=== PATIENT | female | born 1950 | race Caucasian/White ===

== ENCOUNTER → 2016-08-15 | Outpatient (CLI) | payer BC ==
[~2016-08-15] MED LIST: BNC40 PO; DLTCD/240 PO; METO10TA3 PO; NSNN50; NXM/40 PO; PHEN100C88 PO; PLV75 PO; RANI300T PO
[2016-08-15 11:42] LABS: BASO % 0.3 %; BASO ABS # 0.02 K/uL (0-0.2); COMPLETE YES; EOS % 6.5 %; HEMATOCRIT 45.4 % (37-47); IG% 0.2 %; LYMPH ABS # 2.25 K/uL (1.2-3.4); MEAN CELL VOLUME 96.8 fL (80-100); MEAN CORPUSCULAR HEMOGLOBIN 33.5 pg (25-34); MEAN CORPUSCULAR HGB CONC 34.6 g/dl (32-36); MEAN PLATELET VOLUME 10.4 fL (7.4-10.4); PLATELET COUNT 277 K/uL (130-400); RED BLOOD COUNT 4.69 M/uL (4.2-5.4); WHITE BLOOD COUNT 6.42 K/uL (4.8-10.8)
[2016-08-15 11:50] LABS: ALT/SGPT 22 U/L (12-78); AST/SGOT 15 U/L (15-37); BLOOD UREA NITROGEN 12 mg/dl (7-18); BUN/CREATININE RATIO 15.2 (10-20); CALCIUM 9.1 mg/dl (8.5-10.1); CARBON DIOXIDE 29 mmol/L (21-32); CHLORIDE 107 mmol/L (98-107); CREATININE 0.81 mg/dl (0.60-1.20); GLUCOSE 88 mg/dl (70-99); POTASSIUM 3.8 mmol/L (3.5-5.1); SODIUM 143 mmol/L (136-145)
[2016-08-15 12:01] LABS: ALB/GLOB RATIO 1.2 (0.9-2); ALKALINE PHOSPHATASE 74 U/L (45-117); CHOLESTEROL 169 mg/dl (0-200); HDL CHOLESTEROL 84 mg/dl; LDL CHOLESTEROL CALCULATED 69 mg/dl; TRIGLYCERIDES 78 mg/dl (0-150); VERY LOW DENSITY LIPOPROT CALC 16 mg/dl
[2016-08-15 13:49] LABS: URINE APPEARANCE CLEAR (CLEAR); URINE BILIRUBIN NEG (NEG); URINE COLOR DK YELLOW; URINE EPITHELIAL CELL AUTO 20-30 /lpf (0-5); URINE NITRITE NEG (NEG); URINE SPECIFIC GRAVITY 1.019 (1.000-1.030); UROBILINOGEN NEG (NEG)
[2016-08-15 13:50] LABS: MANUAL MICROSCOPIC REQUIRED? NO; REVIEW REQ? NO
== END | disposition home or self-care (01) ==
LOC: C.LABBC 07:33
PROVIDERS: ATTEND Anesthesiology
DX: M81.0 Age-related osteoporosis without current pathological fracture (principal); J44.9 Chronic obstructive pulmonary disease, unspecified; C96.6 Unifocal Langerhans-cell histiocytosis; I10 Essential (primary) hypertension; G47.33 Obstructive sleep apnea (adult) (pediatric); R53.83 Other fatigue

== ENCOUNTER → 2017-03-26 | Outpatient (CLI) | payer BC ==
--- NOTE | 2017-03-26 15:23 | MAMMOGRAPHY REPORT ---
BILATERAL DIGITAL SCREENING MAMMOGRAM WITH CAD: 03/26/2017 CLINICAL HISTORY: Routine screening. Patient has no complaints. TECHNIQUE: Bilateral CC and MLO views were obtained. Current study was also evaluated with a Comput er Aided Detection (CAD) system. COMPARISON: Comparison is made to exams dated: 03/23/2016 mammogram, 03/22/2015 mammogram, 03/19/2014 m ammogram, 03/17/2013 mammogram, 03/14/2012 mammogram, and 03/13/2011 mammogram - [facility] ter. BREAST COMPOSITION: There are scattered areas of fibroglandular density in both breasts. FINDINGS: Linear scar markers overlie each breast, denoting skin surgical scars. There are scattere d benign coarse calcifications bilaterally. There is a 5 mm focal asymmetry in the 12:00 posterior left breast, for which additional spot domonique jacquelyn tomosynthesis views and possible ultrasound are recommended. Nodular asymmetries in the lateral , middle one third of the right breast on the CC view are increasingly conspicuous compared to prior exams. Although they could represent normal overlapping glandular tissue, additional spot compressio n tomosynthesis views and possibly ultrasound are recommended. No other suspicious mass, architectural distortion or cluster of microcalcifications is seen bilatera lly. IMPRESSION: ACR BI-RADS CATEGORY 0: INCOMPLETE EVALUATION: NEED ADDITIONAL IMAGING EVALUATION The 5 mm focal asymmetry in the 12:00 posterior left breast, and nodular asymmetries in the lateral r ight breast need additional imaging evaluation. The patient will be called to schedule an appointment. Approximately 10% of breast cancers are not detected with mammography. A negative mammographic report should not delay biopsy if a clinically suggestive mass is present. Shi Streeter M.D. ay/:03/26/2017 14:02:18 [employer]p Analytics: Deedee Fish RT(R)(M), [facility] letter sent: Addl Imaging 0 BI-RADS Code: ACR BI-RADS Category 0: Incomplete Evaluation: Need Additional Imaging Evaluation
== END | disposition home or self-care (01) ==
LOC: C.MAMM 09:34
PROVIDERS: ATTEND Internal Medicine Pulmonary Disease
DX: Z12.31 Encounter for screening mammogram for malignant neoplasm of breast (principal); R92.8 Other abnormal and inconclusive findings on diagnostic imaging of breast

== ENCOUNTER → 2017-03-29 | Outpatient (CLI) | payer BC ==
--- NOTE | 2017-03-29 16:11 | MAMMOGRAPHY REPORT ---
BILATERAL DIGITAL DIAGNOSTIC MAMMOGRAM TOMOSYNTHESIS AND TARGETED BILATERAL ULTRASOUND: 03/29/2017 CLINICAL HISTORY: Callback from screening mammogram for bilateral asymmetries. TECHNIQUE: Breast tomosynthesis in addition to standard 2D mammography was performed. Spot compress ion bilateral CC and left MLO 2-D and tomosynthesis images were obtained. COMPARISON: Comparison is made to exams dated: 03/26/2017 mammogram, 03/23/2016 mammogram, 03/22/2015 m ammogram, 03/19/2014 mammogram, 03/17/2013 mammogram, and 03/14/2012 mammogram - [facility]ter. BREAST COMPOSITION: The tissue of both breasts is heterogeneously dense, which may obscure small mas ses. FINDINGS: Spot imaging views of the left breast demonstrate a lobulated 6 mm partially circumscribed and partially obscured low-density mass in the left 12:00 posterior breast. Compression views of th e right breast demonstrate 2 persistent nodular asymmetries within the right lateral breast seen on t he cc view only, one measuring 4 mm and the other measuring approximately 6 mm. Targeted ultrasound was performed of the right lateral breast in the region of the mammographic asymm etries. In the right breast at 10:00, 2 cm from the nipple, there is an oval anechoic circumscribed 3 x 3 m mass, consistent with a cyst. In the right breast at 10:00 periareolar region, there is also a round circumscribed anechoic mass with a thin internal septation, measuring 4 x 4 mm. These sarah s likely correspond with the nodular asymmetries seen mammographically. Targeted ultrasound was performed of the left 12:00 breast in the region of the mammographic mass. T here is a possible oval hypoechoic circumscribed 4 x 4 mm mass in the left 12:00 periareolar breast. This may potentially correspond with the mammographic mass and is probably benign and may represent a cyst or focal duct ectasia. In the left 11:00 periareolar breast, there is an oval circumscribed i soechoic 7 x 7 mm mass, which is probably benign and may represent a normal fat lobule versus a benig n-appearing solid mass. In the left 6:00 breast, 2 cm from the nipple, there is a 7 x 7 mm anechoic benign simple cyst, as well as an adjacent 4 mm simple cyst. IMPRESSION: ACR-BI-RADS CATEGORY 3: PROBABLY BENIGN, TARGETED ULTRASOUND ACR-BI-RADS CATEGORY 3: PRO BABLY BENIGN 1. Low density, partially circumscribed 6 mm mass in the left 12:00 posterior breast mammographicall y. A definite sonographic correlate is not evident although a few probable cysts were seen on ultras ound one of which may correlate. Recommend follow-up diagnostic tomosynthesis mammograms of the left breast and possible ultrasound in 6 months to reevaluate. 2. Two small nodular asymmetries seen within the right lateral breast mammographically, with 2 cysts seen within the right breast at 10:00 on ultrasound which are felt to correspond with the asymmetrie s. Recommend follow-up diagnostic tomosynthesis mammograms of possible ultrasound of the right breas t in 6 months to confirm stability. The patient has been verbally notified of the results. Approximately 10% of breast cancers are not detected with mammography. A negative mammographic report should not delay biopsy if a clinically suggestive mass is present. Shannan Estevez M.D. ah/:03/29/2017 14:48:55 Form Setter: Daniela BONILLA(Mary)(M), [facility] letter sent: Follow Up Recommended 3 BI-RADS Code: ACR-BI-RADS Category 3: Probably Benign Ultrasound BI-RADS: ACR-BI-RADS Category 3: Pr obably Benign
== END | disposition home or self-care (01) ==
LOC: C.MAMM 13:14
PROVIDERS: ATTEND Internal Medicine Pulmonary Disease
DX: N63 Unspecified lump in breast (principal); N60.01 Solitary cyst of right breast; R92.8 Other abnormal and inconclusive findings on diagnostic imaging of breast

== ENCOUNTER → 2017-04-26 | Outpatient (CLI) | payer BC | END | disposition home or self-care (01) | LOC: C.MAMM 12:45 | PROVIDERS: ATTEND Physician Assistant | DX: M81.0 Age-related osteoporosis without current pathological fracture (principal); M85.89 Other specified disorders of bone density and structure, multiple sites ==

== ENCOUNTER → 2017-04-27 | Outpatient (CLI) | payer BC ==
--- NOTE | 2017-04-27 10:55 | DIAGNOSTIC IMAGING REPORT ---
RIGHT FOOT 3 VIEWS CLINICAL HISTORY: Right foot pain. FINDINGS: 3 views of the right foot are obtained. No prior studies are available for comparison at the time of dictation. The skeletal structures are osteopenic. No fracture is seen. Mild arthritic change is noted at the first metatarsophalangeal joint. A small os naviculari is incidentally noted. The overlying soft tissues are within normal limits. IMPRESSION: No acute bony abnormality is seen in the right foot. Electronically signed by: Carlos Vicente M.D. 04/27/2017 10:54 AM Dictated Date/Time: 04/27/2017 10:52 AM
== END | disposition home or self-care (01) ==
LOC: C.RDSM 10:40
PROVIDERS: ATTEND Physician Assistant
DX: M79.671 Pain in right foot (principal)

== ENCOUNTER → 2017-07-09 | Outpatient (CLI) | payer BC ==
[2017-07-09 11:17] LABS: BASO % 0.3 %; BASO ABS # 0.02 K/uL (0-0.2); COMPLETE YES; EOS % 8.2 %; HEMATOCRIT 46.8 % (37-47); IG% 0.1 %; LYMPH % 35.5 %; LYMPH ABS # 2.48 K/uL (1.2-3.4); MEAN CELL VOLUME 97.1 fL (80-100); MEAN CORPUSCULAR HEMOGLOBIN 32.6 pg (25-34); MEAN CORPUSCULAR HGB CONC 33.5 g/dl (32-36); MEAN PLATELET VOLUME 10.3 fL (7.4-10.4); MONO % 7.6 %; NEUT % 48.3 %; PLATELET COUNT 320 K/uL (130-400); RED BLOOD COUNT 4.82 M/uL (4.2-5.4); WHITE BLOOD COUNT 6.99 K/uL (4.8-10.8)
[2017-07-09 11:50] LABS: ALT/SGPT 25 U/L (12-78); AST/SGOT 16 U/L (15-37); BLOOD UREA NITROGEN 12 mg/dl (7-18); CALCIUM 9.5 mg/dl (8.5-10.1); CARBON DIOXIDE 28 mmol/L (21-32); CHLORIDE 103 mmol/L (98-107); CHOLESTEROL 176 mg/dl (0-200); CREATININE 0.76 mg/dl (0.60-1.20); GLUCOSE 101 mg/dl (70-99); POTASSIUM 3.6 mmol/L (3.5-5.1); SODIUM 137 mmol/L (136-145)
[2017-07-09 12:01] LABS: ALB/GLOB RATIO 1.1 (0.9-2); ALKALINE PHOSPHATASE 76 U/L (45-117); CHOLESTEROL/HDL RATIO 2.3; HDL CHOLESTEROL 77 mg/dl; LDL CHOLESTEROL CALCULATED 81 mg/dl; TRIGLYCERIDES 90 mg/dl (0-150); VERY LOW DENSITY LIPOPROT CALC 18 mg/dl
== END | disposition home or self-care (01) ==
LOC: C.LABBC 07:30
PROVIDERS: ATTEND Internal Medicine Pulmonary Disease
DX: J44.9 Chronic obstructive pulmonary disease, unspecified (principal); C96.6 Unifocal Langerhans-cell histiocytosis; E78.00 Pure hypercholesterolemia, unspecified; G71.0 Muscular dystrophy; Z11.59 Encounter for screening for other viral diseases; I10 Essential (primary) hypertension; R53.83 Other fatigue

== ENCOUNTER → 2017-08-27 | Outpatient (CLI) | payer BC ==
[2017-08-27 14:08] LABS: BLOOD UREA NITROGEN 30 mg/dl (7-18); CALCIUM 9.6 mg/dl (8.5-10.1); CARBON DIOXIDE 26 mmol/L (21-32); CREATININE 0.87 mg/dl (0.60-1.20); GLUCOSE 103 mg/dl (70-99); POTASSIUM 3.6 mmol/L (3.5-5.1); SODIUM 135 mmol/L (136-145)
== END | disposition home or self-care (01) ==
LOC: C.LABBC 09:39
PROVIDERS: ATTEND Internal Medicine
DX: M81.0 Age-related osteoporosis without current pathological fracture (principal)

== ENCOUNTER → 2017-09-10 | Outpatient (CLI) | payer BC ==
[2017-09-10 09:53] LABS: HEMOGLOBIN A1C 5.4 % (4.5-5.6)
== END | disposition home or self-care (01) ==
LOC: C.LAB 08:30
PROVIDERS: ATTEND Internal Medicine Endocrinology, Diabetes & Metabolism
DX: M50.20 Other cervical disc displacement, unspecified cervical region (principal); M54.12 Radiculopathy, cervical region; M50.30 Other cervical disc degeneration, unspecified cervical region

== ENCOUNTER → 2017-10-01 | Outpatient (CLI) | payer BC ==
--- NOTE | 2017-10-02 07:57 | MAMMOGRAPHY REPORT ---
BILATERAL DIGITAL DIAGNOSTIC MAMMOGRAM TOMOSYNTHESIS WITH CAD AND TARGETED BILATERAL ULTRASOUND: 10/01 CLINICAL HISTORY: 67-year-old woman presents for close follow-up in both breasts, 4 nodular asymmetry in the posterior left breast along the posterior nipple line on the CC view, and 2 nodular asymmetri es in the lateral right breast on the CC view. During this diagnostic appointment the patient also r eported a right pustular lesion of the left nipple which she reports has been present for a long time and sometimes is able to elicit whitish material from this lesion. TECHNIQUE: Bilateral CC and MLO 2-D and tomosynthesis images were obtained. Current study was also e valuated with a Computer Aided Detection (CAD) system. COMPARISON: Comparison is made to exams dated: 03/29/2017 ultrasound, 03/29/2017 mammogram, 03/26/2017 mammogram, 03/23/2016 mammogram, 03/22/2015 mammogram, and 03/19/2014 mammogram - [facility]. BREAST COMPOSITION: The tissue of both breasts is heterogeneously dense, which may obscure small mas ses. FINDINGS: A linear scar marker overlies the 6:00 left breast. There are scattered benign coarse calc ifications in the breasts. 2 nodular asymmetries in the lateral, middle one third of the right breas t are stable to slightly less prominent appearing to the 03/26/2017 mammogram, and the glandular tiss ue pattern in this area is similar to the 03/22/2015 and 03/14/2012 mammograms, suggesting it represe nts the patient's baseline. The nodular asymmetry in the posterior left breast along the posterior n ipple line on the CC view is no longer seen, and there is no corresponding abnormality on the tomosyn thesis images in that location, confirming benignity. No obvious new mass, architectural distortion, developing asymmetry or suspicious microcalcifications are seen bilaterally. Targeted ultrasound was performed in the lateral right breast in the area of the 2 nodular asymmetrie s. In the 11:00 periareolar right breast, an isoechoic to slightly hypoechoic parallel circumscribed mass versus prominent fat lobule is again identified, measuring 8.0 x 2.8 x 7.9 mm. This has not si gnificantly changed comparing to the prior ultrasound at which time it measured 9 x 7 mm. There is a tiny cyst in the 7:00 right breast, 5 cm from the nipple, measuring 3.9 x 1.2 x 2.9 mm, and another tiny cyst in the 10:00 right breast, 2 cm from the nipple, measuring 1.4 mm. No suspicious solid mas ses seen throughout the lateral right breast on targeted ultrasound. Additional targeted ultrasound was performed over the whiteish pustule on the left nipple. There is a superficial possibly intradermal oval circumscribed hypoechoic lesion with evidence of posterior ac oustic enhancement, measuring 5.1 x 2.9 x 5.5 mm. No internal vascularity is demonstrated. This cou ld represent an epidermal inclusion cyst given the sonographic appearance and patient history of whit shirley discharge. However, recommend clinical follow-up with the patient's senior relationship manager, in case any s kin scraping or biopsy may be needed. IMPRESSION: ACR BI-RADS CATEGORY 2: BENIGN, TARGETED ULTRASOUND ACR BI-RADS CATEGORY 2: BENIGN 1. A tiny nodular asymmetry in the posterior left breast along the posterior nipple line on the CC v iew is no longer seen, confirming benignity. There is no mammographic evidence of malignancy in the left breast. 2. Two nodular asymmetries in the lateral, middle one third of the right breast on the CC view are s table comparing to numerous prior mammograms, and have no suspicious sonographic correlate, most like ly representing normal fibroglandular tissue. No further close follow-up is needed at this time. 3. An incidentally identified isoechoic to hypoechoic subcentimeter lesion in the 11:00 right breast on ultrasound stable and also considered benign. 4. A small whitish pustule on the left nipple appears to be intradermal and could represent an epide rmal inclusion cyst or a complicated cyst. No internal vascularity is demonstrated to suggest a fozia d lesion or papilloma. However, follow-up with the patient's senior relationship manager is suggested. 5. Would otherwise recommend return to annual screening mammography, due in March 2018. These results and recommendations were discussed with the patient at the time of the exam. Approximately 10% of breast cancers are not detected with mammography. A negative mammographic report should not delay biopsy if a clinically suggestive mass is present. Shi Streeter M.D. ay/:10/01/2017 12:41:38 Director Adult: Daniela Duenas, [facility] letter sent: Normal 08/07 BI-RADS Code: ACR BI-RADS Category 2: Benign Ultrasound BI-RADS: ACR BI-RADS Category 2: Benign
== END | disposition home or self-care (01) ==
LOC: C.MAMM 09:33
PROVIDERS: ATTEND Internal Medicine Pulmonary Disease
DX: R92.8 Other abnormal and inconclusive findings on diagnostic imaging of breast (principal)

== ENCOUNTER 2019-01-30 16:43 | Inpatient (IN) ==
[2019-01-30] MEDS ORDERED: ONDANSETRON INJ 2 MG/ML 2 ML VIAL IV STA (16:54)
[2019-01-30] MEDS ORDERED: MoRPHine SULFATE 4 MG/ML 1 ML CARP\\VIAL IV STA ×2 (16:54→19:37)
[2019-01-30 17:22] LABS: Basophils # (auto) 0.01 K/uL (0-0.2); Basophils % (auto) 0.1 %; Eosinophils # (auto) 0.03 K/uL (0-0.5); Eosinophils % (auto) 0.2 %; Hematocrit (blood only) 41.9 % (37-47); Hemoglobin 14.7 g/dL (12.0-16.0); Immature Granulocytes # (auto) 0.03 K/uL (0.00-0.02); Immature Granulocytes % (auto) 0.2 %; Lymphocytes # (auto) 0.92 K/uL (1.2-3.4); Lymphocytes % (auto) 6.8 %; Mean Corpuscular Hgb Conc 35.1 g/dL (32-36); Mean Corpuscular Volume 93.5 fL (80-100); Mean Platelet Volume 9.3 fL (7.4-10.4); Monocytes # (auto) 1.09 K/uL (0.11-0.59); Neutrophils # (auto) 11.49 K/uL (1.4-6.5); Neutrophils % (auto) 84.7 %; Platelet Count 367 K/uL (130-400); RDW Coefficient of Variation 12.6 % (11.5-14.5); Red Blood Count 4.48 M/uL (4.2-5.4); White Blood Count 13.57 K/uL (4.8-10.8)
[2019-01-30 17:46] LABS: Alanine Aminotransferase 19 U/L (12-78); Albumin Level 4.1 gm/dl (3.4-5.0); Aspartate Aminotransferase 16 U/L (15-37); BUN Creatinine Ratio 15.2 (10-20); Blood Urea Nitrogen 13 mg/dl (7-18); Calcium 11.2 mg/dl (8.5-10.1); Carbon Dioxide 30 mmol/L (21-32); Chloride 92 mmol/L (98-107); Creatinine Clr Calc Pharmacy 54.3 ml/min; Est GFR (African American) 85.2; Est GFR (Non-African American) 73.5; Glucose 153 mg/dl (70-99); Potassium 3.3 mmol/L (3.5-5.1); Sodium 131 mmol/L (136-145)
[2019-01-30 17:49] LABS: Albumin Globulin Ratio 1.1 (0.9-2); Alkaline Phosphatase 63 U/L (45-117); Bilirubin,Total 0.5 mg/dl (0.2-1); Globulin 3.6 gm/dl (2.5-4.0); Total Protein 7.7 gm/dl (6.4-8.2)
[2019-01-30 18:02] LABS: Troponin I < 0.015 ng/ml (0-0.045)
--- NOTE | 2019-01-30 18:25 | CT Scan Report ---
CT SCAN OF THE ABDOMEN AND PELVIS WITHOUT IV CONTRAST CLINICAL HISTORY: Generalized abdominal pain. COMPARISON STUDY: Abdominal CT dated 04/10/2014. TECHNIQUE: CT scan of the abdomen and pelvis is performed from the lung bases to the proximal femora. Images are reviewed in the axial, sagittal, and coronal planes. IV contrast was not administered for this examination as per the referring clinician. Note that the examination was performed in suboptim al fashion without oral and IV contrast. A dose lowering technique was utilized ad[facility] CT DOSE: 252.77 mGy.cm FINDINGS: Lung bases: The heart is mildly enlarged and there is a small pericardial effusion. The coronary narcisa xena are densely calcified. Emphysematous change is noted the lung bases. No airspace consolidation o r pleural effusion is identified. There is bibasilar scarring/atelectasis. Liver: The unenhanced liver is normal in size, contour, and attenuation. There is no intrahepatic rose marie iary ductal dilatation. A 12 mm cyst is noted in the right lobe. Gallbladder: Unremarkable. Spleen: Normal in size and attenuation. Pancreas: The unenhanced pancreas is mildly atrophic and grossly unremarkable. Adrenal glands: Unremarkable. Kidneys: The unenhanced kidneys are normal in size and without hydronephrosis. There are no renal sarai culi identified. There is no evidence of contour deforming renal mass lesion. Abdominal vasculature: The abdominal aorta is normal in course and caliber noting advanced atheroscle rotic calcification. Bowel: The stomach and proximal small bowel loops are markedly distended and filled with fluid. Small bowel loops measure up to 4.3 cm in diameter. The distal small bowel is decompressed, and a transiti on point is identified in the ileum in the pelvis seen on image #[id number]. This is consistent with a small bowel obstruction. There is fecalization of the distal small bowel above the transition point. There may be mild wall thickening of the small bowel at the transition point. There is no pneumatosis inte stinalis or portal venous gas. There is moderate sigmoid diverticulosis without CT evidence of acute diverticulitis. The appendix is not identified and reported surgically absent. Peritoneum: There is no intraperitoneal free air or abdominal ascites. Trace free fluid is noted in t he pelvis. Lymphadenopathy: None. Pelvic viscera: The bladder is normal as visualized. The uterus is surgically absent. No adnexal lesi on is seen. Skeletal structures: The skeletal structures are osteopenic. [id number] lumbosacral spondylosis is noted. No lytic or blastic lesions are seen. IMPRESSION: 1. Suboptimal examination without oral and IV contrast. 2. Findings are consistent with a high-grade small bowel obstruction. A transition point is identifie d in the distal small bowel within the central pelvis, and this is likely on the basis of adhesions. 3. Question mild bowel wall thickening at the transition point. No additional thick-walled bowel loop s are suggested. There is no intraperitoneal free air, pneumatosis intestinalis, or portal venous gas . 4. Emphysema. 5. Moderate sigmoid diverticulosis without CT evidence of acute diverticulitis. 6. Additional findings as above. Electronically signed by: Carlos Vicente M.D. 01/30/2019 6:24 PM
[2019-01-30] MEDS ORDERED: SODIUM CHLORIDE 0.9% 1000ML 1,000 ML IV SCH (18:45)
[2019-01-30] MEDS ORDERED: ONDANSETRON INJ 2 MG/ML 2 ML VIAL ONE (19:51)
--- NOTE | 2019-01-30 20:13 | History & Physical Report ---
Date of Service January 30, 2019 Assessment & Plan (1) H/O: hysterectomy: (2) S/P appendectomy: (3) Small bowel obstruction: 68-year-old female with history of prior small bowel obstruction in 2013 due to adhesions presents with abdominal pain x2 days, since last night. Past medical history: small bowel obstruction in 2014 due to adhesions, hypertension, COPD, stroke 20 years ago, prediabetes, muscular dystrophy, gastroparesis, GERD Small bowel obstruction likely due to adhesions History of hysterectomy, appendectomy, exploratory laparotomy in 2013 for SBO Initially tachycardic to 100s, hypertensive then BP dropped to 80s/50s but improved again after IV fluids White blood cell count 13.5, afebrile CT abdomen: High-grade SBO transition point distal small bowel within central pelvis likely from adhesions, mild bowel wall thickening at transition point, no intraperitoneal free air or pneumatosis intestinalis, emphysema, moderate sigmoid diverticulosis Place NG Started on Zosyn empirically Tylenol IV, low-dose Toradol for pain Zofran as needed for nausea/vomiting Bowel restn.p.o. Surgery consulted: Dr. Alexander evaluated patient, recommended NG and upper GI series tomorrow morning Hyponatremia likely in the setting of hypovolemia Sodium 131 Received 2 L IV fluids in the ED Continue LR at 150 cc/h Continue to monitor BMP Hypercalcemic Sample likely hemoconcentrated in the setting of patient being significantly hypovolemic Calcium 11.2 Continue to monitor BMP, consider further work-up if continues to be elevated Hypokalemic K3.3 Repleted 40 meq KCl IV Continue to monitor BMP Prediabetes Hold metformin SSI and glucose checks per unit protocol Hypertension Hold olmesartan and diltiazem in the setting of hypotension COPD Continue home mometasone inhaler Muscular dystrophy Hold phenytoin as patient n.p.o. resume once able to take p.o. GERD On omeprazole and ranitidine at home History of gastroparesis On metoclopramide at home History of CVA 20 years ago Hold Plavix in the setting of potential surgery for SBO DVT prophylaxis: SCD only, encourage ambulation hold chemical in the setting of potential surgery Code: Full Dispo: PCU telemetry (4) HTN (hypertension): (5) COPD (chronic obstructive pulmonary disease): (6) Muscular dystrophy: (7) GERD (gastroesophageal reflux disease): (8) Gastroparesis: (9) Prediabetes: (10) History of CVA (cerebrovascular accident): History of Present Illness Chief Complaint: Abdominal pain Primary Care Provider: Don Winter MD 68-year-old female with history of prior small bowel obstruction in 2013 due to adhesions presents with abdominal pain x2 days, since last night. Found to have high-grade small bowel obstruction on abdominal CT in the ED. Abdominal pain is sharp in nature and constant. Associated with nausea. Denies vomiting, diarrhea/constipation. Patient had a normal bowel movement this morning and last passed flatus yesterday. Last meal was this morning, had toast for breakfast. Denies any fever/chills, chest pain, shortness of breath, dysuria, hematuria. Of note: Patient had cataract surgery recently and thus both eyes red from that. Past medical history: small bowel obstruction in 2013 due to adhesions, hypertension, COPD, stroke 20 years ago, prediabetes, muscular dystrophy, gastroparesis, GERD Past surgical history: Hysterectomy and appendectomy, exploratory laparotomy in 2013 for SBO Social history: Smoked for 40 years less than one pack per day quit 5 years ago Allergies Allergy/AdvReac Type Severity Reaction Status Date / Time Iodinated Contrast- Oral and Allergy Unknown . Verified 01/30/19 17:27 IV Dye Penicillins Allergy Unknown Verified 01/30/19 17:27 Sulfa (Sulfonamide Allergy Unknown . Verified 01/30/19 17:27 Antibiotics) Tetracyclines Allergy Unknown Verified 01/30/19 17:27 Home Medications Home Medications Medication Instructions Recorded Confirmed Type clopidogrel 75 mg PO QAM #0 04/10/14 01/30/19 History diltiazem HCl 240 mg PO QAM #0 04/10/14 01/30/19 History esomeprazole magnesium 40 mg PO PM #0 04/10/14 01/30/19 History metoclopramide HCl 10 mg PO PM #0 04/10/14 01/30/19 History mometasone 1 spray INTRANASAL DAILY #0 04/10/14 01/30/19 History olmesartan 40 mg PO PM #0 04/10/14 01/30/19 History ranitidine HCl 300 mg PO QAM #0 04/10/14 01/30/19 History acetaminophen [Tylenol Extra 500 mg PO Q6H PRN 01/30/19 01/30/19 History Strength] metformin 500 mg PO BID 01/30/19 01/30/19 History phenytoin sodium extended 100 mg PO BIDM 01/30/19 01/30/19 History Past Med/Surg History Medical History Small bowel obstruction (Acute 04/10/14) Diabetes Surgical History H/O: hysterectomy (Resolved) S/P appendectomy (Resolved) Family History Other Family history non-contributory Social History Preferred Language: Turkish Communication Ability: Effective Beliefs That Will Affect Care: None Current Living Situation: Spouse Other Information That Helps Us Care for You: No Feels Safe at Home: Yes Safety Concerns: Feels Safe At This Time Smoking Status: Former smoker Hx Alcohol Use: Yes Alcohol type: wine Hx Substance Use: No Review of Systems Review of Systems: As per HPI Physical Exam Physical Exam: General: In NAD HEENT: bilateral subconjunctival hemorrhage L > R (post recent cataract surgery per pt), dry mucous membranes Neuro: A&O x 4 Pulm: Bibasilar crackles, equal breath sounds bilaterally CV: RRR, no m/r/g, cap refill > 3 sec Abdomen:+BS, mildly TTP in all quadrants, mildly distended, no rebound tenderness LE: no LE edema, no calf TTP Results & Data Vital Signs (Past 12 Hours) Vital Signs Temp Pulse Pulse Resp BP BP Pulse Ox 01/30/19 19:54 90 18 81/53 L 94 01/30/19 18:30 86 26 H 86 L 01/30/19 18:17 82 24 91 01/30/19 18:14 83 25 H 143/83 H 90 01/30/19 16:47 36.7 C 103 H 20 153/84 H 94 Laboratory Results Abnormal lab results 01/30/19 01/30/19 Range/Units 17:01 17:01 WBC 13.57 H (4.8-10.8) K/uL Immature Gran # (Auto) 0.03 H (0.00-0.02) K/uL Neut # (Auto) 11.49 H (1.4-6.5) K/uL Lymph # (Auto) 0.92 L (1.2-3.4) K/uL [place] # (Auto) 1.09 H (0.11-0.59) K/uL Sodium 131 L (136-145) mmol/L Potassium 3.3 L (3.5-5.1) mmol/L Chloride 92 L (98-107) mmol/L Glucose 153 H (70-99) mg/dl Calcium 11.2 H (8.5-10.1) mg/dl Diagnostic Findings CT SCAN OF THE ABDOMEN AND PELVIS WITHOUT IV CONTRAST CLINICAL HISTORY: Generalized abdominal pain. COMPARISON STUDY: Abdominal CT dated 04/10/2014. TECHNIQUE: CT scan of the abdomen and pelvis is performed from the lung bases to the proximal femora. Images are reviewed in the axial, sagittal, and coronal planes. IV contrast was not administered for this examination as per the referring clinician. Note that the examination was performed in suboptimal fashion without oral and IV contrast. A dose lowering technique was utilized adhering to the principles of ALARA. CT DOSE: 252.77 mGy.cm FINDINGS: Lung bases: The heart is mildly enlarged and there is a small pericardial effusion. The coronary arteries are densely calcified. Emphysematous change is noted the lung bases. No airspace consolidation or pleural effusion is identified. There is bibasilar scarring/atelectasis. Liver: The unenhanced liver is normal in size, contour, and attenuation. There is no intrahepatic biliary ductal dilatation. A 12 mm cyst is noted in the right lobe. Gallbladder: Unremarkable. Spleen: Normal in size and attenuation. Pancreas: The unenhanced pancreas is mildly atrophic and grossly unremarkable. Adrenal glands: Unremarkable. Kidneys: The unenhanced kidneys are normal in size and without hydronephrosis. There are no renal calculi identified. There is no evidence of contour deforming renal mass lesion. Abdominal vasculature: The abdominal aorta is normal in course and caliber noting advanced atherosclerotic calcification. Bowel: The stomach and proximal small bowel loops are markedly distended and filled with fluid. Small bowel loops measure up to 4.3 cm in diameter. The distal small bowel is decompressed, and a transition point is identified in the ileum in the pelvis seen on image #[id number]. This is consistent with a small bowel obstruction. There is fecalization of the distal small bowel above the transition point. There may be mild wall thickening of the small bowel at the transition point. There is no pneumatosis intestinalis or portal venous gas. There is moderate sigmoid diverticulosis without CT evidence of acute diverticulitis. The appendix is not identified and reported surgically absent. Peritoneum: There is no intraperitoneal free air or abdominal ascites. Trace free fluid is noted in the pelvis. Lymphadenopathy: None. Pelvic viscera: The bladder is normal as visualized. The uterus is surgically absent. No adnexal lesion is seen. Skeletal structures: The skeletal structures are osteopenic. [id number] lumbosacral spondylosis is noted. No lytic or blastic lesions are seen. IMPRESSION: 1. Suboptimal examination without oral and IV contrast. 2. Findings are consistent with a high-grade small bowel obstruction. A transition point is identified in the distal small bowel within the central pelvis, and this is likely on the basis of adhesions. 3. Question mild bowel wall thickening at the transition point. No additional thick-walled bowel loops are suggested. There is no intraperitoneal free air, pneumatosis intestinalis, or portal venous gas. 4. Emphysema. 5. Moderate sigmoid diverticulosis without CT evidence of acute diverticulitis. 6. Additional findings as above. Medications Administered Current Inpatient Medications Sodium Chloride (Nss 1000ml) 1,000 mls @ 125 mls/hr IV .Q8H DOREEN Stop: 03/01/19 18:44 Last Admin: 01/30/19 18:56 Dose: 125 mls/hr Documented by: Lactated Ringer's (Lr) 1,000 mls @ 999 mls/hr IV .Q1H1M ONE Stop: 01/30/19 21:16 Code Status & VTE Plan Code Status Full VTE Prophylaxis Plan VTE Prophylaxis will be ordered: Yes Supervising Physician Co-Signing Physician Notes Attending addendum: I have physically seen this patient, have supervised the medical residents activities, and agree with the H&P unless as otherwise noted. Assessment and Plan: High-grade small bowel obstruction/transition point central pelvis/associate with adhesions- Admit to medical surgical. NPO NG tube to low intermittent suction. Place empirically on Cipro and Flagyl IV, has penicillin allergy. Acetaminophen 1 g IV every 8 hours PRN mild pain or temperature. Toradol 15 mg IV every 6 hours as needed. Zofran 4 mg IV every 6 hours as needed. General surgery Dr. Alexander consulted and assessed while in ED. Remainder of orders and notations as noted PG Care Time/CCT Total # of Minutes Spent Total Time Spent with Patient: Total time spent is greater than 50% in coordination of care (as documented) at patient's floor/unit and/or counseling patient:
[2019-01-30] MEDS ORDERED: LACTATED RINGER'S 1,000 ML IV ONE (20:16)
--- NOTE | 2019-01-30 20:20 | Emergency Department Note ---
Entered by Ed Luna acting as a scribe for Mario Worthington MD History of Present Illness General Chief complaint: Abdominal Pain Stated complaint: EXTREME ABDOMINAL PAIN Time Seen by Provider: 01/30/19 16:52 Source: patient History of Present Illness Onset (ago): day(s) (last night) Location: abdomen Pain Consistency: + constant Maximum Pain Intensity: 9 Quality: + other (generalized abdominal pain) Relieved By: + medication (Tylenol) Associated symptoms: no fever/chills and no nausea/vomiting The patient is a 68 year old white female with PMHx of DM, appendectomy, hyste rectomy, and small bowel obstruction who presents to the Emergency Room with complaints of constant generalized abdominal pain beginning last night after eating dinner. The patient reports that her pain feels somewhat similar to prior small bowel obstruction, but it was more localized at that time. She states that she had a bowel movement yesterday and is not passing gas. She reports some improvement with Tylenol. The patient denies nausea, vomiting, fevers, chills, urinary symptoms, masses, vaginal bleeding/discharge, well water use, tick bites, or sick contact. She states that she has not eaten since the onset of her pain. The patient reports that she has two doses of a course of clindamycin remaining for infected salivary glands. She states that she still has her gallbladder. She is allergic to contrast. She notes that her previous small bowel obstruction required surgery for lysis of adhesions. Home Medications Home Medications Medication Instructions Recorded Confirmed Type clopidogrel 75 mg PO QAM #0 04/10/14 01/30/19 History diltiazem HCl 240 mg PO QAM #0 04/10/14 01/30/19 History esomeprazole magnesium 40 mg PO PM #0 04/10/14 01/30/19 History metoclopramide HCl 10 mg PO PM #0 04/10/14 01/30/19 History mometasone 1 spray INTRANASAL DAILY #0 04/10/14 01/30/19 History olmesartan 40 mg PO PM #0 04/10/14 01/30/19 History ranitidine HCl 300 mg PO QAM #0 04/10/14 01/30/19 History acetaminophen [Tylenol Extra 500 mg PO Q6H PRN 01/30/19 01/30/19 History Strength] metformin 500 mg PO BID 01/30/19 01/30/19 History phenytoin sodium extended 100 mg PO BIDM 01/30/19 01/30/19 History Allergies Allergy/AdvReac Type Severity Reaction Status Date / Time Iodinated Contrast- Oral and Allergy Unknown . Verified 01/30/19 17:27 IV Dye Penicillins Allergy Unknown Verified 01/30/19 17:27 Sulfa (Sulfonamide Allergy Unknown . Verified 01/30/19 17:27 Antibiotics) Tetracyclines Allergy Unknown Verified 01/30/19 17:27 Past Med/Surg History Medical History Small bowel obstruction (Acute 04/10/14) Diabetes Surgical History H/O: hysterectomy (Resolved) S/P appendectomy (Resolved) Family History Other Family history non-contributory Social History Preferred Language: Georgian Communication Ability: Effective Beliefs That Will Affect Care: None Current Living Situation: Spouse Other Information That Helps Us Care for You: No Feels Safe at Home: Yes Safety Concerns: Feels Safe At This Time Smoking Status: Former smoker Hx Alcohol Use: Yes Alcohol type: wine Hx Substance Use: No Review of Systems See HPI for pertinent positives & negatives. and A total of 10 systems reviewed and were otherwise negative Physical Exam Vital Signs Vital Signs - 24 hr 01/30/19 16:47 01/30/19 17:20 01/30/19 18:14 Temperature 36.7 C Temperature Source Oral Sepsis Recent Fever Within 48 Hours No Sepsis New/Unexplained Change in Mental Status No Sepsis Action Taken by Nursing No Action Required Pulse Rate 103 H 83 Pulse Rate [Right Finger] Pulse Rate from SpO2 Sensor 84 Pulse Rhythm Regular Pulse Strength Normal Respiratory Rate 20 25 H Respiratory Effort / Characteristics Non-Labored Spontaneous Respiratory Depth Normal Respiratory Pattern Regular Blood Pressure 153/84 H 143/83 H Blood Pressure [Right Arm] Blood Pressure Mean 107 103 Blood Pressure Mean [Right Arm] Blood Pressure Position Sitting Pulse Oximetry 94 90 Oxygen Delivery Method Room Air Room Air 01/30/19 18:17 01/30/19 18:30 01/30/19 19:54 Temperature Temperature Source Sepsis Recent Fever Within 48 Hours Sepsis New/Unexplained Change in Mental Status Sepsis Action Taken by Nursing Pulse Rate 82 86 85 Pulse Rate [Right Finger] 90 Pulse Rate from SpO2 Sensor 82 84 Pulse Rhythm Pulse Strength Respiratory Rate 24 26 H 16 Respiratory Effort / Characteristics Respiratory Depth Respiratory Pattern Blood Pressure 82/53 L Blood Pressure [Right Arm] 81/53 L Blood Pressure Mean 62 Blood Pressure Mean [Right Arm] 62 Blood Pressure Position Pulse Oximetry 91 86 L 94 Oxygen Delivery Method Room Air 01/30/19 19:55 01/30/19 20:00 01/30/19 20:18 Temperature Temperature Source Sepsis Recent Fever Within 48 Hours Sepsis New/Unexplained Change in Mental Status Sepsis Action Taken by Nursing Pulse Rate 84 83 83 Pulse Rate [Right Finger] Pulse Rate from SpO2 Sensor Pulse Rhythm Pulse Strength Respiratory Rate 18 22 19 Respiratory Effort / Characteristics Respiratory Depth Respiratory Pattern Blood Pressure 81/47 L 86/50 L 146/74 H Blood Pressure [Right Arm] Blood Pressure Mean 58 62 98 Blood Pressure Mean [Right Arm] Blood Pressure Position Pulse Oximetry Oxygen Delivery Method GENERAL: Well appearing, well nourished, NAD, non-toxic. EYE EXAM: Subconjunctival hemorrhage from the 3 to 6 o'clock position in the left eye. No hyphema. PERRL, no anisocoria and EOM's grossly intact w/o pain. OROPHARYNX: Moist mucous membranes. Grossly normal dentition. NECK: Supple, no nuchal rigidity, no adenopathy, non-tender. No signs of meningismus. LUNGS: Clear to auscultation. Normal chest wall mechanics. HEART: NSR, no MRG. ABDOMEN: Abdomen soft. Mild diffuse abdominal discomfort, worse in the lower abdomen. Not peritonitic. Normo-active bowel sounds, no masses, no rebound or guarding. BACK: No CVA TTP. SKIN: No rashes and no bruising. UPPER EXTREMITIES: Upper extremities are grossly normal. LOWER EXTREMITIES: No pitting edema. No calf pain. NEURO EXAM: A&O x3, cranial nerves II-XII grossly intact, normal speech, moves all 4 extremities on command w/o issue. Course 1701: The patient was evaluated in room C11B. A complete history and physical examination were performed. 183: I consulted Dr. Alexander General Surgery. He recommends admission to medicine, and he will act as a consult. 1844: I updated the patient on results and current plan for hospitalization. 1947: Dr. Dsouza - [facility] Hospitalist was notified of the patient. The patient will be reevaluated for hospitalization. Administered Medications Fluticasone Propionate (Flonase) 1 sprays NA DAILY DOREEN Stop: 03/02/19 08:59 Last Admin: 01/31/19 10:05 Dose: Not Given Documented by: [id number] Metronidazole (Flagyl) 500 mg in 100 mls @ 100 mls/hr IV Q8H DOREEN Stop: 02/09/19 21:59 Last Infusion: 01/31/19 06:07 Dose: 0 mls/hr Documented by: [id number] Admin: 01/31/19 04:58 Dose: 100 mls/hr Documented by: [id number] Infusion: 01/30/19 23:35 Dose: 0 mls/hr Documented by: [id number] Admin: 01/30/19 22:21 Dose: 100 mls/hr Documented by: [id number] Ciprofloxacin (Cipro) 400 mg in 200 mls @ 100 mls/hr IV Q12H DOREEN Stop: 02/09/19 21:59 Last Admin: 01/31/19 10:21 Dose: 100 mls/hr Documented by: [id number] Infusion: 01/31/19 03:49 Dose: 0 mls/hr Documented by: [id number] Admin: 01/31/19 00:25 Dose: 100 mls/hr Documented by: [id number] Lactated Ringer's (Lr) 1,000 mls @ 150 mls/hr IV .Q6H40M DOREEN Stop: 03/01/19 21:14 Last Admin: 01/31/19 10:49 Dose: 150 mls/hr Documented by: [id number] Infusion: 01/31/19 10:49 Dose: 150 mls/hr Documented by: [id number] Admin: 01/31/19 04:58 Dose: 150 mls/hr Documented by: [id number] Infusion: 01/31/19 04:47 Dose: 150 mls/hr Documented by: [id number] Admin: 01/30/19 22:06 Dose: 150 mls/hr Documented by: [id number] Ketorolac Tromethamine (Toradol) 15 mg IV Q6H PRN PRN Reason: Pain Stop: 02/04/19 21:14 Last Admin: 01/31/19 07:36 Dose: 15 mg Documented by: [id number] Admin: 01/30/19 22:05 Dose: 15 mg Documented by: [id number] Ondansetron HCl (Zofran) 4 mg IV Q6H PRN PRN Reason: Nausea Stop: 03/01/19 21:14 Last Admin: 01/30/19 22:05 Dose: 4 mg Documented by: [id number] Discontinued Medications Sodium Chloride (Nss 1000ml) 1,000 mls @ 125 mls/hr IV .Q8H DOREEN Stop: 03/01/19 18:44 Last Infusion: 01/31/19 00:05 Dose: 0 mls/hr Documented by: [id number] Admin: 01/30/19 18:56 Dose: 125 mls/hr Documented by: [id number] Lactated Ringer's (Lr) 1,000 mls @ 999 mls/hr IV .Q1H1M ONE Stop: 01/30/19 21:16 Last Infusion: 01/30/19 23:38 Dose: 0 mls/hr Documented by: [id number] Admin: 01/30/19 20:16 Dose: 999 mls/hr Documented by: [id number] Potassium Chloride (K Gary / Wtr) 10 meq in 100 mls @ 100 mls/hr IV Q1H DOREEN Stop: 01/31/19 01:14 Last Infusion: 01/31/19 03:49 Dose: 0 mls/hr Documented by: [id number] Admin: 01/31/19 01:40 Dose: 100 mls/hr Documented by: [id number] Infusion: 01/31/19 01:25 Dose: 100 mls/hr Documented by: [id number] Admin: 01/31/19 00:25 Dose: 100 mls/hr Documented by: [id number] Infusion: 01/31/19 00:21 Dose: 100 mls/hr Documented by: [id number] Admin: 01/30/19 23:21 Dose: 100 mls/hr Documented by: [id number] Infusion: 01/30/19 23:07 Dose: 100 mls/hr Documented by: [id number] Admin: 01/30/19 22:07 Dose: 100 mls/hr Documented by: [id number] Morphine Sulfate (Morphine Sulfate) 4 mg IV NOW STA Stop: 01/30/19 16:55 Last Admin: 01/30/19 17:36 Dose: 4 mg Documented by: [id number] Morphine Sulfate (Morphine Sulfate) 4 mg IV NOW STA Stop: 01/30/19 19:38 Last Admin: 01/30/19 19:41 Dose: 4 mg Documented by: [id number] Ondansetron HCl (Zofran) 4 mg IV NOW STA Stop: 01/30/19 16:55 Last Admin: 01/30/19 17:36 Dose: 4 mg Documented by: [id number] Ondansetron HCl (Zofran) Confirm Administered Dose 4 mg .ROUTE .STK-MED ONE Stop: 01/30/19 19:52 Last Admin: 01/30/19 19:54 Dose: 4 mg Documented by: [id number] Medical Decision Making Medical Records Attestation: I reviewed the patient's medical records. Home Medications Current Medication List: was personally reviewed by me Laboratory Data Attestation: I reviewed the patient's lab results. Result diagrams: 01/31/19 06:09 01/31/19 06:09 Lab Results 01/30/19 01/30/19 Range/Units 17:01 17:01 WBC 13.57 H (4.8-10.8) K/uL RBC 4.48 (4.2-5.4) M/uL Hgb 14.7 (12.0-16.0) g/dL Hct 41.9 (37-47) % MCV 93.5 (80-100) fL MCH 32.8 (25-34) pg MCHC 35.1 (32-36) g/dL RDW Std Deviation 43.0 (36.4-46.3) fL RDW Coeff of Lion 12.6 (11.5-14.5) % Plt Count 367 (130-400) K/uL MPV 9.3 (7.4-10.4) fL Immature Gran % (Auto) 0.2 % Neut % (Auto) 84.7 % Lymph % (Auto) 6.8 % Louisa % (Auto) 8.0 % Eos % (Auto) 0.2 % Baso % (Auto) 0.1 % Immature Gran # (Auto) 0.03 H (0.00-0.02) K/uL Neut # (Auto) 11.49 H (1.4-6.5) K/uL Lymph # (Auto) 0.92 L (1.2-3.4) K/uL Louisa # (Auto) 1.09 H (0.11-0.59) K/uL Eos # (Auto) 0.03 (0-0.5) K/uL Baso # (Auto) 0.01 (0-0.2) K/uL Sodium 131 L (136-145) mmol/L Potassium 3.3 L (3.5-5.1) mmol/L Chloride 92 L (98-107) mmol/L Carbon Dioxide 30 (21-32) mmol/L Anion Gap 9.0 (3-11) BUN 13 (7-18) mg/dl Creatinine 0.82 (0.6-1.2) mg/dl Est Cr Clr Drug Dosing 54.3 ml/min Est GFR ( Amer) 85.2 Est GFR (Non-Af Amer) 73.5 BUN/Creatinine Ratio 15.2 (10-20) Glucose 153 H (70-99) mg/dl Calcium 11.2 H (8.5-10.1) mg/dl Total Bilirubin 0.5 (0.2-1) mg/dl AST 16 (15-37) U/L ALT 19 (12-78) U/L Alkaline Phosphatase 63 (45-117) U/L Troponin I < 0.015 (0-0.045) ng/ml Total Protein 7.7 (6.4-8.2) gm/dl Albumin 4.1 (3.4-5.0) gm/dl Globulin 3.6 (2.5-4.0) gm/dl Albumin/Globulin Ratio 1.1 (0.9-2) Lipase 162 (73-393) U/L Imaging Data Radiologist's Impression: Radiology results as stated below per my review and the radiologist's interpretation: CT SCAN OF THE ABDOMEN AND PELVIS WITHOUT IV CONTRAST CLINICAL HISTORY: Generalized abdominal pain. COMPARISON STUDY: Abdominal CT dated 04/10/2014. TECHNIQUE: CT scan of the abdomen and pelvis is performed from the lung bases to the proximal femora. Images are reviewed in the axial, sagittal, and coronal planes. IV contrast was not administered for this examination as per the referring clinician. Note that the examination was performed in suboptimal fashion without oral and IV contrast. A dose lowering technique was utilized adhering to the principles of ALARA. CT DOSE: 252.77 mGy.cm FINDINGS: Lung bases: The heart is mildly enlarged and there is a small pericardial effusion. The coronary arteries are densely calcified. Emphysematous change is noted the lung bases. No airspace consolidation or pleural effusion is identified. There is bibasilar scarring/atelectasis. Liver: The unenhanced liver is normal in size, contour, and attenuation. There is no intrahepatic biliary ductal dilatation. A 12 mm cyst is noted in the right lobe. Gallbladder: Unremarkable. Spleen: Normal in size and attenuation. Pancreas: The unenhanced pancreas is mildly atrophic and grossly unremarkable. Adrenal glands: Unremarkable. Kidneys: The unenhanced kidneys are normal in size and without hydronephrosis. There are no renal calculi identified. There is no evidence of contour deforming renal mass lesion. Abdominal vasculature: The abdominal aorta is normal in course and caliber noting advanced atherosclerotic calcification. Bowel: The stomach and proximal small bowel loops are markedly distended and filled with fluid. Small bowel loops measure up to 4.3 cm in diameter. The distal small bowel is decompressed, and a transition point is identified in the ileum in the pelvis seen on image #[id number]. This is consistent with a small bowel obstruction. There is fecalization of the distal small bowel above the transition point. There may be mild wall thickening of the small bowel at the transition point. There is no pneumatosis intestinalis or portal venous gas. There is moderate sigmoid diverticulosis without CT evidence of acute diverticulitis. The appendix is not identified and reported surgically absent. Peritoneum: There is no intraperitoneal free air or abdominal ascites. Trace lucien e fluid is noted in the pelvis. Lymphadenopathy: None. Pelvic viscera: The bladder is normal as visualized. The uterus is surgically absent. No adnexal lesion is seen. Skeletal structures: The skeletal structures are osteopenic. [id number] lumbosacral spondylosis is noted. No lytic or blastic lesions are seen. IMPRESSION: 1. Suboptimal examination without oral and IV contrast. 2. Findings are consistent with a high-grade small bowel obstruction. A transition point is identified in the distal small bowel within the central pelvis, and this is likely on the basis of adhesions. 3. Question mild bowel wall thickening at the transition point. No additional thick-walled bowel loops are suggested. There is no intraperitoneal free air, pneumatosis intestinalis, or portal venous gas. 4. Emphysema. 5. Moderate sigmoid diverticulosis without CT evidence of acute diverticulitis. 6. Additional findings as above. Electronically signed by: Carlos Vicente M.D. 01/30/2019 6:24 PM ECG Data Attestation: I personally reviewed and interpreted this ECG as follows: Indication: abdominal pain Rate (beats per minute): 80 Rhythm: sinus rhythm Findings: + other (normal intervals, normal axis; no STS changes) and + T-wave inversion (V2) Blood Pressure Blood Pressure Findings: Elevated blood pressure Blood Pressure Disposition: further management by hospitalist [facility] Narrative Ancillary records reviewed/Prior records reviewed. Triage nursing summary reviewed. The patient is a 68 year old white female with PMHx of DM, appendectomy, hysterectomy, and small bowel obstruction who presents to the Emergency Room with complaints of constant generalized abdominal pain beginning last night after eating dinner. Differential diagnosis includes: appendicitis, diverticulitis, PUD, biliary pathology, UTI, pancreatitis, obstruction, mesenteric ischemia, aortic pathology, infections, inflammatory bowel disease, renal colic, as well as others were entertained. Patient was seen and evaluated the bedside. The patient was complained of some mild diffuse abdominal pain. The patient does have a prior history of an appendectomy and hysterectomy. Patient also did have a bowel obstruction approximate 5 years ago. Patient has complained of some mild nausea. Patient did have blood work completed along with a CT of the abdomen pelvis. The patient does have a high-grade small bowel obstruction. Patient had been borderline hypotensive but was maintaining a decent map. The patient was started on IV fluids. I did speak with the on-call surgeon who would see her as a consult. The patient has not had any vomiting's no NG was placed at this time. I did speak with the hospitalist who agreed to further evaluate treat the patient. Patient was admitted to the medicine service. Of note the patient does have subconjunctival hemorrhage of the left eye. The patient did have radiolucent cataract surgery but does not have any visual complaints at this time. Impression & Plan Small bowel obstruction, Abdominal pain Discharge Plan Visit Data *Final* Discharge Date/Time: 01/30/19 20:46 Chief Complaint: Abdominal Pain Stated Complaint: EXTREME ABDOMINAL PAIN ED Provider: Mario Worthington Discharge Problem: Small bowel obstruction, Abdominal pain Patient Disposition: Admitted As Inpatient Discharge Instructions Interventions: ED Discharge Assessment Last Done: 01/30/19 20:46 Discharge Problem: Abdominal pain Qualifiers: Abdominal location: generalized Qualified Code(s): R10.84 - Generalized abdominal pain The scribe's documentation has been prepared under my direction and personally reviewed by me in its entirety. I confirm that the note above accurately reflects all work, treatment, procedures, and medical decision making performed by me.
--- NOTE | 2019-01-30 20:34 | Surgery Consultation ---
Date of Consultation January 30, 2019 Assessment & Plan (1) Small bowel obstruction: Present time I recommended NG tube placement fluid resuscitation replenish her potassium and hopefully we can avoid surgery we will try conservative therapy first I will discuss with the radiologist tomorrow whether or not the patient could have oral contrast or an upper GI with small bowel follow-through may be sufficiently therapeutic Plans for similarly discussed with the medical imaging tech Present on Admission?: Yes History of Present Illness Reason for Consultation: Asked to see patient by the ER physician regarding recurrent bowel obstruction 68-year-old female previous history of hysterectomy appendectomy approximately 5 years ago came in with similar bowel obstruction was operated by Dr. Meron Crenshaw who did exploratory lap lysis of extensive adhesions the patient had done well and then within the last 24 hours she is nauseated with more abdominal distention she had been moving her bowels and evaluation the ER physician by CAT scan revealed a high-grade obstruction Allergies Allergy/AdvReac Type Severity Reaction Status Date / Time Iodinated Contrast- Oral and Allergy Unknown . Verified 01/30/19 17:27 IV Dye Penicillins Allergy Unknown Verified 01/30/19 17:27 Sulfa (Sulfonamide Allergy Unknown . Verified 01/30/19 17:27 Antibiotics) Tetracyclines Allergy Unknown Verified 01/30/19 17:27 Home Medications Home Medications Medication Instructions Recorded Confirmed Type clopidogrel 75 mg PO QAM #0 04/10/14 01/30/19 History diltiazem HCl 240 mg PO QAM #0 04/10/14 01/30/19 History esomeprazole magnesium 40 mg PO PM #0 04/10/14 01/30/19 History metoclopramide HCl 10 mg PO PM #0 04/10/14 01/30/19 History mometasone 1 spray INTRANASAL DAILY #0 04/10/14 01/30/19 History olmesartan 40 mg PO PM #0 04/10/14 01/30/19 History ranitidine HCl 300 mg PO QAM #0 04/10/14 01/30/19 History acetaminophen [Tylenol Extra 500 mg PO Q6H PRN 01/30/19 01/30/19 History Strength] metformin 500 mg PO BID 01/30/19 01/30/19 History phenytoin sodium extended 100 mg PO BIDM 01/30/19 01/30/19 History Patient History Medical History Small bowel obstruction (Acute 04/10/14) Diabetes Surgical History H/O: hysterectomy (Resolved) S/P appendectomy (Resolved) Family History Other Family history non-contributory Social History Preferred Language: Greek Feels Safe at Home: Yes Smoking Status: Former smoker Review of Systems Review of Systems: Patient overall health has been fine she is allergic to IV contrast may similarly be allergic to oral contrast She recently had bilateral cataract surgeries Physical Exam Physical Exam: Present time patient is alert no distress she is nauseated and feels like vomiting although she has not done so abdominal finding will the abdomen be softly distended it is not tender no localized no localized tenderness no masses no hernias Results & Data Vital Signs (Past 12 Hours) Vital Signs Temp Pulse Pulse Resp BP BP Pulse Ox 01/30/19 20:18 83 19 146/74 H 01/30/19 20:00 83 22 86/50 L 01/30/19 19:55 84 18 81/47 L 01/30/19 19:54 85 90 16 82/53 L 81/53 L 94 01/30/19 18:30 86 26 H 86 L 01/30/19 18:17 82 24 91 01/30/19 18:14 83 25 H 143/83 H 90 01/30/19 16:47 36.7 C 103 H 20 153/[address] scan of laboratory revaluated
[2019-01-30] MEDS ORDERED: ONDANSETRON INJ 2 MG/ML 2 ML VIAL IV PRN (21:15)
[2019-01-30] MEDS: KETOROLAC TROMETHAMINE 15 MG/ML VIAL IV PRN (22:05)
[2019-01-30] MEDS: LACTATED RINGER'S 1,000 ML IV SCH (22:06)
[2019-01-30] MEDS: POTASSIUM CHLORIDE / WTR 10 MEQ/100 ML PLCT IV SCH ×2 (22:07→23:21)
[2019-01-30] MEDS: metroNIDAZOLE 500 MG/100 ML BAG IV SCH ×2 (22:18→22:21)
[2019-01-31] MEDS: CIPROFLOXACIN 400 MG/200 ML BAG IV SCH ×2 (00:25→10:21)
[2019-01-31] MEDS: POTASSIUM CHLORIDE / WTR 10 MEQ/100 ML PLCT IV SCH ×2 (00:25→01:40)
[2019-01-31 02:04] LABS: Appearance Urine Cloudy (Clear); Bacteria Urine Automated Negative (Negative); Bilirubin Urine Negative (Negative); Blood Urine Negative (Negative); Color Urine Yellow; Glucose Urine UA Negative (Negative); Ketones Urine Trace (Negative); Leukocyte Esterase Urine Negative (Negative); Nitrite Urine Negative (Negative); Protein Urine Negative (Negative); RBC Urine Automated 0-4 /hpf (0-4); Specific Gravity Urine 1.016 (1.000-1.030); Urobilinogen Urine Negative (Negative); pH Urine 7.5 (4.5-7.5)
[2019-01-31] MEDS: LACTATED RINGER'S 1,000 ML IV SCH ×3 (04:58→21:16)
[2019-01-31] MEDS: metroNIDAZOLE 500 MG/100 ML BAG IV SCH (04:58)
[2019-01-31 06:47] LABS: Basophils # (auto) 0.02 K/uL (0-0.2); Basophils % (auto) 0.2 %; Eosinophils # (auto) 0.27 K/uL (0-0.5); Eosinophils % (auto) 2.5 %; Hematocrit (blood only) 37.3 % (37-47); Immature Granulocytes # (auto) 0.02 K/uL (0.00-0.02); Immature Granulocytes % (auto) 0.2 %; Lymphocytes % (auto) 11.1 %; Mean Corpuscular Hgb Conc 34.9 g/dL (32-36); Mean Corpuscular Volume 95.6 fL (80-100); Mean Platelet Volume 9.2 fL (7.4-10.4); Monocytes # (auto) 0.93 K/uL (0.11-0.59); Monocytes % (auto) 8.6 %; Neutrophils # (auto) 8.39 K/uL (1.4-6.5); Neutrophils % (auto) 77.4 %; Platelet Count 334 K/uL (130-400); RDW Coefficient of Variation 12.9 % (11.5-14.5); RDW Standard Deviation 44.8 fL (36.4-46.3); White Blood Count 10.83 K/uL (4.8-10.8)
[2019-01-31 07:18] LABS: Albumin Globulin Ratio 1.1 (0.9-2); Albumin Level 3.3 gm/dl (3.4-5.0); BUN Creatinine Ratio 18.1 (10-20); Bilirubin,Total 0.6 mg/dl (0.2-1); Calcium 9.1 mg/dl (8.5-10.1); Creatinine Clr Calc Pharmacy 69.9 ml/min; Est GFR (African American) 103.7; Est GFR (Non-African American) 89.4; Potassium 4.1 mmol/L (3.5-5.1); Total Protein 6.3 gm/dl (6.4-8.2)
[2019-01-31] MEDS: KETOROLAC TROMETHAMINE 15 MG/ML VIAL IV PRN ×2 (07:36→13:52)
--- NOTE | 2019-01-31 08:30 | Surgery Progress Note ---
Date of Service January 31, 2019 Assessment & Plan (1) Small bowel obstruction: seen with Dr. Alexander will check SBFT cont NGT Dr. Crenshaw covering the weekend, had performed her previous surgery Subjective feels some better after NGT, no flatus Physical Exam Gastrointestinal (Abdomen): Inspection/Auscultation: + abdomen distended (mild ly) Percussion/Palpation: abdomen nontender NGT 300 cc overnight Results & Data Vital Signs (Past 12 Hours) Vital Signs Temp Pulse Pulse Resp BP Pulse Ox 01/31/19 07:29 36.7 C 76 16 138/66 92 01/31/19 03:28 36.8 C 70 20 157/68 H 90 01/30/19 23:26 36.8 C 72 17 161/66 H 90 01/30/19 21:16 36.4 C L 86 169/67 H 91 01/30/19 21:00 88
[2019-01-31] MEDS: FLUTICASONE PROPIONATE NA SPR 16 GM BTL SCH (10:05)
[2019-01-31] MEDS: ACETAMINOPHEN 1,000 MG/100 ML VIAL IV PRN ×2 (13:01→21:30)
--- NOTE | 2019-01-31 13:25 | Hospitalist Progress Note ---
Date of Service January 31, 2019 Assessment & Plan (1) Small bowel obstruction: High grade SBO seen on CT a/p on 01/30. S/p prior surgeries with most recent being lysis of adhesions with Dr. Crenshaw ~5 years ago. - NG tube in place; low-intermittent suction - Surgery following - Appreciate assistance - Plan for small bowel imaging today (2) HTN (hypertension): Was briefly hypotensive in the ED down to 80/50. Her BP med was held. - Presently BP is 150/65. - Continue to hold ARB and CCB until not NPO (3) COPD (chronic obstructive pulmonary disease): No respiratory concerns on 01/31. Not on home inhalers. - DuoNebs PRN (4) Muscular dystrophy: On phenytoin at home. - Hold for now (5) GERD (gastroesophageal reflux disease): No GERD at present. - Hold H2 and PPI until not NPO (6) Prediabetes: - Hold metformin. - Sliding scale insulin (7) History of CVA (cerebrovascular accident): Hold Plavix in setting of possible need for surgery. - Restart as able (8) Gastroparesis: On metoclopramide at home - Holding until not NPO (9) DVT prophylaxis: SCDs - Holding heparin for possible surgery Subjective Feeling some better after NG tube. No passing of flatus yet. Still with abdominal pain. Review of Systems Review of Systems: All systems reviewed & are unremarkable except as noted in HPI & below Physical Exam Constitutional: WD/WN, vitals as above Eyes: EOM intact bilaterally; no conjunctival abnormality ENMT: external ear and nose normal, oropharynx normal Nose: + foreign body in naris (NG tube in left naris; draining bilious material) Neck: trachea midline, no thyromegaly normal visual inspection Respiratory: normal respiratory effort, lungs clear to auscultation no respiratory distress Cardiovascular: RRR, no murmur, no edema Gastrointestinal (Abdomen): Inspection/Auscultation: abdomen normal to inspection; abdomen not distended Musculoskeletal: no cyanosis or clubbing, extremities motor strength 5/5 Skin: no rashes, warm and dry Neurologic: moves all extremities and awake Psychiatric: Orientation: alert, oriented to person and cooperative Results & Data Vital Signs (Past 12 Hours) Vital Signs Temp Pulse Pulse Resp BP Pulse Ox 01/31/19 10:46 36.4 C L 79 20 151/66 H 95 01/31/19 07:45 82 01/31/19 07:29 36.7 C 76 16 138/66 92 01/31/19 03:28 36.8 C 70 20 157/68 H 90 PG Care Time/CCT Total # of Minutes Spent Total Time Spent with Patient: Total time spent is greater than 50% in coordination of care (as documented) at patient's floor/unit and/or counseling patient:
--- NOTE | 2019-01-31 15:21 | Fluoroscopy Report ---
SMALL BOWEL FOLLOW-THROUGH CLINICAL HISTORY: Small bowel obstruction. COMPARISON STUDY: Abdominal CT dated 01/30/2019. TECHNIQUE: An abdominal senior applications developer radiograph was performed. The patient consumed thin barium and a small follow-through was performed. Overhead radiographs were obtained. FINDINGS: The abdominal senior applications developer radiograph shows no radiographic evidence of high-grade bowel obstruction. An ent wilder tube projects over the stomach. There is moderate colonic fecal retention. No evidence of intrap eritoneal free air is seen. There is advanced atherosclerotic calcification of the abdominal aorta an d iliac arteries. A surgical clip is noted in the left hemipelvis. The skeletal structures are osteop enic. The bony structures appear intact. 5 additional abdominal radiographs were obtained for a small bowel follow-through. On the small bowel follow-through, there is delayed transit time with contrast identified in the colon at 3 hours and 1 0 minutes. The proximal small bowel loops are distended, measuring up to 4.5 cm. The mucosal pattern appears normal. There is no evidence of stricture or mass. The distal/terminal ileum are normal as vi sualized. IMPRESSION: There is delayed transit time and dilatation of the proximal small bowel indicating low-g rade obstruction. This appears significantly improved from yesterday's CT scan. Electronically signed by: Wilder Vicente M.D. 01/31/2019 3:20 PM
[2019-02-01] MEDS: KETOROLAC TROMETHAMINE 15 MG/ML VIAL IV PRN (03:47)
[2019-02-01 07:05] LABS: Hematocrit (blood only) 36.8 % (37-47); Hemoglobin 12.6 g/dL (12.0-16.0); Mean Corpuscular Hgb Conc 34.2 g/dL (32-36); Mean Corpuscular Volume 94.8 fL (80-100); Mean Platelet Volume 9.3 fL (7.4-10.4); Platelet Count 281 K/uL (130-400); RDW Coefficient of Variation 12.7 % (11.5-14.5); RDW Standard Deviation 43.8 fL (36.4-46.3); Red Blood Count 3.88 M/uL (4.2-5.4); White Blood Count 6.96 K/uL (4.8-10.8)
[2019-02-01 07:38] LABS: BUN Creatinine Ratio 17.7 (10-20); Calcium 9.2 mg/dl (8.5-10.1); Creatinine Clr Calc Pharmacy 111.4 ml/min; Magnesium 1.7 mg/dl (1.8-2.4); Potassium 3.2 mmol/L (3.5-5.1)
[2019-02-01] MEDS: POTASSIUM CHLORIDE 40 MEQ in SODIUM CHLORIDE 0.9% 1000ML 1,000 ML IV SCH ×2 (08:37→20:33)
[2019-02-01] MEDS: MAGNESIUM SULFATE / D5W 1 GM/100 ML BAG IV SCH ×2 (08:39→09:36)
[2019-02-01] MEDS: LACTATED RINGER'S 1,000 ML IV SCH (08:41)
[2019-02-01] MEDS ORDERED: HydrALAZINE HCL 20 MG/ML VIAL IV PRN (09:01)
[2019-02-01] MEDS: FLUTICASONE PROPIONATE NA SPR 16 GM BTL SCH (09:36)
[2019-02-01] MEDS ORDERED: CHLORASEPTIC 1.4% SOLN 180 ML BTL MT PRN (10:10)
[2019-02-01] MEDS ORDERED: CHLORASEPTIC 1.4% SOLN 180 ML BTL MT ONE (10:30)
--- NOTE | 2019-02-01 11:46 | Surgery Progress Note ---
Date of Service February 01, 2019 Assessment & Plan (1) Small bowel obstruction: s/p MARVA 5 yrs ago. SBO appears to be resolving. Will d/c ng tube and start clear liquids. Increase activity. Present on Admission?: Yes Subjective SBFT yesterday showed improvement of obstruction with delayed transit but flow into colon. She is feeling better this am, passing flatus, hungry, no abdominal pain or nausea/ vomiting. Worst discomfort is with ng tube. Physical Exam Respiratory: normal respiratory effort, lungs clear to auscultation Cardiovascular: RRR, no murmur, no edema Gastrointestinal (Abdomen): normal bowel sounds, soft, nontender, no hepatosplenomegaly Results & Data Vital Signs (Past 12 Hours) Vital Signs Temp Pulse Resp BP Pulse Ox 02/01/19 10:55 36.7 C 76 18 153/85 H 94 02/01/19 07:11 36.8 C 86 19 180/87 H 93 02/01/19 03:43 36.9 C 76 20 175/81 H 92 Diagnostic Findings SBFT: low grade obstruction with delayed transit but flow into colon
--- NOTE | 2019-02-01 12:37 | Hospitalist Progress Note ---
Date of Service February 01, 2019 Assessment & Plan (1) Small bowel obstruction: High grade SBO seen on CT a/p on 01/30. S/p prior surgeries with most recent being lysis of adhesions with Dr. Crenshaw ~5 years ago. - NG tube initially; discontinued on 02/01. - Small bowel imaging improved on 01/31. - Clears started on 02/01 (2) HTN (hypertension): Was briefly hypotensive in the ED down to 80/50. Her BP med was held, and she became hypertensive. - Presently BP is 150/85. - Restarted ARB and CCB on 02/02. (3) COPD (chronic obstructive pulmonary disease): No respiratory concerns on 01/31. Not on home inhalers. - DuoNebs PRN (4) Muscular dystrophy: On phenytoin at home. - Restarted on 02/01 (5) GERD (gastroesophageal reflux disease): No GERD at present. - Restarted on 02/01 (6) Prediabetes: - Hold metformin. - Sliding scale insulin (7) History of CVA (cerebrovascular accident): Held Plavix in setting of possible need for surgery. - Restarted on 02/02 (8) Gastroparesis: On metoclopramide at home - Restarted on 02/01 (9) DVT prophylaxis: SCDs - Low DVT risk per admission calculator Subjective Feeling better. No abdominal pain. Passing flatus. Review of Systems Review of Systems: All systems reviewed & are unremarkable except as noted in HPI & below Physical Exam Constitutional: WD/WN, vitals as above Eyes: EOM intact bilaterally; no conjunctival abnormality ENMT: external ear and nose normal, oropharynx normal Nose: + foreign body in naris (NG tube in left naris; draining bilious material) Neck: trachea midline, no thyromegaly normal visual inspection Respiratory: normal respiratory effort, lungs clear to auscultation no respiratory distress Cardiovascular: RRR, no murmur, no edema Gastrointestinal (Abdomen): Inspection/Auscultation: abdomen normal to inspection; abdomen not distended Musculoskeletal: no cyanosis or clubbing, extremities motor strength 5/5 Skin: no rashes, warm and dry Neurologic: moves all extremities and awake Psychiatric: Orientation: alert, oriented to person and cooperative Results & Data Vital Signs (Past 12 Hours) Vital Signs Temp Pulse Pulse Resp BP Pulse Ox 02/01/19 10:55 36.7 C 76 18 153/85 H 94 02/01/19 07:45 82 02/01/19 07:11 36.8 C 86 19 180/87 H 93 02/01/19 03:43 36.9 C 76 20 175/81 H 92 PG Care Time/CCT Total # of Minutes Spent Total Time Spent with Patient: Total time spent is greater than 50% in coordination of care (as documented) at patient's floor/unit and/or counseling patient:
[2019-02-01] MEDS: PHENYTOIN SODIUM ER 100 MG CAP PO SCH (18:10)
[2019-02-01] MEDS ORDERED: ACETAMINOPHEN 325 MG TAB PO PRN (18:40)
[2019-02-01] MEDS ORDERED: METOCLOPRAMIDE HCL 10 MG TABLET PO SCH (21:00)
[2019-02-01] MEDS ORDERED: PANTOprazole 40 MG TAB PO SCH (21:00)
[2019-02-01] MEDS ORDERED: OLMESARTAN MEDOXOMIL 40 MG TAB PO SCH (21:00)
[2019-02-02 07:36] LABS: BUN Creatinine Ratio 10.2 (10-20); Calcium 8.6 mg/dl (8.5-10.1); Est GFR (African American) 119.3; Magnesium 2.1 mg/dl (1.8-2.4); Potassium 3.6 mmol/L (3.5-5.1)
[2019-02-02] MEDS: FLUTICASONE PROPIONATE NA SPR 16 GM BTL SCH (08:38)
[2019-02-02] MEDS: PHENYTOIN SODIUM ER 100 MG CAP PO SCH ×2 (08:38→17:01)
[2019-02-02] MEDS ORDERED: CLOPIDOGREL BISULFATE 75 MG TAB PO SCH (09:00)
[2019-02-02] MEDS ORDERED: dilTIAZem ER 120 MG CAPCR PO SCH (09:00)
[2019-02-02] MEDS ORDERED: DOCUSATE SODIUM 100 MG CAP PO ONE (10:37)
--- NOTE | 2019-02-02 10:37 | Surgery Progress Note ---
Date of Service February 02, 2019 Assessment & Plan (1) Small bowel obstruction: s/p MARVA 5 yrs ago. SBO appears to be resolving. Will advance to low fiber diet. If tolerates x 2 meals, OK to discharge. She would prefer to try and go home tonight if possible. No need for surgical f/u unless she has questions (pt aware of this). Subjective Tolerated diet. Hungry. Had a bowel movement. No further pain or nausea. Review of Systems Review of Systems: All systems reviewed & are unremarkable except as noted in HPI & below Physical Exam Respiratory: normal respiratory effort, lungs clear to auscultation Cardiovascular: RRR, no murmur, no edema Gastrointestinal (Abdomen): normal bowel sounds, soft, nontender, no hepatosplenomegaly Results & Data Vital Signs (Past 12 Hours) Vital Signs Temp Pulse Pulse Resp BP Pulse Ox 02/02/19 07:45 98 H 02/02/19 07:02 36.7 C 95 H 18 187/99 H 93 02/02/19 04:58 177/102 H 02/02/19 04:01 36.7 C 65 18 180/86 H 96 02/02/19 00:06 37.2 C 74 17 178/86 H 97 02/02/19 00:00 65
--- NOTE | 2019-02-02 15:42 | Discharge Summary ---
Date of Service February 02, 2019 Admission HPI Per Admitting Provider 68-year-old female with history of prior small bowel obstruction in 2013 due to adhesions presents with abdominal pain x2 days, since last night. Found to have high-grade small bowel obstruction on abdominal CT in the ED. Abdominal pain is sharp in nature and constant. Associated with nausea. Denies vomiting, diarrhea/constipation. Patient had a normal bowel movement this morning and last passed flatus yesterday. Last meal was this morning, had toast for breakfast. Denies any fever/chills, chest pain, shortness of breath, dysuria, hematuria. Of note: Patient had cataract surgery recently and thus both eyes red from that. Past medical history: small bowel obstruction in 2013 due to adhesions, hypertension, COPD, stroke 20 years ago, prediabetes, muscular dystrophy, gastroparesis, GERD Past surgical history: Hysterectomy and appendectomy, exploratory laparotomy in 2013 for SBO Social history: Smoked for 40 years less than one pack per day quit 5 years ago Principal Diagnosis Small bowel obstruction Discharge Exam Constitutional WD/WN, vitals as above Eyes EOM intact bilaterally; no conjunctival abnormality ENMT external ear and nose normal, oropharynx normal Neck trachea midline, no thyromegaly normal visual inspection Respiratory normal respiratory effort, lungs clear to auscultation no respiratory distress Cardiovascular RRR, no murmur, no edema Gastrointestinal (Abdomen) Inspection/Auscultation: abdomen normal to inspection; abdomen not distended Musculoskeletal no cyanosis or clubbing, extremities motor strength 5/5 Skin no rashes, warm and dry Neurologic moves all extremities and awake Psychiatric Orientation: alert, oriented to person and cooperative Discharge Data Allergies Allergy/AdvReac Type Severity Reaction Status Date / Time Iodinated Contrast- Oral and Allergy Unknown . Verified 01/30/19 17:27 IV Dye Penicillins Allergy Unknown Verified 01/30/19 17:27 Sulfa (Sulfonamide Allergy Unknown . Verified 01/30/19 17:27 Antibiotics) Tetracyclines Allergy Unknown Verified 01/30/19 17:27 Consultations 01/30/19 19:43 ED Decision to Admit Stat 01/30/19 21:15 Consult General Surgery Routine Ordered Studies 01/30/19 17:06 CT abd pelvis wo con Stat 01/31/19 11:00 FL small bowel study Routine Hospital Course (1) Small bowel obstruction: High grade SBO seen on CT a/p on 01/30. S/p prior surgeries with most recent being lysis of adhesions with Dr. Crenshaw ~5 years ago. - NG tube initially; discontinued on 02/01. - Small bowel imaging improved on 01/31. Passing flatus and BM by 02/01. - Advanced diet and tolerated well. Discharged. No need for surgical follow up unless recurs. (2) HTN (hypertension): Was briefly hypotensive in the ED down to 80/50. Her BP med was held, and she became hypertensive. - Presently BP is 150/85. - Restarted ARB and CCB on 02/02. - BP was normal after that. PCP follow up. (3) COPD (chronic obstructive pulmonary disease): No respiratory concerns on 01/31. Not on home inhalers. - DuoNebs PRN (4) Muscular dystrophy: On phenytoin at home. - Restarted on 02/01 (5) GERD (gastroesophageal reflux disease): No GERD at present. - Restarted on 02/01 (6) Prediabetes: - Held metformin. - Sliding scale insulin (7) History of CVA (cerebrovascular accident): Held Plavix in setting of possible need for surgery. - Restarted on 02/02 (8) Gastroparesis: On metoclopramide at home - Restarted on 02/01 (9) DVT prophylaxis: SCDs - Low DVT risk per admission calculator Total Time Total Time Spent Total Time Spent (In Minutes): 35 Discharge Plan Discharge Items Patient Disposition: Home - Self-Care Reason For Visit: SBO Discharge Diagnosis: Small bowel obstruction Discharge Goals: Decrease discomfort and Improve function Activity: Resume your previous activity Non-emergency contact: Primary Care Provider and Surgeon Call non-emergency contact if: your symptoms worsen and your pain is not controlled Follow-up/Referrals: Don Winter MD [Primary Care Provider] - Diet: Low Fiber Addtl Provider Instructions: Continue eating a low fiber diet for 2-[address] Winter in 1-2 weeks for follow up. If your pain returns, you will need to follow up with a surgeon (such as Dr. Crenshaw). Prescriptions: Continued ranitidine HCl 300 mg Tablet 300 mg PO QAM Qty: 0 RF: 0 diltiazem HCl 240 mg Capsule,Extended Release 24 Hr 240 mg PO QAM Qty: 0 RF: 0 clopidogrel 75 mg Tablet 75 mg PO QAM Qty: 0 RF: 0 esomeprazole magnesium 40 mg Capsule,Delayed Release(Dr/Ec) 40 mg PO PM Qty: 0 RF: 0 mometasone 50 mcg/actuation [place],Non-Aerosol 1 spray intranasal DAILY Qty: 0 RF: 0 metoclopramide HCl 10 mg Tablet 10 mg PO PM Qty: 0 RF: 0 olmesartan 40 mg Tablet 40 mg PO PM Qty: 0 RF: 0 metformin 500 mg tablet 500 mg PO BID RF: 0 acetaminophen [Tylenol Extra Strength] 500 mg Tablet 500 mg PO Q6H PRN (Reason: Pain) RF: 0 phenytoin sodium extended 100 mg capsule 100 mg PO BIDM RF: 0 Stand-Alone Forms: [facility] Discharge Orders: Discharge Order (Routine); Ordered 02/02/19 Ordered By: Christiano Guzmán Admission Data Admit Date/Time: 01/30/19 20:28 Attending Provider: Christiano Guzmán Admit Provider: Alexander Dsouza Primary Care Provider: Don Winter Other Providers: Salvador Alexander ; Christiano Guzmán Service: Telemetry Other Interventions: Discharge Summary Assessment (RN) Last Done: 02/02/19 15:40
== END 2019-02-02 17:18 | disposition home or self-care (01) | DRG 389 ==
LOC: ED 16:43 → 2E 20:28 → SUATTDRO 20:28 → 2E 20:46

== ENCOUNTER 2023-03-30 15:24 | Observation (INO) ==
[2023-03-30 16:31] LABS: Basophils # (auto) 0.02 K/uL (0.00-0.20); Basophils % (auto) 0.2 %; Eosinophils # (auto) 0.03 K/uL (0.00-0.50); Eosinophils % (auto) 0.3 %; Hematocrit (blood only) 39.4 % (37.0-47.0); Hemoglobin 13.9 g/dl (12.0-16.0); Immature Granulocytes # (auto) 0.07 K/uL (0.01-0.20); Immature Granulocytes % (auto) 0.8 %; Lymphocytes # (auto) 1.09 K/uL (1.20-3.40); Lymphocytes % (auto) 12.5 %; Mean Corpuscular Hemoglobin 30.3 pg (25.0-34.0); Mean Corpuscular Hgb Conc 35.3 g/dL (32.0-36.0); Mean Platelet Volume 8.9 fL (9.4-12.4); Monocytes # (auto) 0.99 K/uL (0.11-0.59); Monocytes % (auto) 11.4 %; Neutrophils % (auto) 74.8 %; Platelet Count 384 K/uL (130-400); RDW Coefficient of Variation 12.7 % (11.5-14.5); RDW Standard Deviation 39.8 fL (36.4-46.3); Red Blood Count 4.58 M/uL (4.20-5.40)
--- NOTE | 2023-03-30 16:38 | Emergency Department Note ---
Impression & Plan Hyponatremia, Hypertensive urgency, Hypomagnesemia, Hypokalemia ED Provider Note NAME: YOKO MATTA AGE: 72 SEX: F ARRIVES VIA: Walk-In INFORMANT: Patient ED PROVIDER(S): Barry Leon MD CHIEF COMPLAINT: Shortness of breath, hypertension PLAN: Disposition: Admit MEDICAL DECISION MAKING: The patient is a pleasant 72-year-old woman with a past medical history of carcinoid syndrome, IBS, LVH, diastolic dysfunction, JG, who presents to the emergency department for symptoms of shortness of breath, palpitations generalized weakness with sensation of burning in her chest since this morning. Patient was treated for COVID-19 two weeks ago and recovered. She was treated with Paxlovid. She denies any recent fevers, cough, congestion, GI or sympto ms since. Of note, the patient did arrive to emergency department during time of high volume, acuity and prolonged emergency department waiting times. Critical pathways initiated from triage. On my evaluation the patient is anxious appearing but no acute distress, afebrile with heart in the 100s and blood pressure 180s/90s and vital signs otherwise stable. O2 saturation is 95% on room air. She appears clinically dry. Lungs are clear. EKG demonstrates right ventricular conduction delay similar to prior and no overt acute ischemia. Chest x-ray negative for acute cardiopulmonary process. WBC, H/H and platelets within normal limits. Chemistry without metabolic acidosis. Potassium 3.3 and sodium 125 with chloride 91 newly low. Magnesium 1.5 with repletion provided. LFTs unremarkable. High-sensitivity troponin 11.5, within normal notes. BNP within normal limits. TSH within normal limits. Treatment initiated with IV fluid hydration, magnesium and potassium repletion. IV labetalol also ordered to be administered if blood pressure did not improve after hydration. The patient agrees with admission for further evaluation. [place] was d/[place], [facility] [place] will evaluate the patient for admission. Triage Nursing notes reviewed and agree them. Prior/outside medical records reviewed Vital Signs: reviewed Differential diagnosis: Reactive airway disease, pneumonia, pneumothorax, COPD, CHF, infections, cardiac ischemia, pulmonary embolism, musculoskeletal, gastrointestinal, as well as oth er pathologies. ER treatment provided: See below. Diagnostics interpreted by me: ECG: Sinus tachycardia, 103 bpm, no ectopy, right ventricular conduction delay, no overt ST elevation or depression, QTc 45, QRS 92. Cardiac Monitoring: An order for continuous cardiac monitoring was placed and demonstrated sinus tachycardia, 103 bpm, no ectopy. Laboratory studies: See below Imaging studies: See below Consultation(s): Case was d/[place]. Sanchez, [facility] [place] who will evaluate the patient for admission. HPI: The patient is a pleasant 72-year-old woman with a past medical history of carcinoid syndrome, IBS, LVH, diastolic dysfunction, JG, who presents to the emergency department for symptoms of shortness of breath, palpitations generalized weakness with sensation of burning in her chest since this morning. Patient was treated for COVID-19 two weeks ago and recovered. She was treated with Paxlovid. She denies any recent fevers, cough, congestion, GI or symptoms since. ROS: See above HPI for pertinent positives & negatives. A total of 10 systems reviewed and were otherwise negative. VITALS:See Below PHYSICAL EXAMINATION: GENERAL: Awake, alert, mildly anxious but well-appearing, in no distress HENT: Normocephalic, atraumatic. Oropharynx with dry mucous membranes and otherwise unremarkable. EYES: Normal conjunctiva. Sclera non-icteric. NECK: Supple. No nuchal rigidity. FROM. No JVD. RESPIRATORY: Clear to auscultation. CARDIAC: Tachycardic rate, normal rhythm. Extremities warm and well perfused. Pulses equal. ABDOMEN: Soft, non-distended. No tenderness to palpation. No rebound or guarding. No masses. RECTAL: Deferred. MUSCULOSKELETAL: Chest examination reveals no tenderness. The back is symmetrical on inspection without obvious abnormality. There is no CVA tenderness to palpation. No joint edema. LOWER EXTREMITIES: Calves are equal size bilaterally and non-tender. No edema. No discoloration. NEURO: Normal sensorium. No sensory or motor deficits noted. SKIN: No rash or jaundice noted. Barry Leon MD Past Med/Surg History Medical History Adrenal adenoma Antibiotic-induced yeast infection PRONE TO YEAST INFECTIONS WITH ANTIBIOTIC USE Carcinoid tumor of colon COPD (chronic obstructive pulmonary disease) Diabetes Family history of reaction to anesthesia SISTER, N&V Gastroparesis DENIES GERD (gastroesophageal reflux disease) History of claustrophobia MILD History of colon polyps History of CVA (cerebrovascular accident) HX STROKE AGE 49 / HX UNCONTROLLED BP AFTER STROKE , NOW RESOLVED History of skin cancer HTN (hypertension) Hypercholesterolemia DENIES Langerhans cell histiocytosis ? Lung nodules MONITORS Mild obstructive sleep apnea CPAP Muscular dystrophy Neuroendocrine tumor DX 1.5 YR AGO / REASON FOR UPCOMING COLONOSCOPY TO F/U Osteoporosis Seasonal allergies Small bowel obstruction (04/10/14) FROM SCAR TISSUE , HX SX INTERVENTION Surgical History H/O: hysterectomy TOTAL History of lung biopsy History of Mohs micrographic surgery for skin cancer History of surgery REMOTE HX FOR REMOVAL OF SKIN CA Hx of exploratory laparotomy HX BOWEL OBSTRUCTION S/P appendectomy S/P thoracotomy DENIES , REPORTS HX LUNG BIOPSY Family History Father Myocardial infarction Hypertension Mother Congestive heart failure Hypertension Grandfather (Paternal) Myocardial infarction Grandfather (Maternal) Myocardial infarction Grandmother Colorectal cancer Other Atrial fibrillation Family history of diabetes mellitus Social History Smoking Status: Never smoker Do You Dip or Chew Tobacco: No; Hx Alcohol Use: Yes Alcohol type: wine Hx Substance Use: No Preferred Language: Tuvaluan Communication Ability: Effective Meat Carrier Required: No Beliefs That Will Affect Care: None marital status: Current Living Situation: Spouse current occupational status: retired Feels Safe at Home: Yes Seatbelt Use: always Sunscreen Use: Yes Assistive Devices: CPAP and Glasses Allergies Allergies Allergy/AdvReac Type Severity Reaction Status Date / Time Iodinated Contrast Media Allergy Unknown Hives Verified 03/30/23 19:12 Penicillins Allergy Unknown REMOTE HX, Verified 03/30/23 19:12 PT CAN'T REMEMBER Sulfa (Sulfonamide Allergy Unknown FACE Verified 03/30/23 19:12 Antibiotics) SWELLS UP Tetracyclines Allergy Unknown ? ITCH ALL Verified 03/30/23 19:12 OVER, PT NOT SURE Amoxicillin TABS Allergy Unknown HX Uncoded 03/30/23 19:12 ITCHING/HAVE USED SINCE AND DID NOT HAVE PROBLEM Avelox TABS Allergy Unknown itching Uncoded 03/30/23 19:12 Home Meds Home Medications Medication Instructions Recorded Confirmed acetaminophen 500 mg tablet 500 mg PO Q6H PRN Pain 01/30/19 02/21/23 (Tylenol Extra Strength) cetirizine 10 mg capsule (Zyrtec) 10 mg PO QPM 09/10/19 02/21/23 fluticasone propionate 50 2 spray intranasal BID 04/13/22 02/21/23 mcg/actuation nasal spray,suspension (Flonase Allergy Relief) hydralazine 25 mg tablet 25 mg PO TID 07/26/22 02/21/23 clopidogrel 75 mg tablet 75 mg PO QAM 09/12/22 02/21/23 indapamide 1.25 mg tablet 1.25 mg PO QAM 09/12/22 02/21/23 olmesartan 40 mg tablet 40 mg PO QAM 09/12/22 02/21/23 metoclopramide HCl 10 mg tablet 10 mg PO TID 10/04/22 02/21/23 cholecalciferol (vitamin D3) 125 125 mcg PO DAILY 02/07/23 02/21/23 mcg (5,000 unit) capsule denosumab 60 mg/mL subcutaneous mg subcut Q6MO 02/07/23 02/21/23 syringe (Prolia) Previous Rx's Medication Instructions Recorded OneTouch Delica Lancets 33 gauge #400 ea 06/10/21 (lancets) blood sugar diagnostic (Blood #400 ea 06/10/21 Glucose Test strips) albuterol sulfate 90 mcg/actuation 2 puff inhalation Q4H PRN 10/25/22 aerosol inhaler (Ventolin HFA) Shortness Of Breath #3 Inhalers metoprolol succinate 100 mg 100 mg PO DAILY #30 tabs 10/25/22 tablet,extended release 24 hr tiotropium bromide 2.5 2 puff inhalation QAM #12 grams 12/18/22 mcg/actuation mist for inhalation (Spiriva Respimat) azithromycin 250 mg tablet See Rx Instructions PO .COMPLEX #6 02/07/23 tabs ipratropium bromide 21 mcg (0.03 See Rx Instructions .Route 02/07/23 %) nasal spray .COMPLEX #30 mL metformin 500 mg tablet 1,000 mg PO BID #360 tabs 03/07/23 esomeprazole magnesium 40 mg 40 mg PO QPM #90 caps 03/12/23 capsule,delayed release Results & Data (ED) Vital Signs Vital Signs - 24 hr 03/30/23 15:51 03/30/23 16:26 03/30/23 16:26 Temperature 36.4 C L 36.6 C Temperature Source Temporal Artery Scan Oral Pulse Rate 101 H Pulse Rate [Bilateral] 95 H Pulse Rhythm Regular Pulse Strength Normal Respiratory Rate 20 29 H Respiratory Effort / Characteristics Non-Labored Accessory Muscle Use Respiratory Depth Normal Respiratory Pattern Regular Blood Pressure 173/68 H Blood Pressure [Right Arm] 184/105 H Blood Pressure Mean 103 Blood Pressure Mean [Right Arm] 131 Pulse Oximetry 96 97 97 Oxygen Delivery Method Room Air Room Air Room Air Sepsis Recent Fever Within 48 Hours No Sepsis New/Unexplained Change in Mental Status No Sepsis Action Taken by Nursing No Action Required 03/30/23 16:26 03/30/23 16:27 03/30/23 17:54 Temperature Temperature Source Pulse Rate 94 H 100 H Pulse Rate [Bilateral] 88 Pulse Rhythm Pulse Strength Respiratory Rate 29 H 18 Respiratory Effort / Characteristics Respiratory Depth Respiratory Pattern Blood Pressure Blood Pressure [Right Arm] 182/91 H Blood Pressure Mean Blood Pressure Mean [Right Arm] 121 Pulse Oximetry 97 95 Oxygen Delivery Method Room Air Room Air Sepsis Recent Fever Within 48 Hours Sepsis New/Unexplained Change in Mental Status Sepsis Action Taken by Nursing 03/30/23 19:00 03/30/23 19:10 03/30/23 19:16 Temperature Temperature Source Pulse Rate 92 H 93 H 85 Pulse Rate [Bilateral] Pulse Rhythm Pulse Strength Respiratory Rate 27 H 28 H 29 H Respiratory Effort / Characteristics Respiratory Depth Respiratory Pattern Blood Pressure 177/85 H 172/83 H Blood Pressure [Right Arm] Blood Pressure Mean 115 112 Blood Pressure Mean [Right Arm] Pulse Oximetry 90 94 Oxygen Delivery Method Room Air Room Air Sepsis Recent Fever Within 48 Hours Sepsis New/Unexplained Change in Mental Status Sepsis Action Taken by Nursing 03/30/23 19:25 03/30/23 19:30 Temperature Temperature Source Pulse Rate 82 77 Pulse Rate [Bilateral] Pulse Rhythm Pulse Strength Respiratory Rate 18 Respiratory Effort / Characteristics Respiratory Depth Respiratory Pattern Blood Pressure 172/83 H 165/88 H Blood Pressure [Right Arm] Blood Pressure Mean 113 Blood Pressure Mean [Right Arm] Pulse Oximetry Oxygen Delivery Method Sepsis Recent Fever Within 48 Hours Sepsis New/Unexplained Change in Mental Status Sepsis Action Taken by Nursing Laboratory Data Attestation: I reviewed the patient's lab results. 03/30/23 Unknown 03/30/23 Unknown Lab Results 03/30/23 03/30/23 03/30/23 Range/Units 16:17 16:17 17:39 Osmolality 263 L (280-300) mOsm/kg B-Natriuretic Peptide 90 (0-100) pg/ml Urine Color Yellow Urine Appearance Cloudy A (Clear) Urine pH 7.5 (4.5-7.5) Ur Specific [place] 1.011 (1.000-1.030) Urine Protein Negative (Negative) Urine Glucose (UA) Negative (Negative) Urine Ketones 1+ H (Negative) Urine Blood Negative (Negative) Urine Nitrite Positive A (Negative) Urine Bilirubin Negative (Negative) Urine Urobilinogen Negative (Negative) Ur Leukocyte Esterase 3+ H (Negative) Urine WBC (Auto) >30 H (0-5) /hpf Urine RBC (Auto) 0-4 (0-4) /hpf U Hyaline Cast (Auto) 1-5 (0-5) /lpf U Epithel Cells (Auto) 0-5 (0-5) /lpf Urine Bacteria (Auto) 2+ H (Negative) Urine Osmolality (500-800) mOsm/kg Ur Random Sodium mmol/L 03/30/23 03/30/23 Range/Units 17:39 17:39 Osmolality (280-300) mOsm/kg B-Natriuretic Peptide (0-100) pg/ml Urine Color Urine Appearance (Clear) Urine pH (4.5-7.5) Ur Specific [place] (1.000-1.030) Urine Protein (Negative) Urine Glucose (UA) (Negative) Urine Ketones (Negative) Urine Blood (Negative) Urine Nitrite (Negative) Urine Bilirubin (Negative) Urine Urobilinogen (Negative) Ur Leukocyte Esterase (Negative) Urine WBC (Auto) (0-5) /hpf Urine RBC (Auto) (0-4) /hpf U Hyaline Cast (Auto) (0-5) /lpf U Epithel Cells (Auto) (0-5) /lpf Urine Bacteria (Auto) (Negative) Urine Osmolality 361 L (500-800) mOsm/kg Ur Random Sodium 77 mmol/L Administered Medications Discontinued Medications Sodium Chloride (Nss) 500 mls @ 999 mls/hr IV .Q31M ONE Stop: 03/30/23 17:10 Last Infusion: 03/30/23 21:03 Dose: 0 mls/hr Documented By: Admin: 03/30/23 18:27 Dose: 999 mls/hr Documented By: TORSTEN Magnesium Sulfate/Dextrose (Magnesium Sulfate / D5w) 1 gm in 100 mls @ 100 mls/hr IV Q1H DOREEN Stop: 03/30/23 19:47 Last Infusion: 03/30/23 21:03 Dose: 0 mls/hr Documented By: Admin: 03/30/23 19:59 Dose: 100 mls/hr Documented By: Infusion: 03/30/23 19:58 Dose: 0 mls/hr Documented By: Admin: 03/30/23 18:27 Dose: 100 mls/hr Documented By: TORSTEN Potassium Chloride (K Gary / Wtr) 10 meq in 100 mls @ 100 mls/hr IV Q1H DOREEN Stop: 03/30/23 20:14 Last Infusion: 03/30/23 21:03 Dose: 0 mls/hr Documented By: Admin: 03/30/23 19:58 Dose: 100 mls/hr Documented By: Infusion: 03/30/23 19:58 Dose: 0 mls/hr Documented By: Admin: 03/30/23 18:27 Dose: 100 mls/hr Documented By: TORSTEN Labetalol HCl (Labetalol Hcl Iv 5 Mg/Ml 20ml) 10 mg IV NOW STA Stop: 03/30/23 18:28 Last Admin: 03/30/23 19:25 Dose: 10 mg Documented By: JODI Co-signed By: HAN Imaging Data Radiologist's Impression: Chest X-Ray 03/30/23 15:54 XR chest 1V portable CLINICAL HISTORY: Chest pain, nonspecific TECHNIQUE: Single frontal radiograph of the chest was obtained. Comparison: Comparison is made to chest radiograph 03/01/2023 FINDINGS: No lines and tubes are seen. Cardiomegaly is noted. The aortic arch is calcified. The lungs are clear. No evidence of pleural effusion or pneumothorax. IMPRESSION: No acute chest disease. Cardiomegaly is noted. ACT 112: Negative or not required by law. Electronically signed by: Gagandeep Fernandez M.D. 03/30/2023 5:07 PM Discharge Plan Visit Data Chief Complaint: Hypertension Stated Complaint: DIFF BREATHING, HIGH BP, HIGH PULSE ED Provider: Barry Leon Discharge Problem: Hyponatremia, Hypertensive urgency, Hypomagnesemia, Hypokalemia Discharge Instructions Interventions: ED Discharge Assessment Last Done: 03/30/23 21:55
[2023-03-30] MEDS ORDERED: SODIUM CHLORIDE 0.9% 500 ML IV ONE (16:40)
[2023-03-30 16:51] LABS: Albumin Globulin Ratio 1.5 (0.9-2); Albumin Level 4.5 gm/dl (3.4-5.0); BUN Creatinine Ratio 10.8 (10-20); Bilirubin,Total 0.5 mg/dl (0.2-1.0); Calcium 9.6 mg/dl (8.6-10.3); Creatinine Clr Calc Pharmacy 51.2 ml/min; Est GFR (African American) 71.2 ml/min; Est GFR (Non-African American) 61.4 ml/min; Potassium 3.3 mmol/L (3.5-5.1); Total Protein 7.5 gm/dl (6.0-8.3)
[2023-03-30 16:56] LABS: Troponin I High Sensitivity 11.5 pg/ml (0-14)
--- NOTE | 2023-03-30 16:58 | Electrocardiogram Report ---
Test Reason : Blood Pressure : / mmHG Vent. Rate : 103 BPM Atrial Rate : 103 BPM P-R Int : 170 ms QRS Dur : 092 ms QT Int : 378 ms P-R-T Axes : 061 042 017 degrees QTc Int : 495 ms Poor data quality, interpretation may be adversely affected Sinus tachycardia Possible Left atrial enlargement RSR' or QR pattern in V1 suggests right ventricular conduction delay Inferior infarct (cited on or before 12-APR-2014) Cannot rule out Anterior infarct (cited on or before 12-APR-2014) Abnormal ECG When compared with ECG of 30-JAN-2019 16:58, Premature atrial complexes are no longer Present Confirmed by Agus Garcia ([id number]) on 03/30/2023 4:58:09 PM Referred By: Confirmed By:Agus Garcia
[2023-03-30 17:03] LABS: Partial Thromboplastin Ratio 1.1; Partial Thromboplastin Time 30.9 Seconds (21.0-31.0); Prothrombin Time 11.4 Seconds (9.0-12.0)
--- NOTE | 2023-03-30 17:09 | XRay Report ---
XR chest 1V portable CLINICAL HISTORY: Chest pain, nonspecific TECHNIQUE: Single frontal radiograph of the chest was obtained. Comparison: Comparison is made to chest radiograph 03/01/2023 FINDINGS: No lines and tubes are seen. Cardiomegaly is noted. The aortic arch is calcified. The lungs are clear . No evidence of pleural effusion or pneumothorax. IMPRESSION: No acute chest disease. Cardiomegaly is noted. ACT 112: Negative or not required by law. Electronically signed by: Gagandeep Fernandez M.D. 03/30/2023 5:07 PM
[2023-03-30 17:19] LABS: Magnesium 1.5 mg/dl (1.7-2.4)
[2023-03-30 17:25] LABS: Phosphorus 2.6 mg/dl (2.5-4.9)
[2023-03-30] MEDS: POTASSIUM CHLORIDE / WTR 10 MEQ/100 ML PLCT IV SCH ×2 (18:27→19:58)
[2023-03-30] MEDS ORDERED: LABETALOL HCL IV 5 MG/ML 20ML IV STA (18:27)
[2023-03-30] MEDS: MAGNESIUM SULFATE / D5W 1 GM/100 ML BAG IV SCH ×2 (18:27→19:59)
--- NOTE | 2023-03-30 19:11 | History & Physical Report ---
Date of Service March 30, 2023 Assessment & Plan (1) Hyponatremia: Plan: Stop indapamide. Possible SIADH in setting of recent COVID infection - however will stop indapamide initially and treat with normal saline to see if this is the cause. Urine Na and osm Normal saline 500ml bolus given in the ER Repeat Na in AM (2) Hypertensive urgency: Plan: Does not feel like her usual carcinoid syndrome but will test 24 hour metanephrines/catecholamines and 5HIAA given lkack of alternative explanations for her sudden onset of symptoms Labetalol given in the ER and BP now better controlled. Will continue her usual anti-hypertensives with the exception of indapamide as above. Hydralazine 10mg IV q4h PRN for sBP > 120 (3) Shortness of breath: Plan: No clear reason for her sudden onset of symptoms today although this appears to be improving with electrolyte replacement and BP control. Will defer further investigations unless this is getting worse. ?due to carcinoid syndrome (4) Carcinoid syndrome: Plan: Not currently on treatment for this (5) Obstructive sleep apnea: Plan: CPAP HS (6) Hypomagnesemia: Plan: Mg level 1.5, Mg sulfate 2g IV given in ER, repeat with AM labs (7) Hypokalemia: Plan: K 3.3, KCl 10meq x2 IV, repeat with AM labs Plan VTE Prophylaxis - Lovenox 40mg SQ Diet - regular Disposition - admit to med/tele Admission and Anticipated Discharge Date Admission Date: March 30, 2023 History of Present Illness Chief Complaint: Shortness of breath Primary Care Provider: Becky Tavarez MD Danielle Pulliam is a 72 year old female who presents to the ER with shortness of breath, feeling of body moving fast. She reports sudden onset of symptoms mid morning. In the ER she was noted to have multiple electrolyte abnormalities and hypertensive urgency. Improved since medications given in the ER with blood pressure control and electrolyte replacement and she is mostly asymptomatic at this time. No fever, chills, cough, chest pain. She reports taking all her usual medications this morning and did not miss any anti-hypertensives. This is on a background of 2 weeks ago testing positive for COVID-19. Reportedly had a mild illness with 3 days of fever, sore throat and headache. She was treated with Paxlovid on March 17. Also recently prescribed metoclopramide on March 26 although she reports this is a chronic medication she has taken for years without known side effects. She has a complex history of carcinoid syndrome best summarized in Dr Beverly notes. She is currently not on octreotide. She feels her current symptoms are different to her prior carcinoid which was more characterized by flushing which she did not have today. Allergies Allergy/AdvReac Type Severity Reaction Status Date / Time Iodinated Contrast Media Allergy Unknown Hives Verified 03/30/23 19:12 moxifloxacin [From Avelox] Allergy Unknown itching Verified 03/30/23 22:11 Penicillins Allergy Unknown REMOTE HX, Verified 03/30/23 19:12 PT CAN'T REMEMBER Sulfa (Sulfonamide Allergy Unknown FACE Verified 03/30/23 19:12 Antibiotics) SWELLS UP Tetracyclines Allergy Unknown ? ITCH ALL Verified 03/30/23 19:12 OVER, PT NOT SURE Home Medications Medication Instructions Recorded Confirmed Type acetaminophen 500 mg tablet 500 mg PO Q6H PRN Pain 01/30/19 02/21/23 History (Tylenol Extra Strength) cetirizine 10 mg capsule (Zyrtec) 10 mg PO QPM 09/10/19 02/21/23 History OneTouch Delica Lancets 33 gauge #400 ea 06/10/21 02/21/23 Rx (lancets) blood sugar diagnostic (Blood #400 ea 06/10/21 02/21/23 Rx Glucose Test strips) fluticasone propionate 50 2 spray intranasal BID 04/13/22 02/21/23 History mcg/actuation nasal spray,suspension (Flonase Allergy Relief) hydralazine 25 mg tablet 25 mg PO TID 07/26/22 02/21/23 History clopidogrel 75 mg tablet 75 mg PO QAM 09/12/22 02/21/23 History indapamide 1.25 mg tablet 1.25 mg PO QAM 09/12/22 02/21/23 History olmesartan 40 mg tablet 40 mg PO QAM 09/12/22 02/21/23 History metoclopramide HCl 10 mg tablet 10 mg PO TID 10/04/22 02/21/23 History albuterol sulfate 90 mcg/actuation 2 puff inhalation Q4H PRN 10/25/22 02/21/23 Rx aerosol inhaler (Ventolin HFA) Shortness Of Breath #3 Inhalers metoprolol succinate 100 mg 100 mg PO DAILY #30 tabs 10/25/22 02/21/23 Rx tablet,extended release 24 hr tiotropium bromide 2.5 2 puff inhalation QAM #12 grams 12/18/22 02/21/23 Rx mcg/actuation mist for inhalation (Spiriva Respimat) azithromycin 250 mg tablet See Rx Instructions PO .COMPLEX #6 02/07/23 02/21/23 Rx tabs cholecalciferol (vitamin D3) 125 125 mcg PO DAILY 02/07/23 02/21/23 History mcg (5,000 unit) capsule denosumab 60 mg/mL subcutaneous mg subcut Q6MO 02/07/23 02/21/23 History syringe (Prolia) ipratropium bromide 21 mcg (0.03 See Rx Instructions .Route 02/07/23 02/21/23 Rx %) nasal spray .COMPLEX #30 mL metformin 500 mg tablet 1,000 mg PO BID #360 tabs 03/07/23 Rx esomeprazole magnesium 40 mg 40 mg PO QPM #90 caps 03/12/23 Rx capsule,delayed release Past Med/Surg History Medical History Adrenal adenoma Antibiotic-induced yeast infection PRONE TO YEAST INFECTIONS WITH ANTIBIOTIC USE Carcinoid tumor of colon COPD (chronic obstructive pulmonary disease) Diabetes Family history of reaction to anesthesia SISTER, N&V Gastroparesis DENIES GERD (gastroesophageal reflux disease) History of claustrophobia MILD History of colon polyps History of CVA (cerebrovascular accident) HX STROKE AGE 49 / HX UNCONTROLLED BP AFTER STROKE , NOW RESOLVED History of skin cancer HTN (hypertension) Hypercholesterolemia DENIES Langerhans cell histiocytosis ? Lung nodules MONITORS Mild obstructive sleep apnea CPAP Muscular dystrophy Neuroendocrine tumor DX 1.5 YR AGO / REASON FOR UPCOMING COLONOSCOPY TO F/U Osteoporosis Seasonal allergies Small bowel obstruction (04/10/14) FROM SCAR TISSUE , HX SX INTERVENTION Surgical History H/O: hysterectomy TOTAL History of lung biopsy History of Mohs micrographic surgery for skin cancer History of surgery REMOTE HX FOR REMOVAL OF SKIN CA Hx of exploratory laparotomy HX BOWEL OBSTRUCTION S/P appendectomy S/P thoracotomy DENIES , REPORTS HX LUNG BIOPSY Family History Father Myocardial infarction Hypertension Mother Congestive heart failure Hypertension Grandfather (Paternal) Myocardial infarction Grandfather (Maternal) Myocardial infarction Grandmother Colorectal cancer Other Atrial fibrillation Family history of diabetes mellitus Social History Smoking Status: Never smoker Second Hand Exposure: No; Do You Dip or Chew Tobacco: No; Hx Alcohol Use: Yes Alcohol type: wine Hx Substance Use: No Preferred Language: Kittitian Communication Ability: Effective [employer] Supervisor Required: No Beliefs That Will Affect Care: None marital status: Current Living Situation: Spouse current occupational status: retired Feels Safe at Home: Yes Seatbelt Use: always Sunscreen Use: Yes Assistive Devices: CPAP and Glasses Review of Systems Review of Systems: All systems reviewed & are unremarkable except as noted in HPI & below Physical Exam Constitutional: WD/WN, vitals as above Eyes: PERRL, conjunctivae normal, anicteric sclerae Respiratory: normal respiratory effort, lungs clear to auscultation Cardiovascular: RRR, no murmur, no edema Gastrointestinal (Abdomen): normal bowel sounds, soft, nontender, no hepatosplenomegaly Musculoskeletal: no cyanosis or clubbing, extremities motor strength 5/5 Skin: no rashes, warm and dry Neurologic: moves all extremities and awake; not confused Psychiatric: A+Ox3, euthymic affect Genitourinary: no CVA tenderness Results & Data Results & Data Vital Signs (Past 12 Hours) Vital Signs Temp Pulse Pulse Resp BP BP Pulse Ox 03/30/23 17:54 88 18 182/91 H 95 03/30/23 16:27 100 H 03/30/23 16:26 94 H 29 H 97 03/30/23 16:26 97 03/30/23 16:26 36.6 C 95 H 29 H 184/105 H 97 03/30/23 15:51 36.4 C L 101 H 20 173/68 H 96 O2 Del Method 03/30/23 17:54 Room Air 03/30/23 16:27 03/30/23 16:26 Room Air 03/30/23 16:26 Room Air 03/30/23 16:26 Room Air 03/30/23 15:51 Room Air Laboratory Results Abnormal lab results 03/30/23 03/30/23 03/30/23 Range/Units 16:17 Unknown Unknown MPV 8.9 L (9.4-12.4) fL Lymph # (Auto) 1.09 L (1.20-3.40) K/uL [place] # (Auto) 0.99 H (0.11-0.59) K/uL Sodium 125 L (136-145) mmol/L Potassium 3.3 L (3.5-5.1) mmol/L Chloride 91 L (98-107) mmol/L Glucose 123 H (70-99(Fasting)) mg/dl Osmolality 263 L (280-300) mOsm/kg Magnesium 1.5 L (1.7-2.4) mg/dl Diagnostic Findings XR chest 1V portable CLINICAL HISTORY: Chest pain, nonspecific TECHNIQUE: Single frontal radiograph of the chest was obtained. Comparison: Comparison is made to chest radiograph 03/01/2023 FINDINGS: No lines and tubes are seen. Cardiomegaly is noted. The aortic arch is calcified. The lungs are clear. No evidence of pleural effusion or pneumothorax. IMPRESSION: No acute chest disease. Cardiomegaly is noted. Medications Administered ER Medications Given: Magnesium sulfate 1g IV Potassium chloride 10 meq IV NSS 500ml bolus Labetalol 10mg IV ECG Rate (beats per minute): 103 Rhythm: sinus tachycardia Findings: no acute ischemic change Comparison ECG Date: from (April 12, 2014) Change: the following changes noted (PACs no longer present) Code Status & VTE Plan Code Status Full VTE Prophylaxis Plan VTE Prophylaxis will be ordered: Yes PG Care Time/CCT Total # of Minutes Spent Total Time Spent with Patient: Total time spent is greater than 50% in coordination of care (as documented) at patient's floor/unit and/or counseling patient: Coding Level of Care Code 52567 INT INP/OBS CARE 3/75MIN Diagnoses Hyponatremia E87.1 Hypertensive urgency I16.0 Shortness of breath R06.02 Carcinoid syndrome E34.0 Obstructive sleep apnea G47.33 Hypomagnesemia E83.42 Hypokalemia E87.6
[2023-03-30 19:14] LABS: Appearance Urine Cloudy (Clear); Bacteria Urine Automated 2+ (Negative); Bilirubin Urine Negative (Negative); Blood Urine Negative (Negative); Color Urine Yellow; Epithelial Cell Urine Auto 0-5 /lpf (0-5); Glucose Urine UA Negative (Negative); Ketones Urine 1+ (Negative); Leukocyte Esterase Urine 3+ (Negative); Nitrite Urine Positive (Negative); Protein Urine Negative (Negative); RBC Urine Automated 0-4 /hpf (0-4); Specific Gravity Urine 1.011 (1.000-1.030); Urobilinogen Urine Negative (Negative); WBC Urine Automated >30 /hpf (0-5); pH Urine 7.5 (4.5-7.5)
[2023-03-30] MEDS ORDERED: PANTOprazole 40 MG TAB PO SCH (22:07)
[2023-03-30] MEDS ORDERED: CETIRIZINE HCL 10 MG TABLET PO SCH (22:07)
[2023-03-30] MEDS ORDERED: hydrALAZINE HCL 20 MG/ML VIAL IV PRN (22:07)
[2023-03-30] MEDS ORDERED: ENOXAPARIN INJ 40 MG/0.4 ML SYR SQ SCH (22:10)
[2023-03-30] MEDS: hydrALAZINE HCL 25 MG TAB PO SCH (22:50)
--- NOTE | 2023-03-31 06:43 | Hospitalist Progress Note ---
Date of Service March 31, 2023 Assessment & Plan (1) Hyponatremia: (2) Hypertensive urgency: (3) Carcinoid syndrome: Plan Hyponatremia / SIADH Chronic Indapemide hold Prevouously lab work up at [facility]: Sodium 130 mmol/l - urine osmolality 370 mOms/kg - Rule out adrenal insufficiency at that moment _Diagnosed as SIADH Urine Na and osm Normal saline 500 ml bolus given in the Er Hypertensive urgency: s/p Labetalol Hold indapemide Hydralazine 10 mg IV 1 4 ht PRN for sBP>180 Hydralazine 25 po TID Losartan 100 mg daily Metoprolol 10 mg daily Carcinoid syndrome - onset 2018,: spells include initially pounding heart, then rapidly shortness or breath, associated significant sweating to the point of dripping from her face and neck, weakness, redness of the ears but not the face, duration 1-3 hours, and profound fatigue after resolution of the symptoms. - Previously on Octreotide monthly held for now - NETest 10/24/21 score 26.7 (0-100), low probability but not normal. Plan was therefore to delay the octreotide injection until symptoms and repeat the NETest. Adrenal adenoma - 1.9 benign right adrenal adenoma at (2020) - In 2021 cortisol post dexamethasone 2.1 mcg/dL, which is just slightly elevated, dexamethasone 649 NG/dL (expected >500 NG/dL so this is an excellent level). In view of the questionable suppression will repeat 1-1.5 years. In 2022 checking salivary cortisol diurnal profile. JG CPAP HS Hypomagnesemia: Mg 2.1 s/p 2 g of MG IV Hypolakemia K 3.5 s/p 10 meEq IV x2 pre diabetic - metformin 1,000 mg BID Med/tele DVT prophylaxys: Lovenox 40 mh Sq Diet Regular Admission and Anticipated Discharge Date Admission Date: March 30, 2023 Subjective 72 year old female here due to SOB and feeling her body moving fast. She reports sudden onset of symptoms mid morning. In the ER she was noted to have multiple electrolyte abnormalities and hypertensive urgency. Improved since medications given in the ER with blood pressure control and electrolyte replacement and she is mostly asymptomatic at this time. No fever, chills, cough, chest pain. She reports taking all her usual medications yesterday morning and did not miss any anti-hypertensives. This is on a background of 2 weeks ago testing positive for COVID-19. Reportedly had a mild illness with 3 days of fever, sore throat and headache. She was treated with Paxlovid on March 17. Also recently prescribed metoclopramide on March 26 although she reports this is a chronic medication she has taken for years without known side effects. Results & Data Results & Data Vital Signs (Past 12 Hours) Vital Signs Temp Pulse Pulse Resp BP BP Pulse Ox 03/31/23 03:33 36.6 C 85 18 162/77 H 95 03/31/23 00:36 91 H 03/30/23 23:30 03/30/23 23:30 36.5 C 83 18 179/74 H 96 03/30/23 21:30 76 27 H 154/78 H 92 03/30/23 21:15 75 19 167/85 H 93 03/30/23 21:00 75 21 165/93 H 91 03/30/23 21:04 75 163/79 H 03/30/23 20:45 77 26 H 174/97 H 95 03/30/23 20:31 82 21 94 03/30/23 20:15 81 19 171/81 H 93 03/30/23 20:00 76 18 163/79 H 91 03/30/23 19:30 77 18 165/88 H 03/30/23 19:25 82 172/83 H 03/30/23 19:16 85 29 H 172/83 H 94 03/30/23 19:10 93 H 28 H 90 03/30/23 19:00 92 H 27 H 177/85 H O2 Del Method 03/31/23 03:33 Room Air 03/31/23 00:36 03/30/23 23:30 Room Air 03/30/23 23:30 Room Air 03/30/23 21:30 Room Air 03/30/23 21:15 Room Air 03/30/23 21:00 Room Air 03/30/23 21:04 03/30/23 20:45 Room Air 03/30/23 20:31 Room Air 03/30/23 20:15 Room Air 03/30/23 20:00 Room Air 03/30/23 19:30 03/30/23 19:25 03/30/23 19:16 Room Air 03/30/23 19:10 Room Air 03/30/23 19:00
[2023-03-31] MEDS ORDERED: MAGNESIUM SULFATE / D5W 1 GM/100 ML BAG IV SCH (07:15)
[2023-03-31 07:38] LABS: Basophils # (auto) 0.02 K/uL (0.00-0.20); Basophils % (auto) 0.4 %; Eosinophils # (auto) 0.08 K/uL (0.00-0.50); Eosinophils % (auto) 1.6 %; Hematocrit (blood only) 35.8 % (37.0-47.0); Hemoglobin 12.7 g/dl (12.0-16.0); Immature Granulocytes # (auto) 0.02 K/uL (0.01-0.20); Immature Granulocytes % (auto) 0.4 %; Lymphocytes # (auto) 1.45 K/uL (1.20-3.40); Lymphocytes % (auto) 28.2 %; Mean Corpuscular Hemoglobin 30.7 pg (25.0-34.0); Mean Corpuscular Hgb Conc 35.5 g/dL (32.0-36.0); Mean Corpuscular Volume 86.5 fL (80.0-100.0); Mean Platelet Volume 8.8 fL (9.4-12.4); Monocytes # (auto) 0.75 K/uL (0.11-0.59); Monocytes % (auto) 14.6 %; Neutrophils # (auto) 2.83 K/uL (1.40-6.50); Neutrophils % (auto) 54.8 %; Platelet Count 347 K/uL (130-400); RDW Coefficient of Variation 12.7 % (11.5-14.5); RDW Standard Deviation 39.4 fL (36.4-46.3); Red Blood Count 4.14 M/uL (4.20-5.40); White Blood Count 5.15 K/ul (4.8-10.8)
[2023-03-31 07:51] LABS: Calcium 8.5 mg/dl (8.6-10.3); Est GFR (African American) 109.3 ml/min; Est GFR (Non-African American) 94.3 ml/min; Magnesium 2.1 mg/dl (1.7-2.4); Potassium 3.5 mmol/L (3.5-5.1)
[2023-03-31] MEDS ORDERED: metFORMIN HCL 500 MG TAB PO SCH (08:00)
[2023-03-31] MEDS: hydrALAZINE HCL 25 MG TAB PO SCH ×2 (08:00→13:04)
[2023-03-31] MEDS: METOCLOPRAMIDE HCL 10 MG TABLET PO SCH ×2 (08:01→11:27)
[2023-03-31 08:18] LABS: Troponin I High Sensitivity 9.2 pg/ml (0-14)
[2023-03-31] MEDS ORDERED: UMECLIDINIUM BROMIDE 62.5MCG/BLISTER 7 PUFFS/INHALER INH SCH (09:00)
[2023-03-31] MEDS ORDERED: CLOPIDOGREL BISULFATE 75 MG TAB PO SCH (09:00)
[2023-03-31] MEDS ORDERED: LOSARTAN POTASSIUM 50 MG TAB PO SCH (09:00)
[2023-03-31] MEDS ORDERED: METOPROLOL SUCC 50MG EXT REL TAB PO SCH (09:00)
[2023-03-31] MEDS ORDERED: amLODIPine BESYLATE 5 MG TAB PO ONE (10:50)
--- NOTE | 2023-03-31 12:21 | Discharge Summary ---
Date of Service March 31, 2023 Admission HPI Per Admitting Provider Danielle Pulliam is a 72 year old female who presents to the ER with shortness of breath, feeling of body moving fast. She reports sudden onset of symptoms mid morning. In the ER she was noted to have multiple electrolyte abnormalities and hypertensive urgency. Improved since medications given in the ER with blood pressure control and electrolyte replacement and she is mostly asymptomatic at this time. No fever, chills, cough, chest pain. She reports taking all her usual medications this morning and did not miss any anti-hypertensives. This is on a background of 2 weeks ago testing positive for COVID-19. Reportedly had a mild illness with 3 days of fever, sore throat and headache. She was treated with Paxlovid on March 17. Also recently prescribed metoclopramide on March 26 although she reports this is a chronic medication she has taken for years without known side effects. She has a complex history of carcinoid syndrome best summarized in Dr Beverly notes. She is currently not on octreotide. She feels her current symptoms are different to her prior carcinoid which was more characterized by flushing which she did not have today. Admission Exam Per Admitting Provider Constitutional: WD/WN, vitals as above Eyes: PERRL, conjunctivae normal, anicteric sclerae Respiratory: normal respiratory effort, lungs clear to auscultation Cardiovascular: RRR, no murmur, no edema Gastrointestinal (Abdomen): normal bowel sounds, soft, nontender, no hepatosplenomegaly Musculoskeletal: no cyanosis or clubbing, extremities motor strength 5/5 Skin: no rashes, warm and dry Neurologic: moves all extremities and awake; not confused Psychiatric: A+Ox3, euthymic affect Genitourinary: no CVA tenderness Principal Diagnosis Hypertensive urgency (resolved) Hyponatremia (SIADH) Discharge Exam Constitutional WD/WN, vitals as above ENMT external ear and nose normal, oropharynx normal Respiratory normal respiratory effort, lungs clear to auscultation Gastrointestinal (Abdomen) normal bowel sounds, soft, nontender, no hepatosplenomegaly Musculoskeletal no cyanosis or clubbing, extremities motor strength 5/5 Skin no rashes, warm and dry Neurologic PERRL, EOMI, accommodation nl, no face palsy, no dysarthria Discharge Data Allergies Allergy/AdvReac Type Severity Reaction Status Date / Time Iodinated Contrast Media Allergy Unknown Hives Verified 03/30/23 19:12 moxifloxacin [From Avelox] Allergy Unknown itching Verified 03/30/23 22:11 Penicillins Allergy Unknown REMOTE HX, Verified 03/30/23 19:12 PT CAN'T REMEMBER Sulfa (Sulfonamide Allergy Unknown FACE Verified 03/30/23 19:12 Antibiotics) SWELLS UP Tetracyclines Allergy Unknown ? ITCH ALL Verified 03/30/23 19:12 OVER, PT NOT SURE Consultations 03/30/23 18:47 ED Decision to Admit Stat Ordered Studies Microbiology 03/30/23 17:39 Urine,Clean Catch Urine Culture - Preliminary Gram negative bacilli Labs 03/30/23 03/30/23 03/30/23 16:17 16:17 17:39 WBC RBC Hgb Hct MCV MCH MCHC RDW Std Deviation RDW Coeff of Lion Plt Count MPV Immature Gran % (Auto) Neut % (Auto) Lymph % (Auto) [place] % (Auto) Eos % (Auto) Baso % (Auto) Neut # (Auto) Lymph # (Auto) [place] # (Auto) Eos # (Auto) Baso # (Auto) Immature Gran # (Auto) PT INR APTT PTT Ratio Sodium Potassium Chloride Carbon Dioxide Anion Gap BUN Creatinine Est Cr Clr Drug Dosing Est GFR ( Amer) Est GFR (Non-Af Amer) BUN/Creatinine Ratio Glucose Osmolality 263 L Calcium Phosphorus Magnesium Total Bilirubin AST ALT Alkaline Phosphatase Troponin I High Sens B-Natriuretic Peptide 90 Total Protein Albumin Globulin Albumin/Globulin Ratio TSH Urine Color Yellow Urine Appearance Cloudy A Urine pH 7.5 Ur Specific [place] 1.011 Urine Protein Negative Urine Glucose (UA) Negative Urine Ketones 1+ H Urine Blood Negative Urine Nitrite Positive A Urine Bilirubin Negative Urine Urobilinogen Negative Ur Leukocyte Esterase 3+ H Urine WBC (Auto) >30 H Urine RBC (Auto) 0-4 U Hyaline Cast (Auto) 1-5 U Epithel Cells (Auto) 0-5 Urine Bacteria (Auto) 2+ H Urine Osmolality Ur Random Sodium 03/30/23 03/30/23 03/30/23 17:39 17:39 Unknown WBC 8.70 RBC 4.58 Hgb 13.9 Hct 39.4 MCV 86.0 MCH 30.3 MCHC 35.3 RDW Std Deviation 39.8 RDW Coeff of Lion 12.7 Plt Count 384 MPV 8.9 L Immature Gran % (Auto) 0.8 Neut % (Auto) 74.8 Lymph % (Auto) 12.5 [place] % (Auto) 11.4 Eos % (Auto) 0.3 Baso % (Auto) 0.2 Neut # (Auto) 6.50 Lymph # (Auto) 1.09 L [place] # (Auto) 0.99 H Eos # (Auto) 0.03 Baso # (Auto) 0.02 Immature Gran # (Auto) 0.07 PT INR APTT PTT Ratio Sodium Potassium Chloride Carbon Dioxide Anion Gap BUN Creatinine Est Cr Clr Drug Dosing Est GFR ( Amer) Est GFR (Non-Af Amer) BUN/Creatinine Ratio Glucose Osmolality Calcium Phosphorus Magnesium Total Bilirubin AST ALT Alkaline Phosphatase Troponin I High Sens B-Natriuretic Peptide Total Protein Albumin Globulin Albumin/Globulin Ratio TSH Urine Color Urine Appearance Urine pH Ur Specific [place] Urine Protein Urine Glucose (UA) Urine Ketones Urine Blood Urine Nitrite Urine Bilirubin Urine Urobilinogen Ur Leukocyte Esterase Urine WBC (Auto) Urine RBC (Auto) U Hyaline Cast (Auto) U Epithel Cells (Auto) Urine Bacteria (Auto) Urine Osmolality 361 L Ur Random Sodium 77 03/30/23 03/30/23 03/30/23 Unknown Unknown Unknown WBC RBC Hgb Hct MCV MCH MCHC RDW Std Deviation RDW Coeff of Lion Plt Count MPV Immature Gran % (Auto) Neut % (Auto) Lymph % (Auto) [place] % (Auto) Eos % (Auto) Baso % (Auto) Neut # (Auto) Lymph # (Auto) [place] # (Auto) Eos # (Auto) Baso # (Auto) Immature Gran # (Auto) PT 11.4 INR 1.0 APTT 30.9 PTT Ratio 1.1 Sodium 125 L Potassium 3.3 L Chloride 91 L Carbon Dioxide 23 Anion Gap 11 BUN 10 Creatinine 0.93 Est Cr Clr Drug Dosing 51.2 Est GFR ( Amer) 71.2 Est GFR (Non-Af Amer) 61.4 BUN/Creatinine Ratio 10.8 Glucose 123 H Osmolality Calcium 9.6 Phosphorus 2.6 Magnesium 1.5 L Total Bilirubin 0.5 AST 21 ALT 21 Alkaline Phosphatase 56 Troponin I High Sens 11.5 B-Natriuretic Peptide Total Protein 7.5 Albumin 4.5 Globulin 3.0 Albumin/Globulin Ratio 1.5 TSH 2.052 Urine Color Urine Appearance Urine pH Ur Specific [place] Urine Protein Urine Glucose (UA) Urine Ketones Urine Blood Urine Nitrite Urine Bilirubin Urine Urobilinogen Ur Leukocyte Esterase Urine WBC (Auto) Urine RBC (Auto) U Hyaline Cast (Auto) U Epithel Cells (Auto) Urine Bacteria (Auto) Urine Osmolality Ur Random Sodium 03/31/23 03/31/23 07:09 07:09 WBC 5.15 RBC 4.14 L Hgb 12.7 Hct 35.8 L MCV 86.5 MCH 30.7 MCHC 35.5 RDW Std Deviation 39.4 RDW Coeff of Lion 12.7 Plt Count 347 MPV 8.8 L Immature Gran % (Auto) 0.4 Neut % (Auto) 54.8 Lymph % (Auto) 28.2 [place] % (Auto) 14.6 Eos % (Auto) 1.6 Baso % (Auto) 0.4 Neut # (Auto) 2.83 Lymph # (Auto) 1.45 [place] # (Auto) 0.75 H Eos # (Auto) 0.08 Baso # (Auto) 0.02 Immature Gran # (Auto) 0.02 PT INR APTT PTT Ratio Sodium 130 L Potassium 3.5 Chloride 99 Carbon Dioxide 24 Anion Gap 7 BUN 7 Creatinine 0.54 L D Est Cr Clr Drug Dosing 88.0 Est GFR ( Amer) 109.3 Est GFR (Non-Af Amer) 94.3 BUN/Creatinine Ratio 13.0 Glucose 105 H Osmolality Calcium 8.5 L Phosphorus Magnesium 2.1 Total Bilirubin AST ALT Alkaline Phosphatase Troponin I High Sens 9.2 B-Natriuretic Peptide Total Protein Albumin Globulin Albumin/Globulin Ratio TSH Urine Color Urine Appearance Urine pH Ur Specific [place] Urine Protein Urine Glucose (UA) Urine Ketones Urine Blood Urine Nitrite Urine Bilirubin Urine Urobilinogen Ur Leukocyte Esterase Urine WBC (Auto) Urine RBC (Auto) U Hyaline Cast (Auto) U Epithel Cells (Auto) Urine Bacteria (Auto) Urine Osmolality Ur Random Sodium Chest X-Ray 03/30/23 15:54 XR chest 1V portable CLINICAL HISTORY: Chest pain, nonspecific TECHNIQUE: Single frontal radiograph of the chest was obtained. Comparison: Comparison is made to chest radiograph 03/01/2023 FINDINGS: No lines and tubes are seen. Cardiomegaly is noted. The aortic arch is calcified. The lungs are clear. No evidence of pleural effusion or pneumothorax. IMPRESSION: No acute chest disease. Cardiomegaly is noted. ACT 112: Negative or not required by law. Electronically signed by: Gagandeep Fernandez M.D. 03/30/2023 5:07 PM Hospital Course (1) Hyponatremia: (2) Hypertensive urgency: Plan Danielle Pulliam is a 72 year old female who presents to the ER with shortness of breath, feeling of body moving fast. She reports sudden onset of symptoms mid morning. In the ER she was noted to have multiple electrolyte abnormalities and hypertensive urgency. Improved since medications given in the ER with blood pressure control and electrolyte replacement and she is mostly asymptomatic. - Held indapamide. Possible SIADH in setting of recent COVID infection. Sodium increased to her 130s on discharge - Increased dose of Hydralazine from 25 mg to 50 mg TID. Advised to check BP at home and take readings to primary care provider. - Restrict water intake to 1,500ml per day - Hold indapamide until reassessment with Cardiology (has appointment next week) and/or PCP - Follow up with your PCP within a week with a BMP (blood test) Total Time Total Time Spent Total Time Spent (In Minutes): see attending attestation Discharge Plan Discharge Items Patient Disposition: Home - Self-Care Reason For Visit: HYPONATREMIA Discharge Diagnosis: Hyponatremia (SIADH) Hypertensive urgency Activity: Resume your previous activity Non-emergency contact: Primary Care Provider Call non-emergency contact if: you have any medication questions Follow-up/Referrals: Becky Tavarez MD [Primary Care Provider] - (PLEASE CALL YOUR PRIMARY CARE PROVIDER TO SCHEDULE A HOSPITAL DISCHARGE FOLLOW-UP APPOINTMENT WITHIN 7-10 DAYS) Diet: Heart Healthy Fluids: 1500ml (6 cups) Addtl Attending Provider Instructions: You were here in the hospital due to SOB and palpitation. You were found with hypertensive urgency (blood pressure higher than 180/110). You were manage with hypertensive medication on the ED and we replace your electrolytes. Additionally, you were found with hyponatremia (low sodium levels in your blood.) which seem to be chronic.. After management, your sodium went back to your baseline levels. Instructions: -If your systolic blood pressure go higher than 160 you should increase the hydralazine dose from 25mg to 50 mg on the next dose of Hydralazine. - Follow up with your Cardiology on Sunday - Continue Mindfulness techniques as explained during your admission - You should restrict your fluid intake to 1,500 ml per day - Hold indapamide until reassessment with Cardiology and/or PCP - Follow up with your PCP within a week with a BMP (blood test) Pending Studies at Discharge: No Stand-Alone Forms: My [facility], Smoking Cessation Medications and DC Order Prescriptions: Continued metoprolol succinate 100 mg tablet extended release 24 hr 100 mg PO DAILY Qty: 30 2RF Spiriva Respimat 2.5 mcg/actuation mist 2 puff inhalation QAM Qty: 12 3RF metformin 500 mg tablet 1,000 mg PO BID Qty: 360 3RF esomeprazole magnesium 40 mg capsule,delayed release(DR/EC) 40 mg PO QPM Qty: 90 3RF (DME) Blood Glucose Test Strip See Rx Instructions .ROUTE .MEDSUPPLY Qty: 400 1RF Rx Instructions: Use 4 daily to check blood sugars Onetouch Verio (DME) lancets [OneTouch Delica Lancets] 33 gauge misc See Rx Instructions .ROUTE .MEDSUPPLY Qty: 400 1RF Rx Instructions: test 4 times daily metoclopramide HCl 10 mg tablet 10 mg PO TID fluticasone propionate [Flonase Allergy Relief] 50 mcg/actuation spray,suspension 2 spray intranasal BID Rx Instructions: administer into each nostril Zyrtec 10 mg capsule 10 mg PO QPM hydralazine 25 mg tablet 25 mg PO TID albuterol sulfate [Ventolin HFA] 90 mcg/actuation HFA aerosol inhaler 2 puff inhalation Q4H PRN (Reason: Shortness Of Breath) Qty: 3 3RF Prolia 60 mg/mL syringe subcut Q6MO cholecalciferol (vitamin D3) 125 mcg (5,000 unit) capsule 125 mcg PO DAILY ipratropium bromide 21 mcg (0.03 %) spray,non-aerosol See Rx Instructions .ROUTE .COMPLEX Qty: 30 5RF Rx Instructions: USE 1-2 SPRAYS EACH NOSTRIL 1-2 TIMES DAILY.; administer into each nostril acetaminophen [Tylenol Extra Strength] 500 mg Tablet 500 mg PO Q6H PRN (Reason: Pain) clopidogrel 75 mg tablet 75 mg PO QAM Rx Instructions: TAKE 1 TABLET EVERY MORNING olmesartan 40 mg tablet 40 mg PO QAM Rx Instructions: TAKE 1 TABLET IN THE EVENING Discontinued azithromycin 250 mg tablet See Rx Instructions PO .COMPLEX Qty: 6 0RF Rx Instructions: take 2 tabs by mouth x1 day and then 1 tab by mouth daily x4 days. indapamide 1.25 mg tablet 1.25 mg PO QAM Rx Instructions: TAKE 1 TABLET EVERY MORNING Discharge Orders: Discharge Order (Routine); Ordered 03/31/23 Ordered By: Albina Isabel Admission Data Admit Date/Time: 03/30/23 19:49 Attending Provider: Yvonne Villa Admit Provider: Jens Sanchez Primary Care Provider: Becky Tavarez Other Providers: Jens Sanchez Other Interventions: Discharge Summary Assessment (RN) Last Done: 03/31/23 12:57 Supervising Physician Co-Signing Physician Notes Resident Physician Supervision Note: I independently interviewed and examined the patient and verified the angel history and physical, reviewed labs and image studies and agree with resident findings and care plan. I spoke to Amparo and instructed to increase hydralazine to 50mgs tid and not 75mgs tid. She will keep checking her BP and call the primary care if the blood pressure is consistently higher than 160 systolic. If the systolic BP is lower than 110 then she will go back to 25mgs tid dose of hydralazine. She verbalized understanding. Resident Activity Tracking Resident Involvement: Resident Care Provided Care Provided: Adult Hospital Medicine
== END 2023-03-31 13:15 | disposition home or self-care (01) | DRG 644 ==
LOC: ED 15:24 → 2N 19:49 → SUATTDRO 19:49 → INTOOBSV 19:49 → 2N 21:55

== ENCOUNTER 2024-02-07 13:18 | Inpatient (IN) ==
[2024-02-07] MEDS: MAGNESIUM SULFATE / D5W 1 GM/100 ML BAG IV STA (13:42)
[2024-02-07] MEDS: dilTIAZem HCl 5 MG/ML 5 ML VIAL IV STA ×3 (13:42→16:17)
[2024-02-07] MEDS: SODIUM CHLORIDE 0.9% 500 ML IV SCH (13:43)
--- NOTE | 2024-02-07 13:44 | Emergency Department Note ---
Impression & Plan Atrial fibrillation with rapid ventricular response, SOB (shortness of breath), Hypokalemia, Effusion, pericardium ED Provider Note NAME: YOKO MATTA AGE: 73 SEX: F : 1950 ARRIVES VIA: Walk-In INFORMANT: Patient, the patient's ED PROVIDER(S): Levar Jones DO CHIEF COMPLAINT: Difficulty breathing HPI: The patient is a 73-year-old female who presented to the emergency department for an evaluation of difficulty breathing. The patient states that she was in our facility recently with a stroke. She did have a subarachnoid hemorrhage and was transferred to [facility]. She recently had a Ignacio procedure. She presented to the emergency department today because of difficulty breathing. She notices difficulty breathing with exertion. She denies having any orthopnea. The patient denies having any lower extremity swelling or pain. The patient recently was stopped on her beta-kell. She currently does not take blood thinners. The patient denies having any fever or coughing. ROS: See above HPI for pertinent positives & negatives. A total of 10 systems reviewed and were otherwise negative. PAST MEDICAL HISTORY: See Below PAST SURGICAL HISTORY: See Below FAMILY HISTORY: See Below SOCIAL HISTORY: See Below HOME MEDICATIONS: See Below ALLERGIES: See Below VITALS: See Below PHYSICAL EXAMINATION: GENERAL: The patient is awake and alert. The patient is mildly anxious appearing. EYES: The conjunctivae are clear. The pupils are round and reactive. EARS, NOSE, MOUTH AND THROAT: The nose is without any evidence of any deformity. Mucous membranes are moist. Tongue is midline. NECK: The neck is nontender and supple. RESPIRATORY: Diminished breath sounds are noted both bases. There is no rales rhonchi or wheezing. CARDIOVASCULAR: Tachycardic and irregular heart sounds were noted to auscultation. There is no definite murmur. GASTROINTESTINAL: The abdomen is soft. Abdomen is nontender. MUSCULOSKELETAL/EXTREMITIES: There is no evidence of gross deformity full range of motion is noted in the hips and shoulders. SKIN: There is no obvious evidence of any rash. There are no petechiae, pallor or cyanosis noted. NEUROLOGIC: Patient is awake alert and oriented x3 strength is symmetric patellar reflexes are 2+ bilaterally MEDICAL DECISION MAKING: The patient is a 73-year-old female who presented to the emergency department for an evaluation of difficulty breathing. The patient noticed palpitations and difficulty breathing. She states that the symptoms began today. The patient was found to be in atrial fibrillation with RVR. She had a recent procedure at [facility]. She had a Watchman procedure. The patient does not currently take anticoagulation. She was recently weaned off of her beta-kell because of dizziness. The patient was treated with IV fluids and IV Cardizem in the emergency department. There was concern for venous thromboembolic disease as well as other causes for shortness of breath. For this reason further laboratory and radiographic studies were obtained including CT of the chest. She does appear to have a pericardial effusion on CT. There is no signs of venous thromboembolic disease. I discussed her condition with the patient's on- call [facility] intranet specialist. They do recommend that the patient be restarted on beta-blockade. They do not recommend anticoagulation at this time especially given the pericardial effusion. They do recommend an echocardiogram. [facility] have agreed to evaluate the patient in the emergency department for further management and disposition. On reevaluation patient was in sinus rhythm. She still has significant shortness of breath with exertion. Triage Nursing notes reviewed. Prior medical records reviewed Vital Signs: reviewed and remarkable for initial tachycardia and hypotension. Differential diagnosis: Reactive airway disease, pneumonia, pneumothorax, COPD, CHF, infections, cardiac ischemia, pulmonary embolism, musculoskeletal, gastrointestinal, as well as other pathologies. ER treatment provided: See below Diagnostics interpreted by me: ECG: EKG was obtained in the emergency department. My interpretation is atrial fibrillation at 141 bpm. No PVCs were noted. Nonspecific inferior and lateral ST segment depressions were noted. This was compared to a tracing from November 09, 2023. The atrial fibrillation as well as the ST segment abnormalities are new compared to the previous tracing.] Cardiac Monitoring: An order was placed for continuous cardiac monitoring. The monitor shows a rate of 121 bpm with atrial fibrillation and RVR. Laboratory studies: As stated above and show below. Imaging studies: See below. Radiographic imaging was reviewed by myself Consultation(s): I discussed this case with Dr. House who is on-call for the [facility] cardiology group. We reviewed the patient's laboratory and radiographic studies. At this time he does recommend metoprolol tartrate 25 mg. A goal of 3 times daily dosing for this patient. Also a follow-up echocardiogram to assess the Watchman as well as the pericardial effusion noted on today's CT. No anticoagulation at this time. Dr. Salcedo who is on for the [facility] hospitalist group was notified about the patient. ED COURSE: Procedures: none Critical Care: I have personally spent greater than 45 minutes of critical care time in the direct management of this patient. This includes bedside care, interpretation of diagnostic studies, and testing, discussion with consultants, patient, and family members, and other required patient management activities. This 45 minutes is in excess of all separately billable procedures. Past Med/Surg History Problem List (Updated 02/07/24 @ 16:48 by Levar Jones DO) Effusion, pericardium (Acute) Hypokalemia (Acute) SOB (shortness of breath) (Acute) Atrial fibrillation with rapid ventricular response (Acute) CVA (cerebral vascular accident) Midline shift of brain (Acute) Subarachnoid hemorrhage (Acute) Acute intracerebral hemorrhage (Acute) GERD (gastroesophageal reflux disease) Hyperlipidemia Ischemic cerebrovascular accident (CVA) Shoulder pain, right FSH (facioscapulohumeral muscular dystrophy) COPD (chronic obstructive pulmonary disease) Dyspnea on exertion Former smoker SIADH (syndrome of inappropriate ADH production) HTN (hypertension) Prediabetes (Chronic) Dysphagia (Acute) Vitamin D deficiency (Acute) Liver lesion, right lobe (Acute) IBS (irritable bowel syndrome) LVH (left ventricular hypertrophy) Diastolic dysfunction Tremor Tachycardia Weakness Other specified myopathies Carcinoid syndrome Hypoglycemia Obstructive sleep apnea Medical History History of small bowel obstruction (~2013) History of colon polyps History of skin cancer Antibiotic-induced yeast infection PRONE TO YEAST INFECTIONS WITH ANTIBIOTIC USE Seasonal allergies Family history of reaction to anesthesia SISTER, N&V Lung nodules MONITORS Adrenal adenoma Carcinoid tumor of colon History of claustrophobia MILD Hypercholesterolemia DENIES Nasal cavity polyp Mild obstructive sleep apnea CPAP Osteoporosis Chronic rhinitis Langerhans cell histiocytosis ? History of CVA (cerebrovascular accident) HX STROKE AGE 49 / HX UNCONTROLLED BP AFTER STROKE , NOW RESOLVED Gastroparesis DENIES GERD (gastroesophageal reflux disease) Surgical History History of surgery REMOTE HX FOR REMOVAL OF SKIN CA History of Mohs micrographic surgery for skin cancer History of lung biopsy H/O hysterectomy with oophorectomy S/P thoracotomy DENIES , REPORTS HX LUNG BIOPSY Hx of exploratory laparotomy HX BOWEL OBSTRUCTION S/P appendectomy H/O: hysterectomy TOTAL Family History Father Myocardial infarction Hypertension Mother Congestive heart failure Hypertension Grandfather (Paternal) Myocardial infarction Grandfather (Maternal) Myocardial infarction Grandmother Colorectal cancer Other Atrial fibrillation Family history of diabetes mellitus Social History Smoking Status: Former smoker Tobacco Type: Cigarettes Age Started Using Tobacco: 16; Age Quit Using Tobacco: 63; packs per day: 0.75; Second Hand Exposure: No; Do You Dip or Chew Tobacco: No; Hx Alcohol Use: Yes Alcohol type: wine Hx Substance Use: No Preferred Language: Ghanaian Communication Ability: Effective Ordnance Engineering Technician Required: No Beliefs That Will Affect Care: None marital status: Current Living Situation: Spouse current occupational status: retired Feels Safe at Home: Yes Seatbelt Use: always Sunscreen Use: Yes Assistive Devices: CPAP and Glasses Allergies Allergies Allergy/AdvReac Type Severity Reaction Status Date / Time Iodinated Contrast Media Allergy Intermediate Hives Verified 02/07/24 15:52 mold Allergy Intermediate SNEEZING/CO Verified 02/07/24 15:52 NGESTION moxifloxacin [From Avelox] Allergy Intermediate ITCHING/YEAST Verified 02/07/24 15:52 INFECTION Tetracyclines Allergy Intermediate ? ITCH ALL Verified 02/07/24 15:46 OVER, PT NOT SURE adhesive Allergy Mild ITCHY RASH Verified 02/07/24 15:52 amlodipine AdvReac Intermediate FATIGUE/CON Verified 02/07/24 15:52 STIPATION cefuroxime AdvReac Intermediate CAUSED C. Verified 02/07/24 15:52 DIFF INFECTION Home Meds Home Medications Medication Instructions Recorded Confirmed acetaminophen 500 mg tablet 500 mg PO Q6H PRN Pain 01/30/19 02/07/24 (Tylenol Extra Strength) cetirizine 10 mg capsule (Zyrtec) 10 mg PO DAILY PRN Allergy Symptoms 09/10/19 02/07/24 fluticasone propionate 50 2 spray intranasal DAILY PRN 04/13/22 02/07/24 mcg/actuation nasal Allergy Symptoms spray,suspension (Flonase Allergy Relief) clopidogrel 75 mg tablet 75 mg PO QAM 09/12/22 02/07/24 metoclopramide HCl 10 mg tablet 10 mg PO TID 10/04/22 02/07/24 denosumab 60 mg/mL subcutaneous 60 mg subcut Q6MO 02/07/23 02/07/24 syringe (Prolia) metoprolol succinate 25 mg 25 mg PO BID 04/11/23 02/07/24 tablet,extended release 24 hr aspirin 81 mg chewable tablet 81 mg PO DAILY 02/07/24 02/07/24 hydralazine 100 mg tablet 100 mg PO TID 02/07/24 02/07/24 levetiracetam 500 mg tablet 500 mg PO BID 02/07/24 02/07/24 (Keppra) losartan 50 mg tablet 50 mg PO BID 02/07/24 02/07/24 multivitamin 1 tab PO QAM 02/07/24 02/07/24 nifedipine 30 mg tablet,extended 30 mg PO DAILY 02/07/24 02/07/24 release tramadol 50 mg tablet 50 mg PO Q4H PRN Pain 02/07/24 02/07/24 Previous Rx's Medication Instructions Recorded albuterol sulfate 90 mcg/actuation 2 puff inhalation Q4H PRN 10/25/22 aerosol inhaler (Ventolin HFA) Shortness Of Breath #3 Inhalers esomeprazole magnesium 40 mg 40 mg PO QPM #90 caps 03/12/23 capsule,delayed release fluticasone fur. 100 mcg-umeclid 1 inh inhalation DAILY #3 Inhalers 12/25/23 62.5 mcg-vilant 25 mcg inhalat.powder (Trelegy Ellipta) Results & Data (ED) Vital Signs Vital Signs - 24 hr 02/07/24 13:20 02/07/24 13:25 02/07/24 13:25 Temperature 36.6 C Temperature Source Oral Pulse Rate 158 H Pulse Rate from SpO2 Sensor Pulse Rhythm Irregular Pulse Strength Normal Respiratory Rate 28 H Respiratory Effort / Characteristics Non-Labored Spontaneous Short of Breath Respiratory Depth Normal Normal Respiratory Pattern Regular Blood Pressure 92/60 L Blood Pressure Mean 70 Blood Pressure Position Sitting Pulse Oximetry 93 93 Oxygen Delivery Method Room Air Room Air Room Air Sepsis Recent Fever Within 48 Hours No Sepsis New/Unexplained Change in Mental Status No Sepsis Action Taken by Nursing No Action Required 02/07/24 13:33 02/07/24 13:42 02/07/24 13:45 Temperature Temperature Source Pulse Rate 145 H 131 H 120 H Pulse Rate from SpO2 Sensor 128 H 124 H Pulse Rhythm Regular Pulse Strength Respiratory Rate 27 H 30 H 30 H Respiratory Effort / Characteristics Respiratory Depth Respiratory Pattern Blood Pressure 106/68 117/81 Blood Pressure Mean 80 93 Blood Pressure Position Pulse Oximetry 94 94 94 Oxygen Delivery Method Room Air Room Air Room Air Sepsis Recent Fever Within 48 Hours Sepsis New/Unexplained Change in Mental Status Sepsis Action Taken by Nursing 02/07/24 14:00 02/07/24 14:12 02/07/24 14:30 Temperature Temperature Source Pulse Rate 122 H 141 H Pulse Rate from SpO2 Sensor 116 H 133 H Pulse Rhythm Pulse Strength Respiratory Rate 19 18 Respiratory Effort / Characteristics Respiratory Depth Respiratory Pattern Blood Pressure 136/70 104/70 Blood Pressure Mean 103 81 Blood Pressure Position Pulse Oximetry 94 92 Oxygen Delivery Method Room Air Room Air Sepsis Recent Fever Within 48 Hours Sepsis New/Unexplained Change in Mental Status Sepsis Action Taken by Nursing 02/07/24 15:00 02/07/24 15:06 Temperature Temperature Source Pulse Rate 121 H Pulse Rate from SpO2 Sensor 122 H Pulse Rhythm Pulse Strength Respiratory Rate 25 H Respiratory Effort / Characteristics Respiratory Depth Respiratory Pattern Blood Pressure 132/88 Blood Pressure Mean 107 Blood Pressure Position Pulse Oximetry 95 Oxygen Delivery Method Room Air Sepsis Recent Fever Within 48 Hours Sepsis New/Unexplained Change in Mental Status Sepsis Action Taken by Alf Medications Current Medication List: was personally reviewed by me Laboratory Data Attestation: I reviewed the patient's lab results. 02/07/24 13:40 02/07/24 13:40 Lab Results 02/07/24 02/07/24 Range/Units 13:40 14:40 WBC 7.72 (4.8-10.8) K/ul RBC 4.49 (4.20-5.40) M/uL Hgb 13.9 (12.0-16.0) g/dl Hct 41.4 (37.0-47.0) % MCV 92.2 (80.0-100.0) fL MCH 31.0 (25.0-34.0) pg MCHC 33.6 (32.0-36.0) g/dL RDW Std Deviation 43.6 (36.4-46.3) fL RDW Coeff of Lion 12.9 (11.5-14.5) % Plt Count 405 H (130-400) K/uL MPV 9.3 L (9.4-12.4) fL Immature Gran % (Auto) 0.5 % Neut % (Auto) 72.0 % Lymph % (Auto) 14.4 % Rice % (Auto) 12.2 % Eos % (Auto) 0.5 % Baso % (Auto) 0.4 % Neut # (Auto) 5.56 (1.40-6.50) K/uL Lymph # (Auto) 1.11 L (1.20-3.40) K/uL Rice # (Auto) 0.94 H (0.11-0.59) K/uL Eos # (Auto) 0.04 (0.00-0.50) K/uL Baso # (Auto) 0.03 (0.00-0.20) K/uL Immature Gran # (Auto) 0.04 (0.01-0.20) K/uL PT 11.1 (9.0-12.0) Seconds INR 1.0 (0.9-1.1) APTT 31 (21-31) Seconds PTT Ratio 1.2 D-Dimer 1260 H* (0-500) ug/L FEU Sodium 134 L (136-145) mmol/L Potassium 3.1 L (3.5-5.1) mmol/L Chloride 103 (98-107) mmol/L Carbon Dioxide 21 (21-32) mmol/L Anion Gap 10 (3-11) BUN 8 (6-23) mg/dl Creatinine 0.57 L (0.6-1.2) mg/dl Est Cr Clr Drug Dosing 75.9 ml/min Est GFR ( Amer) 106.6 ml/min Est GFR (Non-Af Amer) 92.0 ml/min BUN/Creatinine Ratio 14.0 (10-20) Glucose 138 H (70-99(Fasting)) mg/dl Calcium 9.9 (8.6-10.3) mg/dl Magnesium 1.7 (1.7-2.4) mg/dl Total Bilirubin 0.4 (0.2-1.0) mg/dl AST 22 (13-39) U/L ALT 25 (7-52) U/L Alkaline Phosphatase 73 (34-104) U/L Total Creatine Kinase 15 L (26-192) U/L Troponin I High Sens 15.6 H (0-14) pg/ml B-Natriuretic Peptide 242 H (0-100) pg/ml Total Protein 7.4 (6.0-8.3) gm/dl Albumin 4.2 (3.4-5.0) gm/dl Globulin 3.2 (2.5-4.0) gm/dl Albumin/Globulin Ratio 1.3 (0.9-2) TSH 1.085 (0.300-4.500) uIu/ml Urine Color Yellow Urine Appearance Clear (Clear) Urine pH 7.0 (4.5-7.5) Ur Specific Adah 1.006 (1.000-1.030) Urine Protein Negative (Negative) Urine Glucose (UA) Negative (Negative) Urine Ketones Negative (Negative) Urine Blood Negative (Negative) Urine Nitrite Negative (Negative) Urine Bilirubin Negative (Negative) Urine Urobilinogen Negative (Negative) Ur Leukocyte Esterase Trace H (Negative) Urine WBC (Auto) 0-5 (0-5) /hpf Urine RBC (Auto) 0-2 (0-2) /hpf U Hyaline Cast (Auto) 0-2 (0-2) /lpf U Epithel Cells (Auto) 0-2 (0-2) /hpf Urine Bacteria (Auto) None Seen (None Seen) Administered Medications Discontinued Medications Diltiazem HCl (Diltiazem Hcl 5 Mg/Ml 5 Ml Vial) 5 mg IV NOW STA Stop: 02/07/24 13:37 Last Admin: 02/07/24 13:42 Dose: 5 mg Documented By: DAREN Co-signed By: GARIMA Diltiazem HCl (Diltiazem Hcl 5 Mg/Ml 5 Ml Vial) 5 mg IV NOW STA Stop: 02/07/24 14:59 Last Admin: 02/07/24 15:05 Dose: 5 mg Documented By: DAREN Co-signed By: EMETERIO Diltiazem HCl (Diltiazem Hcl 5 Mg/Ml 5 Ml Vial) 10 mg IV NOW STA Stop: 02/07/24 16:09 Last Admin: 02/07/24 16:17 Dose: 10 mg Documented By: GARIMA Co-signed By: SYLWIA Diphenhydramine HCl (Diphenhydramine 50 Mg/Ml Vial) 50 mg IV ONE ONE Stop: 02/07/24 15:14 Last Admin: 02/07/24 15:17 Dose: 50 mg Documented By: DAREN Sodium Chloride (Nss) 500 mls @ 999 mls/hr IV .Q31M DOREEN Stop: 02/07/24 14:15 Last Infusion: 02/07/24 15:09 Dose: Infused Documented By: Admin: 02/07/24 13:43 Dose: 999 mls/hr Documented By: DAREN Magnesium Sulfate/Dextrose (Magnesium Sulfate / D5w) 1 gm in 100 mls @ 100 mls/hr IV NOW STA Stop: 02/07/24 14:36 Last Infusion: 02/07/24 15:08 Dose: Infused Documented By: Admin: 02/07/24 13:42 Dose: 100 mls/hr Documented By: DAREN Potassium Chloride (K Gary / Wtr) 10 meq in 100 mls @ 100 mls/hr IV ONE ONE Stop: 02/07/24 15:19 Last Infusion: 02/07/24 16:59 Dose: Infused Documented By: Admin: 02/07/24 15:46 Dose: 100 mls/hr Documented By: DAREN Famotidine (Pepcid 20mg Iv Push) 20 mg in 5 mls @ 2.5 mls/min IV NOW STA Stop: 02/07/24 14:57 Last Admin: 02/07/24 15:16 Dose: 2.5 mls/min Documented By: DAREN Sodium Chloride (Nss) 500 mls @ 999 mls/hr IV .Q31M ONE Stop: 02/07/24 15:28 Last Infusion: 02/07/24 16:37 Dose: Infused Documented By: Admin: 02/07/24 15:05 Dose: 999 mls/hr Documented By: DAREN Ioversol (Optiray 320 125ml) 119 ml IV ONCE ONE Stop: 02/07/24 15:27 Last Admin: 02/07/24 15:27 Dose: 119 ml Documented By: MOLLY Methylprednisolone (Methylprednisolone 125 Mg/2 Ml Vial) 40 mg IV NOW ONE Stop: 02/07/24 15:14 Last Admin: 02/07/24 15:16 Dose: 40 mg Documented By: DAREN Imaging Data Attestation: I personally reviewed and interpreted this imaging study as follows: My Impression: 1 view chest x-ray was obtained in the emergency department. My interpretation is cardiomegaly, final report below. Radiologist's Impression: Chest X-Ray 02/07/24 13:37 XR chest 1V portable CLINICAL HISTORY: weakness TECHNIQUE: Single frontal radiograph of the chest was obtained. Comparison: Comparison is made to chest radiograph 08/12/2023 FINDINGS: No lines and tubes are seen. Cardiomegaly is noted. The aortic arch is calcified. The lungs are clear. No evidence of pleural effusion or pneumothorax. IMPRESSION: No acute chest disease. ACT 112: Negative or not required by law. Electronically signed by: Gagandeep Fernandez M.D. 02/07/2024 1:[address] 02/07/24 13:37 CT head/brain wo con CLINICAL HISTORY: weakness Technique: Contiguous axial CT images of the head were acquired from the base of the skull to the vertex without intravenous contrast administration. Images were viewed in brain, subdural and bone windows. Automated dose lowering techniques and/or adjustment according to patient size were utilized for this exam. Comparison: Comparison is made to CT head 11/09/2023 Findings: Encephalomalacia is seen in the prior region of hemorrhage. No acute abnormalities are seen in particular no evidence of acute infarct. A small amount of right maxillary sinus fluid is seen. The orbits appear normal. There are no acute fractures of the calvaria or scalp swelling. Impression: No acute intracranial hemorrhage, no evidence of acute territorial infarction or other acute intracranial disease process. ACT 112: Negative or not required by law. Electronically signed by: Gagandeep Fernandez M.D. 02/07/2024 2:18 PM Chest CTA 02/07/24 14:55 CT angio chest PE protocol CLINICAL HISTORY: PE TECHNIQUE: Multidetector row helical CT of the chest was performed with angiographic protocol. Coronal and sagittal reformations were obtained. Coronal and sagittal MIPS were obtained from the axial data set and were submitted for review. Automated dose lowering techniques and/or adjustment according to patient size were utilized for this exam. CT DOSE: 621.68 mGy.cm Comparison: Comparison is made to CT chest 08/02/2023 FINDINGS: Lungs and pleura: Diffuse centrilobular emphysema is seen most prominent in the upper lobes. No suspicious pulmonary nodules are seen. Heart and pericardium: Cardiomegaly is seen with biatrial enlargement. Atrial appendage occlusion device is seen. Pericardial effusion is seen. Vessels: No evidence of pulmonary embolism. Mediastinum and ari: Subcentimeter lymph nodes are seen. Chest wall and lower neck: Unremarkable. Abdomen: Unremarkable. Bones: Degenerative changes in the thoracic spine. Right rib dysplasia versus resection changes are again seen. IMPRESSION: 1. No evidence of pulmonary embolus. 2. Pericardial effusion has significantly enlarged from prior exam. No evidence of vena cava enlargement to suggest cardiac tamponade. 3. Cardiomegaly and emphysema as above. ACT 112: Negative or not required by law. Electronically signed by: Gagandeep Fernandez M.D. 02/07/2024 3:38 PM Discharge Plan Visit Data Chief Complaint: Shortness of Breath/Dyspnea ED Provider: Levar Jones Discharge Problem: Atrial fibrillation with rapid ventricular response, SOB (shortness of breath), Hypokalemia, Effusion, pericardium Patient Disposition: Being Evaluated by Hospitalist Forms Stand Alone Forms: My [facility] Prescriptions Prescriptions: No Action esomeprazole magnesium 40 mg capsule,delayed release(DR/EC) 40 mg PO QPM Qty: 90 3RF Trelegy Ellipta 100-62.5-25 mcg blister with device 1 inh inhalation DAILY Qty: 3 3RF metoclopramide HCl 10 mg tablet 10 mg PO TID fluticasone propionate [Flonase Allergy Relief] 50 mcg/actuation spray,suspension 2 spray intranasal DAILY PRN (Reason: Allergy Symptoms) Rx Instructions: administer into each nostril metoprolol succinate 25 mg tablet extended release 24 hr 25 mg PO BID Rx Instructions: ON HOLD Zyrtec 10 mg capsule 10 mg PO DAILY PRN (Reason: Allergy Symptoms) albuterol sulfate [Ventolin HFA] 90 mcg/actuation HFA aerosol inhaler 2 puff inhalation Q4H PRN (Reason: Shortness Of Breath) Qty: 3 3RF Prolia 60 mg/mL syringe 60 mg subcut Q6MO acetaminophen [Tylenol Extra Strength] 500 mg Tablet 500 mg PO Q6H PRN (Reason: Pain) clopidogrel 75 mg tablet 75 mg PO QAM Rx Instructions: TAKE 1 TABLET EVERY MORNING multivitamin Tablet 1 tab PO QAM losartan 50 mg tablet 50 mg PO BID levetiracetam [Keppra] 500 mg Tablet 500 mg PO BID nifedipine 30 mg tablet extended release 30 mg PO DAILY tramadol 50 mg Tablet 50 mg PO Q4H PRN (Reason: Pain) hydralazine 100 mg tablet 100 mg PO TID aspirin 81 mg Tablet,Chewable 81 mg PO DAILY Referrals Referrals: Becky Tavarez MD [Primary Care Provider] -
--- NOTE | 2024-02-07 13:58 | XRay Report ---
XR chest 1V portable CLINICAL HISTORY: weakness TECHNIQUE: Single frontal radiograph of the chest was obtained. Comparison: Comparison is made to chest radiograph 08/12/2023 FINDINGS: No lines and tubes are seen. Cardiomegaly is noted. The aortic arch is calcified. The lungs are clear . No evidence of pleural effusion or pneumothorax. IMPRESSION: No acute chest disease. ACT 112: Negative or not required by law. Electronically signed by: Gagandeep Fernandez M.D. 02/07/2024 1:56 PM
--- OUTSIDE RECORDS SUMMARY | 2024-02-07 14:03 | External Medical Summary | Summary of Care ---
Author Name Unknown Organization [facility] Address [address] [place] [address] Phone [phone] Care Team Providers Care Corrugator Operator Name Role Phone Becky Tavarez MD Primary Care Provider Encounter Details Date Type Department Care Team (Late st Contact Info) Description 01/30/2024 Result Scan Unspecified Department <No scans attached> Allergies Active Allergy Reactions Criticality Noted Date Comments Adhesive Tape 04/29/2014 rash Amlodipine 11/03/2022 Other reaction(s): fatigue/constipation Moxifloxacin Rash 11/01/2018 Forearms, palms, neck, anterior chest rash day 5 or 6 of oral avelox therapy around 2012 Neg skin testing and challenge on 11/14/18 Iodinated Contrast Media 04/29/2014 Throat closes , hives Penicillins Rash 04/29/2014 Yeast infection, rash in her twenties or 30's Sulfa Antibiotics 04/29/2014 Lip and facial swelling; rash in her twenties documented as of this encounter (statuses as of 02/05/2024) Medications Medication Sig Dispensed Refills Start Date End Date Status REGLAN 10 MG PO TABS 1 tab 3 times a day Active BENICAR 40 MG Tablet Take 1 Tablet by mouth in the morning. 04/12/2015 Active Esomeprazole Magnesium 40 MG CPDR Take 1 Capsule by mouth daily before breakfast. 06/22/2017 Active Ventolin HFA 108 (90 Base) MCG/ACT Inhalation Aerosol Solution as needed. 10/25/2022 Active Fluticasone Propionate 50 MCG/ACT Nasal Suspension (Flonase) Administer 1 [place] into nostril in the morning and 1 [place] before bedtime. 04/13/2022 Active Viactiv Calcium Plus D 650-12.5-40 MG-MCG Oral Tablet Chewable (Calcium-Vitamin D-Vitamin K) Take 2 Tablets by mouth in the morning. Active Vitamin D-3 25 MCG (1000 UT) Oral Capsule Take 1 Capsule by mouth in the morning. Active Cetirizine HCl 10 MG Oral Tablet (ZyrTEC Allergy) Take 1 Tablet by mouth in the morning. Active Trelegy Ellipta 100-62.5-25 MCG/ACT Aerosol Powder Breath Activated 09/06/2023 Active Keppra 500 MG Oral Tablet 1 Tablet. 11/16/2023 06/10/2024 Active NIFEdipine ER 30 MG Oral Tablet Extended Release 24 Hour (Adalat CC)Indications:HTN , goal below 140/90 Take 3 Tablets by mouth in the morning. 270 Tablet 3 01/03/2024 Active hydrALAZINE HCl 100 MG Oral TabletIndications: HTN, goal below 140/90 Take 1 Tablet by mouth in the morning and 1 Tablet at noon and 1 Tablet before bedtime. 360 Tablet 3 01/28/2024 Active documented as of this encounter (statuses as of 02/05/2024) Active Problems Problem Noted Date Diagnosed Date Allergy to multiple antibiotics 11/01/2018 Cataract of both eyes 11/01/2018 COPD exacerbation 04/19/2015 HTN, goal below 140/90 04/19/2015 Gastroesophageal reflux disease without esophagi tis 04/19/2015 Age-related osteoporosis wit hout current pathological fracture 04/19/2015 documented as of this encounter (statuses as of 02/05/2024) Resolved Problems Problem Noted Date Diagnosed Date Resolved Date Encounter for examination fo r normal comparison and control in clinical research program 10/07/2018 03/08/2020 Overview: DO NOT DELETE [facility] DETECT Study: Project # [id number], Senior Sustainability Advisor: Christiano Edwards, PhD. SUMMARY: Goal: Establish test characteristics (sensitivity, specificity, PPV, NPV) of a circulating tumor DNA (ctDNA)-based test for cancer. Hypothesis: Circulating tumor DNA (ctDNA) and elevated protein biomarkers (together, the marker panel) can be detected in asymptomatic individuals with early cancer. Specific Aim 1: Determine the prevalence of a positive marker panel test in a prospective clinical cohort of 10,000 asymptomatic women ages 65 to 75 years. Specific Aim 2: Determine the sensitivity, specificity, positive predictive value (PPV) and negative predictive value (NPV) of a marker panel test to identify histologically proven cancers that develop within 5-years of the marker panel evaluation. CONTACTS: During normal business hours, contact study staff at ; after hours Senior Sustainability Advisor via the [facility] mixing house operator . Please contact study team before resolving/deleting from patients problem list. Study phone number: [phone]. Diagnosis changed due to Research Module. Go to [employer] for study details. Encounter for examination fo r normal comparison and control in clinical research program 10/07/2018 04/06/2022 Overview: DO NOT DELETE - [facility] Study: Project # [id number], Senior Sustainability Advisor: Brandin Goyal, MS, MPH. SUMMARY: Goal: Establish test characteristics (sensitivity, specificity, PPV, NPV) of a circulating tumor DNA (ctDNA)-based test for cancer. - Hypothesis: Circulating tumor DNA (ctDNA) and elevated protein biomarkers (together, the marker panel) can be detected in asymptomatic individuals with early cancer. - Specific Aim 1: Determine the prevalence of a positive marker panel test in a prospective clinical cohort of 10,000 asymptomatic women ages 65 to 75 years. - Specific Aim 2: Determine the sensitivity, specificity, positive predictive value (PPV) and negative predictive value (NPV) of a marker panel test to identify histologically proven cancers that develop within 5-years of the marker panel evaluation. - CONTACTS: During normal business hours, contact study staff at ; after hours Senior Sustainability Advisor via the [facility] mixing house operator . - Please contact study team before resolving/deleting from patients problem list. Study phone number: [phone]. Diagnosis changed due to Research Module. Go to [employer]ios for study details. documented as of this encounter (statuses as of 02/05/2024) Immunizations Name Administration Dates Next Due COVID-19 mRNA, LNP-s, No Pre serve, 2-Dose Series (Moderna) 10/01/2020,09/03/2020 Pneumococcal Polysaccharide PPV23 (Pneumovax) Seasonal Influenza, Quadrivalent, No Preserve, P eds 04/20/2018 Seasonal Influenza, Trivalent, Adjuvanted, 65+ y rs 03/15/2023 Zoster Vaccine Recombinant (Shingrix) 09/16/2018 documented as of this encounter Social History Tobacco Use Types Packs/Day Years Used Date Smoking Tobacco: Former Cigarettes 1 45 0 04/10/1969 - 04/10/2014 Smokeless Tobacco: Never Comments:no passive smoke Alcohol Use Standard Drinks/Week Comments Yes 0 (1 standard drink = 0.6 oz pur e alcohol) 4 drinks/week Sex and Gender Information Value Date Recorded Sex Assigned at Female 05/03/2022 9:28 AM EDT Gender Identity Female 05/03/2022 9:28 AM EDT Sexual Orientation Straight 05/03/2022 9: 28 AM EDT Job Start Date Occupation Industry Not on file Not on file Not on file documented as of this encounter Plan of Treatment Upcoming Encounters Date Type Department Care Team (Late st Contact Info) Description 02/27/2024 2:30 PM EDT [facility] [place] [address] Zoe Otto CRNP [address] [place] [address] 03/05/2024 10:30 AM EDT [facility] [place] [address] Christiano Del Castillo MD [address] [place] [address] 04/29/2024 9:30 AM EDT Office Visit [facility] [address] [facility] [place] [address] Zoe Otto CRNP [address] [place] [address] Health Maintenance Due Date Last Done Comments Depression Screening 1962 Albumin/Creatinine Ratio 1968 Alpha-1 Antitrypsin 1968 Hepatitis C Screening 1968 DTaP,Tdap,and Td Vaccines (1 - Tdap) 1969 Mammogram 1990 Cologuard 1995 Colonoscopy 1995 Colorectal Cancer Screening 1995 Fecal Occult Blood Test 1995 Sigmoidoscopy 1995 Lung Cancer Screening 2000 *COPD SEVERITY VERIFIED BY PFT 04/22/2015 *CXR OR CT FOR COPD EVER 06/29/2022 *BISPHONATE OR OTHER ACCEPTABLE MEDICATION NEEDED FOR OSTEOPOROSIS (REFER TO SMARTSET #1146) 11/09/2023 Influenza Vaccine (FLU shot) (#1) 2024 03/15/2023, 05/02/2022, 04/19/2020, Additional history exists DXA Scan 04/11/2024 04/11/2022, 08/07/2019 GFR 11/30/2024 12/01/2023, 11/05, 11/17/2023, Additional history exists O2 ASSESSMENT COMPLETED IN PAST YEAR FOR COPD 01/02/2025 01/03/2024 Lipid Panel 12/22/2026 12/22/2021 Zoster Vaccines Completed 01/10/2019, 09/06, 09/09/2018, Additional history exists Pneumococcal Vaccine: 65+ Years Completed 06/13/2022, 08/06/2013, 08/06/2007 COVID-19 Vaccine Completed 10/24/2023, , 10/01/2020, Additional history exists VITAMIN D LEVEL ONCE IN A LIFETIME-USE SMARTSET# 22224 Completed 11/06/2023, 11/07/2022, 12/22/2021, Additional history exists GARDASIL-HPV IMMUNIZATION SERIES Aged Out No longer eligible based on patient's age to complete this topic Hepatitis B Aged Out No longer eligi ble based on patient's age to complete this topic MENINGOCOCCAL (MENACTRA/MENVEO) Aged Out No longer eligible based on patient's age to complete this topic documented as of this encounter Medical Devices Implanted Type Area Upper Trimmer Device Identifier Shelf Expiration Date Model / Serial / Lot Lens Intraoc 19.0 - [id number] - [id number] Implanted:Qty: 1 on 01/02/2019 by Davey Tang MD at [facility] Left: Eye [employer] 06/05/2023 [id number] / [id number] / Lens Intraoc 21.0 - [id number] - [id number] Implanted:Qty: 1 on 01/21/2019 by Davey Tang MD at [facility] Right: Eye [employer] 08/05/2023 [id number] / [id number] / [id number] documented as of this encounter Procedures Procedure Name Priority Date/Time Associated Diagnosis Comments CARDIAC CATH SCANNED RESULT 01/30/2024 EKG SCANNED RESULT 01/30/2024 documented in this encounter Results * EKG SCANNED RESULT (01/30/2024) 01/30/2024 No Physician Data Unknown EKG * CARDIAC CATH SCANNED RESULT (01/30/2024) 01/30/2024 No Physician Data Unknown CARD CATH documented in this encounter Care Teams Corrugator Operator Relationship Specialty Start Date End Date Becky Tavarez MD [address] [facility] [address] [place] [address] PCP - General Family Medicine 08/01/21 documented as of this encounter
--- OUTSIDE RECORDS SUMMARY | 2024-02-07 14:04 | External Medical Summary | Continuity of Care Document ---
Author Name Unknown Organization [facility] [address] Address [address] [place], [place] [id number] Care Team Providers Care Bolt Sorter Name Role Phone Becky Tavarez Primary Care Physician [phone] [id number]s): 01/20/24 - 01/20/24 [facility] [address] [facility] [address] [facility] [place], [phone] Encounter Diagnosis Diarrhea, unspecified(Final) - Generalized abdominal pain(Final) - Fever, unspecified(Final) - Discharge Disposition: Home or Self Care Attending Physician: ATTILA Langston Jessica A Referring Physician: ATTILA Langston Jessica A Allergies, Adverse Reactions, Alerts Substance Criticality Severity Reaction Reaction Severity Status cefuroxime c. diff infection A ctive Avelox yeast infection Acti ve Adhesive bandage Contact dermatitis. Active Mold upper resp symptoms Active IVP dye Unable to assess criticality Mild hives Active amLODIPine fatigue/constip at ion Active Allergy Not found in Search 1 sneezing, nasal drainage unknown Active 1unknown enviornmental allergy Immunizations Given and Recorded Vaccine Date Status Refusal Reason RSV Vaccine Unspecified 03/06/23 Recorded pneumococcal 20-valent conjugate vaccine 06/13/22 Given influenza virus vaccine, inactivated 1 05/02/22 Re corded influenza virus vaccine, inactivated 04/19/20 Give n influenza virus vaccine, inactivated 05/02/18 Give n influenza virus vaccine, inactivated 05/02/18 Cristino rded influenza virus vaccine, inactivated 04/16/17 Give n SARS-CoV-2 (COVID-19) mRNA-1273 vaccine 2 11/04/21 Recorded SARS-CoV-2 (COVID-19) mRNA-1273 vaccine 05/28/21 R ecorded SARS-CoV-2 (COVID-19) mRNA-1273 vaccine 3 10/01/20 Recorded SARS-CoV-2 (COVID-19) mRNA-1273 vaccine 09/03/20 R ecorded zoster vaccine, inactivated 4 01/10/19 Recorded zoster vaccine, inactivated 5 09/16/18 Recorded zoster vaccine, inactivated 6 09/09/18 Recorded pneumococcal 23-valent vaccine 7 08/06/13 Recorded pneumococcal 23-valent vaccine 8 08/06/07 Recorded tetanus/diphtheria/pertuss, acel (Tdap) 9 03/21/13 Recorded zoster vaccine live 10 10/26/11 Recorded influenza virus vaccine, H1N1 11 06/25/09 Recorded 1Result Comment: [facility] 2Result Comment: 2021-11-28: Historical information-source unspecified 3Result Comment: 2020-12-29: Historical information-source unspecified 4Result Comment: 2020-12-29: Historical information-source unspecified 5Result Comment: 2020-12-29: Historical information-source unspecified 6Result Comment: 2020-12-29: Historical information-source unspecified 7Result Comment: 2020-12-29: Historical information-source unspecified 8Result Comment: 2020-12-29: Historical information-source unspecified 9Result Comment: 2020-12-29: Historical information-source unspecified 10Result Comment: 2020-12-29: Historical information-source unspecified 11Result Comment: 2020-12-29: Historical information-source unspecified Medications albuterol 90 mcg/inh inhalation powder Start: 12/11/23 10:07:00 AM EDT Start Date: 12/11/23 Status: Ordered Eliquis 5 mg oral tablet Start: 12/20/23 10:54:00 AM EDT, 1 tab, PO, bid, Disp# 180 tab, Refills: 2, Pharmacy: [facility] Start Date: 12/20/23 Stop Date: 09/15/24 Status: Ordered esomeprazole 40 mg oral delayed release capsule Start: 09/07/23 7:42:00 AM EST, 1 cap, PO, Daily, Disp# 90 cap, Refills: 3, [facility] Start Date: 09/07/23 Status: Ordered fluticasone 50 mcg/inh nasal spray Start: 12/13/15 12:51:00 PM EDT, 1 spray, each nostril, bid, PRN: allergy symptoms Start Date: 12/13/15 Status: Ordered hydrALAZINE 100 mg oral tablet Start: 12/17/23 10:12:00 AM EDT, 1 tab, PO, tid, Disp# 90 tab, Refills: 5, Pharmacy: [facility] Start Date: 12/17/23 Status: Ordered Keppra 500 mg oral tablet Start: 12/13/23 10:58:00 AM EDT, 1 tab, PO, bid, Disp# 180 tab, Refills: 1, [facility] Start Date: 12/13/23 Stop Date: 06/10/24 Status: Ordered losartan 50 mg oral tablet Start: 12/11/23 10:23:00 AM EDT, 1 tab, PO, bid, Disp# 180 tab, Refills: 1, [facility] Start Date: 12/11/23 Status: Ordered metoclopramide 10 mg oral tablet Start: 08/13/23 1:20:00 PM EST, 1 tab, PO, tid, Disp# 360 tab, Refills: 2, Pharm[facility]: [facility] Start Date: 08/13/23 Status: Ordered metoprolol succinate 50 mg oral tablet, extended release Start: 12/17/23 10:19:00 AM EDT, 1 tab, PO, bid, Disp# 60 tab, Refills: 6, Note to Pharmacy: disreguard previous RX for 25mg, Pharmacy: [facility] Start Date: 12/17/23 Status: Ordered multivitamin Start: 01/01/24 10:22:00 AM EDT, 1 tab, PO, Daily Start Date: 01/01/24 Status: Ordered NIFEdipine 30 mg oral tablet, extended release Start: 12/19/23 4:50:00 PM EDT, 3 tab, PO, Daily, Disp# 90 tab, Refills: 6, [facility]: [id number] Start Date: 12/19/23 Status: Ordered predniSONE 50 mg oral tablet Start: 01/01/24 2:34:00 PM EDT, See Instructions, Disp# 3 tab, Refills: 1, Take 1 tablet 13 hours, 7hours and 1 hour prior to procedure, Pharmacy: [facility] Start Date: 01/01/24 Status: Ordered traMADol 50 mg oral tablet Start: 12/11/23 10:08:00 AM EDT, 1 tab, PO, q4h, PRN: as needed for pain Start Date: 12/11/23 Status: Ordered Trelegy Ellipta 100 mcg-62.5 mcg-25 mcg/inh inhalation powder Start: 09/24/23 10:44:00 AM EST, 1 puff, inhaled, Daily Start Date: 09/24/23 Status: Ordered vancomycin oral capsule 125 mg Start: 01/22/24 7:44:00 AM EDT, 1 cap, PO, q6h, Disp# 40, X 10 day, Stop: 02/01/24 7:44:00 AM EDT, Pharmacy: [facility] Start Date: 01/22/24 Stop Date: 02/01/24 Status: Ordered Vitamin B Complex Start: 01/01/24 10:23:00 AM EDT, See Instructions, Note to Pharmacy: Vitamin B 3 (50mcg/2000IU) daily Start Date: 01/01/24 Status: Ordered ZyrTEC 10 mg oral tablet Start: 04/12/23 1:38:00 PM EDT, 1 tab, PO, Daily, PRN: as needed for allergy symptoms Start Date: 04/12/23 Status: Ordered Problem List Condition Confirmation Course Effective Dates Status H ealth Status Informant Adult pulmonary Langerhans cell histiocytosis Confirmed Active Copy of advanced directive obtained Confirmed Active Atherosclerosis of aorta 1 Confirmed Active PAT (paroxysmal atrial tachycardia) Confirmed Active Bacterial lobar pneumonia Confirmed Active Callus Confirmed Active Radiculopathy, cervical Confirmed Active Chronic constipation Confirmed Active COPD (chronic obstructive pulmonary disease) Confirmed Active Diabetes mellitus with diabetic neuropathy Confirmed Active Diabetes Confirmed Active Dupuytren's contracture Confirmed Active Dupuytren's disease Confirmed Active Dyspnea Confirmed Active Chronic bronchitis with COPD (chronic obstructive pulmonary disease) Confirmed Active Epidermal cyst Confirmed Active FAMILY HISTORY OF OTHER SPECIFIED MALIGNANT NEOPLASM 2 Confirmed Active Right foot pain Confirmed Active Ganglion/synovial cyst - hand Confirmed Active Ganglion cyst Confirmed Active H/O hypercalcemia Confirmed Active History of squamous cell carcinoma of skin Confirmed Active HTN (hypertension) Confirmed Active IFG (impaired fasting glucose) Confirmed Active Intermittent urinary incontinence Confirmed Active 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, etiology likely secondary to cardioembolic via atrial flutter not on anticoagulation Confirmed Active Melanocytic nevus of trunk Confirmed Active Twitch Confirmed Active Muscular dystrophy Confirmed Active Neck pain Confirmed Active Neuroendocrine tumor Confirmed Active JG on CPAP Confirmed Active Tinea unguium Confirmed Active Osteoporosis Confirmed Active Peripheral vascular disease 3 Confirmed Active Plantar fasciitis, left Confirmed Active PAC (premature atrial contraction) Confirmed Active Reflux Confirmed Active Seborrheic keratosis Confirmed Active Sleep apnea Confirmed Active Apnea, sleep Confirmed Active Sun-damaged skin Confirmed Active 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 OTHER FINDINGS: Atherosclerosis of the abdominal aorta and its branches 2mother had ssc and brother had bcc. PET CT OTHER FINDINGS: Atherosclerosis of the abdominal aorta and its branches including peripheral vascular disease but without significant regions of ectasia. 4see outside note 03/14/22 Endocrinology page 6 Procedures Procedure Date Related Diagnosis Body Site Status CT of abdomen and pelvis 1 01/22/24 Completed Chest X-ray 2 12/12/23 Completed Mammogram 3 07/26/23 Completed Chest x-ray 4 03/01/23 Completed Colonoscopy 5, 6 09/18/22 Complete d Mammogram 7 07/20/[address] 8 05/11/[address] of abdomen and pelvis 9 05/11/21 Completed Colonoscopy 10, 11 02/22/21 Comple carol Shave biopsy and cauterisation of skin 02/11/20 Completed Shave biopsy and cauterizati on of skin 12 07/29/19 Completed Shave biopsy and cauterization of skin 05/21/17 Completed Punch biopsy 02/22/15 Completed Punch biopsy of skin 02/10/15 Comp leted Bowel obstruction 04/2014 Complet ed Excision of basal cell carcinoma 01/14/14 Completed Shave biopsy of skin 12/30/13 Comp leted Sinus surgery 09/24/13 Completed Shave biopsy of skin 09/28/11 Comp leted Colonoscopy 13 07/20/05 Completed Biopsy of lung Completed Dental implant system Com pleted Excision 14 Completed Hysterectomy Completed Miscellaneous 15 Complete d Procedure 16 Completed 11. Findings are consistent with a nonspecific pancolitis. 2. The colon is normal in caliber. No intraperitoneal air seen. 3. Cardiomegaly and advanced emphysema. 4. Additional findings as above. 2No acute chest disease. 3[facility] Impression: ACR BI-RADS CATEGORY 2: BENING 1. No evidence of malignancy 4[facility] Impression: 1. Cardiomegaly without acute process 5Five 3 to 6 mm polyps in the rectum, sigmoid colon and in the transverse colon, removed with a coldsnare. Resected and retrieved. Diverticulosis in the sigmoid colon. Non bleeding internal hemorrhoids. 6next scope in 3 yrs. 7No mammographic evidence of malignancy. 1 year screening mammogram is recommended. 81. Emphysema without acute intrathoracic abnormality. 2. No adenopathy or evidence of pulmonary metastatic disease. 3. Prior granulomatosis disease. 91. No evidence for metastatic disease within the abdomen or pelvis. 2. Right sided nephrolithiasis. No ureteral stones. No hydronephrosis. 3. No definite bowel wall thickening or obstruction. 4. Colonic diverticulosis. No evidence for acute diverticulosis. 5. Moderate well formed stool seen within the colon. 6. Emphysema. 7. Additonal findings as described above. 10COLO to cecum, redundant colon, random AC and sigmoid bx taken, rectal polyps times 3 each 5 mm 2 hot snared and one cold snared. 11Pathology showed 2 tubular adenomas and 1 neuroendocrine tumor of rectum. Repeat in 1 years. 12upper back 13Colonoscopy normal- Repeat in 10 years. 14left palm cyst 15foot surgery 16sinoplastey Results Orders for Microbiology Reports Name Date C. difficile toxin ag (C DIFF TOXIN AG) 01/21/24 C difficile Toxin Gene PCR Assay. (C DIF FICILE TOXIN) 01/21/24 C difficile Toxin Gene PCR Assay. (C DIF FICILE TOXIN) 01/20/24 Enteric Pathogen Panel, Stool (ENTERIC P ATHOGEN PANEL) 01/20/24 Parasite Panel, Stool (PARASITE PANEL) Microbiology Reports TEST:C. difficile toxin ag STATUS:Auth (Verified) BODY SITE: SOURCE:Stool COLLECTED DATE/TIME:01/21/24 7:17 PM Status FINAL 01/21/2024 ORGANISM:Positive for Clostridium difficile toxin antigen Susceptibilty: Positive for Clostridium difficile toxin antigen Tested Drug TEST:C.Diff Toxin STATUS:Auth (Verified) BODY SITE: SOURCE:Stool COLLECTED DATE/TIME:01/21/24 7:12 PM Status FINAL 01/21/2024 ORGANISM:Positive for Clostridium difficile toxin genes Susceptibilty: Positive for Clostridium difficile toxin genes Tested Drug TEST:C.Diff Toxin STATUS:Auth (Verified) BODY SITE: SOURCE:Stool COLLECTED DATE/TIME:01/20/24 9:00 AM Culture DUPLICATE REQUEST REQUEST CREDITED TEST:Parasite Panel STATUS:Auth (Verified) BODY SITE: SOURCE:Stool COLLECTED DATE/TIME:01/20/24 9:00 AM Status FINAL 01/21/2024 TEST:Enteric Pathogen Panel STATUS:Auth (Verified) BODY SITE: SOURCE:Stool COLLECTED DATE/TIME:01/20/24 9:00 AM Culture REQUEST CREDITED NO SAMPLE RECEIVED PER REQUEST OF [address] Social History Social History Type Response Tobacco Former smoker, Smoke less tobacco use: Former smokeless tobacco user, quit more than 1 year ago. Smoking Status Former Smoker, quit > 1 yr Sex Female Patient Care team information Care Team Personnel Name: Yohannes Brody Kimberly Position: Pharmacist BCMA Member Role: Pharmacy - Lifetime Address: Address: [address] [address] Name: MD Daysi, Becky Millan Position: Physician - Family Med Member Role: Primary Care Provider Address: Address: [address] [facility] [address] [place] [address] [place] Name: MD Jayda, Segun Giles Position: Physician - Sports Medicine [place] Member Role: Lifetime Relationship Address: Address: [address] [address] Care Team Related Persons Name: DM MATTA Address: home [address] [place] [address], [phone]
--- OUTSIDE RECORDS SUMMARY | 2024-02-07 14:04 | External Medical Summary | Continuity of Care Document ---
Author Name Unknown Organization [facility] Address [address] [place] [phone] Care Team Providers Care Power Generation Engineer Name Role Phone Becky Tavarez Primary Care Physician [phone] Encounter [facility] [phone] Date(s): 01/30/24 - 01/31/[address] [id number] [phone] Encounter Diagnosis Atrial fibrillation(Discharge Diagnosis) - 01/30/24 Unspecified atrial fibrillation(Final) - Encounter for examination for normal comparison and control in clinical research program(Final) - Type 2 diabetes mellitus without complications(Final) - Emphysema, unspecified(Final) - Essential (primary) hypertension(Final) - Muscular dystrophy, unspecified(Final) - Unspecified atrial flutter(Final) - Gastro-esophageal reflux disease without esophagitis(Final) - Obstructive sleep apnea (adult) (pediatric)(Final) - Radiographic dye allergy status(Final) - terminologist (current) use of anticoagulants(Final) - Personal history of transient ischemic attack (TIA), and cerebral infarction without residual deficits(Final) - Personal history of urinary calculi(Final) - Personal history of other malignant neoplasm of skin(Final) - Personal history of nicotine dependence(Final) - Discharge Disposition: Home or Self Care Attending Physician: MD Ingram Moses Admitting Physician: MD Ingram Moses Referring Physician: MD Ingram Moses Allergies, Adverse Reactions, Alerts Substance Criticality Severity Reaction Reaction Severity Status cefuroxime c. diff infection A ctive Avelox yeast infection Acti ve Adhesive bandage Contact dermatitis. Active Mold upper resp symptoms Active IVP dye Unable to assess criticality Mild hives Active amLODIPine fatigue/constip at ion Active Allergy Not found in Search 1 sneezing, nasal drainage unknown Active 1unknown enviornmental allergy Functional Status 01/31/24 History of Fall in Last 3 Months [place] N o Presence of Secondary Diagnosis [place] Ye s Use of Ambulatory Aid [place] None/bedrest /nurse assist IV/Heparin Lock Fall Risk [place] No Gait/Transferring Fall Risk [place] Normal /bedrest/immobile Mental Status Fall Risk [place] Oriented t o own ability [place] Fall Risk Score 15 Liam Fall Risk No Risk 01/30/24 Neurological Symptoms None Facial Symmetry Symmetric Swallowing Difficulty None Level of Consciousness Neuro Alert Hallucinations Present None Speech Pattern Clear 01/30/24 ADLs Minimal assistance Gait Steady Immunizations Given and Recorded Vaccine Date Status [...] vaccine, H1N1 11 06/25/09 Recorded 1Result Comment: [facility] 2Result Comment: 2021-11-28: Historical information-source unspecified [...] AM EDT Start Date: 12/11/23 Status: Ordered aspirin 81 mg oral tablet, chewable Start: 01/31/24 10:24:00 AM EDT, 1 tab, PO, Daily Start Date: 01/31/24 Status: Ordered clopidogrel 75 mg oral tablet Start: 01/30/24 12:53:00 PM EDT, 1 tab, PO, Daily, Disp# 30 tab, Refills: 2, Note to Pharmacy: [id number]; [facility] Bed 13, Pharmacy: [facility] [place] Start Date: 01/30/24 Status: Ordered esomeprazole 40 mg oral delayed release capsule Start: 09/07/23 7:42:00 AM EST, 1 cap, PO, Daily, Disp# 90 cap, Refills: 3, [facility]acy: [facility] Start Date: 09/07/23 Status: Ordered fluticasone 50 mcg/inh nasal spray Start: 12/13/15 12:51:00 PM EDT, 1 spray, each nostril, bid, PRN: allergy symptoms Start Date: 12/13/15 Status: Ordered hydrALAZINE 100 mg oral tablet Start: 12/17/23 10:12:00 AM EDT, 1 tab, PO, tid, Disp# 90 tab, Refills: 5, Pharmacy: [id number] Start Date: 12/17/23 Status: Ordered Keppra 500 mg oral tablet Start: 12/13/23 10:58:00 AM EDT, 1 tab, PO, bid, Disp# 180 tab, Refills: 1, Pharmacy: [facility] Start Date: 12/13/23 Stop Date: 06/10/24 Status: Ordered losartan 50 mg oral tablet Start: 12/11/23 10:23:00 AM EDT, 1 tab, PO, bid, Disp# 180 tab, Refills: 1, [facility] Start Date: 12/11/23 Status: Ordered metoclopramide 10 mg oral tablet Start: 08/13/23 1:20:00 PM EST, 1 tab, PO, tid, Disp# 360 tab, Refills: 2, Pharmacy: [facility] Start Date: 08/13/23 Status: Ordered metoprolol succinate (ER) 25 mg, XL tablet, PO, ONCE, Routine, 01/31/24 10:00:00 AM EDT, 01/31/24 9:04:27 AM EDT, Extended Release product, 01/31/24 9:04:00 EDT Notes: SWALLOW TABLETS WHOLE. DO NOT CRUSH OR CHEW. Scored tablets may be divided in half. Start Date: 01/31/24 Stop Date: 01/31/24 Status: Completed metoprolol succinate (ER) 50 mg, XL tablet, PO, 01/31/24 9:00:00 AM EDT, 01/31/24 8:37:02 AM EDT, 01/30/24 12:43:00 EDT Start Date: 01/31/24 Stop Date: 01/31/24 Status: Completed metoprolol succinate 25 mg oral tablet, extended release Start: 01/31/24 9:13:00 AM EDT, 1 tab, PO, bid, Disp# 90 tab, Refills: 3, Pharmacy: [facility] Start Date: 01/31/24 Status: Ordered multivitamin Start: 01/01/24 10:22:00 AM EDT, 1 tab, PO, Daily Start Date: 01/01/24 Status: Ordered NIFEdipine 30 mg oral tablet, extended release Start: 12/19/23 4:50:00 PM EDT, 3 tab, PO, Daily, Disp# 90 tab, Refills: 6, Pharmacy: [id number] Start Date: 12/19/23 Status: Ordered traMADol 50 mg oral tablet Start: 12/11/23 10:08:00 AM EDT, 1 tab, PO, q4h, PRN: as needed for pain Start Date: 12/11/23 Status: Ordered Trelegy Ellipta 100 mcg-62.5 mcg-25 mcg/inh inhalation powder Start: 09/24/23 10:44:00 AM EST, 1 puff, inhaled, Daily Start Date: 09/24/23 Status: Ordered ZyrTEC 10 mg oral tablet [...] 4see outside note 03/14/22 Endocrinology page 6 Diagnosis Diagnosis Type Effective Dates Health Status Clinical Service Informant Atrial fibrillation Discharge Diagnosis 01/30/24 Non-Specified Procedures Procedure Date Related Diagnosis Body Site [...] findings as above. 2No acute chest disease. 3[facility] Impression: ACR BI-RADS CATEGORY 2: BENING 1. No evidence of malignancy 4[facility] Impression: 1. Cardiomegaly without acute process 5Five [...] 14left palm cyst 15foot surgery 16sinoplastey Results Laboratory List Name Date Urine Analysis w/ Reflexed Microscopic. (Urinalysis w/ Reflexed Microscopic.) 01/31/24 Complete Blood Count w Differential (CBC w Platelets and Diff) 01/31/24 ACT, Celite, by IStat ([facility] [place]) (ACT CE LITE ISTAT (CATH)) 01/30/24 Basic Metabolic Panel 01/30/24 Complete Blood Count (CBC w Platelets) Most recent to oldest [Reference Range]: 1 2 eGFR CKD-EPI [>60 mL/min/1.73 m2] 80 mL/ min/1.73 m2 (01/30/24 6:37 AM) Estimated CrCl 58.28 mL/min (01/30/24 7:18 AM) MPV [9.0-12.2 fL] 9.7 fL (01/31/24 5:15 AM) 9.0 fL (01/30/24 6:37 AM) Immature Gran% 1.0 % (01/31/24 5:15 AM) Neut% 78.7 % (01/31/24 5:15 AM) Lymph% 11.9 % (01/31/24 5:15 AM) Esmeralda% 8.2 % (01/31/24 5:15 AM) Baso% 0.1 % (01/31/24 5:15 AM) Eos% 0.1 % (01/31/24 5:15 AM) Immat Gran, Abs [0-0.4 K/uL] 0.14 K/uL (01/31/24 5:15 AM) Neut, Abs [2.0-7.7 K/uL] 11.19 K/uL *HI* (01/31/24 5:15 AM) Lymph, Abs [1.0-3.4 K/uL] 1.69 K/uL (01/31/24 5:15 AM) Esmeralda, Abs [0-1.0 K/uL] 1.16 K/uL *HI* (01/31/24 5:15 AM) Baso, Abs [0-0.1 K/uL] 0.02 K/uL (01/31/24 5:15 AM) Eos, Abs [0-0.5 K/uL] 0.01 K/uL (01/31/24 5:15 AM) Type of Diff: AUTO (01/31/24 5:15 AM) RDW [11.5-14.2 %] 13.0 % (01/31/24 5:15 AM) 12.6 % (01/30/24 6:37 AM) Calcium Oxalate Crystal (u) FEW (01/31/24 8:14 AM) Squamous Epithelial Cells (u) FEW (01/31/24 8:14 AM) Anion Gap [5-14 mmol/L] 13 mmol/L (01/30/24 6:37 AM) Bact (u) [NONE-NONE] NONE (01/31/24 8:14 AM) Bili (u) [NEG] NEGATIVE (01/31/24 8:14 AM) BUN [6-23 mg/dL] 13 mg/dL (01/30/24 6:37 AM) Ca [8.4-10.2 mg/dL] 10.2 mg/dL (01/30/24 6:37 AM) Cl- [98-107 mmol/L] 100 mmol/L (01/30/24 6:37 AM) HCO3 [22-29 mmol/L] 23 mmol/L (01/30/24 6:37 AM) Cret [0.60-1.00 mg/dL] 0.78 mg/dL (01/30/24 6:37 AM) Glu [74-109 mg/dL] 148 mg/dL 1 *HI* (01/30/24 6:37 AM) Hct [35-44 %] 36.2 % (01/31/24 5:15 AM) 41.2 % (01/30/24 6:37 AM) Hgb [11.7-15.0 g/dL] 12.0 g/dL (01/31/24 5:15 AM) 13.7 g/dL (01/30/24 6:37 AM) K [3.5-5.1 mmol/L] 4.6 mmol/L (01/30/24 6:37 AM) Ketones [NEG mg/dL] NEGATIVE mg/dL (01/31/24 8:14 AM) Leuk Est [NEG] SMALL *Abnormal* (01/31/24 8:14 AM) MCH [28-33 pg] 31.9 pg (01/31/24 5:15 AM) 31.4 pg (01/30/24 6:37 AM) MCHC [32-36 g/dL] 33.1 g/dL (01/31/24 5:15 AM) 33.3 g/dL (01/30/24 6:37 AM) MCV [81-96 fL] 96.3 fL *HI* (01/31/24 5:15 AM) 94.3 fL (01/30/24 6:37 AM) Na [136-145 mmol/L] 136 mmol/L (01/30/24 6:37 AM) Nitrite (u) [NEG] NEGATIVE (01/31/24 8:14 AM) Plts [150-350 K/uL] 362 K/uL *HI* (01/31/24 5:15 AM) 390 K/uL *HI* (01/30/24 6:37 AM) RBC [3.90-5.00 M/uL] 3.76 M/uL *LOW* (01/31/24 5:15 AM) 4.37 M/uL (01/30/24 6:37 AM) ACT (Celite), POC [74-125 seconds] 228 s econds *HI* (01/30/24 9:29 AM) Appear (u) CLEAR (01/31/24 8:14 AM) Color (u) YELLOW (01/31/24 8:14 AM) Glu (u) [NEG mg/dL] NEGATIVE mg/dL (01/31/24 8:14 AM) Hgb (u) [NEG] NEGATIVE (01/31/24 8:14 AM) pH (u) [5.0-8.0 unit] 5.0 unit (01/31/24 8:14 AM) Prot (u) [NEG mg/dL] NEGATIVE mg/dL (01/31/24 8:14 AM) RBC (u) [0-4 /HPF] 0-4 /HPF (01/31/24 8:14 AM) Urobili [0.1-1.0 EU/dL] 0.1-1.0 EU/dL (01/31/24 8:14 AM) SG [1.005-1.030] 1.016 (01/31/24 8:14 AM) WBC (u) [0-4 /HPF] 30-49 /HPF (01/31/24 8:14 AM) WBC [4.0-10.4 K/uL] 14.21 K/uL *HI* (01/31/24 5:15 AM) 8.08 K/uL (01/30/24 6:37 AM) 1Result Comment: ADA recommendation for FASTING Serum/Plasma Glucose: Normal: 70-100 mg/dL Prediabetes: 100-125 mg/dL Diabetes: 126 mg/dL or higher Radiology Reports * Exam Date Time Procedure Performing Provider Status 01/31/24 9:05 AM Echo TransTHORacic TTE Limited Elana Lobo; Final Notes: (Echo TransTHORacic TTE Limited) Reason For Exam: s/p LAAO w/ WM FLex 31mm Echo TransTHORacic TTE Limited Report Signatures Finalized by Dr. Bruno Duke MD on 01/31/2024 11:23 AM Promoted to Fellow by Dr. Timi Graham MD on 01/31/2024 10:14 AM [place] Act 112: No-No further action needed Summary 1. Normal left ventricular size and systolic function without regional wall motion abnormalities. 2. Normal systolic function, estimated ejection fraction 65-70%. 3. No left ventricular hypertrophy. 4. Inconclusive data to evaluate diastolic function. 5. Normal right ventricular size and function. 6. Mild to moderate circumferential pericardial effusion WITHOUT evidence of tamponade. 7. Insufficient data for estimation of pulmonary artery systolic pressures. 8. Compared to previous study from 11/12/23, there is mild to moderate pericardial effusion without evidence of tamponade. Patient Info Name: DANIELLE MATTA Age: 73 years : 1950 Gender: Female Ht: 160 cm Wt: 65 kg BSA: 1.71 m2 HR: 56 bpm BP: 152 / 69 mmHg Heart Rhythm: Sinus Rhythm Technical Quality: Technically difficult study, Fair Exam Date: 01/31/2024 8:35 AM Exam Location: [place] [address] Patient Status: Inpatient Staff Ordering Physician: Jillian Marquez Law Researcher: Elana Lobo RDCS Attending Physician: Antelmo Ingram ([facility]) Study Info [facility] [id number] - [id number] [phone] [id number] - Indications - s/p LAAO w/ WM FLex 31mm Z136 - Encounter for screening for cardiovascular disorders Procedure(s) * A limited two-dimensional transthoracic echocardiogram was performed. * Color Doppler was performed. * Limited spectral Doppler was performed. Exam Type: Cardiac Basic Left Ventricle Normal left ventricular size and systolic function without regional wall motion abnormalities. Normal systolic function, estimated ejection fraction 65-70%. No regional wall motion abnormalities. No left ventricular hypertrophy. Inconclusive data to evaluate diastolic function. Right Ventricle Normal right ventricular size and function. Left Atrium Severely dilated left atrium size. Status post 31 mm Watchman FLX left atrial appendage occlusion, not well visualized. Right Atrium Normal right atrial size. Aortic Valve Structurally unremarkable aortic valve with no significant flow abnormalities. Pulmonic Valve Unremarkable pulmonic valve. Mitral Valve Unremarkable mitral valve. Tricuspid Valve Unremarkable tricuspid valve. Pericardium/Pleural Mild to moderate circumferential pericardial effusion WITHOUT evidence of tamponade. Inferior Vena Cava Normal IVC size with reduced inspiratory collapse. Aorta Normal aortic root. Left Ventricular Outflow Tract Name Value Normal LVOT 2D LVOT Diameter 1.8 cm Tricuspid Valve Name Value Normal TV Regurgitation Doppler TR Peak Velocity 2.28 m/s <=2.80 Estimated PAP/RSVP RA Pressure 8 mmHg <=5 PA Systolic Pressure 29 mmHg <40 Aorta Name Value Normal Ascending Aorta Sinus of Valsalva Diameter 2.8 cm 2.7-3.3 Sinus of Valsalva Index 1.64 cm/m2 1.60-2.00 Prox Asc Ao Diameter 3.0 cm 2.3-3.1 Prox Asc Ao Diameter Index 1.72 cm/m2 1.30-1.90 Venous Name Value Normal IVC/SVC IVC Diameter (Insp 2D) 1.3 cm IVC Diameter (Exp 2D) 1.9 cm <=2.1 IVC Diameter Percent Change (2D) 31 % >=50 Aortic Valve Name Value Normal AV Regurgitation 2D LVOT Area 2.5 cm2 Ventricles Name Value Normal LV Dimensions 2D/MM IVS Diastolic Thickness (2D) 1.0 cm 0.6-0.9 LVID Diastole (2D) 4.3 cm 3.3-5.1 LVIW Diastolic Thickness (2D) 0.9 cm 0.6-0.9 LVID Systole (2D) 2.6 cm 2.2-3.5 LVOT Diameter 1.8 cm LV Mass (2D Cubed) 128.46 g 67.00-162.00 LV Mass Index (2D Cubed) 0.01 g/cm2 0.00-0.01 Relative Wall Thickness (2D) 0.40 LV Fractional Shortening/Ejection Fraction 2D/MM LV Fractional Shortening (2D) 40 % 27-45 RV Dimensions 2D/MM RV Basal Diastolic Dimension 3.4 cm 2.5-4.1 Atria Name Value Normal LA Dimensions LA Area (4C) 27.9 cm2 LA Length (4C) 7.4 cm LA Area (2C) 27.1 cm2 LA Length (2C) 7.2 cm LA Volume (4C A-L) 89.65 ml LA Volume (2C A-L) 86.34 ml LA Volume (BP A-L) 89 ml 22-52 LA Volume Index (BP A-L) 51.90 ml/m2 <=34.00 LA Volume (BP MOD) 84.30 ml LA Volume Index (BP MOD) 49.22 ml/m2 16.00-34.00 RA Dimensions RA Area (4C) 16.8 cm2 <=18.0 Final Signed by:MD Duke Brandon R Signed (Electronic Signature):01/31/2024 8:35 a * Exam Date Time Procedure Performing Provider Status 01/31/24 5:37 AM XR Chest 2 Views Dianna Patterson; Jewel garcia Notes: (XR Chest 2 Views) Reason For Exam: s/p LAAO w/ WM Flex 31mm XR Chest 2 Views EXAMINATION: XR Chest 2 Views CLINICAL HISTORY: I48.91: Unspecified atrial fibrillation; I48.91: Unspecified atrial fibrillation; s/p LAAO w/ WM Flex 31mm COMPARISON: None. FINDINGS: PA and lateral views of the chest. Watchman device. Enlarged cardiac silhouette. Normal pulmonary vasculature. Emphysema seen on CT neck. Linear scarring/atelectasis in the lingula. No pleural effusion or pneumothorax. No acute osseous abnormality. IMPRESSION: Watchman device. No acute abnormality. Dr. Rafi Brumfield is the dictating resident. Finalized reports status indicates that the attending has reviewed the images and report, and agrees with the interpretation. Preliminary report status shouldbe regarded as NOT interpreted by the attending radiologist. Workstation ID: [id number] Final Dictated by:MD Brumfield Dan Dictated DT/TM:01/31/2024 11:57 Resident:MD Brumfield Dan Signed by:MD Lr Rekha Signed (Electronic Signature):01/31/2024 11:56 * Exam Date Time Procedure Performing Provider Status 01/30/24 10:27 AM Echo MINH Structural Intervention THOMAS Hester, Jose; Final Notes: (Echo MINH Structural Intervention) Reason For Exam: MINH to be done during [facility] Echo MINH Structural Intervention Report Signatures Finalized by Kumar Ho MD on 01/30/2024 10:57 AM [place] Act 112: No-No further action needed Summary 1. Normal left ventricular size and systolic function with no regional wall motion abnormalities. 2. Estimated Ejection Fraction 60-65%. 3. Normal right ventricular size and function. 4. Left atrial dilation. 5. Left atrial appendage is free of thrombus formation. 6. No significant valvular abnormality. 7. Successful deployment of a 31 mm Watchman FLX device in the OTIS. Maximum device width 2.39 mm. No steven-device flow was present. 8. Prominent epicardial fat pad was present and unchanged post procedure; no significant effusion. 9. No significant changes from prior TTE dated 11/12/2023. Patient Info Name: DANIELLE MATTA Age: 73 years : 1950 Gender: Female Technical Quality: Good Exam Date: 01/30/2024 8:51 AM Exam Location: [facility] [place] Patient Status: Inpatient Staff Ordering Physician: Antelmo Ingram ([facility]) Attending Physician: Antelmo Ingram ([facility]) Study Info CPT 96835 - 66781 - [id number] - [id number] - Indications - MINH to be done during Watchman Procedure(s) * A complete two-dimensional transesophageal study was performed. * Color Doppler was performed. * Limited spectral Doppler was performed. * 3D imaging performed to further visualize and clarify anatomy and severity of disease. 3D data processing was performed online at time of acquisition. Exam Type: Echo MINH Structural Intervention Complications There were no complication during the transesophageal echocardiogram. Medications Sedation provided by anesthesia team. Procedure Details The patient arrived in a fasting state after obtaining informed consent. The transesophageal probe was passed into the posterior pharynx, mid-esophagus, distal esophagus, and gastric fundus. Imaging was performed at multiple levels. The patient tolerated the procedure well and there were no complications. The patient was transferred out of the examination area in satisfactory condition. Left Ventricle Normal left ventricular size and systolic function with no regional wall motion abnormalities. Estimated Ejection Fraction 60-65%. Right Ventricle Normal right ventricular size and function. Left Atrium Left atrial dilation. Right Atrium Normal right atrial size. Atrial Septum Lipomatous hypertrophy of the atrial septum. A patent foramen ovale is present with a left to right flow demonstrated by color flow Doppler interrogation. Transeptal crossing was visualized live and occurred without complication. A small residual (iatrogenic) ASD was present at the conclusion of the case with left to right flow. Atrial Appendage Left atrial appendage is free of thrombus formation. Standardized measurement were taken for Watchman LAAO device. Maximum ostial measurement was 24.5 mm; depth was at least 26 mm. Aortic Valve The aortic valve is trileaflet and unremarkable by two-dimensional, color flow and Doppler interrogation. Pulmonic Valve Structurally unremarkable pulmonic valve with no significant flow abnormalities. Mitral Valve Mild mitral regurgitation. Tricuspid Valve Structurally unremarkable tricuspid valve with no significant flow abnormalities. Pulmonary Veins Doppler velocity profiles are normal indicating no obstruction of flow, normal left-sided filling pressures. Pericardium/Pleural No significant pericardial effusion. Prominent epicardial fat pad. Aorta Normal aortic root. Aorta Name Value Normal Ascending Aorta Sinus of Valsalva Diameter 3.3 cm 2.7-3.3 Final Signed by:MD Vic, Kumar Doyle Signed (Electronic Signature):01/30/2024 8:51 a Vital Signs Most recent to oldest [Reference Range]: 1 2 3 Height 160 cm (01/29/24 11:59 AM) Patient Weight 65.2 kg (01/31/24 5:42 AM) 65.1 kg (01/30/24 6:21 AM) Body Mass Index 25.43 kg/m2 (01/30/24 6:21 AM) Temperature [36.5-37.9 DegC] 36.3 DegC *LOW* (01/31/24 6:20 AM) 36.4 DegC *LOW* (01/31/24 5:03 AM) 36.4 DegC *LOW* (01/30/24 11:39 PM) Heart Rate 59 bpm (01/31/24 9:04 AM) 59 bpm (01/31/24 8:36 AM) 69 bpm (01/31/24 6:20 AM) Respiratory Rate 13 br/min (01/31/24 6:20 AM) 25 br/min (01/31/24 5:03 AM) 22 br/min (01/30/24 11:39 PM) Blood Pressure 157/74mmHg (01/31/24 6:20 AM) 152/69mmHg (01/31/24 5:03 AM) 139/65mmHg (01/30/24 11:39 PM) Mean Blood Pressure 92 mmHg (01/31/24 5:03 AM) 87 mmHg (01/30/24 11:39 PM) 85 mmHg (01/30/24 9:26 PM) Cuff Pulse Pressure 83 mmHg (01/31/24 5:03 AM) 74 mmHg (01/30/24 11:39 PM) 59 mmHg (01/30/24 9:26 PM) BP Location # 1 Left Arm, Non-invasive (01/30/24 6:45 PM) Left Arm (01/30/24 6:27 AM) Social History Social History Type Response Tobacco Former smoker, Smoke less tobacco use: Former smokeless tobacco user, quit more than 1 year ago. Smoking Status Former Smoker, quit > 1 yr Sex Female Radiology * Contributor_system, MUSE01: VERIFY, PERFORM Event Display: EKG Authored Date: Please click on link to see image. Anes H&P * MD Reis Adam Y: PERFORM, MODIFY, SIGN, VERIFY Event Display: Anes H&P Authored Date: [id number] Patient: DANIELLE MATTA Age: 73 years Sex: Female : 1950 Associated Diagnoses: None Author: MD Reis Adam Y Preoperative Information Pre-Operative Diagnosis: A.fib/flutter . Anesthiesia Preop Info: Procedure: Left Atrial Appendage Occlusion - Watchman, with ASA and Intra Op MINH Date: 01/30/24 08:00 Surgeons: MD Ingram Moses Diagnosis: Procedure: MINH with ASA Date: 03/14/24 10:00 Surgeons: MD Jennings Eric Diagnosis: . History of Present Illness This is a 73 year old, 64.5kg female with a past medical history of recent ischemic stroke (November 2023) with conversion to hemorrhagic stroke after tNK administration (medically managed), atrial fibrillation/flutter, HTN, COPD, DMT2, muscular dystrophy, JG (uses CPAP), and GERD. She is concerned about long-term anticoagulation given her recent stroke([id number] 4, HASLBED 5), and is now presenting for the above procedure. Some visual acuity loss in right eye and some residual weakness in her left torso and leg. Previous AW: Sigmoidoscopy in 2020. No airway record noted. Recent Echo: 11/12/23 TTE Summary 1. Normal left ventricular size and systolic function with no regional wall motion abnormalities. 2. Estimated ejection fraction 60-65%. 3. Abnormal diastolic parameters. 4. Normal right ventricular size and function. 5. Severely dilated left atrium size. 6. No significant valvular abnormalities. 7. Insufficient data for estimation of pulmonary artery systolic pressures. 8. Compared to previous study from 04/2022 , there is no significant change. Access: PIV NPO status: Since midnight Medical History Cardiovascular: Hypertension. Medical Devices: Medical Devices: none . Endocrine/Metabolic: Diabetes mellitus. Pulmonary: COPD. Obstructive sleep apnea: CPAP. Neurologic: Muscular Dystrophy. Anesthesia History: Patient's history: Negative. Health Status Allergies: Allergic Reactions (Selected) Mild IVP dye- Hives. Severity Not Documented Adhesive bandage- Contact dermatitis.. Allergy Not found in Search- Unknown and sneezing, nasal drainage. AmLODIPine- Fatigue/constipation. Avelox- Yeast infection. Cefuroxime- C. diff infection. Mold- Upper resp symptoms.. Medications: Medication List (Selected) Prescriptions Prescribed Eliquis 5 mg oral tablet: 1 tab, PO, bid, for 90 day, 180 tab, 2 Refill(s) Keppra 500 mg oral tablet: 1 tab, PO, bid, for 90 day, 180 tab, 1 Refill(s) NIFEdipine 30 mg oral tablet, extended release: 3 tab, PO, Daily, 90 tab, 6 Refill(s) esomeprazole 40 mg oral delayed release capsule: 1 cap, PO, Daily, 90 cap, 3 Refill(s) hydrALAZINE 100 mg oral tablet: 1 tab, PO, tid, 90 tab, 5 Refill(s) losartan 50 mg oral tablet: 1 tab, PO, bid, 180 tab, 1 Refill(s) metoclopramide 10 mg oral tablet: 1 tab, PO, tid, 360 tab, 2 Refill(s) metoprolol succinate 50 mg oral tablet, extended release: 1 tab, PO, bid, 60 tab, 6 Refill(s) predniSONE 50 mg oral tablet: See Instructions, Take 1 tablet 13 hours, 7 hours and 1 hour prior toprocedure, 3 tab, 1 Refill(s) vancomycin oral capsule 125 m cap, PO, q6h, for 10 day, 40 cap Documented Medications Documented Trelegy Ellipta 100 mcg-62.5 mcg-25 mcg/inh inhalation powder: 1 puff, inhaled, Daily Vitamin B Complex: See Instructions ZyrTEC 10 mg oral tablet: 1 tab, PO, Daily, PRN: as needed for allergy symptoms albuterol 90 mcg/inh inhalation powder: fluticasone 50 mcg/inh nasal spray: 1 spray, each nostril, bid, PRN: allergy symptoms multivitamin: 1 tab, PO, Daily traMADol 50 mg oral tablet: 1 tab, PO, q4h, PRN: as needed for pain. Histories Procedure History: CT of abdomen and pelvis ([id number]) on 01/22/2024 at 73 Years. Comments: 01/22/2024 13:08 RHEA Brito LPN, Karli R 1. Findings are consistent with a nonspecific pancolitis. 2. The colon is normal in caliber. No intraperitoneal air seen. 3. Cardiomegaly and advanced emphysema. 4. Additional findings as above. Chest X-ray ([id number]) on 12/12/2023 at 73 Years. Comments: 12/12/2023 07:46 RHEA Brito LPN, Karli R No acute chest disease. Mammogram ([id number]) on 07/26/2023 at 73 Years. Comments: 07/27/2023 15:21 NANCY Klein LPN, Andrew E [facility] Impression: ACR BI-RADS CATEGORY 2: BENING 1. No evidence of malignancy Chest x-ray ([id number]) on 03/01/2023 at 72 Years. Comments: 03/01/2023 15:12 RHEA Klein LPN, Andrew E [facility] Impression: 1. Cardiomegaly without acute process Colonoscopy ([id number]) on 09/18/2022 at 72 Years. Comments: 10/05/2022 20:23 NANCY Tavarez MD, Becky Millan next scope in 3 yrs. 09/18/2022 15:10 NANCY Brito LPN, Karli R Five 3 to 6 mm polyps in the rectum, sigmoid colon and in the transverse colon, removed with a coldsnare. Resected and retrieved. Diverticulosis in the sigmoid colon. Non bleeding internal hemorrhoids. Mammogram ([id number]) on 07/20/2021 at 71 Years. Comments: 07/20/2021 15:57 NANCY Brito LPN, Karli R No mammographic evidence of malignancy. 1 year screening mammogram is recommended. CT of abdomen and pelvis ([id number]) on 05/11/2021 at 71 Years. Comments: 06/06/2021 13:16 RHEA Brito LPN, Karli R 1. No evidence for metastatic disease within the abdomen or pelvis. 2. Right sided nephrolithiasis. No ureteral stones. No hydronephrosis. 3. No definite bowel wall thickening or obstruction. 4. Colonic diverticulosis. No evidence for acute diverticulosis. 5. Moderate well formed stool seen within the colon. 6. Emphysema. 7. Additonal findings as described above. Chest CT ([id number]) on 05/11/2021 at 71 Years. Comments: 06/06/2021 13:11 RHEA Brito LPN, Karli R 1. Emphysema without acute intrathoracic abnormality. 2. No adenopathy or evidence of pulmonary metastatic disease. 3. Prior granulomatosis disease. Colonoscopy ([id number]) on 02/22/2021 at 70 Years. Comments: 03/04/2021 10:41 RHEA Sin LPN, Catherine Pathology showed 2 tubular adenomas and 1 neuroendocrine tumor of rectum. Repeat in 1 years. 02/22/2021 11:09 RHEA Mcallister MD, Lexx D COLO to cecum, redundant colon, random AC and sigmoid bx taken, rectal polyps times 3 each 5 mm 2 hot snared and one cold snared. Shave biopsy and cauterisation of skin ([id number]) on 02/11/2020 at 69 Years. Shave biopsy and cauterization of skin ([id number]) on 07/29/2019 at 69 Years. Comments: 07/29/2019 09:19 NANCY Hennessy LPN, Edith L upper back Shave biopsy and cauterization of skin ([id number]) on 05/21/2017 at 67 Years. Punch biopsy ([id number]) on 02/22/2015 at 64 Years. Punch biopsy of skin ([id number]) on 02/10/2015 at 64 Years. Bowel obstruction ([id number]) in the month of 04/2014 at 63 Years. Excision of basal cell carcinoma ([id number]) on 01/14/2014 at 63 Years. Shave biopsy of skin ([id number]) on 12/30/2013 at 63 Years. Sinus surgery ([id number]) on 09/24/2013 at 63 Years. Shave biopsy of skin ([id number]) on 09/28/2011 at 61 Years. Colonoscopy ([id number]) on 07/20/2005 at 55 Years. Comments: 10/05/2017 15:34 NANCY Fox LPN, Michele L Colonoscopy normal- Repeat in 10 years. Excision ([id number]). Comments: 11/28/2013 12:15 Eli Babcock left palm cyst Hysterectomy ([id number]). Miscellaneous ([id number]). Comments: 11/28/2013 12:16 Eli Babcock foot surgery Procedure ([id number]). Comments: 12/30/2013 09:36 RHEA Zarate LPN, [facility] implant system ([id number]). Biopsy of lung ([id number]).. 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 Former Smoker, quit > 1 yr Other Tobacco Use: Never used other tobacco products Alcohol Frequency: Occasionally Alcohol Type: Wine Recreational Drugs: Denies . Physical Examination VS/Measurements: Vital Signs 01/30/2024 06:27 EDT Temperature 36.3 DegC LOW Temperature Route Temporal Heart Rate 52 bpm Respiratory Rate 18 br/min Systolic Blood Pressure 141 mmHg Diastolic Blood Pressure 67 mmHg BP Location # 1 Left Arm BP Cuff Size Regular Mean Blood Pressure 88 mmHg Cuff Pulse Pressure 74 mmHg Oxygen Therapy Room Air SpO2 95 % . General: Alert and oriented, No acute distress. Airway: Mallampati classification: II (soft palate, fauces, uvula visible). Mouth: Within normal limits, Teeth ( Within normal limits ). Respiratory: Respirations are non-labored, Symmetrical chest wall expansion. Cardiovascular: Normal rate, Regular rhythm. Anesthesiologist Assessment and Plan Problems: No previous anesthetic complications, No a/w concerns. ASA Classification: Class III. Anesthetic Plan: Anesthetic technique discussed: General anesthesia. Risks discussed: Nausea-vomiting, Headache, Sore throat, Dental injury, Serious complications, Aspiration, stroke . Informed consent: Signed by patient. History, Physical Exam, Assessment and Plan Completed: 01/30/2024 07:15:00, MD Smiley, Brandin Wang Electronic Signature on File Electronically Reviewed/Signed by: Brandin Reis MD Author Signature Dt/Tm:01/30/2024 09:45 AM Department of Anesthesia AYA * CONCEPCION Holley Kathleen R: MODIFY, MODIFY, MODIFY, MODIFY, MODIFY, MODIFY, MODIFY, PERFORM MD Juan Jose, Antelmo: MODIFY Event Display: Pre-OP H & P Authored Date: [id number] PRE-OPERATIVE HISTORY AND PHYSICAL Name: DANIELLE MATTA Patient Number: [id number] : 1950 Date of Service: 01/30/2024 PRE-OP Diagnosis: Persistent Atrial Fibrillation Planned Procedure: Left atrial appendage occlusion with Watchman device Chief Complaint: patient request for nonpharmacological treatment of stroke risk d/t Afib. History of Present Illness (including history relevant to procedure): _ Mrs. Matta is a 73-year-old female who presented at the beginning of November 2023 with an ischemic stroke (acute right thalamic and left paramedial frontal lobe involvement). She was given TNK at an outside hospital on 11/09/2023. Unfortunately, this resulted in intracranial hemorrhage (left parietal and parenchymal hemorrhage, and posterior parietal subdural hematoma, along with trace scattered subarachnoid hemorrhage with about a 3 mm midline shift). She was subsequently transferred to the [facility] for further management. Here she was managed medically and assessed by neurology as well as neurosurgery. After assessment, plan was to treat her medically (neurosurgical intervention was deferred). TNK was reversed, and her blood pressure and heart rate were managed. During thehospitalization, she was noted to have intermittent increase in heart rate, concerning for atrial flutter and atrial fibrillation. Eventually, she was stabilized and sent to neurology with recommendation to follow-up with cardiology to discuss possible watchman implantation to avoid long-term oral anticoagulation. She was seen by neurology as outpatient on 12/13/2023 (telehealth visit with Dr. Howe). She had a CT scan of the head on 12/09 that showed that the previously noted brain bleed had resolved. There was no new evidence of bleeding. After the visit, neurology recommended that she start on Eliquis. Per this note, neurosurgery had cleared the patient to commence treatment for atrial fibrillation/atrial flutter (including oral anticoagulation, as mentioned in Dr. Medel's note from 12/10/2023). The patient had a Holter monitor placed on 11/13/2023 that also showed atrial fibrillation and atrial flutter. She presented to D clinic on 01/01/24 with her . She was very anxious about the prospect oforal anticoagulation chronically. She was interested in the nonpharmacologic option of left atrial appendage occlusion with a Watchman device. Given her clinical situation, implantation of the Watchman device would be entirely reasonable for her. Pathophysiology of atrial fibrillation and its relationship to the left atrial appendage was reviewed. Merits of left atrial appendage occlusion with a Watchman device were discussed. The Watchman procedure as well as some of the periprocedural considerations (example follow- up MINH at 45 days etc.) was discussed. She was informed about how we screen the left atrial appendage anatomy with a MINH on the day of the procedure, and at times, have to cancel the case because of the pre-existing blood clot and the left atrial appendage and/for if the leftatrial appendage anatomy is found to be well-suited to occlusion with a Watchman device. Mrs. Matta and her were agreeable to this plan and wish to pursue Watchman. She presents electively for this today, Review Of Systems: _ Negative Findings Constitutional _ _ HEENT _ right eye vision loss Respiratory _ _ Cardiovascular _ _ Gastrointestinal _ _ Genitourinary _ _ Hem/Lymph _ _ Endocrine _ _ Musculoskeletal _ _ Immunologic _ _ Skin _ _ Neurologic _ difficulty with word finding, reading. Numbn ess LUE/LLE Psychiatric _ _ Other _ _+ C Diff 01/21/24. Vancomycin 125mg po q 6hr x 10days Past Medical History: Problems: Acute right thalamic and left paramedian frontal lobe ischemic stroke status post TNK 11/08, etiologylikely secondary to cardioembolic via atrial flutter not on anticoagulation Bacterial lobar pneumonia Plantar fasciitis, left Diabetes Apnea, sleep Dyspnea Copy of advanced directive obtained Peripheral vascular disease Atherosclerosis of aorta Syndrome of inappropriate ADH (SIADH) secretion Osteoporosis HTN (hypertension) Diabetes mellitus with diabetic neuropathy Sleep apnea History of squamous cell carcinoma of skin PAC (premature atrial contraction) PAT (paroxysmal atrial tachycardia) H/O hypercalcemia Chronic constipation JG on CPAP COPD (chronic obstructive pulmonary disease) Callus Tinea unguium Epidermal cyst Neuroendocrine tumor Intermittent urinary incontinence Adult pulmonary Langerhans cell histiocytosis Chronic bronchitis with COPD (chronic obstructive pulmonary disease) IFG (impaired fasting glucose) Sun-damaged skin Radiculopathy, cervical Neck pain Right foot pain Ganglion cyst Seborrheic keratosis FAMILY HISTORY OF OTHER SPECIFIED MALIGNANT NEOPLASM Twitch Muscular dystrophy Reflux Ganglion/synovial cyst - hand Dupuytren's disease Dupuytren's contracture Melanocytic nevus of trunk Weight monitoring Procedure History Procedure Procedure Date Comments Excision - left palm cyst Hysterectomy Miscellaneous - foot surgery Procedure - sinoplastey Dental implant system Biopsy of lung CT of abdomen and pelvis 01/22/2024 - 1. Findings are consistent with a nonspecific pancolitis.2. The colon is normal in caliber. No intraperitoneal air seen.3. Cardiomegaly and advanced emphysema.4. Additional findings as above. Chest X-ray 12/12/2023 - No acute chest disease. [facility] 2: BENING1. No evidence of malignancy [facility]. Cardiomegaly without acute process Colonoscopy 09/18/2022 - next scope in 3 yrs. - Five 3 to 6 mm polyps in the rectum, sigmoid colon and in the transverse colon, removed with a cold snare. Resected and retrieved.Diverticulosis in the sigmoid colon.Non bleeding internal hemorrhoids. Mammogram 07/20/2021 - No mammographic evidence of malignancy. 1 year screening mammogram is recommended. CT of abdomen and pelvis 05/11/2021 - 1. No evidence for metastatic disease within the abdomen or pelvis.2. Right sided nephrolithiasis. No ureteral stones. No hydronephrosis.3. No definite bowel wall thickening or obstruction.4. Colonic diverticulosis. No evidence for acute diverticulosis.5. Moderate well formed stool seen within the colon.6. Emphysema.7. Additonal findings as described above. Chest CT 05/11/2021 - 1. Emphysema without acute intrathoracic abnormality.2. No adenopathy or evidence of pulmonary metastatic disease.3. Prior granulomatosis disease. Colonoscopy 02/22/2021 - Pathology showed 2 tubular adenomas and 1 neuroendocrine tumor of rectum. Repeat in 1 years. - COLO to cecum, redundant colon, random AC and sigmoid bx taken, rectal polyps times 3 each 5 mm 2hot snared and one cold snared. Shave biopsy and cauterisation of skin 02/11/2020 Shave biopsy and cauterization of skin 07/29/2019 - upper back Shave biopsy and cauterization of skin 05/21/2017 Punch biopsy 02/22/2015 Punch biopsy of skin 02/10/2015 Bowel obstruction 04/2014 Excision of basal cell carcinoma 01/14/2014 Shave biopsy of skin 12/30/2013 Sinus surgery 09/24/2013 Shave biopsy of skin 09/28/2011 Colonoscopy 07/20/2005 - Colonoscopy normal- Repeat in 10 years. Allergies and Sensitivities: cefuroxime(c. diff infection) IVP dye(hives) amLODIPine(fatigue/constipation) Mold(upper resp symptoms) Allergy Not found in Search(unknown) Allergy Not found in Search(sneezing, nasal drainage) Avelox(yeast infection) Adhesive bandage(Contact dermatitis.) Current Home Meds: (Last Updated 01/28 11:58) NIFEdipine (NIFEdipine 30 mg oral tablet, extended release) 90 mg PO Daily albuterol (albuterol 90 mcg/inh inhalation powder) apixaban (Eliquis 5 mg oral tablet) 5 mg PO bid cetirizine (ZyrTEC 10 mg oral tablet) 10 mg PO Daily PRN: as needed for allergy symptoms esomeprazole (esomeprazole 40 mg oral delayed release capsule) 1 cap PO Daily fluticasone nasal (fluticasone 50 mcg/inh nasal spray) 1 spray each nostril bid PRN: allergy symptoms fluticasone/umeclidinium/vilanterol (Trelegy Ellipta 100 mcg-62.5 mcg-25 mcg/inh inhalation powder)1 puff inhaled Daily hydrALAZINE (hydrALAZINE 100 mg oral tablet) 100 mg PO tid levETIRAcetam (Keppra 500 mg oral tablet) 500 mg PO bid losartan (losartan 50 mg oral tablet) 50 mg PO bid metoclopramide (metoclopramide 10 mg oral tablet) 1 tab PO tid metoprolol (metoprolol succinate 50 mg oral tablet, extended release) 50 mg PO bid multivitamin (Vitamin B Complex) multivitamin 1 tab PO Daily predniSONE (predniSONE 50 mg oral tablet) Take 1 tablet 13 hours, 7 hours and 1 hour prior to procedure traMADol (traMADol 50 mg oral tablet) 50 mg PO q4h PRN: as needed for pain vancomycin (vancomycin oral capsule 125 mg) 125 mg PO q6h No Vital Signs Data Available Initial Wt: No Data Available Physical Exam: (relevant to the procedure, including heart and lung evaluation) General: _ AAOx3, pleasant and cooperative, NAD HEENT: _ AT/NC, EOMI Neck: _ supple, without JVD or carotid bruit Cardiac: Irregular rhythm Lungs: _ Clear to auscultation bilaterally Abdomen: _ soft, round, nontender, nondistended; +bowel sounds Extremities: _ +_ R/L femoral; +_ R/L posterior tibial; +_ R/L pedal; +_ R/L radial Skin: _ intact and without rashes or lesions Studies of Lab Results (relevant to the procedure): TTE 11/12/2023: Summary 1. Normal left ventricular size and systolic function with no regional wall motion abnormalities. 2. Estimated ejection fraction 60-65%. 3. Abnormal diastolic parameters. 4. Normal right ventricular size and function. 5. Severely dilated left atrium size. 6. No significant valvular abnormalities. 7. Insufficient data for estimation of pulmonary artery systolic pressures. 8. Compared to previous study from 04/2022 , there is no significant change. ASSESSMENT: _ Mrs. Matta is a 73 year old female with atrial fibrillation, on anticoagulation with [id number] of at least 4, HASBLED 5 in whom patient and family seeking alternative to anticoagulation for stroke prevention. Patient was evaluated and presented with plan for Watchman device. The patient saw a non implanting physician for shared decision making with use of a shared decision making tool. Cardioarts decision making aid for Afib reviewed with patient. Using shared decision making with patient, family, and SHD team they wished to proceed with left atrial appendage occlusion. Procedure was reviewed with patient and family present at bedside including risk, benefits, and alterna tives as well as postprocedural expectations. Patient was given adequate time to review and ask questions as needed. All questions answered to patient and family satisfaction. Patient denied further questions, verbalized understanding, and expressed interest in moving forward. Informed consent was obtained Addendum: I saw and evaluated the patient and agree with the findings and plans as written. I have amended and/or appended as necessary. I discussed the risk and benefits with the patient, and reviewed the case details with the house staff. Informed consent was obtained and included in the chart. Antelmo Ingram MD Life Science Research Assistant, Interventional Cardiology [facility] [place] [facility] Electronic Signature on File Electronically Reviewed/Signed by: CONCEPCION Haskins Author Signature Dt/Tm:01/30/2024 08:48 AM [facility] [place] Electronically Reviewed/Signed by: Antelmo Ingram MD Cosigner Signature Dt/Tm: 01/30/2024 07:49 AM Division of Interventional Cardiology [facility] Discharge instructions * CONCEPCION Holley, Danielle Hernandez: PERFORM Event Display: Patient Discharge Instructions Authored Date: [id number] DANIELLE MATTA :1950 Visit Date:01/30/2024 Patient Discharge Instructions A pending Discharge Instructions document already exists on this encounter. Click the cancel button, discard changes and modify the existing Discharge Instructions document. [facility] For medical concerns, call: . Date of Admission:01/30/2024 Date of Discharge:01/31/2024 Physician:MD Ingram Moses Service:Cardiology Discharge Disposition: . Advance Directive:No Reason for Hospitalization Atrial fibrillation Implantation of left atrial appendage occluder device-Watchman Your Diagnoses Atrial fibrillation s/p implantation of left atrial appendage occluder device-Watchman [employer] Patient Portal: [facility] makes it easy for you to manage your health information online. [employer] [place] [facility] is a free service that provides you instant, secure access to your medical information anytime, anywhere. Sign in or set up your account today at [email or web address] Thank you for allowing us to assist you with your healthcare needs. If you need additional community resources, [employer] can help at https://www.pa211.org. 211 can assist you in connecting with social programs based on your unique needs and locations. 211 is an anonymous search that can help you locate resources for: Food, Housing, Transportation, Goods, Education and Healthcare. Medications Patient is enrolled in Rx-to-Go Program New medications will be delivered from [facility] to patient's room at discharge: Mon-Sun from 9AM-5 PM. Medications MUST be PICKED UP at [facility] if patient is discharged Mon-Sun after 5 PM or anytime on holidays. Please note, the [facility] closes at 8 PM on weekdays and 5:30 PM on Saturdays, Sundays, and holidays. What How Much When Instructions Next Dose New aspirin (aspirin 81 mg oral tablet, chewable) 1 tab(s) by mouth Once daily New clopidogrel (clopidogrel 75 mg oral tablet) 1 tab(s) by mouth Once daily Refills: 2 Pickup at [facility] [place] Changed metoprolol (metoprolol succinate 25 mg oral tablet, extended release) 1 tab(s) by mouth 2 times daily Changed multivitamin 1 tab(s) by mouth Once daily Unchanged albuterol (albuterol 90 mcg/ inh inhalation powder) Unchanged cetirizine (ZyrTEC 10 mg oral tablet) 1 tab(s) by mouth Once daily as needed for as needed for allergy symptoms Unchanged esomeprazole (esomeprazole 40 mg oral delayed release capsule) 1 cap by mouth Once daily Unchanged fluticasone nasal (fluticasone 50 mcg/ inh nasal spray) 1 spray(s) in each nostril 2 times daily as needed for allergy symptoms Unchanged fluticasone/ umeclidinium/ vilanterol (Trelegy Ellipta 100 mcg-62.5 mcg-25 mcg/ inh inhalation powder) 1 puff(s) Inhalation Once daily Unchanged hydrALAZINE (hydrALAZINE 100 mg oral tablet) 1 tab(s) by mouth 3 times daily Unchanged levETIRAcetam (Keppra 500 mg oral tablet) 1 tab(s) by mouth 2 times daily Duration: 90 Days Unchanged losartan (losartan 50 mg oral tablet) 1 tab(s) by mouth 2 times daily Unchanged metoclopramide (metoclopramide 10 mg oral tablet) 1 tab(s) by mouth 3 times daily Unchanged NIFEdipine (NIFEdipine 30 mg oral tablet, extended release) 3 tab(s) by mouth Once daily Unchanged traMADol (traMADol 50 mg oral tablet) 1 tab(s) by mouth Every 4 hours as needed for as needed for pain Unchanged vancomycin (vancomycin oral capsule 125 mg) 1 cap by mouth Every 6 hours Duration: 10 Days Pharmacy Information [facility] [place]: [facility] ANKIT Brock [phone] Allergies IVP dye (Mild)hives Adhesive bandageContact dermatitis. Allergy Not found in Searchsneezing, nasal drainage, unknown Aveloxyeast infection Moldupper resp symptoms amLODIPinefatigue/constipation cefuroximec. diff infection What to do next Instructions From Your Doctor Left Atrial Appendage Closure Device After your procedure, you will need to take: 1)Aspirin 81 mg PO daily 2) Clopidogrel (Plavix) 75mg daily Aspirin/Clopidogrel can thin your blood. Do not STOP Aspirin/Clopidogrel until told to by Panel Cutter. Medications: You will discontinue your Eliquis. You are NOW taking aspirin and clopidogrel. RESUME all other medications as previously prescribed. You have been given a closure device ID card with your discharge packet. Carry it with you at all times. It is important that all healthcare providers are aware of this device. For 6 months after a closure, you will need to takeantibioticsbefore medical or dental procedures. This helps prevent the risk of infection to the device. Always inform your other healthcare providers before having medical or dental procedures that you have this device. We have given you a white wallet card with information. Activity While the wound is healing, bleeding or swelling can occur as a result of stress or strain to the groin and abdominal muscles. Carefully follow these guidelines: On the day of discharge, limit your activities No driving for 72 hours You may shower after 24 hours, but no tub baths for one week You may resume your usual activities the day after discharge, including normal social activities, except: No heavy lifting of objects greater than 10 lbs for the next 3 days No strenuous physical exercise for one week (i.e., tennis, running, golfing, weightlifting or bicycling) No sexual activity for one week No contact sports for four weeks Wound Care After the procedure, a small dressing will be applied to the wound site. You may remove the dressing the day after the procedure. Do not reapply a new dressing or band-aid. Avoid lotions, ointments, or powders at the wound site for one week. Wound Healing The healing wound should remain soft and dry. A bruise (black and blue) or a marble-sized lump may be present. Please notify your doctor or the cardiac fellow glassware maker demonstrator if any of the following signs appear: Drainage from the wound A lump at the puncture site that enlarges or is larger than a marble Pain at the puncture site that makes walking difficult Numbness or tingling in the thigh or leg Calf tenderness or pain Swelling of the ankle or foot Increased area of the bruising with discoloration extending into the thigh, Over the buttock or into the groin Discoloration or coolness of the leg or foot Misc. Continue a heart healthy, low-fat, and high fiber diet. You will find information in the packet that we give you and on internet - [employer]. Increase your exercise as tolerated. You have been given printed Patient Education Instructions regarding Activity, Pain, Bleeding, Hygiene, Chest Pain, and Follow-Up. Read this information prior to leaving the hospital. This information includes phone numbers to call for answers to any questions. You have been given a WATCHMAN booklet.Please take your D/C Instructions and your booklet with you when you go to see your physicians. If you should have any questions/concerns regarding your procedure at this institution. Please callStructural Heart Officeat [phone] Follow up Cardiology appointments: Transesophageal ECHO post 45 days of procedure- March 14 @ [address] [place] [address] [facility] [place] If you notice the following symptoms Contact the [facility] Careline at . If unable to contact your physician and you feel it is an emergency, go to the nearest Emergency Room or call 911 Diet Instructions Heart Healthy Activity Instructions Per discharge instructions Follow-Up Appointments Scheduled Follow-Up Appointments Date/Time:Provider/Resource: Feb 01:15 ATTILA Anderson, Palmer Location/Instructions:[facility],[address] [place] [phone] Date/Time:Provider/Resource: Mar 10:00 [facility] ECHO MINH 1 Location/Instructions:1. You may have nothing to eat or drink 6 hours prior to this appointment. 2. Please bring a list of all medications you are currently taking or bring the actual medicineswith you.3. If you are on insulin or take medications for diabetes, consult your physician as to how to handle dosing of this medication prior to the test.4. Outpatients must arrange for a family member, friend, or other individual to serve as an escort and provide transportation.5. You will be called 1 business day prior with the time of your appointment. 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 Please arrive 15 min earlier than your appointment time for Check In Process. Someone Will Contact You Regarding These Appointments Dr. Shepherd's office is aware that your dose of Metoprolol was decreased. The Following Services Have Been Arranged for You No Post-Acute Placement(s) Listed No Post-Acute Service(s) Listed Tests Pending Extra Green (Arpin Heparin) Urine Analysis w/ Reflexed Microscopic. To obtain results pending at hospital discharge, call and ask for the following Physician:MD Juan Jose, Antelmo Procedures Performed LA appendage closure 31mm WM Flex 01/30/2024 Special Instructions Common Emergency Awareness Tips Call 911 immediately if: experiencing any of the warning signs and symptoms of stroke: B.E. F.A.S.T. Balance: is there trouble with walking or coordination Eyes: is there double vision or visual loss Face: Smile, do both sides of face move equally Arm: Raise arms, do both arms move equally Speech: Is speech slurred or inappropriate Time: Time is critical, call 911 immediately Heart Attack Signs Chest discomfort: Most heart attacks involve discomfort in the center of the chest and lasts more than a few minutes, or goes away and comes back. It can feel like uncomfortable pressure, squeezing, fullness or pain. Discomfort in upper body: Symptoms can include pain or discomfort in one or both arms, back, neck, jaw or stomach. Shortness of breath: With or without discomfort. Other signs: Breaking out in a cold sweat, nausea, or lightheaded. Remember, MINUTES DO MATTER. If you experience any of these heart attack warning signs, call 9-1-1 to get immediate medical attention! Patient Care team information Care Team Personnel Name: Yohannes Brody Kimberly Position: Pharmacist BCMA Member Role: Pharmacy - Lifetime Address: Address: [facility] [address] [place] [address] [place] Name: MD Daysi, Becky Millan Position: Physician - Family Med Member Role: Primary Care Provider Address: Address: [address] [place] [id number] [place] Name: Yohannes Lundberg Ann Position: Pharmacist Member Role: Pharmacy - Lifetime Name: Yohannes Armstrong Ashley Position: Pharmacist Member Role: Pharmacy - Lifetime Name: MD Jayda, Segun Giles Position: Physician - Sports Medicine [place] Member Role: Lifetime Relationship Address: Address: [address] [address] [place] Care Team Related Persons Name: DM MATTA Address: home [address] [place] [address], [phone]
--- OUTSIDE RECORDS SUMMARY | 2024-02-07 14:04 | External Medical Summary | Continuity of Care Document ---
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 Name Role Phone Becky Tavarez Primary Care Physician [phone] [id number] Date[facility]s): 01/21/24 - 01/21/24 [facility] [address] [facility] [address] [facility] [address] [place], [place] [phone] Encounter Diagnosis Diarrhea, unspecified(Final) - Generalized abdominal [...] vaccine, H1N1 11 06/25/09 Recorded 1Result Comment: [facility] 2Result Comment: 2021-11-28: Historical information-source unspecified [...] bid, Disp# 180 tab, Refills: 2, Pharmacy: [facility] Start Date: 12/20/23 Stop Date: 09/15/24 Status: Ordered esomeprazole 40 mg oral delayed release capsule Start: 09/07/23 7:42:00 AM EST, 1 cap, PO, Daily, Disp# 90 cap, Refills: 3, [facility] Start Date: 09/07/23 Status: Ordered fluticasone 50 mcg/inh nasal spray Start: 12/13/15 12:51:00 PM EDT, 1 spray, each nostril, bid, PRN: allergy symptoms Start Date: 12/13/15 Status: Ordered hydrALAZINE 100 mg oral tablet Start: 12/17/23 10:12:00 AM EDT, 1 tab, PO, tid, Disp# 90 tab, Refills: 5, Pharmacy: [facility] Start Date: 12/17/23 Status: Ordered Keppra 500 mg oral tablet Start: 12/13/23 10:58:00 AM EDT, 1 tab, PO, bid, Disp# 180 tab, Refills: 1, [facility] Start Date: 12/13/23 Stop Date: 06/10/24 Status: Ordered losartan 50 mg oral tablet Start: 12/11/23 10:23:00 AM EDT, 1 tab, PO, bid, Disp# 180 tab, Refills: 1, [facility] Start Date: 12/11/23 Status: Ordered metoclopramide 10 mg oral tablet Start: 08/13/23 1:20:00 PM EST, 1 tab, PO, tid, Disp# 360 tab, Refills: 2, [facility] Start Date: 08/13/23 Status: Ordered metoprolol succinate 50 mg oral tablet, extended release Start: 12/17/23 10:19:00 AM EDT, 1 tab, PO, bid, Disp# 60 tab, Refills: 6, Note to Pharmacy: disreguard previous RX for 25mg, Pharmacy: [facility] Start Date: 12/17/23 Status: Ordered multivitamin Start: 01/01/24 10:22:00 AM EDT, 1 tab, PO, Daily Start Date: 01/01/24 Status: Ordered NIFEdipine 30 mg oral tablet, extended release Start: 12/19/23 4:50:00 PM EDT, 3 tab, PO, Daily, Disp# 90 tab, Refills: 6, Pharmacy: [id number] Start Date: 12/19/23 Status: Ordered predniSONE 50 mg oral tablet Start: 01/01/24 2:34:00 PM EDT, See Instructions, Disp# 3 tab, Refills: 1, Take 1 tablet 13 hours, 7hours and 1 hour prior to procedure, Pharmacy: [facility] Start Date: 01/01/24 Status: Ordered [...] day, Stop: 02/01/24 7:44:00 AM EDT, Pharmacy: [facility] Start Date: 01/22/24 Stop Date: 02/01/24 Status: [...] as above. 2No acute chest disease. 3[facility] Impression: ACR BI-RADS CATEGORY 2: BENING 1. No evidence of malignancy 4[facility] Impression: 1. Cardiomegaly without acute process 5Five [...] Results Orders for Microbiology Reports Name Date Parasite Panel, Stool (PARASITE PANEL) Microbiology Reports TEST:Parasite Panel STATUS:Auth (Verified) BODY SITE: SOURCE:Stool COLLECTED DATE/TIME:01/21/24 8:30 PM Molecular Detection No parasites detected. This specimen has been tested for: Cryptosporidium (parvum and hominis) DNA, Giardia lamblia DNA, and Entamoeba histolytica DNA. Any pathogen not listed as positive above has not been detected. Social History Social History Type Response Tobacco Former smoker, Smoke less tobacco use: Former smokeless tobacco user, quit more than 1 year ago. Smoking Status Former Smoker, quit > 1 yr Sex Female Patient Care team information Care Team Personnel Name: Yohannes Brody Kimberly Position: Pharmacist BCMA Member Role: Pharmacy - Lifetime Address: Address: [place] [address] [place] [address] [place] Name: MD Daysi, Becky Millan Position: Physician - Family Med Member Role: Primary Care Provider Address: Address: [address] [facility] [address] [place] [address] [place] Name: MD Jayda, Segun Giles Position: Physician - Sports Medicine [place] Member Role: Lifetime Relationship Address: Address: [address] [facility] [address] [place] [address] Care Team Related Persons Name: DM MATTA Address: home [address], [phone]
[2024-02-07 14:05] LABS: Basophils # (auto) 0.03 K/uL (0.00-0.20); Basophils % (auto) 0.4 %; Eosinophils # (auto) 0.04 K/uL (0.00-0.50); Eosinophils % (auto) 0.5 %; Hematocrit (blood only) 41.4 % (37.0-47.0); Hemoglobin 13.9 g/dl (12.0-16.0); Immature Granulocytes # (auto) 0.04 K/uL (0.01-0.20); Immature Granulocytes % (auto) 0.5 %; Lymphocytes # (auto) 1.11 K/uL (1.20-3.40); Lymphocytes % (auto) 14.4 %; Mean Corpuscular Hgb Conc 33.6 g/dL (32.0-36.0); Mean Corpuscular Volume 92.2 fL (80.0-100.0); Mean Platelet Volume 9.3 fL (9.4-12.4); Monocytes # (auto) 0.94 K/uL (0.11-0.59); Monocytes % (auto) 12.2 %; Neutrophils # (auto) 5.56 K/uL (1.40-6.50); Platelet Count 405 K/uL (130-400); RDW Coefficient of Variation 12.9 % (11.5-14.5); RDW Standard Deviation 43.6 fL (36.4-46.3); Red Blood Count 4.49 M/uL (4.20-5.40); White Blood Count 7.72 K/ul (4.8-10.8)
[2024-02-07 14:18] LABS: Albumin Globulin Ratio 1.3 (0.9-2); Albumin Level 4.2 gm/dl (3.4-5.0); Bilirubin,Total 0.4 mg/dl (0.2-1.0); Calcium 9.9 mg/dl (8.6-10.3); Creatinine Clr Calc Pharmacy 75.9 ml/min; Est GFR (African American) 106.6 ml/min; Globulin 3.2 gm/dl (2.5-4.0); Magnesium 1.7 mg/dl (1.7-2.4); Potassium 3.1 mmol/L (3.5-5.1); Total Protein 7.4 gm/dl (6.0-8.3)
--- NOTE | 2024-02-07 14:20 | CT Scan Report ---
CT head/brain wo con CLINICAL HISTORY: weakness Technique: Contiguous axial CT images of the head were acquired from the base of the skull to the adwoa mere without intravenous contrast administration. Images were viewed in brain, subdural and bone [facility]. Automated dose lowering techniques and/or adjustment according to patient size were utilized for this exam. Comparison: Comparison is made to CT head 11/09/2023 Findings: Encephalomalacia is seen in the prior region of hemorrhage. No acute abnormalities are seen in partic ular no evidence of acute infarct. A small amount of right maxillary sinus fluid is seen. The orbits appear normal. There are no acute f ractures of the calvaria or scalp swelling. Impression: No acute intracranial hemorrhage, no evidence of acute territorial infarction or other acute intracra nial disease process. ACT 112: Negative or not required by law. Electronically signed by: Gagandeep Fernandez M.D. 02/07/2024 2:18 PM
[2024-02-07 14:24] LABS: Troponin I High Sensitivity 15.6 pg/ml (0-14)
[2024-02-07 14:33] LABS: Thyroid Stimulating Hormone 1.085 uIu/ml (0.300-4.500)
[2024-02-07 14:46] LABS: Partial Thromboplastin Ratio 1.2; Partial Thromboplastin Time 31 Seconds (21-31); Prothrombin Time 11.1 Seconds (9.0-12.0)
[2024-02-07 14:56] LABS: D Dimer 1260 ug/L FEU (0-500)
[2024-02-07] MEDS: SODIUM CHLORIDE 0.9% 500 ML IV ONE (15:05)
[2024-02-07] MEDS: methylPREDNISolone 125 MG/2 ML VIAL IV ONE (15:16)
[2024-02-07] MEDS: FAMOTIDINE 20MG IV PUSH 20 MG/5 ML SYR IV STA (15:16)
[2024-02-07] MEDS: diphenhydrAMINE 50 MG/ML VIAL IV ONE (15:17)
[2024-02-07] MEDS: OPTIRAY 320 125ml IV ONE (15:27)
[2024-02-07 15:28] LABS: Appearance Urine Clear (Clear); Bacteria Urine Automated None Seen (None Seen); Bilirubin Urine Negative (Negative); Blood Urine Negative (Negative); Cast Urine Automated 0-2 /lpf (0-2); Color Urine Yellow; Epithelial Cell Urine Auto 0-2 /hpf (0-2); Glucose Urine UA Negative (Negative); Ketones Urine Negative (Negative); Leukocyte Esterase Urine Trace (Negative); Nitrite Urine Negative (Negative); Protein Urine Negative (Negative); RBC Urine Automated 0-2 /hpf (0-2); Specific Gravity Urine 1.006 (1.000-1.030); Urobilinogen Urine Negative (Negative); WBC Urine Automated 0-5 /hpf (0-5)
--- NOTE | 2024-02-07 15:40 | CT Scan Report ---
CT angio chest PE protocol CLINICAL HISTORY: PE TECHNIQUE: Multidetector row helical CT of the chest was performed with angiographic protocol. Dela Cruz l and sagittal reformations were obtained. Coronal and sagittal MIPS were obtained from the axial preston a set and were submitted for review. Automated dose lowering techniques and/or adjustment according to patient size were utilized for this exam. CT DOSE: 621.68 mGy.cm Comparison: Comparison is made to CT chest 08/02/2023 FINDINGS: Lungs and pleura: Diffuse centrilobular emphysema is seen most prominent in the upper lobes. No suspi cious pulmonary nodules are seen. Heart and pericardium: Cardiomegaly is seen with biatrial enlargement. Atrial appendage occlusion dev ice is seen. Pericardial effusion is seen. Vessels: No evidence of pulmonary embolism. Mediastinum and ari: Subcentimeter lymph nodes are seen. Chest wall and lower neck: Unremarkable. Abdomen: Unremarkable. Bones: Degenerative changes in the thoracic spine. Right rib dysplasia versus resection changes are a gain seen. IMPRESSION: 1. No evidence of pulmonary embolus. 2. Pericardial effusion has significantly enlarged from prior exam. No evidence of vena cava enlarge ment to suggest cardiac tamponade. 3. Cardiomegaly and emphysema as above. ACT 112: Negative or not required by law. Electronically signed by: Gagandeep Fernandez M.D. 02/07/2024 3:38 PM
[2024-02-07] MEDS: POTASSIUM CHLORIDE / WTR 10 MEQ/100 ML PLCT IV ONE ×2 (15:46→18:01)
--- NOTE | 2024-02-07 17:23 | History & Physical Report ---
Date of Service February 07, 2024 Assessment & Plan (1) Atrial fibrillation with rapid ventricular response: Plan: A-fib RVR Presented with A-fib RVR rates up to the 140s. Following Cardizem 10 mg, 5 mg, 5 mg had initial improved rate control and then converted to NSR Patient had been titrated off of beta-blockers as outpatient due to lightheadedness however has had recurrence of RVR with this Metoprolol 12.5 mg tartrate twice daily restarted, uptitrate as tolerated rated and then consolidate to succinate CT with posterior pericardial effusion, no evidence of tamponade. Echo ordered to further characterize. Patient follows with [facility] cardiology, consulted No chest pain or chest pressure on admission CTA without evidence of PE Troponin mildly elevated 15.6, repeat pending. Suspect demand. BNP is very mildly elevated in the setting of RVR, clinically no signs of volume overloaded Anticoagulation contraindicated due to intracranial bleed S/p Watchman procedure at [facility] Magnesium 1.7, will give p.o. x 3 doses to optimize to goal of 2.0. Potassium 3.1, IV 20 mEq plus p.o. 60 mEq total ordered for repletion, goal 4.0. BMP daily Patient was treated for C. difficile 2 weeks ago with complete resolution of symptoms after 10 days of vancomycin but did have several days of diarrhea which likely explains her magnesium/potassium levels. (2) Ischemic cerebrovascular accident (CVA): Plan: History of CVA 11/2023 with hemorrhagic conversion No new stroke deficits, CThead without new stroke/hemorrhage Per neurosurgery patient can be continued on aspirin, this is continued (3) HTN (hypertension): Plan: Hypertension Losartan 50 mg p.o. twice daily dose reduced to 25 mg twice daily to allow for metoprolol reinitiation, patient has had lightheadedness with multiple antihypertensives in the past Plan Chronic stable issues: GERD: Continue PPI COPD: No acute exacerbation. Continue inhalers DVT prophylaxis: Pharmacal prophylaxis contraindicated due to history of recent ICH. SCDs Disposition: PCU CODE STATUS: Full code Diet: Heart healthy History of Present Illness Primary Care Provider: Becky Tavarez MD Danielle is a 73-year-old female with past medical history of muscular dystrophy, tobacco abuse, COPD, JG and recent CVA 11/2023 treated with TNKase and subsequently with left-sided intracerebral hemorrhage with midline shift and subarachnoid extension who was transferred to [facility] for 6.7 x 3 cm left parietal intraparenchymal hemorrhage, 4 mm posterior parietal subdural hematoma, and trace scattered subarachnoid hemorrhage with 3 mm of midline cyst. She was treated with Keppra, TXA, and cryo with nicardipine drip while at [facility]. Original stroke acute right thalamic and left paramedial frontal lobe suspected to be due to cardioembolic from atrial flutter. During her hospitalization she did have runs of a flutter/A-fib. Patient stabilized during that admission and was discharged in fair condition on aspirin 81 mg daily pending follow-up for Ignacio procedure. She presented to the ER 02/07/2024 with difficulty breathing. On ER evaluation she was found to be in RVR with a heart rate in the 140s, A-fib. She was mariella ated with diltiazem 10 mg, 5 mg, 5 mg with improvement to the 1001 20s. CTA showed no evidence of PE. Pericardial effusion significantly enlarged from prior exam present but without evidence of cardiac tamponade. CThead did not show evidence of acute bleed or stroke. Chest x-ray was normal. Potassium 3.1, repleted. BMP mildly elevated to 42, troponin mildly elevated at 15.6. TSH was normal. UA was uninfected. Was recommended for admission and treatment of A-fib with RVR. Last few days intermittent tachycardia, dyspnea, and palpitations over the last few days but most of the time had symptoms. Had been titrated off metoprolol 2 days ago, had d/kiersten this as she was lightheaded, dizzy, and 'in fog' while on it. Stopping the MTP did help these symptoms. Had Watchman procedure 1 week ago at [facility], normally follows w/ Dr. Currie with [facility]. She is on both aspirin and plaavix since the watchman, is going to be on DAPT for 45 then days then will have re-evaluation and may go back to monotherapy. Is follwoing with [facility] Structural Heart clinical at [employer]. Phone # there is [phone]. No chest pain at time off assessment. no lightheadedness or dizziness at assessment No fevers, chills, or sweats No cough or wheezing no SoB at reassessment Has residual weakness in arm and leg, although improved with rehab post stroke. no change in symptoms recently. Some decreased sensation in her chest, and slightly in the L foot otherwise denies numbness/tingling. No headache on assessments Had C difficile 2 weeks ago, was treated 10 days of vancomycin with resolution of symptoms. Medical History: Reviewed Medications: Reviewed. Tooks meds including ASA and Plaavix this am, Surgical History: Reviewed Family history: Reviewed Allergies: Reviewed Social History: No tobacco use, 1/2 glass wine with dinner Code Status: Full Code Allergies Allergy/AdvReac Type Severity Reaction Status Date / Time Iodinated Contrast Media Allergy Intermediate Hives Verified 02/07/24 15:52 mold Allergy Intermediate SNEEZING/CO Verified 02/07/24 15:52 NGESTION moxifloxacin [From Avelox] Allergy Intermediate ITCHING/YEAST Verified 02/07/24 15:52 INFECTION Tetracyclines Allergy Intermediate ? ITCH ALL Verified 02/07/24 15:46 OVER, PT NOT SURE adhesive Allergy Mild ITCHY RASH Verified 02/07/24 15:52 amlodipine AdvReac Intermediate FATIGUE/CON Verified 02/07/24 15:52 STIPATION cefuroxime AdvReac Intermediate CAUSED C. Verified 02/07/24 15:52 DIFF INFECTION Home Medications Medication Instructions Recorded Confirmed Type acetaminophen 500 mg tablet 500 mg PO Q6H PRN Pain 01/30/19 02/07/24 History (Tylenol Extra Strength) cetirizine 10 mg capsule (Zyrtec) 10 mg PO DAILY PRN Allergy Symptoms 09/10/19 02/07/24 History fluticasone propionate 50 2 spray intranasal DAILY PRN 04/13/22 02/07/24 History mcg/actuation nasal Allergy Symptoms spray,suspension (Flonase Allergy Relief) clopidogrel 75 mg tablet 75 mg PO QAM 09/12/22 02/07/24 History metoclopramide HCl 10 mg tablet 10 mg PO TID 10/04/22 02/07/24 History albuterol sulfate 90 mcg/actuation 2 puff inhalation Q4H PRN 10/25/22 02/07/24 Rx aerosol inhaler (Ventolin HFA) Shortness Of Breath #3 Inhalers denosumab 60 mg/mL subcutaneous 60 mg subcut Q6MO 02/07/23 02/07/24 History syringe (Prolia) esomeprazole magnesium 40 mg 40 mg PO QPM #90 caps 08/07/23 07/04/24 Rx capsule,delayed release metoprolol succinate 25 mg 25 mg PO BID 04/11/23 02/07/24 History tablet,extended release 24 hr fluticasone fur. 100 mcg-umeclid 1 inh inhalation DAILY #3 Inhalers 12/25/23 02/07/24 Rx 62.5 mcg-vilant 25 mcg inhalat.powder (Trelegy Ellipta) aspirin 81 mg chewable tablet 81 mg PO DAILY 02/07/24 02/07/24 History hydralazine 100 mg tablet 100 mg PO TID 02/07/24 02/07/24 History levetiracetam 500 mg tablet 500 mg PO BID 02/07/24 02/07/24 History (Keppra) losartan 50 mg tablet 50 mg PO BID 02/07/24 02/07/24 History multivitamin 1 tab PO QAM 02/07/24 02/07/24 History nifedipine 30 mg tablet,extended 30 mg PO DAILY 02/07/24 02/07/24 History release tramadol 50 mg tablet 50 mg PO Q4H PRN Pain 02/07/24 02/07/24 History Past Med/Surg History Problem List (Updated 02/07/24 @ 16:48 by Levar Jones DO) Effusion, pericardium (Acute) Hypokalemia (Acute) SOB (shortness of breath) (Acute) Atrial fibrillation with rapid ventricular response (Acute) CVA (cerebral vascular accident) Midline shift of brain (Acute) Subarachnoid hemorrhage (Acute) Acute intracerebral hemorrhage (Acute) GERD (gastroesophageal reflux disease) Hyperlipidemia Ischemic cerebrovascular accident (CVA) Shoulder pain, right FSH (facioscapulohumeral muscular dystrophy) COPD (chronic obstructive pulmonary disease) Dyspnea on exertion Former smoker SIADH (syndrome of inappropriate ADH production) HTN (hypertension) Prediabetes (Chronic) Dysphagia (Acute) Vitamin D deficiency (Acute) Liver lesion, right lobe (Acute) IBS (irritable bowel syndrome) LVH (left ventricular hypertrophy) Diastolic dysfunction Tremor Tachycardia Weakness Other specified myopathies Carcinoid syndrome Hypoglycemia Obstructive sleep apnea Medical History History of small bowel obstruction (~2013) History of colon polyps History of skin cancer Antibiotic-induced yeast infection PRONE TO YEAST INFECTIONS WITH ANTIBIOTIC USE Seasonal allergies Family history of reaction to anesthesia SISTER, N&V Lung nodules MONITORS Adrenal adenoma Carcinoid tumor of colon History of claustrophobia MILD Hypercholesterolemia DENIES Nasal cavity polyp Mild obstructive sleep apnea CPAP Osteoporosis Chronic rhinitis Langerhans cell histiocytosis ? History of CVA (cerebrovascular accident) HX STROKE AGE 49 / HX UNCONTROLLED BP AFTER STROKE , NOW RESOLVED Gastroparesis DENIES GERD (gastroesophageal reflux disease) Surgical History History of surgery REMOTE HX FOR REMOVAL OF SKIN CA History of Mohs micrographic surgery for skin cancer History of lung biopsy H/O hysterectomy with oophorectomy S/P thoracotomy DENIES , REPORTS HX LUNG BIOPSY Hx of exploratory laparotomy HX BOWEL OBSTRUCTION S/P appendectomy H/O: hysterectomy TOTAL Family History Father Myocardial infarction Hypertension Mother Congestive heart failure Hypertension Grandfather (Paternal) Myocardial infarction Grandfather (Maternal) Myocardial infarction Grandmother Colorectal cancer Other Atrial fibrillation Family history of diabetes mellitus Social History Smoking Status: Former smoker Tobacco Type: Cigarettes Age Started Using Tobacco: 16; Age Quit Using Tobacco: 63; packs per day: 0.75; Second Hand Exposure: No; Do You Dip or Chew Tobacco: No; Hx Alcohol Use: Yes Alcohol type: wine Hx Substance Use: No Preferred Language: Syriac Communication Ability: Effective Maintenance Porter Required: No Beliefs That Will Affect Care: None marital status: Current Living Situation: Spouse current occupational status: retired Feels Safe at Home: Yes Seatbelt Use: always Sunscreen Use: Yes Assistive Devices: CPAP and Glasses Physical Exam Physical Exam: General: A&Ox3. NAD. Cooperative. HEENT: Atraumatic, normocephalic. Vision and hearing intact. Pupils equal and reactive to light Pulm: CTAB A&P. -wheezes, -rales, -rhonchi. Symmetrical chest rise. No increased work of breathing. No respiratory distress. Cardiac: RRR, -mrg. Radial pulses intact and symmetrical. Abdominal: Nontender, nondistended, soft. BS present. 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 No sensory deficits to soft touch Results & Data Results & Data Vital Signs (Past 12 Hours) Vital Signs Temp Pulse Resp BP Pulse Ox O2 Del Method 02/07/24 15:06 121 H 25 H 95 Room Air 02/07/24 15:00 132/88 02/07/24 14:30 141 H 18 104/70 92 Room Air 02/07/24 14:12 122 H 19 94 Room Air 02/07/24 14:00 136/70 02/07/24 13:45 120 H 30 H 94 Room Air 02/07/24 13:42 131 H 30 H 117/81 94 Room Air 02/07/24 13:33 145 H 27 H 106/68 94 Room Air 02/07/24 13:25 93 Room Air 02/07/24 13:25 Room Air 02/07/24 13:20 36.6 C 158 H 28 H 92/60 L 93 Room Air PG Care Time/CCT Total # of Minutes Spent Total Time Spent with Patient: Total time spent is greater than 50% in coordination of care (as documented) at patient's floor/unit and/or counseling patient: Coding Level of Care Code 41299 INT INP/OBS CARE 3/75MIN Diagnoses Atrial fibrillation with rapid ventricular response I48.91 Ischemic cerebrovascular accident (CVA) I63.9 HTN (hypertension) I10
[2024-02-07] MEDS: POTASSIUM CHLORIDE CRTAB 20 MEQ TABCR PO STA (18:00)
[2024-02-07] MEDS: MAGNESIUM OXIDE 400 MG TAB PO SCH (18:00)
[2024-02-07] MEDS ORDERED: CETIRIZINE HCL 10 MG TABLET PO PRN (18:48)
[2024-02-07] MEDS ORDERED: methylPREDNISolone 125 MG/2 ML VIAL IV ONE (18:56)
[2024-02-07] MEDS ORDERED: diphenhydrAMINE 50 MG/ML VIAL IV ONE (18:56)
[2024-02-07] MEDS: levETIRAcetam 500 MG TAB PO SCH (21:01)
[2024-02-07] MEDS: METOPROLOL TARTRATE 25 MG TAB PO SCH (21:01)
[2024-02-07] MEDS: hydrALAZINE TAB 50 MG TAB PO SCH (21:01)
[2024-02-07] MEDS: LOSARTAN POTASSIUM 25 MG TAB PO SCH (21:01)
[2024-02-07] MEDS: PANTOprazole 40 MG TAB PO SCH (21:01)
--- NOTE | 2024-02-08 07:06 | Electrocardiogram Report ---
Test Reason : Blood Pressure : / mmHG Vent. Rate : 141 BPM Atrial Rate : 000 BPM P-R Int : 000 ms QRS Dur : 084 ms QT Int : 334 ms P-R-T Axes : 000 056 -13 degrees QTc Int : 511 ms Atrial fibrillation with rapid ventricular response Nonspecific ST and T wave abnormality Abnormal ECG When compared with ECG of 09-NOV-2023 13:33, Atrial fibrillation has replaced Sinus rhythm Vent. rate has increased BY 72 BPM Inverted T waves have replaced nonspecific T wave abnormality in Inferior leads Confirmed by Pedro Hamilton ([id number]) on 02/08/2024 7:06:52 AM Referred By: Becky Tavarez Confirmed By:Pedro Hamilton
[2024-02-08] MEDS: ASPIRIN 81 MG CHEW PO SCH (08:34)
[2024-02-08] MEDS: FLUTICASONE FUROATE 100MCG 14 PUFFS/INHALER INH SCH (08:34)
[2024-02-08] MEDS: CLOPIDOGREL BISULFATE 75 MG TAB PO SCH (08:34)
[2024-02-08] MEDS: UMECLIDINIUM/VILANTEROL 62.5/25MCG 7 PUFFS/INHALER INH SCH (08:35)
[2024-02-08] MEDS: POTASSIUM CHLORIDE CRTAB 20 MEQ TABCR PO SCH (08:35)
[2024-02-08] MEDS: NIFEdipine EXTENDED REL 30 MG TABCR PO SCH (08:36)
[2024-02-08] MEDS ORDERED: NON-FORMULARY MEDICATION (Fluticasone-Umeclidin-Vilanter [Trelegy Ellipta] 100-62.5-25 mcg INH SCH (09:00)
--- NOTE | 2024-02-08 09:55 | Hospitalist Progress Note ---
Date of Service February 08, 2024 Assessment & Plan (1) Atrial fibrillation with rapid ventricular response: (2) Ischemic cerebrovascular accident (CVA): (3) HTN (hypertension): (4) Effusion, pericardium: Plan Atrial fibrillation with rapid ventricular response: Presented with A-fib RVR rates up to the 140s. Following Cardizem 10 mg, 5 mg, 5 mg had initial improved rate control and then converted to NSR Patient had been titrated off of beta-blockers as outpatient due to lighth eadedness however has had recurrence of RVR with this Metoprolol 12.5 mg tartrate twice daily restarted, uptitrate as tolerated rated and then consolidate to succinate CT with posterior pericardial effusion, no evidence of tamponade. Echo ordered to further characterize. Patient follows with [facility] cardiology, consulted No chest pain or chest pressure on admission CTA without evidence of PE Troponin mildly elevated 15.6, repeat pending. Suspect demand. BNP is very mildly elevated in the setting of RVR, clinically no signs of volume overloaded Anticoagulation contraindicated due to intracranial bleed S/p Watchman procedure at [facility] Magnesium 1.7, will give p.o. x 3 doses to optimize to goal of 2.0. Potassium 3.1, IV 20 mEq plus p.o. 60 mEq total ordered for repletion, goal 4.0. BMP daily Patient was treated for C. difficile 2 weeks ago with complete resolution of symptoms after 10 days of vancomycin but did have several days of diarrhea which likely explains her magnesium/potassium levels. 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 twice daily dose reduced to 25 mg twice daily to allow for metoprolol reinitiation, patient has had lightheadedness with multiple antihypertensives in the past - also on hydralazine 100mg po TID, nifedipine 30mg daily - monitor BP closely Chronic stable issues: GERD: Continue PPI COPD: No acute exacerbation. Continue inhalers DVT prophylaxis: Pharmacal prophylaxis contraindicated due to history of recent ICH. SCDs Disposition: PCU, possible d/c 24-48 hrs CODE STATUS: Full code Diet: Heart healthy Admission and Anticipated Discharge Date Admission Date: February 07, 2024 Subjective No acute events overnight Currently complaints of difficulty breathing but no other complaints Review of Systems Review of Systems: Comprehensive ROS completed Physical Exam Physical Exam: Gen: no acute distress, sitting in bed comfortably HEENT: normocephalic / atraumatic, anicteric, moist mucous membranes CVS: s1s2 nl, RRR, no M/R/G Lungs: CTAB Abd: + bowel sounds, soft, nontender, nondistended, no rigidity / guarding / rebound Ext: no edema Neuro: awake, alert Psych: non anxious Results & Data Results & Data Vital Signs (Past 12 Hours) Vital Signs Temp Pulse Pulse Resp BP Pulse Ox O2 Del Method 02/08/24 07:37 36.8 C 62 18 157/80 H 93 Room Air 02/08/24 07:27 61 02/08/24 03:19 36.5 C 66 18 136/78 96 Room Air 02/07/24 22:53 36.5 C 63 18 129/72 93 CPAP Laboratory Results Abnormal lab results 02/07/24 02/08/24 02/08/24 Range/Units 18:13 01:23 07:22 Troponin I High Sens 31.1 H D 18.9 H D 17.5 H (0-14) pg/ml 02/08/24 Range/Units 13:13 Troponin I High Sens 14.2 H (0-14) pg/ml Diagnostic Findings Venous Doppler Study 02/08/24 09:54 BILATERAL LOWER EXTREMITY VENOUS DOPPLER CLINICAL HISTORY: elevated d-dimer, r/o DVT COMPARISON STUDY: Right lower extremity venous Doppler ultrasound August 17, 2009. TECHNIQUE: Sonography of the deep venous system of the bilateral lower extremities was performed. Compression and augmentation were evaluated. FINDINGS: The bilateral common femoral, superficial femoral and popliteal veins were compressible. Augmentation was normal. Flow was shown within the deep calf vessels. IMPRESSION: No evidence of deep venous thrombus within the bilateral lower extremities. ACT 112: Negative or not required by law. Electronically signed by: Dean Vasquez M.D. 02/08/2024 11:38 AM PG Care Time/CCT Total # of Minutes Spent Total Time Spent with Patient: Total time spent is greater than 50% in coordination of care (as documented) at patient's floor/unit and/or counseling patient: Coding Level of Care Code 94430 SUB INP/OBS CARE 2/35MIN Diagnoses Atrial fibrillation with rapid ventricular response I48.91 Ischemic cerebrovascular accident (CVA) I63.9 HTN (hypertension) I10 Effusion, pericardium I31.39
--- NOTE | 2024-02-08 11:02 | Cardiology Consultation ---
Date of Consultation February 08, 2024 Assessment & Plan (1) Paroxysmal atrial fibrillation: (2) Effusion, pericardium: (3) Presence of Watchman left atrial appendage closure device: Plan 73-year-old female with history of paroxysmal atrial fibrillation and recent Watchman device implantation 01/30/2024 presents to emergency department with paroxysmal atrial fibrillation and rapid ventricular response after recent discontinuation of beta-kell therapy. CT evidence of pericardial effusion without tamponade physiology per echocardiogram. Patient converted to sinus rhythm with beta-kell therapy. Concerns regarding beta-kell side effects noted. Patient agreeable to r estart beta-kell therapy. Recommend metoprolol tartrate 12.5 mg 3 times daily. Symptoms reported with Toprol-XL 50 mg daily prior to admission. Consider reduction of hydralazine and/or nifedipine to reduce perceived side effects and allow for titration of beta-kell therapy. Continue clopidogrel due to recent implantation of Watchman device. Outpatient transesophageal echocardiogram scheduled 45 days post procedure. Recommend addition of colchicine 0.6 mg twice daily for 6-12 weeks. Reduce to 0.6 mg once daily if side effects reported. Repeat limited echocardiogram as outpatient in 7 to 14 days. Continue telemetry monitoring while hospitalized. Possible discharge in 24 to 48 hours pending clinical course. I spent a total of 65 minutes on the date of service in preparation, delivery, and documentation of the care provided to this patient, excluding any time spent in the performance of separately billed services. History of Present Illness Reason for Consultation: Atrial fibrillation with RVR, pericardial effusion Requesting Physician: Dr. Segun Rdz Attending Physician: Linsey Arreola MD History of Present Illness 73-year-old female presented to the emergency department with palpitations. ECG demonstrating atrial fibrillation with rapid ventricular response. Patient recently reduced metoprolol from 50 to 25 mg daily, however, approximately 7 days ago she discontinue beta-kell completely at the direction of her primary care physician. Patient reported fatigue and "feeling like a zombie" on beta- kell over the past few months. 31 mm watchman left atrial appendage closure device implanted at [facility] 01/30/2024 without complication. Recent history significant for ischemic cerebrovascular accident with hemor rhagic conversion in November 2023. She received TNK at [facility] with subsequent intracranial bleed (left parietal and parenchymal hemorrhage, posterior parietal subdural hematoma, along with trace scattered subarachnoid hemorrhage with about 3 mm midline shift). Transferred to [facility] for neurosurgery evaluation. Managed medically. Intermittent atrial fibrillation/flutter reported during hospitalization at [facility]. Cleared to restart oral anticoagulation by neurosurgery, however, due to concerns regarding bleeding risk on chronic anticoagulation, patient proceeded with Watchman device implantation at [facility]. Patient received beta-kell therapy in the ER per my direction. She subsequently converted to normal sinus rhythm at approximately 6 PM 02/07/2024. She remains in sinus rhythm at this time. present at bedside. Both patient and her voiced concern regarding side effects of beta-kell therapy. Reports symptoms including palpitations, chest heaviness, and dyspnea associated with rapid atrial fibrillation. CTA of the chest performed on admission demonstrating moderate circumferential pericardial effusion. Follow- up echocardiogram performed this a.m. demonstrates a small circumferential pericardial effusion without tamponade physiology. Allergies Allergy/AdvReac Type Severity Reaction Status Date / Time Iodinated Contrast Media Allergy Intermediate Hives Verified 02/07/24 15:52 mold Allergy Intermediate SNEEZING/CO Verified 02/07/24 15:52 NGESTION moxifloxacin [From Avelox] Allergy Intermediate ITCHING/YEAST Verified 02/07/24 15:52 INFECTION Tetracyclines Allergy Intermediate ? ITCH ALL Verified 02/07/24 15:46 OVER, PT NOT SURE adhesive Allergy Mild ITCHY RASH Verified 02/07/24 15:52 amlodipine AdvReac Intermediate FATIGUE/CON Verified 02/07/24 15:52 STIPATION cefuroxime AdvReac Intermediate CAUSED C. Verified 02/07/24 15:52 DIFF INFECTION Home Medications Medication Instructions Recorded Confirmed Type acetaminophen 500 mg tablet 500 mg PO Q6H PRN Pain 01/30/19 02/07/24 History (Tylenol Extra Strength) cetirizine 10 mg capsule (Zyrtec) 10 mg PO DAILY PRN Allergy Symptoms 09/10/19 02/07/24 History fluticasone propionate 50 2 spray intranasal DAILY PRN 04/13/22 02/07/24 History mcg/actuation nasal Allergy Symptoms spray,suspension (Flonase Allergy Relief) clopidogrel 75 mg tablet 75 mg PO QAM 09/12/22 02/07/24 History metoclopramide HCl 10 mg tablet 10 mg PO TID 10/04/22 02/07/24 History albuterol sulfate 90 mcg/actuation 2 puff inhalation Q4H PRN 10/25/22 02/07/24 Rx aerosol inhaler (Ventolin HFA) Shortness Of Breath #3 Inhalers denosumab 60 mg/mL subcutaneous 60 mg subcut Q6MO 02/07/23 02/07/24 History syringe (Prolia) esomeprazole magnesium 40 mg 40 mg PO QPM #90 caps 03/12/23 02/07/24 Rx capsule,delayed release metoprolol succinate 25 mg 25 mg PO BID 04/11/23 02/07/24 History tablet,extended release 24 hr fluticasone fur. 100 mcg-umeclid 1 inh inhalation DAILY #3 Inhalers 12/25/23 02/07/24 Rx 62.5 mcg-vilant 25 mcg inhalat.powder (Trelegy Ellipta) aspirin 81 mg chewable tablet 81 mg PO DAILY 02/07/24 02/07/24 History hydralazine 100 mg tablet 100 mg PO TID 02/07/24 02/07/24 History levetiracetam 500 mg tablet 500 mg PO BID 02/07/24 02/07/24 History (Keppra) losartan 50 mg tablet 50 mg PO BID 02/07/24 02/07/24 History multivitamin 1 tab PO QAM 02/07/24 02/07/24 History nifedipine 30 mg tablet,extended 30 mg PO DAILY 02/07/24 02/07/24 History release tramadol 50 mg tablet 50 mg PO Q4H PRN Pain 02/07/24 02/07/24 History Patient History Medical History History of small bowel obstruction (~2013) History of colon polyps History of skin cancer Antibiotic-induced yeast infection PRONE TO YEAST INFECTIONS WITH ANTIBIOTIC USE Seasonal allergies Family history of reaction to anesthesia SISTER, N&V Lung nodules MONITORS Adrenal adenoma Carcinoid tumor of colon History of claustrophobia MILD Hypercholesterolemia DENIES Nasal cavity polyp Mild obstructive sleep apnea CPAP Osteoporosis Chronic rhinitis Langerhans cell histiocytosis ? History of CVA (cerebrovascular accident) HX STROKE AGE 49 / HX UNCONTROLLED BP AFTER STROKE , NOW RESOLVED Gastroparesis DENIES GERD (gastroesophageal reflux disease) Surgical History History of surgery REMOTE HX FOR REMOVAL OF SKIN CA History of Mohs micrographic surgery for skin cancer History of lung biopsy H/O hysterectomy with oophorectomy S/P thoracotomy DENIES , REPORTS HX LUNG BIOPSY Hx of exploratory laparotomy HX BOWEL OBSTRUCTION S/P appendectomy H/O: hysterectomy TOTAL Family History Father Myocardial infarction Hypertension Mother Congestive heart failure Hypertension Grandfather (Paternal) Myocardial infarction Grandfather (Maternal) Myocardial infarction Grandmother Colorectal cancer Other Atrial fibrillation Family history of diabetes mellitus Social History Smoking Status: Former smoker Tobacco Type: Cigarettes Age Started Using Tobacco: 16; Age Quit Using Tobacco: 63; packs per day: 0.75; Second Hand Exposure: No; Do You Dip or Chew Tobacco: No; Hx Alcohol Use: Yes Alcohol type: wine Hx Substance Use: No Preferred Language: Upper Sorbian Communication Ability: Effective Glass Curvature Gauger Required: No Beliefs That Will Affect Care: None marital status: Current Living Situation: Spouse current occupational status: retired Other Information That Helps Us Care for You: No Feels Safe at Home: Yes Safety Concerns: Feels Safe At This Time Seatbelt Use: always Sunscreen Use: Yes Assistive Devices: CPAP and Glasses Review of Systems Review of Systems: All systems reviewed & are unremarkable except as noted in Subjective Physical Exam Constitutional: well nourished; no acute distress Respiratory: no respiratory distress, no labored breathing and no retractions Auscultation: lungs clear to auscultation bilaterally; no crackles, no rales, no rhonchi and no wheezes Cardiovascular: Rate/Rhythm: regular rate and regular rhythm Heart Sounds: normal S1 and normal S2; no murmur Vessels: radial pulses present; no JVD and no carotid bruit Extremities: no edema Gastrointestinal (Abdomen): Inspection/Auscultation: abdomen normal to inspection and normal bowel sounds; abdomen not distended Percussion/Palpation: abdomen soft; abdomen nontender, no guarding and abdomen not rigid Neurologic: CN's II-XI intact bilaterally and moves all extremities; no focal motor deficits Results & Data Vital Signs (Past 12 Hours) Vital Signs Temp Pulse Pulse Resp BP Pulse Ox O2 Del Method 02/08/24 07:37 36.8 C 62 18 157/80 H 93 Room Air 02/08/24 07:27 61 02/08/24 03:19 36.5 C 66 18 136/78 96 Room Air Laboratory Results Cardiac Enzymes 02/07/24 02/07/24 02/08/24 Range/Units 13:40 18:13 01:23 AST 22 (13-39) U/L Troponin I High Sens 15.6 H 31.1 H D 18.9 H D (0-14) pg/ml B-Natriuretic Peptide 242 H (0-100) pg/ml 02/08/24 Range/Units 07:22 AST (13-39) U/L Troponin I High Sens 17.5 H (0-14) pg/ml B-Natriuretic Peptide (0-100) pg/ml Coagulation 02/07/24 Range/Units 13:40 PT 11.1 (9.0-12.0) Seconds APTT 31 (21-31) Seconds B-Natriuretic Peptide 242 H (0-100) pg/ml CBC 02/07/24 Range/Units 13:40 WBC 7.72 (4.8-10.8) K/ul RBC 4.49 (4.20-5.40) M/uL Hgb 13.9 (12.0-16.0) g/dl Hct 41.4 (37.0-47.0) % Plt Count 405 H (130-400) K/uL Neut # (Auto) 5.56 (1.40-6.50) K/uL Lymph # (Auto) 1.11 L (1.20-3.40) K/uL [place] # (Auto) 0.94 H (0.11-0.59) K/uL Eos # (Auto) 0.04 (0.00-0.50) K/uL Baso # (Auto) 0.03 (0.00-0.20) K/uL Comprehensive Metabolic Panel 02/07/24 Range/Units 13:40 Sodium 134 L (136-145) mmol/L Potassium 3.1 L (3.5-5.1) mmol/L Chloride 103 (98-107) mmol/L Carbon Dioxide 21 (21-32) mmol/L BUN 8 (6-23) mg/dl Creatinine 0.57 L (0.6-1.2) mg/dl Glucose 138 H (70-99(Fasting)) mg/dl Calcium 9.9 (8.6-10.3) mg/dl AST 22 (13-39) U/L ALT 25 (7-52) U/L Alkaline Phosphatase 73 (34-104) U/L Total Protein 7.4 (6.0-8.3) gm/dl Albumin 4.2 (3.4-5.0) gm/dl Intake and Output 02/07/24 02/08/24 02/08/24 22:59 06:59 14:59 Intake Total 1600 / 1600 Balance 1600 / 1600 Intake: IV 1300 / 1300 Magnesium Sulfate / D5w 1 gm In 100 / 100 100 ml @ 100 mls/hr IV NOW STA Rx#:[id number] Potassium Chloride / Wtr 10 meq 200 / 200 In 100 ml @ 100 mls/hr IV ONE ONE Rx#:[id number] Sodium Chloride 0.9% 500 ml @ 500 / 500 999 mls/hr IV .Q31M ONE Rx#: [id number] Sodium Chloride 0.9% 500 ml @ 500 / 500 999 mls/hr IV .Q31M [facility] Rx#: [id number] Oral 300 / 300 Other: # Unmeasured Voids 1 Weight 63.594 kg 68.6 kg Weight Measurement Method Built in [facility] Built in [facility]
--- NOTE | 2024-02-08 11:40 | Ultrasound Report ---
BILATERAL LOWER EXTREMITY VENOUS DOPPLER CLINICAL HISTORY: elevated d-dimer, r/o DVT COMPARISON STUDY: Right lower extremity venous Doppler ultrasound August 17, 2009. TECHNIQUE: Sonography of the deep venous system of the bilateral lower extremities was performed. Co mpression and augmentation were evaluated. FINDINGS: The bilateral common femoral, superficial femoral and popliteal veins were compressible. A ugmentation was normal. Flow was shown within the deep calf vessels. IMPRESSION: No evidence of deep venous thrombus within the bilateral lower extremities. ACT 112: Negative or not required by law. Electronically signed by: Dean Vasquez M.D. 02/08/2024 11:38 AM
[2024-02-08] MEDS: METOPROLOL TARTRATE 25 MG TAB PO SCH (13:23)
[2024-02-08] MEDS: ALBUTEROL HFA 8 GM INHALER INH PRN (21:37)
[2024-02-09 05:14] LABS: Hematocrit (blood only) 37.8 % (37.0-47.0); Hemoglobin 12.5 g/dl (12.0-16.0); Mean Corpuscular Hemoglobin 31.2 pg (25.0-34.0); Mean Corpuscular Hgb Conc 33.1 g/dL (32.0-36.0); Mean Corpuscular Volume 94.3 fL (80.0-100.0); Mean Platelet Volume 9.2 fL (9.4-12.4); Platelet Count 377 K/uL (130-400); RDW Coefficient of Variation 12.6 % (11.5-14.5); Red Blood Count 4.01 M/uL (4.20-5.40); White Blood Count 6.74 K/ul (4.8-10.8)
[2024-02-09 05:30] LABS: BUN Creatinine Ratio 20.9 (10-20); Calcium 8.9 mg/dl (8.6-10.3); Creatinine Clr Calc Pharmacy 55.4 ml/min; Est GFR (African American) 77.7 ml/min; Phosphorus 3.9 mg/dl (2.5-4.9); Potassium 4.2 mmol/L (3.5-5.1)
--- NOTE | 2024-02-09 08:28 | Hospitalist Progress Note ---
Date of Service February 09, 2024 Assessment & Plan (1) Atrial fibrillation with rapid ventricular response: (2) Ischemic cerebrovascular accident (CVA): (3) HTN (hypertension): (4) Effusion, pericardium: Plan Atrial fibrillation with rapid ventricular response: Presented with A-fib RVR rates up to the 140s. Following Cardizem 10 mg, 5 mg, 5 mg had initial improved rate control and then converted to NSR Patient had been titrated off of beta-blockers as outpatient due to lighth eadedness however has had recurrence of RVR with this CT with posterior pericardial effusion, no evidence of tamponade. Echo ordered to further characterize. Patient follows with [facility] cardiology, consulted No chest pain or chest pressure on admission - discussed with [facility], metoprolol stopped and pt started on diltiazem CTA without evidence of PE Troponin mildly elevated 15.6, trended flat. Suspect demand. BNP is very mildly elevated in the setting of RVR, clinically no signs of volume overloaded Anticoagulation contraindicated due to intracranial bleed S/p Watchman procedure at [facility] #Bradycardia - suspect in the setting of increased frequency - discussed with cards, metoprolol stopped and pt started on diltiazem #Posterior pericardial effusion - ECHO report pending - discussed with cards, recs appreciated, plan for colchicine 0.6mg daily #HTN - on hydralazine, losartan, diltiazem #Hypomagnesemia #Hypokalemia - replete and monitor #Elevated D-dimer - CTA without evidence of PE - LE duplex negative for DVT #Ischemic cerebrovascular accident (CVA): - 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 difficile 2 weeks ago with complete resolution of symptoms after 10 days of vancomycin but did have several days of diarrhea (likely contributed to her admission magnesium/potassium levels) Chronic stable issues: GERD: Continue PPI COPD: No acute exacerbation. Continue inhalers DVT prophylaxis: Pharmacal prophylaxis contraindicated due to history of recent ICH. SCDs Disposition: PCU, possible d/c 24-48 hrs CODE STATUS: Full code Diet: Heart healthy 02/08: pt's at bedside Admission and Anticipated Discharge Date Admission Date: February 07, 2024 Subjective No acute events overnight Currently complaints of difficulty breathing but no other complaints Review of Systems Review of Systems: Comprehensive ROS completed Physical Exam Physical Exam: Gen: no acute distress, sitting in bed comfortably HEENT: normocephalic / atraumatic, anicteric, moist mucous membranes CVS: s1s2 nl, RRR, no M/R/G Lungs: CTAB Abd: + bowel sounds, soft, nontender, nondistended, no rigidity / guarding / rebound Ext: no edema Neuro: awake, alert Psych: non anxious Results & Data Results & Data Vital Signs (Past 12 Hours) Vital Signs Temp Pulse Pulse Resp BP Pulse Ox O2 Del Method 02/09/24 08:21 36.5 C 54 L 18 183/80 H 95 Room Air 02/09/24 08:16 54 L 02/09/24 03:11 36.8 C 55 L 17 156/77 H 93 CPAP 02/09/24 00:18 36.9 C 56 L 18 158/85 H 95 CPAP 02/08/24 22:30 58 L 02/08/24 21:38 67 19 91 Room Air PG Care Time/CCT Total # of Minutes Spent Total Time Spent with Patient: Total time spent is greater than 50% in coordination of care (as documented) at patient's floor/unit and/or counseling patient: Coding Level of Care Code 31119 SUB INP/OBS CARE 3/50MIN Diagnoses Atrial fibrillation with rapid ventricular response I48.91 Ischemic cerebrovascular accident (CVA) I63.9 HTN (hypertension) I10 Effusion, pericardium I31.39
[2024-02-09] MEDS: COLCHICINE 0.6 MG TAB PO SCH (08:30)
--- NOTE | 2024-02-09 10:33 | Cardiology Progress Note ---
<Statement entered by Danielle Steve DO - 02/09/24 11:53> I have reviewed the advanced practitioner's documentation on the date of service referenced in note, and I agree with, and take responsibility for the plan of care. Pt seen in cardiology f/u due to pAF; she has converted to SR. Earlier this morning she was reporting SOB/bronchospasm-she got a nebulizer and when I saw her she felt slightly better. Not sure if the BB is contributing to possibly bronchospasms resulting in her SOB-?not sure if her muscular dystrophy and h/o COPD is also contributing. Her SOB does not appear to be cardiac in nature though. I would stop her metropolol and start diltiazem. since starting diltiazem we will stop nifidepine monitor on telemetry she has a watchman so no AC needed will continue to follow with you Date of Service February 09, 2024 Assessment & Plan (1) Paroxysmal atrial fibrillation: (2) Effusion, pericardium: (3) Presence of Watchman left atrial appendage closure device: Plan 73-year-old female with history of paroxysmal atrial fibrillation and recent Watchman device implantation 01/30/2024. Patient presented to the ER with symptomatic paroxysmal atrial fibrillation and rapid ventricular response after following recent discontinuation of beta-kell therapy. CT evidence of pericardial effusion without tamponade physiology per echocardiogram. Patient converted to sinus rhythm with beta-kell therapy. Dyspnea is difficult to discern. Patient maintaining sinus rhythm over the last 24 hours. Examination without overt volume overload. Pericardial effusion noted; she is not hypotensive or tachycardic and does not have JVD. Patient with concerns regarding beta-kell side effects, currently on metoprolol tartrate 12.5 mg 3 times daily. Recommendations: Portable chest x-ray, EKG Stop metoprolol tartrate 12.5 mg TID Stop nifedipine 30 mg/day Trial Cardizem CD 120 mg/day Continue colchicine, 0.6 mg ONCE daily given concurrent use of Cardizem, weight less than 70 kg Repeat limited resting echocardiogram as outpatient in 7 to 14 days, unless symptoms dictate a need for sooner evaluation Continue clopidogrel due to recent implantation of Watchman device. Outpatient transesophageal echocardiogram scheduled 45 days post procedure. I spent a total of 50 minutes on the date of service in preparation, delivery, and documentation of the care provided to this patient excluding any time spent in the performance of separately billed services. This visit was a split-shared visit with the substantive portion of the medical decision making performed by the supervising radio repairman/billing provider. Admission and Anticipated Discharge Date Admission Date: February 07, 2024 Subjective Patient seen and examined. Chart, medications, and telemetry reviewed. at bedside. Variable sporadic difficulty breathing, occasionally with difficulty taking a deep breath, worsen with ambulation. No pleuritic chest pain. No angina. No tachypalpitations. ? Orthopnea. No PND. No peripheral edema. No dizziness, near syncope, or true syncope. No fevers. No chills. Telemetry: Sinus maintaining sinus rhythm over the last 24 hours, currently with heart rates in the 60s. Occasional premature atrial complexes. February 08, 2024 TTE: Small circumferential pericardial effusion with moderate organization. Largest volume of fluid adjacent to the posterior wall and right atrium. No echocardiographic indications of cardiac tamponade. Normal IVC diameter and respiratory variation suggesting normal central venous pressure. Left ventricular ejection fraction 60 to 65%. Mild concentric LVH. Moderately dilated left atrium. Grade 1 diastolic dysfunction. Borderline anterior mitral valve prolapse. Mild mitral regurgitation. Review of Systems Review of Systems: See above. Physical Exam Physical Exam: General: A&Ox3. NAD. HENT: Normocephalic. Atraumatic. Eyes: PER. Conjunctiva pink, sclera clear. Neck: No JVD. No HJR. Heart: RRR, 64 bpm. No rub. No murmur. Lungs: Clear to auscultation. Abdomen: +BS. Soft. Nontender. No masses or organomegaly. Extremities: No peripheral edema. No clubbing. No cyanosis. Limited neurological examination is without focal deficits. Pulses: Posterior tibial=2/4. Results & Data Vital Signs (Past 12 Hours) Vital Signs Temp Pulse Pulse Resp BP Pulse Ox O2 Del Method 02/09/24 09:20 64 136/68 02/09/24 08:21 36.5 C 54 L 18 183/80 H 95 Room Air 02/09/24 08:16 54 L 02/09/24 03:11 36.8 C 55 L 17 156/77 H 93 CPAP 02/09/24 00:18 36.9 C 56 L 18 158/85 H 95 CPAP 02/08/24 22:30 58 L Laboratory Results Cardiac Enzymes 02/08/24 Range/Units 13:13 Troponin I High Sens 14.2 H (0-14) pg/ml CBC 02/09/24 Range/Units 04:30 WBC 6.74 (4.8-10.8) K/ul RBC 4.01 L (4.20-5.40) M/uL Hgb 12.5 (12.0-16.0) g/dl Hct 37.8 (37.0-47.0) % Plt Count 377 (130-400) K/uL Comprehensive Metabolic Panel 02/09/24 Range/Units 04:30 Sodium 135 L (136-145) mmol/L Potassium 4.2 D (3.5-5.1) mmol/L Chloride 106 (98-107) mmol/L Carbon Dioxide 23 (21-32) mmol/L BUN 18 (6-23) mg/dl Creatinine 0.86 (0.6-1.2) mg/dl Glucose 86 (70-99(Fasting)) mg/dl Calcium 8.9 (8.6-10.3) mg/dl Intake and Output 02/08/24 02/09/24 02/09/24 22:59 06:59 14:59 Intake Total 300 / 930 150 / 930 Balance 300 / 930 150 / 930 Intake: Oral 300 / 930 150 / 930 Other: # Unmeasured Voids 1 2 Weight 68.5 kg Weight Measurement Method Built in [facility]
--- NOTE | 2024-02-09 11:53 | XRay Report ---
XR chest 1V portable CLINICAL HISTORY: sob TECHNIQUE: Single frontal radiograph of the chest was obtained. Comparison: Comparison is made to chest radiograph 02/06/2014 FINDINGS: No lines and tubes are seen. Cardiomegaly is noted. The aortic arch is calcified. The lungs are clear . No evidence of pleural effusion or pneumothorax. IMPRESSION: No acute chest disease. Cardiomegaly is noted. ACT 112: Negative or not required by law. Electronically signed by: Gagandeep Fernandez M.D. 02/09/2024 11:52 AM
[2024-02-09] MEDS: dilTIAZem HCL 120 MG CAPCR PO SCH (13:13)
--- NOTE | 2024-02-09 13:33 | Electrocardiogram Report ---
Test Reason : Blood Pressure : / mmHG Vent. Rate : 056 BPM Atrial Rate : 056 BPM P-R Int : 172 ms QRS Dur : 084 ms QT Int : 532 ms P-R-T Axes : 040 041 009 degrees QTc Int : 513 ms Sinus bradycardia with Premature atrial complexes Incomplete right bundle branch block Low voltage QRS Poor R wave progression, consider anterior UT vs. lead placement vs. LVH Abnormal ECG When compared with ECG of 07-FEB-2024 13:33, Atrial fibrillation no longer present HR has decreased by 85 bpm Confirmed by Pal Mendoza ([id number]) on 02/09/2024 1:32:57 PM Referred By: Becky Tavarez Confirmed By:Pal Mendoza
[2024-02-10 06:37] LABS: Hematocrit (blood only) 41.5 % (37.0-47.0); Hemoglobin 13.8 g/dl (12.0-16.0); Mean Corpuscular Hemoglobin 30.7 pg (25.0-34.0); Mean Corpuscular Hgb Conc 33.3 g/dL (32.0-36.0); Mean Corpuscular Volume 92.4 fL (80.0-100.0); Mean Platelet Volume 9.3 fL (9.4-12.4); Platelet Count 417 K/uL (130-400); RDW Coefficient of Variation 12.5 % (11.5-14.5); RDW Standard Deviation 42.6 fL (36.4-46.3); Red Blood Count 4.49 M/uL (4.20-5.40); White Blood Count 9.18 K/ul (4.8-10.8)
[2024-02-10 06:54] LABS: BUN Creatinine Ratio 24.3 (10-20); Calcium 9.7 mg/dl (8.6-10.3); Creatinine Clr Calc Pharmacy 61.8 ml/min; Est GFR (African American) 99.6 ml/min; Potassium 4.3 mmol/L (3.5-5.1)
--- NOTE | 2024-02-10 08:13 | Hospitalist Progress Note ---
Date of Service February 10, 2024 Assessment & Plan (1) Atrial fibrillation with rapid ventricular response: (2) Ischemic cerebrovascular accident (CVA): (3) HTN (hypertension): (4) Effusion, pericardium: Plan Atrial fibrillation with rapid ventricular response: Presented with A-fib RVR rates up to the 140s. Following Cardizem 10 mg, 5 mg, 5 mg had initial improved rate control and then converted to NSR Patient had been titrated off of beta-blockers as outpatient due to lighth eadedness however has had recurrence of RVR with this CT with posterior pericardial effusion, no evidence of tamponade. Echo ordered to further characterize. Patient follows with [facility] [place] cardiology, consulted No chest pain or chest pressure on admission CTA without evidence of PE Troponin mildly elevated 15.6, trended flat. Suspect demand. BNP is very mildly elevated in the setting of RVR, clinically no signs of volume overloaded Anticoagulation contraindicated due to intracranial bleed S/p Watchman procedure at [facility] [place] - cards on board, pt placed on diltiazem gtt #Bradycardia - resolved - suspect in the setting of increased frequency - discussed with cards, metoprolol stopped and pt started on diltiazem #Posterior pericardial effusion - ECHO reviewed - cards recs appreciated, cont colchicine 0.6mg daily #HTN - on hydralazine, losartan, diltiazem #Hypomagnesemia #Hypokalemia - replete and monitor #Elevated D-dimer - CTA without evidence of PE - LE duplex negative for DVT #Ischemic cerebrovascular accident (CVA): - 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 difficile 2 weeks ago with complete resolution of symptoms after 10 days of vancomycin but did have several days of diarrhea (likely contributed to her admission magnesium/potassium levels) Chronic stable issues: GERD: Continue PPI COPD: No acute exacerbation. Continue inhalers DVT prophylaxis: Pharmacal prophylaxis contraindicated due to history of recent ICH. SCDs Disposition: PCU, pending heart rate control CODE STATUS: Full code Diet: Heart healthy 02/08: pt's at bedside Admission and Anticipated Discharge Date Admission Date: February 07, 2024 Subjective Pt is currently back in RVR She states her breathing is better Review of Systems Review of Systems: Comprehensive ROS completed Physical Exam Physical Exam: Gen: no acute distress, sitting in bed comfortably HEENT: normocephalic / atraumatic, anicteric, moist mucous membranes CVS: s1s2 nl, irregular / tachycardic, no M/R/G Lungs: CTAB Abd: + bowel sounds, soft, nontender, nondistended, no rigidity / guarding / rebound Ext: no edema Neuro: awake, alert Psych: non anxious Results & Data Results & Data Vital Signs (Past 12 Hours) Vital Signs Temp Pulse Pulse Resp BP Pulse Ox O2 Del Method 02/10/24 07:24 36.7 C 81 18 148/91 H 96 Room Air 02/10/24 03:13 36.5 C 78 17 151/74 H 94 Room Air 02/09/24 23:13 36.7 C 74 17 149/67 H 94 CPAP 02/09/24 22:45 68 PG Care Time/CCT Total # of Minutes Spent Total Time Spent with Patient: Total time spent is greater than 50% in coordination of care (as documented) at patient's floor/unit and/or counseling patient: Coding Level of Care Code 78804 SUB INP/OBS CARE 3/50MIN Diagnoses Atrial fibrillation with rapid ventricular response I48.91 Ischemic cerebrovascular accident (CVA) I63.9 HTN (hypertension) I10 Effusion, pericardium I31.39
[2024-02-10] MEDS: ACETAMINOPHEN 325 MG TAB PO PRN (08:20)
[2024-02-10] MEDS: METOPROLOL TARTRATE 1 MG/ML VIAL IV PRN (08:43)
[2024-02-10] MEDS ORDERED: STAT IV Infusion **Titration per Protocol STA (09:06)
--- NOTE | 2024-02-10 09:08 | Cardiology Progress Note ---
<Statement entered by Danielle Steve, DO - 02/10/24 14:12> I have reviewed the advanced practitioner's documentation and agree with the plan of care. I accept the responsibility for the associated risk. pt seen in cardiology f/u earlier this morning due to recurrent pAF symptomatic she went back into AF today with RVR-she got her dose of diltiazem and i recommended starting a drip; it was started at a rate of 5 and her ventricular rates came down slightly and her SOB was slightly better-family was at the bedside when i saw her-i spoke with the nurse if the HR are still up around 1pm then we should increase the dilitazem drip to 10; can stop the drip if she converst to SR; but continue PO diltiazem while on the drip. the SOB with the pAF is different then the SOB she had yesterday with which was more bronchoconstriction she can tell the difference; recommend giving xopenex rather than albuterol given the tachycardia unfortunately we are limited with anti-arrhythmic agents given the degree of COPD/muscular dystrophy and bronchospasms and prior PFTs in jul showed decreased DCLO-amio is not a good option; sotalol either given the bronchoconstriction w ith the BB. tikosyn might be an option but i think at this juncture best to see if we can get away with possibly diltiazem or verapamil. repeat echo today shows effusion is still present no real change in size. Pt is on colchicine for assumed procedural related pericarditis. ?although she is not having chest pain-?if a course of prednisone would be beneficial? will try giving 20mg BID PO today and then possibly taper down every 3 days with a slow taper over 2 weeks (so 40mg daily for 3 days then 30mg for 3 days then 20mg for 3 days then 10mg for 3 days then 5mg for 3 days) as well as I will increase the colchicine to BID-possbily some inflammation is triggering the AF I discussed my recommendations with the hospitalist today and they agreed with my plan. Dr. Steve Date of Service February 10, 2024 Assessment & Plan (1) Paroxysmal atrial fibrillation: (2) Effusion, pericardium: (3) Presence of Watchman left atrial appendage closure device: Plan Recurrent symptomatic atrial fibrillation/atypical flutter with a rapid ventricular response. Status post Watchman device implantation on 01/30/2024. Pericardial effusion without tamponade physiology per initial echocardiogram. Dyspnea improved off of beta-kell therapy. Examination without volume overload. Recommendations: 1. Antiarrhythmic therapy considered however patient with documented difficulty tolerating low-dose beta-kell therapy and I am concerned regarding the use of amiodarone given her COPD, reduced DLCO via July 2023 PFTs, muscular dystrophy, tremor, GI issues. 2. Patient received oral Cardizem 120 mg/day at 08:21 AM. 3. Start a diltiazem drip 4. Limited TTE to reassess the pericardial effusion 5. Continue colchicine, 0.6 mg ONCE daily given concurrent use of Cardizem, weight less than 70 kg 6. Clopidogrel prescribed due to recent implantation of Watchman device; outp atient transesophageal echocardiogram scheduled 45 days post procedure. I spent a total of 38 minutes on the date of service in preparation, delivery, and documentation of the care provided to this patient excluding any time spent in the performance of separately billed services. This visit was a split-shared visit with the substantive portion of the medical decision making performed by the supervising high speed warper tender/billing provider. Admission and Anticipated Discharge Date Admission Date: February 07, 2024 Subjective Patient seen and examined. Chart, medications, and telemetry reviewed. Awoke feeling good. Developed tachypalpitations when her breakfast tray arrived. Telemetry reviewed, revealing atrial fibrillation versus atypical flutter with heart rates up to 160 bpm at 08:28 AM Received oral diltiazem 120 mg at that time and notes some improvement, still wi th tachypalpitations. Breathing seems to be OK at present, better than yesterday. No dizziness or near syncope. No chest pain. No peripheral edema. Review of Systems Review of Systems: See above. Physical Exam Physical Exam: General: A&Ox3. NAD. HENT: Normocephalic. Atraumatic. Eyes: PER. Conjunctiva pink, sclera clear. Neck: No JVD. No HJR. Heart: Distant heart sounds, slightly irregular, 140 bpm. No rub. Lungs: Clear to auscultation. Abdomen: +BS. Soft. Nontender. No masses or organomegaly. Extremities: No peripheral edema. No clubbing. No cyanosis. Limited neurological examination is without focal deficits. Pulses: Posterior tibial=2/4. Results & Data Vital Signs (Past 12 Hours) Vital Signs Temp Pulse Pulse Resp BP BP Pulse Ox 02/10/24 08:43 163 H 129/95 02/10/24 07:24 36.7 C 81 18 148/91 H 96 02/10/24 03:13 36.5 C 78 17 151/74 H 94 02/09/24 23:13 36.7 C 74 17 149/67 H 94 02/09/24 22:45 68 O2 Del Method 02/10/24 08:43 02/10/24 07:24 Room Air 02/10/24 03:13 Room Air 02/09/24 23:13 CPAP 02/09/24 22:45 Laboratory Results CBC 02/10/24 Range/Units 05:08 WBC 9.18 (4.8-10.8) K/ul RBC 4.49 (4.20-5.40) M/uL Hgb 13.8 (12.0-16.0) g/dl Hct 41.5 (37.0-47.0) % Plt Count 417 H (130-400) K/uL Comprehensive Metabolic Panel 02/10/24 Range/Units 05:08 Sodium 135 L (136-145) mmol/L Potassium 4.3 (3.5-5.1) mmol/L Chloride 104 (98-107) mmol/L Carbon Dioxide 22 (21-32) mmol/L BUN 17 (6-23) mg/dl Creatinine 0.70 (0.6-1.2) mg/dl Glucose 91 (70-99(Fasting)) mg/dl Calcium 9.7 (8.6-10.3) mg/dl Intake and Output 02/09/24 02/10/24 02/10/24 22:59 06:59 14:59 Intake Total 325 / 685 Balance 325 / 685 Intake: Oral 325 / 685 Other: # Unmeasured Voids 1 1 Weight 62.8 kg Weight Measurement Method Built in [facility] Diagnostic Findings February 08, 2024 TTE: Small circumferential pericardial effusion with moderate organization. Largest volume of fluid adjacent to the posterior wall and right atrium. No echocardiographic indications of cardiac tamponade. Normal IVC diameter and respiratory variation suggesting normal central venous pressure. Left ventricular ejection fraction 60 to 65%. Mild concentric LVH. Moderately dilated left atrium. Grade 1 diastolic dysfunction. Borderline anterior mitral valve prolapse. Mild mitral regurgitation.
[2024-02-10] MEDS: dilTIAZem HCL 125 MG in DEXTROSE 5% 100 ML IV SCH (09:28)
[2024-02-10] MEDS ORDERED: LEVALBUTEROL 0.31MG/3 ML VIAL NEB PRN (10:43)
[2024-02-10] MEDS: predniSONE 20 MG TAB PO SCH (15:03)
[2024-02-10] MEDS: COLCHICINE 0.6 MG TAB PO SCH (20:06)
[2024-02-11 06:27] LABS: Hematocrit (blood only) 41.3 % (37.0-47.0); Mean Corpuscular Hemoglobin 30.9 pg (25.0-34.0); Mean Corpuscular Hgb Conc 33.9 g/dL (32.0-36.0); Mean Corpuscular Volume 91.2 fL (80.0-100.0); Mean Platelet Volume 9.3 fL (9.4-12.4); Platelet Count 443 K/uL (130-400); RDW Coefficient of Variation 12.3 % (11.5-14.5); Red Blood Count 4.53 M/uL (4.20-5.40); White Blood Count 12.71 K/ul (4.8-10.8)
[2024-02-11 06:49] LABS: BUN Creatinine Ratio 27.4 (10-20); Calcium 9.8 mg/dl (8.6-10.3); Creatinine Clr Calc Pharmacy 59.3 ml/min; Est GFR (African American) 94.7 ml/min; Est GFR (Non-African American) 81.7 ml/min; Magnesium 1.9 mg/dl (1.7-2.4); Potassium 4.5 mmol/L (3.5-5.1)
[2024-02-11] MEDS: COLCHICINE 0.6 MG TAB PO SCH ×2 (08:31→19:18)
--- NOTE | 2024-02-11 10:16 | Cardiology Progress Note ---
Date of Service February 11, 2024 Assessment & Plan (1) Paroxysmal atrial fibrillation: (2) Effusion, pericardium: (3) Presence of Watchman left atrial appendage closure device: Plan Recurrent symptomatic atrial fibrillation/atypical flutter with a rapid ventricular response. Status post Watchman device implantation on 01/30/2024. Pericardial effusion without tamponade physiology per initial echocardiogram. Dyspnea improved off of beta-kell therapy. Examination without volume overload. Recommendations: 1. Antiarrhythmic therapy considered however patient with documented difficulty tolerating low-dose beta-kell therapy and I am concerned regarding the use of amiodarone given her COPD, reduced DLCO via July 2023 PFTs, muscular dystrophy, tremor, GI issues. 2. Patient received oral Cardizem 120 mg/day at 08:21 AM. 3. Start a diltiazem drip 4. Limited TTE to reassess the pericardial effusion 5. Continue colchicine, 0.6 mg ONCE daily given concurrent use of Cardizem, weight less than 70 kg 6. Clopidogrel prescribed due to recent implantation of Watchman device; outpatient transesophageal echocardiogram scheduled 45 days post procedure. 02/11/2024 Patient in sinus rhythm this morning with IV diltiazem Now on oral diltiazem begun yesterday will increase to twice per day 120 mg CD. Reduce hydralazine to 75 mg 3 times daily to allow for increase in calcium channel kell Atrial fibrillation discussed in detail with patient including options of khalida mariano Echo pending for today Will need to observe at least additional 24 hours Admission and Anticipated Discharge Date Admission Date: February 07, 2024 Subjective Patient was seen and personally examined. Less breathless now but in sinus rhythm converted from atrial fibrillation with rapid response to sinus rhythm at approximately 1 AM this morning. Currently occasionally breathless just no pleuritic pain no chest discomfort no fevers or chills. Mild GI upset Review of Systems Review of Systems: All systems reviewed & are unremarkable except as noted in Subjective Physical Exam Constitutional: well nourished; no acute distress Eyes: PERRL, conjunctivae normal, anicteric sclerae Neck: trachea midline, no thyromegaly Respiratory: no respiratory distress, no labored breathing and no retractions Auscultation: + crackles (Few crackles left base but otherwise clear); no rales, no rhonchi and no wheezes Cardiovascular: Rate/Rhythm: regular rate and regular rhythm Heart Sounds: normal S1 and normal S2; no murmur Vessels: radial pulses present; no JVD and no carotid bruit Extremities: no edema Gastrointestinal (Abdomen): Inspection/Auscultation: abdomen normal to inspection and normal bowel sounds; abdomen not distended Percussion/Palpation: abdomen soft; abdomen nontender, no guarding and abdomen not rigid Neurologic: CN's II-XI intact bilaterally and moves all extremities; no focal motor deficits Results & Data Vital Signs (Past 12 Hours) Vital Signs Temp Pulse Resp BP Pulse Ox O2 Del Method 02/11/24 07:57 36.5 C 70 18 125/56 L 96 Room Air 02/11/24 02:53 36.8 C 66 19 148/85 H 93 CPAP 02/10/24 23:03 36.8 C 56 L 19 105/62 98 CPAP Laboratory Results Laboratory Results - last 24 hr 02/11/24 05:54 WBC 12.71 H RBC 4.53 Hgb 14.0 Hct 41.3 MCV 91.2 MCH 30.9 MCHC 33.9 RDW Std Deviation 41.0 RDW Coeff of Lion 12.3 Plt Count 443 H MPV 9.3 L Sodium 132 L Potassium 4.5 Chloride 104 Carbon Dioxide 20 L Anion Gap 8 BUN 20 Creatinine 0.73 Est Cr Clr Drug Dosing 59.3 Est GFR ( Amer) 94.7 Est GFR (Non-Af Amer) 81.7 BUN/Creatinine Ratio 27.4 H Glucose 127 H Calcium 9.8 Magnesium 1.9
--- NOTE | 2024-02-11 12:15 | Hospitalist Progress Note ---
Date of Service February 11, 2024 Assessment & Plan (1) Atrial fibrillation with rapid ventricular response: (2) Ischemic cerebrovascular accident (CVA): (3) HTN (hypertension): (4) Effusion, pericardium: Plan Atrial fibrillation with rapid ventricular response: Presented with A-fib RVR rates up to the 140s. Following Cardizem 10 mg, 5 mg, 5 mg had initial improved rate control and then converted to NSR Patient had been titrated off of beta-blockers as outpatient due to lighth eadedness however has had recurrence of RVR with this CT with posterior pericardial effusion, no evidence of tamponade. Echo ordered to further characterize. Patient [place] with [facility] [place], consulted Patient was started on Cardizem drip yesterday but has been transitioned to oral. -Amiodarone not a good choice given her COPD and also reduced diffusion capacity and muscle dystrophy. -Repeat 2D echo has been ordered for today, result pending -Per cardiology, will observe the patient at least for the next 24 hours. 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 difficile 2 weeks ago with complete resolution of symptoms after 10 days of vancomycin but did have several days of diarrhea (likely contributed to her admission magnesium/potassium levels) Chronic stable issues: GERD: Continue PPI COPD: No acute exacerbation. Continue inhalers DVT prophylaxis: Pharmacal prophylaxis contraindicated due to history of recent ICH. SCDs Disposition: PCU, pending heart rate control CODE STATUS: Full code Diet: Heart healthy Admission and Anticipated Discharge Date Admission Date: February 07, 2024 Subjective Patient seen and examined, sitting up in the chair, feels a whole lot better Review of Systems Review of Systems: All systems reviewed are negative, apart from the ones contained in the history. Physical Exam Physical Exam: The patient is awake, alert and oriented 3, well developed and well nourished, normocephalic and atraumatic, lying in bed and in no acute distress. HEENT--PERRL, EOMI, mucous membranes and oropharynx mildly dry Neck--supple. No JVD. No bruits. Thyroid normal, trachea midline, no adenopathy. Heart--normal S1 and S2. No murmurs, rubs or gallops. Lungs--clear bilaterally, no respiratory distress, no accessory muscle use. Abdomen--normal bowel sounds and soft. Extremities--no cyanosis or clubbing. No edema. Dermatologic--normal skin turgor, normal color, no abnormal lymph nodes, no rash. Neurologic--cranial nerves II through XII grossly intact. Rheumatologic--normal range of motion. Psychiatric--normal affect. Results & Data Results & Data Vital Signs (Past 12 Hours) Vital Signs Temp Pulse Resp BP Pulse Ox O2 Del Method 02/11/24 07:57 97.7 F 70 18 125/56 L 96 Room Air 02/11/24 02:53 98.2 F 66 19 148/85 H 93 CPAP PG Care Time/CCT Total # of Minutes Spent Total Time Spent with Patient: Total time spent is greater than 50% in coordination of care (as documented) at patient's floor/unit and/or counseling patient: Coding Level of Care Code 34079 SUB INP/OBS CARE 2/35MIN Diagnoses Atrial fibrillation with rapid ventricular response I48.91 Ischemic cerebrovascular accident (CVA) I63.9 HTN (hypertension) I10 Effusion, pericardium I31.39 Time Spent (min) 35
[2024-02-11] MEDS: hydrALAZINE HCL 25 MG TAB PO SCH (14:00)
--- NOTE | 2024-02-11 15:59 | Electrocardiogram Report ---
Test Reason : Blood Pressure : / mmHG Vent. Rate : 156 BPM Atrial Rate : 136 BPM P-R Int : 000 ms QRS Dur : 078 ms QT Int : 304 ms P-R-T Axes : 000 064 -05 degrees QTc Int : 489 ms Atrial fibrillation with rapid ventricular response Abnormal ECG When compared with ECG of 09-FEB-2024 11:14, Atrial fibrillation has replaced Sinus rhythm Vent. rate has increased BY 100 BPM Borderline criteria for Anterolateral infarct are no longer Present Minimal criteria for Inferior infarct are no longer Present Confirmed by Rubén Ojeda ([id number]) on 02/11/2024 3:59:18 PM Referred By: Becky Tavarez Confirmed By:Wei Ojeda
[2024-02-11] MEDS: dilTIAZem HCL 120 MG CAPCR PO SCH (20:32)
[2024-02-12 06:31] LABS: Hematocrit (blood only) 40.4 % (37.0-47.0); Hemoglobin 13.7 g/dl (12.0-16.0); Mean Corpuscular Hemoglobin 31.1 pg (25.0-34.0); Mean Corpuscular Hgb Conc 33.9 g/dL (32.0-36.0); Mean Corpuscular Volume 91.8 fL (80.0-100.0); Mean Platelet Volume 9.3 fL (9.4-12.4); Platelet Count 423 K/uL (130-400); RDW Coefficient of Variation 12.5 % (11.5-14.5); RDW Standard Deviation 42.4 fL (36.4-46.3); White Blood Count 13.75 K/ul (4.8-10.8)
[2024-02-12 06:47] LABS: BUN Creatinine Ratio 29.8 (10-20); Calcium 9.5 mg/dl (8.6-10.3); Creatinine Clr Calc Pharmacy 51.5 ml/min; Est GFR (African American) 79.9 ml/min; Potassium 4.6 mmol/L (3.5-5.1)
--- NOTE | 2024-02-12 09:48 | Cardiology Progress Note ---
Date of Service February 12, 2024 Assessment & Plan (1) Paroxysmal atrial fibrillation: (2) Effusion, pericardium: (3) Presence of Watchman left atrial appendage closure device: Plan Recurrent symptomatic atrial fibrillation/atypical flutter with a rapid ventricular response. Status post Watchman device implantation on 01/30/2024. Pericardial effusion without tamponade physiology per initial echocardiogram. Dyspnea improved off of beta-kell therapy. Examination without volume overload. Recommendations: 1. Antiarrhythmic therapy considered however patient with documented difficulty tolerating low-dose beta-kell therapy and I am concerned regarding the use of amiodarone given her COPD, reduced DLCO via July 2023 PFTs, muscular dystrophy, tremor, GI issues. 2. Patient received oral Cardizem 120 mg/day at 08:21 AM. 3. Start a diltiazem drip 4. Limited TTE to reassess the pericardial effusion 5. Continue colchicine, 0.6 mg ONCE daily given concurrent use of Cardizem, weight less than 70 kg 6. Clopidogrel prescribed due to recent implantation of Watchman device; outpatient transesophageal echocardiogram scheduled 45 days post procedure. 02/11/2024 Patient in sinus rhythm this morning with IV diltiazem Now on oral diltiazem begun yesterday will increase to twice per day 120 mg CD. Reduce hydralazine to 75 mg 3 times daily to allow for increase in calcium channel kell Atrial fibrillation discussed in detail with patient including options of khalida mariano Echo pending for today Will need to observe at least additional 24 hours 02/12/2024 Initially demonstrating clinical improvement no signs of worsening pericardial effusion, pleuritic pain. Did lapse into atrial fibrillation however after initial examination Will give dose of IV metoprolol Reassess for antiarrhythmic therapy. Discussed above in detail with patient and . Will initiate dofetilide this admission beginning at 500 mcg twice daily. Anticipate 3 days monitoring Diltiazem oral and IV discontinued Admission and Anticipated Discharge Date Admission Date: February 07, 2024 Subjective Patient was seen and examined, chart, medications, telemetry reviewed. No problems overnight and feels well this morning. Ambulatory in room without dizziness or lightheadedness. No chest pains. Of note after above examination patient returned to atrial fibrillation asymptomatically with elevated ventricular sponsor Review of Systems Review of Systems: All systems reviewed & are unremarkable except as noted in Subjective Physical Exam Constitutional: well nourished; no acute distress Eyes: PERRL, conjunctivae normal, anicteric sclerae Neck: trachea midline, no thyromegaly Respiratory: no respiratory distress, no labored breathing and no retractions Auscultation: lungs clear to auscultation bilaterally and + crackles (Few crackles left base but otherwise clear); no rales, no rhonchi and no wheezes Cardiovascular: Rate/Rhythm: regular rate and regular rhythm Heart Sounds: normal S1 and normal S2; no murmur Vessels: radial pulses present; no JVD and no carotid bruit Extremities: no edema Gastrointestinal (Abdomen): Inspection/Auscultation: abdomen normal to inspection and normal bowel sounds; abdomen not distended Percussion/Palpation: abdomen soft; abdomen nontender, no guarding and abdomen not rigid Neurologic: CN's II-XI intact bilaterally and moves all extremities; no focal motor deficits Results & Data Vital Signs (Past 12 Hours) Vital Signs Temp Pulse Pulse Resp BP BP Pulse Ox 02/12/24 07:18 36.6 C 72 18 136/72 93 02/12/24 03:14 36.7 C 64 17 134/57 L 94 02/11/24 23:39 67 02/11/24 23:08 36.8 C 64 18 117/62 97 O2 Del Method 02/12/24 07:18 Room Air 02/12/24 03:14 Room Air 02/11/24 23:39 02/11/24 23:08 CPAP Laboratory Results Laboratory Results - last 24 hr 02/12/24 05:40 WBC 13.75 H RBC 4.40 Hgb 13.7 Hct 40.4 MCV 91.8 MCH 31.1 MCHC 33.9 RDW Std Deviation 42.4 RDW Coeff of Lion 12.5 Plt Count 423 H MPV 9.3 L Sodium 133 L Potassium 4.6 Chloride 104 Carbon Dioxide 21 Anion Gap 8 BUN 25 H Creatinine 0.84 Est Cr Clr Drug Dosing 51.5 Est GFR ( Amer) 79.9 Est GFR (Non-Af Amer) 69.0 BUN/Creatinine Ratio 29.8 H Glucose 106 H Calcium 9.5
[2024-02-12] MEDS: METOPROLOL TARTRATE 1 MG/ML VIAL IV STA (09:50)
[2024-02-12] MEDS: DOFETILIDE 125 MCG CAPSULE PO SCH ×2 (11:26→20:59)
--- NOTE | 2024-02-12 11:51 | Hospitalist Progress Note ---
Date of Service February 12, 2024 Assessment & Plan (1) Atrial fibrillation with rapid ventricular response: (2) Ischemic cerebrovascular accident (CVA): (3) HTN (hypertension): (4) Effusion, pericardium: Plan Atrial fibrillation with rapid ventricular response: Presented with A-fib RVR rates up to the 140s. Following Cardizem 10 mg, 5 mg, 5 mg had initial improved rate control and then converted to NSR Patient had been titrated off of beta-blockers as outpatient due to lighth eadedness however has had recurrence of RVR with this CT with posterior pericardial effusion, no evidence of tamponade. Echo ordered to further characterize. Patient follows with [facility] [place] cardiology, consulted Patient was started on Cardizem drip yesterday but has been transitioned to oral. -Amiodarone not a good choice given her COPD and also reduced diffusion capacity and muscle dystrophy. -Repeat 2D echo Show some improvement in the effusion -Diltiazem have been discontinued -Patient has been initiated on dofetilide 500 mcg twice daily. -Per cardiology she will need about 3 days of monitoring Anticoagulation contraindicated due to intracranial bleed S/p Watchman procedure at [facility] [place] #Bradycardia - resolved - suspect in the setting of increased frequency - discussed with cards, metoprolol stopped and pt started on diltiazem #Posterior pericardial effusion - ECHO reviewed - cards recs appreciated, cont colchicine 0.6mg daily #HTN - on hydralazine, losartan, diltiazem #Hypomagnesemia #Hypokalemia - replete and monitor #Elevated D-dimer - CTA without evidence of PE - LE duplex negative for DVT #Ischemic cerebrovascular accident (CVA): - 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 difficile 2 weeks ago with complete resolution of symptoms after 10 days of vancomycin but did have several days of diarrhea (likely contributed to her admission magnesium/potassium levels) Chronic stable issues: GERD: Continue PPI COPD: No acute exacerbation. Continue inhalers DVT prophylaxis: Pharmacal prophylaxis contraindicated due to history of recent ICH. SCDs Disposition: PCU, pending heart rate control CODE STATUS: Full code Diet: Heart healthy Admission and Anticipated Discharge Date Admission Date: February 07, 2024 Subjective Patient seen and examined, was told by the nurse the patient went into rapid ventricular rhythm, repeat EKG has been ordered Review of Systems Review of Systems: All systems reviewed are negative, apart from the ones contained in the history. Physical Exam Physical Exam: The patient is awake, alert and oriented 3, well developed and well nourished, normocephalic and atraumatic, lying in bed and in no acute distress. HEENT--PERRL, EOMI, mucous membranes and oropharynx mildly dry Neck--supple. No JVD. No bruits. Thyroid normal, trachea midline, no adenopathy. Heart--normal S1 and S2. No murmurs, rubs or gallops. Lungs--clear bilaterally, no respiratory distress, no accessory muscle use. Abdomen--normal bowel sounds and soft. Extremities--no cyanosis or clubbing. No edema. Dermatologic--normal skin turgor, normal color, no abnormal lymph nodes, no rash. Neurologic--cranial nerves II through XII grossly intact. Rheumatologic--normal range of motion. Psychiatric--normal affect. Results & Data Results & Data Vital Signs (Past 12 Hours) Vital Signs Temp Pulse Pulse Resp BP BP Pulse Ox 02/12/24 11:01 97.9 F 93 H 18 147/72 H 95 02/12/24 10:10 98 H 02/12/24 09:50 146 H 02/12/24 08:00 02/12/24 07:18 97.9 F 72 18 136/72 93 02/12/24 03:14 98.1 F 64 17 134/57 L 94 O2 Del Method 02/12/24 11:01 Room Air 02/12/24 10:10 02/12/24 09:50 02/12/24 08:00 Room Air 02/12/24 07:18 Room Air 02/12/24 03:14 Room Air PG Care Time/CCT Total # of Minutes Spent Total Time Spent with Patient: Total time spent is greater than 50% in coordination of care (as documented) at patient's floor/unit and/or counseling patient: Coding Level of Care Code 65488 SUB INP/OBS CARE 2/35MIN Diagnoses Atrial fibrillation with rapid ventricular response I48.91 Ischemic cerebrovascular accident (CVA) I63.9 HTN (hypertension) I10 Effusion, pericardium I31.39 Time Spent (min) 35
--- NOTE | 2024-02-12 12:17 | Electrocardiogram Report ---
Test Reason : Blood Pressure : / mmHG Vent. Rate : 146 BPM Atrial Rate : 468 BPM P-R Int : 000 ms QRS Dur : 082 ms QT Int : 282 ms P-R-T Axes : 000 054 -47 degrees QTc Int : 439 ms Atrial fibrillation with rapid ventricular response Abnormal ECG When compared with ECG of 10-FEB-2024 08:41, Non-specific change in ST segment in Anterior leads Confirmed by Rubén Ojeda ([id number]) on 02/12/2024 12:17:02 PM Referred By: Becky Tavarez Confirmed By:Wei Ojeda
[2024-02-12] MEDS ORDERED: METOPROLOL TARTRATE 25 MG TAB PO SCH (14:00)
--- NOTE | 2024-02-12 16:02 | Electrocardiogram Report ---
Test Reason : Blood Pressure : / mmHG Vent. Rate : 102 BPM Atrial Rate : 277 BPM P-R Int : 000 ms QRS Dur : 084 ms QT Int : 418 ms P-R-T Axes : 000 040 -08 degrees QTc Int : 544 ms Atrial flutter with variable A-V block with premature ventricular or aberrantly conducted complexes T wave abnormality, consider inferior ischemia T wave abnormality, consider anterior ischemia Prolonged QT Abnormal ECG When compared with ECG of 12-FEB-2024 09:35, Atrial flutter has replaced Atrial fibrillation Non-specific change in ST segment in Inferior leads ST no longer depressed in Lateral leads T wave inversion no longer evident in Lateral leads Confirmed by Rubén Ojeda ([id number]) on 02/12/2024 4:01:41 PM Referred By: Becky Tavarez Confirmed By:Wei Ojeda
--- NOTE | 2024-02-12 16:03 | Electrocardiogram Report ---
Test Reason : Blood Pressure : / mmHG Vent. Rate : 059 BPM Atrial Rate : 059 BPM P-R Int : 176 ms QRS Dur : 094 ms QT Int : 536 ms P-R-T Axes : 033 028 009 degrees QTc Int : 530 ms Sinus bradycardia RSR' or QR pattern in V1 suggests right ventricular conduction delay T wave abnormality, consider anterior ischemia Prolonged QT Abnormal ECG When compared with ECG of 12-FEB-2024 13:03, (unconfirmed) Sinus rhythm has replaced Atrial flutter Vent. rate has decreased BY 43 BPM T wave inversion less evident in Inferior leads Confirmed by Rubén Ojeda ([id number]) on 02/12/2024 4:02:39 PM Referred By: Becky Tavarez Confirmed By:Wei Ojeda
[2024-02-12] MEDS: MAGNESIUM SULFATE / D5W 1 GM/100 ML BAG IV ONE (23:44)
[2024-02-13 00:04] LABS: Hematocrit (blood only) 42.1 % (37.0-47.0); Hemoglobin 14.3 g/dl (12.0-16.0); Mean Corpuscular Hemoglobin 31.2 pg (25.0-34.0); Mean Corpuscular Volume 91.9 fL (80.0-100.0); Mean Platelet Volume 9.1 fL (9.4-12.4); Platelet Count 395 K/uL (130-400); RDW Coefficient of Variation 12.7 % (11.5-14.5); RDW Standard Deviation 42.5 fL (36.4-46.3); Red Blood Count 4.58 M/uL (4.20-5.40)
[2024-02-13 00:21] LABS: Albumin Globulin Ratio 1.2 (0.9-2); Albumin Level 4.1 gm/dl (3.4-5.0); Bilirubin,Total 0.4 mg/dl (0.2-1.0); Calcium 10.2 mg/dl (8.6-10.3); Creatinine Clr Calc Pharmacy 46.5 ml/min; Est GFR (African American) 70.7 ml/min; Globulin 3.3 gm/dl (2.5-4.0); Magnesium 1.9 mg/dl (1.7-2.4); Phosphorus 3.5 mg/dl (2.5-4.9); Potassium 4.3 mmol/L (3.5-5.1); Total Protein 7.4 gm/dl (6.0-8.3)
[2024-02-13 07:25] LABS: Anion Gap 7 (3-11); BUN Creatinine Ratio 30.6 (10-20); Blood Urea Nitrogen 22 mg/dl (6-23); Calcium 9.3 mg/dl (8.6-10.3); Carbon Dioxide 21 mmol/L (21-32); Chloride 104 mmol/L (98-107); Creatinine Clr Calc Pharmacy 60.1 ml/min; Est GFR (African American) 96.3 ml/min; Est GFR (Non-African American) 83.1 ml/min; Glucose 104 mg/dl (70-99(Fasting)); Sodium 132 mmol/L (136-145)
[2024-02-13] MEDS: METOPROLOL TARTRATE 1 MG/ML VIAL IV STA (09:20)
--- NOTE | 2024-02-13 10:54 | Hospitalist Progress Note ---
Date of Service February 13, 2024 Assessment & Plan (1) Atrial fibrillation with rapid ventricular response: (2) Ischemic cerebrovascular accident (CVA): (3) HTN (hypertension): (4) Effusion, pericardium: Plan Atrial fibrillation with rapid ventricular response: Presented with A-fib RVR rates up to the 140s. Following Cardizem 10 mg, 5 mg, 5 mg had initial improved rate control and then converted to NSR Patient had been titrated off of beta-blockers as outpatient due to light headedness however has had recurrence of RVR with this S[place]man [place] [facility] [place] with posterior pericardial effusion, no evidence of tamponade. Echo ordered to further characterize. Patient [place] with [facility] [place] [facility] [place], consulted Patient was started on Cardizem drip yesterday but has been transitioned to oral. -Amiodarone not a good choice given her COPD and also reduced diffusion capacity and muscle dystrophy. -Repeat 2D echo Show some improvement in the effusion -Diltiazem have been discontinued -Patient was initiated on dofetilide 500 mcg twice daily, However she had further arrhythmias and dofetilide has been on hold -Await further recommendations from cardiology Anticoagulation contraindicated due to intracranial bleed #Bradycardia - resolved - suspect in the setting of increased frequency - discussed with cards, metoprolol stopped and pt started on diltiazem #Posterior pericardial effusion - ECHO reviewed - cards recs appreciated, cont colchicine 0.6mg daily #HTN - on hydralazine, losartan, diltiazem #Hypomagnesemia #Hypokalemia - replete and monitor #Elevated D-dimer - CTA without evidence of PE - LE duplex negative for DVT #Ischemic cerebrovascular accident (CVA): - 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 difficile 2 weeks ago with complete resolution of symptoms after 10 days of vancomycin but did have several days of diarrhea (likely contributed to her admission magnesium/potassium levels) Chronic stable issues: GERD: Continue PPI COPD: No acute exacerbation. Continue inhalers DVT prophylaxis: Pharmacal prophylaxis contraindicated due to history of recent ICH. SCDs Disposition: PCU, pending heart rate control CODE STATUS: Full code Diet: Heart healthy Admission and Anticipated Discharge Date Admission Date: February 07, 2024 Subjective Patient seen and examined, After a dose of dofetilide, she had further arrhythmias Review of Systems Review of Systems: All systems reviewed are negative, apart from the ones contained in the history. Physical Exam Physical Exam: The patient is awake, alert and oriented 3, well developed and well nourished, normocephalic and atraumatic, lying in bed and in no acute distress. HEENT--PERRL, EOMI, mucous membranes and oropharynx mildly dry Neck--supple. No JVD. No bruits. Thyroid normal, trachea midline, no adenopathy. Heart--normal S1 and S2. No murmurs, rubs or gallops. Lungs--clear bilaterally, no respiratory distress, no accessory muscle use. Abdomen--normal bowel sounds and soft. Extremities--no cyanosis or clubbing. No edema. Dermatologic--normal skin turgor, normal color, no abnormal lymph nodes, no rash. Neurologic--cranial nerves II through XII grossly intact. Rheumatologic--normal range of motion. Psychiatric--normal affect. Results & Data Results & Data Vital Signs (Past 12 Hours) Vital Signs Temp Pulse Pulse Resp BP BP Pulse Ox 02/13/24 10:25 65 137/79 02/13/24 10:00 114 H 127/84 02/13/24 09:20 142 H 118/72 02/13/24 08:03 98.2 F 65 18 131/75 96 02/13/24 03:17 97.7 F 57 L 18 134/76 96 02/12/24 23:09 97.7 F 41 L 19 157/87 H 97 O2 Del Method 02/13/24 10:25 02/13/24 10:00 Room Air 02/13/24 09:20 02/13/24 08:03 Room Air 02/13/24 03:17 CPAP 02/12/24 23:09 Room Air PG Care Time/CCT Total # of Minutes Spent Total Time Spent with Patient: Total time spent is greater than 50% in coordination of care (as documented) at patient's floor/unit and/or counseling patient: Coding Level of Care Code 15047 SUB INP/OBS CARE 2/35MIN Diagnoses Atrial fibrillation with rapid ventricular response I48.91 Ischemic cerebrovascular accident (CVA) I63.9 HTN (hypertension) I10 Effusion, pericardium I31.39 Time Spent (min) 35
--- NOTE | 2024-02-13 11:12 | Cardiology Progress Note ---
Date of Service February 13, 2024 Assessment & Plan (1) Paroxysmal atrial fibrillation: (2) Effusion, pericardium: (3) Presence of Watchman left atrial appendage closure device: Plan Recurrent symptomatic atrial fibrillation/atypical flutter with a rapid ventricular response. Status post Watchman device implantation on 01/30/2024. Pericardial effusion without tamponade physiology per initial echocardiogram. Dyspnea improved off of beta-kell therapy. Examination without volume overload. Recommendations: 1. Antiarrhythmic therapy considered however patient with documented difficulty tolerating low-dose beta-kell therapy and I am concerned regarding the use of amiodarone given her COPD, reduced DLCO via July 2023 PFTs, muscular dystrophy, tremor, GI issues. 2. Patient received oral Cardizem 120 mg/day at 08:21 AM. 3. Start a diltiazem drip 4. Limited TTE to reassess the pericardial effusion 5. Continue colchicine, 0.6 mg ONCE daily given concurrent use of Cardizem, weight less than 70 kg 6. Clopidogrel prescribed due to recent implantation of Watchman device; outpatient transesophageal echocardiogram scheduled 45 days post procedure. 02/11/2024 Patient in sinus rhythm this morning with IV diltiazem Now on oral diltiazem begun yesterday will increase to twice per day 120 mg CD. Reduce hydralazine to 75 mg 3 times daily to allow for increase in calcium channel kell Atrial fibrillation discussed in detail with patient including options of man agement Echo pending for today Will need to observe at least additional 24 hours 02/12/2024 Initially demonstrating clinical improvement no signs of worsening pericardial effusion, pleuritic pain. Did lapse into atrial fibrillation however after initial examination Will give dose of IV metoprolol Reassess for antiarrhythmic therapy. Discussed above in detail with patient and . Will initiate dofetilide this admission beginning at 500 mcg twice daily. Anticipate 3 days monitoring Diltiazem oral and IV discontinued 02/13/2024 Paroxysmal atrial fibrillation remains a concern. Trial of antiarrhythmic therapy with Tikosyn resulted in marked prolongation of QT interval. Medication discontinued after 2 doses. Patient returned to atrial fibrillation once again this morning Plan: Add calcium channel kell back given poor tolerance of beta-kell will trial verapamil 180 mg p.o. daily first dose this morning. Colchicine held Discussed pacemaker with AV junction ablation once again and may ultimately proceed to this. Echocardiogram ordered to reassess pericardial effusion Admission and Anticipated Discharge Date Admission Date: February 07, 2024 Subjective Patient was seen and examined, chart medications and testing observed and reviewed Patient did not tolerate trial of antiarrhythmic therapy with Tikosyn with significant QT prolongation. Once again lapsed back into atrial fibrillation earlier this morning. Mildly breathless with elevated heart rates. No chest pain. Review of Systems Review of Systems: All systems reviewed & are unremarkable except as noted in Subjective Physical Exam Constitutional: well nourished; no acute distress Eyes: PERRL, conjunctivae normal, anicteric sclerae Neck: trachea midline, no thyromegaly Respiratory: no respiratory distress, no labored breathing and no retractions Auscultation: lungs clear to auscultation bilaterally; no rales, no rhonchi and no wheezes Cardiovascular: Rate/Rhythm: + tachycardic and + irregularly irregular Heart Sounds: normal S1 and normal S2; no murmur Vessels: radial pulses present; no JVD and no carotid bruit Extremities: no edema Gastrointestinal (Abdomen): Inspection/Auscultation: abdomen normal to inspection and normal bowel sounds; abdomen not distended Percussion/Palpation: abdomen soft; abdomen nontender, no guarding and abdomen not rigid Neurologic: CN's II-XI intact bilaterally and moves all extremities; no focal motor deficits Results & Data Vital Signs (Past 12 Hours) Vital Signs Temp Pulse Pulse Resp BP BP Pulse Ox 02/13/24 10:25 65 137/79 02/13/24 10:00 114 H 127/84 02/13/24 09:20 142 H 118/72 02/13/24 08:03 36.8 C 65 18 131/75 96 02/13/24 03:17 36.5 C 57 L 18 134/76 96 02/12/24 23:09 36.5 C 41 L 19 157/87 H 97 O2 Del Method 02/13/24 10:25 02/13/24 10:00 Room Air 02/13/24 09:20 02/13/24 08:03 Room Air 02/13/24 03:17 CPAP 02/12/24 23:09 Room Air Laboratory Results Laboratory Results - last 24 hr 02/12/24 02/13/24 02/13/24 23:43 06:43 07:31 WBC 15.30 H RBC 4.58 Hgb 14.3 Hct 42.1 MCV 91.9 MCH 31.2 MCHC 34.0 RDW Std Deviation 42.5 RDW Coeff of Lion 12.7 Plt Count 395 MPV 9.1 L Sodium 130 L 132 L Potassium 4.3 TNP 4.3 Chloride 102 104 Carbon Dioxide 21 21 Anion Gap 7 7 BUN 26 H 22 Creatinine 0.93 0.72 Est Cr Clr Drug Dosing 46.5 60.1 Est GFR ( Amer) 70.7 96.3 Est GFR (Non-Af Amer) 61.0 83.1 BUN/Creatinine Ratio 28.0 H 30.6 H Glucose 105 H 104 H Calcium 10.2 9.3 Phosphorus 3.5 Magnesium 1.9 Total Bilirubin 0.4 AST 18 ALT 20 Alkaline Phosphatase 66 Total Protein 7.4 Albumin 4.1 Globulin 3.3 Albumin/Globulin Ratio 1.2
[2024-02-13] MEDS: VERAPAMIL HCL 180 MG TABCR PO SCH (11:55)
--- NOTE | 2024-02-13 12:50 | Electrocardiogram Report ---
Test Reason : Blood Pressure : / mmHG Vent. Rate : 060 BPM Atrial Rate : 060 BPM P-R Int : 164 ms QRS Dur : 094 ms QT Int : 608 ms P-R-T Axes : 043 048 013 degrees QTc Int : 608 ms Sinus rhythm with PACs Incomplete right bundle branch block Prolonged QT Abnormal ECG When compared with ECG of 12-FEB-2024 23:08, (unconfirmed) Premature ventricular complexes are no longer Present T wave inversion less evident in Anterior leads QT has shortened Confirmed by Rubén Ojeda ([id number]) on 02/13/2024 12:50:01 PM Referred By: Becky Tavarez Confirmed By:Wei Ojeda
--- NOTE | 2024-02-13 12:54 | Electrocardiogram Report ---
Test Reason : Blood Pressure : / mmHG Vent. Rate : 060 BPM Atrial Rate : 060 BPM P-R Int : 166 ms QRS Dur : 084 ms QT Int : 720 ms P-R-T Axes : 043 050 030 degrees QTc Int : 720 ms Sinus rhythm with frequent Premature ventricular complexes and Premature atrial complexes Possible Left atrial enlargement T wave abnormality, consider anterior ischemia Prolonged QT Abnormal ECG When compared with ECG of 12-FEB-2024 13:39, Premature ventricular complexes are now Present Premature atrial complexes are now Present QT has lengthened Confirmed by Rubén Ojeda ([id number]) on 02/13/2024 12:54:12 PM Referred By: Becky Tavarez Confirmed By:Wei Ojeda
[2024-02-13] MEDS: hydrALAZINE TAB 50 MG TAB PO SCH (14:54)
[2024-02-14 09:20] LABS: BUN Creatinine Ratio 31.3 (10-20); Calcium 9.4 mg/dl (8.6-10.3); Creatinine Clr Calc Pharmacy 59.1 ml/min; Est GFR (African American) 84.8 ml/min; Est GFR (Non-African American) 73.1 ml/min; Potassium 4.3 mmol/L (3.5-5.1)
--- NOTE | 2024-02-14 09:46 | Cardiology Progress Note ---
Date of Service February 14, 2024 Assessment & Plan (1) Paroxysmal atrial fibrillation: (2) Effusion, pericardium: (3) Presence of Watchman left atrial appendage closure device: Plan Recurrent symptomatic atrial fibrillation/atypical flutter with a rapid ventricular response. Status post Watchman device implantation on 01/30/2024. Pericardial effusion without tamponade physiology per initial echocardiogram. Dyspnea improved off of beta-kell therapy. Examination without volume overload. Recommendations: 1. Antiarrhythmic therapy considered however patient with documented difficulty tolerating low-dose beta-kell therapy and I am concerned regarding the use of amiodarone given her COPD, reduced DLCO via July 2023 PFTs, muscular dystrophy, tremor, GI issues. 2. Patient received oral Cardizem 120 mg/day at 08:21 AM. 3. Start a diltiazem drip 4. Limited TTE to reassess the pericardial effusion 5. Continue colchicine, 0.6 mg ONCE daily given concurrent use of Cardizem, weight less than 70 kg 6. Clopidogrel prescribed due to recent implantation of Watchman device; outpatient transesophageal echocardiogram scheduled 45 days post procedure. 02/11/2024 Patient in sinus rhythm this morning with IV diltiazem Now on oral diltiazem begun yesterday will increase to twice per day 120 mg CD. Reduce hydralazine to 75 mg 3 times daily to allow for increase in calcium channel kell Atrial fibrillation discussed in detail with patient including options of man agement Echo pending for today Will need to observe at least additional 24 hours 02/12/2024 Initially demonstrating clinical improvement no signs of worsening pericardial effusion, pleuritic pain. Did lapse into atrial fibrillation however after initial examination Will give dose of IV metoprolol Reassess for antiarrhythmic therapy. Discussed above in detail with patient and . Will initiate dofetilide this admission beginning at 500 mcg twice daily. Anticipate 3 days monitoring Diltiazem oral and IV discontinued 02/13/2024 Paroxysmal atrial fibrillation remains a concern. Trial of antiarrhythmic therapy with Tikosyn resulted in marked prolongation of QT interval. Medication discontinued after 2 doses. Patient returned to atrial fibrillation once again this morning Plan: Add calcium channel kell back given poor tolerance of beta-kell will trial verapamil 180 mg p.o. daily first dose this morning. Colchicine held Discussed pacemaker with AV junction ablation once again and may ultimately proceed to this. Echocardiogram ordered to reassess pericardial effusion 02/14/2024 Clinically improved today. Echocardiogram yesterday improved pericardial effusion. No further atrial arrhythmias EKG reveals normalization of QT prolongation Issues addressed as follows 1. Paroxysmal atrial fibrillation: Longstanding with recent increase in frequency possible in relationship to procedures and pericardial effusion. Poor tolerance of beta-kell with pulmonary contraindications to amiodarone. Trial of Tikosyn resulted in marked QT prolongation. Currently on verapamil SR 180 mg/day and will continue Underwent watchman and contraindications to anticoagulation present 2. Postprocedural pericardial effusion improving Plan: Continue verapamil as ordered. Increase activities in hospital/PT OT while on telemetry additional 24 hours Continue prednisone with slow taper for pericardial effusion Admission and Anticipated Discharge Date Admission Date: February 07, 2024 Subjective Feels better today. No further arrhythmias overnight. No dizziness or lightheadedness. Had diarrhea with colchicine and was discontinued due to symptoms and overlap with verapamil Physical Exam Constitutional: well nourished; no acute distress Eyes: PERRL, conjunctivae normal, anicteric sclerae Neck: trachea midline, no thyromegaly Respiratory: no respiratory distress, no labored breathing and no retractions Auscultation: lungs clear to auscultation bilaterally and + crackles (Few crackles left base but otherwise clear); no rales, no rhonchi and no wheezes Cardiovascular: Rate/Rhythm: regular rate and regular rhythm Heart Sounds: normal S1 and normal S2; no murmur Vessels: radial pulses present; no JVD and no carotid bruit Extremities: no edema Gastrointestinal (Abdomen): Inspection/Auscultation: abdomen normal to inspection and normal bowel sounds; abdomen not distended Percussion/Palpation: abdomen soft; abdomen nontender, no guarding and abdomen not rigid Neurologic: CN's II-XI intact bilaterally and moves all extremities; no focal motor deficits Results & Data Vital Signs (Past 12 Hours) Vital Signs Temp Pulse Pulse Resp BP Pulse Ox O2 Del Method 02/14/24 08:14 36.6 C 67 18 160/80 H 95 Room Air 02/14/24 03:00 36.6 C 56 L 16 126/74 95 CPAP 02/14/24 00:31 58 L 02/13/24 22:42 36.7 C 57 L 16 127/68 96 Room Air Laboratory Results Laboratory Results - last 24 hr 02/14/24 08:24 Sodium 134 L Potassium 4.3 Chloride 103 Carbon Dioxide 23 Anion Gap 8 BUN 25 H Creatinine 0.80 Est Cr Clr Drug Dosing 59.1 Est GFR ( Amer) 84.8 Est GFR (Non-Af Amer) 73.1 BUN/Creatinine Ratio 31.3 H Glucose 89 Calcium 9.4 Diagnostic Findings Limited echocardiogram 02/13/2024 Small pericardial effusion improved from prior studies. No hemodynamic significance
[2024-02-14] MEDS: METOPROLOL TARTRATE 1 MG/ML VIAL IV ONE (11:53)
[2024-02-14] MEDS ORDERED: METOPROLOL SUCC 50MG EXT REL TAB PO ONE (12:15)
[2024-02-14] MEDS: METOPROLOL SUCC 25MG EXT REL TAB PO ONE (13:03)
--- NOTE | 2024-02-14 13:12 | Hospitalist Progress Note ---
Date of Service February 14, 2024 Assessment & Plan (1) Atrial fibrillation with rapid ventricular response: (2) Ischemic cerebrovascular accident (CVA): (3) HTN (hypertension): (4) Effusion, pericardium: Plan Atrial fibrillation with rapid ventricular response: Presented with A-fib RVR rates up to the 140s. Following Cardizem 10 mg, 5 mg, 5 mg had initial improved rate control and then converted to NSR Patient had been titrated off of beta-blockers as outpatient due to light headedness however has had recurrence of RVR with this S/p Watchman procedure at [facility] [place], Anticoagulation contraindicated due to intracranial bleed CT with posterior pericardial effusion, no evidence of tamponade. Echo ordered to further characterize. Patient follows with [facility] cardiology, consulted Patient was started on Cardizem drip yesterday but has been transitioned to oral. -Amiodarone not a good choice given her COPD and also reduced diffusion capacity and muscle dystrophy. -Repeat 2D echo Show some improvement in the effusion -Diltiazem have been discontinued -Patient was initiated on dofetilide 500 mcg twice daily, However she had further arrhythmias and dofetilide Was discontinued -Now started on verapamil 180 mg, which the patient seems to be tolerating so far she feels a lot better. #Bradycardia - resolved #Posterior pericardial effusion - ECHO reviewed, Repeat echoes have shown some improvement in pericardial effusion. 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 difficile 2 weeks ago with complete resolution of symptoms after 10 days of vancomycin but did have several days of diarrhea (likely contributed to her admission magnesium/potassium levels) Chronic stable issues: GERD: Continue PPI COPD: No acute exacerbation. Continue inhalers DVT prophylaxis: Pharmacal prophylaxis contraindicated due to history of recent ICH. SCDs Disposition: PCU, pending heart rate control CODE STATUS: Full code Diet: Heart healthy Admission and Anticipated Discharge Date Admission Date: February 07, 2024 Subjective Patient seen and examined today, at the bedside, says she feels a lot better following introduction of verapamil Review of Systems Review of Systems: All systems reviewed are negative, apart from the ones contained in the history. Physical Exam Physical Exam: The patient is awake, alert and oriented 3, well developed and well nourished, normocephalic and atraumatic, lying in bed and in no acute distress. HEENT--PERRL, EOMI, mucous membranes and oropharynx mildly dry Neck--supple. No JVD. No bruits. Thyroid normal, trachea midline, no adenopathy. Heart--normal S1 and S2. No murmurs, rubs or gallops. Lungs--clear bilaterally, no respiratory distress, no accessory muscle use. Abdomen--normal bowel sounds and soft. Extremities--no cyanosis or clubbing. No edema. Dermatologic--normal skin turgor, normal color, no abnormal lymph nodes, no rash. Neurologic--cranial nerves II through XII grossly intact. Rheumatologic--normal range of motion. Psychiatric--normal affect. Results & Data Results & Data Vital Signs (Past 12 Hours) Vital Signs Temp Pulse Pulse Resp BP BP BP 02/14/24 12:43 72 111/72 02/14/24 12:22 02/14/24 11:53 150 H 109/59 L 02/14/24 11:35 97.7 F 135 H 20 109/59 L 02/14/24 09:58 60 02/14/24 08:14 97.9 F 67 18 160/80 H 02/14/24 03:00 97.9 F 56 L 16 126/74 Pulse Ox O2 Del Method O2 Flow Rate 02/14/24 12:43 02/14/24 12:22 Nasal Cannula 2 02/14/24 11:53 02/14/24 11:35 93 Room Air 02/14/24 09:58 02/14/24 08:14 95 Room Air 02/14/24 03:00 95 CPAP PG Care Time/CCT Total # of Minutes Spent Total Time Spent with Patient: Total time spent is greater than 50% in coordination of care (as documented) at patient's floor/unit and/or counseling patient: Coding Level of Care Code 51268 SUB INP/OBS CARE 2/35MIN Diagnoses Atrial fibrillation with rapid ventricular response I48.91 Ischemic cerebrovascular accident (CVA) I63.9 HTN (hypertension) I10 Effusion, pericardium I31.39 Time Spent (min) 35
--- NOTE | 2024-02-14 13:50 | Electrocardiogram Report ---
Test Reason : Blood Pressure : / mmHG Vent. Rate : 087 BPM Atrial Rate : 087 BPM P-R Int : 170 ms QRS Dur : 092 ms QT Int : 432 ms P-R-T Axes : 055 061 -01 degrees QTc Int : 519 ms Sinus rhythm with Premature atrial complexes Left atrial enlargement Low voltage QRS RSR' or QR pattern in V1 suggests right ventricular conduction delay Nonspecific T wave abnormality Prolonged QT Abnormal ECG When compared with ECG of 13-FEB-2024 07:42, Premature atrial complexes are now Present QT has shortened Confirmed by Rubén Ojeda ([id number]) on 02/14/2024 1:49:52 PM Referred By: Becky Tavarez Confirmed By:Wei Ojeda
[2024-02-14] MEDS: LORazepam 0.25 MG in SYRINGE 0.125 ML IV STA (21:14)
--- NOTE | 2024-02-15 07:55 | Pre Anesthesia Assessment ---
Date of Service February 15, 2024 Pre Sedation Assessment Vital Signs Temp Pulse Pulse Resp BP BP BP 02/15/24 07:14 36.8 C 14 162/75 H 02/15/24 02:31 36.8 C 53 L 16 137/68 02/14/24 23:05 62 02/14/24 22:52 36.7 C 59 L 18 145/71 H 02/14/24 22:03 02/14/24 19:36 36.8 C 66 16 134/83 02/14/24 15:29 36.6 C 63 18 131/74 02/14/24 12:43 72 111/72 02/14/24 12:22 02/14/24 11:53 150 H 109/59 L 02/14/24 11:35 36.5 C 135 H 20 109/59 L 02/14/24 09:58 60 02/14/24 08:14 36.6 C 67 18 160/80 H Pulse Ox O2 Del Method O2 Flow Rate 02/15/24 07:14 95 Room Air 02/15/24 02:31 98 CPAP 02/14/24 23:05 02/14/24 22:52 98 CPAP 02/14/24 22:03 CPAP 02/14/24 19:36 96 Room Air 02/14/24 15:29 93 Room Air 02/14/24 12:43 02/14/24 12:22 Nasal Cannula 2 02/14/24 11:53 02/14/24 11:35 93 Room Air 02/14/24 09:58 02/14/24 08:14 95 Room Air Cardiovascular + bradycardic Respiratory normal respiratory effort, lungs clear to auscultation Pre-Sedation Airway Assessment Smoking Status: Former smoker Hx Sleep Apnea: No Short, Thick Neck: No Thyromental Distance: > or= 3.5 Finger Breadths Oral Cavity: + WNL Mallampati Class: II ASA: ASA2 NPO Status Date of Last Intake of Fluids: 02/14/24 Time of Last Intake of Fluids: 20:30 Date of Last Intake of Solid Food: 02/14/24 Time of Last Intake of Solid Foods: 20:30 Procedure Planning Contraindications for Sedation: none Current Medications Reviewed: Yes Notes The planned sedation has been discussed with the patient. Informed Consent was obtained. I have identified the patient, determined the appropriateness of sedation and have assessed the patient immediately prior to the procedure. All medicine(s) and interventions are by my order.
--- NOTE | 2024-02-15 07:56 | History & Physical Bridge Note ---
Date of Service February 15, 2024 History & Physical Bridge Note I have examined the patient, reviewed the History & Physical and in the interval since the performance of the History & Physical I have noted the following changes of clinical significance: pt with TBS recommended a ppm discussed the procedure and potential risks with the pt she expressed an understanding and consents signed
[2024-02-15] MEDS: LIDOCAINE 1% LOCAL 20 ML VIAL ONE (08:36)
[2024-02-15] MEDS: diphenhydrAMINE 50 MG/ML VIAL ONE ×2 (08:37→10:27)
[2024-02-15] MEDS: BUPIVACAINE 0.25% PF 30 ML VIAL ONE (08:37)
[2024-02-15] MEDS: methylPREDNISolone 125 MG/2 ML VIAL ONE (08:37)
[2024-02-15] MEDS: WATER, STERILE FOR INJ 10 ML VIAL ONE (08:37)
[2024-02-15] MEDS: CLINDAMYCIN 900 MG/D5W 50 ML BAG IV ONE (08:38)
[2024-02-15] MEDS: MIDAZOLAM HCL 5 MG/ML 1 ML VIAL ONE (09:03)
[2024-02-15] MEDS: fentaNYL citrate PF 100 MCG/2 ML VIAL ONE (09:03)
--- NOTE | 2024-02-15 09:19 | Post Anesthesia Assessment ---
Date of Service February 15, 2024 Post Sedation Assessment Vital Signs Temp Pulse Pulse Resp BP BP BP 02/15/24 08:00 66 02/15/24 07:14 36.8 C 14 162/75 H 02/15/24 02:31 36.8 C 53 L 16 137/68 02/14/24 23:05 62 02/14/24 22:52 36.7 C 59 L 18 145/71 H 02/14/24 22:03 02/14/24 19:36 36.8 C 66 16 134/83 02/14/24 15:29 36.6 C 63 18 131/74 02/14/24 12:43 72 111/72 02/14/24 12:22 02/14/24 11:53 150 H 109/59 L 02/14/24 11:35 36.5 C 135 H 20 109/59 L 02/14/24 09:58 60 Pulse Ox O2 Del Method O2 Flow Rate 02/15/24 08:00 02/15/24 07:14 95 Room Air 02/15/24 02:31 98 CPAP 02/14/24 23:05 02/14/24 22:52 98 CPAP 02/14/24 22:03 CPAP 02/14/24 19:36 96 Room Air 02/14/24 15:29 93 Room Air 02/14/24 12:43 02/14/24 12:22 Nasal Cannula 2 02/14/24 11:53 02/14/24 11:35 93 Room Air 02/14/24 09:58 Recovery Score Activity: Moves 4 extremities Respiration: Deep Breath/Cough Circulation: +/-20% PreAnes Value Consciousness: Fully Awake Oxygen Saturation: > 92% On Room Air Discharge Sedation Level of Care: Fast Track Phase II Post Sedation Plan On clinical assessment, the patient appears to have tolerated the sedation without complications. Patient is recovering as anticipated. Patient will continue to be monitored by nursing and may be discharged when sedation discharge criteria are met per below protocol. Upon Completions of procedure up to 15 minutes continue every 5 minute vital signs and the P.A.R. score; then discharge to a Phase I or Fast Track to Phase II per the following guidelines: * Discharge Patient to appropriate Phase II area if PAR is 8 or greater or return to pre- procedure baseline. The post - procedure orders will be as directed. * If PAR score is less than 8 or not return to pre-procedure baseline then patient will follow Phase I monitoring till PAR is reached for Phase II. The Phase I may be done in procedure room or may call to secure a Phase I area. * If naloxone or flumazenil are used for reversal, hold in Phase I for continued monitoring from when last reversal dose was given for a minimum of 60 minutes or longer pending the nurse and/or physician discretion of patient condition before discharge to Phase II. Please call the Sedation Physician to re-evaluate and complete post-note for discharge to Phase II area. Do NOT discharge from procedure sedation or Phase 1 until post- sedation evaluation note is complete by procedure /sedation MD Sedation Discharge Instructions to be given to the patient at discharge to home.
[2024-02-15] MEDS: VANCOMYCIN HCL 1000MG/20ML VIAL ONE (10:26)
[2024-02-15] MEDS: VERAPAMIL HCL 180 MG TABCR PO SCH (10:46)
--- NOTE | 2024-02-15 11:26 | XRay Report ---
SINGLE VIEW CHEST CLINICAL HISTORY: Pacemaker implantation. FINDINGS: An AP, portable, upright chest radiograph is compared to study dated 02/09/2024 and correlate d with chest CT dated 02/07/2024. A 2-lead cardiac pacemaker has been implanted and partially obscures the left upper chest. Leads project over the right atrial appendage and the right ventricle. A device is noted in the left atrial appendage. The heart is enlarged noting atherosclerotic calcification of the thoracic aorta. The pulmonary vasculature is noncongested. Emphysema and chronic interstitial th ickening is similar to previous. There is bibasilar scarring/atelectasis. There are scattered calcifi ed granulomas. The lungs and pleural spaces are otherwise clear. No pneumothorax is seen. The skeleta l structures are osteopenic. The bony thorax is grossly intact. IMPRESSION: 1. A 2-lead cardiac pacemaker has been implanted as above. No pneumothorax is identified post procedu re. 2. Cardiomegaly and emphysema without radiographic evidence of congestive failure. 3. No airspace consolidation or large pleural effusion is identified. ACT 112: Negative or not required by law. Electronically signed by: Carlos Vicente M.D. 02/15/2024 11:25 AM
--- NOTE | 2024-02-15 11:34 | Cardiology Progress Note ---
Date of Service February 15, 2024 Assessment & Plan (1) Paroxysmal atrial fibrillation: (2) Effusion, pericardium: (3) Presence of Watchman left atrial appendage closure device: Plan Recurrent symptomatic atrial fibrillation/atypical flutter with a rapid ventricular response. Status post Watchman device implantation on 01/30/2024. Pericardial effusion without tamponade physiology per initial echocardiogram. Dyspnea improved off of beta-kell therapy. Examination without volume overload. Recommendations: 1. Antiarrhythmic therapy considered however patient with documented difficulty tolerating low-dose beta-kell therapy and I am concerned regarding the use of amiodarone given her COPD, reduced DLCO via July 2023 PFTs, muscular dystrophy, tremor, GI issues. 2. Patient received oral Cardizem 120 mg/day at 08:21 AM. 3. Start a diltiazem drip 4. Limited TTE to reassess the pericardial effusion 5. Continue colchicine, 0.6 mg ONCE daily given concurrent use of Cardizem, weight less than 70 kg 6. Clopidogrel prescribed due to recent implantation of Watchman device; outpatient transesophageal echocardiogram scheduled 45 days post procedure. 02/11/2024 Patient in sinus rhythm this morning with IV diltiazem Now on oral diltiazem begun yesterday will increase to twice per day 120 mg CD. Reduce hydralazine to 75 mg 3 times daily to allow for increase in calcium channel kell Atrial fibrillation discussed in detail with patient including options of man agement Echo pending for today Will need to observe at least additional 24 hours 02/12/2024 Initially demonstrating clinical improvement no signs of worsening pericardial effusion, pleuritic pain. Did lapse into atrial fibrillation however after initial examination Will give dose of IV metoprolol Reassess for antiarrhythmic therapy. Discussed above in detail with patient and . Will initiate dofetilide this admission beginning at 500 mcg twice daily. Anticipate 3 days monitoring Diltiazem oral and IV discontinued 02/13/2024 Paroxysmal atrial fibrillation remains a concern. Trial of antiarrhythmic therapy with Tikosyn resulted in marked prolongation of QT interval. Medication discontinued after 2 doses. Patient returned to atrial fibrillation once again this morning Plan: Add calcium channel kell back given poor tolerance of beta-kell will trial verapamil 180 mg p.o. daily first dose this morning. Colchicine held Discussed pacemaker with AV junction ablation once again and may ultimately proceed to this. Echocardiogram ordered to reassess pericardial effusion 02/14/2024 Clinically improved today. Echocardiogram yesterday improved pericardial effusion. No further atrial arrhythmias EKG reveals normalization of QT prolongation Issues addressed as follows 1. Paroxysmal atrial fibrillation: Longstanding with recent increase in frequency possible in relationship to procedures and pericardial effusion. Poor tolerance of beta-kell with pulmonary contraindications to amiodarone. Trial of Tikosyn resulted in marked QT prolongation. Currently on verapamil SR 180 mg/day and will continue Underwent watchman and contraindications to anticoagulation present 2. Postprocedural pericardial effusion improving Plan: Continue verapamil as ordered. Increase activities in hospital/PT OT while on telemetry additional 24 hours Continue prednisone with slow taper for pericardial effusion 02/15/2024 1. Paroxysmal atrial fibrillation: Borderline tachybradycardia syndrome present with multiple trials of medications including antiarrhythmic therapy with significant QT prolongation. Patient underwent dual-chamber pacemaker today. Plan will be to upward titrate to verapamil SR to 180 mg twice per day. No concerns regarding bradycardia and blood pressure. If blood pressure declines would reduce hydralazine further Will observe overnight If atrial fibrillation becomes persistently intolerant. Plan for AV junction ablation in future post Contraindications to anticoagulation status post Watchman procedure 2. Pericardial effusion post procedural following Watchman procedure. Echocardiogram serially have demonstrated declining effusion and no evidence of tamponade. Currently on prednisone would initiate slow taper. Will reduce prednisone to 20 mg daily. Admission and Anticipated Discharge Date Admission Date: February 07, 2024 Subjective Patient seen and examined both prior to pacemaker and after pacemaker insertion Tolerated procedure well. Blood pressure is elevated this morning but just received a.m. medications. No atrial fibrillation overnight No pneumothorax on chest x-ray post procedure Review of Systems Review of Systems: All systems reviewed & are unremarkable except as noted in Subjective Physical Exam Constitutional: well nourished; no acute distress Eyes: PERRL, conjunctivae normal, anicteric sclerae Neck: trachea midline, no thyromegaly Respiratory: no respiratory distress, no labored breathing and no retractions Auscultation: + diminished lung sounds and + crackles (Few crackles left base but otherwise clear); no rales, no rhonchi and no wheezes Cardiovascular: Rate/Rhythm: regular rate and regular rhythm Heart Sounds: normal S1 and normal S2; no murmur Vessels: radial pulses present; no JVD and no carotid bruit Extremities: no edema Chest (Breasts): Chest: + pacemaker (Site bandaged) Gastrointestinal (Abdomen): Inspection/Auscultation: abdomen normal to ins pection and normal bowel sounds; abdomen not distended Percussion/Palpation: abdomen soft; abdomen nontender, no guarding and abdomen not rigid Musculoskeletal: Extremities: extremities normal to inspection Neurologic: CN's II-XI intact bilaterally and moves all extremities; no focal motor deficits Results & Data Vital Signs (Past 12 Hours) Vital Signs Temp Pulse Pulse Resp BP Pulse Ox O2 Del Method 02/15/24 10:50 66 22 166/74 H 94 Room Air 02/15/24 09:45 36.5 C 62 18 179/80 H 94 Room Air 02/15/24 09:39 60 18 180/81 H 95 Room Air 02/15/24 09:25 60 18 179/100 H 95 Room Air 02/15/24 08:00 66 02/15/24 07:14 36.8 C 14 162/75 H 95 Room Air 02/15/24 02:31 36.8 C 53 L 16 137/68 98 CPAP
--- NOTE | 2024-02-15 12:50 | Electrocardiogram Report ---
Test Reason : Blood Pressure : / mmHG Vent. Rate : 062 BPM Atrial Rate : 062 BPM P-R Int : 170 ms QRS Dur : 086 ms QT Int : 502 ms P-R-T Axes : 043 031 008 degrees QTc Int : 509 ms Sinus rhythm with Premature atrial complexes Prolonged QT Abnormal ECG When compared with ECG of 14-FEB-2024 09:32, No significant change was found Confirmed by Rubén Ojeda ([id number]) on 02/15/2024 12:49:51 PM Referred By: Becky Tavarez Confirmed By:Wei Ojeda
--- NOTE | 2024-02-15 12:50 | Hospitalist Progress Note ---
Date of Service February 15, 2024 Assessment & Plan (1) Atrial fibrillation with rapid ventricular response: (2) Ischemic cerebrovascular accident (CVA): (3) HTN (hypertension): (4) Effusion, pericardium: Plan Atrial fibrillation with rapid ventricular response: Presented with A-fib RVR rates up to the 140s. -Was trialed open diltiazem and also dofetilide but not well-tolerated. -Patient is now status post dual chamber pacemaker -Per cardiology, will continue verapamil 180 mg BID -There may be plan for future AV junction ablation if A-fib continues to be intolerant -Moderate candidate for anticoagulation given previous ischemic bleed, she is status post Watchman device, #Posterior pericardial effusion - ECHO reviewed, Repeat echoes have shown some improvement in pericardial effusion. 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 difficile 2 weeks ago with complete resolution of symptoms after 10 days of vancomycin but did have several days of diarrhea (likely contributed to her admission magnesium/potassium levels) Chronic stable issues: GERD: Continue PPI COPD: No acute exacerbation. Continue inhalers DVT prophylaxis: Pharmacal prophylaxis contraindicated due to history of recent ICH. SCDs Disposition: PCU, pending heart rate control CODE STATUS: Full code Diet: Heart healthy Admission and Anticipated Discharge Date Admission Date: February 07, 2024 Subjective Patient seen and examined, she is stable post pacemaker placement Review of Systems Review of Systems: All systems reviewed are negative, apart from the ones contained in the history. Physical Exam Physical Exam: The patient is awake, alert and oriented 3, well developed and well nourished, normocephalic and atraumatic, lying in bed and in no acute distress. HEENT--PERRL, EOMI, mucous membranes and oropharynx mildly dry Neck--supple. No JVD. No bruits. Thyroid normal, trachea midline, no adenopathy. Heart--normal S1 and S2. No murmurs, rubs or gallops. Lungs--clear bilaterally, no respiratory distress, no accessory muscle use. Abdomen--normal bowel sounds and soft. Extremities--no cyanosis or clubbing. No edema. Dermatologic--normal skin turgor, normal color, no abnormal lymph nodes, no rash. Neurologic--cranial nerves II through XII grossly intact. Rheumatologic--normal range of motion. Psychiatric--normal affect. Results & Data Results & Data Vital Signs (Past 12 Hours) Vital Signs Temp Pulse Pulse Resp BP Pulse Ox O2 Del Method 02/15/24 10:50 66 22 166/74 H 94 Room Air 02/15/24 09:45 97.7 F 62 18 179/80 H 94 Room Air 02/15/24 09:39 60 18 180/81 H 95 Room Air 02/15/24 09:25 60 18 179/100 H 95 Room Air 02/15/24 08:00 66 02/15/24 07:14 98.2 F 14 162/75 H 95 Room Air 02/15/24 02:31 98.2 F 53 L 16 137/68 98 CPAP PG Care Time/CCT Total # of Minutes Spent Total Time Spent with Patient: Total time spent is greater than 50% in coordination of care (as documented) at patient's floor/unit and/or counseling patient: Coding Level of Care Code 32540 SUB INP/OBS CARE 2/35MIN Diagnoses Atrial fibrillation with rapid ventricular response I48.91 Ischemic cerebrovascular accident (CVA) I63.9 HTN (hypertension) I10 Effusion, pericardium I31.39 Time Spent (min) 35
[2024-02-16 06:24] LABS: Hematocrit (blood only) 40.2 % (37.0-47.0); Hemoglobin 13.7 g/dl (12.0-16.0); Mean Corpuscular Hemoglobin 31.4 pg (25.0-34.0); Mean Corpuscular Hgb Conc 34.1 g/dL (32.0-36.0); Mean Platelet Volume 9.2 fL (9.4-12.4); Platelet Count 362 K/uL (130-400); RDW Coefficient of Variation 12.6 % (11.5-14.5); RDW Standard Deviation 41.8 fL (36.4-46.3); Red Blood Count 4.37 M/uL (4.20-5.40)
[2024-02-16 06:33] LABS: Anion Gap 6 (3-11); Blood Urea Nitrogen 24 mg/dl (6-23); Carbon Dioxide 24 mmol/L (21-32); Chloride 102 mmol/L (98-107); Creatinine Clr Calc Pharmacy 63.1 ml/min; Est GFR (African American) 91.7 ml/min; Est GFR (Non-African American) 79.1 ml/min; Glucose 89 mg/dl (70-99(Fasting)); Sodium 132 mmol/L (136-145)
[2024-02-16] MEDS: predniSONE 20 MG TAB PO SCH (08:30)
[2024-02-16] MEDS: traMADol HCL 50 MG TABLET PO STA (09:15)
--- NOTE | 2024-02-16 09:57 | Cardiology Progress Note ---
Date of Service February 16, 2024 Assessment & Plan (1) Paroxysmal atrial fibrillation: (2) Effusion, pericardium: (3) Presence of Watchman left atrial appendage closure device: Plan 1. Paroxysmal atrial fibrillation: Borderline tachybradycardia syndrome present with multiple trials of medications including antiarrhythmic therapy with significant QT prolongation. Patient underwent dual-chamber pacemaker 02/15/24. Continue verapamil 180 mg twice per day. If atrial fibrillation becomes persistently intolerant can consider AV junction ablation Contraindications to anticoagulation status post Watchman procedure 2. Pericardial effusion post procedural following Watchman procedure. Echocardiogram serially have demonstrated declining effusion and no evidence of tamponade. Currently on prednisone, recommend slow taper. Recommend 1 week cardiology follow up with limited echo. Case discussed with supervising physician, further recommendations per Dr. Alexander. I spent a total of 30 minutes on the date of service in preparation, delivery, and documentation of the care provided to this patient excluding any time spent in the performance of separately billed services. This visit was a split-shared visit with the substantial portion of the decision making performed by the supervising transcription/billing provider. Admission and Anticipated Discharge Date Admission Date: February 07, 2024 Supervising Physician Co-Signing Physician Notes I have personally performed a history and physical examination on the patient. I have reviewed the advance practitioner's documentation, and I agree with, and take responsibility for the plan of care. I spent a total of 30 minutes on the date of service in preparation, delivery, and documentation of the care provided to this patient, excluding any time spent in the performance of separately billed services. Patient doing well today. She denies chest pain, dyspnea, or syncope. On clinical exam she is euvolemic. No events noted overnight on telemetry. Pacemaker site clean dry and intact. Would recommend 1 week follow-up with cardiology but a limited echocardiogram to reassess her pericardial effusion. Will need a slow taper of her prednisone. Was not able to tolerate colchicine due to diarrhea. Patient advised if she developed any worsening symptoms immediately come to the emergency room. Subjective On evaluation today, she is resting comfortably in bed. States she is a little sore at pacemaker site, but otherwise feels well. Denies chest pain, shortness of breath, palpitations, lightheadedness. She is eager to go home. Review of Systems Review of Systems: CONSTITUTIONAL: No change in weight, No weakness, No fatigue and No fevers, No sweats or chills. PULMONARY: No cough, sputum, or hemoptysis, No wheezing, No shortness of breath and No recent change in breathing. CARDIOVASCULAR: No chest pain, No dyspnea on exertion, No edema, No palpitations and No syncope. GASTROINTESTINAL: No abdominal pain, No change in bowel habits, No significant heartburn, No nausea, No vomiting, No diarrhea, No constipation, No blood in stools or black tarry stools. No dysphagia. HEMATOLOGIC: No abnormal bleeding and No bruising. NEUROLOGICAL: Normal balance, No headaches and No weakness. Physical Exam Physical Exam: General: No acute distress. A+Ox3. HEENT: Normocephalic. Atraumatic. PERRL. EOMI. Conjunctiva and sclera clear. NECK: No carotid bruits. No JVD. Carotid upstrokes are brisk. Heart: RRR. S1 and S2 noted. No murmur. No rubs or gallops. PMI non displaced. Dressing in place over pacemaker incision site. Lungs: Clear to auscultation. No wheezes. No rhonchi. No rales. Abdomen: Normal bowel sounds. Soft. Nontender. No masses or organomegaly. No abdominal bruits. Extremities: No edema. No clubbing or cyanosis. Pulses: radial=2/4, posterior tibial=2/4, dorsalis pedis = 2/4. NEURO: No focal deficits. PSYCH: Appropriate affect and insight. Results & Data Vital Signs (Past 12 Hours) Vital Signs Temp Pulse Pulse Resp BP Pulse Ox O2 Del Method 02/16/24 08:09 36.3 C L 63 18 165/82 H 95 Room Air 02/16/24 03:15 36.4 C L 60 22 144/78 H 97 CPAP 02/15/24 22:55 36.5 C 70 21 137/76 96 Room Air 02/15/24 22:00 74 Laboratory Results CBC 02/16/24 Range/Units 05:49 WBC 15.30 H (4.8-10.8) K/ul RBC 4.37 (4.20-5.40) M/uL Hgb 13.7 (12.0-16.0) g/dl Hct 40.2 (37.0-47.0) % Plt Count 362 (130-400) K/uL Comprehensive Metabolic Panel 02/16/24 02/16/24 02/16/24 Range/Units 05:49 06:40 08:16 Sodium 132 L (136-145) mmol/L Potassium TNP TNP 4.4 Chloride 102 (98-107) mmol/L Carbon Dioxide 24 (21-32) mmol/L BUN 24 H (6-23) mg/dl Creatinine 0.75 (0.6-1.2) mg/dl Glucose 89 (70-99(Fasting)) mg/dl Calcium 9.0 (8.6-10.3) mg/dl Intake and Output 02/15/24 02/16/24 02/16/24 22:59 06:59 14:59 Intake Total 480 / 720 240 / 720 Balance 480 / 720 240 / 720 Intake: Oral 480 / 720 240 / 720 Other: # Unmeasured Voids 1 2 Weight 67.2 kg Weight Measurement Method Built in [facility] Diagnostic Findings EKG 02/15/24 NSR, 62 bpm, T wave abnormalities Telemetry with NSR, heart rate in 60s
--- NOTE | 2024-02-16 10:36 | Hospitalist Progress Note ---
Date of Service February 16, 2024 Assessment & Plan (1) Atrial fibrillation with rapid ventricular response: (2) Ischemic cerebrovascular accident (CVA): (3) HTN (hypertension): (4) Effusion, pericardium: Plan Atrial fibrillation with rapid ventricular response: Presented with A-fib RVR rates up to the 140s. -Was trialed open diltiazem and also dofetilide but not well-tolerated. -Patient is now status post dual chamber pacemaker -Per cardiology, will continue verapamil 180 mg BID -There may be plan for future AV junction ablation if A-fib continues to be intolerant -Not a candidate for anticoagulation given previous ischemic bleed, she is status post Watchman device, -Repeat EKG today shows normal sinus rhythm with low voltage -Await final recommendations from cardiology, patient states she wants to go home #Posterior pericardial effusion - ECHO reviewed, Repeat echoes have shown some improvement in pericardial effusion. 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 difficile 2 weeks ago with complete resolution of symptoms after 10 days of vancomycin but did have several days of diarrhea (likely contributed to her admission magnesium/potassium levels) -No more diarrhea since this admission Chronic stable issues: GERD: Continue PPI COPD: No acute exacerbation. Continue inhalers DVT prophylaxis: Pharmacal prophylaxis contraindicated due to history of recent ICH. SCDs Disposition: PCU, pending heart rate control CODE STATUS: Full code Diet: Heart healthy Admission and Anticipated Discharge Date Admission Date: February 07, 2024 Subjective Patient seen and examined, complains of some soreness around the pacemaker area, Tylenol did not help, ordered tramadol Review of Systems Review of Systems: All systems reviewed are negative, apart from the ones contained in the history. Physical Exam Physical Exam: The patient is awake, alert and oriented 3, well developed and well nourished, normocephalic and atraumatic, lying in bed and in no acute distress. HEENT--PERRL, EOMI, mucous membranes and oropharynx mildly dry Neck--supple. No JVD. No bruits. Thyroid normal, trachea midline, no adenopathy. Heart--normal S1 and S2. No murmurs, rubs or gallops. Lungs--clear bilaterally, no respiratory distress, no accessory muscle use. Abdomen--normal bowel sounds and soft. Extremities--no cyanosis or clubbing. No edema. Dermatologic--normal skin turgor, normal color, no abnormal lymph nodes, no rash. Neurologic--cranial nerves II through XII grossly intact. Rheumatologic--normal range of motion. Psychiatric--normal affect. Results & Data Results & Data Vital Signs (Past 12 Hours) Vital Signs Temp Pulse Resp BP Pulse Ox O2 Del Method 02/16/24 08:09 97.3 F L 63 18 165/82 H 95 Room Air 02/16/24 03:15 97.5 F L 60 22 144/78 H 97 CPAP 02/15/24 22:55 97.7 F 70 21 137/76 96 Room Air PG Care Time/CCT Total # of Minutes Spent Total Time Spent with Patient: Total time spent is greater than 50% in coordination of care (as documented) at patient's floor/unit and/or counseling patient: Coding Level of Care Code 22526 SUB INP/OBS CARE 2/35MIN Diagnoses Atrial fibrillation with rapid ventricular response I48.91 Ischemic cerebrovascular accident (CVA) I63.9 HTN (hypertension) I10 Effusion, pericardium I31.39 Time Spent (min) 35
--- NOTE | 2024-02-16 11:48 | Electrocardiogram Report ---
Test Reason : Blood Pressure : / mmHG Vent. Rate : 062 BPM Atrial Rate : 062 BPM P-R Int : 170 ms QRS Dur : 094 ms QT Int : 480 ms P-R-T Axes : 034 047 011 degrees QTc Int : 487 ms Normal sinus rhythm Low voltage QRS Poor R wave progression, consider anterior [place] vs. lead placement vs. LVH Abnormal ECG When compared with ECG of 15-FEB-2024 07:39, Premature atrial complexes are no longer Present Borderline criteria for Anterior infarct are now Present Borderline criteria for Anterolateral infarct are now Present Confirmed by Levar Devine ([id number]) on 02/16/2024 11:48:10 AM Referred By: Becky Tavarez Confirmed By:Levar Devine
--- NOTE | 2024-02-16 12:18 | Discharge Summary ---
Date of Service February 16, 2024 Admission HPI Per Admitting Provider Danielle is a 73-year-old female with past medical history of muscular dystrophy, tobacco abuse, COPD, JG and recent CVA 11/2023 treated with TNKase and subsequently with left-sided intracerebral hemorrhage with midline shift and subarachnoid extension who was transferred to [facility] for 6.7 x 3 cm left parietal intraparenchymal hemorrhage, 4 mm posterior parietal subdural hematoma, and trace scattered subarachnoid hemorrhage with 3 mm of midline cyst. She was treated with Keppra, TXA, and cryo with nicardipine drip while at [facility]. Original stroke acute right thalamic and left paramedial frontal lobe suspected to be due to cardioembolic from atrial flutter. During her hospitalization she did have runs of a flutter/A-fib. Patient stabilized during that admission and was discharged in fair condition on aspirin 81 mg daily pending follow-up for Ignacio procedure. She presented to the ER 02/07/2024 with difficulty breathing. On ER evaluation she was found to be in RVR with a heart rate in the 140s, A-fib. She was treated with diltiazem 10 mg, 5 mg, 5 mg with improvement to the 1001 20s. CTA showed no evidence of PE. Pericardial effusion significantly enlarged from prior exam present but without evidence of cardiac tamponade. CThead did not show evidence of acute bleed or stroke. Chest x-ray was normal. Potassium 3.1, repleted. BMP mildly elevated to 42, troponin mildly elevated at 15.6. TSH was normal. UA was uninfected. Was recommended for admission and treatment of A-fib with RVR. Last few days intermittent tachycardia, dyspnea, and palpitations over the last few days but most of the time had symptoms. Had been titrated off metoprolol 2 days ago, had d/kiersten this as she was lightheaded, dizzy, and 'in fog' while on it. Stopping the MTP did help these symptoms. Had Watchman procedure 1 week ago at [facility], normally follows [place]/ [place]. Currie [place] [facility]. She is on both aspirin and plaavix since the watchman, is going to be on DAPT for 45 then days then will have re-evaluation and may go back to monotherapy. Is follwoing with [facility] clinical at [place]. Phone # there is [phone]. No chest pain at time off assessment. no lightheadedness or dizziness at assessment No fevers, chills, or sweats No cough or wheezing no SoB at reassessment Has residual weakness in arm and leg, although improved with rehab post stroke. no change in symptoms recently. Some decreased sensation in her chest, and slightly in the L foot otherwise denies numbness/tingling. No headache on assessments Had C difficile 2 weeks ago, was treated 10 days of vancomycin with resolution of symptoms. Medical History: Reviewed Medications: Reviewed. Tooks meds including ASA and Plaavix this am, Surgical History: Reviewed Family history: Reviewed Allergies: Reviewed Social History: No tobacco use, 1/2 glass wine with dinner Code Status: Full Code Principal Diagnosis Atrial fibrillation, Discharge Exam The patient is awake, alert and oriented 3, well developed and well nourished, normocephalic and atraumatic, lying in bed and in no acute distress. HEENT--PERRL, EOMI, mucous membranes and oropharynx mildly dry Neck--supple. No JVD. No bruits. Thyroid normal, trachea midline, no adenopathy. Heart--normal S1 and S2. No murmurs, rubs or gallops. Lungs--clear bilaterally, no respiratory distress, no accessory muscle use. Abdomen--normal bowel sounds and soft. Extremities--no cyanosis or clubbing. No edema. Dermatologic--normal skin turgor, normal color, no abnormal lymph nodes, no rash. Neurologic--cranial nerves II through XII grossly intact. Rheumatologic--normal range of motion. Psychiatric--normal affect. Discharge Data Allergies Allergy/AdvReac Type Severity Reaction Status Date / Time Iodinated Contrast Media Allergy Intermediate Hives Verified 02/07/24 15:52 mold Allergy Intermediate SNEEZING/CO Verified 02/07/24 15:52 NGESTION moxifloxacin [From Avelox] Allergy Intermediate ITCHING/YEAST Verified 02/07/24 15:52 INFECTION Tetracyclines Allergy Intermediate ? ITCH ALL Verified 02/07/24 15:46 OVER, PT NOT SURE adhesive Allergy Mild ITCHY RASH Verified 02/07/24 15:52 amlodipine AdvReac Intermediate FATIGUE/CON Verified 02/07/24 15:52 STIPATION cefuroxime AdvReac Intermediate CAUSED C. Verified 02/07/24 15:52 DIFF INFECTION Consultations 02/07/24 16:48 ED Decision to Admit Stat 02/07/24 17:25 Consult Cardiology Routine Procedures Performed Operation Date: 02/15/24 07:30 Actual Procedures p Pacer with A/V Leads (Dual) - DO marion Sandoval Bundle of his Recording - Danielle Steve DO s Venogram, Unilateral - Danielle Steve DO Ordered Studies 02/07/24 13:37 CT head/brain wo con Stat 02/07/24 14:55 CT angio chest PE protocol Stat 02/08/24 09:54 US venous duplex leg [US venous doppler LE BI] Routine 02/15/24 06:45 EP Lab Images for PACS ONCE Hospital Course (1) Atrial fibrillation with rapid ventricular response: (2) Ischemic cerebrovascular accident (CVA): (3) HTN (hypertension): (4) Effusion, pericardium: Plan Atrial fibrillation with rapid ventricular response: Presented with A-fib RVR rates up to the 140s. -Was trialed open diltiazem and also dofetilide but not well-tolerated. -Patient is now status post dual chamber pacemaker -Per cardiology, will continue verapamil 180 mg BID -There may be plan for future AV junction ablation if A-fib continues to be intolerant -Not a candidate for anticoagulation given previous ischemic bleed, she is status post Watchman device, -Repeat EKG today shows normal sinus rhythm with low voltage -Await final recommendations from cardiology, patient states she wants to go home #Posterior pericardial effusion - ECHO reviewed, Repeat echoes have shown some improvement in pericardial effusion. 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 difficile 2 weeks ago with complete resolution of symptoms after 10 days of vancomycin but did have several days of diarrhea (likely contributed to her admission magnesium/potassium levels) -No more diarrhea since this admission Chronic stable issues: GERD: Continue PPI COPD: No acute exacerbation. Continue inhalers DVT prophylaxis: Pharmacal prophylaxis contraindicated due to history of recent ICH. SCDs Disposition: PCU, pending heart rate control CODE STATUS: Full code Diet: Heart healthy Total Time Total Time Spent Total Time Spent (In Minutes): 35 Discharge Plan Discharge Items Patient Disposition: Home - Self-Care Reason For Visit: AFIB RVR, PERICARDIAL EFFUSION Discharge Diagnosis: Atrial fibrillation, pericardial effusion Activity: As commented below Activity Comment: do not raise the left elbow over the left shoulder for 1 month Lifting: No more than 10 pounds Lifting Comment: do not lift more than 10 pounds with the left arm for 2 weeks Bathing: Keep incision dry Bathing Comment: keep dressing on & dry until wound check next week Non-emergency contact: Chief Psychologist Call non-emergency contact if: you have any medication questions Follow-up/Referrals: Becky Tavarez MD [Primary Care Provider] - Diet: Regular Addtl Attending Provider Instructions: Device and wound check next week at [facility] Try to wear the surgical bra or sports bra for the next few weeks to help with wound healing Pending Studies at Discharge: No Stand-Alone Forms: My [employer], Smoking Cessation Medications and DC Order Prescriptions: New prednisone 20 mg Tablet 20 mg PO DAILY 5 Days Qty: 5 0RF verapamil 180 mg Tablet Extended Release 180 mg PO BID 30 Days Qty: 60 0RF Continued esomeprazole magnesium 40 mg capsule,delayed release(DR/EC) 40 mg PO QPM Qty: 90 3RF Trelegy Ellipta 100-62.5-25 mcg blister with device 1 inh inhalation DAILY Qty: 3 3RF metoclopramide HCl 10 mg tablet 10 mg PO TID fluticasone propionate [Flonase Allergy Relief] 50 mcg/actuation spray,suspension 2 spray intranasal DAILY PRN (Reason: Allergy Symptoms) Rx Instructions: administer into each nostril Zyrtec 10 mg capsule 10 mg PO DAILY PRN (Reason: Allergy Symptoms) albuterol sulfate [Ventolin HFA] 90 mcg/actuation HFA aerosol inhaler 2 puff inhalation Q4H PRN (Reason: Shortness Of Breath) Qty: 3 3RF Prolia 60 mg/mL syringe 60 mg subcut Q6MO acetaminophen [Tylenol Extra Strength] 500 mg Tablet 500 mg PO Q6H PRN (Reason: Pain) clopidogrel 75 mg tablet 75 mg PO QAM Rx Instructions: TAKE 1 TABLET EVERY MORNING multivitamin Tablet 1 tab PO QAM losartan 50 mg tablet 50 mg PO BID levetiracetam [Keppra] 500 mg Tablet 500 mg PO BID tramadol 50 mg Tablet 50 mg PO Q4H PRN (Reason: Pain) hydralazine 100 mg tablet 100 mg PO TID aspirin 81 mg Tablet,Chewable 81 mg PO DAILY Discontinued metoprolol succinate 25 mg tablet extended release 24 hr 25 mg PO BID Rx Instructions: ON HOLD nifedipine 30 mg tablet extended release 30 mg PO DAILY Discharge Orders: Discharge Order (Routine); Ordered 02/16/24 Ordered By: Britt Mullen Admission Data Admit Date/Time: 02/07/24 17:26 Attending Provider: Britt Mullen Admit Provider: Segun Rdz Primary Care Provider: Becky Tavarez Other Providers: Segun Rdz; Negrito House Coding Level of Care Code 08900 INP/OBS DISCH >30 MIN Diagnoses Atrial fibrillation with rapid ventricular response I48.91 Ischemic cerebrovascular accident (CVA) I63.9 HTN (hypertension) I10 Effusion, pericardium I31.39 Time Spent (min) 35
--- NOTE | 2024-03-03 08:09 | Operative Report ---
Post Operative Report DATE OF PROCEDURE: 02/15/2024. PREOPERATIVE DIAGNOSES: TBS POSTOPERATIVE DIAGNOSIS: Same PROCEDURE: A dual-chamber rate responsive permanent pacemaker and intracardiac electrogram His bundle recordings, along with a peripheral venogram under fluoroscopic guidance. SURGEON: Danielle Steve DO ASSISTANTS: None. ANESTHESIA: Monitored conscious sedation administered under my supervision by Alicia Graff. Start time 08:12, end time 09:17, a total of 3 mg of Versed and 75 mcg of fentanyl. INTRAVENOUS FLUIDS: 50 mL. CONTRAST: 10 mL. ANTIBIOTICS: 900mg clindamycin ADDITIONAL MEDICATIONS: None BLOOD LOSS: 60 mL. URINE OUTPUT: Not applicable. SPECIMENS: None. FINDINGS: See below. DRAINS: None. COMPLICATIONS: None. CONDITION: Stable. INDICATIONS: This is a 73-year-old female who has a past medical history pAF with RVR despite AVN blockers, s/p watchman at [facility] 01/30/2024 complicated with post op pericardial effusion no tamponade, ischemic CVA with hemorrhagic conversion 11/2023, HTN, HLD, Pre-DM, SIADH, GERD, muscular dystrophy, COPD, Carcinoid syndrome, prior SBO. . He had a recent zio patch that was remarkable for intermittent complete heart block. Based on the monitor the patient was recommended to go to the ER and he was recommended prior to hospital discharge. CONSENT: Consent was obtained prior to the patient going into the electrophysiology lab. The patient was informed of the risks, benefits, and alternatives to the procedure. Risks include, but not limited to, sudden cardiac , cardiac arrhythmias, cerebrovascular accident, myocardial infarction, injury to his blood vessels, chamber of the heart and lung, bleeding and infection. The patient understood these risks and agreed to the procedure as planned. Informed consent was obtained. DESCRIPTION OF PROCEDURE: The patient was brought into electrophysiology lab in a fasting state. She was connected to continuous cardiac monitoring. A timeout was performed to ensure the patient's identity and procedure correctly. She was prepped and draped in the left infraclavicular space in normal surgical standard fashion. Monitored conscious sedation was given throughout the procedure for the patient's comfort level. [place] precautions were maintained throughout the procedure. Prophylactic antibiotics were given prior to incision. A 20 mL of 1% lidocaine and bupivacaine mixture were given in the left deltopectoral groove. An incision was made in the left deltopectoral groove. Blunt dissection was performed down to the pectoralis muscle. Then, using blunt dissection over the pectoralis muscle within the pectoral fascia, a pacemaker pocket was created. Then, a peripheral venogram was performed to identify the axillary vein. Venous axillary access was obtained through a needlestick without any problems; using a micropuncture needle. A guidewire was inserted without any resistance. A 6-Japanese sheath was inserted over the guidewire without any resistance. Dilator was removed and a second guidewire was inserted through the sheath to allow for retained venous access. Then a 9 Japanese sheath was inserted over one of the guidewires. The guidewire and dilator were removed. Then, the [employer] Senior Courtroom Clerk 3D medium sheath was inserted through the 9-Japanese sheath over a Glidewire into the right ventricle. The Glidewire and dilator were removed. Then, the left bundle lead was advanced through the sheath and intracardiac electrogram His bundle recordings were performed when the camera was in WATTS 10. Once I found where the His bundle is, see below for results, I then moved the camera to WATTS 30 and marked where the His bundle was on my fluoroscopy screen. I came down about 2 cm from this in a line that would extend out to the apex and then started coming on pacing. Once I found an area where I had a nice W formed pace complex in my lead V1, I then moved the camera to TELUGU 30. Then the helix was extended into the septum. Then the helix locking tool was placed. Then the lead was screwed further into the septum while pacing by giving slow clockwise turns. The paced complex changed to a nice R' in V1 and the pacing stim to peak QRS in V6 was good. Of note I used a stiffer stylet. I then gave contrast through the sheath to see how far the lead was into the septum and then I slit the [employer] Senior Courtroom Clerk 3D medium sheath under fluoroscopic guidance and left the 9-Japanese sheath in while I positioned the right atrial lead. A 6-Japanese sheath was inserted over the retained guidewire, the guidewire and dilator removed. The right atrial lead was then advanced into right atrium and positioned into right atrial appendage under fluoroscopic guidance. There was adequate pacing and sensing thresholds and no diaphragmatic stimulation with high output pacing. The 6-Japanese sheath was peeled away and the lead was fixated to the pectoralis muscle using 0 silk suture. The 9-Japanese sheath around the left bundle lead was peeled away and the lead was fixated to pectoralis muscle using 0 silk suture. The pocket was flushed with copious amounts of vancomycin and saline wash and inspected for hemostasis. The leads were then attached to the pulse generator making sure the pins were in appropriate position, passed set screws, and set screws were all tightened. Pulse generator was then placed in the pocket, making sure the leads were lying flat beneath the device. The incision was closed in a 3-layer fashion using 2-0 Vicryl interrupted suture, followed by 3-0 Vicryl interrupted suture, followed by 4-0 Monocryl running stitch. Then a primaseal dressing was placed EQUIPMENT: 1. Pulse generator is a [employer]appit MRI Model Number [id number] SN: [id number]. 2. Right atrial lead, You SoftwareM Tendril STS [id number] SN: [id number] 3. Left bundle lead, You SoftwareM Tendril STS [id number] SN: [id number] INTRAPROCEDURAL FINDINGS: 1. Intracardiac electrogram His bundle recordings, AH is 75 milliseconds, HV is 46 milliseconds. 2. Right atrial lead, P waves 3.3 millivolts, impedance 568 ohms, threshold 0.7 volts at 0.4 milliseconds. 3. Left bundle lead, R waves 6 millivolts, impedance 774 ohms, threshold 1.2 volts at 0.4 milliseconds. FINAL MEASUREMENTS THROUGH THE DEVICE: 1. Right atrial lead, P waves 5 millivolts, impedance 650 ohms, threshold 0.5 volt at 0.4 milliseconds. 2. Left bundle lead, R waves >12 millivolts, impedance 750 ohms, threshold 0.75 volts at 0.4 milliseconds. FINAL PARAMETERS: DDDR 60/120, right atrial amplitude 3.5 volts, pulse width 0.4 milliseconds, sensitivity 0.5 millivolts. Left bundle lead amplitude 3.5 volts, pulse width 0.4 milliseconds, sensitivity 2 millivolts. IMPRESSION: Successful dual chamber rate responsive permanent pacemaker under fluoroscopic guidance along with peripheral venogram and intracardiac electrogram His bundle recordings, all under fluoroscopic guidance secondary to TBS PLAN: Monitor the patient post-procedure. A 12-lead ECG, chest x-ray. She is not to lift the left elbow or left shoulder for 1 month. She cannot lift more than 10 pounds with the left arm for 2 weeks. She is to keep the dressing on and dry until her wound check next week.
== END 2024-02-16 14:30 | disposition home or self-care (01) | DRG 243 ==
LOC: ED 13:18 → 4W 17:26 → SUATTDRO 17:26 → 4W 18:18

== ENCOUNTER 2024-04-26 10:17 | Inpatient (IN) ==
--- NOTE | 2024-04-26 10:31 | Emergency Department Note ---
Impression & Plan Stroke-like symptoms ED Provider Note Name: YOKO MATTA Age: 74 Sex: Female Arrives Via: Walk-In Informant: Patient, ED Provider: Dheeraj Narvaez MD Chief Complaint: Stroke symptoms Impression: As per impressions above Medical Decision Making: Pleasant 74-year-old female with a history of previous stroke which post TNKase developed hemorrhage. She does have a history of A-fib but is currently has a Watchman device. She is still on aspirin and Plavix daily. She is several other medical comorbidities. Patient arrives for acute onset word finding difficulty and slurred speech. Examination does reveal questionable right hand weakness compared to left but it is still 5 out of 5. No cranial nerve deficit appreciated. Given history of stroke alert called. CT of the head without contrast does not reveal any intracranial hemorrhage and there is no large vessel occlusion on CTA. Laboratory looks all right. Patient is not a TNKase candidate given her significant head bleed just a few months ago. Moderately hypertensive however given concern for underlying stroke will allow some hypertension discussed this with as well as hospitalist. Patient stable no distress. No evidence of seizure-like activity on examination at this time. Hospitalist consulted for further management. Triage/Nursing Notes reviewed by Me External Chart Review by me: I reviewed inpatient discharge summary notes from November 10, 2023 describing patient's previous stroke and then hemorrhagic conversion. Differential:Infection, dehydration, metabolic abnormality, hypo/hyperglycemia, electrolyte disturbance, anemia, hypoxia, cardiac sources, intracerebral event, toxicologic, neurologic, as well as other pathologies. Vital Signs: reviewed and remarkable for moderate hypertension Labs:ED labs Reviewed by me and remarkable for no significant abnormalities Interventions: Benadryl 50 mg IV, Solu-Medrol 125 mg IV. These medications were necessary as patient has known hives to IV contrast and was getting emergent CT scan with IV dye Imaging:CT of the head without contrast as per my informal interpretation reveals no intracranial hemorrhage or mass effect. Confirmed the radiologist. CT angiography of the head and neck reveals no acute change from previous CT as per radiologist EKG:As per my interpretation. Indication strokelike symptoms. Sinus tach versus atrial sensed ventricular paced at 110 bpm and a QTc of 510. There is no ischemia there are questionable PACs. Compared to January 10, 2024 there is no acute change other than rate increase Cardiac/Tele Monitoring: Cardiac Monitoring: An Order was placed for continuous cardiac monitoring. The monitor shows a rate of 80 with a normal sinus rhythm. Consults:Dr Laura HUERTAS Hospitalist Plan: Disposition:Hospitalization. Condition: Good History of Present Illness: 74-year-old female arrives for evaluation of difficulty speaking. Patient's had been at the store for about 1/2-hour when he returned around 930 this morning. When he went to talk to his she seemed to be normal and then almost immediately thereafter started having difficulty speaking. Since then unable to form sentences or say which she needs to. No noted weakness or focal deficits appreciated. Arrives to the ER via private vehicle for further evaluation. Patient notes a mild headache. She denies any weakness or falls or injuries. No other complaints. Patient with a history of stroke status post TNKase at this facility in November 2023. This resulted in improvement of stroke symptoms however did develop intracranial hemorrhage. Patient has a history of paroxysmal A-fib states she is currently on aspirin and Plavix. Past Medical History:See Below Home Medications:See Below Allergies:See Below Vitals:Blood Pressure: 154/84, Pulse 80, RR 18, T 36.9C, O2 98% on RA Physical Exam: GENERAL: Patient is well appearing and in no acute distress. HEAD: AT/NC RESPIRATORY: No dyspnea. Clear to auscultation and equal bilaterally. CARDIOVASCULAR: Regular rate and rhythm.No murmur appreciated. GASTROINTESTINAL: Abdomen soft, non-tender, no peritonitis. EXTREMITIES: Normal motion all extremities, no cyanosis, no edema. NEUROLOGIC: Patient is awake looking around room. She has word finding difficulty as well as some slight slurred speech. She has questionable decreased strength of right hand versus left but both are 5 out of 5. She has full 5 out of 5 strength upper extremities. Does have some difficulty lifting bilateral lower legs off the bed but neither focal deficit. SKIN: No rash, no jaundice, no diaphoresis. PSYCH: Appropriate GCS: 15 ED Course: Times/Reassessments: Multiple repeat evaluations does show increasing hypertension. Will allow to ride for the moment given concern for underlying stroke pathology. Critical Care: I have personally spent 35 minutes of critical care time in the direct management of this patient. Acute strokelike symptoms with stroke alert called and consideration of TNKase and evaluation for possible thrombectomy as patient still within window. This was a life/limb threatening event. This 35 minutes is in excess of all separately billable procedures. Dheeraj Narvaez MD Past Med/Surg History Problem List (Updated 04/27/24 @ 08:20 by Dheeraj Narvaez MD) Stroke-like symptoms (Acute) Osteoporosis Presence of Watchman left atrial appendage closure device Paroxysmal atrial fibrillation Effusion, pericardium (Acute) Atrial fibrillation with rapid ventricular response (Acute) CVA (cerebral vascular accident) GERD (gastroesophageal reflux disease) Hyperlipidemia Ischemic cerebrovascular accident (CVA) FSH (facioscapulohumeral muscular dystrophy) COPD (chronic obstructive pulmonary disease) SIADH (syndrome of inappropriate ADH production) HTN (hypertension) Prediabetes (Chronic) Dysphagia (Acute) Liver lesion, right lobe (Acute) LVH (left ventricular hypertrophy) Diastolic dysfunction Tremor Carcinoid syndrome Hypoglycemia Obstructive sleep apnea Medical History Subarachnoid hemorrhage Acute intracerebral hemorrhage Shoulder pain, right Former smoker IBS (irritable bowel syndrome) Vitamin D deficiency History of small bowel obstruction (~2013) History of colon polyps History of skin cancer Antibiotic-induced yeast infection Seasonal allergies Lung nodules Adrenal adenoma Carcinoid tumor of colon History of claustrophobia Nasal cavity polyp Mild obstructive sleep apnea Chronic rhinitis Langerhans cell histiocytosis Gastroparesis GERD (gastroesophageal reflux disease) Surgical History History of surgery History of Mohs micrographic surgery for skin cancer History of lung biopsy H/O hysterectomy with oophorectomy S/P thoracotomy Hx of exploratory laparotomy S/P appendectomy H/O: hysterectomy Family History Father Myocardial infarction Hypertension Mother Congestive heart failure Hypertension Grandfather (Paternal) Myocardial infarction Grandfather (Maternal) Myocardial infarction Grandmother Colorectal cancer Other Atrial fibrillation Family history of diabetes mellitus Social History Smoking Status: Former smoker Tobacco Type: Cigarettes Age Started Using Tobacco: 16; Age Quit Using Tobacco: 63; packs per day: 0.75; Second Hand Exposure: No; Do You Dip or Chew Tobacco: No; Tobacco Cessation Education Requested by Patient: No Hx Alcohol Use: Yes Alcohol type: wine Hx Substance Use: No Preferred Language: Divehi Communication Ability: Effective Environmental Lawyer Required: Voice Beliefs That Will Affect Care: Confucianism marital status: Current Living Situation: Spouse current occupational status: retired Feels Safe at Home: Yes Safety Concerns: Feels Safe At This Time Seatbelt Use: always Sunscreen Use: Yes Assistive Devices: CPAP and Glasses Allergies Allergies Allergy/AdvReac Type Severity Reaction Status Date / Time Iodinated Contrast Media Allergy Intermediate Hives Verified 04/26/24 13:07 mold Allergy Intermediate SNEEZING/CO Verified 04/26/24 13:07 NGESTION moxifloxacin [From Avelox] Allergy Intermediate ITCHING/YEAST Verified 04/26/24 13:07 INFECTION Tetracyclines Allergy Intermediate ? ITCH ALL Verified 04/26/24 13:07 OVER, PT NOT SURE adhesive Allergy Mild ITCHY RASH Verified 04/26/24 13:07 Penicillins Allergy Rash Verified 04/26/24 13:07 Sulfa (Sulfonamide Allergy Swelling Verified 04/26/24 13:07 Antibiotics) of Lip/Tongue/Throat amlodipine AdvReac Intermediate FATIGUE/CON Verified 04/26/24 13:07 STIPATION cefuroxime AdvReac Intermediate CAUSED C. Verified 04/26/24 13:07 DIFF INFECTION Home Meds Home Medications Medication Instructions Recorded Confirmed acetaminophen 500 mg tablet 500 mg PO Q6H PRN Pain 01/30/19 04/26/24 (Tylenol Extra Strength) cetirizine 10 mg capsule (Zyrtec) 10 mg PO DAILY PRN Allergy Symptoms 09/10/19 04/26/24 fluticasone propionate 50 2 spray intranasal DAILY PRN 04/13/22 04/26/24 mcg/actuation nasal Allergy Symptoms spray,suspension (Flonase Allergy Relief) clopidogrel 75 mg tablet 75 mg PO QAM 09/12/22 04/26/24 metoclopramide HCl 10 mg tablet 10 mg PO TID 10/04/22 04/26/24 denosumab 60 mg/mL subcutaneous 60 mg subcut Q6MO 02/07/23 04/26/24 syringe (Prolia) aspirin 81 mg chewable tablet 81 mg PO DAILY 02/07/24 04/26/24 levetiracetam 500 mg tablet 500 mg PO BID 02/07/24 04/26/24 (Keppra) losartan 50 mg tablet 50 mg PO BID 02/07/24 04/26/24 multivitamin 1 tab PO QAM 02/07/24 04/26/24 tramadol 50 mg tablet 50 mg PO Q4H PRN Pain 02/07/24 04/26/24 folic acid 1 mg tablet 1 mg PO BID 04/26/24 04/26/24 hydralazine 50 mg tablet 50 mg PO TID 04/26/24 04/26/24 Previous Rx's Medication Instructions Recorded albuterol sulfate 90 mcg/actuation 2 puff inhalation Q4H PRN 10/25/22 aerosol inhaler (Ventolin HFA) Shortness Of Breath #3 Inhalers esomeprazole magnesium 40 mg 40 mg PO QPM #90 caps 03/12/23 capsule,delayed release fluticasone fur. 100 mcg-umeclid 1 inh inhalation DAILY #3 Inhalers 12/25/23 62.5 mcg-vilant 25 mcg inhalat.powder (Trelegy Ellipta) Results & Data (ED) Vital Signs Vital Signs - 24 hr 04/26/24 10:21 04/26/24 10:44 04/26/24 10:44 Temperature 36.4 C L Temperature Source Oral Pulse Rate 97 H Respiratory Rate 20 Respiratory Effort / Characteristics Non-Labored Spontaneous Non-Labored Respiratory Depth Normal Normal Respiratory Pattern Regular Blood Pressure 153/92 H Blood Pressure [Right Arm] Blood Pressure Mean 112 Blood Pressure Mean [Right Arm] Pulse Oximetry 95 97 Oxygen Delivery Method Room Air Room Air Sepsis Recent Fever Within 48 Hours No Sepsis New/Unexplained Change in Mental Status N/A Sepsis Action Taken by Nursing No Action Required 04/26/24 10:51 04/26/24 11:00 04/26/24 11:15 Temperature Temperature Source Pulse Rate 94 H Respiratory Rate Respiratory Effort / Characteristics Respiratory Depth Respiratory Pattern Blood Pressure Blood Pressure [Right Arm] 172/86 H 180/108 H Blood Pressure Mean Blood Pressure Mean [Right Arm] 114 132 Pulse Oximetry Oxygen Delivery Method Sepsis Recent Fever Within 48 Hours Sepsis New/Unexplained Change in Mental Status Sepsis Action Taken by Nursing 04/26/24 11:23 Temperature Temperature Source Pulse Rate 87 Respiratory Rate 24 Respiratory Effort / Characteristics Respiratory Depth Respiratory Pattern Blood Pressure 158/104 H Blood Pressure [Right Arm] Blood Pressure Mean 127 Blood Pressure Mean [Right Arm] Pulse Oximetry 96 Oxygen Delivery Method Room Air Sepsis Recent Fever Within 48 Hours Sepsis New/Unexplained Change in Mental Status Sepsis Action Taken by Nursing Laboratory Data 04/27/24 06:21 04/27/24 06:21 Lab Results 04/26/24 04/26/24 04/26/24 Range/Units 10:25 10:34 10:38 WBC 10.52 (4.8-10.8) K/ul RBC 4.79 (4.20-5.40) M/uL Hgb 13.7 (12.0-16.0) g/dl POC Hgb 14.6 (12.0-16.0) g/dl Hct 41.3 (37.0-47.0) % POC Hct 43 (37-47) % MCV 86.2 (80.0-100.0) fL MCH 28.6 (25.0-34.0) pg MCHC 33.2 (32.0-36.0) g/dL RDW Std Deviation 40.6 (36.4-46.3) fL RDW Coeff of Lion 12.9 (11.5-14.5) % Plt Count 374 (130-400) K/uL MPV 9.5 (9.4-12.4) fL Immature Gran % (Auto) 0.4 % Neut % (Auto) 83.7 % Lymph % (Auto) 8.7 % [place] % (Auto) 6.7 % Eos % (Auto) 0.3 % Baso % (Auto) 0.2 % Neut # (Auto) 8.80 H (1.40-6.50) K/uL Lymph # (Auto) 0.92 L (1.20-3.40) K/uL [place] # (Auto) 0.71 H (0.11-0.59) K/uL Eos # (Auto) 0.03 (0.00-0.50) K/uL Baso # (Auto) 0.02 (0.00-0.20) K/uL Immature Gran # (Auto) 0.04 (0.01-0.20) K/uL PT 11.4 (9.0-12.0) Seconds INR 1.1 (0.9-1.1) APTT 30 (21-31) Seconds PTT Ratio 1.1 POC Sodium 135 (135-144) mmol/L Sodium 135 L (136-145) mmol/L POC Potassium 4.0 (3.3-5.0) mmol/L Potassium 4.0 (3.5-5.1) mmol/L POC Chloride 103 (101-112) mmol/L Chloride 102 (98-107) mmol/L Carbon Dioxide 22 (21-32) mmol/L POC Total CO2 21 L (24-31) mmol/L Anion Gap 11 (3-11) POC Anion Gap 16.0 (16-25) mmol/L POC BUN 20 H (7-18) mg/dl BUN 21 (6-23) mg/dl Creatinine 0.64 (0.6-1.2) mg/dl POC Creatinine 0.6 (0.6-1.3) mg/dl Est Cr Clr Drug Dosing 66.6 ml/min Est GFR ( Amer) 101.9 ml/min Est GFR (Non-Af Amer) 87.9 ml/min BUN/Creatinine Ratio 32.8 H (10-20) Glucose 102 H (70-99(Fasting)) mg/dl POC Glucose 112 H (70-99) mg/dl POC Glucose (other) 105 H (70-99) mg/dl Calcium 10.4 H (8.6-10.3) mg/dl POC Ioniz Calcium Leo 1.24 (1.12-1.32) mmol/l Magnesium 1.7 (1.7-2.4) mg/dl Total Bilirubin 0.5 (0.2-1.0) mg/dl AST 22 (13-39) U/L ALT 23 (7-52) U/L Alkaline Phosphatase 68 (34-104) U/L Troponin I High Sens 17.2 H (0-14) pg/ml Total Protein 7.7 (6.0-8.3) gm/dl Albumin 4.5 (3.4-5.0) gm/dl Globulin 3.2 (2.5-4.0) gm/dl Albumin/Globulin Ratio 1.4 (0.9-2) Blood Type O Positive Antibody Screen NEGATIVE Administered Medications Acetaminophen (Acetaminophen 325 Mg Tab) 650 mg PO Q4H PRN PRN Reason: Pain of Fever Stop: 05/26/24 16:30 Last Admin: 04/26/24 20:49 Dose: 650 mg Documented By: Admin: 04/26/24 16:46 Dose: 650 mg Documented By: DLN Ruano Syrup (Ruano Syrup 5 Ml Udp) 5 ml PO DAILY DOREEN Stop: 05/06/24 17:14 Last Admin: 04/26/24 18:05 Dose: 5 ml Documented By: MARTITA Enoxaparin Sodium (Enoxaparin Inj 40 Mg/0.4 Ml Syr) 40 mg SQ QPM DOREEN Stop: 05/26/24 20:59 Last Admin: 04/26/24 21:44 Dose: 40 mg Documented By: DEANNE Folic Acid (Folic Acid 1 Mg Tab) 1 mg PO BID DOREEN Stop: 05/26/24 20:59 Last Admin: 04/26/24 20:43 Dose: 1 mg Documented By: DEANNE Cefepime HCl 2,000 mg/ Syringe 20 mls @ 5 mls/min IV Q8H DOREEN; Protocol Stop: 05/01/24 17:59 Last Admin: 04/27/24 02:52 Dose: 5 mls/min Documented By: Admin: 04/26/24 18:05 Dose: 5 mls/min Documented By: MARTITA Levetiracetam (Levetiracetam 500 Mg Tab) 500 mg PO BID DOREEN Stop: 05/26/24 20:59 Last Admin: 04/26/24 20:43 Dose: 500 mg Documented By: DEANNE Metoclopramide HCl (Metoclopramide Hcl 10 Mg Tablet) 10 mg PO TID DOREEN Stop: 05/26/24 14:25 Last Admin: 04/26/24 20:44 Dose: 10 mg Documented By: Admin: 04/26/24 15:49 Dose: Not Given Documented By: MARTITA Pantoprazole Sodium (Pantoprazole 40 Mg Tab) 40 mg PO QPM DOREEN Stop: 05/26/24 20:59 Last Admin: 04/26/24 20:43 Dose: 40 mg Documented By: DEANNE Vancomycin HCl (Vancomycin Hcl 125 Mg/2.5ml Soln) 125 mg PO QAM DOREEN Stop: 05/06/24 17:14 Last Admin: 04/26/24 18:05 Dose: 125 mg Documented By: MARTITA Discontinued Medications Acetaminophen (Acetaminophen 500 Mg Tab) 1,000 mg PO NOW STA Stop: 04/26/24 12:24 Last Admin: 04/26/24 13:02 Dose: 1,000 mg Documented By: MMG Diphenhydramine HCl (Diphenhydramine 50 Mg/Ml Vial) 50 mg IV NOW STA Stop: 04/26/24 10:28 Last Admin: 04/26/24 10:32 Dose: 50 mg Documented By: JUAN C Lactated Ringer's (Lr) 1,000 mls @ 100 mls/hr IV .Q10H DOREEN Stop: 04/27/24 00:25 Last Infusion: 04/27/24 03:00 Dose: Infused Documented By: Admin: 04/26/24 15:23 Dose: 100 mls/hr Documented By: MARTITA Ioversol (Optiray 320 125ml) 120 ml IV ONCE ONE Stop: 04/26/24 10:40 Last Admin: 04/26/24 10:40 Dose: 120 ml Documented By: SISSY Methylprednisolone (Methylprednisolone 125 Mg/2 Ml Vial) 125 mg IV NOW ONE Stop: 04/26/24 10:28 Last Admin: 04/26/24 10:32 Dose: 125 mg Documented By: JUAN C Discharge Plan Visit Data Chief Complaint: Confusion Stated Complaint: stroke ED Provider: Dheeraj Narvaez Discharge Problem: Stroke-like symptoms Patient Disposition: Admitted As Inpatient Discharge Instructions Interventions: ED Discharge Assessment Last Done: 04/26/24 13:16
[2024-04-26] MEDS: diphenhydrAMINE 50 MG/ML VIAL IV STA (10:32)
[2024-04-26] MEDS: methylPREDNISolone 125 MG/2 ML VIAL IV ONE (10:32)
[2024-04-26] MEDS: OPTIRAY 320 125ml IV ONE (10:40)
[2024-04-26 10:50] LABS: iSTAT Creatinine 0.6 mg/dl (0.6-1.3); iSTAT Hemoglobin 14.6 g/dl (12.0-16.0); iSTAT Ionized Calcium 1.24 mmol/l (1.12-1.32)
--- NOTE | 2024-04-26 10:52 | CT Scan Report ---
CT head/brain wo con CLINICAL HISTORY: 74 years-old Female with neuro deficit, acute stroke suspected. Acute stroke like symptoms TECHNIQUE: Multiple axial CT images of the head were obtained without contrast. A dose lowering tech nique was utilized adhering to the principles of ALARA. CT DOSE: 1437.3 mGy.cm COMPARISON: 02/07/2024 FINDINGS: No acute intracranial hemorrhage, midline shift, intracranial mass, hydrocephalus, territorial ischem ia or abnormal extra-axial collection. Involutional changes with chronic microvascular ischemic disea se. Chronic left parieto-occipital infarct with encephalomalacia. Ex vacuo ventriculomegaly of the at chuck and posterior horn left lateral ventricle. Additional chronic lacunar infarcts in the right front al lobe haji radiata and lentiform nucleus. Cerebral vascular calcifications. The calvarium is intact. The paranasal sinuses, mastoid air cells, and middle ear cavities are clear . IMPRESSION: 1. No acute intracranial abnormality identified. 2. Chronic left parieto-occipital infarct. 3. Involutional changes with chronic microvascular ischemic disease. ACT 112: Negative or not required by law. The above report was generated using voice recognition software. It may contain grammatical, syntax o r spelling errors. Electronically signed by: Maxwell Romero M.D. 04/26/2024 10:50 AM
[2024-04-26 10:53] LABS: Basophils # (auto) 0.02 K/uL (0.00-0.20); Basophils % (auto) 0.2 %; Eosinophils # (auto) 0.03 K/uL (0.00-0.50); Eosinophils % (auto) 0.3 %; Hematocrit (blood only) 41.3 % (37.0-47.0); Hemoglobin 13.7 g/dl (12.0-16.0); Immature Granulocytes # (auto) 0.04 K/uL (0.01-0.20); Immature Granulocytes % (auto) 0.4 %; Lymphocytes # (auto) 0.92 K/uL (1.20-3.40); Lymphocytes % (auto) 8.7 %; Mean Corpuscular Hemoglobin 28.6 pg (25.0-34.0); Mean Corpuscular Hgb Conc 33.2 g/dL (32.0-36.0); Mean Corpuscular Volume 86.2 fL (80.0-100.0); Mean Platelet Volume 9.5 fL (9.4-12.4); Monocytes # (auto) 0.71 K/uL (0.11-0.59); Monocytes % (auto) 6.7 %; Neutrophils % (auto) 83.7 %; Platelet Count 374 K/uL (130-400); RDW Coefficient of Variation 12.9 % (11.5-14.5); RDW Standard Deviation 40.6 fL (36.4-46.3); Red Blood Count 4.79 M/uL (4.20-5.40); White Blood Count 10.52 K/ul (4.8-10.8)
--- NOTE | 2024-04-26 11:07 | CT Scan Report ---
CT angio head w con, CT angio neck with con CLINICAL HISTORY: 74 years-old Female with neuro deficit, acute stroke suspected. Acute stroke lik e symptoms COMPARISON STUDY: Head CT of same day and also 02/07/2024, CTA head and neck for 524 TECHNIQUE: Follow ing the IV administration of 120 cc of Optiray, CT angiogram of the head and neck was performed. Imag es are reviewed in the axial, sagittal, and coronal planes. 3-D MIPS images are created and assessed. IV contrast was administered without complication. All measurements were obtained according to NASCE T criteria. A dose lowering technique was utilized adhering to the principles of ALARA. FINDINGS: Atherosclerosis of the thoracic aortic arch. Patency of the innominate and in the subclavian arteries . Patent common carotid arteries. There is moderate atherosclerotic plaque of the carotid bulbs. Ther e is no significant stenosis of the internal carotid arteries. The vertebral arteries are codominant and widely patent. The anterior and middle cerebral arteries are also patent. No aneurysm, dissection , high-grade stenosis or arterial occlusion identified. Pulmonary emphysema. Intralobular septal thickening without thorax. Prior bilateral lens repair. Mode rate mucoperiosteal thickening of the right maxillary sinus with small fluid level. Mild left maxilla ry polypoid mucosal thickening. Degenerative changes of the cervical spine. Chronic left cerebral inf arct with encephalomalacia. Chronic lacunar infarcts in the right frontal lobe haji radiata and marco tiform nucleus. IMPRESSION: Unremarkable CTA of the head and neck. ACT 112: Negative or not required by law. The above report was generated using voice recognition software. It may contain grammatical, syntax o r spelling errors. Electronically signed by: Maxwell Romero M.D. 04/26/2024 11:05 AM
[2024-04-26 11:08] LABS: INR 1.1 (0.9-1.1); Partial Thromboplastin Ratio 1.1; Partial Thromboplastin Time 30 Seconds (21-31); Prothrombin Time 11.4 Seconds (9.0-12.0)
[2024-04-26 11:09] LABS: Albumin Globulin Ratio 1.4 (0.9-2); Albumin Level 4.5 gm/dl (3.4-5.0); BUN Creatinine Ratio 32.8 (10-20); Bilirubin,Total 0.5 mg/dl (0.2-1.0); Calcium 10.4 mg/dl (8.6-10.3); Creatinine Clr Calc Pharmacy 66.6 ml/min; Est GFR (African American) 101.9 ml/min; Est GFR (Non-African American) 87.9 ml/min; Globulin 3.2 gm/dl (2.5-4.0); Magnesium 1.7 mg/dl (1.7-2.4); Total Protein 7.7 gm/dl (6.0-8.3)
[2024-04-26 11:15] LABS: Troponin I High Sensitivity 17.2 pg/ml (0-14)
--- NOTE | 2024-04-26 11:51 | History & Physical Report ---
Date of Service April 26, 2024 Assessment & Plan (1) Stroke-like symptoms: Plan: Significant expressive dysphagia with mild RUE weakness Concerning for acute CVA although recrudesce of prior CVA also possible (CXR and UA ordered). Not TNK candidate due to prior hemorrhagic stroke following TNK in November Lipid panel and HbA1C with AM labs TTE in AM Brain MRI without contrast delayed until Sunday due to pacemaker Continue aspirin and clopidogrel Unclear why she is not on a statin - neurology notes she was on Crestor many years ago however got leg cramps while taking this. Possibly not on statin due to suspected cardioembolic etiology without significant cerebral artery stenosis. Allow permissive hypertension for 24-48 hours, holding her usual losartan and hydralazine. Labetalol PRN for sBP > 220 or dBP > 120 Consult neurology (2) Paroxysmal atrial fibrillation: Plan: S/p Watchman in January 2024 complicated with postop pericardial effusion. Not on anticoagulation. S/p RF ablation of the AV node following pacemaker insertion in February 2024 Currently ventricularly paced rhythm (3) Presence of Watchman left atrial appendage closure device: (4) Obstructive sleep apnea: Plan: CPAP HS (5) FSH (facioscapulohumeral muscular dystrophy): Plan: Mild baseline generalized weakness due to this Plan VTE prophylaxis - Lovenox 40 mg SQ daily Diet - heart healthy Disposition - observation to PCU Admission and Anticipated Discharge Date Admission Date: April 26, 2024 History of Present Illness Chief Complaint: Expressive dysphasia Right hand weakness Primary Care Provider: Bceky Tavarez MD Danielle Pulliam is a 74 year old female who presents to the ER with expressive dysphasia and right hand weakness. Unable to get any significant history from the patient due to her expressive dysphagia. at bedside reports her symptoms started around 9:30 AM this morning while he was out. On returning he noticed the patient appeared more confused and was unable to say co rrect words. She was able to articulate that she was having right upper extremity weakness. She was hospitalized at [facility] from November 08 to 2023 for acute right thalamic and left paramedian frontal lobe ischemic stroke s/p TNK complicated by left parieto-occipital intraparenchymal hemorrhage and left occipital subdural hematoma. Her symptoms at that time was sudden onset weakness, sensory changes and difficulty in speech. Suspected to be cardioembolic from paroxysmal A-fib/flutter without being on anticoagulation. She has residual deficit on her left side hand and leg from her prior stroke. Allergies Allergy/AdvReac Type Severity Reaction Status Date / Time Iodinated Contrast Media Allergy Intermediate Hives Verified 04/26/24 13:07 mold Allergy Intermediate SNEEZING/CO Verified 04/26/24 13:07 NGESTION moxifloxacin [From Avelox] Allergy Intermediate ITCHING/YEAST Verified 04/26/24 13:07 INFECTION Tetracyclines Allergy Intermediate ? ITCH ALL Verified 04/26/24 13:07 OVER, PT NOT SURE adhesive Allergy Mild ITCHY RASH Verified 04/26/24 13:07 Penicillins Allergy Rash Verified 04/26/24 13:07 Sulfa (Sulfonamide Allergy Swelling Verified 04/26/24 13:07 Antibiotics) of Lip/Tongue/Throat amlodipine AdvReac Intermediate FATIGUE/CON Verified 04/26/24 13:07 STIPATION cefuroxime AdvReac Intermediate CAUSED C. Verified 04/26/24 13:07 DIFF INFECTION Home Medications Medication Instructions Recorded Confirmed Type acetaminophen 500 mg tablet 500 mg PO Q6H PRN Pain 01/30/19 04/26/24 History (Tylenol Extra Strength) cetirizine 10 mg capsule (Zyrtec) 10 mg PO DAILY PRN Allergy Symptoms 09/10/19 04/26/24 History fluticasone propionate 50 2 spray intranasal DAILY PRN 04/13/22 04/26/24 History mcg/actuation nasal Allergy Symptoms spray,suspension (Flonase Allergy Relief) clopidogrel 75 mg tablet 75 mg PO QAM 09/12/22 04/26/24 History metoclopramide HCl 10 mg tablet 10 mg PO TID 10/04/22 04/26/24 History albuterol sulfate 90 mcg/actuation 2 puff inhalation Q4H PRN 10/25/22 04/26/24 Rx aerosol inhaler (Ventolin HFA) Shortness Of Breath #3 Inhalers denosumab 60 mg/mL subcutaneous 60 mg subcut Q6MO 02/07/23 04/26/24 History syringe (Prolia) esomeprazole magnesium 40 mg 40 mg PO QPM #90 caps 03/12/23 04/26/24 Rx capsule,delayed release fluticasone fur. 100 mcg-umeclid 1 inh inhalation DAILY #3 Inhalers 12/25/23 Rx 62.5 mcg-vilant 25 mcg inhalat.powder (Trelegy Ellipta) aspirin 81 mg chewable tablet 81 mg PO DAILY 02/07/24 04/26/24 History levetiracetam 500 mg tablet 500 mg PO BID 02/07/24 04/26/24 History (Keppra) losartan 50 mg tablet 50 mg PO BID 02/07/24 04/26/24 History multivitamin 1 tab PO QAM 02/07/24 04/26/24 History tramadol 50 mg tablet 50 mg PO Q4H PRN Pain 02/07/24 04/26/24 History folic acid 1 mg tablet 1 mg PO BID 04/26/24 04/26/24 History hydralazine 50 mg tablet 50 mg PO TID 04/26/24 04/26/24 History Past Med/Surg History Problem List (Updated 04/26/24 @ 12:46 by Jens Sanchez MD) Stroke-like symptoms Osteoporosis Presence of Watchman left atrial appendage closure device Paroxysmal atrial fibrillation Effusion, pericardium (Acute) Atrial fibrillation with rapid ventricular response (Acute) CVA (cerebral vascular accident) GERD (gastroesophageal reflux disease) Hyperlipidemia Ischemic cerebrovascular accident (CVA) FSH (facioscapulohumeral muscular dystrophy) COPD (chronic obstructive pulmonary disease) SIADH (syndrome of inappropriate ADH production) HTN (hypertension) Prediabetes (Chronic) Dysphagia (Acute) Liver lesion, right lobe (Acute) LVH (left ventricular hypertrophy) Diastolic dysfunction Tremor Carcinoid syndrome Hypoglycemia Obstructive sleep apnea Medical History Subarachnoid hemorrhage Acute intracerebral hemorrhage Shoulder pain, right Former smoker IBS (irritable bowel syndrome) Vitamin D deficiency History of small bowel obstruction (~2013) History of colon polyps History of skin cancer Antibiotic-induced yeast infection Seasonal allergies Lung nodules Adrenal adenoma Carcinoid tumor of colon History of claustrophobia Nasal cavity polyp Mild obstructive sleep apnea Chronic rhinitis Langerhans cell histiocytosis Gastroparesis GERD (gastroesophageal reflux disease) Surgical History History of surgery History of Mohs micrographic surgery for skin cancer History of lung biopsy H/O hysterectomy with oophorectomy S/P thoracotomy Hx of exploratory laparotomy S/P appendectomy H/O: hysterectomy Family History Father Myocardial infarction Hypertension Mother Congestive heart failure Hypertension Grandfather (Paternal) Myocardial infarction Grandfather (Maternal) Myocardial infarction Grandmother Colorectal cancer Other Atrial fibrillation Family history of diabetes mellitus Social History Smoking Status: Former smoker Tobacco Type: Cigarettes Age Started Using Tobacco: 16; Age Quit Using Tobacco: 63; packs per day: 0.75; Second Hand Exposure: No; Do You Dip or Chew Tobacco: No; Tobacco Cessation Education Requested by Patient: No Hx Alcohol Use: Yes Alcohol type: wine Hx Substance Use: No Preferred Language: Persian Communication Ability: Effective Laboratory Tech Required: Voice Beliefs That Will Affect Care: Jew marital status: Current Living Situation: Spouse current occupational status: retired Feels Safe at Home: Yes Safety Concerns: Feels Safe At This Time Seatbelt Use: always Sunscreen Use: Yes Assistive Devices: CPAP and Glasses Review of Systems Review of Systems: All systems reviewed & are unremarkable except as noted in HPI & below Physical Exam Constitutional: WD/WN, vitals as above Eyes: PERRL, conjunctivae normal, anicteric sclerae EOM intact bilaterally ENMT: external ear and nose normal, oropharynx normal Respiratory: normal respiratory effort, lungs clear to auscultation Cardiovascular: Rate/Rhythm: regular rate and + irregularly irregular Heart Sounds: no murmur Extremities: normal capillary refill; no calf tenderness and no pedal edema Gastrointestinal (Abdomen): normal bowel sounds, soft, nontender, no hepatosplenomegaly Musculoskeletal: no cyanosis or clubbing, extremities motor strength 5/5 Skin: no rashes, warm and dry Neurologic: moves all extremities, + focal motor deficit (right UE pronator drift) and awake; not confused Speech / Cognition: + expressive aphasia (say ing the wrong words with word salad but knows she is getting it wrong); no receptive aphasia Motor/Sensory: + pronator drift (right); no tremor and no sensory deficit Psychiatric: Orientation: alert, oriented to person and oriented to place; + not oriented to time (unable to say the right numbers due to dysphasia but likely orientated) Results & Data Results & Data Vital Signs (Past 12 Hours) Vital Signs Temp Pulse Resp BP BP Pulse Ox O2 Del Method 04/26/24 11:23 87 24 158/104 H 96 Room Air 04/26/24 11:15 180/108 H 04/26/24 11:00 172/86 H 04/26/24 10:51 94 H 04/26/24 10:44 97 Room Air 04/26/24 10:21 36.4 C L 97 H 20 153/92 H 95 Room Air Laboratory Results Abnormal lab results 04/26/24 04/26/24 04/26/24 Range/Units 10:25 10:34 10:38 Neut # (Auto) 8.80 H (1.40-6.50) K/uL Lymph # (Auto) 0.92 L (1.20-3.40) K/uL Taney # (Auto) 0.71 H (0.11-0.59) K/uL Sodium 135 L (136-145) mmol/L POC Total CO2 21 L (24-31) mmol/L POC BUN 20 H (7-18) mg/dl BUN/Creatinine Ratio 32.8 H (10-20) Glucose 102 H (70-99(Fasting)) mg/dl POC Glucose 112 H (70-99) mg/dl POC Glucose (other) 105 H (70-99) mg/dl Calcium 10.4 H (8.6-10.3) mg/dl Troponin I High Sens 17.2 H (0-14) pg/ml Diagnostic Findings CT head/brain wo con CLINICAL HISTORY: 74 years-old Female with neuro deficit, acute stroke suspected. Acute stroke like symptoms TECHNIQUE: Multiple axial CT images of the head were obtained without contrast. A dose lowering technique was utilized adhering to the principles of ALARA. CT DOSE: 1437.3 mGy.cm COMPARISON: 02/07/2024 FINDINGS: No acute intracranial hemorrhage, midline shift, intracranial mass, hydrocephalus, territorial ischemia or abnormal extra-axial collection. Involutional changes with chronic microvascular ischemic disease. Chronic left parieto-occipital infarct with encephalomalacia. Ex vacuo ventriculomegaly of the atria and posterior horn left lateral ventricle. Additional chronic lacunar infarcts in the right frontal lobe haji radiata and lentiform nucleus. Cerebral vascular calcifications. The calvarium is intact. The paranasal sinuses, mastoid air cells, and middle ear cavities are clear. IMPRESSION: 1. No acute intracranial abnormality identified. 2. Chronic left parieto-occipital infarct. 3. Involutional changes with chronic microvascular ischemic disease. CT angio head w con, CT angio neck with con CLINICAL HISTORY: 74 years-old Female with neuro deficit, acute stroke suspected. Acute stroke like symptoms COMPARISON STUDY: Head CT of same day and also 02/07/2024, CTA head and neck for 524 TECHNIQUE: Following the IV administration of 120 cc of Optiray, CT angiogram of the head and neck was performed. Images are reviewed in the axial, sagittal, and coronal planes. 3-D MIPS images are created and assessed. IV contrast was administered without complication. All measurements were obtained according to NASCET criteria. A dose lowering technique was utilized adhering to the principles of ALARA. FINDINGS: Atherosclerosis of the thoracic aortic arch. Patency of the innominate and in the subclavian arteries. Patent common carotid arteries. There is moderate atherosclerotic plaque of the carotid bulbs. There is no significant stenosis of the internal carotid arteries. The vertebral arteries are codominant and widely patent. The anterior and middle cerebral arteries are also patent. No aneurysm, dissection, high-grade stenosis or arterial occlusion identified. Pulmonary emphysema. Intralobular septal thickening without thorax. Prior bilateral lens repair. Moderate mucoperiosteal thickening of the right maxillary sinus with small fluid level. Mild left maxillary polypoid mucosal thickening. Degenerative changes of the cervical spine. Chronic left cerebral infarct with encephalomalacia. Chronic lacunar infarcts in the right frontal lobe haji radiata and lentiform nucleus. IMPRESSION: Unremarkable CTA of the head and neck. Medications Administered ER medications given: Diphenhydramine 50 mg IV Solu-Medrol 125 mg IV Acetaminophen 1000 mg p.o. ECG Rate (beats per minute): 104 Findings: + paced rhythm (Atrial sensed, ventricular paced rhythm) Comparison ECG Date: from (March 05, 2024) Change: no significant change Code Status & VTE Plan Code Status Full PG Care Time/CCT Total # of Minutes Spent Total Time Spent with Patient: Total time spent is greater than 50% in coordination of care (as documented) at patient's floor/unit and/or counseling patient: Coding Level of Care Code 73048 INT INP/OBS CARE 3/75MIN Diagnoses Stroke-like symptoms R29.90 Paroxysmal atrial fibrillation I48.0 Presence of Watchman left atrial appendage closure device Z95.818 Obstructive sleep apnea G47.33 FSH (facioscapulohumeral muscular dystrophy) G71.02
[2024-04-26] MEDS: ACETAMINOPHEN 500 MG TAB PO STA (13:02)
[2024-04-26] MEDS ORDERED: LABETALOL HCL IV 5 MG/ML 20ML IV PRN (14:09)
[2024-04-26 14:17] LABS: Appearance Urine Clear (Clear); Bacteria Urine Automated 4+ (None Seen); Bilirubin Urine Negative (Negative); Blood Urine Negative (Negative); Cast Urine Automated 0-2 /lpf (0-2); Color Urine Yellow; Epithelial Cell Urine Auto 0-2 /hpf (0-2); Glucose Urine UA Negative (Negative); Ketones Urine Trace (Negative); Leukocyte Esterase Urine 3+ (Negative); Nitrite Urine Positive (Negative); Protein Urine Negative (Negative); RBC Urine Automated 0-2 /hpf (0-2); Specific Gravity Urine 1.021 (1.000-1.030); Urobilinogen Urine Negative (Negative); WBC Urine Automated 21-50 /hpf (0-5)
[2024-04-26] MEDS ORDERED: PHARMACIST DISCHARGE MED REC CONSULT PRN (14:26)
--- NOTE | 2024-04-26 14:52 | XRay Report ---
XR chest 1V portable HISTORY: 74 years-old Female confusion, ?PNA acute shortness of breath COMPARISON: Chest radiograph 03/07/2024 , CTA chest 02/07/2024 TECHNIQUE: AP view the chest FINDINGS: Cardiac silhouette is enlarged. Left subclavian pacer/AICD. Left atrial occlusion device. Biapical pl eural parenchymal scarring redemonstrated. Pulmonary emphysema. No pneumothorax, pleural effusion or pulmonary edema. Right apical nodular foci better seen on the CTA of the neck. Bones appear grossly i ntact. IMPRESSION: 1. Emphysema without acute processes of the chest. 2. Right apical nodular foci may represent scarring versus pulmonary nodules. Three-month follow-up c hest CT recommended. ACT 112: Negative or not required by law. The above report was generated using voice recognition software. It may contain grammatical, syntax o r spelling errors. Electronically signed by: Maxwell Romero M.D. 04/26/2024 2:50 PM
[2024-04-26] MEDS: LACTATED RINGER'S 1,000 ML IV SCH (15:23)
[2024-04-26] MEDS: METOCLOPRAMIDE HCL 10 MG TABLET PO SCH (15:49)
[2024-04-26] MEDS: ACETAMINOPHEN 325 MG TAB PO PRN (16:46)
[2024-04-26] MEDS: VANCOMYCIN HCL 125 MG/2.5ML SOLN PO SCH (18:05)
[2024-04-26] MEDS: CHERRY SYRUP 5 ML UDP PO SCH (18:05)
[2024-04-26] MEDS: CEFEPIME 2,000 MG in SYRINGE 0 ML IV SCH (18:05)
[2024-04-26] MEDS: FOLIC ACID 1 MG TAB PO SCH (20:43)
[2024-04-26] MEDS: levETIRAcetam 500 MG TAB PO SCH (20:43)
[2024-04-26] MEDS: PANTOprazole 40 MG TAB PO SCH (20:43)
[2024-04-26] MEDS: ENOXAPARIN INJ 40 MG/0.4 ML SYR SQ SCH (21:44)
[2024-04-27 06:51] LABS: Basophils # (auto) 0.02 K/uL (0.00-0.20); Basophils % (auto) 0.3 %; Eosinophils # (auto) 0.04 K/uL (0.00-0.50); Eosinophils % (auto) 0.6 %; Hematocrit (blood only) 37.6 % (37.0-47.0); Hemoglobin 12.5 g/dl (12.0-16.0); Immature Granulocytes # (auto) 0.03 K/uL (0.01-0.20); Immature Granulocytes % (auto) 0.4 %; Lymphocytes # (auto) 1.57 K/uL (1.20-3.40); Lymphocytes % (auto) 22.2 %; Mean Corpuscular Hemoglobin 28.2 pg (25.0-34.0); Mean Corpuscular Hgb Conc 33.2 g/dL (32.0-36.0); Mean Corpuscular Volume 84.9 fL (80.0-100.0); Mean Platelet Volume 9.4 fL (9.4-12.4); Monocytes # (auto) 0.69 K/uL (0.11-0.59); Monocytes % (auto) 9.8 %; Neutrophils # (auto) 4.71 K/uL (1.40-6.50); Neutrophils % (auto) 66.7 %; Platelet Count 361 K/uL (130-400); RDW Coefficient of Variation 12.9 % (11.5-14.5); RDW Standard Deviation 40.4 fL (36.4-46.3); Red Blood Count 4.43 M/uL (4.20-5.40); White Blood Count 7.06 K/ul (4.8-10.8)
[2024-04-27 07:12] LABS: BUN Creatinine Ratio 24.7 (10-20); Calcium 9.6 mg/dl (8.6-10.3); Chol HDL Ratio 2.6 (0-5); Creatinine Clr Calc Pharmacy 58.4 ml/min; Est GFR (Non-African American) 81.1 ml/min; Potassium 3.9 mmol/L (3.5-5.1)
[2024-04-27 07:22] LABS: Estimated Average Glucose 105 mg/dl; Hemoglobin A1C 5.3 % (4.5-5.6)
--- NOTE | 2024-04-27 08:07 | Neurology Consultation ---
Date of Consultation April 27, 2024 Assessment & Plan (1) Stroke-like symptoms: History of Present Illness Attending Physician: Yvonne Villa MD History of Present Illness S: pt this morning feeling much better. speech much improved. rt hand weakness resolved. CT head negative. CTA negative. pending mri on sunday after her pacermaker is checked. pt well known to [facility] for her complicated stroke history back in november 2023 with s/p TNKase bleed. chart reviewed. Admission HPI: Danielle Pulliam is a 74 year old female who presents to the ER with expressive dysphasia and right hand weakness. Unable to get any significant history from the patient due to her expressive dysphagia. at bedside reports her symptoms started around 9:30 AM this morning while he was out. On returning he noticed the patient appeared more confused and was unable to say correct words. She was able to articulate that she was having right upper extremity weakness. She was hospitalized at [facility] from November 08 to 2023 for acute right thalamic and left paramedian frontal lobe ischemic stroke s/p TNK complicated by left parieto-occipital intraparenchymal hemorrhage and left occipital subdural hematoma. Her symptoms at that time was sudden onset weakness, sensory changes and difficulty in speech. Suspected to be cardioembolic from paroxysmal A-fib/flutter without being on anticoagulation. She has residual deficit on her left side hand and leg from her prior stroke. Allergies Allergy/AdvReac Type Severity Reaction Status Date / Time Iodinated Contrast Media Allergy Intermediate Hives Verified 04/26/24 13:07 mold Allergy Intermediate SNEEZING/CO Verified 04/26/24 13:07 NGESTION moxifloxacin [From Avelox] Allergy Intermediate ITCHING/YEAST Verified 04/26/24 13:07 INFECTION Tetracyclines Allergy Intermediate ? ITCH ALL Verified 04/26/24 13:07 OVER, PT NOT SURE adhesive Allergy Mild ITCHY RASH Verified 04/26/24 13:07 Penicillins Allergy Rash Verified 04/26/24 13:07 Sulfa (Sulfonamide Allergy Swelling Verified 04/26/24 13:07 Antibiotics) of Lip/Tongue/Throat amlodipine AdvReac Intermediate FATIGUE/CON Verified 04/26/24 13:07 STIPATION cefuroxime AdvReac Intermediate CAUSED C. Verified 04/26/24 13:07 DIFF INFECTION Home Medications Medication Instructions Recorded Confirmed Type acetaminophen 500 mg tablet 500 mg PO Q6H PRN Pain 01/30/19 04/26/24 History (Tylenol Extra Strength) cetirizine 10 mg capsule (Zyrtec) 10 mg PO DAILY PRN Allergy Symptoms 09/10/19 04/26/24 History fluticasone propionate 50 2 spray intranasal DAILY PRN 04/13/22 04/26/24 History mcg/actuation nasal Allergy Symptoms spray,suspension (Flonase Allergy Relief) clopidogrel 75 mg tablet 75 mg PO QAM 09/12/22 04/26/24 History metoclopramide HCl 10 mg tablet 10 mg PO TID 10/04/22 04/26/24 History albuterol sulfate 90 mcg/actuation 2 puff inhalation Q4H PRN 10/25/22 04/26/24 Rx aerosol inhaler (Ventolin HFA) Shortness Of Breath #3 Inhalers denosumab 60 mg/mL subcutaneous 60 mg subcut Q6MO 02/07/23 04/26/24 History syringe (Prolia) esomeprazole magnesium 40 mg 40 mg PO QPM #90 caps 03/12/23 04/26/24 Rx capsule,delayed release fluticasone fur. 100 mcg-umeclid 1 inh inhalation DAILY #3 Inhalers 12/25/23 04/26/24 Rx 62.5 mcg-vilant 25 mcg inhalat.powder (Trelegy Ellipta) aspirin 81 mg chewable tablet 81 mg PO DAILY 02/07/24 04/26/24 History levetiracetam 500 mg tablet 500 mg PO BID 02/07/24 04/26/24 History (Keppra) losartan 50 mg tablet 50 mg PO BID 02/07/24 04/26/24 History multivitamin 1 tab PO QAM 02/07/24 04/26/24 History tramadol 50 mg tablet 50 mg PO Q4H PRN Pain 02/07/24 04/26/24 History folic acid 1 mg tablet 1 mg PO BID 04/26/24 04/26/24 History hydralazine 50 mg tablet 50 mg PO TID 04/26/24 04/26/24 History Patient History Medical History Subarachnoid hemorrhage Acute intracerebral hemorrhage Shoulder pain, right Former smoker IBS (irritable bowel syndrome) Vitamin D deficiency History of small bowel obstruction (~2013) History of colon polyps History of skin cancer Antibiotic-induced yeast infection Seasonal allergies Lung nodules Adrenal adenoma Carcinoid tumor of colon History of claustrophobia Nasal cavity polyp Mild obstructive sleep apnea Chronic rhinitis Langerhans cell histiocytosis Gastroparesis GERD (gastroesophageal reflux disease) Surgical History History of surgery History of Mohs micrographic surgery for skin cancer History of lung biopsy H/O hysterectomy with oophorectomy S/P thoracotomy Hx of exploratory laparotomy S/P appendectomy H/O: hysterectomy Family History Father Myocardial infarction Hypertension Mother Congestive heart failure Hypertension Grandfather (Paternal) Myocardial infarction Grandfather (Maternal) Myocardial infarction Grandmother Colorectal cancer Other Atrial fibrillation Family history of diabetes mellitus Social History Smoking Status: Former smoker Tobacco Type: Cigarettes Age Started Using Tobacco: 16; Age Quit Using Tobacco: 63; packs per day: 0.75; Second Hand Exposure: No; Do You Dip or Chew Tobacco: No; Tobacco Cessation Education Requested by Patient: No Hx Alcohol Use: Yes Alcohol type: wine Hx Substance Use: No Preferred Language: Niuean Communication Ability: Effective Certified Neurodiagnostic Technologist Required: Voice Beliefs That Will Affect Care: Latter-Day marital status: Current Living Situation: Spouse current occupational status: retired Feels Safe at Home: Yes Safety Concerns: Feels Safe At This Time Seatbelt Use: always Sunscreen Use: Yes Assistive Devices: CPAP and Glasses Review of Systems Review of Systems: All systems reviewed & are unremarkable except as noted in Subjective Constitutional: as per Subjective / HPI Eyes: as per Subjective / HPI Ear, Nose, Mouth, Throat: as per Subjective / HPI Respiratory: as per Subjective / HPI Cardiovascular: as per Subjective / HPI Gastrointestinal: as per Subjective / HPI Musculoskeletal: as per Subjective / HPI Integumentary: as per Subjective / HPI Neurologic: as per Subjective / HPI Psychiatric: as per Subjective / HPI Endocrine: as per Subjective / HPI Hematologic / Lymphatic: as per Subjective / HPI Allergy / Immunological: as per Subjective / HPI Exam (Neuro) Physical Exam: HEENT: normocephalic Neuro: Mental: AOx4, fluent speech, normal naming. occasional stuttering. normal comprehension, no apraxia, no L/R confusion, no neglect CN: PERRL, Full EOM, symmetric face, rt homonymous hemianopsia (chronic from prior stroke). midline T/U/P, 5/5 SCM/traps. Motor: No abnormal movements, normal tone and bulk, 5-/5 t/o bilaterally upper. 4+/5 t/o left lower ext (chronic), 5-/5 rt lower ext t/o. Sens: intact to touch b/l grossly Coord: intact FNT b/l DTR: 1+ sym b/l Impression: 74 yo female with transient expressive aphasia and rt hand weakness that is now essentially resolved in setting of paroxysmal atrial fib, prior large left parietal/occipital stroke with hematoma/ICH after TNKase back in november 2023. pt clinically stable and doing well. Pt high risk for recurrent stroke/TIA. Recommendations: 1. Standard stroke work up as planned 2. antiplatelet therapy: continue DAPT. pt has watchmen device and rate controlled so was not on anticoagulation. She is well known to [facility] and decided to continue DAPT rather than anticoagulation due to her prior hx of bleed. 3. Images: MRI brain (stroke protocol) p ending on Sunday after checking the pacermaker, TTE with bubble 4. Permissive Hypertension for next 24-4 8 hrs. Keep SBP goal range less than 200. Avoid hypotension. Do not stop beta-kell if on it. 6. Long-term SBP goal less than 130. 7. Plenty of hydration including IV flui d if possible (use isotonic solution) next 1-2 days. Avoid hypovolemia and hypotension. 8. Initiate DVT prevention therapy. 9. Avoid hypoglycemia, serum glucose goa l during hospitalization: 140-180. 10. Long-term HgA1c goal less than 7. 11. Start statin if not on it and no abs olute contraindication, long-term LDL goal less than 70. 12. Head of bed up 30 degrees if possibl e. 13. Stroke education by nursing and appr opriate staff. 14. Telemetry monitoring. 15. Fall precaution and aspiration preca ution. 16. Consult occupational therapy and sp eech path evaluation. Chart reviewed I have spent more than 50% educating patient about potential diagnosis and neurological evaluation and coordinating care with patient's treatment team. Total time spent (including chart review and coordination of care): 60 min (this includes chart review). Results & Data Vital Signs (Past 12 Hours) Vital Signs Temp Pulse Pulse Resp BP BP Pulse Ox 04/27/24 07:49 36.9 C 69 17 156/84 H 93 04/27/24 03:33 36.7 C 71 17 160/88 H 94 04/26/24 23:21 36.9 C 75 18 152/66 H 95 04/26/24 21:59 103 H O2 Del Method 04/27/24 07:49 Room Air 04/27/24 03:33 CPAP 04/26/24 23:21 CPAP 04/26/24 21:59 PG Care Time/CCT Total # of Minutes Spent Total Time Spent with Patient: Total time spent is greater than 50% in coordination of care (as documented) at patient's floor/unit and/or counseling patient: Coding Level of Care Code 49122 IN/OBS CONSULT LVL 4,60M Diagnoses Stroke-like symptoms R29.90
--- NOTE | 2024-04-27 08:22 | Hospitalist Progress Note ---
Date of Service April 27, 2024 Assessment & Plan (1) Stroke-like symptoms: Plan: Significant expressive dysphagia with mild RUE weakness - improved today given hx of recent stroke in November and TNK with S/p hemorrhagic stroke, pt is not a candidate for thrombolysis. CT head nil acute. Plan: Neuro on onboard C/w aspirin and clopidogrel Allow permissive hypertension for 24-48 hours,( hold losartan and hydralazine). Labetalol PRN for sBP > 220 or dBP > 120 Tele -F/u Bubble Echo -Brain MRI without contrast Sunday(04/28) (2) Paroxysmal atrial fibrillation: Plan: Known hx Never been on anticoagulation per pt Had watchman procedure 2022. Pacemaker insitu Plan: pt on ASA+Plavix. Tele. Plan VTE prophylaxis - Lovenox 40 mg SQ daily Diet - heart healthy Disposition - observation to PCU Admission and Anticipated Discharge Date Admission Date: April 26, 2024 Supervising Physician Co-Signing Physician Notes Attending Physician Supervision Note: I independently interviewed and examined the patient and verified the angel history and physical, reviewed labs and image studies and agree with findings and care plan noted above. Stroke like symptoms- improved but with persistent left leg weakness worse than baseline and same for expressive aphasia. -continue DTAP, not on statin - didn't tolerate and last stroke considered embolic. permissive HTN. Echo for bubble study - pending. Await brain MRI on sunday pending PPM compatibility assessment. -PT/OT/Speech eval. PAF - No on AC. s/p watchman procedure and ablation. Bacteriuria - denied urinary symptoms. Urine cx - >100k G neg. On cefepime - could d/c in am pending MRI results. -Placed on vanco prophylaxis d/t h/o C diff. Lovenox. Subjective Pt seen and evaluated by the bedside. speaking clearly however pt says that she still feel bit difficult in word finding. denies any dysuria, freq or urgency. pt on IV abx. Review of Systems Review of Systems: Constitutional: denies fever, chills HEENT: denies congestion, sore throat Cardio: denies chest pain, palpitations Resp: denies shortness of breath, cough GI: denies abdominal pain, nausea, vomiting, constipation, diarrhea : denies pain with urination, change in urinary frequency Neuro: denies new numbness, tingling, weakness, some word finding difficulty. Physical Exam Physical Exam: General:Alert and oriented, no acute distress HEENT: Normocephalic, moist oral mucosa, Cardio: irregular rhythm. Resp:Lungs clear to auscultation b/l, no wheezes or rhonchi, GI: Soft and nontender, nondistended, bowel sounds active Skin: Warm, pink, dry, Neuro: speech clear, RUL -5/5. some residual LS weakness. rest of neurology non focal. Psych: Mood-affect congruence. Results & Data Results & Data Vital Signs (Past 12 Hours) Vital Signs Temp Pulse Pulse Resp BP BP Pulse Ox 04/27/24 07:49 36.9 C 69 17 156/84 H 93 04/27/24 03:33 36.7 C 71 17 160/88 H 94 04/26/24 23:21 36.9 C 75 18 152/66 H 95 04/26/24 21:59 103 H O2 Del Method 04/27/24 07:49 Room Air 04/27/24 03:33 CPAP 04/26/24 23:21 CPAP 04/26/24 21:59 Resident Activity Tracking Resident Involvement: Resident Care Provided Care Provided: Adult Hospital Medicine
[2024-04-27] MEDS: MULTIVITAMIN TAB PO SCH (08:55)
[2024-04-27] MEDS: ASPIRIN 81 MG CHEW PO SCH (08:56)
[2024-04-27] MEDS: UMECLIDINIUM/VILANTEROL 62.5/25MCG 7 PUFFS/INHALER INH SCH (08:56)
[2024-04-27] MEDS: CLOPIDOGREL BISULFATE 75 MG TAB PO SCH (08:56)
[2024-04-27] MEDS: FLUTICASONE FUROATE 100MCG 14 PUFFS/INHALER INH SCH (08:57)
[2024-04-27] MEDS ORDERED: NON-FORMULARY MEDICATION (Fluticasone-Umeclidin-Vilanter [Trelegy Ellipta] 100-62.5-25 mcg INH SCH (09:00)
--- NOTE | 2024-04-27 12:14 | Pharmacy Report ---
- Date of Service April 27, 2024 - Pharmacy CVA/TIA Medication Review Medications to Prevent Stroke handout has been added to the patients discharge packet. Antiplatelet(s) * Aspirin, clopidogrel Cholesterol * High intensity statin deferred for now due to history of hemorrhagic stroke - discussed w Dr. Yadira Gutierrez DVT Prophylaxis * Enoxaparin SQ for now - discussed switching to SCD's w Dr. Yadira Gutierrez due to hx hemorrhagic stroke Therapeutic Anticoagulation * Hx Afib/Aflutter noted, but anticoagulation is being deferred due to hx of hemorrhagic stroke, per neurology note Type 2 Diabetes * Patient does not have T2DM
--- NOTE | 2024-04-27 12:16 | Electrocardiogram Report ---
Test Reason : Blood Pressure : */* mmHG Vent. Rate : 104 BPM Atrial Rate : 104 BPM P-R Int : 176 ms QRS Dur : 110 ms QT Int : 394 ms P-R-T Axes : 73 68 -10 degrees QTcB Int : 518 ms Atrial-sensed ventricular-paced rhythm Abnormal ECG When compared with ECG of 05-Mar-2024 14:11, Vent. rate has increased by 14 bpm Confirmed by Levar Devine ([id number]) on 04/27/2024 12:16:08 PM Referred By: Confirmed By: Levar Devine
[2024-04-27] MEDS ORDERED: ROSUVASTATIN CALCIUM 20 MG TAB PO SCH (21:00)
[2024-04-28 08:00] LABS: Basophils # (auto) 0.04 K/uL (0.00-0.20); Basophils % (auto) 0.6 %; Eosinophils # (auto) 0.13 K/uL (0.00-0.50); Eosinophils % (auto) 2.1 %; Hematocrit (blood only) 40.8 % (37.0-47.0); Hemoglobin 13.4 g/dl (12.0-16.0); Immature Granulocytes # (auto) 0.02 K/uL (0.01-0.20); Immature Granulocytes % (auto) 0.3 %; Lymphocytes # (auto) 1.33 K/uL (1.20-3.40); Lymphocytes % (auto) 21.3 %; Mean Corpuscular Hemoglobin 28.2 pg (25.0-34.0); Mean Corpuscular Hgb Conc 32.8 g/dL (32.0-36.0); Mean Corpuscular Volume 85.7 fL (80.0-100.0); Mean Platelet Volume 9.4 fL (9.4-12.4); Monocytes # (auto) 0.54 K/uL (0.11-0.59); Monocytes % (auto) 8.6 %; Neutrophils # (auto) 4.19 K/uL (1.40-6.50); Neutrophils % (auto) 67.1 %; Platelet Count 360 K/uL (130-400); RDW Coefficient of Variation 12.9 % (11.5-14.5); RDW Standard Deviation 39.9 fL (36.4-46.3); Red Blood Count 4.76 M/uL (4.20-5.40); White Blood Count 6.25 K/ul (4.8-10.8)
[2024-04-28 08:18] LABS: BUN Creatinine Ratio 24.7 (10-20); Calcium 9.7 mg/dl (8.6-10.3); Creatinine Clr Calc Pharmacy 58.4 ml/min; Est GFR (Non-African American) 81.1 ml/min; Potassium 4.2 mmol/L (3.5-5.1)
[2024-04-28] MEDS: POLYETHYLENE (MIRALAX) 17 GM PACK PO SCH (10:19)
[2024-04-28] MEDS: cephALEXin 500 MG CAP PO SCH (17:47)
--- NOTE | 2024-04-28 17:48 | Hospitalist Progress Note ---
Date of Service April 28, 2024 Assessment & Plan (1) Stroke-like symptoms: Plan: Significant expressive dysphagia with mild RUE weakness - improved today. dd: Minor stroke/TIA /UTI. given hx of recent stroke, TNK with S/p, pt is not a candidate for thrombolysis. Not TNK candidate due to prior hemorrhagic stroke following TNK in November CT head nil acute. Bubble Echo 04/27 - Negative R-Lt shunt. EF 55-60% Plan: Awaiting Brain MRI C/w aspirin and clopidogrel Allow permissive hypertension for 24-48 hours,( hold losartan and hydralazine). Labetalol PRN for sBP > 220 or dBP > 120 Tele -Neuro on onboard (2) Paroxysmal atrial fibrillation: Plan: Known hx Never been on anticoagulation per pt Had watchman procedure 2022. Pacemaker insitu Plan: pt on ASA+Plavix. Tele. (3) UTI (urinary tract infection): Plan: some dysuria. Urine + C&S. c/w PO Keflex c/w PO Vanco for c.diff Px. Plan VTE prophylaxis - Lovenox 40 mg SQ daily Diet - heart healthy Disposition - observation to PCU Admission and Anticipated Discharge Date Admission Date: April 26, 2024 Supervising Physician Co-Signing Physician Notes I personally examined the patient and verified all angel points of history and exam, discussed case, and agree with decision making with Dr Yadira Gutierrez Feeling better overall. Son also notes that her symptoms have improved quite a bit. Called on the phone and updated him to the best my ability and to his satisfaction as well. Vitals noted, in general she is awake and alert pleasant no distress. HEENT normocephalic atraumatic mucous membranes moist. Slight right-sided weakness. Slight right lateral upper visual deficit seems to be in the right eye only although somewhat difficult to examine this regard. Stroke like symptoms- improvedSuspect recrudescence due to urinary tract infection physiology as well as dehydration, cannot rule out recurrent stroke. -continue DTAP, not on statin - didn't tolerate and last stroke considered embolic. permissive HTN. Echo for bubble study - pending. 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 -PT/OT/Speech eval. PAF - No on AC. s/p watchman procedure and ablation. Bacteriuria - On further review does have a degree of urinary symptoms. Continue antibiotics. -Placed on vanco prophylaxis d/t h/o C diff. Lovenox. Subjective Pt seen and evaluated by the bedside. speaking clearly however pt says that she still feel bit difficult in word finding. denies any dysuria, freq or urgency. pt on IV abx. Review of Systems Review of Systems: Constitutional: denies fever, chills HEENT: denies congestion, sore throat Cardio: denies chest pain, palpitations Resp: denies shortness of breath, cough GI: denies abdominal pain, nausea, vomiting, constipation, diarrhea : denies pain with urination, change in urinary frequency Neuro: denies new numbness, tingling, weakness, some word finding difficulty. Physical Exam Physical Exam: General:Alert and oriented, no acute distress HEENT: Normocephalic, moist oral mucosa, Cardio: irregular rhythm. Resp:Lungs clear to auscultation b/l, no wheezes or rhonchi, GI: Soft and nontender, nondistended, bowel sounds active Skin: Warm, pink, dry, Neuro: speech clear, RUL -5/5. some residual LS weakness. rest of neurology non focal. Psych: Mood-affect congruence. Results & Data Results & Data Vital Signs (Past 12 Hours) Vital Signs Temp Pulse Pulse Resp BP Pulse Ox O2 Del Method 04/28/24 16:00 80 04/28/24 16:00 36.8 C 88 18 158/87 H 96 Room Air 04/28/24 11:56 36.6 C 74 20 167/92 H 95 Room Air 04/28/24 08:04 36.6 C 71 18 158/73 H 96 CPAP 04/28/24 08:00 73 (3) UTI (urinary tract infection) Urinary tract infection type: site unspecified Hematuria presence: without hematuria Qualified Code(s): N39.0 - Urinary tract infection, site not specified
--- NOTE | 2024-04-28 18:29 | Billing Data ---
Date of Service April 28, 2024 Coding Level of Care Code 27142 SUB INP/OBS CARE
[2024-04-29 06:59] LABS: Basophils # (auto) 0.06 K/uL (0.00-0.20); Basophils % (auto) 0.9 %; Eosinophils # (auto) 0.38 K/uL (0.00-0.50); Eosinophils % (auto) 5.9 %; Hematocrit (blood only) 39.2 % (37.0-47.0); Hemoglobin 13.3 g/dl (12.0-16.0); Immature Granulocytes # (auto) 0.03 K/uL (0.01-0.20); Immature Granulocytes % (auto) 0.5 %; Lymphocytes # (auto) 1.44 K/uL (1.20-3.40); Lymphocytes % (auto) 22.4 %; Mean Corpuscular Hemoglobin 28.6 pg (25.0-34.0); Mean Corpuscular Hgb Conc 33.9 g/dL (32.0-36.0); Mean Corpuscular Volume 84.3 fL (80.0-100.0); Mean Platelet Volume 9.7 fL (9.4-12.4); Monocytes # (auto) 0.64 K/uL (0.11-0.59); Neutrophils # (auto) 3.88 K/uL (1.40-6.50); Neutrophils % (auto) 60.3 %; Platelet Count 341 K/uL (130-400); RDW Coefficient of Variation 12.8 % (11.5-14.5); RDW Standard Deviation 39.7 fL (36.4-46.3); Red Blood Count 4.65 M/uL (4.20-5.40); White Blood Count 6.43 K/ul (4.8-10.8)
[2024-04-29 07:14] LABS: Calcium 9.5 mg/dl (8.6-10.3); Potassium 4.1 mmol/L (3.5-5.1)
[2024-04-29 07:20] LABS: BUN Creatinine Ratio 28.3 (10-20); Est GFR (African American) 104.1 ml/min; Est GFR (Non-African American) 89.8 ml/min
--- NOTE | 2024-04-29 10:51 | Hospitalist Progress Note ---
Date of Service April 29, 2024 Assessment & Plan (1) Stroke-like symptoms: Plan: Significant expressive dysphagia with mild RUE weakness - improved today. dd: Minor stroke/TIA /UTI. given hx of recent stroke, TNK with S/p, pt is not a candidate for thrombolysis. Not TNK candidate due to prior hemorrhagic stroke following TNK in November CT head nil acute. Bubble Echo 04/27 - Negative R-Lt shunt. EF 55-60% Plan: Awaiting Brain MRI, possibly tomorrow (04/30) C/w aspirin and clopidogrel Allow permissive hypertension for 24-48 hours,( hold losartan and hydralazine). Labetalol PRN for sBP > 220 or dBP > 120 Tele -Neuro on onboard (2) Paroxysmal atrial fibrillation: Plan: Known hx Never been on anticoagulation per pt Had watchman procedure 2022. Pacemaker insitu Plan: pt on ASA+Plavix. Tele. (3) UTI (urinary tract infection): Plan: some dysuria. Urine + C&S. c/w PO Keflex c/w PO Vanco for c.diff Px. Plan VTE prophylaxis - Lovenox 40 mg SQ daily Diet - heart healthy Disposition - observation to PCU Admission and Anticipated Discharge Date Admission Date: April 26, 2024 Supervising Physician Co-Signing Physician Notes I personally examined the patient and verified all angel points of history and exam, discussed case, and agree with decision making with Dr Yadira Gutierrez no new complaints doing well still waiting on MRI. discussed SiADH w pt and as well. Vitals noted, in general she is awake and alert pleasant no distress. HEENT normocephalic atraumatic mucous membranes moist. walking well w PT. Stroke like symptoms- improvedSuspect recrudescence due to urinary tract infection physiology as well as dehydration, cannot rule out recurrent stroke. -continue DTAP, not on statin - didn't tolerate and last stroke considered embolic. permissive HTN. Echo for bubble study - pending. Await brain MRI still having to wait for [employer] sales representative due to device. -PT/OT/Speech eval ongoing PAF - No on AC. s/p watchman procedure and ablation. Bacteriuria - On further review does have a degree of urinary symptoms. Continue antibiotics. -Placed on vanco prophylaxis d/t h/o C diff. Lovenox. Subjective Pt seen and evaluated by the bedside. speaking clearly. pt says that she feels her difficult in word finding is getting better. denies any dysuria, freq or urgency. pt on keflex for UTI. Review of Systems Review of Systems: Constitutional: denies fever, chills HEENT: denies congestion, sore throat Cardio: denies chest pain, palpitations Resp: denies shortness of breath, cough GI: denies abdominal pain, nausea, vomiting, constipation, diarrhea : denies pain with urination, change in urinary frequency Neuro: denies new numbness, tingling, weakness, some word finding difficulty. Physical Exam Physical Exam: General:Alert and oriented, no acute distress HEENT: Normocephalic, moist oral mucosa, Cardio: irregular rhythm. Resp:Lungs clear to auscultation b/l, no wheezes or rhonchi, GI: Soft and nontender, nondistended, bowel sounds active Skin: Warm, pink, dry, Neuro: speech clear, RUL -5/5. some residual LS weakness. rest of neurology non focal. Psych: Mood-affect congruence. Results & Data Results & Data Vital Signs (Past 12 Hours) Vital Signs Temp Pulse Resp BP Pulse Ox O2 Del Method 04/29/24 06:56 36.5 C 77 20 168/69 H 96 Room Air 04/29/24 04:05 36.4 C L 70 18 188/97 H 95 CPAP 04/29/24 00:05 36.3 C L 65 16 182/96 H 96 CPAP Resident Activity Tracking Resident Involvement: Resident Care Provided Care Provided: Adult Hospital Medicine (3) UTI (urinary tract infection) Hematuria presence: without hematuria Urinary tract infection type: site unspecified Qualified Code(s): N39.0 - Urinary tract infection, site not specified
--- NOTE | 2024-04-29 16:49 | Billing Data ---
Date of Service April 29, 2024 Coding Level of Care Code 29617 SUB INP/OBS CARE
[2024-04-29] MEDS: SODIUM CHLORIDE 1 GM TABLET PO SCH (20:03)
[2024-04-30 07:26] VITALS: RESP 16; TEMP 97.5
[2024-04-30 07:58] LABS: Basophils # (auto) 0.07 K/uL (0.00-0.20); Eosinophils # (auto) 0.26 K/uL (0.00-0.50); Eosinophils % (auto) 3.9 %; Hematocrit (blood only) 40.7 % (37.0-47.0); Hemoglobin 13.9 g/dl (12.0-16.0); Immature Granulocytes # (auto) 0.05 K/uL (0.01-0.20); Immature Granulocytes % (auto) 0.7 %; Lymphocytes # (auto) 1.49 K/uL (1.20-3.40); Lymphocytes % (auto) 22.2 %; Mean Corpuscular Hemoglobin 28.7 pg (25.0-34.0); Mean Corpuscular Hgb Conc 34.2 g/dL (32.0-36.0); Mean Corpuscular Volume 84.1 fL (80.0-100.0); Mean Platelet Volume 9.6 fL (9.4-12.4); Monocytes # (auto) 0.54 K/uL (0.11-0.59); Neutrophils # (auto) 4.31 K/uL (1.40-6.50); Neutrophils % (auto) 64.2 %; Platelet Count 396 K/uL (130-400); RDW Coefficient of Variation 12.9 % (11.5-14.5); RDW Standard Deviation 39.6 fL (36.4-46.3); Red Blood Count 4.84 M/uL (4.20-5.40); White Blood Count 6.72 K/ul (4.8-10.8)
[2024-04-30 08:12] LABS: Calcium 9.9 mg/dl (8.6-10.3); Creatinine Clr Calc Pharmacy 66.6 ml/min; Est GFR (African American) 101.9 ml/min; Est GFR (Non-African American) 87.9 ml/min; Magnesium 1.9 mg/dl (1.7-2.4); Potassium 3.9 mmol/L (3.5-5.1)
[2024-04-30 10:56] VITALS: PULSE 71; O2SAT 94
[2024-04-30] MEDS: LORazepam 2 MG/1 ML VIAL IV PRN (11:36)
--- NOTE | 2024-04-30 12:26 | Magnetic Resonance Report ---
MRI OF THE BRAIN WITHOUT IV CONTRAST CLINICAL HISTORY: Dysphasia. Right upper extremity weakness. COMPARISON STUDY: CT of the brain dated 04/26/2024. TECHNIQUE: MRI of the brain was performed utilizing various T1 and T2-weighted sequences in the axial , sagittal, and coronal planes. IV contrast was not administered for this examination. FINDINGS: Brain parenchyma: There is age-related involutional change noting moderate subcortical and periventri cular microangiopathic disease. Left occipital encephalomalacia is consistent with a remote insult. H emosiderin deposition within this region likely represents the sequelae of prior hemorrhage. There is no evidence of acute hemorrhage or mass effect. There is no restricted diffusion to suggest acute is chemia. Chronic-appearing infarcts are noted in the right basal ganglia. Berumen-white matter differenti ation is preserved. No extra-axial fluid collection is seen. The cerebellar tonsils are normal in con figuration. Ventricles, sulci, and cisterns: Prominent secondary to involutional change. Pituitary and sella: Unremarkable. Intracranial vasculature: Normal flow voids are maintained at the skull base. Orbits: The bony orbits are grossly intact. Orbital contents are normal in appearance noting bilatera l ocular lens implants. Sinuses and mastoids: There is evidence of previous paranasal sinus surgery. Mild mucosal thickening is noted in the right maxillary antrum. The remaining paranasal sinuses are clear and the mastoid air cells are well pneumatized. Calvarium: Unremarkable. Cervical cord: Partially visualized cervical spinal cord is normal in morphology and signal intensity . IMPRESSION: Chronic findings as above with no acute intracranial abnormality. ACT 112: Negative or not required by law. Electronically signed by: Carlos Vicente M.D. 04/30/2024 12:24 PM
[2024-04-30 13:45] VITALS: BP 188/84
--- NOTE | 2024-04-30 16:14 | Discharge Summary ---
Discharge Summary Date of Service April 30, 2024 Principal Dx & Hospital Course #1 = Principal Diagnosis (1) Stroke-like symptoms: after further review and MRI without new findings of acute ischemia - almost certainly recrudescence of old sx (and due to dehydration, physiologic stressor from UTI0 --> safe/stable for home. no new cerebrovascular specific treatment, ongoing PT/OT/speech as outpt. (2) UTI (urinary tract infection): jarvis sensitive E Coli c/w PO Keflex c/w PO Vanco for c.diff Px. (3) SIADH (syndrome of inappropriate ADH production): Sodium levels have been reasonable here, sodium has been fairly easy to control; on review of old records it also looks like significant drops in sodium have been few and far between. Patient had been managing this with fluid restriction, but given the dehydration was likely part of her stroke recrudescence, we discussed liberalizing fluid intake. To offset this we discussed increasing solute intake as well. She had previously tried urea, but really could not tolerate it. We discussed that urea does provide a much bigger solute load, but given that her SIADH seems to be fairly easy to manage, it would likely be manageable with a somewhat more liberal fluid intake (a minimum of 60 but maximum of 80 ounces of fluid a day), combined with an increase in sodium intake (salt tabs twice daily and liberalized sodium in her diet. Follow basic metabolic panel weekly for the short-term to ensure that her numbers do not drop precipitously. Otherwise ongoing outpatient follow-up. (4) Paroxysmal atrial fibrillation: Known hx Never been on anticoagulation per pt Had watchman procedure 2022. Pacemaker insitu Plan: pt on ASA+Plavix. rate controlled Plan safe/stable for home Notes For Next Care Provider Medication Changes From Visit salt tabs, keflex added Admission HPI Per Admitting Provider Danielle Pulliam is a 74 year old female who presents to the ER with expressive dysphasia and right hand weakness. Unable to get any significant history from the patient due to her expressive dysphagia. at bedside reports her symptoms started around 9:30 AM this morning while he was out. On returning he noticed the patient appeared more confused and was unable to say correct words. She was able to articulate that she was having right upper extremity weakness. 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 Her symptoms at that time was sudden onset weakness, sensory changes and difficulty in speech. Suspected to be cardioembolic from paroxysmal A-fib/flutter without being on anticoagulation. She has residual deficit on her left side hand and leg from her prior stroke. Updated Medication List Medication Instructions Recorded Confirmed Type acetaminophen 500 mg tablet 500 mg PO Q6H PRN Pain 01/30/19 04/26/24 History (Tylenol Extra Strength) cetirizine 10 mg capsule (Zyrtec) 10 mg PO DAILY PRN Allergy Symptoms 09/10/19 04/26/24 History fluticasone propionate 50 2 spray intranasal DAILY PRN 04/13/22 04/26/24 History mcg/actuation nasal Allergy Symptoms spray,suspension (Flonase Allergy Relief) clopidogrel 75 mg tablet 75 mg PO QAM 09/12/22 04/26/24 History metoclopramide HCl 10 mg tablet 10 mg PO TID 10/04/22 04/26/24 History albuterol sulfate 90 mcg/actuation 2 puff inhalation Q4H PRN 10/25/22 04/26/24 Rx aerosol inhaler (Ventolin HFA) Shortness Of Breath #3 Inhalers denosumab 60 mg/mL subcutaneous 60 mg subcut Q6MO 02/07/23 04/26/24 History syringe (Prolia) esomeprazole magnesium 40 mg 40 mg PO QPM #90 caps 03/12/23 04/26/24 Rx capsule,delayed release fluticasone fur. 100 mcg-umeclid 1 inh inhalation DAILY #3 Inhalers 12/25/23 04/26/24 Rx 62.5 mcg-vilant 25 mcg inhalat.powder (Trelegy Ellipta) aspirin 81 mg chewable tablet 81 mg PO DAILY 02/07/24 04/26/24 History levetiracetam 500 mg tablet 500 mg PO BID 02/07/24 04/26/24 History (Keppra) losartan 50 mg tablet 50 mg PO BID 02/07/24 04/26/24 History multivitamin 1 tab PO QAM 02/07/24 04/26/24 History tramadol 50 mg tablet 50 mg PO Q4H PRN Pain 02/07/24 04/26/24 History folic acid 1 mg tablet 1 mg PO BID 04/26/24 04/26/24 History hydralazine 50 mg tablet 50 mg PO TID 04/26/24 04/26/24 History cephalexin 500 mg capsule 500 mg PO TID #10 caps 04/30/24 Rx sodium chloride 1,000 mg soluble 1,000 mg PO BID #60 tabs 04/30/24 Rx tablet vancomycin 125 mg capsule 125 mg PO DAILY #10 caps 04/30/24 Rx Hospital Stay Data Consultations 04/26/24 11:48 ED Decision to Admit Stat 04/26/24 14:26 Consult Neurology Routine Diagnostic Imagining Performed 04/26/24 10:26 CT angio head w con Stat CT angio neck with con Stat CT head/brain wo con Stat 04/30/24 00:00 MR brain wo con Stat Pending Results Patient Have Any Pending Studies at Discharge: No Discharge Instructions Given to Patient (Per Discharging Provider) Strokelike symptoms - fortunately, as we had expected, your MRI does not show any evidence of a new stroke. This makes it extremely likely that the recurrence of how you fell right after your stroke is "unmasking" (recrudescence) of your strokelikely from temporarily reduced blood flow/added physiologic stress (see below) - typically what I see whenever somebody has unmasking of a prior stroke is that they do not have to "start all over" with therapy, but it often does present as a little bit of a temporary setback. I would continue to do therapy as you have been doing, and expect your progress to catch back up with where you were, it just may take a little time. - The "why now" of what happened probably was a combination of being a bit dehydrated, combined with the inflammatory physiology our body has with bacterial infections (in your case urinary tract infection) dehydration - as we discussed, it is extremely common as people get older that the hormones that make us feel thirsty start to wear off. With that in mind, staying hydrated starts to become "on exercise in accounting" rather than simply placating thirst - because of this, it is also extremely common that folks in their 70s and older will be chronically dehydratedand when that is the case, it often does not take much of a "new insult" to cause problems - the added level of complexity for you is your baseline low sodium levelsthis appears to be due to what is called "SIADH" (syndrome of inappropriate antidiuretic hormone)what this means is that your brain sends a little too much of the hormone to your kidneys telling your kidneys to hold onto water. In that respect, the low sodium is not really a "sodium problem" as much as it is a dilution effect of your kidneys holding onto more water than they should. - Normally one of the easiest ways to manage this sodium problem is to simply restrict fluid intake (if you drink less overall, and your kidneys retain a certain percentage of what you drink, then you retain less overall)but given that this appears to be a contributing factor to you getting dehydrated, and dehydration was a contributing factor to unmasking your stroke, we definitely need to go about this a different way with you. - While we can reduce the "dilution effect" by having and drink less, we can also add more "solute" (salt/substance) as an alternative strategy. It appears that this has been tried with you before with the ureathis is often the most effective way to "treat the lab" because urea is really dense and solute (it essentially has a a lot of "bang for the pandey" with adding electrolytes)but as you noticed, it was quite intolerable to take. - We can add electrolytes with saltit is just that it often takes more to get the job done. What I would propose we do is modestly increase your fluid intake (having you drink 60 ounces on the day minimum, but probably about 80 ounces on the day maximum), and modestly increase your salt intake (salt tabs 1000 mg twice a day, and liberal salt in your dietsuch as having a bowl of soup every day)looking at your prior labs, it is quite likely that this will get as a "best of both worlds" where we can have you better hydrated without necessarily impacting your sodium levels too much (as we discussed people do not necessarily need to be perfectly normal with levels to feel okay, most people tend to feel okay as long as they are somewhere in the high 120 range or higher). - We will also asked that you have lab work checked once a week for the next few weeks (basic metabolic panelBMP)that way we can be sure that your sodium levels are not shifting dramatically, and if things are dropping too much, we can adjust the plan before it leads to true, symptomatic problemsor repeat hospitalization (i.e. if we start to see your sodium levels going down, we can adjust the course before there are real problems) urinary tract infection - added to the dehydration was the physiologic stress that happens with our bodies with a bacterial infectionfortunately, this particular urinary tract infection is extremely easy to treat. (While you have previously grown some more difficult to treat bacteria in the past, this is an extremely simple/easy to kill strain of E. colithe most common urinary tract infection bug we see) - we currently have you on cephalexinwe will finish out the course of treatment with 3 more days of cephalexin (tonight's dose and then , Sunday, Sunday). Cdiff prevention - as we discussed, whenever someone has had C. difficile recently, and then they need to be on antibiotics for different infection, we drastically reduce the risk of a C. difficile recurrence by using vancomycin preventatively. Usually we will treat for 7 days after we are done with the course of antibiotics for the infection. To that end, I have sent in a prescription for 10 days of vancomycin (for the 3 more days you are on the cephalexin, and then a week after) to do: - Get back to doing physical therapy to continue to recover from your prior stroke and accelerate improving from the current "stroke unmasking" - track how much you drink so that you are taking a minimum of 60 ounces (and a maximum of 80 ounces) of fluid daily - take the salt tabs twice a day and eat more salt in your diet (such as a bowl of soup daily) - finish treating the urinary tract infection with a dose of cephalexin tonight at bedtime, and then dosing 3 times daily tomorrow, Sunday, and Sunday; take vancomycin 125mg daily for 10 more days - have lab work once a week with Dr. Tavarez for the next 4 weeks (basic metabolic panel) to make sure your sodium levels stay reasonable with the change in plan Total Time Total Time Spent Total Time Spent (In Minutes): <30
--- NOTE | 2024-04-30 16:14 | Billing Data ---
Date of Service April 30, 2024 Coding Level of Care Code 57988 IN/OBS DISCH 30 MIN/LESS
[2024-04-30] MEDS ORDERED: SODIUM CHLORIDE 1 GM TABLET PO SCH (21:00)
== END 2024-04-30 15:19 | disposition home or self-care (01) | DRG 392 ==
LOC: ED 10:17 → 2S 10:17 → SUATTDRO 12:00 → 2S 13:16

== ENCOUNTER 2024-05-06 14:33 | Inpatient (IN) ==
[2024-05-06] MEDS: diphenhydrAMINE 50 MG/ML VIAL IV ONE (15:05)
[2024-05-06] MEDS: HYDROmorphone INJ 0.5 MG/0.5 ML SYR IV STA ×2 (15:06→20:43)
[2024-05-06] MEDS: methylPREDNISolone 125 MG/2 ML VIAL IV ONE (15:06)
[2024-05-06 15:13] LABS: iSTAT Creatinine 0.6 mg/dl (0.6-1.3); iSTAT Hemoglobin 13.6 g/dl (12.0-16.0); iSTAT Ionized Calcium 1.23 mmol/l (1.12-1.32); iSTAT Potassium 3.7 mmol/L (3.3-5.0)
--- NOTE | 2024-05-06 15:17 | Emergency Department Note ---
Impression & Plan Fracture of inferior pubic ramus, Closed fracture of superior pubic ramus, Clavicle fracture ED Provider Note NAME: YOKO MATTA AGE: 74 SEX: F : 1950 ARRIVES VIA: Ambulance INFORMANT: Patient, ED PROVIDER(S): Anali Foley MD CHIEF COMPLAINT: Trauma alert HPI: This is a 74-year-old female presenting for a trauma alert. Patient was getting out of a chair when she tripped and fell patient hit her left side. She notes pain to her left shoulder and hip. Did not hit her head. Did not lose consciousness. She is on Plavix for A-fib. She has extreme left hip pain. She has shoulder pain as well. She is unable to move her left hip due to pain. ROS: See above HPI for pertinent positives & negatives. A total of 10 systems reviewed and were otherwise negative. PAST MEDICAL HISTORY: See Below PAST SURGICAL HISTORY: See Below FAMILY HISTORY: See Below SOCIAL HISTORY: See Below HOME MEDICATIONS: See Below ALLERGIES: See Below VITALS: See Below PHYSICAL EXAMINATION: General: Severe distress due to pain Head: Normocephalic and atraumatic Eyes: Normal inspection, extraocular muscles intact Ear, nose, throat: Normal external exam Neck: Normal range of motion Respiratory: lungs clear to auscultation bilaterally Cardiovascular: Regular rate/rhythm, no murmur GI: soft, nontender, no guarding or rebound Extremities: Left hip pain with range of motion, left shoulder pain finger motion, 2+ pulses in all extremities, no shortening Neuro: The patient awake and alert, appropriately conversive, no focal deficits, symmetric faces Skin: Warm, dry, and intact MEDICAL DECISION MAKING: This is a 74-year-old female presenting as a trauma alert. Patient is on Plavix for A-fib. Primary assessment reveals intact airway, breathing and circulation. Secondary assessment reveals pain in the left hip and shoulder without obvious deformity. Will do x-ray of the pelvis and shoulder. Upon independent interpretation I do see a pelvic ring/pubic rami fracture -Will do CT ab/pelvis to assess for bleeding and otherwise subtle fractures due to this mechanism -Will add on CT head/C-spine to complete trauma workup -Chest Xray independently interpreted by me showing no pneumothorax, focal opacity, or pleural effusions. -Shoulder x-ray does reveal a distal clavicle -CT head and C-spine are currently negative -CT ab/pelvis does reveal the superior and inferior pubic rami fractures with small amount of extraperitoneal/intramuscular hemorrhage. No active externalization. There is unchanged small pericardial effusion and evidence of mild pulmonary edema. -Discussed with Dr. Santana, orthopedic surgeon, who reviewed the images. He recommends repeat H&H in the morning, shoulder sling, weightbearing as tolerated -Care discussed with Armin Sanford PA-C and Dr. Rdz for admission Differential diagnosis: Hip fracture, pubic rami fracture, open book fracture, shoulder fracture, intracranial hemorrhage, splenic and liver laceration ER treatment provided: See below Independent History obtained from: Diagnostics interpreted by me: ECG: None Cardiac Monitoring: An order was placed for continuous cardiac monitoring. The monitor shows a rate of 106 with sinus rhythm Laboratory studies: As stated above and show below. Imaging studies: See below. Critical Care Note: I have personally spent 35 minutes of critical care time in the direct management of this patient. This includes bedside care, interpretation of diagnostic studies, and testing, discussion with consultants, patient, and family members, and other required patient management activities. This 35 minutes is in excess of all separately billable procedures. Past Med/Surg History Problem List (Updated 05/06/24 @ 23:47 by Anali Foley MD) Clavicle fracture (Acute) Closed fracture of superior pubic ramus (Acute) Fracture of inferior pubic ramus (Acute) Fall Closed fracture of distal clavicle Fracture of superior pubic ramus UTI (urinary tract infection) Stroke-like symptoms (Acute) Osteoporosis Presence of Watchman left atrial appendage closure device Paroxysmal atrial fibrillation Effusion, pericardium (Acute) Atrial fibrillation with rapid ventricular response (Acute) CVA (cerebral vascular accident) GERD (gastroesophageal reflux disease) Hyperlipidemia Ischemic cerebrovascular accident (CVA) FSH (facioscapulohumeral muscular dystrophy) COPD (chronic obstructive pulmonary disease) SIADH (syndrome of inappropriate ADH production) HTN (hypertension) Prediabetes (Chronic) Dysphagia (Acute) Liver lesion, right lobe (Acute) LVH (left ventricular hypertrophy) Diastolic dysfunction Tremor Carcinoid syndrome Hypoglycemia Obstructive sleep apnea Medical History Subarachnoid hemorrhage Acute intracerebral hemorrhage Shoulder pain, right Former smoker IBS (irritable bowel syndrome) Vitamin D deficiency History of small bowel obstruction (~2013) History of colon polyps History of skin cancer Antibiotic-induced yeast infection Seasonal allergies Lung nodules Adrenal adenoma Carcinoid tumor of colon History of claustrophobia Nasal cavity polyp Mild obstructive sleep apnea Chronic rhinitis Langerhans cell histiocytosis Gastroparesis GERD (gastroesophageal reflux disease) Surgical History History of surgery History of Mohs micrographic surgery for skin cancer History of lung biopsy H/O hysterectomy with oophorectomy S/P thoracotomy Hx of exploratory laparotomy S/P appendectomy H/O: hysterectomy Family History Father Myocardial infarction Hypertension Mother Congestive heart failure Hypertension Grandfather (Paternal) Myocardial infarction Grandfather (Maternal) Myocardial infarction Grandmother Colorectal cancer Other Atrial fibrillation Family history of diabetes mellitus Social History Smoking Status: Former smoker Tobacco Type: Cigarettes Age Started Using Tobacco: 16; Age Quit Using Tobacco: 63; packs per day: 0.75; Second Hand Exposure: No; Do You Dip or Chew Tobacco: No; Hx Alcohol Use: Yes Alcohol type: wine Hx Substance Use: No Preferred Language: Sudanese Communication Ability: Effective [employer] Required: No Beliefs That Will Affect Care: None marital status: Current Living Situation: Spouse current occupational status: retired Other Information That Helps Us Care for You: No Feels Safe at Home: Yes Safety Concerns: Feels Safe At This Time Seatbelt Use: always Sunscreen Use: Yes Assistive Devices: CPAP Assistive Devices Comment: CPAP at night Allergies Allergies Allergy/AdvReac Type Severity Reaction Status Date / Time Iodinated Contrast Media Allergy Intermediate Hives Verified 04/26/24 13:07 mold Allergy Intermediate SNEEZING/CO Verified 04/26/24 13:07 NGESTION moxifloxacin [From Avelox] Allergy Intermediate ITCHING/YEAST Verified 04/26/24 13:07 INFECTION Tetracyclines Allergy Intermediate ? ITCH ALL Verified 04/26/24 13:07 OVER, PT NOT SURE adhesive Allergy Mild ITCHY RASH Verified 04/26/24 13:07 Penicillins Allergy Rash Verified 04/26/24 13:07 Sulfa (Sulfonamide Allergy Swelling Verified 04/26/24 13:07 Antibiotics) of Lip/Tongue/Throat amlodipine AdvReac Intermediate FATIGUE/CON Verified 04/26/24 13:07 STIPATION cefuroxime AdvReac Intermediate CAUSED C. Verified 04/26/24 13:07 DIFF INFECTION Home Meds Home Medications Medication Instructions Recorded Confirmed acetaminophen 500 mg tablet 500 mg PO Q6H PRN Pain 01/30/19 05/06/24 (Tylenol Extra Strength) cetirizine 10 mg capsule (Zyrtec) 10 mg PO DAILY PRN Allergy Symptoms 09/10/19 05/06/24 fluticasone propionate 50 2 spray intranasal DAILY PRN 04/13/22 05/06/24 mcg/actuation nasal Allergy Symptoms spray,suspension (Flonase Allergy Relief) clopidogrel 75 mg tablet 75 mg PO QAM 09/12/22 05/06/24 metoclopramide HCl 10 mg tablet 10 mg PO TID 10/04/22 05/06/24 denosumab 60 mg/mL subcutaneous 60 mg subcut Q6MO 02/07/23 05/06/24 syringe (Prolia) aspirin 81 mg chewable tablet 81 mg PO DAILY 02/07/24 05/06/24 levetiracetam 500 mg tablet 500 mg PO BID 02/07/24 05/06/24 (Keppra) losartan 50 mg tablet 50 mg PO BID 02/07/24 05/06/24 multivitamin 1 tab PO QAM 02/07/24 05/06/24 tramadol 50 mg tablet 50 mg PO Q4H PRN Pain 02/07/24 05/06/24 folic acid 1 mg tablet 1 mg PO BID 04/26/24 05/06/24 hydralazine 50 mg tablet 50 mg PO TID 04/26/24 05/06/24 Previous Rx's Medication Instructions Recorded albuterol sulfate 90 mcg/actuation 2 puff inhalation Q4H PRN 10/25/22 aerosol inhaler (Ventolin HFA) Shortness Of Breath #3 Inhalers esomeprazole magnesium 40 mg 40 mg PO QPM #90 caps 03/12/23 capsule,delayed release fluticasone fur. 100 mcg-umeclid 1 inh inhalation DAILY #3 Inhalers 12/25/23 62.5 mcg-vilant 25 mcg inhalat.powder (Trelegy Ellipta) sodium chloride 1,000 mg soluble 1,000 mg PO BID #60 tabs 04/30/24 tablet vancomycin 125 mg capsule 125 mg PO DAILY #10 caps 04/30/24 Results & Data (ED) Vital Signs Vital Signs - 24 hr 05/06/24 14:25 05/06/24 14:25 05/06/24 14:25 Temperature 36.7 C 36.7 C 36.7 C Temperature Source Oral Oral Pulse Rate 90 90 Pulse Rate [Left Apical] 90 Respiratory Rate 17 17 17 Respiratory Effort / Characteristics Non-Labored Spontaneous Non-Labored Spontaneous Respiratory Depth Normal Normal Respiratory Pattern Regular Regular Blood Pressure 206/103 H 206/103 H Blood Pressure [Right Arm] 206/103 H Blood Pressure Mean 137 Blood Pressure Mean [Right Arm] 137 Pulse Oximetry 94 94 94 Oxygen Delivery Method Room Air Room Air Room Air Oxygen Flow Rate 0 Sepsis Recent Fever Within 48 Hours No Sepsis New/Unexplained Change in Mental Status N/A Sepsis Action Taken by Nursing No Action Required Oxygen Flow Rate - Titration Pulse Oximetry Post Tiitration 05/06/24 14:44 05/06/24 15:09 05/06/24 15:32 Temperature Temperature Source Pulse Rate 86 84 Pulse Rate [Left Apical] Respiratory Rate 19 Respiratory Effort / Characteristics Respiratory Depth Respiratory Pattern Blood Pressure 169/98 H Blood Pressure [Right Arm] Blood Pressure Mean 120 Blood Pressure Mean [Right Arm] Pulse Oximetry 96 Oxygen Delivery Method Room Air Oxygen Flow Rate Sepsis Recent Fever Within 48 Hours Sepsis New/Unexplained Change in Mental Status Sepsis Action Taken by Nursing Oxygen Flow Rate - Titration Pulse Oximetry Post Tiitration 05/06/24 15:36 05/06/24 16:00 05/06/24 16:02 Temperature Temperature Source Pulse Rate 78 Pulse Rate [Left Apical] 73 Respiratory Rate 18 21 Respiratory Effort / Characteristics Non-Labored Spontaneous Respiratory Depth Normal Respiratory Pattern Regular Blood Pressure Blood Pressure [Right Arm] 171/100 H Blood Pressure Mean Blood Pressure Mean [Right Arm] 123 Pulse Oximetry 94 87 L 93 Oxygen Delivery Method Room Air Nasal Cannula Nasal Cannula Oxygen Flow Rate 0 2 Sepsis Recent Fever Within 48 Hours Sepsis New/Unexplained Change in Mental Status Sepsis Action Taken by Nursing Oxygen Flow Rate - Titration 2 Pulse Oximetry Post Tiitration 95 05/06/24 16:25 05/06/24 16:30 05/06/24 17:00 Temperature Temperature Source Pulse Rate 74 81 Pulse Rate [Left Apical] 79 Respiratory Rate 18 19 17 Respiratory Effort / Characteristics Respiratory Depth Respiratory Pattern Blood Pressure 182/94 H Blood Pressure [Right Arm] 171/100 H Blood Pressure Mean 123 Blood Pressure Mean [Right Arm] 123 Pulse Oximetry 93 93 92 Oxygen Delivery Method Nasal Cannula Nasal Cannula Oxygen Flow Rate 2 2 Sepsis Recent Fever Within 48 Hours Sepsis New/Unexplained Change in Mental Status Sepsis Action Taken by Nursing Oxygen Flow Rate - Titration Pulse Oximetry Post Tiitration 05/06/24 17:15 05/06/24 17:30 05/06/24 17:51 Temperature Temperature Source Pulse Rate 74 80 84 Pulse Rate [Left Apical] Respiratory Rate 15 20 22 Respiratory Effort / Characteristics Respiratory Depth Respiratory Pattern Blood Pressure Blood Pressure [Right Arm] Blood Pressure Mean Blood Pressure Mean [Right Arm] Pulse Oximetry 93 91 92 Oxygen Delivery Method Nasal Cannula Nasal Cannula Nasal Cannula Oxygen Flow Rate 2 2 2 Sepsis Recent Fever Within 48 Hours Sepsis New/Unexplained Change in Mental Status Sepsis Action Taken by Nursing Oxygen Flow Rate - Titration Pulse Oximetry Post Tiitration 05/06/24 18:09 05/06/24 18:12 05/06/24 18:36 Temperature Temperature Source Pulse Rate 85 91 H 80 Pulse Rate [Left Apical] Respiratory Rate 19 24 Respiratory Effort / Characteristics Respiratory Depth Respiratory Pattern Blood Pressure Blood Pressure [Right Arm] Blood Pressure Mean Blood Pressure Mean [Right Arm] Pulse Oximetry 92 92 Oxygen Delivery Method Nasal Cannula Nasal Cannula Oxygen Flow Rate 2 2 Sepsis Recent Fever Within 48 Hours Sepsis New/Unexplained Change in Mental Status Sepsis Action Taken by Nursing Oxygen Flow Rate - Titration Pulse Oximetry Post Tiitration Laboratory Data Lab Results 05/06/24 Range/Units 15:01 POC Hgb 13.6 (12.0-16.0) g/dl POC Hct 40 (37-47) % POC Sodium 137 (135-144) mmol/L POC Potassium 3.7 (3.3-5.0) mmol/L POC Chloride 101 (101-112) mmol/L POC Total CO2 21 L (24-31) mmol/L POC Anion Gap 20.0 (16-25) mmol/L POC BUN 15 (7-18) mg/dl POC Creatinine 0.6 (0.6-1.3) mg/dl POC Glucose (other) 102 H (70-99) mg/dl POC Ioniz Calcium Leo 1.23 (1.12-1.32) mmol/l Administered Medications Folic Acid (Folic Acid 1 Mg Tab) 1 mg PO BID DOREEN Stop: 06/05/24 21:59 Last Admin: 05/06/24 23:35 Dose: 1 mg Documented By: SANDRA Hydralazine HCl (Hydralazine Tab 50 Mg Tab) 50 mg PO TID DOREEN Stop: 06/05/24 21:59 Last Admin: 05/06/24 23:36 Dose: 50 mg Documented By: SANDRA Hydromorphone HCl (Hydromorphone Inj 0.5 Mg/0.5 Ml Syr) 0.5 mg IV Q3H PRN PRN Reason: Moderate Pain (4,5,6) on NRS Stop: 05/20/24 21:59 Last Admin: 05/06/24 23:40 Dose: 0.5 mg Documented By: SANDRA Lactated Ringer's (Lr) 1,000 mls @ 100 mls/hr IV .Q10H DOREEN Stop: 05/07/24 14:44 Last Admin: 05/06/24 20:42 Dose: 100 mls/hr Documented By: KATE Levetiracetam (Levetiracetam 500 Mg Tab) 500 mg PO BID DOREEN Stop: 06/05/24 21:59 Last Admin: 05/06/24 23:35 Dose: 500 mg Documented By: SANDRA Losartan Potassium (Losartan Potassium 50 Mg Tab) 50 mg PO BID DOREEN Stop: 06/05/24 21:59 Last Admin: 05/06/24 23:35 Dose: 50 mg Documented By: SANDRA Metoclopramide HCl (Metoclopramide Hcl 10 Mg Tablet) 10 mg PO TID DOREEN Stop: 06/05/24 21:59 Last Admin: 05/06/24 23:35 Dose: 10 mg Documented By: SANDRA Pantoprazole Sodium (Pantoprazole 40 Mg Tab) 40 mg PO QPM DOREEN Stop: 06/05/24 21:59 Last Admin: 05/06/24 23:35 Dose: 40 mg Documented By: SANDRA Sodium Chloride (Sodium Chloride 1 Gm Tablet) 1 gm PO BID DOREEN Stop: 06/05/24 21:59 Last Admin: 05/06/24 23:35 Dose: 1 gm Documented By: SANDRA Discontinued Medications Diphenhydramine HCl (Diphenhydramine 50 Mg/Ml Vial) 50 mg IV ONE ONE Stop: 05/06/24 15:00 Last Admin: 05/06/24 15:05 Dose: 50 mg Documented By: DANIEL Hydromorphone HCl (Hydromorphone Inj 0.5 Mg/0.5 Ml Syr) 0.5 mg IV NOW STA Stop: 05/06/24 15:03 Last Admin: 05/06/24 15:06 Dose: 0.5 mg Documented By: DANIEL Hydromorphone HCl (Hydromorphone Inj 0.5 Mg/0.5 Ml Syr) 0.5 mg IV NOW STA Stop: 05/06/24 20:23 Last Admin: 05/06/24 20:43 Dose: 0.5 mg Documented By: KATE Ioversol (Optiray 320 100ml) 94 ml IV ONCE ONE Stop: 05/06/24 15:33 Last Admin: 05/06/24 15:33 Dose: 94 ml Documented By: SISSY Methylprednisolone (Methylprednisolone 125 Mg/2 Ml Vial) 40 mg IV NOW ONE Stop: 05/06/24 15:00 Last Admin: 05/06/24 15:06 Dose: 40 mg Documented By: DANIEL Imaging Data Radiologist's Impression: Abdomen/Pelvis CT 05/06/24 14:59 CT OF THE ABDOMEN AND PELVIS WITH CONTRAST CLINICAL HISTORY: Trauma, pelvic fx COMPARISON STUDY: CT of the abdomen and pelvis January 22, 2024. Pelvis and left hip radiographs performed earlier today. TECHNIQUE: Following IV administration of 94 mL of Optiray, axial images of the abdomen and pelvis were obtained from the lung bases to the proximal femurs. Images were reviewed in the axial, sagittal, and coronal planes. IV contrast was administered without complication. Automated exposure control was utilized for the study. A dose lowering technique was utilized adhering to the principles of ALARA. CT DOSE: 1741.42 mGy.cm FINDINGS: No hemoperitoneum or pneumoperitoneum is present. There is moderate cardiomegaly with a small pericardial effusion, similar to prior exam. There is interlobular septal thickening within the lung bases. No evidence for traumatic injury to the liver, spleen, adrenal glands, kidneys or pancreas. A low- attenuation right adrenal nodule is unchanged. This is benign. Hypodense hepatic lesions are likely benign. Left adrenal gland and pancreas are unremarkable. There is no biliary or pancreatic ductal dilatation. Caliber and wall thickness of small and large bowel are normal. Colonic diverticulosis. No evidence for acute diverticulitis. There is extensive aortoiliac atherosclerotic plaque. Blad selene is distended. No acute lumbar spine fracture is present. There is an acute nondisplaced left sacral ala fracture as well as acute mildly displaced fracture of the left superior pubic ramus extending to the symphysis pubis. There is an acute nondisplaced left inferior pubic ramus fracture. There is a small amount of adjacent hemorrhage, including intramuscular hemorrhage within the left obturator muscles. There is no active extravasation. No additional sites of hemorrhage are present. No proximal femoral fractures. IMPRESSION: 1. No evidence for traumatic injury to the solid abdominal viscera. 2. Acute left superior and inferior rami fractures. Small amount of adjacent extraperitoneal/intramuscular hemorrhage. No active extravasation. No proximal femoral fractures. 3. Cardiomegaly with a small pericardial effusion, unchanged. Interlobular septal thickening suggestive of mild pulmonary edema. ACT 112: Negative or not required by law. Electronically signed by: Dean Vasquez M.D. 05/06/2024 3:59 PM Chest X-Ray 05/06/24 14:59 XR chest 1V portable CLINICAL HISTORY: trauma TECHNIQUE: Single frontal radiograph of the chest was obtained. Comparison: Comparison is made to chest radiograph 04/26/2024 FINDINGS: An implanted pacemaker is seen. Cardiomegaly is noted. The aortic arch is calcified. Reticular interstitial opacities are seen. No evidence of pleural effusion or pneumothorax. IMPRESSION: No acute chest disease. ACT 112: Negative or not required by law. Electronically signed by: Gagandeep Fernandez M.D. 05/06/2024 4:48 PM Hip/Pelvis X-Ray 05/06/24 14:59 XR hip LT 2V w pelvis CLINICAL HISTORY: hip/pelvic pain after fall TECHNIQUE: 2 views of the right hip and single frontal view of the pelvis were obtained. Comparison: None available at the time of this dictation. FINDINGS: There is no evidence of an acute fracture. Degenerative changes are seen in the hip joint. Vascular calcifications are noted. IMPRESSION: Degenerative changes without evidence of acute abnormality. ACT 112: Negative or not required by law. Electronically signed by: Gagandeep Fernandez M.D. 05/06/2024 3:17 PM Shoulder X-Ray 05/06/24 14:59 XR shoulder LT min 2V routine HISTORY: 74 years-old Female Shoulder pain after fall acute left shoulder pain status post fall COMPARISON: Chest x-ray 04/26/2024 TECHNIQUE: 3 views of the left shoulder FINDINGS: Cardiomegaly with left atrial exclusion device. Left subclavian pacer. Cortical irregularity of the distal clavicle is noted superiorly. No acute displaced fracture or dislocation. The glenohumeral joint appears preserved. IMPRESSION: Findings suggestive of a subtle acute distal clavicular fracture without significant displacement. Correlate with point tenderness. ACT 112: Negative or not required by law. The above report was generated using voice recognition software. It may contain grammatical, syntax or spelling errors. Electronically signed by: Maxwell Romero M.D. 05/06/2024 3:[address] 05/06/24 15:20 CT OF THE CERVICAL SPINE WITHOUT CONTRAST CLINICAL HISTORY: fall trauma alert COMPARISON STUDY: Cervical spine radiograph April 22, 2018. CTA of the neck April 26, 2024. TECHNIQUE: Helical axial images of the cervical spine were obtained without IV contrast. Sagittal and coronal reconstructions were viewed. Automated exposure control was utilized for the study. A dose lowering technique was utilized adhering to the principles of ALARA. FINDINGS: Alignment of the cervical spine is anatomic. Vertebral body heights are maintained. No acute cervical spine fracture or subluxation is present. There is no prevertebral edema. Facet joints are intact. This exam is mildly compromised by artifact. Mild multilevel degenerative changes within the cervical spine are present. IMPRESSION: No acute cervical spine fracture or subluxation. ACT 112: Negative or not required by law. Electronically signed by: Dean Vasquez M.D. 05/06/2024 3:[address] 05/06/24 15:20 CT head/brain wo con CLINICAL HISTORY: 74 years-old Female with Fall, trauma alert. Acute head trauma status post fall TECHNIQUE: Multiple axial CT images of the head were obtained without contrast. A dose lowering technique was utilized adhering to the principles of ALARA. COMPARISON: CT cervical spine of same day, brain MRI 04/30/2024, head CT 04/26/2024 FINDINGS: No acute intracranial hemorrhage, midline shift, intracranial mass, hydrocephalus, territorial ischemia or abnormal extra-axial collection. Involutional changes with chronic microvascular ischemic disease. Chronic left parieto-occipital infarct with encephalomalacia. Ex vacuo ventriculomegaly of the atria and posterior horn left lateral ventricle. Additional chronic lacunar infarcts in the right frontal lobe haji radiata and lentiform nucleus. Cerebral vascular calcifications. The calvarium is intact. Minimal mucosal thickening of the dependent right maxillary sinus. Mastoid air cells are generally clear. IMPRESSION: 1. No acute intracranial abnormality identified. 2. Chronic left parieto-occipital infarct. 3. Involutional changes with chronic microvascular ischemic disease. ACT 112: Negative or not required by law. The above report was generated using voice recognition software. It may contain grammatical, syntax or spelling errors. Electronically signed by: Maxwell Romero M.D. 05/06/2024 3:54 PM Discharge Plan Visit Data Chief Complaint: Trauma ED Provider: Anali Foley Discharge Problem: Fracture of inferior pubic ramus, Closed fracture of superior pubic ramus, Clavicle fracture Patient Disposition: Admitted As Inpatient Discharge Instructions Interventions: ED Discharge Assessment Last Done: 05/06/24 21:15
--- NOTE | 2024-05-06 15:23 | XRay Report ---
XR shoulder LT min 2V routine HISTORY: 74 years-old Female Shoulder pain after fall acute left shoulder pain status post fall COMPARISON: Chest x-ray 04/26/2024 TECHNIQUE: 3 views of the left shoulder FINDINGS: Cardiomegaly with left atrial exclusion device. Left subclavian pacer. Cortical irregularity of the d istal clavicle is noted superiorly. No acute displaced fracture or dislocation. The glenohumeral join t appears preserved. IMPRESSION: Findings suggestive of a subtle acute distal clavicular fracture without significant disp lacement. Correlate with point tenderness. ACT 112: Negative or not required by law. The above report was generated using voice recognition software. It may contain grammatical, syntax o r spelling errors. Electronically signed by: Maxwell Romero M.D. 05/06/2024 3:22 PM
[2024-05-06] MEDS: OPTIRAY 320 100ml IV ONE (15:33)
--- NOTE | 2024-05-06 15:49 | CT Scan Report ---
CT OF THE CERVICAL SPINE WITHOUT CONTRAST CLINICAL HISTORY: fall trauma alert COMPARISON STUDY: Cervical spine radiograph April 22, 2018. CTA of the neck April 26, 2024. TECHNIQUE: Helical axial images of the cervical spine were obtained without IV contrast. Sagittal a nd coronal reconstructions were viewed. Automated exposure control was utilized for the study. A do se lowering technique was utilized adhering to the principles of ALARA. FINDINGS: Alignment of the cervical spine is anatomic. Vertebral body heights are maintained. No acut e cervical spine fracture or subluxation is present. There is no prevertebral edema. Facet joints are intact. This exam is mildly compromised by artifact. Mild multilevel degenerative changes within th e cervical spine are present. IMPRESSION: No acute cervical spine fracture or subluxation. ACT 112: Negative or not required by law. Electronically signed by: Dean Vasquez M.D. 05/06/2024 3:47 PM
--- NOTE | 2024-05-06 15:56 | CT Scan Report ---
CT head/brain wo con CLINICAL HISTORY: 74 years-old Female with Fall, trauma alert. Acute head trauma status post fall TECHNIQUE: Multiple axial CT images of the head were obtained without contrast. A dose lowering tech nique was utilized adhering to the principles of ALARA. COMPARISON: CT cervical spine of same day, brain MRI 04/30/2024, head CT 04/26/2024 FINDINGS: No acute intracranial hemorrhage, midline shift, intracranial mass, hydrocephalus, territorial ischem ia or abnormal extra-axial collection. Involutional changes with chronic microvascular ischemic disea se. Chronic left parieto-occipital infarct with encephalomalacia. Ex vacuo ventriculomegaly of the at chuck and posterior horn left lateral ventricle. Additional chronic lacunar infarcts in the right front al lobe haji radiata and lentiform nucleus. Cerebral vascular calcifications. The calvarium is inta ct. Minimal mucosal thickening of the dependent right maxillary sinus. Mastoid air cells are generall y clear. IMPRESSION: 1. No acute intracranial abnormality identified. 2. Chronic left parieto-occipital infarct. 3. Involutional changes with chronic microvascular ischemic disease. ACT 112: Negative or not required by law. The above report was generated using voice recognition software. It may contain grammatical, syntax o r spelling errors. Electronically signed by: Maxwell Romero M.D. 05/06/2024 3:54 PM
--- NOTE | 2024-05-06 16:02 | CT Scan Report ---
CT OF THE ABDOMEN AND PELVIS WITH CONTRAST CLINICAL HISTORY: Trauma, pelvic fx COMPARISON STUDY: CT of the abdomen and pelvis January 22, 2024. Pelvis and left hip radiographs perfor med earlier today. TECHNIQUE: Following IV administration of 94 mL of Optiray, axial images of the abdomen and pelvis we re obtained from the lung bases to the proximal femurs. Images were reviewed in the axial, sagittal, and coronal planes. IV contrast was administered without complication. Automated exposure control wa s utilized for the study. A dose lowering technique was utilized adhering to the principles of ALARA . CT DOSE: 1741.42 mGy.cm FINDINGS: No hemoperitoneum or pneumoperitoneum is present. There is moderate cardiomegaly with a sma ll pericardial effusion, similar to prior exam. There is interlobular septal thickening within the gabriela ng bases. No evidence for traumatic injury to the liver, spleen, adrenal glands, kidneys or pancreas. A low-attenuation right adrenal nodule is unchanged. This is benign. Hypodense hepatic lesions are l ikely benign. Left adrenal gland and pancreas are unremarkable. There is no biliary or pancreatic neo sherrie dilatation. Caliber and wall thickness of small and large bowel are normal. Colonic diverticulosi s. No evidence for acute diverticulitis. There is extensive aortoiliac atherosclerotic plaque. Bladde r is distended. No acute lumbar spine fracture is present. There is an acute nondisplaced left sacral ala fracture as well as acute mildly displaced fracture of the left superior pubic ramus extending t o the symphysis pubis. There is an acute nondisplaced left inferior pubic ramus fracture. There is a small amount of adjacent hemorrhage, including intramuscular hemorrhage within the left obturator mus cles. There is no active extravasation. No additional sites of hemorrhage are present. No proximal fe moral fractures. IMPRESSION: 1. No evidence for traumatic injury to the solid abdominal viscera. 2. Acute left superior and inferior rami fractures. Small amount of adjacent extraperitoneal/intramus cular hemorrhage. No active extravasation. No proximal femoral fractures. 3. Cardiomegaly with a small pericardial effusion, unchanged. Interlobular septal thickening suggesti ve of mild pulmonary edema. ACT 112: Negative or not required by law. Electronically signed by: Dean Vasquez M.D. 05/06/2024 3:59 PM
--- NOTE | 2024-05-06 16:49 | XRay Report ---
XR chest 1V portable CLINICAL HISTORY: trauma TECHNIQUE: Single frontal radiograph of the chest was obtained. Comparison: Comparison is made to chest radiograph 04/26/2024 FINDINGS: An implanted pacemaker is seen. Cardiomegaly is noted. The aortic arch is calcified. Reticular inters titial opacities are seen. No evidence of pleural effusion or pneumothorax. IMPRESSION: No acute chest disease. ACT 112: Negative or not required by law. Electronically signed by: Gagandeep Fernandez M.D. 05/06/2024 4:48 PM
--- NOTE | 2024-05-06 17:51 | History & Physical Report ---
Date of Service May 06, 2024 Assessment & Plan (1) Fall: Plan: Patient sustained a witnessed GLF on the afternoon of 05/06 after tripping on her chair; no LOC; no head strike; landed on her left side Head/cervical spine CT without acute findings Distal clavicular fracture and superior/inferior pubic ramus fracture on arrival Trauma alert / PCU status Hgb 13.6 on arrival Trend H&H Orthopedic consult appreciated Acetaminophen and Dilaudid as needed for pain Gentle IVF with LR at 100mL/hr x 2 L Will make patient NPO at midnight A.m. CBC, BMP (2) Fracture of superior pubic ramus: Plan: A/P CT revealed acute left superior and inferior rami fractures; no active extravasation Activity: Bedrest Pain management (as above) (3) Closed fracture of distal clavicle: Plan: Left shoulder x-ray on arrival suggestive of acute distal clavicular fracture without significant displacement Sling application/immobilization Pain management (as above) (4) Obstructive sleep apnea: Plan: CPAP at bedtime Plan Disposition: Admit to PCU telemetry Full code Heart healthy diet (n.p.o. at midnight until seen by orthopedics) VTE PPx: Hold chemical DVT PX in the setting of acute trauma for 24 hours; SCDs History of Present Illness Chief Complaint: Trauma Primary Care Provider: Becky Tavarez MD Danielle is a 74-year-old female with PMH of JG, carcinoid syndrome, HTN, SIADH, COPD, FSH, CVA, atrial fibrillation, and osteoporosis. She presented via EMS on 05/06 for a fall. Patient stood up from her chair, tripped, and landed on her left shoulder/hip. No LOC. No head strike. Patient reports that she stood up when her physical therapist came in, and she tripped on her chair. This fall was witnessed by physical therapy. On arrival, patient endorses left hip and left shoulder pain; 8/10 at worst, 4/10 when lying still. She characterizes it as a "throbbing" pain; no radiation. Patient did not take pain medicine before coming into the ED. She took her regular morning medication and lodgment 10 medications. Only recent change in medication is that she was discontinued on escitalopram. She also is completing a course of vancomycin 125 mg p.o. daily for history of C. difficile. She denies any history of falls or injuries, and reports she has never fallen before. She does not ambulate with a walker or cane at baseline. She is not on supplemental oxygen at baseline; she does use a CPAP at night, but did not bring hers in. Patient endorses SOB at rest after receiving pain medicine in the ED, but notes this is starting to resolve after receiving supplemental oxygen. Patient also recently completed course of antibiotics for UTI; this course was completed 3 days ago. She is a former tobacco cigarette smoker but quit 10 years ago; she endorses occasional alcohol use; wine. Patient is hypertensive at 171/100 at time of admission; SpO2 93% on 2L NC. ED course: Benadryl 50 mg IV Solu-Medrol 40 mg IV Dilaudid 0.5 mg IV ROS: Patient endorses left shoulder pain, left hip pain, and SOB at rest (after receiving pain medicine in the ED). Patient denies fever, chills, night-sweats, dizziness/lightheadedness, PHILLIPS, chest pain, chest palpitations, pleuritic CP, cough, hemoptysis, abdominal pain, N/V/D, changes in urinary/bowel habits, saddle anesthesia, or numbness/tingling in the arms or legs. Allergies Allergy/AdvReac Type Severity Reaction Status Date / Time Iodinated Contrast Media Allergy Intermediate Hives Verified 04/26/24 13:07 mold Allergy Intermediate SNEEZING/CO Verified 04/26/24 13:07 NGESTION moxifloxacin [From Avelox] Allergy Intermediate ITCHING/YEAST Verified 04/26/24 13:07 INFECTION Tetracyclines Allergy Intermediate ? ITCH ALL Verified 04/26/24 13:07 OVER, PT NOT SURE adhesive Allergy Mild ITCHY RASH Verified 04/26/24 13:07 Penicillins Allergy Rash Verified 04/26/24 13:07 Sulfa (Sulfonamide Allergy Swelling Verified 04/26/24 13:07 Antibiotics) of Lip/Tongue/Throat amlodipine AdvReac Intermediate FATIGUE/CON Verified 04/26/24 13:07 STIPATION cefuroxime AdvReac Intermediate CAUSED C. Verified 04/26/24 13:07 DIFF INFECTION Home Medications Medication Instructions Recorded Confirmed Type acetaminophen 500 mg tablet 500 mg PO Q6H PRN Pain 01/30/19 05/06/24 History (Tylenol Extra Strength) cetirizine 10 mg capsule (Zyrtec) 10 mg PO DAILY PRN Allergy Symptoms 09/10/19 05/06/24 History fluticasone propionate 50 2 spray intranasal DAILY PRN 04/13/22 05/06/24 History mcg/actuation nasal Allergy Symptoms spray,suspension (Flonase Allergy Relief) clopidogrel 75 mg tablet 75 mg PO QAM 09/12/22 05/06/24 History metoclopramide HCl 10 mg tablet 10 mg PO TID 10/04/22 05/06/24 History albuterol sulfate 90 mcg/actuation 2 puff inhalation Q4H PRN 10/25/22 05/06/24 Rx aerosol inhaler (Ventolin HFA) Shortness Of Breath #3 Inhalers denosumab 60 mg/mL subcutaneous 60 mg subcut Q6MO 02/07/23 05/06/24 History syringe (Prolia) esomeprazole magnesium 40 mg 40 mg PO QPM #90 caps 03/12/23 05/06/24 Rx capsule,delayed release fluticasone fur. 100 mcg-umeclid 1 inh inhalation DAILY #3 Inhalers 12/25/23 05/06/24 Rx 62.5 mcg-vilant 25 mcg inhalat.powder (Trelegy Ellipta) aspirin 81 mg chewable tablet 81 mg PO DAILY 02/07/24 05/06/24 History levetiracetam 500 mg tablet 500 mg PO BID 02/07/24 05/06/24 History (Keppra) losartan 50 mg tablet 50 mg PO BID 02/07/24 05/06/24 History multivitamin 1 tab PO QAM 02/07/24 05/06/24 History tramadol 50 mg tablet 50 mg PO Q4H PRN Pain 02/07/24 05/06/24 History folic acid 1 mg tablet 1 mg PO BID 04/26/24 05/06/24 History hydralazine 50 mg tablet 50 mg PO TID 04/26/24 05/06/24 History sodium chloride 1,000 mg soluble 1,000 mg PO BID #60 tabs 04/30/24 05/06/24 Rx tablet vancomycin 125 mg capsule 125 mg PO DAILY #10 caps 04/30/24 05/06/24 Rx Past Med/Surg History Problem List (Updated 05/06/24 @ 17:56 by Armin Sanford PA-C) Fall Closed fracture of distal clavicle Fracture of superior pubic ramus UTI (urinary tract infection) Stroke-like symptoms (Acute) Osteoporosis Presence of Watchman left atrial appendage closure device Paroxysmal atrial fibrillation Effusion, pericardium (Acute) Atrial fibrillation with rapid ventricular response (Acute) CVA (cerebral vascular accident) GERD (gastroesophageal reflux disease) Hyperlipidemia Ischemic cerebrovascular accident (CVA) FSH (facioscapulohumeral muscular dystrophy) COPD (chronic obstructive pulmonary disease) SIADH (syndrome of inappropriate ADH production) HTN (hypertension) Prediabetes (Chronic) Dysphagia (Acute) Liver lesion, right lobe (Acute) LVH (left ventricular hypertrophy) Diastolic dysfunction Tremor Carcinoid syndrome Hypoglycemia Obstructive sleep apnea Medical History Subarachnoid hemorrhage Acute intracerebral hemorrhage Shoulder pain, right Former smoker IBS (irritable bowel syndrome) Vitamin D deficiency History of small bowel obstruction (~2013) History of colon polyps History of skin cancer Antibiotic-induced yeast infection Seasonal allergies Lung nodules Adrenal adenoma Carcinoid tumor of colon History of claustrophobia Nasal cavity polyp Mild obstructive sleep apnea Chronic rhinitis Langerhans cell histiocytosis Gastroparesis GERD (gastroesophageal reflux disease) Surgical History History of surgery History of Mohs micrographic surgery for skin cancer History of lung biopsy H/O hysterectomy with oophorectomy S/P thoracotomy Hx of exploratory laparotomy S/P appendectomy H/O: hysterectomy Family History Father Myocardial infarction Hypertension Mother Congestive heart failure Hypertension Grandfather (Paternal) Myocardial infarction Grandfather (Maternal) Myocardial infarction Grandmother Colorectal cancer Other Atrial fibrillation Family history of diabetes mellitus Social History Smoking Status: Former smoker Tobacco Type: Cigarettes Age Started Using Tobacco: 16; Age Quit Using Tobacco: 63; packs per day: 0.75; Second Hand Exposure: No; Do You Dip or Chew Tobacco: No; Hx Alcohol Use: Yes Alcohol type: wine Hx Substance Use: No Preferred Language: Mauritian Communication Ability: Effective Machine Featheredger And Reducer Required: Voice Beliefs That Will Affect Care: Yarsani marital status: Current Living Situation: Spouse current occupational status: retired Feels Safe at Home: Yes Seatbelt Use: always Sunscreen Use: Yes Assistive Devices: CPAP and Walker Review of Systems Review of Systems: See HPI above Physical Exam Physical Exam: General: Moderate physical distress; anxious; at bedside; non-toxic appearing; fragile appearing; cooperative; SpO2 92% on 2L NC HEENT: normocephalic, atraumatic; no scleral icterus; PERRLA; vision and hearing intact Neck: supple; no lymphadenopathy; trachea midline; distal left clavicular fracture with mild contusion noted on the superior chest wall Skin: warm, dry without signs of tenting; no cyanosis; no rashes, bruising, lesions, or erythema noted CV: chest wall NTP; RRR; S1/S2 normal; no murmurs/rubs/gallops; pulses intact and symmetric at radial, DP, and PT Lungs: no acute respiratory distress; symmetrical chest wall expansion; clear breath sounds across all lung kinsey w/o adventitious sounds; no wheezing ABD: Soft, NTP in 4 quadrants; right hip is NTP; BS present; no rebound/guarding; no distention MSK: no tics or fasciculations; no edema noted in the LEs b/l, nonerythematous; 5/5 cnc set up operator strength bilaterally; patient demonstrates ability to wiggle toes/plantarflex/dorsiflex against with equal 5/5 strength Neuro: A&Ox3; normal mood and affect; fluent speech; no focal deficits; sensation intact and symmetric in the upper extremities and lower extremities bilaterally assessed via light touch Results & Data Results & Data Vital Signs (Past 12 Hours) Vital Signs Temp Pulse Pulse Resp BP BP Pulse Ox 05/06/24 16:25 79 18 171/100 H 93 05/06/24 16:02 73 21 171/100 H 93 05/06/24 16:00 87 L 05/06/24 15:36 78 18 94 05/06/24 15:32 169/98 H 05/06/24 15:09 84 19 96 05/06/24 14:44 86 05/06/24 14:25 36.7 C 90 17 206/103 H 94 05/06/24 14:25 36.7 C 90 17 206/103 H 94 05/06/24 14:25 36.7 C 90 17 206/103 H 94 O2 Del Method O2 Flow Rate 05/06/24 16:25 05/06/24 16:02 Nasal Cannula 2 05/06/24 16:00 Nasal Cannula 0 05/06/24 15:36 Room Air 05/06/24 15:32 05/06/24 15:09 Room Air 05/06/24 14:44 05/06/24 14:25 Room Air 05/06/24 14:25 Room Air 05/06/24 14:25 Room Air 0 Laboratory Results Abnormal lab results 05/06/24 Range/Units 15:01 POC Total CO2 21 L (24-31) mmol/L POC Glucose (other) 102 H (70-99) mg/dl Diagnostic Findings Abdomen/Pelvis CT 05/06/24 14:59 CT OF THE ABDOMEN AND PELVIS WITH CONTRAST CLINICAL HISTORY: Trauma, pelvic fx COMPARISON STUDY: CT of the abdomen and pelvis January 22, 2024. Pelvis and left hip radiographs performed earlier today. TECHNIQUE: Following IV administration of 94 mL of Optiray, axial images of the abdomen and pelvis were obtained from the lung bases to the proximal femurs. Images were reviewed in the axial, sagittal, and coronal planes. IV contrast was administered without complication. Automated exposure control was utilized for the study. A dose lowering technique was utilized adhering to the principles of ALARA. CT DOSE: 1741.42 mGy.cm FINDINGS: No hemoperitoneum or pneumoperitoneum is present. There is moderate cardiomegaly with a small pericardial effusion, similar to prior exam. There is interlobular septal thickening within the lung bases. No evidence for traumatic injury to the liver, spleen, adrenal glands, kidneys or pancreas. A low- attenuation right adrenal nodule is unchanged. This is benign. Hypodense hepatic lesions are likely benign. Left adrenal gland and pancreas are unremarkable. There is no biliary or pancreatic ductal dilatation. Caliber and wall thickness of small and large bowel are normal. Colonic diverticulosis. No evidence for acute diverticulitis. There is extensive aortoiliac atherosclerotic plaque. Bladder is distended. No acute lumbar spine fracture is present. There is an acute nondisplaced left sacral ala fracture as well as acute mildly displaced fracture of the left superior pubic ramus extending to the symphysis pubis. There is an acute nondisplaced left inferior pubic ramus fracture. There is a small amount of adjacent hemorrhage, including intramuscular hemorrhage within the left obturator muscles. There is no active extravasation. No additional sites of hemorrhage are present. No proximal femoral fractures. IMPRESSION: 1. No evidence for traumatic injury to the solid abdominal viscera. 2. Acute left superior and inferior rami fractures. Small amount of adjacent extraperitoneal/intramuscular hemorrhage. No active extravasation. No proximal femoral fractures. 3. Cardiomegaly with a small pericardial effusion, unchanged. Interlobular septal thickening suggestive of mild pulmonary edema. ACT 112: Negative or not required by law. Electronically signed by: Dean Vasquez M.D. 05/06/2024 3:59 PM Chest X-Ray 05/06/24 14:59 XR chest 1V portable CLINICAL HISTORY: trauma TECHNIQUE: Single frontal radiograph of the chest was obtained. Comparison: Comparison is made to chest radiograph 04/26/2024 FINDINGS: An implanted pacemaker is seen. Cardiomegaly is noted. The aortic arch is calcified. Reticular interstitial opacities are seen. No evidence of pleural effusion or pneumothorax. IMPRESSION: No acute chest disease. ACT 112: Negative or not required by law. Electronically signed by: Gagandeep Fernandez M.D. 05/06/2024 4:48 PM Hip/Pelvis X-Ray 05/06/24 14:59 XR hip LT 2V w pelvis CLINICAL HISTORY: hip/pelvic pain after fall TECHNIQUE: 2 views of the right hip and single frontal view of the pelvis were obtained. Comparison: None available at the time of this dictation. FINDINGS: There is no evidence of an acute fracture. Degenerative changes are seen in the hip joint. Vascular calcifications are noted. IMPRESSION: Degenerative changes without evidence of acute abnormality. ACT 112: Negative or not required by law. Electronically signed by: Gagandeep Fernandez M.D. 05/06/2024 3:17 PM Shoulder X-Ray 05/06/24 14:59 XR shoulder LT min 2V routine HISTORY: 74 years-old Female Shoulder pain after fall acute left shoulder pain status post fall COMPARISON: Chest x-ray 04/26/2024 TECHNIQUE: 3 views of the left shoulder FINDINGS: Cardiomegaly with left atrial exclusion device. Left subclavian pacer. Cortical irregularity of the distal clavicle is noted superiorly. No acute displaced fracture or dislocation. The glenohumeral joint appears preserved. IMPRESSION: Findings suggestive of a subtle acute distal clavicular fracture without significant displacement. Correlate with point tenderness. ACT 112: Negative or not required by law. The above report was generated using voice recognition software. It may contain grammatical, syntax or spelling errors. Electronically signed by: Maxwell Romero M.D. 05/06/2024 3:[address] 05/06/24 15:20 CT OF THE CERVICAL SPINE WITHOUT CONTRAST CLINICAL HISTORY: fall trauma alert COMPARISON STUDY: Cervical spine radiograph April 22, 2018. CTA of the neck April 26, 2024. TECHNIQUE: Helical axial images of the cervical spine were obtained without IV contrast. Sagittal and coronal reconstructions were viewed. Automated exposure control was utilized for the study. A dose lowering technique was utilized adhering to the principles of ALARA. FINDINGS: Alignment of the cervical spine is anatomic. Vertebral body heights are maintained. No acute cervical spine fracture or subluxation is present. There is no prevertebral edema. Facet joints are intact. This exam is mildly compromised by artifact. Mild multilevel degenerative changes within the cervical spine are present. IMPRESSION: No acute cervical spine fracture or subluxation. ACT 112: Negative or not required by law. Electronically signed by: Dean Vasquez M.D. 05/06/2024 3:[address] 05/06/24 15:20 CT head/brain wo con CLINICAL HISTORY: 74 years-old Female with Fall, trauma alert. Acute head trauma status post fall TECHNIQUE: Multiple axial CT images of the head were obtained without contrast. A dose lowering technique was utilized adhering to the principles of ALARA. COMPARISON: CT cervical spine of same day, brain MRI 04/30/2024, head CT 04/26/2024 FINDINGS: No acute intracranial hemorrhage, midline shift, intracranial mass, hydrocephalus, territorial ischemia or abnormal extra-axial collection. Involutional changes with chronic microvascular ischemic disease. Chronic left parieto-occipital infarct with encephalomalacia. Ex vacuo ventriculomegaly of the atria and posterior horn left lateral ventricle. Additional chronic lacunar infarcts in the right frontal lobe haji radiata and lentiform nucleus. Cerebral vascular calcifications. The calvarium is intact. Minimal mucosal thickening of the dependent right maxillary sinus. Mastoid air cells are generally clear. IMPRESSION: 1. No acute intracranial abnormality identified. 2. Chronic left parieto-occipital infarct. 3. Involutional changes with chronic microvascular ischemic disease. ACT 112: Negative or not required by law. The above report was generated using voice recognition software. It may contain grammatical, syntax or spelling errors. Electronically signed by: Maxwell Romero M.D. 05/06/2024 3:54 PM Code Status & VTE Plan Code Status Full code (discussed with both patient and patient's /POA at the bedside; does note that she had a DNR order and a prior living well, however, she reports that she wants to be full code and agrees; she was also listed as a full code when she came in at the end of April and stated similar) VTE Prophylaxis Plan VTE Prophylaxis will be ordered: Yes Supervising Physician Co-Signing Physician Notes Patient seen and examined, chart reviewed, case discussed with Armin Sanford PA-C and I agree with the assessment and plan as above except as otherwise noted Labs and images reviewed 74-year-old female with a past medical history of sleep apnea, hypertension, SIADH, COPD, A-fib not on anticoagulation, and osteoporosis who presented after she attempted to stand and fell backwards after her chair tipped over. No loss consciousness. No presyncopal symptoms, chest pain, chest pressure or dizziness or contributed to her fall. She did sustain a clavicle fracture for which Ortho was consulted and sling has been ordered, 1 additional x-ray review pending per orthopedic request. She also has a acute nondisplaced left sacral alexandra fracture and mildly displaced fracture of left superior pubic ramus extending to the symphysis with a small amount of adjacent hemorrhage including intramuscular hemorrhage within the left obturator muscles. This was specifically reviewed with orthopedics/ER, expected given fractures and with no active extravasation noted on contrasted study. She is not on anticoagulation. H&H trended. Placed on PCU for monitoring. No tachycardia on assessment. She is seen at the bedside and reports she overall feels okay but pain remains 7/10 in her pelvis and proximal hips bilaterally. No chest pain or chest pressure. Agree with above. PG Care Time/CCT Total # of Minutes Spent Total Time Spent with Patient: Total time spent is greater than 50% in coordination of care (as documented) at patient's floor/unit and/or counseling patient: Coding [place] [address] INT INP/OBS CARE 3/75MIN Patient Type Established Medical Decision Making High Complexity Diagnoses Fall W19.XXXA Fracture of superior pubic ramus S32.519A Closed fracture of distal clavicle S42.033A Obstructive sleep apnea G47.33
[2024-05-06] MEDS: LACTATED RINGER'S 1,000 ML IV SCH (20:42)
[2024-05-06] MEDS ORDERED: ACETAMINOPHEN 325 MG TAB PO PRN (22:00)
[2024-05-06] MEDS ORDERED: ALBUTEROL HFA 8 GM INHALER INH PRN (22:00)
[2024-05-06] MEDS ORDERED: HYDROmorphone INJ 1 MG/ML SYRINGE IV PRN (22:00)
[2024-05-06] MEDS ORDERED: ONDANSETRON INJ 2 MG/ML 2 ML VIAL IV PRN (22:00)
[2024-05-06] MEDS: SODIUM CHLORIDE 1 GM TABLET PO SCH (23:35)
[2024-05-06] MEDS: METOCLOPRAMIDE HCL 10 MG TABLET PO SCH (23:35)
[2024-05-06] MEDS: LOSARTAN POTASSIUM 50 MG TAB PO SCH (23:35)
[2024-05-06] MEDS: levETIRAcetam 500 MG TAB PO SCH (23:35)
[2024-05-06] MEDS: FOLIC ACID 1 MG TAB PO SCH (23:35)
[2024-05-06] MEDS: PANTOprazole 40 MG TAB PO SCH (23:35)
[2024-05-06] MEDS: hydrALAZINE TAB 50 MG TAB PO SCH (23:36)
[2024-05-06] MEDS: HYDROmorphone INJ 0.5 MG/0.5 ML SYR IV PRN (23:40)
--- OUTSIDE RECORDS SUMMARY | 2024-05-07 07:13 | External Medical Summary | Summary of Care ---
Author Name Unknown Organization [facility] Address [address] [place] [address] Phone [phone] Care Team Providers Care Restrictive Preparation Operator Name Role Phone Becky Tavarez MD Primary Care Provider [phone] Reason for Visit * Reason Onset Date Comments Follow Up Medication Administration 04/15/2024 Flu an d/or Pneumo Inj Encounter Details Date Type Department Care Team (Latest Contact Info) Description 04/15/2024 12:00 PM EDT Office Visit Cardiology, [facility] [address], [place] [id number] Laura Ledezma CRNP [address] [place] [address] Need for prophylactic vaccination and inoculation against influenza*; PAF (paroxysmal atrial fibrillation) (HCC); H/O atrioventricular martell ablation; Presence of cardiac pacemaker Allergies Active Allergy Reactions Criticality Noted Date [...] as of this encounter (statuses as of 04/30/2024) Medications Medication Sig Dispensed Refills Start Date End Date Status REGLAN 10 MG PO TABS 1 tab 3 times a day Active Esomeprazole Magnesium 40 MG CPDR Take 1 Capsule by mouth daily before breakfast. 06/22/2017 Active Ventolin HFA 108 (90 Base) MCG/ACT Inhalation Aerosol Solution as needed. 10/25/2022 Active Fluticasone Propionate 50 MCG/ACT Nasal Suspension (Flonase) Administer 1 [place] into nostril in the morning and 1 [place] before bedtime. 04/13/2022 Active Cetirizine HCl 10 MG Oral Tablet (ZyrTEC Allergy) Take 1 Tablet by mouth in the morning. Active Trelegy Ellipta 100-62.5-25 MCG/ACT Aerosol Powder Breath Activated 09/06/2023 Active Keppra 500 MG Oral Tablet Take 1 Tablet by mouth in the morning and 1 Tablet before bedtime. 11/16/2023 06/10/2024 Active Clopidogrel Bisulfate 75 MG Oral Tablet (pLAVix) Take 1 Tablet by mouth in the morning. 01/30/2024 Active Aspirin 81 MG Oral Tablet Delayed Release (Aspirin 81) Take 1 Tablet by mouth in the morning. Active hydrALAZINE HCl 50 MG Oral Tablet (Apresoline)Marci cations:HTN, goal below 140/90 Take 1 Tablet by mouth in the morning and 1 Tablet at noon and 1 Tablet before bedtime. 270 Tablet 3 02/18/2024 Active Multivitamin Adult Oral Tablet Take 1 Tablet by mouth in the morning. Active Niacin 50 MG Oral Tablet (True Vitamin B3) Take 1 Tablet by mouth in the morning. Active Losartan Potassium 50 MG Oral Tablet (Cozaar) Take 1 Tablet by mouth in the morning and 1 Tablet before bedtime. 12/11/2023 Active traMADol HCl 50 MG Oral Tablet (Ultram) Take 1 Tablet by mouth as needed. 12/11/2023 Active folic acid 100 MCG OR Tablet Take 2 Tablets by mouth in the morning. Active predniSONE 5 MG Oral Tablet (Deltasone)Indic ations:Pericardi al effusion Take 3 pills daily x 3 days then 2 pills daily x 3 days then one pill daily x 3 days then stop 18 Tablet 02/20/2024 04/15/2024 Discontinue d(Patient preference/ discontinua tion) documented as of this encounter (statuses as of 04/30/2024) Active Problems Problem Noted Date Diagnosed Date Allergy to multiple antibiotics 11/01/2018 Cataract of both eyes 11/01/2018 COPD exacerbation 04/19/2015 HTN, goal below 140/90 04/19/2015 Gastroesophageal reflux disease without esophagi tis 04/19/2015 Age-related osteoporosis wit hout current pathological fracture 04/19/2015 documented as of this encounter (statuses as of 04/30/2024) Resolved Problems Problem Noted Date Diagnosed Date Resolved Date Encounter for examination fo r normal comparison and control in clinical research program 10/07/2018 03/08/2020 Overview: DO NOT DELETE [facility] DETECT Study: Project # [id number], Day Care Center Director: Christiano Edwards, PhD. SUMMARY: Goal: Establish test [...] contact study staff at ; after hours Day Care Center Director via the [facility] hospital surfacer operator . Please contact study team before resolving/deleting from patients problem list. Study phone number: [phone]. Diagnosis changed due to Research Module. Go to Snapshot for study details. Encounter for examination fo r normal comparison and control in clinical research program 10/07/2018 04/06/2022 Overview: DO NOT DELETE - [facility] DETECT Study: Project # [id number], Day Care Center Director: Brandin Goyal, MS, MPH. SUMMARY: Goal: Establish [...] contact study staff at ; after hours Day Care Center Director via the [facility] hospital surfacer operator . - Please contact study team before resolving/deleting from patients problem list. Study phone number: [phone]. Diagnosis changed due to Research Module. Go to Snapshot for study details. documented as of this encounter (statuses as of 04/30/2024) Immunizations Name Administration Dates Next Due COVID-19 mRNA, LNP-s, No Pre serve, 2-Dose Series (Moderna) 10/01/2020,09/03/2020 Pneumococcal Polysaccharide PPV23 (Pneumovax) Seasonal Influenza, High Dos e, Trivalent, PF, IM (Fluzone HD) 04/15/2024 Seasonal Influenza, Quadrivalent, No Preserve, P eds 04/20/2018 Seasonal Influenza, Trivalen t, Adjuvanted, 65+ YRS, PF, (Fluad) 03/15/2023 Zoster Vaccine Recombinant (Shingrix) 09/16/2018 documented [...] on file documented as of this encounter Last Filed Vital Signs Vital Sign Reading Time Taken Comments Blood Pressure 122/70 04/15/2024 12:07 PM EDT Pulse 76 04/15/2024 12:07 PM EDT Temperature - - Respiratory Rate 16 04/15/2024 12:07 PM EDT Oxygen Saturation - - Inhaled Oxygen Concentration - - Weight 63.5 kg (140 lb 1.6 oz) 04/15/2024 12:07 PM EDT Height - - Body Mass Index 24.82 09/22/2023 2:06 PM EST documented in this encounter Patient Instructions * Patient Instructions* Cassi Aguayo CMA - 04/15/2024 12:06 PM EDT ~~PATIENT INSTRUCTIONS FOR FLU SHOT~~ Possible side effects of influenza vaccine, (flu shot), are usually mild and include: 1. Soreness or redness at injection site 2. Low grade fever 3. Body aches You may use Tylenol/Acetaminophen as needed for these symptoms. LET YOUR DOCTOR KNOW IMMEDIATELY IF YOU HAVE DIFFICULTY BREATHING OR SWALLOWING, EXPERIENCE ITCHINGOF FEET OR HANDS, HAVE SWELLING OF EYES, FACE OR INSIDE OF NOSE. documented in this encounter Progress Notes * Danielle Steve DO - 04/30/2024 1:58 PM EDT I have reviewed the advanced practitioner's documentation on the date of service referenced in note, and I agree with, and take responsibility for the plan of care. Pt seen in EP f/u after AVN ablation Pt is doing better overall She is still general fatigue but has been hospitalized a lot in the past 4 months so this can take time to recover and get back to prior energy levels Dual ppm Interrogation today Independently performed and interpreted by myself Presenting Rhythm with left bundle pacing Underlying rhythm CHB Battery function good Lead testing RA 3.9mV; 560 ohms; 0.5V @ 0.4ms Left bundle no R waves pt dependent; 510 ohms; 0.75V @ 0.4ms Arrhythmia log Reprogramming Lowered lead out puts today: RA from 3.5V to 1.5V and left bundle from 3.5V to 2.5V Continue with routine device checks No change in cardiac medications Ok to shower ppm incision looks good EP f/u 6 months Danielle Steve DO Department of Cardiology [facility] [place] [address] * Cassi Aguayo CMA - 04/15/2024 12:06 PM EDT PRE - ADMINISTRATION DOCUMENTATION Are you experiencing any cold symptoms or fever? No Have you had Guillain-[place] Syndrome (an illness that causes paralysis) within the last 6 weeks? No Have you had the flu shot in the past? YES Have you ever had a reaction to the flu shot? No Cassi Aguayo CMA, 04/15/2024 12:06 PM Immunization Administration Documentation Time Out Procedure Performed: Yes Patient Identified (Ask Name/Date of ): Yes Does the patient have a fever greater than 101 degrees today? No Patient allergic to latex? No VFC Stock: No Immunization(s) verified: Yes, Immunization Name: Flu, VIS Sheet(s) given: Yes Verified Side and Site: Yes Verified Shot(s) with Parent(s)/Patient: Yes documented in this encounter Nursing Notes * Cassi Aguyao CMA - 04/15/2024 12:05 PM EDT Examination Room: 16 Name: Danielle Pulliam Date of : (1950). Reason for Visit: follow up Interim Hospitalization(s): denies Problems/Concerns: denies Chest Pain/SOB: denies [facility] Discussed: Not applicable [facility] is a way you can talk to your provider online through e-mail. Would you like to sign up? I can activate it for you? YES Patient was instructed to not get up on the exam table until directed and assisted by their provider; patient is to remain seated in the chair/ wheelchair/ exam table for fall prevention and safety reasons. Patient is aware to have assistance to step down off exam table with personnel. Patient voiced full comprehension of instructions. documented in this encounter Plan of Treatment Upcoming Encounters Date Type Department Care Team (Late st Contact Info) Description 10/24/2024 9:00 AM EDT Office Visit Cardiology, [facility] [address] [facility] [place] [address] Laura Ledezma CRNP [address] [place] [id number] Health Maintenance Due Date Last Done Comments Depression Screening 1962 Albumin/Creatinine Ratio 1968 Alpha-1 Antitrypsin 1968 Hepatitis C Screening 1968 DTap/Tdap Vaccines (1 - Tdap) 1969 Mammogram 1990 Cologuard 1995 Colonoscopy 1995 Colorectal Cancer Screening 1995 Fecal Occult Blood Test 1995 Sigmoidoscopy 1995 Lung Cancer Screening 2000 *COPD SEVERITY VERIFIED BY PFT 04/22/2015 *BISPHONATE OR OTHER ACCEPTABLE MEDICATION NEEDED FOR OSTEOPOROSIS (REFER TO SMARTSET #1146) 11/09/2023 COVID-19 Vaccine ( season) 2024 10/24/2023, 06/18/2023, 10/01/2020, Additional history exists DXA Scan 04/11/2024 04/11/2022, 08/07/2019 GFR 11/30/2024 12/01/2023, 11/05, 11/17/2023, Additional history exists O2 ASSESSMENT COMPLETED IN PAST YEAR FOR COPD 01/02/2025 01/03/2024 Lipid Panel 12/22/2026 12/22/2021 Zoster Vaccines Completed 01/10/2019, 09/06, 09/09/2018, Additional history exists Pneumococcal Vaccine: 65+ Years Completed 06/13/2022, 08/06/2013, 08/06/2007 VITAMIN D LEVEL ONCE IN A LIFETIME-USE SMARTSET# [id number] Completed 11/06/2023, 11/07/2022, 12/22/2021, Additional history exists Influenza Vaccine (FLU shot) Completed 05/2024, 03/15/2023, 05/02/2022, Additional history exists HPV (Gardasil) Vaccine Aged Out No lo nger eligible based on patient's age to complete this topic Hepatitis B Vaccine Aged Out No longe r eligible based on patient's age to complete this topic MENINGOCOCCAL (MENACTRA/MENVEO) Aged Out No longer eligible based on patient's age to complete this topic documented as of this encounter Medical Devices Implanted Type Area Corn Grinder Device Identifier Shelf Expiration Date Model / Serial / Lot Lens Intraoc 19.0 - [id number] - [id number] Implanted:Qty: 1 on 01/02/2019 by Davey Tang MD at OR [facility] Left: Eye [employer] 06/05/2023 [id number] / [id number] / Lens Intraoc 21.0 - [id number] - [id number] Implanted:Qty: 1 on 01/21/2019 by Davey Tang MD at OR [facility] Right: Eye [employer] 08/05/2023 [id number] / [id number] / [id number] documented as of this encounter Visit Diagnoses Diagnosis Need for prophylactic vaccination and inoculation against influenza- Primary PAF (paroxysmal atrial fibrillation) (HCC) Atrial fibrillation H/O atrioventricular martell ablation Personal history of surgery to heart and great vessels, presenting hazards to health Presence of cardiac pacemaker Cardiac pacemaker in situ documented in this encounter Care Teams Restrictive Preparation Operator Relationship Specialty Start Date End Date [facility]avarez [facility] [address] [place] [address] PCP - General Family Medicine 08/01/21 documented as of this encounter
[2024-05-07 07:42] LABS: BUN Creatinine Ratio 28.8 (10-20); Basophils # (auto) 0.02 K/uL (0.00-0.20); Basophils % (auto) 0.2 %; Calcium 9.5 mg/dl (8.6-10.3); Creatinine Clr Calc Pharmacy 72.2 ml/min; Eosinophils # (auto) 0.05 K/uL (0.00-0.50); Eosinophils % (auto) 0.5 %; Est GFR (African American) 104.6 ml/min; Est GFR (Non-African American) 90.3 ml/min; Hematocrit (blood only) 38.8 % (37.0-47.0); Hemoglobin 12.8 g/dl (12.0-16.0); Immature Granulocytes # (auto) 0.04 K/uL (0.01-0.20); Immature Granulocytes % (auto) 0.4 %; Lymphocytes # (auto) 1.18 K/uL (1.20-3.40); Lymphocytes % (auto) 12.9 %; Mean Corpuscular Hemoglobin 27.8 pg (25.0-34.0); Mean Corpuscular Volume 84.3 fL (80.0-100.0); Mean Platelet Volume 9.7 fL (9.4-12.4); Monocytes # (auto) 0.78 K/uL (0.11-0.59); Monocytes % (auto) 8.5 %; Neutrophils % (auto) 77.5 %; Platelet Count 347 K/uL (130-400); Potassium 4.1 mmol/L (3.5-5.1); RDW Coefficient of Variation 13.5 % (11.5-14.5); RDW Standard Deviation 41.8 fL (36.4-46.3); White Blood Count 9.17 K/ul (4.8-10.8)
[2024-05-07] MEDS: CETIRIZINE HCL 10 MG TABLET PO PRN (09:00)
[2024-05-07] MEDS ORDERED: NON-FORMULARY MEDICATION (Fluticasone-Umeclidin-Vilanter [Trelegy Ellipta] 100-62.5-25 mcg INH SCH (09:00)
[2024-05-07] MEDS: UMECLIDINIUM/VILANTEROL 62.5/25MCG 7 PUFFS/INHALER INH SCH (09:00)
[2024-05-07] MEDS: FLUTICASONE FUROATE 100MCG 14 PUFFS/INHALER INH SCH (09:00)
[2024-05-07] MEDS: ASPIRIN 81 MG CHEW PO SCH (09:00)
[2024-05-07] MEDS: FLUTICASONE PROPIONATE NA SPR 16 GM BTL PRN (09:01)
[2024-05-07] MEDS: CLOPIDOGREL BISULFATE 75 MG TAB PO SCH (09:01)
[2024-05-07] MEDS: CHERRY SYRUP 5 ML UDP PO SCH (09:01)
[2024-05-07] MEDS: VANCOMYCIN HCL 125 MG/2.5ML SOLN PO SCH (09:09)
[2024-05-07] MEDS ORDERED: ACETAMINOPHEN 325 MG TAB PO PRN (09:44)
[2024-05-07] MEDS: ACETAMINOPHEN 325 MG TAB PO SCH ×2 (09:50→17:38)
--- NOTE | 2024-05-07 10:47 | Orthopedic Consultation ---
Date of Consultation May 07, 2024 Assessment & Plan (1) Clavicle fracture: Findings discussed with patient and . Sling for the left arm along with ice and pain medication. She may do range of motion as tolerated. She may weight-bear as tolerated on the left lower extremity. Platform walker. PT OT. If she is not able to safely transfer or bear weight then she will be a bed to chair transfer. Check vitamin D level. DVT prophylaxis with mechanical devices and probably will need chemoprophylaxis as well. She will need an orthogonal view of the left shoulder which is ordered. Her health history is reviewed and noted. Former smoker. She has had stroke. She is getting denosumab. May need [facility] facility. (2) Closed fracture of superior pubic ramus: (3) Fracture of inferior pubic ramus: History of Present Illness Attending Physician: Negrito Huff MD History of Present Illness 74-year-old female who fell yesterday at home landing on her left side. There is no prior history of injury. She was unable to ambulate. She was brought to hospital by EMS. Evaluation in the ER showed a left distal clavicle fracture and a LC type I pelvis fracture. She offers no other complaint other than pain in the left hip area and left shoulder Allergies Allergy/AdvReac Type Severity Reaction Status Date / Time Iodinated Contrast Media Allergy Intermediate Hives Verified 04/26/24 13:07 mold Allergy Intermediate SNEEZING/CO Verified 04/26/24 13:07 NGESTION moxifloxacin [From Avelox] Allergy Intermediate ITCHING/YEAST Verified 04/26/24 13:07 INFECTION Tetracyclines Allergy Intermediate ? ITCH ALL Verified 04/26/24 13:07 OVER, PT NOT SURE adhesive Allergy Mild ITCHY RASH Verified 04/26/24 13:07 Penicillins Allergy Rash Verified 04/26/24 13:07 Sulfa (Sulfonamide Allergy Swelling Verified 04/26/24 13:07 Antibiotics) of Lip/Tongue/Throat amlodipine AdvReac Intermediate FATIGUE/CON Verified 04/26/24 13:07 STIPATION cefuroxime AdvReac Intermediate CAUSED C. Verified 04/26/24 13:07 DIFF INFECTION Home Medications Medication Instructions Recorded Confirmed Type acetaminophen 500 mg tablet 500 mg PO Q6H PRN Pain 01/30/19 05/06/24 History (Tylenol Extra Strength) cetirizine 10 mg capsule (Zyrtec) 10 mg PO DAILY PRN Allergy Symptoms 09/10/19 05/06/24 History fluticasone propionate 50 2 spray intranasal DAILY PRN 04/13/22 05/06/24 History mcg/actuation nasal Allergy Symptoms spray,suspension (Flonase Allergy Relief) clopidogrel 75 mg tablet 75 mg PO QAM 09/12/22 05/06/24 History metoclopramide HCl 10 mg tablet 10 mg PO TID 10/04/22 05/06/24 History albuterol sulfate 90 mcg/actuation 2 puff inhalation Q4H PRN 10/25/22 05/06/24 Rx aerosol inhaler (Ventolin HFA) Shortness Of Breath #3 Inhalers denosumab 60 mg/mL subcutaneous 60 mg subcut Q6MO 02/07/23 05/06/24 History syringe (Prolia) esomeprazole magnesium 40 mg 40 mg PO QPM #90 caps 03/12/23 05/06/24 Rx capsule,delayed release fluticasone fur. 100 mcg-umeclid 1 inh inhalation DAILY #3 Inhalers 12/25/23 05/06/24 Rx 62.5 mcg-vilant 25 mcg inhalat.powder (Trelegy Ellipta) aspirin 81 mg chewable tablet 81 mg PO DAILY 02/07/24 05/06/24 History levetiracetam 500 mg tablet 500 mg PO BID 02/07/24 05/06/24 History (Keppra) losartan 50 mg tablet 50 mg PO BID 02/07/24 05/06/24 History multivitamin 1 tab PO QAM 02/07/24 05/06/24 History tramadol 50 mg tablet 50 mg PO Q4H PRN Pain 02/07/24 05/06/24 History folic acid 1 mg tablet 1 mg PO BID 04/26/24 05/06/24 History hydralazine 50 mg tablet 50 mg PO TID 04/26/24 05/06/24 History sodium chloride 1,000 mg soluble 1,000 mg PO BID #60 tabs 04/30/24 05/06/24 Rx tablet vancomycin 125 mg capsule 125 mg PO DAILY #10 caps 04/30/24 05/06/24 Rx Patient History Medical History Subarachnoid hemorrhage Acute intracerebral hemorrhage Shoulder pain, right Former smoker IBS (irritable bowel syndrome) Vitamin D deficiency History of small bowel obstruction (~2013) History of colon polyps History of skin cancer Antibiotic-induced yeast infection Seasonal allergies Lung nodules Adrenal adenoma Carcinoid tumor of colon History of claustrophobia Nasal cavity polyp Mild obstructive sleep apnea Chronic rhinitis Langerhans cell histiocytosis Gastroparesis GERD (gastroesophageal reflux disease) Surgical History History of surgery History of Mohs micrographic surgery for skin cancer History of lung biopsy H/O hysterectomy with oophorectomy S/P thoracotomy Hx of exploratory laparotomy S/P appendectomy H/O: hysterectomy Family History Father Myocardial infarction Hypertension Mother Congestive heart failure Hypertension Grandfather (Paternal) Myocardial infarction Grandfather (Maternal) Myocardial infarction Grandmother Colorectal cancer Other Atrial fibrillation Family history of diabetes mellitus Social History Smoking Status: Former smoker Tobacco Type: Cigarettes Age Started Using Tobacco: 16; Age Quit Using Tobacco: 63; packs per day: 0.75; Second Hand Exposure: No; Do You Dip or Chew Tobacco: No; Hx Alcohol Use: Yes Alcohol type: wine Hx Substance Use: No Preferred Language: Tamazight Communication Ability: Effective 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 Lumbar spine as well as posterior pelvis nontender. She can do an active leg raise on the right and can bend her knee about 60 degrees. Logroll negative. The right lower extremity is nontender to palpation without swelling bruising or knee effusion. DP is trace bilaterally PT nonpalpable capillary refill less than 2 seconds. Ankle and toe plantarflexion dorsiflexion inversion eversion 5 out of 5 strength bilaterally. Sensation intact. Neither leg is swollen. There is tenderness around the left hip and hemipelvis area. She can bend the knee about 10 or 15 degrees but is not able to do a leg lift. The left leg is otherwise nontender. Logrolling causes some discomfort in the left hip area. The left distal clavicle is tender and mildly swollen. The shoulder girdle is otherwise nontender including the arm. Axillary musculocutaneous median radial and ulnar motor and sensory functions are intact radial pulses 1+. She has full movement of fingers wrist and forearm rotation and has elbow range of motion of 0/45/100 causing some shoulder pain. No tenderness of the left elbow. Skin intact throughout Results & Data Vital Signs (Past 12 Hours) Vital Signs Temp Pulse Pulse Resp BP Pulse Ox O2 Del Method 05/07/24 10:36 Nasal Cannula 05/07/24 07:44 62 05/07/24 07:35 36.6 C 59 L 17 149/76 H 95 Nasal Cannula 05/07/24 04:35 89 158/77 H 05/07/24 04:13 36.6 C 85 19 175/80 H 96 CPAP 05/07/24 02:16 65 12 94 05/07/24 00:54 68 161/78 H 05/06/24 22:56 106 H 22 96 O2 Flow Rate 05/07/24 10:36 2 05/07/24 07:44 05/07/24 07:35 2 05/07/24 04:35 05/07/24 04:13 05/07/24 02:16 2 05/07/24 00:54 05/06/24 22:56 2 Laboratory Results Laboratory Results WBC 9.17 K/ul (4.8-10.8) 05/07/24 06:21 RBC 4.60 M/uL (4.20-5.40) 05/07/24 06:21 Hgb 12.8 g/dl (12.0-16.0) 05/07/24 06:21 POC Hgb 13.6 g/dl (12.0-16.0) 05/06/24 15:01 Hct 38.8 % (37.0-47.0) 05/07/24 06:21 POC Hct 40 % (37-47) 05/06/24 15:01 MCV 84.3 fL (80.0-100.0) 05/07/24 06:21 MCH 27.8 pg (25.0-34.0) 05/07/24 06:21 MCHC 33.0 g/dL (32.0-36.0) 05/07/24 06:21 RDW Std Deviation 41.8 fL (36.4-46.3) 05/07/24 06:21 RDW Coeff of Lion 13.5 % (11.5-14.5) 05/07/24 06:21 Plt Count 347 K/uL (130-400) 05/07/24 06:21 MPV 9.7 fL (9.4-12.4) 05/07/24 06:21 Immature Gran % (Auto) 0.4 % 05/07/24 06:21 Neut % (Auto) 77.5 % 05/07/24 06:21 Lymph % (Auto) 12.9 % 05/07/24 06:21 [place] % (Auto) 8.5 % 05/07/24 06:21 Eos % (Auto) 0.5 % 05/07/24 06:21 Baso % (Auto) 0.2 % 05/07/24 06:21 Neut # (Auto) 7.10 K/uL (1.40-6.50) H 05/07/24 06:21 Lymph # (Auto) 1.18 K/uL (1.20-3.40) L 05/07/24 06:21 [place] # (Auto) 0.78 K/uL (0.11-0.59) H 05/07/24 06:21 Eos # (Auto) 0.05 K/uL (0.00-0.50) 05/07/24 06:21 Baso # (Auto) 0.02 K/uL (0.00-0.20) 05/07/24 06:21 Immature Gran # (Auto) 0.04 K/uL (0.01-0.20) 05/07/24 06:21 POC Sodium 137 mmol/L (135-144) 05/06/24 15:01 Sodium 137 mmol/L (136-145) 05/07/24 06:21 POC Potassium 3.7 mmol/L (3.3-5.0) 05/06/24 15:01 Potassium 4.1 mmol/L (3.5-5.1) 05/07/24 06:21 POC Chloride 101 mmol/L (101-112) 05/06/24 15:01 Chloride 104 mmol/L (98-107) 05/07/24 06:21 Carbon Dioxide 25 mmol/L (21-32) 05/07/24 06:21 POC Total CO2 21 mmol/L (24-31) L 05/06/24 15:01 Anion Gap 8 (3-11) 05/07/24 06:21 POC Anion Gap 20.0 mmol/L (16-25) 05/06/24 15:01 POC BUN 15 mg/dl (7-18) 05/06/24 15:01 BUN 17 mg/dl (6-23) 05/07/24 06:21 Creatinine 0.59 mg/dl (0.6-1.2) L 05/07/24 06:21 POC Creatinine 0.6 mg/dl (0.6-1.3) 05/06/24 15:01 Est Cr Clr Drug Dosing 72.2 ml/min 05/07/24 06:21 Est GFR ( Amer) 104.6 ml/min 05/07/24 06:21 Est GFR (Non-Af Amer) 90.3 ml/min 05/07/24 06:21 BUN/Creatinine Ratio 28.8 (10-20) H 05/07/24 06:21 Glucose 88 mg/dl (70-99(Fasting)) 05/07/24 06:21 POC Glucose (other) 102 mg/dl (70-99) H 05/06/24 15:01 Calcium 9.5 mg/dl (8.6-10.3) 05/07/24 06:21 POC Ioniz Calcium Leo 1.23 mmol/l (1.12-1.32) 05/06/24 15:01 Impressions Abdomen/Pelvis CT 05/06/24 14:59 CT OF THE ABDOMEN AND PELVIS WITH CONTRAST CLINICAL HISTORY: Trauma, pelvic fx COMPARISON STUDY: CT of the abdomen and pelvis January 22, 2024. Pelvis and left hip radiographs performed earlier today. TECHNIQUE: Following IV administration of 94 mL of Optiray, axial images of the abdomen and pelvis were obtained from the lung bases to the proximal femurs. Images were reviewed in the axial, sagittal, and coronal planes. IV contrast was administered without complication. Automated exposure control was utilized for the study. A dose lowering technique was utilized adhering to the principles of ALARA. CT DOSE: 1741.42 mGy.cm FINDINGS: No hemoperitoneum or pneumoperitoneum is present. There is moderate cardiomegaly with a small pericardial effusion, similar to prior exam. There is interlobular septal thickening within the lung bases. No evidence for traumatic injury to the liver, spleen, adrenal glands, kidneys or pancreas. A low- attenuation right adrenal nodule is unchanged. This is benign. Hypodense hepatic lesions are likely benign. Left adrenal gland and pancreas are unremarkable. There is no biliary or pancreatic ductal dilatation. Caliber and wall thickness of small and large bowel are normal. Colonic diverticulosis. No evidence for acute diverticulitis. There is extensive aortoiliac atherosclerotic plaque. Bladder is distended. No acute lumbar spine fracture is present. There is an acute nondisplaced left sacral ala fracture as well as acute mildly displaced fracture of the left superior pubic ramus extending to the symphysis pubis. There is an acute nondisplaced left inferior pubic ramus fracture. There is a small amount of adjacent hemorrhage, including intramuscular hemorrhage within the left obturator muscles. There is no active extravasation. No additional sites of hemorrhage are present. No proximal femoral fractures. IMPRESSION: 1. No evidence for traumatic injury to the solid abdominal viscera. 2. Acute left superior and inferior rami fractures. Small amount of adjacent extraperitoneal/intramuscular hemorrhage. No active extravasation. No proximal femoral fractures. 3. Cardiomegaly with a small pericardial effusion, unchanged. Interlobular septal thickening suggestive of mild pulmonary edema. ACT 112: Negative or not required by law. Electronically signed by: Dean Vasquez M.D. 05/06/2024 3:59 PM Chest X-Ray 05/06/24 14:59 XR chest 1V portable CLINICAL HISTORY: trauma TECHNIQUE: Single frontal radiograph of the chest was obtained. Comparison: Comparison is made to chest radiograph 04/26/2024 FINDINGS: An implanted pacemaker is seen. Cardiomegaly is noted. The aortic arch is calcified. Reticular interstitial opacities are seen. No evidence of pleural effusion or pneumothorax. IMPRESSION: No acute chest disease. ACT 112: Negative or not required by law. Electronically signed by: Gagandeep Fernandez M.D. 05/06/2024 4:48 PM Hip/Pelvis X-Ray 05/06/24 14:59 XR hip LT 2V w pelvis CLINICAL HISTORY: hip/pelvic pain after fall TECHNIQUE: 2 views of the right hip and single frontal view of the pelvis were obtained. Comparison: None available at the time of this dictation. FINDINGS: There is no evidence of an acute fracture. Degenerative changes are seen in the hip joint. Vascular calcifications are noted. IMPRESSION: Degenerative changes without evidence of acute abnormality. ACT 112: Negative or not required by law. Electronically signed by: Gagandeep Fernandez M.D. 05/06/2024 3:17 PM Shoulder X-Ray 05/06/24 14:59 XR shoulder LT min 2V routine HISTORY: 74 years-old Female Shoulder pain after fall acute left shoulder pain status post fall COMPARISON: Chest x-ray 04/26/2024 TECHNIQUE: 3 views of the left shoulder FINDINGS: Cardiomegaly with left atrial exclusion device. Left subclavian pacer. Cortical irregularity of the distal clavicle is noted superiorly. No acute displaced fracture or dislocation. The glenohumeral joint appears preserved. IMPRESSION: Findings suggestive of a subtle acute distal clavicular fracture without significant displacement. Correlate with point tenderness. ACT 112: Negative or not required by law. The above report was generated using voice recognition software. It may contain grammatical, syntax or spelling errors. Electronically signed by: Maxwell Romero M.D. 05/06/2024 3:[address] 05/06/24 15:20 CT OF THE CERVICAL SPINE WITHOUT CONTRAST CLINICAL HISTORY: fall trauma alert COMPARISON STUDY: Cervical spine radiograph April 22, 2018. CTA of the neck April 26, 2024. TECHNIQUE: Helical axial images of the cervical spine were obtained without IV contrast. Sagittal and coronal reconstructions were viewed. Automated exposure control was utilized for the study. A dose lowering technique was utilized adhering to the principles of ALARA. FINDINGS: Alignment of the cervical spine is anatomic. Vertebral body heights are maintained. No acute cervical spine fracture or subluxation is present. There is no prevertebral edema. Facet joints are intact. This exam is mildly compromised by artifact. Mild multilevel degenerative changes within the cervical spine are present. IMPRESSION: No acute cervical spine fracture or subluxation. ACT 112: Negative or not required by law. Electronically signed by: Dean Vasquez M.D. 05/06/2024 3:[address] 05/06/24 15:20 CT head/brain wo con CLINICAL HISTORY: 74 years-old Female with Fall, trauma alert. Acute head trauma status post fall TECHNIQUE: Multiple axial CT images of the head were obtained without contrast. A dose lowering technique was utilized adhering to the principles of ALARA. COMPARISON: CT cervical spine of same day, brain MRI 04/30/2024, head CT 2023 FINDINGS: No acute intracranial hemorrhage, midline shift, intracranial mass, hydrocephalus, territorial ischemia or abnormal extra-axial collection. Involutional changes with chronic microvascular ischemic disease. Chronic left parieto-occipital infarct with encephalomalacia. Ex vacuo ventriculomegaly of the atria and posterior horn left lateral ventricle. Additional chronic lacunar infarcts in the right frontal lobe haji radiata and lentiform nucleus. Cerebral vascular calcifications. The calvarium is intact. Minimal mucosal thickening of the dependent right maxillary sinus. Mastoid air cells are generally clear. IMPRESSION: 1. No acute intracranial abnormality identified. 2. Chronic left parieto-occipital infarct. 3. Involutional changes with chronic microvascular ischemic disease. ACT 112: Negative or not required by law. The above report was generated using voice recognition software. It may contain grammatical, syntax or spelling errors. Electronically signed by: Maxwell Romero M.D. 05/06/2024 3:54 PM
--- OUTSIDE RECORDS SUMMARY | 2024-05-07 12:18 | External Medical Summary | Summary of Care ---
Author Name Unknown Organization [facility] Address [address] [place] [place] [address] Phone [phone] Care Team Providers Care Basting Marker Name Role Phone Becky Tavarez MD Primary Care Provider [phone] Reason for Visit * Reason Onset Date Comments Advice 05/05/2024 SOB Encounter Details Date Type Department Care Team (Late st Contact Info) Description 05/05/2024 Telephone Cardiology, [facility] [address] [place] [address] [facility], [address] [place] [id number] Advice (SOB ) Allergies Active Allergy Reactions Criticality Noted Date [...] as of this encounter (statuses as of 05/06/2024) Medications Medication Sig Dispensed Refills Start Date End Date Status REGLAN 10 MG PO TABS 1 tab 3 times a day Active Esomeprazole Magnesium 40 MG CPDR Take 1 Capsule by mouth daily before breakfast. 06/22/2017 Active Ventolin HFA 108 (90 Base) MCG/ACT Inhalation Aerosol Solution as needed. 10/25/2022 Active Fluticasone Propionate 50 MCG/ACT Nasal Suspension (Flonase) Administer 1 [place] into nostril in the morning and 1 [place] before bedtime. 04/13/2022 Active Cetirizine HCl 10 [...] Active hydrALAZINE HCl 50 MG Oral Tablet (Apresoline)Indica tions:HTN, goal below 140/90 Take 1 Tablet by [...] Tablets by mouth in the morning. Active documented as of this encounter (statuses as of 05/06/2024) Active Problems Problem Noted Date Diagnosed Date Allergy to multiple antibiotics 11/01/2018 Cataract of both eyes 11/01/2018 COPD exacerbation 04/19/2015 HTN, goal below 140/90 04/19/2015 Gastroesophageal reflux disease without esophagi tis 04/19/2015 Age-related osteoporosis wit hout current pathological fracture 04/19/2015 documented as of this encounter (statuses as of 05/06/2024) Resolved Problems Problem Noted Date Diagnosed Date Resolved Date Encounter for examination fo r normal comparison and control in clinical research program 10/07/2018 03/08/2020 Overview: DO NOT DELETE [facility] [place] DETECT Study: Project # [id number], Lacquer Sizer: Christiano Edwards, PhD. SUMMARY: Goal: Establish test [...] contact study staff at ; after hours Lacquer Sizer via the [facility] hospital keller machine operator . Please contact study team before resolving/deleting from patients problem list. Study phone number: [phone]. Diagnosis changed due to Research Module. Go to Snapshot for study details. Encounter for examination fo r normal comparison and control in clinical research program 10/07/2018 04/06/2022 Overview: DO NOT DELETE - [facility] [place] DETECT Study: Project # [id number], Lacquer Sizer: Brandin Goyal, MS, MPH. SUMMARY: Goal: Establish [...] contact study staff at ; after hours Lacquer Sizer via the [facility] [place] [facility] hospital keller machine operator . - Please contact study team before resolving/deleting from patients problem list. Study phone number: [phone]. Diagnosis changed due to Research Module. Go to Snapshot for study details. documented as of this encounter (statuses as of 05/06/2024) Immunizations Name Administration Dates Next Due COVID-19 [...] on file documented as of this encounter Miscellaneous Notes * Telephone Encounter - Zoe Otto CRNP - 05/06/2024 2:05 PM EDT Noted. Thank you Ronnie and Nursing staff for addressing so quickly. * Telephone Encounter - Armin Mendoza OSA - 05/06/2024 1:31 PM EDT Forwarding to Cassi, thank you * Telephone Encounter - Melyssa Berry LPN - 05/06/2024 1:18 PM EDT Called and spoke to pt about recommendations. Pt requires sooner appointment. Pt sees Vikki at [facility] - she will make appointment with them. * Telephone Encounter - Ronnie Multani PA-C - 05/05/2024 5:41 PM EDT Chart reviewed. April 24, 2024 device interrogation demonstrated appropriate function, 8.5 to 9.7 years remaining longevity, ventricular paced greater than 99% of the time, pacemaker dependent status post AV junction ablation in February 2024 Patient hospitalized at [facility] April 26, 2024 to April 30, 2024 with stroke-like symptoms attributed to dehydration, physiologic stress from UTI. Brain MRI with chronic findings. Chest x-ray revealed emphysema without acute process in the chest. Right apical nodular foci noted possibly representing scarring versus pulmonary nodule, new/progressed since February with radiology recommending three-month follow-up chest CT Resting echocardiography on April 27, 2024 revealed a small pericardial effusion without tamponade. Bubble study was negative for [id number] shunt. Patient called personally. Evaluated by PCP today, EKG obtained (not available for review). Shortness of breath is somewhat difficult to discern though with some concerning characteristics, appearingmultifactorial in etiology. Recommend moving up Cardiology evaluation Would consider the following: Prednisone taper 3 to 6 months course of colchicine 0.6 mg/day Limited resting echocardiogram in two weeks to reassess the pericardial effusion Weaning and discontinuing hydralazine Trial of low-dose furosemide noting intermittent fluid retention, intermittent hyponatremia, dyspnea complaint ?? Whether muscular dystrophy is a major contributing factor ?? Recommend follow-up with Pulmonary Medicine ([facility]) regarding chest x-ray findings at [facility] Ronnie Multani PA-C Department of Cardiology * Telephone Encounter - Mihai Hogan LPN - 05/05/2024 2:38 PM EDT Called patient and only symptom is SOB. Present at rest or with any exertion. Stated her lungs havebeen checked previously and was told lungs are not the issue. States ongoing since Watchman procedure 01/30/24 and recently has been more noticeable. Advised patient if having worsening SOB to not hesitate to go to ED. Patient verbalized understanding. Please advise. * Telephone Encounter - Sandra Keenan OSA - 05/05/2024 2:19 PM EDT Person calling: Danielle Relationship to patient: Self Number to return call: [phone] Reason for call (brief): SOB / fluid around her heart Pharmacy: N/A Provider Name: Lacy / Fam / Brisa / Rangel Detailed message to office: SOB / Fluid around her heart Outcome: no answer to transfer / TE / Teams msg to [facility] Potential Urgent Conditions documented in this encounter Plan of Treatment Upcoming Encounters Date Type Department Care Team (Late st Contact Info) Description 08/26/2024 8:30 AM EST Office Visit Cardiology, [facility] [address] [place] [address] Zoe Otto CRNP [address] [facility] [place] [phone] 10/24/2024 9:00 AM EDT Office Visit Cardiology, [facility] [address] [place] [address] Laura Ledezma CRNP [address] [place] [id number] Health Maintenance Due Date Last Done Comments [...] D LEVEL ONCE IN A LIFETIME-USE SMARTSET# [id number] Completed 11/06/2023, 11/07/2022, 12/22/2021, Additional history exists [...] this encounter Medical Devices Implanted Type Area Wool Washer Feeder Device Identifier Shelf Expiration Date Model / Serial / Lot Lens Intraoc 19.0 - [id number] - [id number] Implanted:Qty: 1 on 01/02/2019 by Davey Tang MD at OR [facility] Left: Eye [employer] 06/05/2023 [id number] / [id number] / Lens Intraoc 21.0 - [id number] - [id number] Implanted:Qty: 1 on 01/21/2019 by Davey Tang MD at OR [facility] Right: Eye [employer] 08/05/2023 [id number] / [id number] / [id number] documented as of this encounter Care Teams Basting Marker Relationship Specialty Start Date End Date Becky Tavarez MD [address] [place] [address], [place] [address] PCP - General Family Medicine 08/01/21 documented as of this encounter
--- NOTE | 2024-05-07 12:30 | Hospitalist Progress Note ---
Date of Service May 07, 2024 Assessment & Plan (1) Fall: Plan: Patient sustained a witnessed GLF on the afternoon of 05/06 after tripping on her chair; no LOC; no head strike; landed on her left side Head/cervical spine CT without acute findings Distal clavicular fracture and superior/inferior pubic ramus fracture on arrival per review of x-rays/CTAP from 05/06 Repeat left shoulder x-ray reviewed 05/07: distal left calvicular fx PT/OT consulted - recommending rehab Prefer to use PO pain medication first - Tylenol, oxycodone prn. Dilaudid for episodes of severe pain. Orthopedic consult reviewed 05/07: sling for left arm, ice, pain medication. weight bear as tolerated. Reviewed CBC 05/07: hgb stable at 12.8 Reviewed BMP 05/07: stable. AM CBC, BMP, vitamin D level (2) Fracture of superior pubic ramus: Plan: A/P CT revealed acute left superior and inferior rami fractures; no active extravasation Pain management (as above) (3) Closed fracture of distal clavicle: Plan: Left shoulder x-ray on arrival suggestive of acute distal clavicular fracture without significant displacement Sling application/immobilization Pain management (as above) (4) Obstructive sleep apnea: Plan: CPAP at bedtime Plan Disposition: medical telemetry Full code Heart healthy diet VTE PPx: Hold chemical DVT PX in the setting of acute trauma for 24 hours; SCDs Admission and Anticipated Discharge Date Admission Date: May 06, 2024 Subjective Patient seen and examined this morning. Patient resting comfortably in bed with sling on. patient states her pain is controlled with pain medication. She denied chest pain, SOB. She states that when she fell she did not hit her head. She states she did not feel dizzy prior to fall either. She states she got "tangled up in her feet". Physical Exam 2 Constitutional: WD/WN, vitals as above Respiratory: normal respiratory effort, lungs clear to auscultation Cardiovascular: RRR, no murmur, no edema Skin: no rashes, warm and dry Psychiatric: A+Ox3, euthymic affect Results & Data Results & Data Vital Signs (Past 12 Hours) Vital Signs Temp Pulse Pulse Resp BP Pulse Ox O2 Del Method 05/07/24 10:36 Nasal Cannula 05/07/24 07:44 62 05/07/24 07:35 36.6 C 59 L 17 149/76 H 95 Nasal Cannula 05/07/24 04:35 89 158/77 H 05/07/24 04:13 36.6 C 85 19 175/80 H 96 CPAP 05/07/24 02:16 65 12 94 05/07/24 00:54 68 161/78 H O2 Flow Rate 05/07/24 10:36 2 05/07/24 07:44 05/07/24 07:35 2 05/07/24 04:35 05/07/24 04:13 05/07/24 02:16 2 05/07/24 00:54 Laboratory Results 05/07/24 06:21 05/07/24 06:21 PG Care Time/CCT Total # of Minutes Spent Total Time Spent with Patient: Total time spent is greater than 50% in coordination of care (as documented) at patient's floor/unit and/or counseling patient: Coding Level of Care Code 37342 SUB INP/OBS CARE MIN Diagnoses Fall, initial encounter W19.XXXA Encounter type: initial encounter Closed fracture of superior ramus of pubis, unspecified laterality, initial encounter S32.519A Encounter type: initial encounter Fracture type: closed Laterality: unspecified laterality Closed nondisplaced fracture of acromial end of left clavicle, initial encounter S42.035A Encounter type: initial encounter Fracture alignment: nondisplaced Laterality: left Obstructive sleep apnea G47.33 (1) Fall Encounter type: initial encounter Qualified Code(s): W19.XXXA - Unspecified fall, initial encounter (2) Fracture of superior pubic ramus Encounter type: initial encounter Fracture type: closed Laterality: u nspecified laterality Qualified Code(s): S32.519A - Fracture of superior rim of unspecified pubis, initial encounter for closed fracture (3) Closed fracture of distal clavicle Encounter type: initial encounter Fracture alignment: nondisplaced L aterality: left Qualified Code(s): S42.035A - Nondisplaced fracture of lateral end of left clavicle, initial encounter for closed fracture
[2024-05-07] MEDS: ENOXAPARIN INJ 40 MG/0.4 ML SYR SQ SCH (12:31)
[2024-05-07] MEDS: oxyCODONE HCL IR 5 MG TAB (IMMEDIATE RELEASE) PO PRN (13:32)
--- NOTE | 2024-05-07 15:43 | XRay Report ---
SINGLE VIEW LEFT SHOULDER CLINICAL HISTORY: Left shoulder pain. FINDINGS: A single view of the left shoulder is compared to study dated 05/06/2024. The skeletal struc tures are osteopenic. Again seen is a minimally displaced fracture of the distal left clavicle. Overl karla soft tissue edema is observed. The acromioclavicular joint appears maintained. Glenohumeral join t alignment is grossly anatomic. A pacemaker is partially visualized. The imaged left lung parenchyma appears clear. IMPRESSION: A distal left clavicular fracture is again noted. Electronically signed by: Carlos Vicente M.D. 05/07/2024 3:42 PM
[2024-05-07] MEDS: HYDROmorphone INJ 0.5 MG/0.5 ML SYR IV PRN (21:00)
[2024-05-08 07:48] LABS: Calcium 9.5 mg/dl (8.6-10.3); Potassium 3.8 mmol/L (3.5-5.1)
[2024-05-08 07:54] LABS: Creatinine Clr Calc Pharmacy 76.8 ml/min
[2024-05-08 08:07] LABS: Basophils # (auto) 0.03 K/uL (0.00-0.20); Basophils % (auto) 0.4 %; Echinocytes 1+; Eosinophils # (auto) 0.32 K/uL (0.00-0.50); Eosinophils % (auto) 4.2 %; Hematocrit (blood only) 39.2 % (37.0-47.0); Hemoglobin 12.6 g/dl (12.0-16.0); Immature Granulocytes # (auto) 0.04 K/uL (0.01-0.20); Immature Granulocytes % (auto) 0.5 %; Lymphocytes # (auto) 1.22 K/uL (1.20-3.40); Lymphocytes % (auto) 15.9 %; Mean Corpuscular Hemoglobin 27.6 pg (25.0-34.0); Mean Corpuscular Hgb Conc 32.1 g/dL (32.0-36.0); Mean Platelet Volume 9.8 fL (9.4-12.4); Monocytes # (auto) 0.63 K/uL (0.11-0.59); Monocytes % (auto) 8.2 %; Neutrophils # (auto) 5.41 K/uL (1.40-6.50); Neutrophils % (auto) 70.8 %; Platelet Count 266 K/uL (130-400); Platelet Estimate Normal (Normal); RDW Coefficient of Variation 13.5 % (11.5-14.5); RDW Standard Deviation 42.4 fL (36.4-46.3); Red Blood Count 4.56 M/uL (4.20-5.40); Toxic Granulation 1+; Toxic Vacuolation 1+; White Blood Count 7.65 K/ul (4.8-10.8)
[2024-05-08] MEDS: HYDROmorphone INJ 0.5 MG/0.5 ML SYR IV STA ×2 (08:08→08:55)
[2024-05-08] MEDS: ACETAMINOPHEN 500 MG TAB PO SCH (09:04)
[2024-05-08] MEDS: traMADol HCL 50 MG TABLET PO PRN (11:10)
--- NOTE | 2024-05-08 12:24 | Hospitalist Progress Note ---
Date of Service May 08, 2024 Assessment & Plan (1) Fall: Plan: Patient sustained a witnessed ground-level fall on the afternoon of 05/06 after tripping on her chair; no LOC; no head strike; landed on her left side - Head/cervical spine CT without acute findings - Distal clavicular fracture and superior/inferior pubic ramus fracture on arrival per review of x-rays/CTAP from 05/06 - Repeat left shoulder x-ray reviewed 05/07: distal left clavicular fx - PT/OT consulted - recommending rehab. Referral made to [facility] - Pain regimen: > Scheduled Tylenol, tramadol PRN, Dilaudid PRN for severe pain - Ortho consulted: > Clavicle fracture: Range of motion as tolerated. Sling for comfort. Cool compresses. Okay to be out of sling to use platform walker. > Pubic ramus fracture: Weight-bear as tolerated. Platform walker. - 25OH Vitamin D WNL at 64.8 (2) Fracture of superior pubic ramus: Plan: A/P CT revealed acute left superior and inferior rami fractures; no active extravasation Pain management (as above) (3) Closed fracture of distal clavicle: Plan: Left shoulder x-ray on arrival suggestive of acute distal clavicular fracture without significant displacement Sling application/immobilization Pain management (as above) (4) Obstructive sleep apnea: Plan: CPAP at bedtime Plan Ordered bowel regimen Discussed discharge planning with case management VTE PPx: Lovenox CODE STATUS: Full code Admission and Anticipated Discharge Date Admission Date: May 06, 2024 Subjective Patient seen and evaluated at bedside. She reports that her pain is well- controlled currently. She does note that she had increased pain this morning, worse in her pelvis than her clavicle, but this resolved after additional pain meds. We discussed rehab following her hospital stay, and she is agreeable to rehab. She states that her appetite is good, she slept well last night, and her last BM was yesterday. No additional complaints or concerns at this time. Physical Exam Physical Exam: General: No acute distress, nondiaphoretic, well-developed, well-nourished. Skin: Warm, dry, no rashes noted. Slight ecchymosis on left distal clavicle. Left arm in sling. Cardiac: Regular rate and rhythm without murmurs gallops or rubs. Pulm: Clear to auscultation bilaterally without wheezes, rales or rhonchi. No respiratory distress. 96% on 2 L. Abdominal: Positive bowel sounds x 4. Soft, nontender, without masses or organomegaly. No guarding or rebound tenderness. Neuro: A&O x3. No focal neurological deficits. MSK: Lower extremity exam severely limited secondary to pain. Plantarflexion and dorsiflexion 5/5. Sensation intact in lower extremities bilaterally. Results & Data Results & Data Vital Signs (Past 12 Hours) Vital Signs Temp Pulse Pulse Pulse Resp BP Pulse Ox 05/08/24 11:42 98.6 F 78 17 179/81 H 95 05/08/24 07:45 97.9 F 73 18 200/101 H 92 05/08/24 07:25 05/08/24 05:53 76 05/08/24 03:15 97.9 F 71 18 180/91 H 91 O2 Del Method O2 Flow Rate 05/08/24 11:42 Room Air 05/08/24 07:45 Room Air 05/08/24 07:25 Nasal Cannula 2 05/08/24 05:53 05/08/24 03:15 Room Air Laboratory Results Reviewed CBC Reviewed BMP PG Care Time/CCT Total # of Minutes Spent Total Time Spent with Patient: Total time spent is greater than 50% in coordination of care (as documented) at patient's floor/unit and/or counseling patient: Coding Level of Care Code 81435 SUB INP/OBS CARE 2/35MIN Diagnoses Fall, initial encounter W19.XXXA Encounter type: initial encounter Closed fracture of superior ramus of pubis, unspecified laterality, initial encounter S32.519A Encounter type: initial encounter Fracture type: closed Laterality: unspecified laterality Closed nondisplaced fracture of acromial end of left clavicle, initial encounter S42.035A Encounter type: initial encounter Fracture alignment: nondisplaced Laterality: left Obstructive sleep apnea G47.33 (1) Fall Encounter type: initial encounter Qualified Code(s): W19.XXXA - Unspecified fall, initial encounter (2) Fracture of superior pubic ramus Encounter type: initial encounter Fracture type: closed Laterality: unspecified laterality Qualified Code(s): S32.519A - Fracture of superior rim of unspecified pubis, initial encounter for closed fracture (3) Closed fracture of distal clavicle Encounter type: initial encounter Fracture alignment: nondisplaced Laterality: left Qualified Code(s): S42.035A - Nondisplaced fracture of lateral end of left clavicle, initial encounter for closed fracture
--- NOTE | 2024-05-08 13:44 | Orthopedic Progress Note ---
Date of Service May 08, 2024 Assessment & Plan (1) Clavicle fracture: Plan: Reviewed shoulder x-ray orthogonal results with patient Range of motion as tolerated Sling for comfort. Pain control Cool compresses PT OT Ok to be out of sling to use platform walker (2) Closed fracture of superior pubic ramus: Plan: Weight-bear as tolerated. Platform walker. PT OT. Pain control If she is unable to safely transfer or bear weight then she will be a bed to chair transfer. Will likely require rehab. (3) Fracture of inferior pubic ramus: Plan: As above Admission and Anticipated Discharge Date Admission Date: May 06, 2024 Subjective Patient seen in the room. She is still having some pain this morning. Has been taking Tylenol as needed, is having a little bit of nausea with the other pain medication. Has not had any vomiting. She was up with physical therapy and walked 3 steps in 1 direction and then 3 steps in the other direction holding onto them. She did not use the walker. She did not feel that she could do any more today. The majority of her pain is in the left groin area but she also has some discomfort in the left shoulder/collarbone area. She denies any numbness or tingling in her fingers or toes. Physical Exam Physical Exam: Constitutional: Sitting upright in bed resting comfortably, pleasant. Appears to be in some discomfort with changes in position. Musculoskeletal: Left upper extremity: Arm sling in place. Slight ecchymosis noted to the distal clavicle area. Range of motion is limited in the left shoulder secondary to pain. There is no decreased active or passive range of motion in the elbow or wrist with flexion and extension. Able to move all fingers. Motor function intact in all distributions. Certified Nursing Attendant strength 4 out of 5. Left lower extremity: Range of motion severely limited at the hip secondary to pain. Unable to perform a straight leg raise secondary to pain. Able to initiate active knee flexion. Ankle plantarflexion and dorsiflexion 5 out of 5. Moves all toes. Neurologic: No sensory deficits in bilateral upper or lower extremities to light touch. Results & Data Vital Signs (Past 12 Hours) Vital Signs Temp Pulse Pulse Pulse Resp BP Pulse Ox 05/08/24 11:42 98.6 F 78 17 179/81 H 95 05/08/24 07:45 97.9 F 73 18 200/101 H 92 05/08/24 07:25 05/08/24 05:53 76 05/08/24 03:15 97.9 F 71 18 180/91 H 91 O2 Del Method O2 Flow Rate 05/08/24 11:42 Room Air 05/08/24 07:45 Room Air 05/08/24 07:25 Nasal Cannula 2 05/08/24 05:53 05/08/24 03:15 Room Air Laboratory Results Vitamin D normal at 64.8
[2024-05-09 06:20] LABS: Basophils # (auto) 0.03 K/uL (0.00-0.20); Basophils % (auto) 0.4 %; Eosinophils # (auto) 0.22 K/uL (0.00-0.50); Eosinophils % (auto) 2.9 %; Hematocrit (blood only) 38.3 % (37.0-47.0); Hemoglobin 13.2 g/dl (12.0-16.0); Immature Granulocytes # (auto) 0.03 K/uL (0.01-0.20); Immature Granulocytes % (auto) 0.4 %; Lymphocytes # (auto) 0.94 K/uL (1.20-3.40); Lymphocytes % (auto) 12.3 %; Mean Corpuscular Hemoglobin 28.8 pg (25.0-34.0); Mean Corpuscular Hgb Conc 34.5 g/dL (32.0-36.0); Mean Corpuscular Volume 83.6 fL (80.0-100.0); Mean Platelet Volume 9.8 fL (9.4-12.4); Monocytes # (auto) 0.66 K/uL (0.11-0.59); Monocytes % (auto) 8.7 %; Neutrophils # (auto) 5.75 K/uL (1.40-6.50); Neutrophils % (auto) 75.3 %; Platelet Count 296 K/uL (130-400); RDW Coefficient of Variation 13.7 % (11.5-14.5); RDW Standard Deviation 41.5 fL (36.4-46.3); Red Blood Count 4.58 M/uL (4.20-5.40); White Blood Count 7.63 K/ul (4.8-10.8)
[2024-05-09 06:28] LABS: BUN Creatinine Ratio 23.7 (10-20); Calcium 9.2 mg/dl (8.6-10.3); Creatinine Clr Calc Pharmacy 72.2 ml/min; Potassium 4.1 mmol/L (3.5-5.1)
[2024-05-09] MEDS: POLYETHYLENE (MIRALAX) 17 GM PACK PO PRN (08:25)
--- NOTE | 2024-05-09 09:41 | Hospitalist Progress Note ---
Date of Service May 09, 2024 Assessment & Plan (1) Fall: Plan: Patient sustained a witnessed ground-level fall on the afternoon of 05/06 after tripping on her chair; no LOC; no head strike; landed on her left side - Distal left clavicular fracture and superior/inferior pubic ramus fracture on arrival - Head/cervical spine CT without acute findings - 25OH Vitamin D WNL at 64.8 - Pain regimen: > Scheduled Tylenol > Started oxycodone IR 5 mg PRN for moderate pain in replace of tramadol to start transitioning to oral pain meds > Dilaudid PRN for severe pain - Ortho consulted: > Clavicle fracture: Range of motion as tolerated. Sling for comfort. Cool compresses. Okay to be out of sling to use platform walker. > Pubic ramus fracture: Weight-bear as tolerated. Platform walker. - PT/OT consulted - recommending rehab. Referral made to [facility] - Patient is medically stable and can be downgraded to MedSurg if needed for bed availability, however remains on PCU/telemetry given trauma alert on admission per protocol (2) Fracture of superior pubic ramus: Plan: A/P CT revealed acute left superior and inferior rami fractures; no active extravasation Pain management (as above) (3) Closed fracture of distal clavicle: Plan: Left shoulder x-ray on arrival suggestive of acute distal clavicular fracture without significant displacement Sling application/immobilization Pain management (as above) (4) Obstructive sleep apnea: Plan: CPAP at bedtime Plan Started oxycodone IR, discontinued tramadol Continue inpatient hospitalization while awaiting rehab placement Patient is medically stable and can be downgraded to MedSurg if needed for bed availability, however remains on PCU/telemetry given trauma alert on admission per protocol VTE PPx: Lovenox CODE STATUS: Full code Admission and Anticipated Discharge Date Admission Date: May 06, 2024 Subjective Patient seen and evaluated at bedside. She states that her pain is better controlled today. She reports some anxiety surrounding activities, including transferring from bed to bedside commode. Encouraged her to continue working with PT and OT and hopefully these worries alleviate as she has more repetitions with transfers. Continue inpatient stay while awaiting rehab placement. No additional complaints or concerns at this time. Physical Exam Physical Exam: General: No acute distress, nondiaphoretic, well-developed, well-nourished. Skin: Warm, dry, no rashes noted. Slight ecchymosis on left distal clavicle. Left arm in sling. Cardiac: Regular rate and rhythm without murmurs gallops or rubs. Pulm: Clear to auscultation bilaterally without wheezes, rales or rhonchi. No respiratory distress. 95% on 2 L. Abdominal: Positive bowel sounds x 4. Soft, nontender, without masses or organomegaly. No guarding or rebound tenderness. Neuro: A&O x3. No focal neurological deficits. MSK: Lower extremity exam severely limited secondary to pain. Plantarflexion and dorsiflexion 5/5. Sensation intact in lower extremities bilaterally. Results & Data Results & Data Vital Signs (Past 12 Hours) Vital Signs Temp Pulse Pulse Resp BP BP Pulse Ox 05/09/24 07:35 98.2 F 92 H 18 194/91 H 93 05/09/24 04:00 98.4 F 88 18 159/88 H 94 05/08/24 23:59 98.1 F 85 18 161/76 H 94 05/08/24 21:47 88 05/08/24 21:45 70 176/82 H O2 Del Method O2 Flow Rate 05/09/24 07:35 Nasal Cannula 2 05/09/24 04:00 Nasal Cannula 2 05/08/24 23:59 Nasal Cannula 2 05/08/24 21:47 05/08/24 21:45 Laboratory Results Reviewed CBC Reviewed BMP PG Care Time/CCT Total # of Minutes Spent Total Time Spent with Patient: Total time spent is greater than 50% in coordination of care (as documented) at patient's floor/unit and/or counseling patient: Coding Level of Care Code 61700 SUB INP/OBS CARE MIN Diagnoses Fall, initial encounter W19.XXXA Encounter type: initial encounter Closed fracture of superior ramus of pubis, unspecified laterality, initial enco unter S32.519A Encounter type: initial encounter Fracture type: closed Laterality: unspecified laterality Closed nondisplaced fracture of acromial end of left clavicle, initial encounter S42.035A Encounter type: initial encounter Fracture alignment: nondisplaced Laterality: left Obstructive sleep apnea G47.33 (1) Fall Encounter type: initial encounter Qualified Code(s): W19.XXXA - Unspecified fall, initial encounter (2) Fracture of superior pubic ramus Encounter type: initial encounter Fracture type: closed Laterality: unspecified laterality Qualified Code(s): S32.519A - Fracture of superior rim of unspecified pubis, initial encounter for closed fracture (3) Closed fracture of distal clavicle Encounter type: initial encounter Fracture alignment: nondisplaced Laterality: left Qualified Code(s): S42.035A - Nondisplaced fracture of lateral end of left clavicle, initial encounter for closed fracture
--- NOTE | 2024-05-09 10:30 | Orthopedic Progress Note ---
Date of Service May 09, 2024 Assessment & Plan (1) Clavicle fracture: Plan: Ice with easy wrap Range of motion as tolerated Sling for comfort. Pain control Cool compresses PT OT Ok to be out of sling to use platform walker Patient will need 2-week follow-up in our clinic She will most likely need to go to a rehab facility (2) Closed fracture of superior pubic ramus: Plan: Weight-bear as tolerated. Platform walker. PT OT. Pain control If she is unable to safely transfer or bear weight then she will be a bed to chair transfer. Will likely require rehab. (3) Fracture of inferior pubic ramus: Plan: As above Admission and Anticipated Discharge Date Admission Date: May 06, 2024 Subjective This 74-year-old female is seen this morning for follow-up of a left clavicle fracture and left inferior and superior pubic rami fracture. Patient states that her pain is little better this morning however she still is unable to lift her left leg. She has been taking Tylenol as needed, is having a little bit of nausea with the other pain medication. Patient states she had significant difficulty participating with physical therapy. She states that she has difficulty bearing weight on the left lower extremity and feels unstable. Patient denies chest pain, fever, chills, sweats, vomiting, diarrhea. She states she does have some constipation from using the oral pain medication. She also states she feels a little more short of breath than normal and is currently on oxygen via nasal cannula. She denies any numbness or tingling in her fingers or toes. Review of Systems Review of Systems: All systems reviewed & are unremarkable except as noted in Subjective Physical Exam Physical Exam: Left shoulder: Patient has visible edema and ecchymosis over the midshaft of the left clavicle with tenderness to palpation. She is very hesitant to attempt forward flexion of her left upper extremity. She is able to to straighten her elbow to about 15 degrees and is able to flex about 20 degrees from terminal flexion. She does have appropriate dexterity of her hand wrist and fingers. She is able to detect light sensation to touch over the pads of all digits. Her peripheral pulses are 2+. Left lower extremity: Patient is unable to perform active straight leg raise test. She has some referred pain to the groin area with logroll testing. She is able to actively dorsi and plantarflex her foot without issue. She only tolerates passive hip flexion to about 65 degrees and asked me not to try to internally or externally rotate due to the pain she had yesterday. Results & Data Vital Signs (Past 12 Hours) Vital Signs Temp Pulse Resp BP BP Pulse Ox O2 Del Method 05/09/24 07:35 36.8 C 92 H 18 194/91 H 93 Nasal Cannula 05/09/24 04:00 36.9 C 88 18 159/88 H 94 Nasal Cannula 05/08/24 23:59 36.7 C 85 18 161/76 H 94 Nasal Cannula O2 Flow Rate 05/09/24 07:35 2 05/09/24 04:00 2 05/08/24 23:59 2 Diagnostic Findings Laboratory Results WBC 7.63 K/ul (4.8-10.8) 05/09/24 05:48 RBC 4.58 M/uL (4.20-5.40) 05/09/24 05:48 Hgb 13.2 g/dl (12.0-16.0) 05/09/24 05:48 POC Hgb 13.6 g/dl (12.0-16.0) 05/06/24 15:01 Hct 38.3 % (37.0-47.0) 05/09/24 05:48 POC Hct 40 % (37-47) 05/06/24 15:01 MCV 83.6 fL (80.0-100.0) 05/09/24 05:48 MCH 28.8 pg (25.0-34.0) 05/09/24 05:48 MCHC 34.5 g/dL (32.0-36.0) 05/09/24 05:48 RDW Std Deviation 41.5 fL (36.4-46.3) 05/09/24 05:48 RDW Coeff of Lion 13.7 % (11.5-14.5) 05/09/24 05:48 Plt Count 296 K/uL (130-400) 05/09/24 05:48 MPV 9.8 fL (9.4-12.4) 05/09/24 05:48 Immature Gran % (Auto) 0.4 % 05/09/24 05:48 Neut % (Auto) 75.3 % 05/09/24 05:48 Lymph % (Auto) 12.3 % 05/09/24 05:48 [place] % (Auto) 8.7 % 05/09/24 05:48 Eos % (Auto) 2.9 % 05/09/24 05:48 Baso % (Auto) 0.4 % 05/09/24 05:48 Neut # (Auto) 5.75 K/uL (1.40-6.50) 05/09/24 05:48 Lymph # (Auto) 0.94 K/uL (1.20-3.40) L 05/09/24 05:48 [place] # (Auto) 0.66 K/uL (0.11-0.59) H 05/09/24 05:48 Eos # (Auto) 0.22 K/uL (0.00-0.50) 05/09/24 05:48 Baso # (Auto) 0.03 K/uL (0.00-0.20) 05/09/24 05:48 Immature Gran # (Auto) 0.03 K/uL (0.01-0.20) 05/09/24 05:48 Toxic Granulation 1+ 05/08/24 06:59 Toxic Vacuolation 1+ 05/08/24 06:59 Platelet Estimate Normal (Normal) 05/08/24 06:59 Echinocytes 1+ 05/08/24 06:59 POC Sodium 137 mmol/L (135-144) 05/06/24 15:01 Sodium 135 mmol/L (136-145) L 05/09/24 05:48 POC Potassium 3.7 mmol/L (3.3-5.0) 05/06/24 15:01 Potassium 4.1 mmol/L (3.5-5.1) 05/09/24 05:48 POC Chloride 101 mmol/L (101-112) 05/06/24 15:01 Chloride 103 mmol/L (98-107) 05/09/24 05:48 Carbon Dioxide 25 mmol/L (21-32) 05/09/24 05:48 POC Total CO2 21 mmol/L (24-31) L 05/06/24 15:01 Anion Gap 7 (3-11) 05/09/24 05:48 POC Anion Gap 20.0 mmol/L (16-25) 05/06/24 15:01 POC BUN 15 mg/dl (7-18) 05/06/24 15:01 BUN 14 mg/dl (6-23) 05/09/24 05:48 Creatinine 0.59 mg/dl (0.6-1.2) L 05/09/24 05:48 POC Creatinine 0.6 mg/dl (0.6-1.3) 05/06/24 15:01 Est Cr Clr Drug Dosing 72.2 ml/min 05/09/24 05:48 eGFR 94.51 05/09/24 05:48 Est GFR ( Amer) 104.6 ml/min 05/07/24 06:21 Est GFR (Non-Af Amer) 90.3 ml/min 05/07/24 06:21 BUN/Creatinine Ratio 23.7 (10-20) H 05/09/24 05:48 Glucose 95 mg/dl (70-99(Fasting)) 05/09/24 05:48 POC Glucose (other) 102 mg/dl (70-99) H 05/06/24 15:01 Calcium 9.2 mg/dl (8.6-10.3) 05/09/24 05:48 POC Ioniz Calcium Leo 1.23 mmol/l (1.12-1.32) 05/06/24 15:01 25-OH Vitamin D Total 64.8 ng/ml (30-100) 05/08/24 06:59 Impressions Abdomen/Pelvis CT 05/06/24 14:59 CT OF THE ABDOMEN AND PELVIS WITH CONTRAST CLINICAL HISTORY: Trauma, pelvic fx COMPARISON STUDY: CT of the abdomen and pelvis January 22, 2024. Pelvis and left hip radiographs performed earlier today. TECHNIQUE: Following IV administration of 94 mL of Optiray, axial images of the abdomen and pelvis were obtained from the lung bases to the proximal femurs. Images were reviewed in the axial, sagittal, and coronal planes. IV contrast was administered without complication. Automated exposure control was utilized for the study. A dose lowering technique was utilized adhering to the principles of ALARA. CT DOSE: 1741.42 mGy.cm FINDINGS: No hemoperitoneum or pneumoperitoneum is present. There is moderate cardiomegaly with a small pericardial effusion, similar to prior exam. There is interlobular septal thickening within the lung bases. No evidence for traumatic injury to the liver, spleen, adrenal glands, kidneys or pancreas. A low- attenuation right adrenal nodule is unchanged. This is benign. Hypodense hepatic lesions are likely benign. Left adrenal gland and pancreas are unremarkable. There is no biliary or pancreatic ductal dilatation. Caliber and wall thickness of small and large bowel are normal. Colonic diverticulosis. No evidence for acute diverticulitis. There is extensive aortoiliac atherosclerotic plaque. Bladder is distended. No acute lumbar spine fracture is present. There is an acute nondisplaced left sacral ala fracture as well as acute mildly displaced fracture of the left superior pubic ramus extending to the symphysis pubis. There is an acute nondisplaced left inferior pubic ramus fracture. There is a small amount of adjacent hemorrhage, including intramuscular hemorrhage within the left obturator muscles. There is no active extravasation. No additional sites of hemorrhage are present. No proximal femoral fractures. IMPRESSION: 1. No evidence for traumatic injury to the solid abdominal viscera. 2. Acute left superior and inferior rami fractures. Small amount of adjacent extraperitoneal/intramuscular hemorrhage. No active extravasation. No proximal femoral fractures. 3. Cardiomegaly with a small pericardial effusion, unchanged. Interlobular septal thickening suggestive of mild pulmonary edema. ACT 112: Negative or not required by law. Electronically signed by: Dean Vasquez M.D. 05/06/2024 3:59 PM Chest X-Ray 05/06/24 14:59 XR chest 1V portable CLINICAL HISTORY: trauma TECHNIQUE: Single frontal radiograph of the chest was obtained. Comparison: Comparison is made to chest radiograph 04/26/2024 FINDINGS: An implanted pacemaker is seen. Cardiomegaly is noted. The aortic arch is calcified. Reticular interstitial opacities are seen. No evidence of pleural effusion or pneumothorax. IMPRESSION: No acute chest disease. ACT 112: Negative or not required by law. Electronically signed by: Gagandeep Fernandez M.D. 05/06/2024 4:48 PM Hip/Pelvis X-Ray 05/06/24 14:59 XR hip LT 2V w pelvis CLINICAL HISTORY: hip/pelvic pain after fall TECHNIQUE: 2 views of the right hip and single frontal view of the pelvis were obtained. Comparison: None available at the time of this dictation. FINDINGS: There is no evidence of an acute fracture. Degenerative changes are seen in the hip joint. Vascular calcifications are noted. IMPRESSION: Degenerative changes without evidence of acute abnormality. ACT 112: Negative or not required by law. Electronically signed by: Gagandeep Fernandez M.D. 05/06/2024 3:[address] 05/06/24 15:20 CT OF THE CERVICAL SPINE WITHOUT CONTRAST CLINICAL HISTORY: fall trauma alert COMPARISON STUDY: Cervical spine radiograph April 22, 2018. CTA of the neck April 26, 2024. TECHNIQUE: Helical axial images of the cervical spine were obtained without IV contrast. Sagittal and coronal reconstructions were viewed. Automated exposure control was utilized for the study. A dose lowering technique was utilized adhering to the principles of ALARA. FINDINGS: Alignment of the cervical spine is anatomic. Vertebral body heights are maintained. No acute cervical spine fracture or subluxation is present. There is no prevertebral edema. Facet joints are intact. This exam is mildly compromised by artifact. Mild multilevel degenerative changes within the cervical spine are present. IMPRESSION: No acute cervical spine fracture or subluxation. ACT 112: Negative or not required by law. Electronically signed by: Dean Vasquez M.D. 05/06/2024 3:[address] 05/06/24 15:20 CT head/brain wo con CLINICAL HISTORY: 74 years-old Female with Fall, trauma alert. Acute head trauma status post fall TECHNIQUE: Multiple axial CT images of the head were obtained without contrast. A dose lowering technique was utilized adhering to the principles of ALARA. COMPARISON: CT cervical spine of same day, brain MRI 04/30/2024, head CT 04/26/2024 FINDINGS: No acute intracranial hemorrhage, midline shift, intracranial mass, hydrocephalus, territorial ischemia or abnormal extra-axial collection. Involutional changes with chronic microvascular ischemic disease. Chronic left parieto-occipital infarct with encephalomalacia. Ex vacuo ventriculomegaly of the atria and posterior horn left lateral ventricle. Additional chronic lacunar infarcts in the right frontal lobe haji radiata and lentiform nucleus. Cerebra l vascular calcifications. The calvarium is intact. Minimal mucosal thickening of the dependent right maxillary sinus. Mastoid air cells are generally clear. IMPRESSION: 1. No acute intracranial abnormality identified. 2. Chronic left parieto-occipital infarct. 3. Involutional changes with chronic microvascular ischemic disease. ACT 112: Negative or not required by law. The above report was generated using voice recognition software. It may contain grammatical, syntax or spelling errors. Electronically signed by: Maxwell Romero M.D. 05/06/2024 3:54 PM Shoulder X-Ray 05/07/24 09:48 SINGLE VIEW LEFT SHOULDER CLINICAL HISTORY: Left shoulder pain. FINDINGS: A single view of the left shoulder is compared to study dated 05/06/2024. The skeletal structures are osteopenic. Again seen is a minimally displaced fracture of the distal left clavicle. Overlying soft tissue edema is observed. The acromioclavicular joint appears maintained. Glenohumeral joint alignment is grossly anatomic. A pacemaker is partially visualized. The imaged left lung parenchyma appears clear. IMPRESSION: A distal left clavicular fracture is again noted. Electronically signed by: Carlos Vicente M.D. 05/07/2024 3:42 PM
[2024-05-09] MEDS: oxyCODONE HCL IR 5 MG TAB (IMMEDIATE RELEASE) PO PRN (19:14)
[2024-05-10 06:14] LABS: BUN Creatinine Ratio 18.2 (10-20); Calcium 9.3 mg/dl (8.6-10.3); Creatinine Clr Calc Pharmacy 77.5 ml/min; Potassium 3.7 mmol/L (3.5-5.1)
[2024-05-10] MEDS: SODIUM CHLORIDE 0.65% NA SOLN 45 ML (OCEAN) PRN (09:18)
[2024-05-10] MEDS: HYDROmorphone HCL 2 MG TAB PO PRN (12:46)
--- NOTE | 2024-05-10 14:05 | Hospitalist Progress Note ---
<Statement entered by Doreen Shaw MD - 05/10/24 17:49> I have reviewed vital signs, chart notes, labs and imaging. I have personally seen, evaluated and examined the patient. I have also discussed the management of the patient with the [facility] and I agree with the exam findings documented in the history and physical examination and the documented assessment and plan unless otherwise stated below. 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 plan as below optimizing pain control anticipating discharge to intermediate for rehab Date of Service May 10, 2024 Assessment & Plan (1) Fall: Plan: Patient sustained a witnessed ground-level fall on the afternoon of 05/06 after tripping on her chair; no LOC; no head strike; landed on her left side - Distal left clavicular fracture and superior/inferior pubic ramus fracture on arrival - Head/cervical spine CT without acute findings - 25OH Vitamin D WNL at 64.8 - Pain regimen: > Scheduled Tylenol > Started oxycodone IR 5 mg PRN for moderate pain in replace of tramadol to start transitioning to oral pain meds - patient reports nausea and no pain relief with this, but does tolerate Dilaudid well. Transition to 2mg oral Dilaudid Q4 hours PRN. > IV Dilaudid PRN for severe pain - Ortho consulted: > Clavicle fracture: Range of motion as tolerated. Sling for comfort. Cool compresses. Okay to be out of sling to use platform walker. > Pubic ramus fracture: Weight-bear as tolerated. Platform walker. - PT/OT consulted - recommending rehab. Referral made to [facility] - awaiting placement. - Patient is medically stable and [facility], however remains on PCU/telemetry given trauma alert on admission per protocol (2) Fracture of superior pubic ramus: Plan: A/P CT revealed acute left superior and inferior rami fractures; no active extravasation Pain management (as above) (3) Closed fracture of distal clavicle: Plan: Left shoulder x-ray on arrival suggestive of acute distal clavicular fracture without significant displacement Sling application/immobilization Pain management (as above) (4) Obstructive sleep apnea: Plan: CPAP at bedtime (5) Constipation: Plan: - Small BM yesterday - Miralax daily PRN - Dulcolax added PRN Plan Continue inpatient hospitalization while awaiting rehab placement Patient is medically stable and can be downgraded to [facility] if needed for bed availability, however remains on PCU/telemetry given trauma alert on admission per protocol VTE PPx: Lovenox CODE STATUS: Full code Admission and Anticipated Discharge Date Admission Date: May 06, 2024 Jame Santos is a 74-year-old female admitted with a left clavicle fracture and left inferior and superior pubic rami fracture. She is awaiting rehab placement. Patient seen and evaluated at bedside. She reports that when she takes the oxycodone it makes her nauseous and does not help the pain. She reports the IV dilaudid does help her pain and does not cause nausea. She got a dose approx 25 min prior to examination, and states it took her L shoulder and L hip pain from a 7/10 to a 5/10. Dilaudid does make her a little drowsy, but reports poor sleep over the past couple of days. Otherwise, denies any negative SE from Dilaudid. She reports some anxiety surrounding activities, including transferring from bed to bedside commode because she is afraid that it will be painful. Encouraged her to have a dose of pain medication prior to PT. She does report constipation today. Reports small BM yesterday, but has a hx of small bowel obstruction x 2 in the past (one of which required surgery). Continue inpatient stay while awaiting rehab placement. No additional complaints or concerns at this time. Review of Systems Constitutional: no fever and no chills Respiratory: no cough, no chest congestion, no dyspnea and no dyspnea on exertion Cardiovascular: no chest pain Gastrointestinal: + nausea (with Oxycodone) and + constipa tion; no abdominal pain, no bloating and no vomiting Genitourinary: no dysuria, no urinary frequency (Purewick in place), no urinary hesitancy and no urinary urgency Musculoskeletal: as per Subjective / HPI Physical Exam Constitutional: well nourished; no acute distress Eyes: PERRL Respiratory: normal respiratory effort; no respiratory distress, no labored breathing and no cough Auscultation: lungs clear to auscultation bilaterally; no crackles and no wheezes Cardiovascular: RRR, no murmur, no edema Extremities: no edema Gastrointestinal (Abdomen): Inspection/Auscultation: normal bowel sounds Percussion/Palpation: abdomen soft; abdomen nontender Psychiatric: Orientation: alert and oriented x 3 Results & Data Results & Data Vital Signs (Past 12 Hours) Vital Signs Temp Pulse Pulse Resp BP Pulse Ox O2 Del Method 05/10/24 13:47 89 05/10/24 11:09 36.5 C 66 17 158/89 H 94 Nasal Cannula 05/10/24 08:37 Nasal Cannula 05/10/24 07:41 84 05/10/24 07:34 36.8 C 90 17 170/98 H 93 Nasal Cannula 05/10/24 02:39 36.6 C 76 18 181/72 H 96 Nasal Cannula O2 Flow Rate 05/10/24 13:47 05/10/24 11:09 2 05/10/24 08:37 2 05/10/24 07:41 05/10/24 07:34 2 05/10/24 02:39 2 PG Care Time/CCT Total # of Minutes Spent Total Time Spent with Patient: Total time spent is greater than 50% in coordination of care (as documented) at patient's floor/unit and/or counseling patient: Coding [place] [address] SUB INP/OBS CARE 2/35MIN Patient Type Established History Expanded Problem Focused Exam Expanded Problem Focused Medical Decision Making Moderate Complexity Diagnoses Fall, initial encounter W19.XXXA Encounter type: initial encounter Closed fracture of superior ramus of pubis, unspecified laterality, initial encounter S32.519A Encounter type: initial encounter Fracture type: closed Laterality: unspecified laterality Closed nondisplaced fracture of acromial end of left clavicle, initial encounter S42.035A Encounter type: initial encounter Fracture alignment: nondisplaced Laterality: left Obstructive sleep apnea G47.33 Constipation K59.00 (1) Fall Encounter type: initial encounter Qualified Code(s): W19.XXXA - Unspecified fall, initial encounter (2) Fracture of superior pubic ramus Encounter type: initial encounter Fracture type: closed Laterality: unspecified laterality Qualified Code(s): S32.519A - Fracture of superior rim of unspecified pubis, initial encounter for closed fracture (3) Closed fracture of distal clavicle Encounter type: initial encounter Fracture alignment: nondisplaced Laterality: left Qualified Code(s): S42.035A - Nondisplaced fracture of lateral end of left clavicle, initial encounter for closed fracture
[2024-05-10] MEDS ORDERED: bisacodyL 5 MG TABEC PO PRN (14:46)
[2024-05-11] MEDS: hydrALAZINE TAB 50 MG TAB PO SCH (12:25)
[2024-05-11] MEDS: HYDROmorphone HCL 2 MG TAB PO PRN (12:25)
[2024-05-11] MEDS: KETOROLAC TROMETHAMINE 15 MG/ML VIAL IV ONE (14:25)
--- NOTE | 2024-05-11 17:00 | Hospitalist Progress Note ---
Date of Service May 11, 2024 Assessment & Plan (1) Fall: Plan: Patient sustained a witnessed ground-level fall on the afternoon of 05/06 after tripping on her chair; no LOC; no head strike; landed on her left side - Distal left clavicular fracture and superior/inferior pubic ramus fracture on arrival - Head/cervical spine CT without acute findings - 25OH Vitamin D WNL at 64.8 - Pain regimen: > Scheduled Tylenol > Changed from PO oxycodone to PO diluadid, tolerating well but not effective pain relief so increase dose to 3mg Q4 hours PRN with IV dilaudid for breakthrough. Did give a one time dose of Toradol, but will not continue or schedule due to risk of bleeding. > IV Dilaudid PRN for severe pain, but goal being to transition to oral for discharge. - Ortho consulted: > Clavicle fracture: Range of motion as tolerated. Sling for comfort. Cool compresses. Okay to be out of sling to use platform walker. > Pubic ramus fracture: Weight-bear as tolerated. Platform walker. - PT/OT consulted - recommending rehab. Referral made to [facility] - awaiting placement. - Patient is medically stable and can be downgraded to MedSurg if needed for bed availability, however remains on PCU/telemetry given trauma alert on admission per protocol (2) Fracture of superior pubic ramus: Plan: A/P CT revealed acute left superior and inferior rami fractures; no active extravasation Pain management (as above) (3) Closed fracture of distal clavicle: Plan: Left shoulder x-ray on arrival suggestive of acute distal clavicular fracture without significant displacement Sling application/immobilization Pain management (as above) (4) Obstructive sleep apnea: Plan: CPAP at bedtime (5) Constipation: Plan: - Miralax daily PRN - Dulcolax added PRN Plan Continue inpatient hospitalization while awaiting rehab placement Patient is medically stable and can be downgraded to MedSurg if needed for bed availability, however remains on PCU/telemetry given trauma alert on admission per protocol VTE PPx: Lovenox CODE STATUS: Full code Admission and Anticipated Discharge Date Admission Date: May 06, 2024 Jame Santos is a 74-year-old female admitted with a left clavicle fracture and left inferior and superior pubic rami fracture. She is awaiting rehab placement. Patient seen and evaluated at bedside. She reports that when she takes the oxycodone it makes her nauseous and does not help the pain so she was switched PO dilaudid yesterday. She is tolerating this well but reports it just takes the edge off of her pain. She reports the IV dilaudid helps her pain a lot more. She continues with pain in her L shoulder and L hip pain. Dilaudid does make her a little drowsy. She reports intermittent sleep throughout the night. She reports some anxiety surrounding activities, including transferring from bed to bedside commode because she is afraid that it will be painful. Encouraged her to have a dose of pain medication prior to PT. She does report constipation today. Started with vegetables yesterday and her brought her some smith soup. She did not take a dose of the Dulcolax but has been taking the miralax. Continue inpatient stay while awaiting rehab placement. No additional complaints or concerns at this time. Review of Systems Review of Systems: See HPI above Constitutional: no fever and no chills Respiratory: no cough, no chest congestion, no dyspnea and no dyspnea on exertion Cardiovascular: no chest pain Gastrointestinal: + nausea (with Oxycodone) and + constipa tion; no abdominal pain, no bloating and no vomiting Genitourinary: no dysuria, no urinary frequency (Purewick in place), no urinary hesitancy and no urinary urgency Musculoskeletal: as per Subjective / HPI Physical Exam Constitutional: well nourished; no acute distress Eyes: PERRL Respiratory: normal respiratory effort; no respiratory distress, no labored breathing and no cough Auscultation: lungs clear to auscultation bilaterally; no crackles and no wheezes Cardiovascular: RRR, no murmur, no edema Extremities: no edema Gastrointestinal (Abdomen): Inspection/Auscultation: normal bowel sounds Percussion/Palpation: abdomen soft; abdomen nontender Psychiatric: Orientation: alert and oriented x 3 Results & Data Results & Data Vital Signs (Past 12 Hours) Vital Signs Temp Pulse Pulse Resp BP Pulse Ox O2 Del Method 05/11/24 15:56 36.5 C 85 20 116/74 96 Nasal Cannula 05/11/24 14:21 87 05/11/24 12:23 36.4 C L 73 20 156/92 H 95 Nasal Cannula 05/11/24 07:41 Nasal Cannula 05/11/24 07:34 36.5 C 77 20 188/90 H 96 Nasal Cannula 05/11/24 07:17 76 O2 Flow Rate 05/11/24 15:56 2 05/11/24 14:21 05/11/24 12:23 2 05/11/24 07:41 2 05/11/24 07:34 2 05/11/24 07:17 PG Care Time/CCT Total # of Minutes Spent Total Time Spent with Patient: Total time spent is greater than 50% in coordination of care (as documented) at patient's floor/unit and/or counseling patient: C[place] [address] SUB INP/OBS CARE 2/35MIN Patient Type Established History Expanded Problem Focused Exam Expanded Problem Focused Medical Decision Making Moderate Complexity Diagnoses Fall, initial encounter W19.XXXA Encounter type: initial encounter Closed fracture of superior ramus of pubis, unspecified laterality, initial encounter S32.519A Encounter type: initial encounter Fracture type: closed Laterality: unspecified laterality Closed nondisplaced fracture of acromial end of left clavicle, initial encounter S42.035A Encounter type: initial encounter Fracture alignment: nondisplaced Laterality: left Obstructive sleep apnea G47.33 Constipation K59.00 (1) Fall Encounter type: initial encounter Qualified Code(s): W19.XXXA - Unspecified fall, initial encounter (2) Fracture of superior pubic ramus Encounter type: initial encounter Fracture type: closed Laterality: unspecified laterality Qualified Code(s): S32.519A - Fracture of superior rim of unspecified pubis, initial encounter for closed fracture (3) Closed fracture of distal clavicle Encounter type: initial encounter Fracture alignment: nondisplaced Laterality: left Qualified Code(s): S42.035A - Nondisplaced fracture of lateral end of left clavicle, initial encounter for closed fracture
[2024-05-12] MEDS: HYDROmorphone INJ 0.5 MG/0.5 ML SYR IV PRN (10:20)
--- NOTE | 2024-05-12 10:27 | XRay Report ---
LEFT CLAVICLE 2 VIEWS CLINICAL HISTORY: Left clavicular fracture. FINDINGS: 2 views of the left clavicle are correlated with left shoulder radiographs dated 05/07/2024. The skeletal structures are osteopenic. There is unchanged alignment of a subacute and mildly displa kiersten fracture of the distal left clavicle. No new fracture is seen. The sternoclavicular and acromiocl avicular joints are grossly maintained. The glenohumeral articulation appears preserved. The overlyin g soft tissues are normal as visualized. The imaged left apical lung parenchyma appears clear. A card iac pacemaker is partially visualized. IMPRESSION: Unchanged alignment of a distal left clavicular fracture as compared to previous. Electronically signed by: Carlos Vicente M.D. 05/12/2024 10:25 AM
--- NOTE | 2024-05-12 16:00 | XRay Report ---
XR pelvis 1-2V routine CLINICAL HISTORY: superior rami fracture TECHNIQUE: A single frontal view of the pelvis was obtained. Comparison: Comparison is made to hip radiographs 05/06/2024 FINDINGS: Fractures of the superior and inferior rami are seen. Degenerative changes are seen in the hip joints and lumbar spine. Vascular calcifications are seen. IMPRESSION: Fractures of the left superior-inferior rami. ACT 112: Negative or not required by law. Electronically signed by: Gagandeep Fernandez M.D. 05/12/2024 3:58 PM
--- NOTE | 2024-05-12 16:42 | Hospitalist Progress Note ---
Date of Service May 12, 2024 Assessment & Plan (1) Fall: Plan: Patient sustained a witnessed ground-level fall on the afternoon of 05/06 after tripping on her chair; no LOC; no head strike; landed on her left side - Distal left clavicular fracture and superior/inferior pubic ramus fracture on arrival - Head/cervical spine CT without acute findings - 25OH Vitamin D WNL at 64.8 - Pain regimen: > Scheduled Tylenol > Changed from PO oxycodone to PO diluadid, tolerating well but not effective pain relief so increase dose to 3mg Q4 hours PRN - prn IV dilaudid for breakthough, dose reduced. discussed will not be continue at discharge - encourage ice - Ortho consulted: > Clavicle fracture: Range of motion as tolerated. Sling for comfort. Cool compresses. Okay to be out of sling to use platform walker. > Pubic ramus fracture: Weight-bear as tolerated. Platform walker. - PT/OT consulted - recommending rehab. Referral made to [facility] - awaiting placement. - Patient is medically stable and can be downgraded to MedSurg if needed for bed availability, however remains on PCU/telemetry given trauma alert on admission per protocol (2) Fracture of superior pubic ramus: Plan: A/P CT revealed acute left superior and inferior rami fractures; no active extravasation Pain management (as above) (3) Closed fracture of distal clavicle: Plan: Left shoulder x-ray on arrival suggestive of acute distal clavicular fracture without significant displacement Sling application/immobilization Pain management (as above) (4) Obstructive sleep apnea: Plan: CPAP at bedtime (5) Constipation: Plan: - Miralax daily PRN - Dulcolax added PRN Plan Continue inpatient hospitalization while awaiting rehab placement Patient is medically stable and can be downgraded to MedSurg if needed for bed availability, however remains on PCU/telemetry given trauma alert on admission per protocol VTE PPx: Lovenox CODE STATUS: Full code Admission and Anticipated Discharge Date Admission Date: May 06, 2024 Subjective patient seen sititng up in the chair prior to lunch, sleeping on my arrival does have pain with movement and feels short of breath Tele - Paced 70-80s Review of Systems Review of Systems: All systems reviewed & are unremarkable except as noted in Subjective Physical Exam Physical Exam: General: NAD, VS as above Resp: normal respiratory effort, lungs clear to auscultation, weaned to room air and maintained 94% during my encounter CV: RRR, no murmur, Extremities: Moves all extremities, left sling in place, able to move fingers distally Neuro: A&O x3, Skin: intact, no lesions noted Results & Data Results & Data Vital Signs (Past 12 Hours) Vital Signs Temp Pulse Pulse Resp BP Pulse Ox O2 Del Method 05/12/24 16:31 98.1 F 86 18 123/71 91 Room Air 05/12/24 14:24 81 05/12/24 11:33 97.7 F 76 17 124/75 95 Nasal Cannula 05/12/24 07:53 97.9 F 75 17 171/91 H 93 CPAP 05/12/24 07:00 81 O2 Flow Rate 05/12/24 16:31 05/12/24 14:24 05/12/24 11:33 2 05/12/24 07:53 05/12/24 07:00 PG Care Time/CCT Total # of Minutes Spent Total Time Spent with Patient: Total time spent is greater than 50% in coordination of care (as documented) at patient's floor/unit and/or counseling patient: Coding Level of Care Code 65844 SUB INP/OBS CARE 08/30MIN Diagnoses Fall, initial encounter W19.XXXA Encounter type: initial encounter Closed fracture of superior ramus of pubis, unspecified laterality, initial encounter S32.519A Encounter type: initial encounter Fracture type: closed Laterality: unspecified laterality Closed nondisplaced fracture of acromial end of left clavicle, initial encounter S42.035A Encounter type: initial encounter Fracture alignment: nondisplaced Laterality: left Obstructive sleep apnea G47.33 Constipation K59.00 (1) Fall Encounter type: initial encounter Qualified Code(s): W19.XXXA - Unspecified fall, initial encounter (2) Fracture of superior pubic ramus Encounter type: initial encounter Fracture type: closed Laterality: unspecified laterality Qualified Code(s): S32.519A - Fracture of superior rim of unspecified pubis, initial encounter for closed fracture (3) Closed fracture of distal clavicle Encounter type: initial encounter Fracture alignment: nondisplaced Laterality: left Qualified Code(s): S42.035A - Nondisplaced fracture of lateral end of left clavicle, initial encounter for closed fracture
--- NOTE | 2024-05-13 13:29 | Hospitalist Progress Note ---
Date of Service May 13, 2024 Assessment & Plan (1) Fall: Plan: Patient sustained a witnessed ground-level fall on the afternoon of 05/06 after tripping on her chair; no LOC; no head strike; landed on her left side - Distal left clavicular fracture and superior/inferior pubic ramus fracture on arrival - Head/cervical spine CT without acute findings - 25OH Vitamin D WNL at 64.8 - Pain regimen: > Scheduled Tylenol > Changed from PO oxycodone to PO diluadid, tolerating well but not effective pain relief so increase dose to 3mg Q4 hours PRN - prn IV dilaudid for breakthough, dose reduced. discussed will not be continue at discharge - encourage ice - Ortho consulted: > Clavicle fracture: Range of motion as tolerated. Sling for comfort. Cool compresses. Okay to be out of sling to use platform walker. > Pubic ramus fracture: Weight-bear as tolerated. Platform walker. - PT/OT consulted - recommending rehab. Referral made to [facility] - awaiting placement. - Patient is medically stable and can be downgraded to MedSurg if needed for bed availability, however remains on PCU/telemetry given trauma alert on admission per protocol (2) Fracture of superior pubic ramus: Plan: A/P CT revealed acute left superior and inferior rami fractures; no active extravasation Pain management (as above) (3) Closed fracture of distal clavicle: Plan: Left shoulder x-ray on arrival suggestive of acute distal clavicular fracture without significant displacement Sling application/immobilization Pain management (as above) (4) Obstructive sleep apnea: Plan: CPAP at bedtime (5) Constipation: Plan: - Miralax daily PRN - Dulcolax added PRN Plan Continue inpatient hospitalization while awaiting rehab placement Patient is medically stable and can be downgraded to MedSurg if needed for bed availability, however remains on PCU/telemetry given trauma alert on admission per protocol VTE PPx: Lovenox updated at bedside 05/13 Admission and Anticipated Discharge Date Admission Date: May 06, 2024 Supervising Physician Co-Signing Physician Notes Attending Attestation - Chart reviewed, care plan d/w ANKIT Mejia. I agree w/ the angel components of her documentation. Slow progression with mobility. Recheck labs in am for stability. Dispo planning. Jens Alejandre MD Subjective patient seen sitting up in bed, pain is more controlled today. States that she feels like she is in a waiting pattern. I encouraged her to get out of bed and be moving while she is still here waiting for rehab. She then asked me if she would be able to use a bedpan after she is discharged from rehab and I told her that we would encourage her to work with therapy so that she does not need a bedpan. Aware that she will not have IV pain medication upon discharge Telemetrypaced 70s to 90s Review of Systems Review of Systems: All systems reviewed & are unremarkable except as noted in Subjective Physical Exam Physical Exam: General: NAD, VS as above Resp: normal respiratory effort, lungs clear to auscultation, on room air CV: RRR, no murmur, Extremities: Moves all extremities, left sling in place, able to move fingers distally Neuro: A&O x3, Skin: intact, no lesions noted Results & Data Results & Data Vital Signs (Past 12 Hours) Vital Signs Temp Pulse Pulse Resp BP Pulse Ox O2 Del Method 05/13/24 11:27 98.2 F 83 17 162/81 H 93 Room Air 05/13/24 08:00 05/13/24 07:48 98.1 F 71 18 160/75 H 92 Room Air 05/13/24 07:00 82 05/13/24 02:50 97.9 F 85 15 130/81 93 CPAP O2 Del Method 05/13/24 11:27 05/13/24 08:00 Room Air 05/13/24 07:48 05/13/24 07:00 05/13/24 02:50 PG Care Time/CCT Total # of Minutes Spent Total Time Spent with Patient: Total time spent is greater than 50% in coordination of care (as documented) at patient's floor/unit and/or counseling patient: Coding Level of Care Code 21151 SUB INP/OBS CARE 08/30MIN Diagnoses Fall, initial encounter W19.XXXA Encounter type: initial encounter Closed fracture of superior ramus of pubis, unspecified laterality, initial encounter S32.519A Encounter type: initial encounter Fracture type: closed Laterality: unspecified laterality Closed nondisplaced fracture of acromial end of left clavicle, initial encounter S42.035A Encounter type: initial encounter Fracture alignment: nondisplaced Laterality: left Obstructive sleep apnea G47.33 Constipation K59.00 (1) Fall Encounter type: initial encounter Qualified Code(s): W19.XXXA - Unspecified fall, initial encounter (2) Fracture of superior pubic ramus Encounter type: initial encounter Fracture type: closed Laterality: unspecified laterality Qualified Code(s): S32.519A - Fracture of superior rim of unspecified pubis, initial encounter for closed fracture (3) Closed fracture of distal clavicle Encounter type: initial encounter Fracture alignment: nondisplaced Laterality: left Qualified Code(s): S42.035A - Nondisplaced fracture of lateral end of left clavicle, initial encounter for closed fracture
--- NOTE | 2024-05-13 15:40 | Orthopedic Progress Note ---
Date of Service May 13, 2024 Assessment & Plan (1) Clavicle fracture: Plan: Radiographs 1 week status post injury of been ordered and reviewed. There is a minimally displaced fracture of the left anterior pubic ring. There is known from CT scan a posterior sacral injury as well. The alignment overall is acceptable and has not changed significantly. Radiographs of the left clavicle show a probable intraligamentous type I distal clavicle fracture without sign ificant displacement. Patient is awaiting placement. Recommend using the platform walker if this helps. She may weight-bear as tolerated. (2) Closed fracture of superior pubic ramus: (3) Fracture of inferior pubic ramus: Admission and Anticipated Discharge Date Admission Date: May 06, 2024
[2024-05-14 07:01] LABS: Hematocrit (blood only) 38.5 % (37.0-47.0); Mean Corpuscular Hemoglobin 28.3 pg (25.0-34.0); Mean Corpuscular Hgb Conc 33.8 g/dL (32.0-36.0); Mean Corpuscular Volume 83.9 fL (80.0-100.0); Mean Platelet Volume 9.8 fL (9.4-12.4); Platelet Count 331 K/uL (130-400); RDW Coefficient of Variation 14.3 % (11.5-14.5); RDW Standard Deviation 43.5 fL (36.4-46.3); Red Blood Count 4.59 M/uL (4.20-5.40)
[2024-05-14 07:37] LABS: BUN Creatinine Ratio 20.7 (10-20); Calcium 9.7 mg/dl (8.6-10.3); Creatinine Clr Calc Pharmacy 81.6 ml/min; Potassium 4.1 mmol/L (3.5-5.1)
--- NOTE | 2024-05-14 10:18 | Hospitalist Progress Note ---
Date of Service May 14, 2024 Assessment & Plan (1) Fall: Plan: Patient sustained a witnessed ground-level fall on the afternoon of 05/06 after tripping on her chair; no LOC; no head strike; landed on her left side - Distal left clavicular fracture and superior/inferior pubic ramus fracture on arrival - Head/cervical spine CT without acute findings - 25OH Vitamin D WNL at 64.8 - Pain regimen: Scheduled tylenol, prn PO Dilaudid - encourage ice, IV pain medicine d/c - Ortho consulted: - Clavicle fracture: Range of motion as tolerated. Sling for comfort. Cool compresses. Okay to be out of sling to use platform walker. - Pubic ramus fracture: Weight-bear as tolerated. Platform walker. - 1 week xrays stable - PT/OT consulted - recommending rehab. Referral made to [facility] - awaiting placement. - Patient is medically stable and can be downgraded to MedSurg if needed for bed availability, however remains on PCU/telemetry given trauma alert on admission per protocol (2) Fracture of superior pubic ramus: Plan: A/P CT revealed acute left superior and inferior rami fractures; no active extravasation Pain management (as above) (3) Closed fracture of distal clavicle: Plan: Left shoulder x-ray on arrival suggestive of acute distal clavicular fracture without significant displacement Sling application/immobilization Pain management (as above) (4) Obstructive sleep apnea: Plan: CPAP at bedtime (5) Constipation: Plan: - Miralax daily PRN - Dulcolax added PRN Plan Continue inpatient hospitalization while awaiting rehab placement Patient is medically stable and can be downgraded to MedSurg if needed for bed availability, however remains on PCU/telemetry given trauma alert on admission per protocol VTE PPx: Lovenox updated at bedside 05/13, 05/14 Admission and Anticipated Discharge Date Admission Date: May 06, 2024 Supervising Physician Co-Signing Physician Notes Attending Attestation - Chart reviewed, care plan d/w ANKIT Mejia. I agree w/ the angel components of her documentation. Appreciate orthopedic input & assistance. Jens Alejandre MD Subjective Patient seen sitting up in bed, present at bedside. States that she feels like she is doing better, able to lift her leg this morning. Had a BM, good appetite. Encouraged OOB Tele - Paced 80-90s Review of Systems Review of Systems: All systems reviewed & are unremarkable except as noted in Subjective Physical Exam Physical Exam: General: NAD, VS as above Resp: normal respiratory effort, lungs clear to auscultation, on room air CV: RRR, no murmur, Extremities: Moves all extremities, left sling in place, able to move fingers distally. Demonstrates left leg lift in bed Neuro: A&O x3, Skin: intact, no lesions noted Results & Data Results & Data Vital Signs (Past 12 Hours) Vital Signs Temp Pulse Pulse Resp BP Pulse Ox Pulse Ox 05/14/24 09:07 92 H 05/14/24 08:20 93 05/14/24 07:37 97.3 F L 67 176/76 H 93 05/14/24 02:48 76 18 155/76 H 93 05/13/24 22:43 75 18 145/75 H 93 O2 Del Method O2 Del Method 05/14/24 09:07 05/14/24 08:20 Room Air 05/14/24 07:37 Room Air 05/14/24 02:48 Room Air, CPAP 05/13/24 22:43 Room Air, CPAP Laboratory Results CBC and chemistry reviewed Diagnostic Findings pelvis, clavicle and shoulder xray reviewed PG Care Time/CCT Total # of Minutes Spent Total Time Spent with Patient: Total time spent is greater than 50% in coordination of care (as documented) at patient's floor/unit and/or counseling patient: Coding Level of Care Code 84660 SUB INP/OBS CARE 2/35MIN Diagnoses Fall, initial encounter W19.XXXA Encounter type: initial encounter Closed fracture of superior ramus of pubis, unspecified laterality, initial encounter S32.519A Encounter type: initial encounter Fracture type: closed Laterality: unspecified laterality Closed nondisplaced fracture of acromial end of left clavicle, initial encounter S42.035A Encounter type: initial encounter Fracture alignment: nondisplaced Laterality: left Obstructive sleep apnea G47.33 Constipation K59.00 (1) Fall Encounter type: initial encounter Qualified Code(s): W19.XXXA - Unspecified fall, initial encounter (2) Fracture of superior pubic ramus Encounter type: initial encounter Fracture type: closed Laterality: unspecified laterality Qualified Code(s): S32.519A - Fracture of superior rim of unspecified pubis, initial encounter for closed fracture (3) Closed fracture of distal clavicle Encounter type: initial encounter Fracture alignment: nondisplaced Laterality: left Qualified Code(s): S42.035A - Nondisplaced fracture of lateral end of left clavicle, initial encounter for closed fracture
--- NOTE | 2024-05-14 10:27 | Orthopedic Progress Note ---
Date of Service May 14, 2024 Assessment & Plan (1) Clavicle fracture: Plan: Left distal clavicle fracture Recent x-rays show the alignment is acceptable. Suggest probable intraligamentous type I distal clavicle fracture. Will plan to continue to treat conservatively. Sling for comfort. She may do range of motion as tolerated of the left upper extremity joints. No heavy pushing pulling or lifting. Continues to the platform walker for ambulation. May use arm for light daily activities. Follow-up with Dr. Montelongo as scheduled as an outpatient. (2) Closed fracture of superior pubic ramus: Plan: Recent x-rays were reviewed by Dr. Montelongo. There is a minimally displaced fracture of the left anterior pubic ring. She also has, evident from her CT a small sacral fracture. Alignment is acceptable of all fractures. Will continue closed care conservative treatment. She may be out of bed as tolerated. May weight-bear as tolerated left lower extremity. Use walker to assist with ambulation at all times. May do full range of motion of her left hip, knee and ankle as tolerated. Ice and elevation as needed for pain and swelling. Okay from orthopedic standpoint for discharge when medically stable. Follow-up with Dr. Montelongo in approximately 3 weeks for reassessment as an outpatient. (3) Fracture of inferior pubic ramus: Admission and Anticipated Discharge Date Admission Date: May 06, 2024 Subjective Danielle states that she is "doing about the same". She continues to have pain of her left hip and groin area with any type of movement. She also has some discomfort in the left shoulder does think that she is moving it better. She is waiting for placement to either [facility] or [facility]. She states that she has been out of bed. She does feel that the platform walker is helpful. Denies any new pain today. Physical Exam Musculoskeletal: Exam of her left upper extremity: She has no significant edema of her left shoulder. She is able to left her arm actively. No edema. Skin is intact. Sling was adjusted and reapplied. Exam of her left lower extremity: No significant edema of her left leg. She is able to actively lift her leg about a centimeter off the bed. She can bend her knee about 50 degrees actively. Skin is intact. This movement does reproduce some pain in her left groin. Results & Data Vital Signs (Past 12 Hours) Vital Signs Temp Pulse Pulse Resp BP Pulse Ox Pulse Ox 05/14/24 09:07 92 H 05/14/24 08:20 93 05/14/24 07:37 36.3 C L 67 176/76 H 93 05/14/24 02:48 76 18 155/76 H 93 05/13/24 22:43 75 18 145/75 H 93 O2 Del Method O2 Del Method 05/14/24 09:07 05/14/24 08:20 Room Air 05/14/24 07:37 Room Air 05/14/24 02:48 Room Air, CPAP 05/13/24 22:43 Room Air, CPAP Laboratory Results 05/14/24 Range/Units 05:40 WBC 6.80 (4.8-10.8) K/ul RBC 4.59 (4.20-5.40) M/uL Hgb 13.0 (12.0-16.0) g/dl Hct 38.5 (37.0-47.0) % MCV 83.9 (80.0-100.0) fL MCH 28.3 (25.0-34.0) pg MCHC 33.8 (32.0-36.0) g/dL RDW Std Deviation 43.5 (36.4-46.3) fL RDW Coeff of Lion 14.3 (11.5-14.5) % Plt Count 331 (130-400) K/uL MPV 9.8 (9.4-12.4) fL Sodium 138 (136-145) mmol/L Potassium 4.1 (3.5-5.1) mmol/L Chloride 105 (98-107) mmol/L Carbon Dioxide 26 (21-32) mmol/L Anion Gap 7 (3-11) BUN 12 (6-23) mg/dl Creatinine 0.58 L (0.6-1.2) mg/dl Est Cr Clr Drug Dosing 81.6 ml/min eGFR 94.90 BUN/Creatinine Ratio 20.7 H (10-20) Glucose 94 (70-99(Fasting)) mg/dl Calcium 9.7 (8.6-10.3) mg/dl
--- NOTE | 2024-05-15 13:37 | Hospitalist Progress Note ---
Date of Service May 15, 2024 Assessment & Plan (1) Fall: Plan: Patient sustained a witnessed ground-level fall on the afternoon of 05/06 after tripping on her chair; no LOC; no head strike; landed on her left side - Distal left clavicular fracture and superior/inferior pubic ramus fracture on arrival - Head/cervical spine CT without acute findings - 25OH Vitamin D WNL at 64.8 - Pain regimen: Scheduled tylenol, prn PO Dilaudid - encourage ice, IV pain medicine d/c - Ortho consulted: - Clavicle fracture: Range of motion as tolerated. Sling for comfort. Cool compresses. Okay to be out of sling to use platform walker. - Pubic ramus fracture: Weight-bear as tolerated. Platform walker. - 1 week xrays stable - PT/OT consulted - recommending rehab. Referral made to [facility] - awaiting placement. - Patient is medically stable and can be downgraded to MedSurg if needed for bed availability, however remains on PCU/telemetry given trauma alert on admission per protocol (2) Fracture of superior pubic ramus: Plan: A/P CT revealed acute left superior and inferior rami fractures; no active extravasation Pain management (as above) (3) Closed fracture of distal clavicle: Plan: Left shoulder x-ray on arrival suggestive of acute distal clavicular fracture without significant displacement Sling application/immobilization Pain management (as above) (4) Obstructive sleep apnea: Plan: CPAP at bedtime (5) Constipation: Plan: - Miralax daily PRN - Dulcolax added PRN Plan Continue inpatient hospitalization while awaiting rehab placement Patient is medically stable and can be downgraded to MedSurg if needed for bed availability, however remains on PCU/telemetry given trauma alert on admission per protocol VTE PPx: Lovenox updated at bedside 05/13, 05/14 Admission and Anticipated Discharge Date Admission Date: May 06, 2024 Supervising Physician Co-Signing Physician Notes Attending Attestation - Chart reviewed, care plan d/w ANKIT Mejia. I agree w/ the angel components of her documentation. Jens Alejandre MD Subjective patient seen sitting up in the chair, just worked with therapy and feeling little bit sore. Has ice on her arm in pelvis and states this is helping Moving her bowels, good appetite with the food that her brings in. Still waiting with placement no acute concerns Tele 70-80s Review of Systems Review of Systems: All systems reviewed & are unremarkable except as noted in Subjective Physical Exam Physical Exam: General: NAD, VS as above Resp: normal respiratory effort, lungs clear to auscultation, on room air CV: RRR, no murmur, Extremities: Moves all extremities, left sling in place, able to move fingers distally Neuro: A&O x3, Skin: intact, no lesions noted Results & Data Results & Data Vital Signs (Past 12 Hours) Vital Signs Temp Pulse Pulse Resp BP BP Pulse Ox 05/15/24 12:46 97.0 F L 72 20 154/72 H 92 05/15/24 08:14 05/15/24 07:45 98.1 F 76 20 190/81 H 93 05/15/24 07:34 81 05/15/24 02:49 70 18 139/75 94 O2 Del Method 05/15/24 12:46 Room Air 05/15/24 08:14 Room Air 05/15/24 07:45 Room Air 05/15/24 07:34 05/15/24 02:49 Room Air, CPAP PG Care Time/CCT Total # of Minutes Spent Total Time Spent with Patient: Total time spent is greater than 50% in coordination of care (as documented) at patient's floor/unit and/or counseling patient: Coding Level of Care Code 27729 SUB INP/OBS CARE 1/MIN Diagnoses Fall, initial encounter W19.XXXA Encounter type: initial encounter Closed fracture of superior ramus of pubis, unspecified laterality, initial enc ounter S32.519A Encounter type: initial encounter Fracture type: closed Laterality: unspecified laterality Closed nondisplaced fracture of acromial end of left clavicle, initial encounter S42.035A Encounter type: initial encounter Fracture alignment: nondisplaced Laterality: left Obstructive sleep apnea G47.33 Constipation K59.00 (1) Fall Encounter type: initial encounter Qualified Code(s): W19.XXXA - Unspecified fall, initial encounter (2) Fracture of superior pubic ramus Encounter type: initial encounter Fracture type: closed Laterality: unspecified laterality Qualified Code(s): S32.519A - Fracture of superior rim of unspecified pubis, initial encounter for closed fracture (3) Closed fracture of distal clavicle Encounter type: initial encounter Fracture alignment: nondisplaced Lat erality: left Qualified Code(s): S42.035A - Nondisplaced fracture of lateral end of left clavicle, initial encounter for closed fracture
[2024-05-16] MEDS: MELATONIN 3 MG TAB PO PRN ×2 (01:40→21:08)
[2024-05-16] MEDS: hydrALAZINE TAB 50 MG TAB PO SCH (09:20)
--- NOTE | 2024-05-16 13:33 | Hospitalist Progress Note ---
Date of Service May 16, 2024 Assessment & Plan (1) Fall: Plan: Patient sustained a witnessed ground-level fall on the afternoon of 05/06 after tripping on her chair; no LOC; no head strike; landed on her left side - Distal left clavicular fracture and superior/inferior pubic ramus fracture on arrival - Head/cervical spine CT without acute findings - 25OH Vitamin D WNL at 64.8 - Pain regimen: Scheduled tylenol, prn PO Dilaudid - encourage ice, IV pain medicine d/c - Ortho consulted: - Clavicle fracture: Range of motion as tolerated. Sling for comfort. Cool compresses. Okay to be out of sling to use platform walker. - Pubic ramus fracture: Weight-bear as tolerated. Platform walker. - 1 week xrays stable - PT/OT consulted - recommending rehab. Referral made to [facility] - awaiting placement. - Patient is medically stable and can be downgraded to MedSurg if needed for bed availability, however remains on PCU/telemetry given trauma alert on admission per protocol (2) Fracture of superior pubic ramus: Plan: A/P CT revealed acute left superior and inferior rami fractures; no active extravasation Pain management (as above) (3) Closed fracture of distal clavicle: Plan: Left shoulder x-ray on arrival suggestive of acute distal clavicular fracture without significant displacement Sling application/immobilization Pain management (as above) (4) Obstructive sleep apnea: Plan: CPAP at bedtime (5) Constipation: Plan: - Miralax daily PRN - Dulcolax added PRN (6) HTN (hypertension): Plan: 05/16 hydralazine uptitrated to 100 mg 3 times daily Plan Continue inpatient hospitalization while awaiting rehab placement Patient is medically stable and can be downgraded to MedSurg if needed for bed availability, however remains on PCU/telemetry given trauma alert on admission per protocol VTE PPx: Lovenox updated at bedside 05/13, 05/14 Admission and Anticipated Discharge Date Admission Date: May 06, 2024 Supervising Physician Co-Signing Physician Notes Attending Attestation - Chart reviewed, care plan d/w ANKIT Mejia. I agree w/ the angel components of her documentation. Jens Alejandre MD Subjective patient seen lying in bed, reports being tired after having 2 sessions of therapy today. Pain is a 5 out of 10 but controlled Good appetite No acute changes Telemetry - paced 70s Review of Systems Review of Systems: All systems reviewed & are unremarkable except as noted in Subjective Physical Exam Physical Exam: General: NAD, VS as above Resp: normal respiratory effort, lungs clear to auscultation, on room air CV: RRR, no murmur, Extremities: Moves all extremities, left sling in place, able to move fingers distally Neuro: A&O x3, Skin: intact, no lesions noted Results & Data Results & Data Vital Signs (Past 12 Hours) Vital Signs Temp Pulse Pulse Resp BP Pulse Ox O2 Del Method 05/16/24 11:48 97.2 F L 80 18 168/79 H 95 Room Air 05/16/24 09:30 Room Air 05/16/24 08:04 97.5 F L 69 18 175/79 H 92 Room Air 05/16/24 07:31 74 05/16/24 02:43 71 18 173/69 H 94 Room Air, CPAP PG Care Time/CCT Total # of Minutes Spent Total Time Spent with Patient: Total time spent is greater than 50% in coordination of care (as documented) at patient's floor/unit and/or counseling patient: Coding Level of Care Code 31405 SUB INP/OBS CARE 08/30MIN Diagnoses Fall, initial encounter W19.XXXA Encounter type: initial encounter Closed fracture of superior ramus of pubis, unspecified laterality, initial encounter S32.519A Encounter type: initial encounter Fracture type: closed Laterality: unspecified laterality Closed nondisplaced fracture of acromial end of left clavicle, initial encounter S42.035A Encounter type: initial encounter Fracture alignment: nondisplaced Laterality: left Obstructive sleep apnea G47.33 Constipation K59.00 HTN (hypertension) I10 (1) Fall Encounter type: initial encounter Qualified Code(s): W19.XXXA - Unspecified fall, initial encounter (2) Fracture of superior pubic ramus Encounter type: initial encounter Fracture type: closed Laterality: unspecified laterality Qualified Code(s): S32.519A - Fracture of superior rim of unspecified pubis, initial encounter for closed fracture (3) Closed fracture of distal clavicle Encounter type: initial encounter Fracture alignment: nondisplaced Laterality: left Qualified Code(s): S42.035A - Nondisplaced fracture of lateral end of left clavicle, initial encounter for closed fracture
--- NOTE | 2024-05-17 11:19 | Hospitalist Progress Note ---
Date of Service May 17, 2024 Assessment & Plan (1) Fall: Plan: Patient sustained a witnessed ground-level fall on the afternoon of 05/06 after tripping on her chair; no LOC; no head strike; landed on her left side - Distal left clavicular fracture and superior/inferior pubic ramus fracture on arrival - Head/cervical spine CT without acute findings - 25OH Vitamin D WNL at 64.8 - Pain regimen: Scheduled tylenol, prn PO Dilaudid - encourage ice, IV pain medicine d/c - Ortho consulted: - Clavicle fracture: Range of motion as tolerated. Sling for comfort. Cool compresses. Okay to be out of sling to use platform walker. - Pubic ramus fracture: Weight-bear as tolerated. Platform walker. - 1 week xrays stable - PT/OT consulted - recommending rehab. Referral made to [facility] - awaiting placement. - Patient is medically stable and can be downgraded to MedSurg if needed for bed availability, however remains on PCU/telemetry given trauma alert on admission per protocol UA ordered 05/17 for symtpoms (2) Fracture of superior pubic ramus: Plan: A/P CT revealed acute left superior and inferior rami fractures; no active extravasation Pain management (as above) (3) Closed fracture of distal clavicle: Plan: Left shoulder x-ray on arrival suggestive of acute distal clavicular fracture without significant displacement Sling application/immobilization Pain management (as above) (4) Obstructive sleep apnea: Plan: CPAP at bedtime (5) Constipation: Plan: - Miralax daily PRN - Dulcolax added PRN (6) HTN (hypertension): Plan: 05/16 hydralazine uptitrated to 100 mg 3 times daily BP improved since Plan Continue inpatient hospitalization while awaiting rehab placement Patient is medically stable and can be downgraded to MedSurg if needed for bed availability, however remains on PCU/telemetry given trauma alert on admission per protocol VTE PPx: Lovenox updated at bedside 05/13, 05/14 Admission and Anticipated Discharge Date Admission Date: May 06, 2024 Supervising Physician Co-Signing Physician Notes Attending Attestation - Chart reviewed, care plan d/w ANKIT Mejia. I agree w/ the angel components of her documentation. Jens Alejandre MD Subjective PAtient seen sitting up to the chair. had some burning with urination this morning, states she did not do well with hydrating yesterday - powerade provided to encourage this Review of Systems Review of Systems: All systems reviewed & are unremarkable except as noted in Subjective Physical Exam Physical Exam: General: NAD, VS as above Resp: normal respiratory effort, lungs clear to auscultation, on room air CV: RRR, no murmur, ABD: no suprapubic tenderness, mild left sided tenderness near fracture site Extremities: Moves all extremities, left sling in place, able to move fingers distally Neuro: A&O x3, Skin: intact, no lesions noted Results & Data Results & Data Vital Signs (Past 12 Hours) Vital Signs Temp Pulse Pulse Resp BP BP Pulse Ox 05/17/24 07:57 98.1 F 66 16 179/67 H 95 05/17/24 07:10 66 05/17/24 03:32 97.3 F L 67 18 143/67 H 93 O2 Del Method 05/17/24 07:57 Room Air 05/17/24 07:10 05/17/24 03:32 CPAP PG Care Time/CCT Total # of Minutes Spent Total Time Spent with Patient: Total time spent is greater than 50% in coordination of care (as documented) at patient's floor/unit and/or counseling patient: Coding Level of Care Code 74736 SUB INP/OBS CARE 08/30MIN Diagnoses Fall, initial encounter W19.XXXA Encounter type: initial encounter Closed fracture of superior ramus of pubis, unspecified laterality, initial encounter S32.519A Encounter type: initial encounter Fracture type: closed Laterality: unspecified laterality Closed nondisplaced fracture of acromial end of left clavicle, initial encounter S42.035A Encounter type: initial encounter Fracture alignment: nondisplaced Laterality: left Obstructive sleep apnea G47.33 Constipation K59.00 HTN (hypertension) I10 (1) Fall Encounter type: initial encounter Qualified Code(s): W19.XXXA - Unspecified fall, initial encounter (2) Fracture of superior pubic ramus Encounter type: initial encounter Fracture type: closed Laterality: unspecified laterality Qualified Code(s): S32.519A - Fracture of superior rim of unspecified pubis, initial encounter for closed fracture (3) Closed fracture of distal clavicle Encounter type: initial encounter Fracture alignment: nondisplaced Laterality: left Qualified Code(s): S42.035A - Nondisplaced fracture of lateral end of left clavicle, initial encounter for closed fracture
[2024-05-17 12:02] LABS: Appearance Urine Clear (Clear); Bacteria Urine Automated None Seen (None Seen); Bilirubin Urine Negative (Negative); Blood Urine Negative (Negative); Cast Urine Automated 0-2 /lpf (0-2); Color Urine Yellow; Epithelial Cell Urine Auto 0-2 /hpf (0-2); Glucose Urine UA Negative (Negative); Ketones Urine Negative (Negative); Leukocyte Esterase Urine 2+ (Negative); Nitrite Urine Negative (Negative); Protein Urine Negative (Negative); RBC Urine Automated 0-2 /hpf (0-2); Specific Gravity Urine 1.006 (1.000-1.030); Urobilinogen Urine Negative (Negative); WBC Urine Automated 21-50 /hpf (0-5)
--- NOTE | 2024-05-18 09:30 | Hospitalist Progress Note ---
Date of Service May 18, 2024 Assessment & Plan (1) Fall: Plan: Patient sustained a witnessed ground-level fall on the afternoon of 05/06 after tripping on her chair; no LOC; no head strike; landed on her left side - Distal left clavicular fracture and superior/inferior pubic ramus fracture on arrival - Head/cervical spine CT without acute findings - 25OH Vitamin D WNL at 64.8 - Pain regimen: Scheduled tylenol, prn PO Dilaudid - encourage ice, IV pain medicine d/c - Ortho consulted: - Clavicle fracture: Range of motion as tolerated. Sling for comfort. Cool compresses. Okay to be out of sling to use platform walker. - Pubic ramus fracture: Weight-bear as tolerated. Platform walker. - 1 week xrays stable - PT/OT consulted - recommending rehab. Referral made to [facility] - awaiting placement. - Patient is medically stable and can be downgraded to MedSurg if needed for bed availability, however remains on PCU/telemetry given trauma alert on admission per protocol UA ordered 05/17 for symptoms - no UTI, symptoms resolved w/o abx. (2) Fracture of superior pubic ramus: Plan: A/P CT revealed acute left superior and inferior rami fractures; no active extravasation Pain management (as above) (3) Closed fracture of distal clavicle: Plan: Left shoulder x-ray on arrival suggestive of acute distal clavicular fracture without significant displacement Sling application/immobilization Pain management (as above) (4) Obstructive sleep apnea: Plan: CPAP at bedtime (5) Constipation: Plan: - Miralax daily PRN - Dulcolax added PRN (6) HTN (hypertension): Plan: 05/16 hydralazine uptitrated to 100 mg 3 times daily BP improved since Plan Continue inpatient hospitalization while awaiting rehab placement Patient is medically stable and can be downgraded to MedSurg if needed for bed availability, however remains on PCU/telemetry given trauma alert on admission per protocol VTE PPx: Lovenox updated at bedside 05/13, 05/14 Admission and Anticipated Discharge Date Admission Date: May 06, 2024 Supervising Physician Co-Signing Physician Notes Attending Attestation - Chart reviewed, care plan d/w ANKIT Mejia. I agree w/ the angel components of her documentation. Awaiting rehab post-d/c. Jens Alejandre MD Subjective Patient seen sititng up in the chair, reports worsening pain today and wanting to get back in bed. no futher urinary symptoms. rash on b/l thighs - does not itch Tele - paced 70s Review of Systems Review of Systems: All systems reviewed & are unremarkable except as noted in Subjective Physical Exam Physical Exam: General: NAD, VS as above, sitting up in the chair, appears more worn down today compared to prior Resp: normal respiratory effort, lungs clear to auscultation, on room air CV: RRR, no murmur, Extremities: Moves all extremities, left sling in place, able to move fingers distally Neuro: A&O x3, Skin: pink macules over bilateral thigh, L>R, does not itch. Consitent with contact dermatitis Results & Data Results & Data Vital Signs (Past 12 Hours) Vital Signs Temp Pulse Pulse Resp BP Pulse Ox O2 Del Method 05/18/24 07:54 97.7 F 82 20 168/65 H 93 Room Air 05/18/24 07:12 78 05/18/24 02:04 97.5 F L 78 16 163/75 H 93 Room Air 05/17/24 22:43 97.7 F 78 16 139/64 94 CPAP 05/17/24 21:47 84 Laboratory Results UA and UC reviewed PG Care Time/CCT Total # of Minutes Spent Total Time Spent with Patient: Total time spent is greater than 50% in coordination of care (as documented) at patient's floor/unit and/or counseling patient: Coding Level of Care Code 37277 SUB INP/OBS CARE 08/30MIN Diagnoses Fall, initial encounter W19.XXXA Encounter type: initial encounter Closed fracture of superior ramus of pubis, unspecified laterality, initial encounter S32.519A Encounter type: initial encounter Fracture type: closed Laterality: unspecified laterality Closed nondisplaced fracture of acromial end of left clavicle, initial encounter S42.035A Encounter type: initial encounter Fracture alignment: nondisplaced Laterality: left Obstructive sleep apnea G47.33 Constipation K59.00 HTN (hypertension) I10 (1) Fall Encounter type: initial encounter Qualified Code(s): W19.XXXA - Unspecified fall, initial encounter (2) Fracture of superior pubic ramus Encounter type: initial encounter Fracture type: closed Laterality: unspecified laterality Qualified Code(s): S32.519A - Fracture of superior rim of unspecified pubis, initial encounter for closed fracture (3) Closed fracture of distal clavicle Encounter type: initial encounter Fracture alignment: nondisplaced Laterality: left Qualified Code(s): S42.035A - Nondisplaced fracture of lateral end of left clavicle, initial encounter for closed fracture
--- NOTE | 2024-05-19 11:50 | Hospitalist Progress Note ---
Date of Service May 19, 2024 Assessment & Plan (1) Fall: Plan: Patient sustained a witnessed ground-level fall on the afternoon of 05/06 after tripping on her chair; no LOC; no head strike; landed on her left side - Distal left clavicular fracture and superior/inferior pubic ramus fracture on arrival - Head/cervical spine CT without acute findings - 25OH Vitamin D WNL at 64.8 - Pain regimen: Scheduled tylenol, prn PO Dilaudid - encourage ice, IV pain medicine d/c - Ortho consulted: - Clavicle fracture: Range of motion as tolerated. Sling for comfort. Cool compresses. Okay to be out of sling to use platform walker. - Pubic ramus fracture: Weight-bear as tolerated. Platform walker. - 1 week xrays stable - PT/OT consulted - recommending rehab. Referral made to [facility] - awaiting placement. - Patient is medically stable and can be downgraded to MedSurg if needed for bed availability, however remains on PCU/telemetry given trauma alert on admission per protocol UA ordered 05/17 for symptoms - no UTI, symptoms resolved w/o abx. CXR ordered 05/19 for SOB - negative Added compression stockings for b/l lower extremity edema (2) Fracture of superior pubic ramus: Plan: A/P CT revealed acute left superior and inferior rami fractures; no active extravasation Pain management (as above) (3) Closed fracture of distal clavicle: Plan: Left shoulder x-ray on arrival suggestive of acute distal clavicular fracture without significant displacement Sling application/immobilization Pain management (as above) (4) HTN (hypertension): Plan: 05/16 hydralazine uptitrated to 100 mg 3 times daily Plan Chronic conditions: constipation: miralax and dulcolax prn JG: CPAP at bedtime Continue inpatient hospitalization while awaiting rehab placement Patient is medically stable and can be downgraded to MedSurg if needed for bed availability, however remains on PCU/telemetry given trauma alert on admission per protocol VTE PPx: Lovenox updated at bedside 05/19 Admission and Anticipated Discharge Date Admission Date: May 06, 2024 Subjective Patient seen and examined this morning. Patient complaining of b/l lower extremity edema which is a new finding for her. Patient also complaining of shortness of breath. she states her SOB was happening prior to her hospitalization and she was completing an outpatient workup for this. states she is aware she has a small pericardial effusion as well. She also reports that the PO pain medication does not work as well as the IV pain medication. Discussed w/ patient that in order for her to report to rehab she should be on PO medication. Physical Exam 2 Constitutional: WD/WN, vitals as above Respiratory: normal respiratory effort, lungs clear to auscultation Cardiovascular: lower extremity edema b/l 1+ pitting Skin: no rashes, warm and dry Psychiatric: A+Ox3, euthymic affect Results & Data Results & Data Vital Signs (Past 12 Hours) Vital Signs Temp Pulse Pulse Resp BP Pulse Ox O2 Del Method 05/19/24 11:12 36.5 C 87 16 170/81 H 92 Room Air 05/19/24 07:51 05/19/24 07:40 36.9 C 81 18 170/73 H 93 Room Air 05/19/24 07:34 85 05/19/24 03:32 36.4 C L 88 16 150/70 H 92 CPAP O2 Del Method 05/19/24 11:12 05/19/24 07:51 Room Air 05/19/24 07:40 05/19/24 07:34 05/19/24 03:32 Laboratory Results 05/14/24 05:40 05/14/24 05:40 PG Care Time/CCT Total # of Minutes Spent Total Time Spent with Patient: Total time spent is greater than 50% in coordination of care (as documented) at patient's floor/unit and/or counseling patient: Coding Level of Care Code 05536 SUB INP/OBS CARE 2/35MIN Diagnoses Fall, initial encounter W19.XXXA Encounter type: initial encounter Closed fracture of superior ramus of pubis, unspecified laterality, initial encounter S32.519A Encounter type: initial encounter Fracture type: closed Laterality: unspecified laterality Closed nondisplaced fracture of acromial end of left clavicle, initial encounter S42.035A Encounter type: initial encounter Fracture alignment: nondisplaced Laterality: left HTN (hypertension) I10 (1) Fall Encounter type: initial encounter Qualified Code(s): W19.XXXA - Unspecified fall, initial encounter (2) Fracture of superior pubic ramus Encounter type: initial encounter Fracture type: closed Laterality: u nspecified laterality Qualified Code(s): S32.519A - Fracture of superior rim of unspecified pubis, initial encounter for closed fracture (3) Closed fracture of distal clavicle Encounter type: initial encounter Fracture alignment: nondisplaced L aterality: left Qualified Code(s): S42.035A - Nondisplaced fracture of lateral end of left clavicle, initial encounter for closed fracture
--- NOTE | 2024-05-19 12:30 | XRay Report ---
XR chest 2V PA/lateral CLINICAL HISTORY: shortness of breath TECHNIQUE: 2 views of the chest were obtained. Comparison: Comparison is made to chest radiograph 05/06/2024 FINDINGS: An implanted pacemaker is seen. Calcified aortic knob is seen. The lungs are clear. No evidence of pl eural effusion or pneumothorax. IMPRESSION: No acute abnormalities and in particular no radiographic evidence of pneumonia. ACT 112: Negative or not required by law. Electronically signed by: Gagandeep Fernandez M.D. 05/19/2024 12:29 PM
--- NOTE | 2024-05-20 09:51 | Orthopedic Progress Note ---
Date of Service May 20, 2024 Assessment & Plan (1) Clavicle fracture: Plan: Left distal clavicle fracture Recent x-rays show the alignment is acceptable. Suggest probable intraligamentous type I distal clavicle fracture. Will plan to continue to treat conservatively. Sling for comfort. She may do range of motion as tolerated of the left upper extremity joints. No heavy pushing pulling or lifting. Continues to the platform walker for ambulation. May use arm for light daily activities. Follow-up with Dr. Montelongo as scheduled as an outpatient. (2) Closed fracture of superior pubic ramus: Plan: Recent x-rays were reviewed by Dr. Montelongo. There is a minimally displaced fracture of the left anterior pubic ring. She also has, evident from her CT a small sacral fracture. Alignment is acceptable of all fractures. Will continue closed care conservative treatment. She may be out of bed as tolerated. May weight-bear as tolerated left lower extremity. Use walker to assist with ambulation at all times. May do full range of motion of her left hip, knee and ankle as tolerated. Ice and elevation as needed for pain and swelling. Okay from orthopedic standpoint for discharge when medically stable. Follow-up with Dr. Montelongo in approximately 3 weeks for reassessment as an outpatient. (3) Fracture of inferior pubic ramus: Admission and Anticipated Discharge Date Admission Date: May 06, 2024 Subjective This 74-year-old female seen today in follow-up for a left clavicle fracture and a left pubic rami fracture. Patient states that she has been with case management and understands that she will be transferred to a rehab facility either tomorrow or . She states that her pain has been effectively controlled. She states that the platform walker allows her to move around without significant difficulty. Currently she denies chest pain, shortness of breath, fever, chills, sweats, nausea, vomiting, diarrhea or difficulty voiding. Review of Systems Review of Systems: All systems reviewed & are unremarkable except as noted in Subjective Physical Exam Physical Exam: Left shoulder: Patient has visible edema and ecchymosis over the midshaft of the left clavicle with tenderness to palpation. She is very hesitant to attempt forward flexion of her left upper extremity. She is able to to straighten her elbow to about 6 degrees and is able to Passively flex to terminal flexion. She does have appropriate dexterity of her hand wrist and fingers. She is able to detect light sensation to touch over the pads of all digits. Her peripheral pulses are 2+. Left lower extremity: Patient is able to slightly perform active straight leg raise test. She has some referred pain to the groin area with logroll testing. I was able to passively flex her knee to 90 degrees and into the neutral position I was able to slightly passively internally and externally rotate her hip with only mild pain. She is able to actively dorsi and plantarflex her foot without issue. Results & Data Vital Signs (Past 12 Hours) Vital Signs Temp Pulse Pulse Resp BP Pulse Ox Pulse Ox 05/20/24 09:15 05/20/24 08:00 93 05/20/24 07:50 36.7 C 69 18 179/77 H 93 05/20/24 07:06 84 05/20/24 02:51 36.8 C 75 18 143/75 H 93 05/19/24 23:11 36.8 C 77 18 165/70 H 95 05/19/24 21:54 76 O2 Del Method O2 Del Method 05/20/24 09:15 Room Air 05/20/24 08:00 Room Air 05/20/24 07:50 Room Air 05/20/24 07:06 05/20/24 02:51 Room Air, CPAP 05/19/24 23:11 Room Air, CPAP 05/19/24 21:54
--- NOTE | 2024-05-20 13:22 | Hospitalist Progress Note ---
Date of Service May 20, 2024 Assessment & Plan (1) Fall: Plan: Patient sustained a witnessed ground-level fall on the afternoon of 05/06 after tripping on her chair; no LOC; no head strike; landed on her left side - Distal left clavicular fracture and superior/inferior pubic ramus fracture on arrival - Head/cervical spine CT without acute findings - 25OH Vitamin D WNL at 64.8 - Pain regimen: Scheduled Tylenol, prn PO Dilaudid - encourage ice, IV pain medicine d/c -ortho follow up 05/20, reviewed recommendations recent left clavicle x-ray shows alignment is acceptable - probable intraligamentous type 1 distal clavicle fx treat conservatively, sling for comfort. ROM as tolerated in LUE, no heavy pushing or lifting Conservative tx of superior pubic ramus fx weight bear as tolerated, use walker to assist w/ ambulation, full ROM as tolerated. Follow up with Dr. Montelongo in approx. 3 weeks outpatient for reassessment. - PT/OT consulted - recommending rehab. Referral made to [facility] - awaiting placement. - [facility] is medically stable [facility], however remains on PCU/telemetry given trauma alert on admission per protocol UA ordered 05/17 for symptoms - no UTI, symptoms resolved w/o abx. CXR ordered 05/19 for SOB - negative Added compression stockings for b/l lower extremity edema (2) Fracture of superior pubic ramus: Plan: A/P CT revealed acute left superior and inferior rami fractures; no active extravasation Pain management (as above) (3) Closed fracture of distal clavicle: Plan: Left shoulder x-ray on arrival suggestive of acute distal clavicular fracture without significant displacement Sling application/immobilization Pain management (as above) (4) HTN (hypertension): Plan: 05/16 hydralazine uptitrated to 100 mg 3 times daily Plan Chronic conditions: constipation: miralax and dulcolax prn JG: CPAP at bedtime Continue inpatient hospitalization while awaiting rehab placement, stable for discharge when bed is available. [facility] is medically [facility], however remains on PCU/telemetry given trauma alert on admission per protocol VTE PPx: Lovenox Admission and Anticipated Discharge Date Admission Date: May 06, 2024 Subjective Patient seen and examined this morning. patient reports that her pain is a 4- 5/10 after receiving her PO pain medication. Reports the carol hose has helped with her LE edema. She denied CP or SOB. She is looking forward to going to rehab when bed is available Physical Exam Constitutional: WD/WN, vitals as above Respiratory: breathing unlabored Cardiovascular: well perfused, improvement in LE edema Psychiatric: A+Ox3, euthymic affect Results & Data Results & Data Vital Signs (Past 12 Hours) Vital Signs Temp Pulse Pulse Resp BP Pulse Ox Pulse Ox 05/20/24 10:53 36.5 C 74 18 169/68 H 93 05/20/24 09:15 05/20/24 08:00 93 05/20/24 07:50 36.7 C 69 18 179/77 H 93 05/20/24 07:06 84 05/20/24 02:51 36.8 C 75 18 143/75 H 93 O2 Del Method O2 Del Method 05/20/24 10:53 Room Air 05/20/24 09:15 Room Air 05/20/24 08:00 Room Air 05/20/24 07:50 Room Air 05/20/24 07:06 05/20/24 02:51 Room Air, CPAP PG Care Time/CCT Total # of Minutes Spent Total Time Spent with Patient: Total time spent is greater than 50% in coordination of care (as documented) at patient's floor/unit and/or counseling patient: Coding Level of Care Code 09110 SUB INP/OBS CARE 2/35MIN Diagnoses Fall, initial encounter W19.XXXA Encounter type: initial encounter Closed fracture of superior ramus of pubis, unspecified laterality, initial encounter S32.519A Encounter type: initial encounter Fracture type: closed Laterality: unspecified laterality Closed nondisplaced fracture of acromial end of left clavicle, initial encounter S42.035A Encounter type: initial encounter Fracture alignment: nondisplaced Laterality: left HTN (hypertension) I10 (1) Fall Encounter type: initial encounter Qualified Code(s): W19.XXXA - Unspecified fall, initial encounter (2) Fracture of superior pubic ramus Encounter type: initial encounter Fracture type: closed Laterality: unspecified laterality Qualified Code(s): S32.519A - Fracture of superior rim of unspecified pubis, initial encounter for closed fracture (3) Closed fracture of distal clavicle Encounter type: initial encounter Fracture alignment: nondisplaced Laterality: left Qualified Code(s): S42.035A - Nondisplaced fracture of lateral end of left clavicle, initial encounter for closed fracture
[2024-05-21 03:39] VITALS: O2SAT 94
[2024-05-21 08:02] VITALS: BP 177/83; PULSE 68; RESP 16; TEMP 98.1
--- NOTE | 2024-05-21 09:16 | Discharge Summary ---
Discharge Summary Date of Service May 21, 2024 Principal Dx & Hospital Course #1 = Principal Diagnosis (1) Fall: Patient sustained a witnessed ground-level fall on the afternoon of 05/06 after tripping on her chair; no LOC; no head strike; landed on her left side - Distal left clavicular fracture and superior/inferior pubic ramus fracture on arrival - Head/cervical spine CT without acute findings - 25OH Vitamin D WNL at 64.8 -UA 05/17 negative for UTI. -CXR 05/19 negative -Compression stockings added for b/l LE edema, recommend to continue upon discharge. - Pain regimen: Scheduled Tylenol, prn PO Dilaudid, prn Tramadol (home dose) - encourage ice, IV pain medicine d/c -ortho follow up 05/20, reviewed recommendations recent left clavicle x-ray shows alignment is acceptable - probable intraligamentous type 1 distal clavicle fx treat conservatively, sling for comfort. ROM as tolerated in LUE, no heavy pushing or lifting Conservative tx of superior pubic ramus fx weight bear as tolerated, use walker to assist w/ ambulation, full ROM as tolerated. Follow up with Dr. Montelongo in approx. 3 weeks outpatient for reassessment. (06/04/2024) -PT/OT recommended rehab, discharged to [facility] 05/21/20 (2) Fracture of superior pubic ramus: A/P CT revealed acute left superior and inferior rami fractures; no active extravasation Pain management (as above) (3) Closed fracture of distal clavicle: Left shoulder x-ray on arrival suggestive of acute distal clavicular fracture without significant displacement Sling application/immobilization Pain management (as above) (4) HTN (hypertension): 05/16 hydralazine uptitrated to 100 mg 3 times daily Monitor BP outpatient Plan Chronic conditions: constipation: miralax and dulcolax prn JG: CPAP at bedtime Admission HPI Per Admitting Provider Danielle is a 74-year-old female with PMH of JG, carcinoid syndrome, HTN, SIADH, COPD, FSH, CVA, atrial fibrillation, and osteoporosis. She presented via EMS on 05/06 for a fall. Patient stood up from her chair, tripped, and landed on her left shoulder/hip. No LOC. No head strike. Patient reports that she stood up when her physical therapist came in, and she tripped on her chair. This fall was witnessed by physical therapy. On arrival, patient endorses left hip and left shoulder pain; 8/10 at worst, 4/10 when lying still. She characterizes it as a "throbbing" pain; no radiation. Patient did not take pain medicine before coming into the ED. She took her regular morning medication and lodgment 10 medications. Only recent change in medication is that she was discontinued on escitalopram. She also is completing a course of vancomycin 125 mg p.o. daily for history of C. difficile. She denies any history of falls or injuries, and reports she has never fallen before. She does not ambulate with a walker or cane at baseline. She is not on supplemental oxygen at baseline; she does use a CPAP at night, but did not bring hers in. Patient endorses SOB at rest after receiving pain medicine in the ED, but notes this is starting to resolve after receiving supplemental oxygen. Patient also recently completed course of antibiotics for UTI; this course was completed 3 days ago. She is a former [employer] cigarette smoker but quit 10 years ago; she endorses occasional alcohol use; wine. Patient is hypertensive at 171/100 at time of admission; SpO2 93% on 2L NC. ED course: Benadryl 50 mg IV Solu-Medrol 40 mg IV Dilaudid 0.5 mg IV ROS: Patient endorses left shoulder pain, left hip pain, and SOB at rest (after receiving pain medicine in the ED). Patient denies fever, chills, night-sweats, dizziness/lightheadedness, PHILLIPS, chest pain, chest palpitations, pleuritic CP, cough, hemoptysis, abdominal pain, N/V/D, changes in urinary/bowel habits, saddle anesthesia, or numbness/tingling in the arms or legs. Discharge Exam Constitutional WD/WN, vitals as above Eyes PERRL, conjunctivae normal, anicteric sclerae Respiratory breathing unlabored Cardiovascular well perfused, compression stockings on b/l LE Skin no rashes, warm and dry Psychiatric A+Ox3, euthymic affect Discharge Plan Discharge Items Patient Disposition: Transfer Inpatient Rehab Fac Reason For Visit: FALL/TRAUMA Discharge Diagnosis: Left distal clavicle fracture Left superior and inferior pubic rami fracture Right sacral fracture Activity: Per Instructions section Weightbearing: Left weightbearing Weightbearing Comment: As tolerated, left shoulder and left leg Non-emergency contact: Specialist Call non-emergency contact if: your symptoms worsen, your pain is not controlled, your wound has increased redness, your wound has increased drainage and your wound pain has increased Follow-up/Referrals: Becky Tavarez MD [Primary Care Provider] - Segun Montelongo MD [Surgeon] - 06/04/24 12:00 pm Diet: Regular Addtl Attending Provider Instructions: Mrs. Pulliam, You were recently hospitalized following a fall and sustained a fracture to your left clavicle and pubic ramus bone. You were treated with supportive care including pain medicaiton and PT/OT. Please see recommendations below regarding your discharge. 1. Please continue taking Tylenol 1000mg every 8 hours to ease your pain. 2. Please use Dilaudid 3mg every 6 hours for severe pain (7-10 on pain scale). 3. Please use your previously prescribed Tramadol every 4 hours for moderate pain. (4-6 on pain scale) 4. Your hydralazine was increased to 100mg three times daily due to persistent high blood pressures. Please monitor this and write down recordings to go over with your PCP at your hospital follow up visit. 5. Please use Ducloax or Miralax to help with constipation as needed. 6. The remainder of your outpatient medications may be resumed as previously prescribed. 7. Please follow up with orthopedics on 06/04/2024 at 12:00pm 8. Please follow up with your PCP within 1-2 weeks of discharge. If you develop any severe pain, fever, chills, chest pain, or shortness of breath please report to the ER for further care. Sincerely, Mayra Becerril PA-C Addtl Community Education Coordinator Provider Instructions: Orthopedic Instructions: -Weight bear as tolerated Left lower extremity. -No hip precautions needed on left hip. Allowed for full range of motion all lower extremity joints. -Weight-bear as tolerated on left arm using a platform walker when out of bed. -Use walker at all times. -Sling left arm for comfort. -May do range of motion to left shoulder, elbow, wrist and forearm as tolerated. -Elevate left arm as needed for swelling. -Tylenol as needed for pain. -May be comfortable with head of bed elevated. -Call [phone] with any increased pain, swelling, questions or concerns or need to reschedule appointment. -Follow-up with [facility] orthopedics as scheduled on 06/04/24 at 12:00 p.m. Pending Studies at Discharge: No Stand-Alone Forms: My [facility] Skilled Items Patient informed of condition?: Yes DNR: No Discharge Level of Care: Acute rehab Communicable Disease: No Discharge Prognosis: Stable Lines: None Urinary Catheter: No Medications and DC Order Prescriptions: New acetaminophen [Tylenol Extra Strength] 500 mg Tablet 1,000 mg PO TID Qty: 60 0RF hydralazine 50 mg Tablet 100 mg PO TID Qty: 90 0RF bisacodyl [Gentle Laxative (bisacodyl)] 5 mg Tablet,Delayed Release (Dr/Ec) 5 mg PO DAILY PRN (Reason: constipation) Qty: 20 0RF polyethylene glycol 3350 [Miralax] 17 gram Powder In Packet 17 g PO DAILY PRN (Reason: constipation) Qty: 14 0RF hydromorphone 2 mg tablet 3 mg PO Q6H PRN (Reason: pain (scale score 7-10)) Qty: 20 0RF Continued esomeprazole magnesium 40 mg capsule,delayed release(DR/EC) 40 mg PO QPM Qty: 90 3RF Trelegy Ellipta 100-62.5-25 mcg blister with device 1 inh inhalation DAILY Qty: 3 3RF metoclopramide HCl 10 mg tablet 10 mg PO TID fluticasone propionate [Flonase Allergy Relief] 50 mcg/actuation spray,suspension 2 spray intranasal DAILY PRN (Reason: Allergy Symptoms) Rx Instructions: administer into each nostril Zyrtec 10 mg capsule 10 mg PO DAILY PRN (Reason: Allergy Symptoms) albuterol sulfate [Ventolin HFA] 90 mcg/actuation HFA aerosol inhaler 2 puff inhalation Q4H PRN (Reason: Shortness Of Breath) Qty: 3 3RF Prolia 60 mg/mL syringe 60 mg subcut Q6MO clopidogrel 75 mg tablet 75 mg PO QAM Rx Instructions: TAKE 1 TABLET EVERY MORNING multivitamin Tablet 1 tab PO QAM losartan 50 mg tablet 50 mg PO BID levetiracetam [Keppra] 500 mg Tablet 500 mg PO BID tramadol 50 mg Tablet 50 mg PO Q4H PRN (Reason: Pain) aspirin 81 mg Tablet,Chewable 81 mg PO DAILY folic acid 1 mg tablet 1 mg PO BID sodium chloride 1,000 mg Tablet,Soluble 1,000 mg PO BID Qty: 60 0RF Discontinued acetaminophen [Tylenol Extra Strength] 500 mg Tablet 500 mg PO Q6H PRN (Reason: Pain) hydralazine 50 mg tablet 50 mg PO TID vancomycin 125 mg capsule 125 mg PO DAILY Qty: 10 0RF Discharge Orders: Discharge Order (Routine); Ordered 05/21/24 Ordered By: Mayra Becerril Admission Data Admit Date/Time: 05/06/24 18:46 Attending Provider: Elmo Taylor Admit Provider: Segun Rdz Primary Care Provider: Becky Tavarez Other Providers: Segun Rdz; Segun Montelongo; Macario Urrutia [facility]; [facility] Hospital Stay Data Consultations 05/06/24 17:51 ED Decision to Admit Stat 05/06/24 18:00 Consult Orthopedic Surgery Routine Diagnostic Imagining Performed 05/06/24 14:59 CT abd pelvis IV con only Stat 05/06/24 15:20 CT cervical spine wo con Stat CT head/brain wo con Stat Pending Results Patient Have Any Pending Studies at Discharge: No Discharge Instructions Given to Patient (Per Discharging Provider) Mrs. Pulliam, You were recently hospitalized following a fall and sustained a fracture to your left clavicle and pubic ramus bone. You were treated with supportive care including pain medicaiton and PT/OT. Please see recommendations below regarding your discharge. 1. Please continue taking Tylenol 1000mg every 8 hours to ease your pain. 2. Please use Dilaudid 3mg every 6 hours for severe pain (7-10 on pain scale). 3. Please use your previously prescribed Tramadol every 4 hours for moderate pain. (4-6 on pain scale) 4. Your hydralazine was increased to 100mg three times daily due to persistent high blood pressures. Please monitor this and write down recordings to go over with your PCP at your hospital follow up visit. 5. Please use Ducloax or Miralax to help with constipation as needed. 6. The remainder of your outpatient medications may be resumed as previously p rescribed. 7. Please follow up with orthopedics on 06/04/2024 at 12:00pm 8. Please follow up with your PCP within 1-2 weeks of discharge. If you develop any severe pain, fever, chills, chest pain, or shortness of breath please report to the ER for further care. Sincerely, Mayra Becerril PA-C Total Time Total Time Spent Total Time Spent (In Minutes): 42 Total Time Includes: Examination of the Patient, Discharge Planning and Medication Reconciliation Coding Level of Care Code 54232 INP/OBS DISCH >30 MIN Diagnoses Fall, initial encounter W19.XXXA Encounter type: initial encounter Closed fracture of superior ramus of pubis, unspecified laterality, initial encounter S32.519A Encounter type: initial encounter Fracture type: closed Laterality: unspecified laterality Closed nondisplaced fracture of acromial end of left clavicle, initial encounter S42.035A Encounter type: initial encounter Fracture alignment: nondisplaced Laterality: left HTN (hypertension) I10
== END 2024-05-21 11:07 | DRG 543 ==
LOC: ED 14:33 → 2S 18:46 → SUATTDRO 18:46 → 2S 21:15 → 2W 05-07 17:50

== ENCOUNTER 2024-06-29 08:31 | Inpatient (IN) ==
--- NOTE | 2024-06-29 08:50 | Emergency Department Note ---
Impression & Plan Intraparenchymal hemorrhage of brain, Hypoxic ED Provider Note NAME: YOKO MATTA AGE: 74 SEX: F : 1950 ARRIVES VIA: Walk-In INFORMANT: Patient ED PROVIDER(S): Steve Culp DO CHIEF COMPLAINT: Right-sided numbness and weakness HPI: Patient is a 74-year-old female with an extensive history of a previous stroke in the beginning of the year following which she had a brain bleed. She was seen here this month and diagnosed with acute brain bleed and transferred to [place]. She notes symptoms started today around 730. She got up around 630. She has complete right-sided numbness and some right sided weakness in the arm and leg. She admits to a headache. No change or loss of vision. No chest pain or shortness of breath. No dysuria, urgency, or frequency. No other exacerbating or remitting factors. ADDITIONAL HISTORY OBTAINED: Per HPI Chronic Medical/Social Conditions Affecting Care: Per HPI PAST MEDICAL HISTORY:See Below PAST SURGICAL HISTORY:See Below FAMILY HISTORY:See Below SOCIAL HISTORY:See Below HOME MEDICATIONS:See Below ALLERGIES:See Below VITALS:See Below PHYSICAL EXAMINATION: GENERAL: Sitting up in bed, alert, well appearing, well nourished, no distress, non-toxic EYE EXAM: normal conjunctiva. PERRL and EOM's grossly intact. OROPHARYNX: no exudate, no erythema, lips, buccal mucosa, and tongue normal and mucous membranes are moist NECK: supple, no nuchal rigidity, no adenopathy, non-tender LUNGS: Clear to auscultation. Normal chest wall mechanics HEART: no murmurs, S1 normal and S2 normal ABDOMEN: abdomen soft, non-tender, normo-active bowel sounds, no masses, no rebound or guarding. BACK: Back is symmetrical on inspection and there is no deformity, no midline tenderness, no CVA tenderness. SKIN: no rashes and no bruising UPPER EXTREMITIES: upper extremities are grossly normal. LOWER EXTREMITIES: No pitting edema. NEURO EXAM: Normal sensorium, cranial nerves II-XII intact, normal speech, no weakness of arms, no weakness of legs. No drift. Finger to nose intact. Gross sensation intact. MEDICAL DECISION MAKING: Patient is a 74-year-old female brought in was called as a stroke alert. External records were reviewed and she was recently admitted and transferred to [facility] following a bleed/IPH on the 17 of this month. confirms this is present at bedside. Patient was taken emergently to CAT scan and revisualization of the bleed which shown. This does appear to be improved per radiologist. This was discussed with Dr. Sanford from [facility] neurology. He feels as though the patient can stay here without neurosurgical service as it is improving and getting EEG and MRI. Patient was updated in regards to these findings. Patient is clearly not a TNK candidate. Patient remained stable while in the ER and was admitted to hospital service. Patient did remain on 2 L nasal cannula throughout her stay as she was hypoxic. Consults/Care Managements Discussions: Per MDM Triage Nursing notes reviewed. Limited review of prior medical records performed Vital Signs: reviewed and remarkable for HTN Differential diagnosis: Differential Diagnosis includes but is not limited to ischemic Stroke, hemorrhagic stroke, bells palsy, mass, neoplasm, migraine headache, seizure, subarachnoid hemorrhage, TIA, and transient global amnesia. ER treatment provided: See below Diagnostics interpreted by me include EKG and cardiac monitoring as listed below: -Cardiac Monitoring: An order was placed for continuous cardiac monitoring. The monitor shows a rate of paced with 90 rhythm. -ECG: Atrial sensed ventricular paced rate of 92 Normal axis No PVCs -Laboratory studies:Interpreted by me as stated above in MDM and shown below. Imaging studies: Xrays: As interpreted by me:none CTs show: Per my pulmonary interpretation shows a left intraparenchymal hemorrhage Procedures:none Critical Care: I have personally spent 32 minutes of critical care time in the direct management of this patient. This includes bedside care, interpretation of diagnostic studies, and testing, discussion with consultants, patient, and family members, and other required patient management activities. This 32 minutes is in excess of all separately billable procedures. Past Med/Surg History Problem List (Updated 06/29/24 @ 14:41 by Steve Culp DO) Hypoxic (Acute) Hypoxia Type 2 diabetes mellitus Hypokalemia Weakness Intraparenchymal hemorrhage of brain (Acute) Hemorrhagic stroke (Acute) Constipation Clavicle fracture (Acute) Closed fracture of superior pubic ramus (Acute) Fracture of inferior pubic ramus (Acute) Fall Closed fracture of distal clavicle Fracture of superior pubic ramus Stroke-like symptoms (Acute) Osteoporosis Presence of Watchman left atrial appendage closure device Paroxysmal atrial fibrillation Effusion, pericardium (Acute) Atrial fibrillation with rapid ventricular response (Acute) CVA (cerebral vascular accident) GERD (gastroesophageal reflux disease) Hyperlipidemia Ischemic cerebrovascular accident (CVA) FSH (facioscapulohumeral muscular dystrophy) COPD (chronic obstructive pulmonary disease) SIADH (syndrome of inappropriate ADH production) HTN (hypertension) Prediabetes (Chronic) Dysphagia (Acute) Liver lesion, right lobe (Acute) LVH (left ventricular hypertrophy) Diastolic dysfunction Tremor Carcinoid syndrome Hypoglycemia Obstructive sleep apnea Medical History (Updated 06/29/24 @ 14:41 by Steve Culp DO) Subarachnoid hemorrhage Acute intracerebral hemorrhage Shoulder pain, right Former smoker IBS (irritable bowel syndrome) Vitamin D deficiency History of small bowel obstruction (~2013) History of colon polyps History of skin cancer Antibiotic-induced yeast infection PRONE TO YEAST INFECTIONS WITH ANTIBIOTIC USE Seasonal allergies Lung nodules MONITORS Adrenal adenoma Carcinoid tumor of colon History of claustrophobia MILD Nasal cavity polyp Mild obstructive sleep apnea CPAP Chronic rhinitis Langerhans cell histiocytosis ? Gastroparesis DENIES GERD (gastroesophageal reflux disease) Surgical History History of surgery REMOTE HX FOR REMOVAL OF SKIN CA History of Mohs micrographic surgery for skin cancer History of lung biopsy H/O hysterectomy with oophorectomy S/P thoracotomy DENIES , REPORTS HX LUNG BIOPSY Hx of exploratory laparotomy HX BOWEL OBSTRUCTION S/P appendectomy H/O: hysterectomy TOTAL Family History Father Myocardial infarction Hypertension Mother Congestive heart failure Hypertension Grandfather (Paternal) Myocardial infarction Grandfather (Maternal) Myocardial infarction Grandmother Colorectal cancer Other Atrial fibrillation Family history of diabetes mellitus Social History Smoking Status: Never smoker Tobacco Type: Cigarettes Age Started Using Tobacco: 16; Age Quit Using Tobacco: 63; packs per day: 0.75; Second Hand Exposure: No; Do You Dip or Chew Tobacco: No; Hx Alcohol Use: Yes Alcohol type: wine Hx Substance Use: No Preferred Language: Portuguese Communication Ability: Effective Director Community Organization Required: No Beliefs That Will Affect Care: None marital status: Current Living Situation: Spouse current occupational status: retired Feels Safe at Home: Yes Seatbelt Use: always Sunscreen Use: Yes Assistive Devices: CPAP Allergies Allergies Allergy/AdvReac Type Severity Reaction Status Date / Time Iodinated Contrast Media Allergy Intermediate Hives Verified 04/26/24 13:07 mold Allergy Intermediate SNEEZING/CO Verified 04/26/24 13:07 NGESTION moxifloxacin [From Avelox] Allergy Intermediate ITCHING/YEAST Verified 04/26/24 13:07 INFECTION Tetracyclines Allergy Intermediate ? ITCH ALL Verified 04/26/24 13:07 OVER, PT NOT SURE adhesive Allergy Mild ITCHY RASH Verified 04/26/24 13:07 Penicillins Allergy Rash Verified 04/26/24 13:07 Sulfa (Sulfonamide Allergy Swelling Verified 04/26/24 13:07 Antibiotics) of Lip/Tongue/Throat amlodipine AdvReac Intermediate FATIGUE/CON Verified 04/26/24 13:07 STIPATION cefuroxime AdvReac Intermediate CAUSED C. Verified 04/26/24 13:07 DIFF INFECTION Home Meds Home Medications Medication Instructions Recorded Confirmed cetirizine 10 mg capsule (Zyrtec) 10 mg PO DAILY PRN Allergy Symptoms 09/10/19 06/29/24 fluticasone propionate 50 2 spray intranasal DAILY PRN 04/13/22 06/29/24 mcg/actuation nasal Allergy Symptoms spray,suspension (Flonase Allergy Relief) clopidogrel 75 mg tablet 75 mg PO QAM 09/12/22 06/29/24 metoclopramide HCl 10 mg tablet 10 mg PO TID 10/04/22 06/29/24 denosumab 60 mg/mL subcutaneous 60 mg subcut UD 02/07/23 06/29/24 syringe (Prolia) aspirin 81 mg chewable tablet 81 mg PO DAILY 02/07/24 06/29/24 levetiracetam 500 mg tablet 500 mg PO BID 02/07/24 06/29/24 (Keppra) losartan 50 mg tablet 50 mg PO BID 02/07/24 06/29/24 multivitamin 1 tab PO UD 02/07/24 06/29/24 tramadol 50 mg tablet 50 mg PO UD PRN Pain 02/07/24 06/29/24 folic acid 1 mg tablet 1 mg PO BID 04/26/24 06/29/24 acetaminophen 500 mg tablet 1,000 mg PO UD 06/29/24 06/29/24 (Tylenol Extra Strength) bisacodyl 5 mg tablet,delayed 5 mg PO UD PRN constipation 06/29/24 06/29/24 release (Gentle Laxative (bisacodyl)) cholecalciferol (vitamin D3) 50 50 mcg PO DAILY 06/29/24 06/29/24 mcg (2,000 unit) capsule clindamycin HCl 150 mg capsule 150 mg PO UD PRN dental/other 06/29/24 06/29/24 procedures esomeprazole magnesium 40 mg 40 mg PO UD 06/29/24 06/29/24 capsule,delayed release hydromorphone 2 mg tablet 3 mg PO UD PRN pain (scale score 06/29/24 06/29/24 7-10) metformin 500 mg tablet 500 mg PO BID 06/29/24 06/29/24 polyethylene glycol 3350 17 gram 17 g PO UD PRN constipation 06/29/24 06/29/24 oral powder packet (Miralax) Previous Rx's Medication Instructions Recorded albuterol sulfate 90 mcg/actuation 2 puff inhalation Q4H PRN 10/25/22 aerosol inhaler (Ventolin HFA) Shortness Of Breath #3 Inhalers fluticasone fur. 100 mcg-umeclid 1 inh inhalation DAILY #3 Inhalers 12/25/23 62.5 mcg-vilant 25 mcg inhalat.powder (Trelegy Ellipta) hydralazine 50 mg tablet 100 mg (2 x 50 mg) PO TID #90 tabs 05/21/24 sodium chloride 1,000 mg soluble 1,000 mg PO BID #60 tabs 06/24/24 tablet Results & Data (ED) Vital Signs Vital Signs - 24 hr 06/29/24 08:36 06/29/24 08:50 06/29/24 09:01 Temperature 36.7 C Temperature Source Temporal Artery Scan Pulse Rate 88 Pulse Rate [Apical] 86 Respiratory Rate 20 18 Respiratory Effort / Characteristics Non-Labored Spontaneous Non-Labored Spontaneous Respiratory Depth Normal Normal Respiratory Pattern Regular Blood Pressure 172/89 H Blood Pressure [Right Arm] 151/72 H Blood Pressure Mean 116 Blood Pressure Mean [Right Arm] 98 Blood Pressure Position [Right Arm] Pulse Oximetry 93 87 L 94 Oxygen Delivery Method Room Air Room Air Nasal Cannula Oxygen Flow Rate 2 Sepsis Recent Fever Within 48 Hours No Sepsis New/Unexplained Change in Mental Status N/A Sepsis Action Taken by Nursing No Action Required 06/29/24 09:04 06/29/24 09:22 06/29/24 09:46 Temperature Temperature Source Pulse Rate 95 H Pulse Rate [Apical] 91 H 78 Respiratory Rate 18 22 Respiratory Effort / Characteristics Non-Labored Spontaneous Non-Labored Spontaneous Respiratory Depth Normal Normal Respiratory Pattern Regular Blood Pressure Blood Pressure [Right Arm] 154/98 H 164/90 H Blood Pressure Mean Blood Pressure Mean [Right Arm] 116 114 Blood Pressure Position [Right Arm] Semi-fowlers Pulse Oximetry 92 93 Oxygen Delivery Method Nasal Cannula Nasal Cannula Oxygen Flow Rate 2 2 Sepsis Recent Fever Within 48 Hours Sepsis New/Unexplained Change in Mental Status Sepsis Action Taken by Nursing Laboratory Data 06/29/24 08:51 06/29/24 08:51 Lab Results 06/29/24 06/29/24 Range/Units 08:51 09:05 WBC 9.26 (4.8-10.8) K/ul RBC 4.66 (4.20-5.40) M/uL Hgb 13.3 (12.0-16.0) g/dl POC Hgb 14.3 (12.0-16.0) g/dl Hct 40.9 (37.0-47.0) % POC Hct 42 (37-47) % MCV 87.8 (80.0-100.0) fL MCH 28.5 (25.0-34.0) pg MCHC 32.5 (32.0-36.0) g/dL RDW Std Deviation 48.4 H (36.4-46.3) fL RDW Coeff of Lion 15.1 H (11.5-14.5) % Plt Count 326 (130-400) K/uL MPV 9.4 (9.4-12.4) fL Immature Gran % (Auto) 0.4 % Neut % (Auto) 82.0 % Lymph % (Auto) 10.0 % [place] % (Auto) 6.4 % Eos % (Auto) 0.9 % Baso % (Auto) 0.3 % Neut # (Auto) 7.59 H (1.40-6.50) K/uL Lymph # (Auto) 0.93 L (1.20-3.40) K/uL [place] # (Auto) 0.59 (0.11-0.59) K/uL Eos # (Auto) 0.08 (0.00-0.50) K/uL Baso # (Auto) 0.03 (0.00-0.20) K/uL Immature Gran # (Auto) 0.04 (0.01-0.20) K/uL PT 11.5 (9.0-12.0) Seconds INR 1.1 (0.9-1.1) APTT 30 (21-31) Seconds PTT Ratio 1.1 POC Sodium 139 (135-144) mmol/L Sodium 140 (136-145) mmol/L POC Potassium 3.6 (3.3-5.0) mmol/L Potassium 4.0 (3.5-5.1) mmol/L POC Chloride 103 (101-112) mmol/L Chloride 106 (98-107) mmol/L Carbon Dioxide 25 (21-32) mmol/L POC Total CO2 23 L (24-31) mmol/L Anion Gap 9 (3-11) POC Anion Gap 18.0 (16-25) mmol/L POC BUN 15 (7-18) mg/dl BUN 15 (6-23) mg/dl Creatinine 0.64 (0.6-1.2) mg/dl POC Creatinine 0.7 (0.6-1.3) mg/dl Est Cr Clr Drug Dosing 72.3 ml/min eGFR 92.68 BUN/Creatinine Ratio 23.4 H (10-20) Glucose 95 (70-99(Fasting)) mg/dl POC Glucose 92 (70-99) mg/dl POC Glucose (other) 92 (70-99) mg/dl Calcium 10.0 (8.6-10.3) mg/dl POC Ioniz Calcium Leo 1.25 (1.12-1.32) mmol/l Magnesium 1.8 (1.7-2.4) mg/dl Total Bilirubin 0.4 (0.2-1.0) mg/dl AST 27 (13-39) U/L ALT 24 (7-52) U/L Alkaline Phosphatase 103 (34-104) U/L Troponin I High Sens 14.2 H (0-14) pg/ml Total Protein 7.7 (6.0-8.3) gm/dl Albumin 4.1 (3.4-5.0) gm/dl Globulin 3.6 (2.5-4.0) gm/dl Albumin/Globulin Ratio 1.1 (0.9-2) Administered Medications Magnesium Oxide (Magnesium Oxide 400 Mg Tab) 400 mg PO QAM DOREEN Stop: 07/29/24 11:14 Last Admin: 06/29/24 11:29 Dose: 400 mg Documented By: KINZA Metoclopramide HCl (Metoclopramide Hcl 10 Mg Tablet) 10 mg PO TID DOREEN Stop: 07/29/24 13:59 Last Admin: 06/29/24 14:22 Dose: 10 mg Documented By: KTS Discontinued Medications Hydralazine HCl (Hydralazine Tab 50 Mg Tab) 100 mg PO NOW STA Stop: 06/29/24 11:06 Last Admin: 06/29/24 11:54 Dose: 100 mg Documented By: KINZA Potassium Chloride (Potassium Chloride Crtab 20 Meq Tabcr) 40 meq PO NOW STA Stop: 06/29/24 11:08 Last Admin: 06/29/24 11:29 Dose: 40 meq Documented By: KINZA Imaging Data Radiologist's Impression: Chest X-Ray 06/29/24 08:39 XR chest 1V portable CLINICAL HISTORY: neuro deficit, acute stroke suspected COMPARISON STUDY: Chest CT February 07, 2024. Chest radiograph June 22, 2024. FINDINGS: Left subclavian pacer is unchanged in position. Left atrial appendage occluder device is in place. Cardiomegaly is unchanged. There is no evidence for pulmonary edema. There is no pneumothorax or pleural effusion. No consolidation is identified. IMPRESSION: No acute cardiopulmonary findings. No change in appearance of the chest. ACT 112: Negative or not required by law. Electronically signed by: Dean Vasquez M.D. 06/29/2024 9:[address] 06/29/24 08:39 CT OF THE HEAD WITHOUT CONTRAST CLINICAL HISTORY: neuro deficit, acute stroke suspected COMPARISON STUDY: MRI of the brain April 28, 2024. Head CT June 22, 2024. CT DOSE: 603.09 mGy.cm TECHNIQUE: Helical axial images of the head were obtained without IV contrast. Automated exposure control was utilized for the study. A dose lowering technique was utilized adhering to the principles of ALARA. FINDINGS: The left temporal lobe intraparenchymal hematoma has mildly decreased in size and attenuation since CT of June 22, 2024. This now measures 2.3 x 1.8 cm, previously 2.4 x 2.3 cm. Associated vasogenic edema is similar to prior exam. There is no significant mass effect. No new sites of hemorrhage are present. Ventricular system is normal. Basal cisterns are patent. White matter hypodensity suggests small vessel disease. An old left parieto-occipital infarct as well as old infarct within the right basal ganglia are again noted. There are no calvarial fractures. IMPRESSION: 1. Mild decrease in size and attenuation of the left temporal lobe intraparenchymal hematoma since CT of June 22, 2024. This represents expected evolution. Stable mild associated vasogenic edema. 2. Otherwise, unchanged appearance of the brain. ACT 112: Negative or not required by law. Electronically signed by: Dean Vasquez M.D. 06/29/2024 8:53 AM Discharge Plan Visit Data Chief Complaint: Stroke Alert Stated Complaint: RT FACIAL NUMBNESS, RECENT STOKE ED Provider: Steve Culp Discharge Problem: Intraparenchymal hemorrhage of brain, Hypoxic Patient Disposition: Admitted As Inpatient Discharge Instructions Interventions: ED Discharge Assessment Last Done: 06/29/24 12:20
--- NOTE | 2024-06-29 08:55 | CT Scan Report ---
CT OF THE HEAD WITHOUT CONTRAST CLINICAL HISTORY: neuro deficit, acute stroke suspected COMPARISON STUDY: MRI of the brain April 28, 2024. Head CT June 22, 2024. CT DOSE: 603.09 mGy.cm TECHNIQUE: Helical axial images of the head were obtained without IV contrast. Automated exposure con trol was utilized for the study. A dose lowering technique was utilized adhering to the principles o f ALARA. FINDINGS: The left temporal lobe intraparenchymal hematoma has mildly decreased in size and attenuati on since CT of June 22, 2024. This now measures 2.3 x 1.8 cm, previously 2.4 x 2.3 cm. Associated vasogenic edema is similar to prior exam. There is no significant mass effect. No new sites of hemor rhage are present. Ventricular system is normal. Basal cisterns are patent. White matter hypodensity suggests small vessel disease. An old left parieto-occipital infarct as well as old infarct within th e right basal ganglia are again noted. There are no calvarial fractures. IMPRESSION: 1. Mild decrease in size and attenuation of the left temporal lobe intraparenchymal hematoma since CT of June 22, 2024. This represents expected evolution. Stable mild associated vasogenic edema. 2. Otherwise, unchanged appearance of the brain. ACT 112: Negative or not required by law. Electronically signed by: Dean Vasquez M.D. 06/29/2024 8:53 AM
[2024-06-29 09:05] LABS: Basophils # (auto) 0.03 K/uL (0.00-0.20); Basophils % (auto) 0.3 %; Eosinophils # (auto) 0.08 K/uL (0.00-0.50); Eosinophils % (auto) 0.9 %; Hematocrit (blood only) 40.9 % (37.0-47.0); Hemoglobin 13.3 g/dl (12.0-16.0); Immature Granulocytes # (auto) 0.04 K/uL (0.01-0.20); Immature Granulocytes % (auto) 0.4 %; Lymphocytes # (auto) 0.93 K/uL (1.20-3.40); Mean Corpuscular Hemoglobin 28.5 pg (25.0-34.0); Mean Corpuscular Hgb Conc 32.5 g/dL (32.0-36.0); Mean Corpuscular Volume 87.8 fL (80.0-100.0); Mean Platelet Volume 9.4 fL (9.4-12.4); Monocytes # (auto) 0.59 K/uL (0.11-0.59); Monocytes % (auto) 6.4 %; Neutrophils # (auto) 7.59 K/uL (1.40-6.50); Platelet Count 326 K/uL (130-400); RDW Coefficient of Variation 15.1 % (11.5-14.5); RDW Standard Deviation 48.4 fL (36.4-46.3); Red Blood Count 4.66 M/uL (4.20-5.40); White Blood Count 9.26 K/ul (4.8-10.8)
--- NOTE | 2024-06-29 09:12 | XRay Report ---
XR chest 1V portable CLINICAL HISTORY: neuro deficit, acute stroke suspected COMPARISON STUDY: Chest CT February 07, 2024. Chest radiograph June 22, 2024. FINDINGS: Left subclavian pacer is unchanged in position. Left atrial appendage occluder device is in place. Cardiomegaly is unchanged. There is no evidence for pulmonary edema. There is no pneumothorax or pleural effusion. No consolidation is identified. IMPRESSION: No acute cardiopulmonary findings. No change in appearance of the chest. ACT 112: Negative or not required by law. Electronically signed by: Dean Vasquez M.D. 06/29/2024 9:10 AM
[2024-06-29 09:18] LABS: iSTAT Creatinine 0.7 mg/dl (0.6-1.3); iSTAT Hemoglobin 14.3 g/dl (12.0-16.0); iSTAT Ionized Calcium 1.25 mmol/l (1.12-1.32); iSTAT Potassium 3.6 mmol/L (3.3-5.0)
[2024-06-29 09:23] LABS: Albumin Globulin Ratio 1.1 (0.9-2); Albumin Level 4.1 gm/dl (3.4-5.0); BUN Creatinine Ratio 23.4 (10-20); Bilirubin,Total 0.4 mg/dl (0.2-1.0); Creatinine Clr Calc Pharmacy 72.3 ml/min; Globulin 3.6 gm/dl (2.5-4.0); Magnesium 1.8 mg/dl (1.7-2.4); Total Protein 7.7 gm/dl (6.0-8.3)
[2024-06-29 09:29] LABS: Troponin I High Sensitivity 14.2 pg/ml (0-14)
[2024-06-29 09:40] LABS: INR 1.1 (0.9-1.1); Partial Thromboplastin Ratio 1.1; Partial Thromboplastin Time 30 Seconds (21-31); Prothrombin Time 11.5 Seconds (9.0-12.0)
--- NOTE | 2024-06-29 09:46 | History & Physical Report ---
Date of Service June 29, 2024 Assessment & Plan (1) Stroke-like symptoms: Plan: Patient presents with right sided numbness, weakness right UE and LE history of left temporal lobe intraparenchymal hemorrhage 06/22/24 -> transfer to [facility], and right thalamic and left paramedian frontal lobe ischemic stroke s/p TNK 11/2023 - CT head no acute changes, mild decrease in size and attenuation of left temporal lobe intraparenchymal hemorrhage - Echo 04/2024 negative for [id number] shunt Medication changes after Hemorrhagic stroke: ASA hold until 06/29 -> did take this AM, hold Plavix until 07/06, Keppra 1000mg BID until 06/29 then switch to 500 mg BID -> did take 1000mg this am - hold daily baby ASA as per neurology recommendations for 7-10 days - Will give 500 p.m. dose of Keppra tonight and switch to 500 BID 06/30 - MRI, MRA head and neck ordered - patient with contrast allergy - MRI techs unable to complete MRI 06/29, will have [facility] representatives come 06/30 to complete - will need tight HTN control - SBP < 150; continue home medications, close monitoring for increase ICP and electrolyte imbalance - Telemetry monitoring & Q4H neuro checks - neurology consulted; recommended defer EEG, repeat head CT in 24 hrs - promote oral hydration, avoid hypovolemia - passed dysphagia screen - can advance diet to DM2 - speech to eval - lipid panel in April; will defer further testing - start atorvastatin 40mg daily on discharge - A1c 5.3 04/2024; defer further recheck at this time (2) Weakness: Plan: secondary to recent hip fracture and history of ischemic strokes Possibly acutely worsened with symptoms above - no concern for infectious etiology at this time; CXR negative, afebrile, asymptomatic - UA ordered - Was to have home health with [facility] set up after discharge from [facility] Sunday, have not yet evaluated her - continue home prn pain medications for left hip pain - PT/OT to eval given new/worsening right LE weakness (3) Hypoxia: Plan: Possibly secondary to above, etiology unclear does not use oxygen at baseline - CXR negative - Denies dyspnea, congestion, or chest pain - 88% on RA when presented to ED -> currently on 2L NC - wean O2 as tolerated (4) Hypokalemia: Plan: 3.6 on admission; goal of 4.0 - add 40 meq PO supplement - trend BMP Hypomagnesemia: 1.8 on admission, goal of 2.0 - will add daily mg supplement - trend mg (5) HTN (hypertension): Plan: will need tight BP control, SBP <150 - will give home dose of hydralazine now as BP 164/90 - continue home losartan and hydralazine - can consider additional BP control prn if needed (6) Type 2 diabetes mellitus: Plan: Controlled on metformin at home; held - Most recent A1C 5.3 - with stroke protocol, want to avoid hypoglycemia - loosen glycemic control to 140-180 - defer insulin at this time, can add loose SSI if needed - T2DM diet - BSG ACHS if eating, q6h if npo (7) Presence of Watchman left atrial appendage closure device: Plan: History of A-fib - EKG on admission showed atrial sensed ventricular paced rhythm - likely compatible with MRI machine as patient had MRI 04/2024 Plan Chronic stable diagnoses: Hx of SIADH - continue home sodium supplement, Na stable GERD - continue metoclopramide, hold home PPI as per neurology recommendations JG - continue CPAP HS VTE ppx: SCDs, defer pharmacologic management given recent hemorrhagic stroke Diet: DM2 diet Code status: Full code Dispo: PCU/tele Admission and Anticipated Discharge Date Admission Date: 06/29/24 History of Present Illness Chief Complaint: stroke alert Primary Care Provider: Becky Tavarez MD Patient is a 74-year-old female with PMH of hemorrhagic stroke 06/22/24, ischemic stroke s/p TNK 11/2023, JG on Cpap, 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 She presents today due to right-sided numbness, and weakness in her right arm and BL legs. She stated that she woke up around 730 this morning and had right sided facial and right UE numbness. She also felt weakness in her right arm and leg. She has chronic weakness in her left leg due to a recent hip fracture. She is also unsure if the right leg weakness is new or ongoing/chronic. She has residual expressive aphasia from her recent hemorrhagic stroke; she had no numbness or weakness with the hemorrhagic stroke. She also had blurry vision in her right eye this morning that is improving. Her headache from this morning is resolved. Patient denies fever, chills, headache, dizziness, lightheadedness, sore throat, cough, sputum production, dyspnea, dyspnea on exertion, chest pain, abdominal pain, nausea, vomiting, diarrhea, constipation, edema. Her denies seizure like activity. After her discharge from [facility] Sunday, she was to hold her aspirin until today, she did take it this morning. She also is holding her Plavix until 07/06. They noted that she take 1000 Mg of Keppra daily, with switch to 500 mg daily 06/29. Patient said they did not realize this change and she did take 1000 mg this AM. She was to be set up with [facility] home health after being discharged from [facility] on Sunday; They have not yet seen her at home. She uses a walker at baseline. She does not use daily oxygen at home, just CPAP overnight. She does have a DNR/DNI in her living well, but discussed with her and would wish to be full code at this time. Patient's updated at bedside. Allergies Allergy/AdvReac Type Severity Reaction Status Date / Time Iodinated Contrast Media Allergy Intermediate Hives Verified 04/26/24 13:07 mold Allergy Intermediate SNEEZING/CO Verified 04/26/24 13:07 NGESTION moxifloxacin [From Avelox] Allergy Intermediate ITCHING/YEAST Verified 04/26/24 13:07 INFECTION Tetracyclines Allergy Intermediate ? ITCH ALL Verified 04/26/24 13:07 OVER, PT NOT SURE adhesive Allergy Mild ITCHY RASH Verified 04/26/24 13:07 Penicillins Allergy Rash Verified 04/26/24 13:07 Sulfa (Sulfonamide Allergy Swelling Verified 04/26/24 13:07 Antibiotics) of Lip/Tongue/Throat amlodipine AdvReac Intermediate FATIGUE/CON Verified 04/26/24 13:07 STIPATION cefuroxime AdvReac Intermediate CAUSED C. Verified 04/26/24 13:07 DIFF INFECTION Home Medications Medication Instructions Recorded Confirmed Type cetirizine 10 mg capsule (Zyrtec) 10 mg PO DAILY PRN Allergy Symptoms 09/10/19 06/29/24 History fluticasone propionate 50 2 spray intranasal DAILY PRN 04/13/22 06/29/24 History mcg/actuation nasal Allergy Symptoms spray,suspension (Flonase Allergy Relief) clopidogrel 75 mg tablet 75 mg PO QAM 09/12/22 06/29/24 History metoclopramide HCl 10 mg tablet 10 mg PO TID 10/04/22 06/29/24 History albuterol sulfate 90 mcg/actuation 2 puff inhalation Q4H PRN 10/25/22 06/29/24 Rx aerosol inhaler (Ventolin HFA) Shortness Of Breath #3 Inhalers denosumab 60 mg/mL subcutaneous 60 mg subcut UD 02/07/23 06/29/24 History syringe (Prolia) fluticasone fur. 100 mcg-umeclid 1 inh inhalation DAILY #3 Inhalers 12/25/23 06/29/24 Rx 62.5 mcg-vilant 25 mcg inhalat.powder (Trelegy Ellipta) aspirin 81 mg chewable tablet 81 mg PO DAILY 02/07/24 06/29/24 History levetiracetam 500 mg tablet 500 mg PO BID 02/07/24 06/29/24 History (Keppra) losartan 50 mg tablet 50 mg PO BID 02/07/24 06/29/24 History multivitamin 1 tab PO UD 02/07/24 06/29/24 History tramadol 50 mg tablet 50 mg PO UD PRN Pain 02/07/24 06/29/24 History folic acid 1 mg tablet 1 mg PO BID 04/26/24 06/29/24 History hydralazine 50 mg tablet 100 mg (2 x 50 mg) PO TID #90 tabs 05/21/24 06/29/24 Rx sodium chloride 1,000 mg soluble 1,000 mg PO BID #60 tabs 06/24/24 06/29/24 Rx tablet acetaminophen 500 mg tablet 1,000 mg PO UD 06/29/24 06/29/24 History (Tylenol Extra Strength) bisacodyl 5 mg tablet,delayed 5 mg PO UD PRN constipation 06/29/24 06/29/24 History release (Gentle Laxative (bisacodyl)) cholecalciferol (vitamin D3) 50 50 mcg PO DAILY 06/29/24 06/29/24 History mcg (2,000 unit) capsule clindamycin HCl 150 mg capsule 150 mg PO UD PRN dental/other 06/29/24 06/29/24 History procedures esomeprazole magnesium 40 mg 40 mg PO UD 06/29/24 06/29/24 History capsule,delayed release hydromorphone 2 mg tablet 3 mg PO UD PRN pain (scale score 06/29/24 06/29/24 History 7-10) metformin 500 mg tablet 500 mg PO BID 06/29/24 06/29/24 History polyethylene glycol 3350 17 gram 17 g PO UD PRN constipation 06/29/24 06/29/24 History oral powder packet (Miralax) Past Med/Surg History Problem List (Updated 06/29/24 @ 14:41 by Steve Culp DO) Hypoxic (Acute) Hypoxia Type 2 diabetes mellitus Hypokalemia Weakness Intraparenchymal hemorrhage of brain (Acute) Hemorrhagic stroke (Acute) Constipation Clavicle fracture (Acute) Closed fracture of superior pubic ramus (Acute) Fracture of inferior pubic ramus (Acute) Fall Closed fracture of distal clavicle Fracture of superior pubic ramus Stroke-like symptoms (Acute) Osteoporosis Presence of Watchman left atrial appendage closure device Paroxysmal atrial fibrillation Effusion, pericardium (Acute) Atrial fibrillation with rapid ventricular response (Acute) CVA (cerebral vascular accident) GERD (gastroesophageal reflux disease) Hyperlipidemia Ischemic cerebrovascular accident (CVA) FSH (facioscapulohumeral muscular dystrophy) COPD (chronic obstructive pulmonary disease) SIADH (syndrome of inappropriate ADH production) HTN (hypertension) Prediabetes (Chronic) Dysphagia (Acute) Liver lesion, right lobe (Acute) LVH (left ventricular hypertrophy) Diastolic dysfunction Tremor Carcinoid syndrome Hypoglycemia Obstructive sleep apnea Medical History (Updated 06/29/24 @ 14:41 by Steve Culp DO) Subarachnoid hemorrhage Acute intracerebral hemorrhage Shoulder pain, right Former smoker IBS (irritable bowel syndrome) Vitamin D deficiency History of small bowel obstruction (~2013) History of colon polyps History of skin cancer Antibiotic-induced yeast infection PRONE TO YEAST INFECTIONS WITH ANTIBIOTIC USE Seasonal allergies Lung nodules MONITORS Adrenal adenoma Carcinoid tumor of colon History of claustrophobia MILD Nasal cavity polyp Mild obstructive sleep apnea CPAP Chronic rhinitis Langerhans cell histiocytosis ? Gastroparesis DENIES GERD (gastroesophageal reflux disease) Surgical History History of surgery REMOTE HX FOR REMOVAL OF SKIN CA History of Mohs micrographic surgery for skin cancer History of lung biopsy H/O hysterectomy with oophorectomy S/P thoracotomy DENIES , REPORTS HX LUNG BIOPSY Hx of exploratory laparotomy HX BOWEL OBSTRUCTION S/P appendectomy H/O: hysterectomy TOTAL Family History Father Myocardial infarction Hypertension Mother Congestive heart failure Hypertension Grandfather (Paternal) Myocardial infarction Grandfather (Maternal) Myocardial infarction Grandmother Colorectal cancer Other Atrial fibrillation Family history of diabetes mellitus Social History Smoking Status: Never smoker Tobacco Type: Cigarettes Age Started Using Tobacco: 16; Age Quit Using Tobacco: 63; packs per day: 0.75; Second Hand Exposure: No; Do You Dip or Chew Tobacco: No; Hx Alcohol Use: Yes Alcohol type: wine Hx Substance Use: No Preferred Language: Latvian Communication Ability: Effective Clinical Neuropsychologist Required: No Beliefs That Will Affect Care: None marital status: Current Living Situation: Spouse current occupational status: retired Feels Safe at Home: Yes Seatbelt Use: always Sunscreen Use: Yes Assistive Devices: CPAP Review of Systems Review of Systems: see HPI Physical Exam Physical Exam: The patient is awake, alert and oriented 3, well developed and well nourished, normocephalic and atraumatic, in no acute distress. Non-toxic appearing. HEENT- EOMI, mucous membranes moist. Hearing grossly intact. Heart-normal S1 and S2. No murmurs, rubs or gallops. Lungs-clear bilaterally, no respiratory distress, no accessory muscle use. Abdomen-normal bowel sounds and soft. No ascites noted. Non-tender. Extremities- no clubbing, cyanosis, or edema. Rheumatologic-decreased range of motion. 3/5 strength right UE, 4/5 left UE. 4/5 strength right LE, 3/5 strength left LE. Psychiatric-normal affect. Musculoskeletal: Extremities: + limited ROM of lower extremity Neurologic: PERRL, EOMI, accommodation nl, no face palsy, no dysarthria not confused Speech / Cognition: + expressive aphasia Motor/Sensory: + sensory deficit (numbness right face and right UE) Cranial Nerves: no nystagmus Coordination: normal [id number] test Results & Data Results & Data Vital Signs (Past 12 Hours) Vital Signs Temp Pulse Pulse Resp BP BP Pulse Ox 06/29/24 09:22 91 H 18 154/98 H 92 06/29/24 09:04 95 H 06/29/24 09:01 86 18 151/72 H 94 06/29/24 08:50 87 L 06/29/24 08:36 36.7 C 88 20 172/89 H 93 O2 Del Method O2 Flow Rate 06/29/24 09:22 Nasal Cannula 2 06/29/24 09:04 06/29/24 09:01 Nasal Cannula 2 06/29/24 08:50 Room Air 06/29/24 08:36 Room Air Code Status & VTE Plan Code Status full code VTE Prophylaxis Plan VTE Prophylaxis will be ordered: Yes Supervising Physician Co-Signing Physician Notes Attending Attestation & Admission Note: Pt seen/examined, chart reviewed, care plan d/w ANKIT Hernandez. I agree w/ the angel components of her admission documentation. 74yo female with left sided temporal hemorrhagic stroke 06/22/24 requiring admission to neuro ICU at [facility], ischemic stroke s/p TNK 11/2023, JG on Cpap, carcinoid syndrome due to carcinoid tumor, HTN, SIADH, COPD, atrial fibrillation s/p pacemaker and Watchman device, muscular dystrophy followed by [facility] Neuro, COPD followed by [facility] Pulmonary, and osteoporosis. Presented due to right-sided numbness, and weakness in her right arm and BL legs. Woke up this am with the right sided facial and right UE numbness. She also felt weakness in her right arm and leg. The left leg weakness is chronic. Pt reports that with her recent hemorrhagic stroke she mainly had aphasia/word- finding difficulties. She did not have numbness or motor weakness with such. After d/c on 06/24 from [facility] she felt well and was recovering nicely at home. During my assessment (she was in her room on 2nd floor) she c/o feeling cold. Stated that the numbness was better - now only affecting the right hand and steven-oral area on right face. She recalls having had a mares for 1-2 days at [facility]. She reports feeling short of breath but blames it on anxiety. PMH/PSH/allergies/meds/sochx/famhx - reviewed VSS, afebrile gen - laying in bed, seems dyspneic with mild "quiet" tachypnea present, no aphasia at present mouth - MMM neck - no JVD heart - RRR, s1 s2 lungs - CTA b/l abd - soft NT ND BS+ ext - no edema, pulses 2+ b/l neuro - no facial droop; strength 5/5 x 4 exts; sensation intact to light touch face & 4 extremities labs reviewed (nearly all wnl - troponin scantly elevated) CT head, cxr reviewed EKG with pacing A/P: 1. recent L-sided temporal hemorrhagic stroke - [place] [facility] [place] no intervention needed; CT head today with improving hemorrhage 2. new onset right-sided numbness & motor weakness 3. dyspnea 4. h/o a.fib 5. pacemaker status 6. COPD 7. muscular dystrophy 8. DM - resolved - a1c 5.3% in 04/2024 appreciate neuro consultation & recs MRI brain, MRA head/neck - tomorrow (earliest we can get imaging due to pacer status) if unable to obtain such will obtain CT head check COVID check u/a (r/o stroke mimics) BP control - consider adding beta kell to her losartan & hydralazine other plans per Ms Hernandez son updated at bedside during my visit Jens Alejandre MD PG Care Time/CCT Total # of Minutes Spent Total Time Spent with Patient: Total time spent is greater than 50% in coordination of care (as documented) at patient's floor/unit and/or counseling patient: Coding Level of Care Code 61501 INT INP/OBS CARE 3/75MIN Diagnoses Stroke-like symptoms R29.90 Weakness R53.1 Hypoxia R09.02 Hypokalemia E87.6 HTN (hypertension) I10 Type 2 diabetes mellitus E11.9 Presence of Watchman left atrial appendage closure device Z95.818
--- NOTE | 2024-06-29 11:23 | Neurology Consultation ---
Date of Consultation June 29, 2024 Assessment & Plan (1) Intraparenchymal hemorrhage of brain: History of Present Illness History of Present Illness pt currently feeling ok. no headache. only slight numbness around the rt side lips. strength feels unchanged from prior. pt recently broke left hip and left leg weakness from it. CT head stable left temporal ICH, some improvement. pt recently transferred to [place] for this same ICH (06/22/2024). no seizure like events. chart reviewed. 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 She presents today due to right-sided numbness, and weakness in her right arm and BL legs. She stated that she woke up around 730 this morning and had right sided facial and right UE numbness. She also felt weakness in her right arm and leg. She has chronic weakness in her left leg due to a recent hip fracture. She is also unsure if the right leg weakness is new or ongoing/chronic. She has residual expressive aphasia from her recent hemorrhagic stroke; she had no numbness or weakness with the hemorrhagic stroke. She also had blurry vision in her right eye this morning that is improving. Her headache from this morning is resolved. Patient denies fever, chills, headache, dizziness, lightheadedness, sore throat, cough, sputum production, dyspnea, dyspnea on exertion, chest pain, abdominal pain, nausea, vomiting, diarrhea, constipation, edema. After her discharge from her [facility] Sunday, She was to hold her aspirin until today, she did take it this morning. She also is holding her Plavix until 07/06. they noted that she will take 1000 Mg of Keppra daily, was switched to 500 mg daily 06/29. Patient said they did not realize this and she did take 1000 mg today. She was to be set up with [facility] home health after being discharged from [place] on Sunday. They have not yet seen her at home. She uses a walker at baseline. She does not use daily oxygen at home, just CPAP overnight. She does have a DNR/DNI in her living well, but discussed with her and would wish to be full code at this time. Patient's updated at bedside. Allergies Allergy/AdvReac Type Severity Reaction Status Date / Time Iodinated Contrast Media Allergy Intermediate Hives Verified 04/26/24 13:07 mold Allergy Intermediate SNEEZING/CO Verified 04/26/24 13:07 NGESTION moxifloxacin [From Avelox] Allergy Intermediate ITCHING/YEAST Verified 04/26/24 13:07 INFECTION Tetracyclines Allergy Intermediate ? ITCH ALL Verified 04/26/24 13:07 OVER, PT NOT SURE adhesive Allergy Mild ITCHY RASH Verified 04/26/24 13:07 Penicillins Allergy Rash Verified 04/26/24 13:07 Sulfa (Sulfonamide Allergy Swelling Verified 04/26/24 13:07 Antibiotics) of Lip/Tongue/Throat amlodipine AdvReac Intermediate FATIGUE/CON Verified 04/26/24 13:07 STIPATION cefuroxime AdvReac Intermediate CAUSED C. Verified 04/26/24 13:07 DIFF INFECTION Home Medications Medication Instructions Recorded Confirmed Type cetirizine 10 mg capsule (Zyrtec) 10 mg PO DAILY PRN Allergy Symptoms 09/10/19 06/29/24 History fluticasone propionate 50 2 spray intranasal DAILY PRN 04/13/22 06/29/24 History mcg/actuation nasal Allergy Symptoms spray,suspension (Flonase Allergy Relief) clopidogrel 75 mg tablet 75 mg PO QAM 09/12/22 06/29/24 History metoclopramide HCl 10 mg tablet 10 mg PO TID 10/04/22 06/29/24 History albuterol sulfate 90 mcg/actuation 2 puff inhalation Q4H PRN 10/25/22 06/29/24 Rx aerosol inhaler (Ventolin HFA) Shortness Of Breath #3 Inhalers denosumab 60 mg/mL subcutaneous 60 mg subcut UD 02/07/23 06/29/24 History syringe (Prolia) fluticasone fur. 100 mcg-umeclid 1 inh inhalation DAILY #3 Inhalers 12/25/23 06/29/24 Rx 62.5 mcg-vilant 25 mcg inhalat.powder (Trelegy Ellipta) aspirin 81 mg chewable tablet 81 mg PO DAILY 02/07/24 06/29/24 History levetiracetam 500 mg tablet 500 mg PO BID 02/07/24 06/29/24 History (Keppra) losartan 50 mg tablet 50 mg PO BID 02/07/24 06/29/24 History multivitamin 1 tab PO UD 02/07/24 06/29/24 History tramadol 50 mg tablet 50 mg PO UD PRN Pain 02/07/24 06/29/24 History folic acid 1 mg tablet 1 mg PO BID 04/26/24 06/29/24 History hydralazine 50 mg tablet 100 mg (2 x 50 mg) PO TID #90 tabs 05/21/24 06/29/24 Rx sodium chloride 1,000 mg soluble 1,000 mg PO BID #60 tabs 06/24/24 06/29/24 Rx tablet acetaminophen 500 mg tablet 1,000 mg PO UD 06/29/24 06/29/24 History (Tylenol Extra Strength) bisacodyl 5 mg tablet,delayed 5 mg PO UD PRN constipation 06/29/24 06/29/24 History release (Gentle Laxative (bisacodyl)) cholecalciferol (vitamin D3) 50 50 mcg PO DAILY 06/29/24 06/29/24 History mcg (2,000 unit) capsule clindamycin HCl 150 mg capsule 150 mg PO UD PRN dental/other 06/29/24 06/29/24 History procedures esomeprazole magnesium 40 mg 40 mg PO UD 06/29/24 06/29/24 History capsule,delayed release hydromorphone 2 mg tablet 3 mg PO UD PRN pain (scale score 06/29/24 06/29/24 History 7-10) metformin 500 mg tablet 500 mg PO BID 06/29/24 06/29/24 History polyethylene glycol 3350 17 gram 17 g PO UD PRN constipation 06/29/24 06/29/24 History oral powder packet (Miralax) Patient History Medical History (Updated 06/29/24 @ 11:21 by Jessica Hernandez PA-C) Subarachnoid hemorrhage Acute intracerebral hemorrhage Shoulder pain, right Former smoker IBS (irritable bowel syndrome) Vitamin D deficiency History of small bowel obstruction (~2013) History of colon polyps History of skin cancer Antibiotic-induced yeast infection PRONE TO YEAST INFECTIONS WITH ANTIBIOTIC USE Seasonal allergies Lung nodules MONITORS Adrenal adenoma Carcinoid tumor of colon History of claustrophobia MILD Nasal cavity polyp Mild obstructive sleep apnea CPAP Chronic rhinitis Langerhans cell histiocytosis ? Gastroparesis DENIES GERD (gastroesophageal reflux disease) Surgical History History of surgery REMOTE HX FOR REMOVAL OF SKIN CA History of Mohs micrographic surgery for skin cancer History of lung biopsy H/O hysterectomy with oophorectomy S/P thoracotomy DENIES , REPORTS HX LUNG BIOPSY Hx of exploratory laparotomy HX BOWEL OBSTRUCTION S/P appendectomy H/O: hysterectomy TOTAL Family History Father Myocardial infarction Hypertension Mother Congestive heart failure Hypertension Grandfather (Paternal) Myocardial infarction Grandfather (Maternal) Myocardial infarction Grandmother Colorectal cancer Other Atrial fibrillation Family history of diabetes mellitus Social History Smoking Status: Never smoker Tobacco Type: Cigarettes Age Started Using Tobacco: 16; Age Quit Using Tobacco: 63; packs per day: 0.75; Second Hand Exposure: No; Do You Dip or Chew Tobacco: No; Hx Alcohol Use: Yes Alcohol type: wine Hx Substance Use: No Preferred Language: Lebanese Communication Ability: Effective Keno Dealer Required: No Beliefs That Will Affect Care: None marital status: Current Living Situation: Spouse current occupational status: retired Feels Safe at Home: Yes Seatbelt Use: always Sunscreen Use: Yes Assistive Devices: CPAP Review of Systems Review of Systems: All systems reviewed & are unremarkable except as noted in HPI & below and All systems reviewed & are unremarkable except as noted in Subjective Constitutional: as per Subjective / HPI Eyes: as per Subjective / HPI Ear, Nose, Mouth, Throat: as per Subjective / HPI Respiratory: as per Subjective / HPI Cardiovascular: as per Subjective / HPI Gastrointestinal: as per Subjective / HPI Musculoskeletal: as per Subjective / HPI Integumentary: as per Subjective / HPI Neurologic: as per Subjective / HPI Psychiatric: as per Subjective / HPI Endocrine: as per Subjective / HPI Hematologic / Lymphatic: as per Subjective / HPI Allergy / Immunological: as per Subjective / HPI Exam (Neuro) Physical Exam: HEENT: normocephalic Neuro: Mental: AOx4, fluent speech, normal comprehension, slow to talk but normal naming and no aphasia. no apraxia, no L/R confusion, no neglect CN: PERRL, Full EOM, symmetric face, intact sensation t/o face, midline T/U/P, 5/5 SCM/traps. Motor: No abnormal movements, normal tone and bulk, 4+/5 t/o bilaterally upper limbs t/o (pt states unchanged from prior). RLE 4/5 proximal hip flexion, 4+/5 knee extension/flexion, 5-/5 dorsiflexion/extension. LLE: dorsiflexion and plantar flexion 5-/5, knee extension/flexion 4-/5 and hip flexion, limited left leg exam due to recent left hip fx. Sens: slight decrease light touch rt lips. Coord: intact grossly b/l arms. DTR: 1+ sym b/l Gait: deferred Impression: 74 yo female with recent left temporal ICH (06/22/2024 and released from [facility] on 06/24/2024) with rt face and arm paresthesia that is now essentially resolved and minimal symptoms. Pt with hx of atrial fib (s/p watchmen device) and was on DAPT prior to ICH. CT head stable and improving left temporal ICH. Pt clinically stable at this point. Recommendations: 1. Standard stroke work up as planned, p ending mri/mra continue keppra 500mg po bid No need for EEG at this point as it will not climate change analyst and not suggestive of seizure. 2. Hold all antiplatelet and anticoagula tions: For Patients who needs antiplatelet therapy, may consider restarting low dose ASA 81mg in about 7-10 days only if pt is stable and repeat imaging is reassuring. For patients who needs anticoagulation therapy, need to wait minimum 4 weeks prior to restarting therapy and only if patient is clinically stable and follow up imaging is reassuring. *If found to have subarachnoid hemorrhage, start Nimodipine 60mg PO/NG q4h x 21 days (give 1 hr before or 2 hrs after meals) 3. Images: serial non-con CT head every 24 hrs (get repeat CT tomorrow) or sooner if any acute decline in neurological status. TTE with bubble. 4. Strict BP control: for pt with SBP in 150-200, keep SBP goal range below 140. For pt with SBP above 210, keep SBP range 140-160. Avoid hypotension. *Close monitoring for increase ICP and electrolyte imbalance, especially hyponatremia. 6. Long-term SBP goal less than 130. 7. Plenty of hydration including IV flui d if possible (use isotonic solution) next 1-2 days. Avoid hypovolemia and hypotension. 8. Initiate DVT prevention therapy: pneu matic compression. Do not use Lovenox or anticoagulation meds until further notice. 9. Avoid hypoglycemia, serum glucose goa l during hospitalization: 140-180. 10. Long-term HgA1c goal less than 7. 11. Statin use: if pt was never on stati n, do not start statin now, wait until pt is being discharged and start statin on discharge day. Long-term LDL goal of less than 70. If pt was on statin as outpt, ok to continue statin during inpatient. *Avoid using gastric acid suppression meds (i.e. PPI, histamine-2 antagonists) as they are associated with increased risk of hospital-acquired pneumonia. 12. Head of bed up 30 degrees if possibl e. 13. telemetry monitoring with q4 neuro c heck. 15. Fall precaution and aspiration preca ution. Seizure precaution. Avoid agitation, may consider mild sedation as needed. 16. Consult physical and occupational th erapy and speech path evaluation. 17. consult neurosurgery and have them a duncan about the pt. Chart reviewed I have spent more than 50% educating patient about potential diagnosis and neurological evaluation and coordinating care with patient's treatment team. Total time spent (including chart review and coordination of care): 60 min (this includes chart review). Results & Data Vital Signs (Past 12 Hours) Vital Signs Temp Pulse Pulse Resp BP BP Pulse Ox 06/29/24 11:05 83 22 168/94 H 90 06/29/24 09:46 78 22 164/90 H 93 06/29/24 09:22 91 H 18 154/98 H 92 06/29/24 09:04 95 H 06/29/24 09:01 86 18 151/72 H 94 06/29/24 08:50 87 L 06/29/24 08:36 36.7 C 88 20 172/89 H 93 O2 Del Method O2 Flow Rate 06/29/24 11:05 Nasal Cannula 2 06/29/24 09:46 Nasal Cannula 2 06/29/24 09:22 Nasal Cannula 2 06/29/24 09:04 06/29/24 09:01 Nasal Cannula 2 06/29/24 08:50 Room Air 06/29/24 08:36 Room Air PG Care Time/CCT Total # of Minutes Spent Total Time Spent with Patient: Total time spent is greater than 50% in coordination of care (as documented) at patient's floor/unit and/or counseling patient: Coding Level of Care Code 84866 IN/OBS CONSULT LVL 4,60M Diagnoses Intraparenchymal hemorrhage of brain I61.9
[2024-06-29] MEDS: POTASSIUM CHLORIDE CRTAB 20 MEQ TABCR PO STA (11:29)
[2024-06-29] MEDS: MAGNESIUM OXIDE 400 MG TAB PO SCH (11:29)
[2024-06-29] MEDS: hydrALAZINE TAB 50 MG TAB PO STA (11:54)
[2024-06-29] MEDS ORDERED: DEXTROSE 50% 50 ML SYRINGE IV PRN (12:47)
[2024-06-29] MEDS ORDERED: traMADol HCL 50 MG TABLET PO PRN (12:47)
[2024-06-29] MEDS ORDERED: POLYETHYLENE (MIRALAX) 17 GM PACK PO PRN (12:47)
[2024-06-29] MEDS ORDERED: GLUCOSE 10 TAB/TUBE PO PRN (12:47)
[2024-06-29] MEDS ORDERED: CARBOHYDRATES FOR HYPOGLYCEMIA PO PRN (12:47)
[2024-06-29] MEDS ORDERED: GLUCAGON FOR INJ 1 MG VIAL SQ PRN (12:47)
[2024-06-29] MEDS ORDERED: DOCUSATE SODIUM 100 MG CAP PO PRN (12:47)
[2024-06-29] MEDS ORDERED: PHARMACIST DISCHARGE MED REC CONSULT PRN (12:47)
[2024-06-29] MEDS ORDERED: GLUCOSE 40% GEL 15 GM TUBE PO PRN (12:47)
[2024-06-29] MEDS: METOCLOPRAMIDE HCL 10 MG TABLET PO SCH (14:22)
--- NOTE | 2024-06-29 15:07 | Electrocardiogram Report ---
Test Reason : Blood Pressure : */* mmHG Vent. Rate : 92 BPM Atrial Rate : 92 BPM P-R Int : 174 ms QRS Dur : 120 ms QT Int : 398 ms P-R-T Axes : 66 69 -14 degrees QTcB Int : 492 ms Atrial-sensed ventricular-paced rhythm with sinus arrhythmia and occasionoal demand atrial pacing Abnormal ECG When compared with ECG of 22-Jun-2024 10:42, Vent. rate has decreased by 12 bpm Confirmed by Rubén Ojeda ([id number]) on 06/29/2024 3:07:29 PM Referred By: REFERRED SELF Confirmed By: Rubén Ojeda
[2024-06-29] MEDS: LOSARTAN POTASSIUM 50 MG TAB PO SCH (19:34)
[2024-06-29] MEDS: hydrALAZINE TAB 50 MG TAB PO SCH (19:34)
[2024-06-29] MEDS: FOLIC ACID 1 MG TAB PO SCH (20:01)
[2024-06-29] MEDS: SODIUM CHLORIDE 1 GM TABLET PO SCH (20:02)
[2024-06-29] MEDS: levETIRAcetam 500 MG TAB PO SCH (20:02)
[2024-06-29] MEDS: LABETALOL HCL IV 5 MG/ML 20ML IV ONE (23:09)
[2024-06-30 01:12] LABS: Appearance Urine Cloudy (Clear); Bacteria Urine Automated 4+ (None Seen); Bilirubin Urine Negative (Negative); Blood Urine Negative (Negative); Cast Urine Automated 0-2 /lpf (0-2); Color Urine Yellow; Epithelial Cell Urine Auto 0-2 /hpf (0-2); Glucose Urine UA Negative (Negative); Ketones Urine Negative (Negative); Leukocyte Esterase Urine 2+ (Negative); Nitrite Urine Negative (Negative); Protein Urine Negative (Negative); Specific Gravity Urine 1.017 (1.000-1.030); Urobilinogen Urine Negative (Negative); pH Urine 5.5 (4.5-7.5)
[2024-06-30] MEDS: LABETALOL HCL IV 5 MG/ML 20ML IV STA (02:50)
[2024-06-30] MEDS: LABETALOL HCL IV 5 MG/ML 20ML IV ONE (03:41)
[2024-06-30] MEDS: CEFEPIME 2000MG 2,000 MG/20 ML SYR IV SCH (06:14)
--- OUTSIDE RECORDS SUMMARY | 2024-06-30 07:44 | External Medical Summary | Continuity of Care Document ---
Author Name Unknown Organization [facility] Address [address] [place] [address] [id number] Care Team Providers Care Economic Development Director Name Role Phone Becky Tavarez Primary Care Physician [phone] Encounter [facility] ANYR [id number] Date(s): 06/22/24 - 06/24/[address] [phone] Encounter Diagnosis Acute right thalamic and left paramedian frontal lobe ischemic stroke status post TNK 4/, etiologylikely secondary to cardioembolic via atrial flutter not on anticoagulation(Discharge Diagnosis) - 06/22/24 JG on CPAP(Discharge Diagnosis) - 06/22/24 Dyslipidemia(Discharge Diagnosis) - 06/22/24 Hemianopia of right eye(Discharge Diagnosis) - 06/22/24 Hypertension(Discharge Diagnosis) - 06/22/24 Acute spont intraparenchymal hemorrhage assoc w/ hypertension(Discharge Diagnosis) - 06/22/24 Discharge Disposition: Home or Self Care Attending Physician: MD Tam Kevin M Admitting Physician: MD Tam Kevin M Referring Physician: MD Adam Rachel Zorionna Allergies, Adverse Reactions, Alerts Substance Criticality Severity Reaction Reaction Severity Status cefuroxime c. diff infection A ctive Avelox yeast infection Acti ve Adhesive bandage Contact dermatitis. Active Mold upper resp symptoms Active IVP dye Unable to assess criticality Mild hives Active amLODIPine fatigue/constip at ion Active Allergy Not found in Search 1 sneezing, nasal drainage unknown Active 1unknown enviornmental allergy Functional Status 06/24/24 Neurological Symptoms Confusion/Disorien tation, Weakness ADLs Unable to assess Facial Symmetry Symmetric Gait Steady Swallowing Difficulty Unable to assess Level of Consciousness Neuro Alert Hallucinations Present None History of Fall in Last 3 Months [place] Y es Presence of Secondary Diagnosis [place] Ye s Use of Ambulatory Aid [place] Crutches/can e/walker IV/Heparin Lock Fall Risk [place] Yes Gait/Transferring Fall Risk [place] Normal /bedrest/immobile Mental Status Fall Risk [place] Forgets li mitations Liam Fall Risk Score 90 [place] Fall Risk High risk Speech Pattern Aphasic, Delayed, Pressured Immunizations Given and Recorded Vaccine Date Status [...] vaccine, H1N1 11 06/25/09 Recorded 1Result Comment: [facility] 2Result Comment: 2021-11-28: Historical information-source unspecified [...] Medications albuterol 90 mcg/inh inhalation powder Start: 03/19/24 10:01:00 AM EDT, 2 puff, inhaled, q6h, Disp# 3 each, Refills: 0, Pharmacy: [facility] Start Date: 03/19/24 Status: Ordered aspirin 81 mg oral tablet, chewable Start: 01/31/24 10:24:00 AM EDT, 1 tab, PO, Daily, HOLD UNTIL 06/29/24 Start Date: 01/31/24 Status: Ordered clindamycin 150 mg oral capsule Start: 03/10/24 10:44:00 AM EDT, 4 cap, PO, As indicated, Disp# 12 cap, Refills: 3, one hour before dental and other procedures as directed, Pharmacy: [id number] Start Date: 03/10/24 Status: Ordered clopidogrel 75 mg oral tablet Start: 06/25/24 3:38:00 PM EST, 1 tab, PO, Daily, HOLD UNTIL 07/06/24 Start Date: 06/25/24 Status: Ordered fluticasone 50 mcg/inh nasal spray Start: 12/13/15 12:51:00 PM EDT, 1 spray, each nostril, bid, PRN: allergy symptoms Start Date: 12/13/15 Status: Ordered folic acid 1 mg oral tablet Start: 03/28/24 2:02:00 PM EDT, 2 tab, PO, Daily, Disp# 180 tab, Refills: 4, Pharmacy: [facility] Start Date: 03/28/24 Stop Date: 06/21/25 Status: Ordered HumaLOG Sliding Scale Moderate Dose Range: SSI, injection, subQ, 06/22/24 10:00:00 PM EST, 06/22/24 9:02:29 PM EST, Estimated correction need for patients using total insulin daily dose between 61 and 100 units., 06/22/24 14:52:00EST Start Date: 06/22/24 Stop Date: 06/22/24 Status: Completed HumaLOG Sliding Scale Moderate Dose Range: SSI, injection, subQ, 06/23/24 10:00:00 PM EST, 06/23/24 10:47:34 PM EST, Estimated correction need for patients using total insulin daily dose between 61 and 100 units., 06/22/24 14:52:00 EST Start Date: 06/23/24 Stop Date: 06/23/24 Status: Completed HumaLOG Sliding Scale Moderate Dose Range: SSI, injection, subQ, 06/24/24 11:30:00 AM EST, 06/24/24 12:43:46 PM EST, Estimated correction need for patients using total insulin daily dose between 61 and 100 units., 06/22/24 14:52:00 EST Start Date: 06/24/24 Stop Date: 06/24/24 Status: Completed hydrALAZINE 100 mg oral tablet Start: 12/17/23 10:12:00 AM EDT, 1 tab, PO, tid, Disp# 90 tab, Refills: 5, Pharmacy: [id number] Start Date: 12/17/23 Status: Ordered Keppra 500 mg oral tablet Start: 12/13/23 10:58:00 AM EDT, 1 tab, PO, bid, Disp# 180 tab, Refills: 1, Pharmacy: [facility] Start Date: 12/13/23 Stop Date: 06/10/24 Status: Ordered losartan 50 mg oral tablet Start: 12/11/23 10:23:00 AM EDT, 1 tab, PO, bid, Disp# 180 tab, Refills: 1, Pharmacy: [facility] Start Date: 12/11/23 Status: Ordered metFORMIN 500 mg oral tablet Start: 06/22/24 4:28:00 PM EST, 1 tab, PO, bid Start Date: 06/22/24 Status: Ordered metoclopramide 10 mg oral tablet Start: 08/13/23 1:20:00 PM EST, 1 tab, PO, tid, Disp# 360 tab, Refills: 2, Pharmacy: [facility] Start Date: 08/13/23 Status: Ordered Sodium Chloride 1 g oral tablet TAKE 1 TABLET BY MOUTH TWICE A DAY Start Date: 06/25/24 Status: Ordered Trelegy Ellipta 100 mcg-62.5 mcg-25 mcg/inh inhalation powder Start: 09/24/23 10:44:00 AM EST, 1 puff, inhaled, Daily Start Date: 09/24/23 Status: Ordered Vitamin A & D Start: 06/13/24 9:54:00 AM EST Start Date: 06/13/24 Status: Ordered Vitamin D3 50 mcg (2000 intl units) oral capsule Start: 06/22/24 4:30:00 PM EST, Daily Start Date: 06/22/24 Status: Ordered ZyrTEC 10 mg oral tablet Start: 04/12/23 1:38:00 PM EDT, 1 tab, PO, Daily, PRN: as needed for allergy symptoms Start Date: 04/12/23 Status: Ordered Mental Status 06/23/24 Primary Language German Problem List Condition Confirmation Course Effective Dates Status H ealth Status Informant Adult pulmonary Langerhans cell histiocytosis Confirmed Active Copy of advanced directive obtained Confirmed Active Atherosclerosis of aorta 1 Confirmed Active PAT (paroxysmal atrial tachycardia) Confirmed Active Bacterial lobar pneumonia Confirmed Active Callus Confirmed Active CVA (cerebral vascular accident) 2 Confirmed Active Radiculopathy, cervical Confirmed Active Chronic atrial fibrillation, unspecified Confirmed 04/17/24 Active Chronic constipation Confirmed Active COPD (chronic obstructive pulmonary disease) Confirmed Active COPD without exacerbation Confirmed Active Diabetes mellitus with diabetic neuropathy Confirmed Active Diabetes Confirmed Active Dupuytren's contracture Confirmed Active Dupuytren's disease Confirmed Active Dyspnea Confirmed Active BERMAN (dyspnea on exertion) Confirmed Active Chronic bronchitis with COPD (chronic obstructive pulmonary disease) Confirmed Active Epidermal cyst Confirmed Active FAMILY HISTORY OF OTHER SPECIFIED MALIGNANT NEOPLASM 3 Confirmed Active Right foot pain Confirmed Active Ganglion/synovial cyst - hand Confirmed Active Ganglion cyst Confirmed Active GERD (gastroesophageal reflux disease) Confirmed Active REJI (generalized anxiety disorder) Confirmed Active Encounter for follow-up examination after completed treatment for cancer Confirmed Active H/O hypercalcemia Confirmed Active History of squamous cell carcinoma of skin Confirmed Active HTN (hypertension) Confirmed Active IFG (impaired fasting glucose) Confirmed Active Intermittent urinary incontinence Confirmed Active 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, etiology likely secondary to cardioembolic via atrial flutter not on anticoagulation Confirmed Active Presence of Watchman left atrial appendage closure device Confirmed Active Melanocytic nevus of trunk Confirmed Active Twitch Confirmed Active Muscular dystrophy, unspecified 4 Confirmed 04/17/24 Active Neck pain Confirmed Active Neuroendocrine tumor Confirmed Active JG on CPAP Confirmed Active Tinea unguium Confirmed Active Osteoporosis Confirmed Active Peripheral vascular disease 5 Confirmed Active Plantar fasciitis, left Confirmed Active Postmenopausal Confirmed Active PAC (premature atrial contraction) Confirmed Active Reflux Confirmed Active Seborrheic keratosis Confirmed Active Sleep apnea Confirmed Active Apnea, sleep Confirmed Active Sun-damaged skin Confirmed Active Syndrome of inappropriate ADH (SIADH) secretion 6 Confirmed Active Weight monitoring Confirmed Active 06/18/2022- PET CT FINDINGS: PLEURA/PERICARDIUM/HEART: Atherosclerotic calcifications also present in the aortic arch and this branches. OTHER FINDINGS: Atherosclerosis of the abdominal aorta and its branches 3mother had ssc and brother had bcc. 4Added per Sinter Feeder Review-JW-04/22/[address] OTHER FINDINGS: Atherosclerosis of the abdominal aorta and its branches including peripheral vascular disease but without significant regions of ectasia. 6see outside note 03/14/22 Endocrinology page 6 Diagnosis Diagnosis Type Effective Dates Health Status Clinical Service Informant Acute spont intraparenchymal hemorrhage assoc w/ hypertension Discharge Diagnosis 06/22/24 Non-Specified Acute right thalamic and left paramedian frontal lobe ischemic stroke status post TNK 11/08, etiology likely secondary to cardioembolic via atrial flutter not on anticoagulation Discharge Diagnosis 06/22/24 Non-Specified Dyslipidemia Discharge Diagnosis 06/22/24 Non-Specified Hemianopia of right eye Discharge Diagnosis 06/22/24 Non-Specified JG on CPAP Discharge Diagnosis 06/22/24 Non-Specified Hypertension Discharge Diagnosis 06/22/24 Non-Specified Procedures Procedure Date Related Diagnosis Body Site Status Pacemaker catheter, device 02/[address] of abdomen and pelvis 1 01/22/24 Completed Chest X-ray 2 12/12/23 Completed Watchman 12/2023 Completed Mammogram 3 07/26/23 Completed Chest x-ray [...] as above. 2No acute chest disease. 3[facility] Impression: ACR BI-RADS CATEGORY 2: BENING 1. No evidence of malignancy 4[facility] Impression: 1. Cardiomegaly without acute process [...] surgery 16sinoplastey Results Laboratory List Name Date Glucose Meter (GLUCOSE METER) 06/24/24 Glucose Meter (GLUCOSE METER) 06/24/24 Complete Blood Count (CBC w Platelets) 1 08/24/23 Nephrology Panel 11/19/24 Glucose Meter (GLUCOSE METER) 06/23/24 Complete Blood Count (CBC w Platelets) 1 08/23/23 Hemoglobin A1C 06/23/24 Nephrology Panel 06/23/24 Partial Thromboplastin Time (PTT) Prothrombin Time w/ INR (INR) 06/23/24 Complete Blood Count w Differential (CBC w Platelets and Diff) 06/22/24 Nephrology Panel 06/22/24 Urine Analysis w/ Reflexed Microscopic. 06/22/24 MRSA Surveillance (Nasal Swab) 06/22/24 Most recent to oldest [Reference Range]: 1 2 3 eGFR CKD-EPI [>60 mL/min/1.73 m2] >90 mL/min/1.73 m2 (06/24/24 4:45 AM) >90 mL/min/1.73 m2 (06/23/24 3:14 AM) >90 mL/min/1.73 m2 (06/22/24 7:44 PM) Blood Glucose [70-120 mg/dL] 144 mg/dL 1 *HI* (06/24/24 12:43 PM) 111 mg/dL 2 (06/23/24 10:47 PM) 97 mg/dL 3 (06/22/24 9:02 PM) Estimated Average Glucose 103 mg/dL (06/23/24 3:14 AM) Estimated CrCl 70.96 mL/min (06/24/24 5:34 AM) 80.34 mL/min (06/23/24 4:05 AM) 74.70 mL/min (06/22/24 9:25 PM) MPV [9.0-12.2 fL] 9.1 fL (06/24/24 4:45 AM) 9.1 fL (06/23/24 3:14 AM) 9.5 fL (06/22/24 7:44 PM) Immature Gran% 0.4 % (06/22/24 7:44 PM) Neut% 64.6 % (06/22/24 7:44 PM) Lymph% 22.2 % (06/22/24 7:44 PM) [place]% 10.8 % (06/22/24 7:44 PM) Baso% 0.6 % (06/22/24 7:44 PM) Eos% 1.4 % (06/22/24 7:44 PM) Immat Gran, Abs [0-0.4 K/uL] 0.02 K/uL (06/22/24 7:44 PM) Neut, Abs [2.0-7.7 K/uL] 3.22 K/uL (06/22/24 7:44 PM) Lymph, Abs [1.0-3.4 K/uL] 1.11 K/uL (06/22/24 7:44 PM) [place], Abs [0-1.0 K/uL] 0.54 K/uL (06/22/24 7:44 PM) Baso, Abs [0-0.1 K/uL] 0.03 K/uL (06/22/24 7:44 PM) Eos, Abs [0-0.5 K/uL] 0.07 K/uL (06/22/24 7:44 PM) Type of Diff: AUTO (06/22/24 7:44 PM) RDW [11.5-14.2 %] 15.1 % *HI* (06/24/24 4:45 AM) 15.3 % *HI* (06/23/24 3:14 AM) 15.4 % *HI* (06/22/24 7:44 PM) MRSA Surveillance, on Admission [MSND] MRSA NOT detected (06/22/24 1:09 PM) Anion Gap [5-14 mmol/L] 13 mmol/L (06/24/24 4:45 AM) 14 mmol/L (06/23/24 3:14 AM) 16 mmol/L *HI* (06/22/24 7:44 PM) Alb [3.5-5.2 g/dL] 3.8 g/dL (06/24/24 4:45 AM) 3.6 g/dL (06/23/24 3:14 AM) 3.7 g/dL (06/22/24 7:44 PM) Bili (u) [NEG] NEGATIVE (06/22/24 2:07 PM) BUN [6-23 mg/dL] 10 mg/dL (06/24/24 4:45 AM) 11 mg/dL (06/23/24 3:14 AM) 11 mg/dL (06/22/24 7:44 PM) Ca [8.4-10.2 mg/dL] 9.2 mg/dL (06/24/24 4:45 AM) 9.1 mg/dL (06/23/24 3:14 AM) 9.2 mg/dL (06/22/24 7:44 PM) Cl- [98-107 mmol/L] 107 mmol/L (06/24/24 4:45 AM) 106 mmol/L (06/23/24 3:14 AM) 105 mmol/L (06/22/24 7:44 PM) HCO3 [22-29 mmol/L] 20 mmol/L *LOW* (06/24/24 4:45 AM) 20 mmol/L *LOW* (06/23/24 3:14 AM) 19 mmol/L *LOW* (06/22/24 7:44 PM) Cret [0.60-1.00 mg/dL] 0.60 mg/dL (06/24/24 4:45 AM) 0.53 mg/dL *LOW* (06/23/24 3:14 AM) 0.57 mg/dL *LOW* (06/22/24 7:44 PM) HbA1c [<5.7 %] 5.2 % 4 (06/23/24 3:14 AM) Glu [74-109 mg/dL] 103 mg/dL 5 (06/24/24 4:45 AM) 97 mg/dL 6 (06/23/24 3:14 AM) 93 mg/dL 7 (06/22/24 7:44 PM) Gluc Meter [74-109 mg/dL] 144 mg/dL *HI* (06/24/24 12:31 PM) 113 mg/dL *HI* (06/24/24 8:54 AM) 111 mg/dL *HI* (06/23/24 10:46 PM) Hct [35-44 %] 35.3 % (06/24/24 4:45 AM) 35.0 % (06/23/24 3:14 AM) 36.5 % (06/22/24 7:44 PM) Hgb [11.7-15.0 g/dL] 11.5 g/dL *LOW* (06/24/24 4:45 AM) 11.4 g/dL *LOW* (06/23/24 3:14 AM) 11.9 g/dL (06/22/24 7:44 PM) INR [0.9-1.1] 1.2 8 *HI* (06/23/24 3:14 AM) K [3.5-5.1 mmol/L] 3.7 mmol/L (06/24/24 4:45 AM) 3.7 mmol/L (06/23/24 3:14 AM) 3.6 mmol/L (06/22/24 7:44 PM) Ketones [NEG mg/dL] NEGATIVE mg/dL (06/22/24 2:07 PM) Leuk Est [NEG] NEGATIVE (06/22/24 2:07 PM) MCH [28-33 pg] 28.3 pg (06/24/24 4:45 AM) 28.2 pg (06/23/24 3:14 AM) 28.3 pg (06/22/24 7:44 PM) MCHC [32-36 g/dL] 32.6 g/dL (06/24/24 4:45 AM) 32.6 g/dL (06/23/24 3:14 AM) 32.6 g/dL (06/22/24 7:44 PM) MCV [81-96 fL] 86.7 fL (06/24/24 4:45 AM) 86.6 fL (06/23/24 3:14 AM) 86.9 fL (06/22/24 7:44 PM) Na [136-145 mmol/L] 140 mmol/L (06/24/24 4:45 AM) 140 mmol/L (06/23/24 3:14 AM) 140 mmol/L (06/22/24 7:44 PM) Nitrite (u) [NEG] NEGATIVE (06/22/24 2:07 PM) PO4 [2.5-4.5 mg/dL] 3.7 mg/dL (06/24/24 4:45 AM) 3.9 mg/dL (06/23/24 3:14 AM) 3.2 mg/dL (06/22/24 7:44 PM) Plts [150-350 K/uL] 361 K/uL *HI* (06/24/24 4:45 AM) 345 K/uL (06/23/24 3:14 AM) 388 K/uL *HI* (06/22/24 7:44 PM) PT [12.0-14.2 seconds] 14.6 seconds *HI* (06/23/24 3:14 AM) PTT [23-35 seconds] 36 seconds 9 *HI* (06/23/24 3:14 AM) RBC [3.90-5.00 M/uL] 4.07 M/uL (06/24/24 4:45 AM) 4.04 M/uL (06/23/24 3:14 AM) 4.20 M/uL (06/22/24 7:44 PM) Appear (u) CLEAR (06/22/24 2:07 PM) Color (u) STRAW (06/22/24 2:07 PM) Glu (u) [NEG mg/dL] NEGATIVE mg/dL (06/22/24 2:07 PM) Hgb (u) [NEG] NEGATIVE (06/22/24 2:07 PM) pH (u) [5.0-8.0 unit] 7.0 unit (06/22/24 2:07 PM) Prot (u) [NEG mg/dL] 30 mg/dL *Abnormal* (06/22/24 2:07 PM) Urobili [0.1-1.0 EU/dL] 0.1-1.0 EU/dL (06/22/24 2:07 PM) SG [1.005-1.030] 1.010 (06/22/24 2:07 PM) WBC [4.0-10.4 K/uL] 5.19 K/uL (06/24/24 4:45 AM) 4.20 K/uL (06/23/24 3:14 AM) 4.99 K/uL (06/22/24 7:44 PM) 1Result Comment: Performed at: [address] [place] [address] 2Result Comment: Performed at: [address] [place] [address] 3Result Comment: Performed at: [address] [place] [address] 4Result Comment: ADA Recommended [place] Reference Range: Normal: <5.7% Prediabetes: 5.7-6.4% Diabetes: >6.4% Hb A1c results in patients with severe anemia or recent RBC transfusion are unreliable and do not represent the patient glycemic control. 5Result Comment: ADA recommendation for FASTING Serum/Plasma Glucose: Normal: 70-100 mg/dL Prediabetes: 100-125 mg/dL Diabetes: 126 mg/dL or higher 6Result Comment: ADA recommendation for FASTING Serum/Plasma Glucose: Normal: 70-100 mg/dL Prediabetes: 100-125 mg/dL Diabetes: 126 mg/dL or higher 7Result Comment: ADA recommendation for FASTING Serum/Plasma Glucose: Normal: 70-100 mg/dL Prediabetes: 100-125 mg/dL Diabetes: 126 mg/dL or higher 8Result Comment: Suggested therapeutic range for low-intensity Coumadin therapy for venous thromboembolism is INR 2.0-3.0 (ex: atrial fibrillation, history of TIA/stroke). For high risk patients, the suggested therapeutic range is INR 2.5-3.5 (ex: mechanical prosthetic valves). 9Result Comment: Heparin therapeutic range for Anti XA Activity from 0.3 to 0.7 IU/mL is 65-105 seconds. Radiology Reports * Exam Date Time Procedure Performing Provider Status 06/22/24 9:10 PM XR Chest 1 View Keysha Key; Final Notes: (XR Chest 1 View) Reason For Exam: hypoxia w/ LLL deminished on exam XR Chest 1 View EXAMINATION: XR Chest 1 View CLINICAL HISTORY: hypoxia w/ LLL deminished on exam COMPARISON: 01/31/2024 FINDINGS: Pacemaker generator pack within the left chest wall with leads in the right atrium and right ventricle. There is mild cardiomegaly. Chronic interstitial lung markings and bilateral basal scarring. Nofocal opacity in the lung parenchyma. There is no pleural effusion or pneumothorax. Mild degenerative changes of the bilateral acromioclavicular joints. IMPRESSION: 1. Mild cardiomegaly. 2. Chronic interstitial lung markings and bilateral basal scarring. 3. No acute pulmonary infiltrates. Workstation ID: [id number] Final Dictated by:MD Hinton Joong Mo Dictated DT/TM:06/22/2024 9:57 Signed by:MD Hinton Joong Mo Signed (Electronic Signature):06/22/2024 9:56 p * Exam Date Time Procedure Performing Provider Status 06/22/24 6:[address] Brain/Head w/o Contrast Jonathon Horton; Final Notes: (CT Brain/Head w/o Contrast) Reason For Exam: eval 5cc L temp IPH CT Brain/Head w/o Contrast EXAMINATION: CT OF THE HEAD WITHOUT CONTRAST CLINICAL HISTORY: eval 5cc L temp IPH COMPARISON: Multiple priors, most recent CT head from 06/22/2024 TECHNIQUE: Routine tomographic images of the brain are obtained from the skull base to the vertex without the use of intravenous contrast, coronal and sagittal reconstructions. DOSE: Total Reported Dose Length Product (DLP) = 944.20 mGy.cm FINDINGS: Cerebral parenchyma: Left temporal lobe intraparenchymal hemorrhage measuring 2.1 x 2.8 x 1.9 cm (TV x AP x CC), not significantly changed compared to prior. Mild sulcal effacement along the left frontal, temporal, and parietal lobes. Encephalomalacia in the left parieto-occipital region. Normal cortical wang- white differentiation. No CT evidence of acute territorial infarction. Extra-axial spaces: No extra-axial fluid collection. Ventricles: Normal without effacement or hydrocephalus. Mass effect: No midline shift or cerebellar tonsillar herniation. Basal cisterns: Patent. Posterior fossa: No cerebellar tonsillar herniation. Calvarium: No acute osseous abnormality. Visualized paranasal sinuses/mastoid: Clear. Visualized orbits: Bilateral lens replacement. IMPRESSION: 1. Left temporal lobe intraparenchymal hemorrhage with mild surrounding edema, not significantly changed compared to prior (outside CT dated 06/22/2024). No midline shift. 2. Encephalomalacia in the left parieto-occipital region. [place] Act 112: This study does not meet the requirements of [place] Act 112. Dr. sUha Bhandari is the dictating resident. Finalized reports status indicates that the attending has reviewed the images and report, and agrees with the interpretation. Preliminary report status should be regarded as NOT interpreted by the attending radiologist. Workstation ID: [id number] Final Dictated by:MD Bhandari Tara Dictated DT/TM:06/22/2024 8:11 Resident:MD Bhandari Tara Signed by:MD Carlson Sangam G Signed (Electronic Signature):06/22/2024 8:10 p Vital Signs Most recent to oldest [Reference Range]: 1 2 3 Height 162.5 cm (06/22/24 1:00 PM) Patient Weight 65.7 kg (06/24/24 5:04 AM) 63.5 kg (06/22/24 1:00 PM) Body Mass Index 24.05 kg/m2 (06/22/24 1:00 PM) Temperature [36.5-37.9 DegC] 36.3 DegC *LOW* (06/24/24 12:00 PM) 36.0 DegC *LOW* (06/24/24 8:00 AM) 36.0 DegC *LOW* (06/24/24 4:00 AM) Heart Rate 74 bpm (06/24/24 12:00 PM) 67 bpm (06/24/24 8:00 AM) 91 bpm (06/24/24 7:28 AM) Respiratory Rate 24 br/min (06/24/24 12:00 PM) 16 br/min (06/24/24 8:00 AM) 17 br/min (06/24/24 7:28 AM) Blood Pressure 149/70mmHg (06/24/24 12:29 PM) 160/78mmHg (06/24/24 12:00 PM) 144/73mmHg (06/24/24 8:00 AM) Mean Blood Pressure 94 mmHg (06/24/24 12:29 PM) 96 mmHg (06/24/24 12:00 PM) 94 mmHg (06/24/24 8:00 AM) Cuff Pulse Pressure 79 mmHg (06/24/24 12:29 PM) 82 mmHg (06/24/24 12:00 PM) 71 mmHg (06/24/24 8:00 AM) BP Location # 1 Right Arm (06/24/24 12:29 PM) Right Arm (06/24/24 12:00 PM) Right Arm (06/24/24 8:00 AM) Social History Social History Type Response Tobacco Former smoker, Smoke less tobacco use: Former smokeless tobacco user, quit more than 1 year ago. Smoking Status Former Smoker, quit > 1 yr Sex Female Sex Representation Female (finding) Neurosurgery H&P * MD Fatoumtaa, Gustavo: BIANKA Tam MD, Mihai Almanza: MODIFY Event Display: Neurosurgery H&P Authored Date: [id number] NEUROSURGERY HISTORY AND PHYSICAL Name: DANIELLE MATTA Patient Number: [id number] : 1950 Date of Service: 06/22/2024 Surgical Hospital Day/Procedure: No procedures found Chief Complaint: Acute onset aphasia and confusion this morning found to have 5 cc left temporal IPH History of Present Illness: This is a 74-year-old female with history of acute left stroke in November2023 status post TNK complicated by parietal IPH. She also has a history of A-fib with RVR status post Watchman device in January on DAPT therapy but no thinners. She has a last known well of 6:30 AM this morning and at 8:30 AM was found to be confused with word finding difficulty. [facility] where a CT of the head at approx 11 AM showed a 5 cc left temporal intraparenchymal hemorrhage, no midline shift, residual left parietal encephalomalacia with the basal cisterns open. Notably she is in the process of rehabilitating from her stroke and a left clavicle and pelvic fracture 6 weeks ago. She uses a walker for left-sided weakness at baseline. She did get 1 unit of platelets before arriving at [facility]. She is currently on Cardene for pressure goal less than 140. Review Of Systems: Negative except as in HPI Past Medical History: Problems: GERD (gastroesophageal reflux disease) HTN (hypertension) Presence of Watchman left atrial appendage closure device Syndrome of inappropriate ADH (SIADH) secretion COPD without exacerbation Chronic bronchitis with COPD (chronic obstructive pulmonary disease) BERMAN (dyspnea on exertion) REJI (generalized anxiety disorder) IFG (impaired fasting glucose) Apnea, sleep Acute right thalamic and left paramedian frontal lobe ischemic stroke status post TNK 11/08, etiologylikely secondary to cardioembolic via atrial flutter not on anticoagulation Encounter for follow-up examination after completed treatment for cancer CVA (cerebral vascular accident) Bacterial lobar pneumonia Plantar fasciitis, left Diabetes Dyspnea Copy of advanced directive obtained Peripheral vascular disease Atherosclerosis of aorta Osteoporosis Diabetes mellitus with diabetic neuropathy Sleep apnea History of squamous cell carcinoma of skin PAC (premature atrial contraction) PAT (paroxysmal atrial tachycardia) H/O hypercalcemia Chronic constipation JG on CPAP COPD (chronic obstructive pulmonary disease) Callus Tinea unguium Epidermal cyst Neuroendocrine tumor Intermittent urinary incontinence Adult pulmonary Langerhans cell histiocytosis Sun-damaged skin Radiculopathy, cervical Neck pain Right foot pain Ganglion cyst Seborrheic keratosis FAMILY HISTORY OF OTHER SPECIFIED MALIGNANT NEOPLASM Twitch Reflux Ganglion/synovial cyst - hand Dupuytren's disease Dupuytren's contracture Melanocytic nevus of trunk Weight monitoring Muscular dystrophy, unspecified Chronic atrial fibrillation, unspecified Surgical History: Procedure History Procedure Procedure Date Comments Excision - left palm cyst Hysterectomy Miscellaneous - foot surgery Procedure - sinoplastey Dental implant system Biopsy of lung Pacemaker catheter, device 02/2024 CT of abdomen and pelvis 01/22/2024 - 1. Findings are consistent with a nonspecific pancolitis.2. The colon is normal in caliber. No intraperitoneal air seen.3. Cardiomegaly and advanced emphysema.4. Additional findings as above. Watchman 12/2023 Chest X-ray 12/12/2023 - No acute chest disease. [facility] BI[facility] CATEG[facility] 2: BENING1. No evidence of malignancy Chest [facility] Cardiomegaly without acute process Colonoscopy 09/18/2022 - [...] - Colonoscopy normal- Repeat in 10 years. Family History: Mother: Hypertension; Impaired fasting glucose Father: Heart attack; Hypertension Unknown: Skin cancer MGF: Heart attack PGF: Heart attack MGM: Cancer of colon Sister: Melanoma in situ.. Sister: Glaucoma Social History: Alcohol Details: Past, Wine, Daily, 1 drinks/episode average. 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. Exercise Risk Assessment: Does not exercise; Comment(s): No exercise due to muscle weakness and fatigue w/ muscular dystrophy Home/Environment Details: Lives with Spouse. Living situation: Home/Independent. Feels unsafe at home: No.; Comment(s): Home has smoke and CO detectors. Wears seatbelt in the car. Uses sun protection when outdoors. Nutrition/Health Details: Regular, Caffeine intake amount: Drinks 4 cups of coffee/day. Sexual Risk Assessment: No Sexual Activity Substance Abuse Risk Assessment: Denies Substance Abuse Tobacco Risk Assessment: Denies Tobacco Use; Details: Former smoker, Smokeless tobacco use: Former smokeless tobacco user, quit more than 1 year ago. Allergies and Sensitivities: cefuroxime(c. diff infection) IVP dye(hives) amLODIPine(fatigue/constipation) Mold(upper resp symptoms) Allergy Not found in Search(unknown) Allergy Not found in Search(sneezing, nasal drainage) Avelox(yeast infection) Adhesive bandage(Contact dermatitis.) Current Home Meds: (Last Updated 06/13 09:54) albuterol (albuterol 90 mcg/inh inhalation powder) 2 puff inhaled q6h aspirin (aspirin 81 mg oral tablet, chewable) 81 mg PO Daily cetirizine (ZyrTEC 10 mg oral tablet) 10 mg PO Daily PRN: as needed for allergy symptoms clindamycin (clindamycin 150 mg oral capsule) 600 mg PO As indicated one hour before dental and other procedures as directed clopidogrel (clopidogrel 75 mg oral tablet) 75 mg PO Daily fluticasone nasal (fluticasone 50 mcg/inh nasal spray) 1 spray each nostril bid PRN: allergy symptoms fluticasone/umeclidinium/vilanterol (Trelegy Ellipta 100 mcg-62.5 mcg-25 mcg/inh inhalation powder)1 puff inhaled Daily folic acid (folic acid 1 mg oral tablet) 2 mg PO Daily hydrALAZINE (hydrALAZINE 100 mg oral tablet) 100 mg PO tid levETIRAcetam (Keppra 500 mg oral tablet) 500 mg PO bid losartan (losartan 50 mg oral tablet) 50 mg PO bid metoclopramide (metoclopramide 10 mg oral tablet) 1 tab PO tid multivitamin 1 tab PO Daily multivitamin (Vitamin A & D) Vitals: Last Updated 06/22/24 13:45 Weights: Last Updated 06/22/24 13:00 Date Temp Pulse BP RR SpO2 FIO2 Date Wt(kg) Wt(lb) 06/22 13:45 156/84 06/22 13:00 63.5 140 06/22 13:00 36.4 85 140/68 17 96 4.0L/m 06/22 13:00 63.5 140 24 Hr Tmax: 36.4 at 06/22 13:00 Initial Wt: 06/22 63.5 kg 140 lb Physical Exam: EOspon Alert and oriented x2 (3 with options) PERRL, EOMI Right homonymous hemianopsia (BL from prior stroke) Mild expressive aphasia No facial, TM R5 LUE 4+ LLE 4- no drift Most Recent 24 Hour CBC/BMP Results No Latest CBC or BMP Found. No 24 Hour Lab Data. Studies: Pending or Completed in the Last 24 Hours No studies found ASSESSMENT: 74F w/ acute onset aphasia and confusion this morning found to have 5 cc left temporal IPH iso prior stroke with heme conv NEURO: #Intraparenchymal Hemorrhage, 5cc L temporal, no mls, basal cisterns open rCTH 6 hours from last pending - ASA/plavix r/s plan pend, holding for now - Q1NC - SBP < 140, liberalization plan pending - cardene/PRNs as needed - 1g keppra bid x7d - Goal normonatremia, Na levels q24 - EVD if hydrocephalus with goal ICPs<22 CV: - SBP goal per neuro plan - BP prn //Cardene gtt, hari if required PULM: - RA, NN GI: - NPO pend rCT - SUPERVISOR STATEMENT CLERKS - Bowel reg : - Void spont HEME: - Daily CBC -plt>100k - INR<1.5 ID: - UA pend ENDO: - NN - trend glucose PPX: SCDs, pLov plan pending Dispo:PT/OT, ICU for acute BP management ATTENDING ADDENDUM I saw and evaluated the above patient in conjunction with housestaff/advanced certified social workers in health care at approximately 1040 on 06/23. I agree with the above resident documentation. H&P plus films revd w HS on adm. rel small L temp ICH in pt w prev h/o isch stroke on ASA/Plavix this AM, alert, some word finding diff (expressive aphasia) FC briskly symm motor CTA - no vasc abn f/u CT stable ICH cont follow exam BP control therapy dx & plan d/w pt Mihai Tam MD, MSc, FAANS, FACS, KATHERINE Professor, Neurosurgery & Radiology Electronic Signature on File Electronically Reviewed/Signed by: Gustavo Ham MD Author Signature Dt/Tm:06/22/2024 02:26 PM Resident Department of Neurosurgery Electronically Reviewed/Signed by: Mihai Tam MD, MSc, FAANS, FACS, KATHERINE Cosigner Signature Dt/Tm: 06/23/2024 11:19 AM Chair, Department of Neurosurgery Professor, Departments of Neurosurgery, Radiology & Public Health Sciences [facility] [address], [address] [place] [id number] * ATTILA Reddy Katherine Diana: MODIFY, PERFORM, MODIFY Event Display: Neurosciences ICU H&P Authored Date: NEUROSCIENCES ICU HISTORY AND PHYSICAL Name: DANIELLE MATTA Patient Number: [id number] : 1950 Date of Service: 06/22/2024 Chief Complaint: L temporal IPH History of Present Illness: Danielle Matta is a 74 yo F with PMHx HTN, atrial fibrillation on DAPT (no AC) s/p Watchman, atrial paced, right thalamic and left frontal ischemic stroke s/p TNK November 2023 w/ subsequent left parietal IPH, posterior parietal subdural hemorrhage, and trace scattered subarachnoid hemorrhage w/ 3mm MLS, , COPD, GERD, SIADH, anxiety, DM, sleep apnea, neuroendocrine tumor, cervical radiculopathy,muscular dystrophy who was at baseline 06/22 0630 and then acutely developed aphasia and confusion at 0830. She presented to [facility] where CTH showed 5cc left temporal IPH. Patient was started onCardene for SBP < 140, given 1u PLTs and TXA for reversal of antiplatelets, and transferred to [facility]. Here she notes frontal headache and continued word finding difficulty. Patient denies any numbness,tingling, acute weakness, blurred or double vision. Of note, patient did have fall ~6wks ago at which time she broke her left clavicle and left superior and inferior pubic rami, both treated conservatively. She was ambulating with walker for baseline LLE weakness prior to this. Past Medical History: HTN HLD Atrial fibrillation GERD Constipation IBS Osteoporosis Fracture of superior+inferior pubic ramus SIADH COPD REJI DM R thalamic and left frontal ischemic stroke SAH IPH s/p TNK JG Adrenal adenoma Carcinoid tumor of colon Cervical radiculopathy Muscular dystrophy Hx SBO (2013) Surgical History: Thoracotomy and lung biopsy Pacemaker 02/15/24 Placement of Watchman left atrial appendage closure device 01/30/24 Radiofrequency ablation of AV junction 03/05/24 Colonoscopy 2020 Sinus surgery 2013 Skin biopsies Hysterectomy, oophorectomy Appendectomy Foot surgery L palm cyst removal Family History: Mother: HTN, impaired fasting glucose Father: [place], HTN MGF: [place] PGF: [place] MGM: colon cancer Sister: melanoma, glaucoma Social History: 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 She has 2 children, 2 grandchildren, and one great granddaughter. 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. Patient is a former smoker (47 pack years, quit 11 years ago), she drinks wine occasionally, denies drugs Allergies and Sensitivities: cefuroxime(c. diff infection) IVP dye(hives) amLODIPine(fatigue/constipation) Mold(upper resp symptoms) Allergy Not found in Search(unknown) Allergy Not found in Search(sneezing, nasal drainage) Avelox(yeast infection) Adhesive bandage(Contact dermatitis.) 24-Hour Vital Signs: T Range: Tmax: HR Range: RR Range: SBP Range: DBP Range: O2 Sat. Range: Most Recent Fi02: 36.4- 36.4 36.4 85- 85 17- 17 140-156 68- 84 96- 96 Neurophysiology: No ranges over the past 24 hours found. Hemodynamics: No ranges over the past 24 hours found. Monitor Rhythm: Atrial paced w/ underlying AF No Vent Detail Found. Weight: On admission: 06/22 63.500 kg Today: 63.5 kg on 06/22/2024 13:00 Input and Output - (6am Yesterday - 6am Today) No I/O Data Found: Total Balance x 3 days: 0 Total Balance x 7 days: 0 Most Recent Lab Results over the last 24 Hours: No Latest CBC or BMP Found. Active Inpt Meds: docusate (Colace) 100 mg PO bid levETIRAcetam (Keppra) 1,000 mg IV bid mupirocin topical (mupirocin 2% nasal ointment) 1 appl each nostril bid senna 8.6 mg PO Daily Active PRN Meds: acetaminophen (Tylenol) 650 mg PO q4h hydrALAZINE 10 mg IV Push q20min labetalol 10 mg IV Push q10min One Time Meds: None Active IV Meds: niCARdipine 40 mg + Sodium Chloride 0.9% 200 mL (niCARdipine for infusion 40 mg + sodium chloride (vasoactive drips) 200 mL) 200 mL titrate Physical Exam: General: Resting in bed, no acute distress. Generally anxious Head: Normocephalic, atraumatic Neck: Trachea midline Cardiac: AF. Normal S1/S2, no murmurs, rubs, or gallops. Palpable and equal peripheral pulses, no significant peripheral edema Lungs: On 4LNC, maintaining SpO2, no respiratory distress. Lungs CTAB. Tenderness over left clavicle Abdomen: +BS. Soft, non-tender, non-distended. Muscular pain over left chest wall, present for days Extremities: No gross deformities. Tenderness over left hip Neuro: Awake, alert, oriented x4. Mild expressive aphasia, slow to answer. No apparent receptive aphasia. CN intact. PERRL, EOMI. Follows commands x4. Strength 5/5 to BUE and RLE, 4/5 to LLE chronic d/t hip pain. Mild BUE dysmetria. No pronator drift Skin: Warm, dry, well perfused without rash Lines: PIVs Diagnostics: OSH CTH 06/22 1024 Acute left temporal intraparenchymal hemorrhage measures 2.4cm with m oderate surroudnign vasogenicedema. No midline shift. Chronic left parieto-occipital infarct OSH CXR 06/22 Cardiomegaly w/o acute process of the chest Assessment/Plan: Neuro: 5cc L temporal intraparenchymal hemorrhage - q1hNC - SBP < 140 - rCTH 6h after initial (06/22 @ 1700) - Holding DAPT, given TXA and 1u PLTs at [facility] - Restart plan pending NSGY - Prophylactic Keppra 1g BID x7d (takes home Keppra 500mg BID, since last stroke) - EVD if evidence of hydrocephalus, w/ goal ICP < 22 - Cont home folic acid 2mg daily - Goal normonatremia - PT/OT/SUPERVISOR STATEMENT CLERKS - NSGY primary Anxiety - Hold home Hydroxyzine PRN for anxiety CV: HTN, chronic; HLD; Atrial fibrillation s/p Watchman + ablation; Tachy-aren syndrome s/p pacemaker - Goal SBP < 140 - On Cardene, titrate as appropriate - PRNs available - L radial arterial line placed 06/22 - Cont home Losartan 50mg BID - Hold home Hydralazine 100mg TID, eval need - Hold DAPT ASA + Plavix, restart plan pending - Follows w/ [facility], last note 06/16/24 - Not candidate for Amio d/t COPD and muscular dystrophy; prolonged QTc on Tikosyn Pulm: COPD; JG on home CPAP - On 4LNC, wean as tolerated - No home O2 during day - Order CPAP qhs here - Cont home Trelegy Ellipta GI: GERD; IBS; Constipation - Per no longer taking Esomeprazole - Cont home Metoclopramide for IBS - NPO pending [facility] - MIVF @ 70mL/h while NPO - Bowel reg available : - I/Os - Voiding spontaneously - BUN/Cr from OSH 06/22 15/0.65 - Neph panel qAM Endo: DM - BG at OSH 108 - SSI moderate q6h - Hold home Metformin Hx carcinoid syndrome, SIADH - Monitor lytes closely - Cont home NaCl tabs 1g BID Heme: - H/H @ OSH 06/22 13.1/39.5, PLTs 367 - PT 11.5, PTT 31, INR 1.1 @ OSH 06/22 - Holding DAPT, given TXA and 1u PLTs at [facility] - CBC qAM, PT/INR 11/18 AM MSK: Osteoporosis - Hold home Prolia Fracture of L clavicle and L inferior and superior pubic ramus - Being managed conservatively, walking with walker outpatient - Work w/ PT/OT - Monitor ID: - Afebrile - No leukocytosis (WBC 8.49) - Obtain UA here - Monitor, culture, antibiotics as clinically appropriate Prophylaxis: VTE: SCDs. Chemoprophylaxis held d/t IPH GIB: Substitution of home PPI Disposition: NCCU for close neurological monitoring with risk of rapid neurological decline requiring emergent intervention, hemodynamic monitoring and augmentation, monitoring of airway. Patient has living will in system from 12/01/22. This states that if she is in a state of permanent unconsciousness or terminal condition, she does not want cardiac resuscitation, mechanical ventilation, tube feedings or artificial nutrition, blood, invasive surgery, dialysis, antibiotics. It statesthat she does not want to designate another person as surrogate decision maker, but then lists her Dm Matta as primary and Livan Teixeira as secondary surrogates. Patient asked here, she informs that she wants to be FULL CODE Critical Care Shared/Split Visit: I have spent48 minutes of discrete time providing critical care services at the bedside. This includes performing a bedside examination of the patient and reviewing the electronic medical record, including progress notes by consultants or other members of the interprofessional team. The timeEXCLUDEStime performing procedures. Timealsoincludesthe following: _X_ Review results of diagnostic testing and/or imaging _X_ Interprofessional collaboration to establish/discuss plan of care _X_ Collaboration with primary team and/or consultants to establish/discuss plan of care _X_ Establish/discuss plan of care with the patient and/or family member(s) _X_ Document care in the medical record Electronic Signature on File Electronically Reviewed/Signed by: Mariela Reddy PA-C Author Signature Dt/Tm:06/22/2024 04:34 PM Department of Neurosurgery Electronically Reviewed/Signed by: Costa Covarrubias III, MD Cosigner Signature Dt/Tm: 06/22/2024 05:19 PM Department of Anesthesia KDP .D/C Summary * ATTILA Velasquez, Dakota: PERFORM Event Display: .D/C Summary Authored Date: [id number] [facility] For medical concerns, call: . Address: [address] [place] [address], [place] [id number] (HOME) [phone] (MOBILE) :1950 . Date of Admission:06/22/2024 Date of Discharge:06/24/2024 Physician:MD Yonatan, Mihai Almanza Service:Neurosurgery Discharge Disposition: Primary Care Provider/Phone: MD DAYSI, BECKY Millan (BUSINESS) [phone] (FAX BUSINESS) Principal Diagnosis: Acute spont intraparenchymal hemorrhage assoc w/ hypertension Other Diagnoses: 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, etiologylikely secondary to cardioembolic via atrial flutter not on anticoagulation Dyslipidemia Hemianopia of right eye Hypertension JG on CPAP Major Tests and Procedures: 06/22/2024 - CT Brain/Head w/o Contrast IMPRESSION: 1. Left temporal lobe intraparenchymal hemorrhage with mild surrounding edema, not significantly changed compared to prior (outside CT dated 06/22/2024). No midline shift. 2. Encephalomalacia in the left parieto-occipital region. 06/22/2024 -XR Chest 1 View IMPRESSION: 1. Mild cardiomegaly. 2. Chronic interstitial lung markings and bilateral basal scarring. 3. No acute pulmonary infiltrates. Brief History of Present Illness: Danielle Matta is a 74 yo F with PMHx HTN, atrial fibrillation on DAPT (no AC) s/p Watchman, atrial paced, right thalamic and left frontal ischemic stroke s/p TNK November 2023 w/ subsequent left parietal IPH, posterior parietal subdural hemorrhage, and trace scattered subarachnoid hemorrhage w/ 3mm MLS, ground level fall 6wks ago w/ resultant L clavicle and L pubic ramus fracture conservatively managed, COPD, GERD, SIADH, anxiety, DM, sleep apnea on CPAP qhs, neuroendocrine tumor, cervical radiculopathy, muscular dystrophy who was at baseline 06/22 0630 and then acutely developed aphasia and confusion at 0830. She presented to [facility] where CTH showed 5cc left temporal IPH. Patient was started on Cardene for SBP < 140, given 1u PLTs and TXA for reversal of antiplatelets, and trans ferred to [facility]. Hospital Course: admitted to [facility]/17/24 for management ofhersmall left temporalintraparenchymalhemorrhage.She didnotrequiresurgicalintervention.On arrival she had left radial arterial line placed, she continued on Cardene. Herhome Losartanwas restarted 06/22, and her home Hydralazine was restarted 06/23. She was weaned off Cardene. RepeatCTHon 06/22 PM showed stability of IPH. Her neurologic exam remained stable with continued word finding difficulty. PT/OT evaluated the patient and identified ongoing inpatient [facility]. [facility] andwas deemed medicallystable to doso.Patient resumed regular diet. Discharged tomadison on06/24/2024.She was discharged in stable medical/neurological condition. Optimal future stroke prevention and risk factor modification was addressed/discussed. She and her family received a stroke information packet near the time of hospital discharge. Follow-up with neurosurgery in1 [address]with CT. Clinical conditions which further demonstrate and/or describe clinical severity and complexity: Acute blood loss anemia:Hemoglobin <12 in a female patient is considered anemia. Blood loss expected and with acceptable range for the surgery performed and patient is hemodynamically stable. A portion of this drop is also likely dilutional given fluids given during surgery. Asymptomatic and monitoring CBC and providingsupplements when needed. Cerebral edema:Combined. Nontraumatic cerebral hemorrhage Hypertensive urgency (no end organ damage): control within desired range with titratable infusions if needed. Exam on Discharge: Vitals & Measurements: T:36.3C TMIN:36.0C TMAX:36.5C HR:74(Monitored) RR:24 BP:149/70 BP:110/85(Line) SpO2:94% Oxygen Flow:2(L/Min) Oxygen Therapy:Room Air WT:65.7kg Neuro Exam: EOspon Alert and oriented x3 PERRL, EOMI Right homonymous hemianopsia (BL from prior stroke) Mild expressive aphasia No facial, TM R5 LUE 4+ LLE 4- no drift Discharge Medications: 1.Fluticasone nasal (fluticasone 50 mcg/inh nasal spray) 1 spray in each nostril 2 times daily, as needed for allergy symptoms. 2.Cetirizine (ZyrTEC 10 mg oral tablet) 10 mg (1 tab) by mouth once daily, as needed for allergy symptoms. 3.Metoclopramide (metoclopramide 10 mg oral tablet) 1 tab by mouth 3 times daily. 4.Fluticasone/umeclidinium/vilanterol (Trelegy Ellipta 100 mcg-62.5 mcg-25 mcg/inh inhalation powder) 1 puff Inhalation once daily. 5.Losartan (losartan 50 mg oral tablet) 50 mg (1 tab) by mouth 2 times daily. 6.LevETIRAcetam (Keppra 500 mg oral tablet) 500 mg (1 tab) by mouth 2 times daily. 7.HydrALAZINE (hydrALAZINE 100 mg oral tablet) 100 mg (1 tab) by mouth 3 times daily. 8.Aspirin (aspirin 81 mg oral tablet, chewable) 81 mg (1 tab) by mouth once daily. 9.Clindamycin (clindamycin 150 mg oral capsule) 600 mg (4 cap) by mouth As indicated. one hour before dental and other procedures as directed. 10.Clopidogrel (clopidogrel 75 mg oral tablet) 75 mg (1 tab) by mouth once daily. 11.Albuterol (albuterol 90 mcg/inh inhalation powder) 2 puff Inhalation every 6 hours. 12.Folic acid (folic acid 1 mg oral tablet) 2 mg (2 tab) by mouth once daily. For: Acute right thalamic and left paramedian frontal lobe ischemic stroke status post TNK 4/, etiology likely secondaryto cardioembolic via atrial flutter not on anticoagulation. JG on CPAP. Dyslipidemia. Hemianopia of right eye. Hypertension. 13.Multivitamin (Vitamin A & D) . 14.MetFORMIN (metFORMIN 500 mg oral tablet) 500 mg (1 tab) by mouth 2 times daily. 15.Sodium chloride (sodium chloride 1000 mg oral tablet) every 12 hours. 16.Cholecalciferol (Vitamin D3 50 mcg (2000 intl units) oral capsule) once daily. Allergies and Sensitivities: IVP dye (Mild)hives Adhesive bandageContact dermatitis. Allergy Not found in Searchsneezing, nasal drainage, unknown Aveloxyeast infection Moldupper resp symptoms amLODIPinefatigue/constipation cefuroximec. diff infection Tests Pending: None Scheduled Appointments: Date/Time:Provider/Resource: Jul 11:00 [place] Xiong Jennifer R Location/Instructions:Please arrive 15 minutes prior to your appointment time with [facility], [address], [address], [facility] [address] Date/Time:Provider/Resource: Jul 09:05 Carlos Baron Location/Instructions:[facility] [address], [address], [place] [address], [place] [address] Date/Time:Provider/Resource: Oct 09:50 MD Rg Amy L Location/Instructions:[facility] [address], [facility] [address], [address], [place] [address] . Please arrive 15 min earlier than your appointment time for Check In Process. Discharge Services: Service: Organization: Business Address: Phone Number: Home Care Physician Services [facility] [address], [place], [address] Care Instructions: --Follow up with neurosurgery in one month.You will have a CT scan prior to the visit. You will be contacted with the date and time of this appointment. Call [phone] if you have not received an appointment within5 business days of discharge or to cancel/change an appointment. --HOLD your aspirin until 06/29/2024. --HOLD your Plavix until 07/06/2024. --Take Keppra 1,000 mg twice daily until 06/29/2024, then return to your normal dose of 500 mgtwice daily. --Follow up with your primary care physician (PCP) in 1-2 weeks following discharge. Lifestyle changes such as quitting tobacco, limiting alcohol intake, eating a diet low in salt and saturated fat, and routinely doing 30 minutes of exercise daily can help to improve your health without the addition of prescription medications. Work with your PCP to modify any of the risk factors below which are applicable to you in order to reduce your risk of having another stroke: - High blood pressure - High cholesterol - Diabetes - Obstructive sleep apnea - Being overweight - Tobacco use - Excessive alcohol use - Illicit/Illegal drug use - Atrial fibrillation - Heart disease Diet Instructions: --Resume the same diet from prior to hospitalization. However, good health practices are always encouraged which include a well-balanced, heart healthy diet with moderate restriction of salt and saturated fat. Other restrictions may be needed, including but not limited to, if you are diabetic or onCoumadin as outlined by your doctors. Activity Instructions: --Follow the activities recommended by your physical, occupational, and/or speech therapist. --Gradually increase your activity level with a goal of 30 minutes most days of the week. --Please do not drive or operate heavy machinery until you are cleared by your PCP. Call 911 immediately if experiencing any of the warning signs and symptoms of stroke --B.E. F.A.S.T. : Balance: Is there trouble with walking or coordination? Eyes: Is there double vision or visual loss? Face: Smile - do both sides of the face move equally? Arm: Raise arms - do both arms move equally? Speech: Is speech slurred or inappropriate? Time: Time is critical, call 911 immediately You may also reach the stroke nurse line at [facility] at [phone] (M-F 8a-5p). After hours, contact the care line at . Call for: - any activity causing shortness of breath or chest pain - a fever greater than 101 degrees F - nausea, vomiting or abdominal pain - bleeding or bruising - twitching or seizure activity - any other concerns Contact neurosurgery at [phone] with any other questions/concerns. After 5 PM and on weekends/holidays call [phone] and ask for the neurosurgery resident on-call. . Advance Directive:Living will, Health Care Power of Carding Supervisor I personally spent _ minutes in discharge planning. Electronic Signature on File Electronically Reviewed/Signed by: ANKIT Trevino Author Signature Dt/Tm:06/24/2024 01:56 PM Department of Neurosurgery Electronically Reviewed/Signed by: Mihai Tam MD, MSc, FAANS, FACS, FA Cosigner Signature Dt/Tm: 06/25/2024 09:10 AM Chair, Department of Neurosurgery Professor, Departments of Neurosurgery, Radiology & Public Health Sciences [facility] [address] [place] [address] TT Discharge instructions * ATTILA Velasquez, [place]: PERFORM Event Display: Patient Discharge Instructions Authored Date: [id number] SANDRAAlexisDANIELLE :1950 Visit Date:06/22/2024 Patient Discharge Instructions [facility] For medical concerns, call: . Date of Admission:06/22/2024 Date of Discharge:06/24/2024 Physician:MD Yonatan, Mihai Almanza Service:Neurosurgery Discharge Disposition: . 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 My [employer] is a free service that provides you instant, secure access to your medical information anytime, anywhere. Sign in or set up your account today at [email or web address] Thank you for allowing us to assist you with your healthcare needs. If you need additional community resources, [place] Parson can help at https://www.pa211.org. 211 can assist you in connecting with social programs based on your unique needs and locations. 211 is an anonymous search that can help you locate resources for: Food, Housing, Transportation, Goods, Education and Healthcare. Medications Patient is enrolled in Rx-to-Go Program New medications will be delivered from [facility] to patient's room at discharge: Mon-Sun from 9AM-5 PM. Medications MUST be PICKED UP at [facility] if patient is discharged Mon-Sun after 5 PM or anytime on holidays. Please note, the [facility] closes at 8 PM on weekdays and 5:30 PM on Saturdays, Sundays, and holidays. What How Much When Why Instructions Next Dose multivitamin (Vitamin A & D) Unchanged albuterol (albuterol 90 mcg/ inh inhalation powder) 2 puff(s) Inhalation Every 6 hours Unchanged aspirin (aspirin 81 mg oral tablet, chewable) 1 tab(s) by mouth Once daily HOLD UNTIL Unchanged cetirizine (ZyrTEC 10 mg oral tablet) 1 tab(s) by mouth Once daily as needed for as needed for allergy symptoms Unchanged cholecalciferol (Vitamin D3 50 mcg (2000 intl units) oral capsule) Once daily Unchanged clindamycin (clindamycin 150 mg oral capsule) 4 cap by mouth As indicated one hour before dental and other procedures as directed Unchanged clopidogrel (clopidogrel 75 mg oral tablet) 1 tab(s) by mouth Once daily HOLD UNTIL Unchanged fluticasone nasal (fluticasone 50 mcg/ inh nasal spray) 1 spray(s) in each nostril 2 times daily as needed for allergy symptoms Unchanged fluticasone/ umeclidinium/ vilanterol (Trelegy Ellipta 100 mcg-62.5 mcg-25 mcg/ inh inhalation powder) 1 puff(s) Inhalation Once daily Unchanged folic acid (folic acid 1 mg oral tablet) 2 tab(s) by mouth Once daily 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, etiologylikely secondary to cardioembolic via atrial flutter not on anticoagulation JG on CPAP Dyslipidemia Hemianopia of right eye Hypertension Duration: 90 Days Unchanged hydrALAZINE (hydrALAZINE 100 mg oral tablet) 1 tab(s) by mouth 3 times daily Unchanged levETIRAcetam (Keppra 500 mg oral tablet) 1 tab(s) by mouth 2 times daily Duration: 90 Days take 2 tabs twice daily until the morning of then resume normal dosing Unchanged losartan (losartan 50 mg oral tablet) 1 tab(s) by mouth 2 times daily Unchanged metFORMIN (metFORMIN 500 mg oral tablet) 1 tab(s) by mouth 2 times daily Unchanged metoclopramide (metoclopramide 10 mg oral tablet) 1 tab(s) by mouth 3 times daily Unchanged sodium chloride (sodium chloride 1000 mg oral tablet) Every 12 hours Allergies IVP dye (Mild)hives Adhesive bandageContact dermatitis. Allergy Not found in Searchsneezing, nasal drainage, unknown Aveloxyeast infection Moldupper resp symptoms amLODIPinefatigue/constipation cefuroximec. diff infection What to do next Instructions From Your Doctor --Follow up with neurosurgery in one month.You will have a CT scan prior to the visit. You will be contacted with the date and time of this appointment. Call [phone] if you have not received an appointment within5 business days of discharge or to cancel/change an appointment. --HOLD your aspirin until 06/29/2024. --HOLD your Plavix until 07/06/2024. --Take Keppra 1,000 mg twice daily until 06/29/2024, then return to your normal dose of 500 mgtwice daily. --Follow up with your primary care physician (PCP) in 1-2 weeks following discharge. Lifestyle changes such as quitting tobacco, limiting alcohol intake, eating a diet low in salt and saturated fat, and routinely doing 30 minutes of exercise daily can help to improve your health without the addition of prescription medications. Work with your PCP to modify any of the risk factors below which are applicable to you in order to reduce your risk of having another stroke: - High blood pressure - High cholesterol - Diabetes - Obstructive sleep apnea - Being overweight - Tobacco use - Excessive alcohol use - Illicit/Illegal drug use - Atrial fibrillation - Heart disease You were offered a Hepatitis C screening test and you declined. Please follow up with your PCP. If you notice the following symptoms Call 911 immediately if experiencing any of the warning signs and symptoms of stroke --B.E. F.A.S.T. : Balance: Is there trouble with walking or coordination? Eyes: Is there double vision or visual loss? Face: Smile - do both sides of the face move equally? Arm: Raise arms - do both arms move equally? Speech: Is speech slurred or inappropriate? Time: Time is critical, call 911 immediately You may also reach the stroke nurse line at [facility] at [phone] ([phone]). After hours, contact the care line at . Call for: - any activity causing shortness of breath or chest pain - a fever greater than 101 degrees F - nausea, vomiting or abdominal pain - bleeding or bruising - twitching or seizure activity - any other concerns Contact neurosurgery at [phone] with any other questions/concerns. After 5 PM and on weekends/holidays call [phone] and ask for the neurosurgery resident on-call. Contact the [facility] Careline at . If unable to contact your physician and you feel it is an emergency, go to the nearest Emergency Room or call [phone] Diet Instructions Speech Therapy Recommendations: cognitive-linguistic therapy internal and external memory strategies decrease distractions when communicating with patient --Resume the same diet from prior to hospitalization. However, good health practices are always encouraged which include a well-balanced, heart healthy diet with moderate restriction of salt and saturated fat. Other restrictions may be needed, including but not limited to, if you are diabetic or onCoumadin as outlined by your doctors. Activity Instructions --Follow the activities recommended by your physical, occupational, and/or speech therapist. --Gradually increase your activity level with a goal of 30 minutes most days of the week. --Please do not drive or operate heavy machinery until you are cleared by your PCP. Follow-Up Appointments Scheduled Follow-Up Appointments Date/Time:Provider/Resource: Jul 11:00 [place] Xiong Jennifer R Location/Instructions:Please arrive 15 minutes prior to your appointment time with [facility], [address] [place] [address], [address], [facility] [address] Date/Time:Provider/Resource: Jul 09:05 Carlos Baron Location/Instructions:[facility], [facility], [address], [place] [address] Date/Time:Provider/Resource: Oct 09:50 MD Rg Amy L Location/Instructions:[facility], [address], [address], [place] [address] . Please arrive 15 min earlier than your appointment time for Check In Process. The Following Services Have Been Arranged for You Service: Organization: Business Address: Phone Number: Home Care Physician Services [facility] Home Healthcare [facility] [address], [place], [address] Tests Pending None Special Instructions Common Emergency Awareness Tips Call [...] of these heart attack warning signs, call to get immediate medical attention! Education Materials Stroke Patient Discharge Instructions After Discharge if you have any questions or concerns, you can call the stroke care nursing line [phone] Modification of risk factors has been shown to reduce stroke occurrence. Below are risk factors that you should modify, as applicable. Tobacco use High Cholesterol High blood pressure Diabetes Heart disease Atrial fibrillation Excessive alcohol use Being overweight Illegal drug use Sleep apnea Diet: It is important to follow a heart healthy diet, low in salt and saturated fats. If you are diabeticor are on Coumadin (warfarin), you may need to take additional precautions. Activity: Follow the activities recommended by your physical, occupational and/or speech therapist. Graduallyincrease your activity with a goal of 30 minutes most days of the week. Please do not drive or operate heavy machinery until you are seen by your primary care physician oruntil you are given clearance to do so by your Neurologist. Call your doctor if: any activity causes shortness of breath or chest pain you develop a fever greater than 101 F nausea, vomiting or abdominal pain bleeding or bruising twitching or seizure activity or if you have any other concerns Call 911 immediately if experiencing any of the warning signs and symptoms of stroke: Sudden numbness or weakness of the face, arm or leg, especially on one side of the body Sudden confusion, trouble speaking or understanding Sudden trouble seeing in one or both eyes Sudden trouble walking, loss of balance or coordination Sudden severe headache with no known cause Act F.A.S.T. Face: Smile, do both sides of face move equally Arm: Raise arms, do both arms move equally Speech: Is speech slurred or inappropriate Time: Time is critical, call 911 immediately Special Instructions: 1. Follow-up with your Primary Care Physician in 1-2 weeks following discharge. 2. You will follow up with neurology at 30-90-365 days after discharge; you will be contacted with these appointments. If you have any concerns, please contact the Neurology clinic at [phone]. 3. Lifestyle changes such as quitting tobacco, limiting alcohol intake, eating a diet low in saltand saturated fat and routinely doing 30 minutes of exercise daily can help to improve your health without the addition of prescription medications 4. Your medications have been adjusted; please take your medicines as instructed by the list provided with this paperwork. 5. Take all of your medications as prescribed. Taken properly, these medications can reduce therecurrence of your symptoms. Inpt Proc * ATTILA Reddy, Mariela Carranza: PERFORM Event Display: Inpt Proc Authored Date: [id number] INPATIENT PROCEDURE NOTE Name: DANIELLE MATTA Patient Number: [id number] : 1950 Date of Service: 06/22/2024 X Timeout Performed Procedure: Arterial line insertion Performed by: Mariela Reddy PA-C Attending: Dr. Covarrubias Indication: Hypertension and BP augmentation with vasoactive gtt titration [place] Protocol: Time out was performed. Patient, side, site and procedure was verified Consent: Verbal informed consent was obtained after explaining the indications, risks and benefits to the patient Procedure Summary: After an Juvenal test was performed to ensure adequate perfusion, the left wrist was prepped using chlorhexidine scrub and draped in sterile fashion. The radial pulse was identified and the wrist was positioned in the usual fashion. 2 mls of 1 % lidocaine was used to anesthetize the skin. Using the Arrow Radial Arterial Line Kit, a needle was inserted into the radial artery underdirect ultrasound guidance. Arterial blood was seen to pulsate in the flash chamber. The needle wasremoved with arterial blood noted in the catheter. The internal guidewire was advanced easily into the radial artery. The catheter was then advanced over the wire and the needle and wire were withdrawn. Arterial blood noted. The catheter was connected to the hospital monitor and calibrated. Appropriate waveform and blood pressure tracing was observed. A sterile opsite was placed over the catheter at the insertion site.The patient tolerated this procedure well and there were no immediate complications. Estimated Blood Loss (EBL): 2 ml Ultrasound guided: Yes Electronic Signature on File Electronically Reviewed/Signed by: Mariela Reddy PA-C Author Signature Dt/Tm:06/22/2024 04:25 PM Department of Neurosurgery Electronically Reviewed/Signed by: Costa Covarrubisa III, MD Cosigner Signature Dt/Tm: 06/22/2024 05:19 PM Department of Anesthesia KDP Patient Care team information Care Team Personnel Name: Yohannes Howard Christine A Position: Pharmacist Member Role: Pharmacy - Lifetime Name: Yohannes Brody Kimberly Position: Pharmacist BCMA Member Role: Pharmacy - Lifetime Address: [address] [address] [place] Name: MD Daysi, Becky Millan Position: Physician - Family Med Member Role: Primary Care Provider Address: [address] [facility] [address] [place] [address] [place] Name: Yohannes Lundberg Ann Position: Pharmacist Member Role: Pharmacy - Lifetime Name: MD Jayda, Segun Giles Position: Physician - Sports Medicine [place] Member Role: Lifetime Relationship Address: [address] [facility] [address] [place] [address] [place] Care Team Related Persons Name: DM MATTA
--- NOTE | 2024-06-30 08:38 | CT Scan Report ---
CT OF THE HEAD WITHOUT CONTRAST CLINICAL HISTORY: stroke like sx COMPARISON STUDY: Head CT June 29, 2024. CT DOSE: 547.75 mGy.cm TECHNIQUE: Helical axial images of the head were obtained without IV contrast. Automated exposure con trol was utilized for the study. A dose lowering technique was utilized adhering to the principles o f ALARA. FINDINGS: A 2.2 x 1.8 cm intraparenchymal hematoma within the left temporal lobe is unchanged since C T of June 29, 2024. This has slightly decreased in size since CT of June 22, 2024. Associated vasogenic edema is unchanged. Old left parieto-occipital infarct is again noted. Ventricular system is stable. No new sites of hemorrhage are present. Old infarcts within the right basal ganglia are un changed. There are no findings to suggest acute dural sinus thrombosis or acute territorial infarct. There are no calvarial fractures. IMPRESSION: 1. No acute intracranial findings. 2. No change in a subacute intraparenchymal hematoma within the left temporal lobe since head CT of N 2023. No change in appearance of the brain. ACT 112: Negative or not required by law. Electronically signed by: Dean Vasquez M.D. 06/30/2024 8:37 AM
[2024-06-30] MEDS ORDERED: MAGNESIUM OXIDE 400 MG TAB PO SCH (09:00)
[2024-06-30 09:26] LABS: Basophils # (auto) 0.01 K/uL (0.00-0.20); Basophils % (auto) 0.2 %; Eosinophils # (auto) 0.07 K/uL (0.00-0.50); Eosinophils % (auto) 1.4 %; Hematocrit (blood only) 34.9 % (37.0-47.0); Hemoglobin 11.4 g/dl (12.0-16.0); Immature Granulocytes # (auto) 0.02 K/uL (0.01-0.20); Immature Granulocytes % (auto) 0.4 %; Lymphocytes % (auto) 13.7 %; Mean Corpuscular Hemoglobin 28.1 pg (25.0-34.0); Mean Corpuscular Hgb Conc 32.7 g/dL (32.0-36.0); Mean Corpuscular Volume 86.2 fL (80.0-100.0); Mean Platelet Volume 9.6 fL (9.4-12.4); Monocytes # (auto) 0.35 K/uL (0.11-0.59); Monocytes % (auto) 6.9 %; Neutrophils # (auto) 3.95 K/uL (1.40-6.50); Neutrophils % (auto) 77.4 %; Platelet Count 276 K/uL (130-400); RDW Coefficient of Variation 14.8 % (11.5-14.5); RDW Standard Deviation 47.3 fL (36.4-46.3); Red Blood Count 4.05 M/uL (4.20-5.40)
[2024-06-30 09:40] LABS: BUN Creatinine Ratio 22.2 (10-20); Calcium 9.2 mg/dl (8.6-10.3); Creatinine Clr Calc Pharmacy 78.9 ml/min; Magnesium 1.7 mg/dl (1.7-2.4)
[2024-06-30] MEDS: FLUTICASONE FUROATE 100MCG 14 PUFFS/INHALER INH SCH (09:40)
[2024-06-30] MEDS: UMECLIDINIUM/VILANTEROL 62.5/25MCG 7 PUFFS/INHALER INH SCH (09:41)
[2024-06-30] MEDS: METOPROLOL TARTRATE 25 MG TAB PO SCH (10:37)
--- NOTE | 2024-06-30 10:54 | Pharmacy Report ---
- Date of Service June 30, 2024 - Pharmacy CVA/TIA Medication Review Medications to Prevent Stroke handout has been added to the patients discharge packet. Antiplatelet(s) * Antiplatelet therapy deferred at this time due to recent intraparenchymal hemorrhage (06/22/24). May add aspirin 81 mg PO daily in 7-10 days per neurology note. Cholesterol * High intensity statin: atorvastatin 40 mg daily to be started on discharge. Hold while inpatient. DVT Prophylaxis * SCD knee Therapeutic Anticoagulation * Hx Afib/Aflutter noted, but anticoagulation is being deferred due to recent intraparenchymal hemorrhage. Watchman device present. Type 2 Diabetes * Patient has T2DM well-controlled on metformin, per Dr. Alejandre, a diabetes medication with CVD benefit (such as GLP-1 agonist or SGLT-2 inhibitor) will be deferred to their outpatient provider due to familiarity with risks/benefits of such therapies. "Medications to prevent stroke" handout has already been added to the patient's discharge packet, which instructs the patient to follow up with their outpatient provider to evaluate which diabetes medication with proven CVD benefit is best for them
--- NOTE | 2024-06-30 12:26 | Neurology Progress Note ---
Date of Service June 30, 2024 Assessment & Plan (1) Intraparenchymal hemorrhage of brain: (2) Stroke-like symptoms: (3) H/O: stroke with residual effects: Plan History of left occipital parietal infarct, post TNK, development of intraparenchymal hemorrhage, subsequently resolved, interval development of an anterior left temporal lobe intraparenchymal hemorrhage which has been stable. Has not had any obvious seizure activity, on Keppra, should continue with this medication. Her clinical presentation seems consistent with transient recrudescence of previous stroke symptoms rather than seizure activity. Patient unable to have MRI. However, MRI would not alter her management and is not acutely necessary. If she experiences further similar episodes, would consider obtaining an outpatient EEG. Patient may restart aspirin 81 mg/day. Would recommend a repeat noncontrast CT of the head in 1 week to continue to ensure stability. Would avoid dual antiplatelet therapy in this patient. Admission and Anticipated Discharge Date Admission Date: June 29, 2024 Subjective Follow-up regarding history of intracerebral hemorrhage Patient evaluated with her spouse at bedside, she has been clinically stable, continues to have mild aphasia as a result of her previous left posterior hemispheric infarct. She has a low-grade headache. She has not exhibited any obvious convulsive activity. A follow-up CT of the head completed this morning revealed stability of her left temporal lobe intraparenchymal hemorrhage measuring 2.2 x 1.8 cm. She has a chronic left parieto-occipital infarct and chronic infarcts within the right basal ganglia. I independently reviewed these images. Results & Data Vital Signs (Past 12 Hours) Vital Signs Temp Pulse Pulse Resp BP BP Pulse Ox 06/30/24 11:26 36.8 C 59 L 14 158/88 H 90 06/30/24 07:34 36.7 C 72 16 176/71 H 90 06/30/24 03:56 85 146/80 H 06/30/24 03:41 88 170/71 H 06/30/24 03:05 88 170/71 H 06/30/24 02:50 79 179/85 H 06/30/24 02:25 36.5 C 79 18 179/85 H 94 O2 Del Method 06/30/24 11:26 Room Air 06/30/24 07:34 Room Air 06/30/24 03:56 06/30/24 03:41 06/30/24 03:05 06/30/24 02:50 06/30/24 02:25 BiPAP Exam (Neuro) Eyes: PERRL and EOM intact bilaterally; + abnormal visual field confrontation (Patient has a right homonymous hemianopsia with confrontation testing) and no nystagmus Neurologic: Oriented to:: Person, Place and Time Cognitive Function: negative Calculations (Mild difficulty with simple calculations) Cortical Function: Motor Apraxia (Exhibits apraxia with pantomime) Memory: Short Term Intact and Remote Intact Attention: Span Intact and Concentration Intact Speech Fluency: Dysfluency; negative Dysarthria Speech Aphasia: Aphasia (Mild aphasia, occasional paraphasias, word substitutions, difficulty repeating phrases) and Other (Patient exhibits alexia) Fund of Knowledge: Current Events, Past History and Vocabulary Cranial Nerves: Normal III, IV, , V, VII, VIII, IX, X, XI and XII; Abnorm II (Right homonymous hemianopsia) Motor Strength: Normal Lower Extremities, Normal Upper Extremities and Pronator Drift Laterality: Right Motor Tone: Normal Lower Extremities and Normal Upper Extremities Muscle Bulk/Involuntary Movements: No Involuntary Movements; negative Muscle Atrophy Sensation: Light Touch Intact, Pain/Temperature Intact and Proprioception Intact Coordination: Finger-Nose Abnormal Laterality: Right and Heel-Lind Abnormal Laterality: Right PG Care Time/CCT Total # of Minutes Spent Total Time Spent with Patient: Total time spent is greater than 50% in coordination of care (as documented) at patient's floor/unit and/or counseling patient: Coding Level of Care Code 27742 SUB INP/OBS CARE 3/50MIN Diagnoses Intraparenchymal hemorrhage of brain I61.9 Stroke-like symptoms R29.90 H/O: stroke with residual effects I69.30 Time Spent (min) 60 Comment Total time includes patient contact, chart review, counseling, note preparation
[2024-06-30] MEDS: METOPROLOL TARTRATE 25 MG TAB PO STA (16:51)
--- NOTE | 2024-06-30 19:28 | Hospitalist Progress Note ---
Date of Service June 30, 2024 Assessment & Plan (1) Stroke-like symptoms: Plan: patient presented with right sided numbness & weakness on 06/29/24 these symptoms were different than her symptoms she had had when she presented to [facility] on 06/22/24 when she was first dx with her left-sided hemorrhagic stroke unfortunately we cannot perform MRI or MRA brain (has pacemaker) with that said head CT yesterday and again today are stable & improving with slowly resolving blood Dr Solares today feels that her presentation was likely transient recrudescence of stroke symptoms On CT she still has considerable amount of edema and this could be affecting the motor/sensory portion of the left brain giving her the right-sided symptoms regardless her numbness is nearly resolved today and her motor weakness on the right is gone Dr Solares feels she can resume her aspirin 81mg daily but HOLD plavix Repeat head CT in 1 week as outpatient - I gave script to [facility] [place] bridget to set this up (2) Hemorrhagic stroke: Plan: left-sided temporal lobe hemorrhagic stroke - 06/22 required transfer to neuro ICU at [place] was d/c home on 06/24 CT head x 2 this admission with improving blood see #1 above (3) HTN (hypertension): Plan: poorly controlled especially in the setting of #1, #2 above was on hydralazine 100mg TID + losartan 50mg BID upon presentation required IV labetalol overnight x 2 will add metoprolol 25mg BID starting this am (I gave an additional 25mg of metoprolol mid-afternoon as well) she ultimately may need 50mg BID of meto tartrate (4) UTI (urinary tract infection): Plan: u/a yesterday with 4+ bacteria patient with h/o recurrent UTI including one due to pseudomonas about a year ago cont cefepime while awaiting culture (5) Type 2 diabetes mellitus: Plan: a1c 5.3% in 04/2024 BSGs have been very good while here a1c 5.3% is not even c/w pre-DM (6) Presence of Watchman left atrial appendage closure device: (7) Paroxysmal atrial fibrillation: Plan: no a.fib seen while here she is NOT on anticoagulation at this time (8) GERD (gastroesophageal reflux disease): Plan: no issues at this time (9) FSH (facioscapulohumeral muscular dystrophy): Plan: follows with [facility] the breathing pattern I see on exam - due to combination of COPD + MD? (10) COPD (chronic obstructive pulmonary disease): Plan: follows with [facility] Pulm her O2 sats are borderline low at times thus obtained 2-step ambulatory O2 test -- passed such cont inhalers, etc (11) SIADH (syndrome of inappropriate ADH production): Plan: Na level 137-140 while here cont salt tabs - 1gm BID recheck BMP am (12) Carcinoid syndrome: Plan: past history of noted (13) Obstructive sleep apnea: Plan: on CPAP at home Plan passed PT/OT evals - can return home with at d/c recommended no d/c today -- await urine cx, work on BP control changed observation status to full admit status updated at bedside Admission and Anticipated Discharge Date Admission Date: June 29, 2024 Subjective patient overall feeling well numbness in right face (near the mouth) and right hand continue to improve scant amount of numbness is still present on the face and only the tips of a few fingers of the right hand are still numb the remaining portion of the RUE/RLE are back to normal denies motor weakness of either the right arm or right leg overnight needed a few doses of labetalol IV for her BP updated at bedside he states she is at baseline with her breathing, etc. Review of Systems Review of Systems: gen - tele overnight wnl; eating fair (doesn't like the hospital food) cv - no chest pain, no orthopnea, no PND pulm - mild BERMAN only GI - no pain or N/V Physical Exam Physical Exam: gen - laying in bed, breathing pattern unchanged from prior visits (mild quiet tachypnea), NAD mouth - MMM neck - no JVD heart - RRR, extra beats, s1 s2, no murmur lungs - CTA b/l abd - soft NT ND BS+ ext - no edema, pulses 2+ b/l neuro - no facial droop; strength 5/5 x 4 exts; sensation intact to light touch face & 4 extremities including the right hand & near the right mouth Results & Data Results & Data Vital Signs (Past 12 Hours) Vital Signs Temp Pulse Pulse Pulse Pulse Pulse Resp 06/30/24 19:15 36.9 C 73 21 06/30/24 15:49 71 06/30/24 15:15 85 67 06/30/24 15:06 36.7 C 91 H 18 06/30/24 11:26 36.8 C 59 L 14 06/30/24 07:34 36.7 C 72 16 Resp Resp BP BP Pulse Ox Pulse Ox Pulse Ox 06/30/24 19:15 170/87 H 91 06/30/24 15:49 06/30/24 15:15 18 15 91 93 06/30/24 15:06 166/88 H 91 06/30/24 11:26 158/88 H 90 06/30/24 07:34 176/71 H 90 O2 Del Method 06/30/24 19:15 CPAP 06/30/24 15:49 06/30/24 15:15 06/30/24 15:06 Room Air 06/30/24 11:26 Room Air 06/30/24 07:34 Room Air Laboratory Results Laboratory Results - last 24 hr 06/30/24 06/30/24 06/30/24 07:13 08:55 11:04 WBC 5.10 RBC 4.05 L Hgb 11.4 L Hct 34.9 L MCV 86.2 MCH 28.1 MCHC 32.7 RDW Std Deviation 47.3 H RDW Coeff of Lion 14.8 H Plt Count 276 MPV 9.6 Immature Gran % (Auto) 0.4 Neut % (Auto) 77.4 Lymph % (Auto) 13.7 Pitt % (Auto) 6.9 Eos % (Auto) 1.4 Baso % (Auto) 0.2 Neut # (Auto) 3.95 Lymph # (Auto) 0.70 L Pitt # (Auto) 0.35 Eos # (Auto) 0.07 Baso # (Auto) 0.01 Immature Gran # (Auto) 0.02 Sodium 137 Potassium 4.0 Chloride 106 Carbon Dioxide 25 Anion Gap 6 BUN 12 Creatinine 0.54 L Est Cr Clr Drug Dosing 78.9 eGFR 96.55 BUN/Creatinine Ratio 22.2 H Glucose 116 H POC Glucose 98 99 Calcium 9.2 Magnesium 1.7 06/30/24 06/30/24 16:01 20:38 WBC RBC Hgb Hct MCV MCH MCHC RDW Std Deviation RDW Coeff of Lion Plt Count MPV Immature Gran % (Auto) Neut % (Auto) Lymph % (Auto) Pitt % (Auto) Eos % (Auto) Baso % (Auto) Neut # (Auto) Lymph # (Auto) Pitt # (Auto) Eos # (Auto) Baso # (Auto) Immature Gran # (Auto) Sodium Potassium Chloride Carbon Dioxide Anion Gap BUN Creatinine Est Cr Clr Drug Dosing eGFR BUN/Creatinine Ratio Glucose POC Glucose 131 H 120 H Calcium Magnesium Diagnostic Findings Head CT 06/30/24 08:00 CT OF THE HEAD WITHOUT CONTRAST CLINICAL HISTORY: stroke like sx COMPARISON STUDY: Head CT June 29, 2024. CT DOSE: 547.75 mGy.cm TECHNIQUE: Helical axial images of the head were obtained without IV contrast. Automated exposure control was utilized for the study. A dose lowering technique was utilized adhering to the principles of ALARA. FINDINGS: A 2.2 x 1.8 cm intraparenchymal hematoma within the left temporal lobe is unchanged since CT of June 29, 2024. This has slightly decreased in size since CT of June 22, 2024. Associated vasogenic edema is unchanged. Old left parieto-occipital infarct is again noted. Ventricular system is stable. No new sites of hemorrhage are present. Old infarcts within the right basal ganglia are unchanged. There are no findings to suggest acute dural sinus thrombosis or acu te territorial infarct. There are no calvarial fractures. IMPRESSION: 1. No acute intracranial findings. 2. No change in a subacute intraparenchymal hematoma within the left temporal lobe since head CT of June 29, 2024. No change in appearance of the brain. ACT 112: Negative or not required by law. Electronically signed by: Dean Vasquez M.D. 06/30/2024 8:37 AM PG Care Time/CCT Total # of Minutes Spent Total Time Spent with Patient: Total time spent is greater than 50% in coordination of care (as documented) at patient's floor/unit and/or counseling patient: Coding Level of Care Code 77804 SUB INP/OBS CARE 3/50MIN Diagnoses Stroke-like symptoms R29.90 Hemorrhagic stroke I61.9 HTN (hypertension) I10 Urinary tract infection without hematuria, site unspecified N39.0 Urinary tract infection type: site unspecified Hematuria presence: without hematuria Type 2 diabetes mellitus E11.9 Presence of Watchman left atrial appendage closure device Z95.818 Paroxysmal atrial fibrillation I48.0 GERD (gastroesophageal reflux disease) K21.9 FSH (facioscapulohumeral muscular dystrophy) G71.02 COPD (chronic obstructive pulmonary disease) J44.9 SIADH (syndrome of inappropriate ADH production) E22.2 Carcinoid syndrome E34.0 Obstructive sleep apnea G47.33 (4) UTI (urinary tract infection) Urinary tract infection type: site unspecified Hematuria presence: without hematuria Qualified Code(s): N39.0 - Urinary tract infection, site not specified
[2024-06-30] MEDS: ACETAMINOPHEN 325 MG TAB PO PRN (23:51)
[2024-07-01 08:02] VITALS: RESP 20; TEMP 98.2; O2SAT 91
[2024-07-01 08:36] LABS: BUN Creatinine Ratio 18.4 (10-20); Calcium 9.2 mg/dl (8.6-10.3); Potassium 3.9 mmol/L (3.5-5.1)
[2024-07-01] MEDS: ASPIRIN 81 MG ECTAB PO SCH (09:10)
[2024-07-01] MEDS ORDERED: STROKE PATIENT DISCHARGE STA (09:55)
[2024-07-01 10:19] VITALS: PULSE 68
[2024-07-01 10:41] VITALS: BP 156/78
--- NOTE | 2024-07-01 18:29 | Discharge Summary ---
Discharge Summary Date of Service July 01, 2024 Principal Dx & Hospital Course #1 = Principal Diagnosis (1) Stroke-like symptoms: 74 y/o recently admitted 06/22 with left-sided hemorrhagic stroke. Presented with right sided numbness & weakness on 06/29/24 unfortunately we cannot perform MRI or MRA brain (has pacemaker) with that said serial head CTs are stable & improving with slowly resolving blood Neurologist Dr Solares consulted feels that her presentation was likely transient recrudescence of stroke symptoms related to UTI Symptoms now resolved He recommended repeat head CT in 1 week, stop plavix and continue aspirin, continue keppra 500 mg bid, follow up in neurology (2) Hemorrhagic stroke: left-sided temporal lobe hemorrhagic stroke - 06/22 required transfer to neuro ICU at [place] was d/c home on 06/24 CT head x 2 this admission with improving blood increased metoprolol for better BP control see #1 above (3) HTN (hypertension): poorly controlled especially in the setting of #1, #2 above was on hydralazine 100mg TID + losartan 50mg BID upon presentation -started metoprolol and uptitrated dose with improved BP -has had lightheadedness on metoprolol in past, may be able to be discontinued farther out from her ICH if BP improves (4) UTI (urinary tract infection): symptomatic of dysuria, u/a with 4+ bacteria, culture polymicrobial patient with h/o recurrent UTI including one due to pseudomonas about a year ago -treated with cefepime three days in hospital, complete a course of oral keflex. symptoms much improved (5) Type 2 diabetes mellitus: a1c 5.3% in 04/2024 BSGs have been very good while here (6) Presence of Watchman left atrial appendage closure device: (7) Paroxysmal atrial fibrillation: no a.fib seen while here she is NOT on anticoagulation at this time because of ICH (8) GERD (gastroesophageal reflux disease): no issues at this time (9) FSH (facioscapulohumeral muscular dystrophy): follows with [facility] (10) COPD (chronic obstructive pulmonary disease): follows with [facility] Pulm her O2 sats are borderline low at times thus obtained 2-step ambulatory O2 test -- passed such cont inhalers, etc (11) SIADH (syndrome of inappropriate ADH production): Na level 137-140 while here cont salt tabs - 1gm BID (12) Carcinoid syndrome: past history of noted (13) Obstructive sleep apnea: on CPAP at home Plan updated at bedside 07/[address] Notes For Next Care Provider repeat head CT in 1 week - we are arranging through neuro clinic Medication Changes From Visit stopped plavix keppra reduced to 500 bid as per previous plan keflex po Admission HPI Per Admitting Provider Patient is a 74-year-old female with PMH of hemorrhagic stroke 06/22/24, ischemic stroke s/p TNK 11/2023, JG on Cpap, 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 She presents today due to right-sided numbness, and weakness in her right arm and BL legs. She stated that she woke up around 730 this morning and had right sided facial and right UE numbness. She also felt weakness in her right arm and leg. She has chronic weakness in her left leg due to a recent hip fracture. She is also unsure if the right leg weakness is new or ongoing/chronic. She has residual expressive aphasia from her recent hemorrhagic stroke; she had no numbness or weakness with the hemorrhagic stroke. She also had blurry vision in her right eye this morning that is improving. Her headache from this morning is resolved. Patient denies fever, chills, headache, dizziness, lightheadedness, sore throat, cough, sputum production, dyspnea, dyspnea on exertion, chest pain, abdominal pain, nausea, vomiting, diarrhea, constipation, edema. Her denies seizure like activity. After her discharge from [facility] Sunday, she was to hold her aspirin until today, she did take it this morning. She also is holding her Plavix until 07/06. They noted that she take 1000 Mg of Keppra daily, with switch to 500 mg daily 06/29. Patient said they did not realize this change and she did take 1000 mg this AM. She was to be set up with [facility] home health after being discharged from [facility] on Sunday; They have not yet seen her at home. She uses a walker at baseline. She does not use daily oxygen at home, just CPAP overnight. She does have a DNR/DNI in her living well, but discussed with her and would wish to be full code at this time. Patient's updated at bedside. Discharge Exam PHYSICAL EXAMINATION Last 24h vital signs reviewed, see documentation in flowsheet General: comfortable appearing, no distress HEENT: Normocephalic, atraumatic, pupils round and equal, sclerae anicteric, no conjunctival injection, moist mucus membranes Lungs: Normal respiratory effort. Clear to auscultation bilaterally. No RRW Heart: Regular rate and rhythm, no murmurs. No JVD Abdomen: Soft, nontender, nondistended. Bowel sounds present. Extremities: Warm, dry, well-perfused. No extremity edema. Neuro: Alert and oriented, some aphasia present, face symmetric, moves 4 extremities well Psych: Normal affect and behavior Discharge Plan Discharge Items Patient Disposition: Home - Home Health Services Reason For Visit: STROKE, UTI Discharge Diagnosis: UTI, recent stroke with recrudescence of symptoms Activity: Resume your previous activity Non-emergency contact: Primary Care Provider and Neurologist Call non-emergency contact if: you have any medication questions and your symptoms worsen Follow-up/Referrals: Lexx Solares MD [Physician] - 07/16/24 9:00 am (Hospital follow up on July 16 at 9 am) Becky Tavarez MD [Primary Care Provider] - 07/07/24 3:00 pm (Hospital follow up on July 07 at 3 pm with an arrival time of 2:45. This appointment is at [address] [facility] [address] Diet: Carb Consistent or DM2 and Low Sodium (2gm) Addtl Attending Provider Instructions: You had recurrence of previous stroke-like symptoms. There was no new stroke or hemorrhage, so the worsening was probably triggered by UTI Complete the course of antibiotics. We are arranging a repeat head CT scan in apx 1 week to check on the progress of the hemorrhage. Continue aspirin but do not take plavix (clopidogrel) Your levetiracetam dose (keppra) is now 500 mg twice a day We restarted metoprolol succinate 50 mg qAM for blood pressure Follow up with neurologist Continue home health PT, OT and speech therapy It was a pleasure taking care of you in the hospital, Doreen Shaw MD Pending Studies at Discharge: No Stand-Alone Forms: My [facility], Smoking Cessation, Medications to Prevent Stroke Medications and DC Order Prescriptions: New metoprolol succinate [Toprol XL] 50 mg tablet extended release 24 hr 50 mg PO DAILY Qty: 30 0RF cephalexin 500 mg tablet 500 mg PO BID Qty: 8 0RF magnesium oxide 400 mg (241.3 mg magnesium) Tablet 400 mg PO QAM Qty: 0 0RF Continued Trelegy Ellipta 100-62.5-25 mcg blister with device 1 inh inhalation DAILY Qty: 3 3RF sodium chloride 1,000 mg tablet,soluble 1,000 mg PO BID Qty: 60 0RF metoclopramide HCl 10 mg tablet 10 mg PO TID fluticasone propionate [Flonase Allergy Relief] 50 mcg/actuation spray,suspension 2 spray intranasal DAILY PRN (Reason: Allergy Symptoms) Rx Instructions: administer into each nostril Zyrtec 10 mg capsule 10 mg PO DAILY PRN (Reason: Allergy Symptoms) albuterol sulfate [Ventolin HFA] 90 mcg/actuation HFA aerosol inhaler 2 puff inhalation Q4H PRN (Reason: Shortness Of Breath) Qty: 3 3RF Prolia 60 mg/mL syringe 60 mg subcut UD Rx Instructions: [id number]. Not not on faxed med list multivitamin Tablet 1 tab PO UD Rx Instructions: 1 tab po qam. Not not on faxed med list losartan 50 mg tablet 50 mg PO BID levetiracetam [Keppra] 500 mg Tablet 500 mg PO BID tramadol 50 mg Tablet 50 mg PO UD PRN (Reason: Pain) Rx Instructions: 50 mg po q4h prn. Not not on faxed med list aspirin 81 mg Tablet,Chewable 81 mg PO DAILY Rx Instructions: on hold until 06/29 folic acid 1 mg tablet 1 mg PO BID hydralazine 50 mg Tablet 100 mg PO TID Qty: 90 0RF metformin 500 mg Tablet 500 mg PO BID clindamycin HCl 150 mg Capsule 150 mg PO UD PRN (Reason: dental/other procedures) Rx Instructions: 4 caps po cholecalciferol (vitamin D3) 50 mcg (2,000 unit) Capsule 50 mcg PO DAILY polyethylene glycol 3350 [Miralax] 17 gram powder in packet 17 g PO UD PRN (Reason: constipation) Rx Instructions: 17 g po daily prn. Not not on faxed med list acetaminophen [Tylenol Extra Strength] 500 mg tablet 1,000 mg PO UD Rx Instructions: 1000 mg po tid. Not not on faxed med list esomeprazole magnesium 40 mg capsule,delayed release(DR/EC) 40 mg PO UD Rx Instructions: 40 mg po qpm. Not not on faxed med list bisacodyl [Gentle Laxative (bisacodyl)] 5 mg tablet,delayed release (DR/EC) 5 mg PO UD PRN (Reason: constipation) Rx Instructions: 5 mg po daily prn. Not not on faxed med list Discontinued clopidogrel 75 mg tablet 75 mg PO QAM Rx Instructions: TAKE 1 TABLET EVERY MORNING hydromorphone 2 mg tablet 3 mg PO UD PRN (Reason: pain (scale score 7-10)) Rx Instructions: 3 mg po q6h prn. Not not on faxed med list Discharge Orders: Discharge Order (Routine); Ordered 07/01/24 Ordered By: Doreen Shaw Admission Data Admit Date/Time: 06/30/24 20:45 Attending Provider: Doreen Shaw Admit Provider: Jens Alejandre Primary Care Provider: Becky Tavarez Other Providers: Jens Alejandre; Don Dorsey; [facility],Home Healthcare Other Interventions: Discharge Summary Assessment (RN) Last Done: 07/01/24 10:25 Hospital Stay Data Consultations 06/29/24 09:40 ED Decision to Admit Stat 06/29/24 10:43 Consult Neurology Routine Diagnostic Imagining Performed 06/29/24 08:39 CT head/brain wo con Stat 06/30/24 08:[address] [CT head/brain wo con] DAILY Pending Results Patient Have Any Pending Studies at Discharge: No Discharge Instructions Given to Patient (Per Discharging Provider) You had recurrence of previous stroke-like symptoms. There was no new stroke or hemorrhage, so the worsening was probably triggered by UTI Complete the course of antibiotics. We are arranging a repeat head CT scan in apx 1 week to check on the progress of the hemorrhage. Continue aspirin but do not take plavix (clopidogrel) Your levetiracetam dose (keppra) is now 500 mg twice a day We restarted metoprolol succinate 50 mg qAM for blood pressure Follow up with neurologist Continue home health PT, OT and speech therapy It was a pleasure taking care of you in the hospital, Doreen Shaw MD Total Time Total Time Spent Total Time Spent (In Minutes): I personally spent: 40 minutes today on clinical care activities including: reviewing chart notes and vital signs reviewing labs reviewing studies discussion with healthcare associate examining and counseling the patient counseling the patient's family writing orders writing prescriptions, discharge instructions documentation Coding Level of Care Code 74872 INP/OBS DISCH >30 MIN Diagnoses Stroke-like symptoms R29.90 Hemorrhagic stroke I61.9 HTN (hypertension) I10 Urinary tract infection without hematuria, site unspecified N39.0 Urinary tract infection type: site unspecified Hematuria presence: without hematuria Type 2 diabetes mellitus E11.9 Presence of Watchman left atrial appendage closure device Z95.818 Paroxysmal atrial fibrillation I48.0 GERD (gastroesophageal reflux disease) K21.9 FSH (facioscapulohumeral muscular dystrophy) G71.02 COPD (chronic obstructive pulmonary disease) J44.9 SIADH (syndrome of inappropriate ADH production) E22.2 Carcinoid syndrome E34.0 Obstructive sleep apnea G47.33
--- OUTSIDE RECORDS SUMMARY | 2024-07-02 21:20 | External Medical Summary | Continuity of Care Document ---
Author Name Unknown Organization [facility] [address] Address [address] [place], [place] [id number] Care Team Providers Care Director Sales Name Role Phone Becky Tavarez Primary Care Physician [phone] Encounter [facility] [id number] Date(s): 06/29/24 - 06/29/24 [facility] [address] [place], [place] [id number] [place] Discharge Disposition: Home or Self Care Attending Physician: MD Juvenal, Mando Alvarado Referring Physician: DO Culp Ryan M Allergies, Adverse Reactions, Alerts Substance Criticality Severity [...] vaccine, H1N1 11 06/25/09 Recorded 1Result Comment: [facility] 2Result Comment: 2021-11-28: Historical information-source [...] q6h, Disp# 3 each, Refills: 0, Pharmacy: [facility] Start Date: 03/19/24 Status: Ordered aspirin 81 mg oral tablet, chewable Start: 01/31/24 10:24:00 AM EDT, 1 tab, PO, Daily, HOLD UNTIL 06/29/24 Start Date: 01/31/24 Status: Ordered clindamycin 150 mg oral capsule Start: 03/10/24 10:44:00 AM EDT, 4 cap, PO, As indicated, Disp# 12 cap, Refills: 3, one hour before dental and other procedures as directed, Pharmacy: [id number] Start Date: 03/10/24 Status: Ordered clopidogrel 75 [...] Daily, Disp# 180 tab, Refills: 4, Pharmacy: [facility] Start Date: 03/28/24 Stop Date: 06/21/25 Status: Ordered hydrALAZINE 100 mg oral tablet Start: 12/17/23 10:12:00 AM EDT, 1 tab, PO, tid, Disp# 90 tab, Refills: 5, Pharmacy: [id number] Start Date: 12/17/23 Status: Ordered Keppra 500 mg oral tablet Start: 12/13/23 10:58:00 AM EDT, 1 tab, PO, bid, Disp# 180 tab, Refills: 1, [facility] Start Date: 12/13/23 Stop Date: 06/10/24 Status: Ordered losartan 50 mg oral tablet Start: 12/11/23 10:23:00 AM EDT, 1 tab, PO, bid, Disp# 180 tab, Refills: 1, [facility] Start Date: 12/11/23 Status: Ordered metFORMIN 500 mg oral tablet Start: 06/22/24 4:28:00 PM EST, 1 tab, PO, bid Start Date: 06/22/24 Status: Ordered metoclopramide 10 mg oral tablet Start: 08/13/23 1:20:00 PM EST, 1 tab, PO, tid, Disp# 360 tab, Refills: 2, Pharmacy: [facility] Start Date: 08/13/23 Status: Ordered Sodium [...] ssc and brother had bcc. 4Added per Primary Care Physician Review-JW-04/22/[address] OTHER FINDINGS: Atherosclerosis of the abdominal aorta and its branches including peripheral vascular disease but without significant regions of ectasia. 6see outside note 03/14/22 Endocrinology page 6 Procedures [...] findings as above. 2[facility] acute chest disease. [facility] BI-RADS CATEGORY 2: BENING 1. No evidence of malignancy 4[facility] Impression: 1. Cardiomegaly without acute process [...] years. 14left palm cyst 15foot surgery 16sinoplastey Social History Social History Type Response Tobacco Former smoker, Smoke less tobacco use: Former smokeless tobacco user, quit more than 1 year ago. Smoking Status Former Smoker, quit > 1 yr Sex Female Sex Representation Female (finding) Patient Care team information Care Team Personnel Name: Yohannes Howard Christine A Position: Pharmacist Member Role: Pharmacy - Lifetime Name: Yohannes Brody Kimberly Position: Pharmacist BCMA Member Role: Pharmacy - Lifetime Address: [facility] [address] [place] [address] [place] Name: MD Daysi, Becky Millan Position: Physician - Family Med Member Role: Primary Care Provider Address: [address] [place] [address] [place] Name: Yohannes Lundberg Ann Position: Pharmacist Member Role: Pharmacy - Lifetime Name: MD Jayda, Segun Giles Position: Physician - Sports Medicine [place] Member Role: Lifetime Relationship Address: [address] [place] [address] [place] Care Team Related Persons Name: DM MATTA
== END 2024-07-01 11:19 | disposition home health service (06) | DRG 57 ==
LOC: 2S 08:31 → ED 08:31 → 2S 12:20 → SUATTDRO 06-30 20:45

== ENCOUNTER 2024-08-17 14:49 | Inpatient (IN) ==
[~2024-08-17 14:49] MED LIST changes: -BNC40 PO; -DLTCD/240 PO; +KETAMINE HCL INJ 50 MG/ML 10 ML VIAL IV ONE; -METO10TA3 PO; -NSNN50; -NXM/40 PO; -PHEN100C88 PO; -PLV75 PO; -RANI300T PO; +ROCURONIUM BROMIDE 10 MG/ML 5 ML VIAL IV ONE; +fentaNYL citrate PF 100 MCG/2 ML VIAL IV ONE
[2024-08-17] MEDS: dexAMETHasone**PF** 10 MG/ML VIAL IV ONE (15:35)
[2024-08-17] MEDS: diphenhydrAMINE 50 MG/ML VIAL IV STA (15:35)
[2024-08-17 15:39] LABS: Base Excess VBG 1.7 mEq/L; HCO3 VBG 27 mmol/L; Oxygen Saturation VBG < 60.0 %; PCO2 VBG 45 mmHg (38-50); PO2 VBG 28 mmHg; pH VBG 7.39 (7.36-7.41)
--- NOTE | 2024-08-17 15:42 | Emergency Department Note ---
Impression & Plan Acute dyspnea, Pulmonary edema, Acute hypoxemic respiratory failure, Elevated brain natriuretic peptide (BNP) level ED Provider Note HISTORY OF PRESENT ILLNESS: Patient is a 74-year-old female presenting in respiratory distress. provides most of history. Reports the patient woke him up at 5 AM this morning and was complaining of shortness of breath. He reports that her saturations at home were in the 70s. She does not wear any supplemental oxygen at baseline. reports that the patient has had some high pressure readings at home. Patient denies any chest pain. She reports that she feels like she cannot catch her breath. Denies any DVT or PE history. She is on a baby aspirin daily. Denies any abdominal pain, nausea or vomiting. No reported sick contact exposures. ROS: as above PHYSICAL EXAM: Constitutional: Patient appears in moderate distress. HENT: Head: Normocephalic and atraumatic. Eyes: EOMI, PERRL Mouth/Throat: Mucous membranes moist. Neck: Trachea midline. Neck supple. Cardiovascular: Paced rhythm. No murmurs, rubs or gallops. Intact distal pulses. Pulmonary/Chest: Patient is tachypneic and bobbing her head while she breathes. She is on 5 L nasal cannula saturating at 95%. She is tachypneic. Lungs are clear bilaterally. Abdominal: Abdomen soft, no tenderness, rebound or guarding. Musculoskeletal: No edema, tenderness or deformity noted. Skin: Warm and dry. No rash, erythema, pallor or cyanosis Psychiatric: Appropriate mood and affect for situation. Neurological: Alert and keenly responsive. CN II-XII grossly intact, moving all extremities equally and fully. MDM: - Vitals signs showed hypertension, tachypnea and hypoxia - History obtained via patient and patient's . History as above. - Chronic conditions affecting care: CVA; carcinoid syndrome; HTN; SIADH; COPD; atrial fibrillation (S/p pacemaker); osteoporosis - Differential diagnoses include, but are not limited to: Congestive heart failure; acute coronary syndrome; COPD/asthma exacerbation; pulmonary edema; pulmonary embolism; pneumonia; pneumothorax; viral syndrome - Order placed for continuous cardiac monitoring. At this time, monitor showed rate of 90 bpm with paced rhythm rhythm, per my interpretation. - External medical records reviewed. Pulmonary office visit dated 08/14/2024 was reviewed. Patient was seen in the clinic for follow-up for her COPD. - EKG interpreted by myself showed ventricular paced rhythm. Rate 90 bpm. - Laboratory workup interpreted by myself showed normal WBC; slightly elevated INR (1.2); hyponatremia (Na 130); normal troponin; elevated BNP (676) - Viral respiratory panel negative - VBG normal - CXR showed pulmonary vascular congestion, per my interpretation. Radiology notes concern for potential pneumonia in the right lung base. - Patient given 10 mg IV dexamethasone and 50 mg IV benadryl for pretreatment for her CT scan, given her contrast dye allergy. - CT PE negative for pulmonary embolism. Noted to have multifocal patchy areas of groundglass and regions of nodular opacity consistent with atypical infectious etiology and also superimposed pulmonary edema. Noted to have a small pericardial effusion. - Discussion was had with telehealth case manager about patient's case and need for admission - Hospitalist, Dr. Sanchez, consulted for admission - [facility]. I have personally spent 34 minutes of critical care time in the direct management of this patient. This includes bedside care, interpretation of diagnostic studies, and testing, discussion with consultants, patient, and family members, and other required patient management activities. This 34 minutes is in excess of all separately billable procedures. ASSESSMENT AND PLAN: Diagnosis: Acute dyspnea; acute hypoxemia; pulmonary edema; elevated BNP Plan: Admit Past Med/Surg History Problem List (Updated 08/17/24 @ 17:19 by Neelam Adam MD) Elevated brain natriuretic peptide (BNP) level (Acute) Acute hypoxemic respiratory failure (Acute) Pulmonary edema (Acute) Acute dyspnea (Acute) Tachypnea H/O: stroke with residual effects Hypoxia Type 2 diabetes mellitus Intraparenchymal hemorrhage of brain (Acute) Constipation Clavicle fracture (Acute) Closed fracture of superior pubic ramus (Acute) Fracture of inferior pubic ramus (Acute) Fall Closed fracture of distal clavicle Fracture of superior pubic ramus Osteoporosis Presence of Watchman left atrial appendage closure device Paroxysmal atrial fibrillation Effusion, pericardium (Acute) Atrial fibrillation with rapid ventricular response (Acute) CVA (cerebral vascular accident) GERD (gastroesophageal reflux disease) Hyperlipidemia Ischemic cerebrovascular accident (CVA) FSH (facioscapulohumeral muscular dystrophy) COPD (chronic obstructive pulmonary disease) SIADH (syndrome of inappropriate ADH production) HTN (hypertension) Prediabetes (Chronic) Dysphagia (Acute) Liver lesion, right lobe (Acute) LVH (left ventricular hypertrophy) Diastolic dysfunction Tremor Carcinoid syndrome Hypoglycemia Obstructive sleep apnea Medical History (Updated 08/17/24 @ 17:19 by Neelam Adam MD) Subarachnoid hemorrhage Acute intracerebral hemorrhage Shoulder pain, right Former smoker IBS (irritable bowel syndrome) Vitamin D deficiency History of small bowel obstruction (~2013) History of colon polyps History of skin cancer Antibiotic-induced yeast infection PRONE TO YEAST INFECTIONS WITH ANTIBIOTIC USE Seasonal allergies Lung nodules MONITORS Adrenal adenoma Carcinoid tumor of colon History of claustrophobia MILD Nasal cavity polyp Mild obstructive sleep apnea CPAP Chronic rhinitis Langerhans cell histiocytosis ? Gastroparesis DENIES GERD (gastroesophageal reflux disease) Surgical History History of surgery REMOTE HX FOR REMOVAL OF SKIN CA History of Mohs micrographic surgery for skin cancer History of lung biopsy H/O hysterectomy with oophorectomy S/P thoracotomy DENIES , REPORTS HX LUNG BIOPSY Hx of exploratory laparotomy HX BOWEL OBSTRUCTION S/P appendectomy H/O: hysterectomy TOTAL Family History Father Myocardial infarction Hypertension Mother Congestive heart failure Hypertension Grandfather (Paternal) Myocardial infarction Grandfather (Maternal) Myocardial infarction Grandmother Colorectal cancer Other Atrial fibrillation Family history of diabetes mellitus Social History Smoking Status: Former smoker Tobacco Type: Cigarettes Age Started Using Tobacco: 16; Age Quit Using Tobacco: 63; packs per day: 0.75; Second Hand Exposure: No; Do You Dip or Chew Tobacco: No; Hx Alcohol Use: Yes Alcohol type: wine Hx Substance Use: No Preferred Language: Pashto Communication Ability: Effective Vp Project Required: No Beliefs That Will Affect Care: None marital status: Current Living Situation: Spouse current occupational status: retired Feels Safe at Home: Yes Seatbelt Use: always Sunscreen Use: Yes Assistive Devices: Walker Allergies Allergies Allergy/AdvReac Type Severity Reaction Status Date / Time Iodinated Contrast Media Allergy Intermediate Hives Verified 08/12/24 16:23 mold Allergy Intermediate SNEEZING/CO Verified 08/12/24 16:23 NGESTION moxifloxacin [From Avelox] Allergy Intermediate ITCHING/YEAST Verified 08/12/24 16:23 INFECTION Tetracyclines Allergy Intermediate ? ITCH ALL Verified 08/12/24 16:23 OVER, PT NOT SURE adhesive Allergy Mild ITCHY RASH Verified 08/12/24 16:23 Penicillins Allergy Rash Verified 08/12/24 16:23 Sulfa (Sulfonamide Allergy Swelling Verified 08/12/24 16:23 Antibiotics) of Lip/Tongue/Throat amlodipine AdvReac Intermediate FATIGUE/CON Verified 08/12/24 16:23 STIPATION cefuroxime AdvReac Intermediate CAUSED C. Verified 08/12/24 16:23 DIFF INFECTION Home Meds Home Medications Medication Instructions Recorded Confirmed cetirizine 10 mg capsule (Zyrtec) 10 mg PO DAILY PRN Allergy Symptoms 09/10/19 08/12/24 fluticasone propionate 50 2 spray intranasal DAILY PRN 04/13/22 08/12/24 mcg/actuation nasal Allergy Symptoms spray,suspension (Flonase Allergy Relief) aspirin 81 mg chewable tablet 81 mg PO DAILY 02/07/24 08/12/24 levetiracetam 500 mg tablet 500 mg PO BID 02/07/24 08/17/24 (Keppra) multivitamin 1 tab PO DAILY 02/07/24 08/17/24 folic acid 1 mg tablet 1 mg PO BID 04/26/24 08/12/24 cholecalciferol (vitamin D3) 50 50 mcg PO DAILY 06/29/24 08/12/24 mcg (2,000 unit) capsule metformin 500 mg tablet 200 mg PO BID 08/12/24 08/17/24 olmesartan medoxomil 40 mg PO DAILY 08/12/24 Previous Rx's Medication Instructions Recorded albuterol sulfate 90 mcg/actuation 2 puff inhalation Q4H PRN 10/25/22 aerosol inhaler (Ventolin HFA) Shortness Of Breath #3 Inhalers fluticasone fur. 100 mcg-umeclid 1 inh inhalation DAILY #3 Inhalers 12/25/23 62.5 mcg-vilant 25 mcg inhalat.powder (Trelegy Ellipta) hydralazine 50 mg tablet 100 mg (2 x 50 mg) PO TID #90 tabs 05/21/24 magnesium oxide 400 mg (241.3 mg 400 mg PO QAM #0 tabs 07/01/24 magnesium) tablet metoprolol succinate 50 mg 50 mg PO DAILY #30 tabs 07/01/24 tablet,extended release 24 hr (Toprol XL) prednisone 50 mg tablet 50 mg PO DAILY #3 tabs 08/14/24 Results & Data (ED) Vital Signs Vital Signs - 24 hr 08/17/24 15:07 08/17/24 15:12 08/17/24 15:17 Temperature 36.4 C L Temperature Source Temporal Artery Scan Pulse Rate 90 Respiratory Rate 34 H Respiratory Effort / Characteristics Short of Breath Respiratory Depth Shallow Blood Pressure 170/96 H Blood Pressure Mean 120 Pulse Oximetry 78 L 78 L 95 Oxygen Delivery Method Room Air Room Air Nasal Cannula Oxygen Flow Rate 5 Sepsis Recent Fever Within 48 Hours No Sepsis New/Unexplained Change in Mental Status No Sepsis Action Taken by Nursing No Action Required Oxygen Flow Rate - Titration 4 Pulse Oximetry Post Tiitration 88 L 08/17/24 16:00 Temperature Temperature Source Pulse Rate 90 Respiratory Rate Respiratory Effort / Characteristics Respiratory Depth Blood Pressure Blood Pressure Mean Pulse Oximetry Oxygen Delivery Method Oxygen Flow Rate Sepsis Recent Fever Within 48 Hours Sepsis New/Unexplained Change in Mental Status Sepsis Action Taken by Nursing Oxygen Flow Rate - Titration Pulse Oximetry Post Tiitration Laboratory Data 08/17/24 15:29 08/17/24 15:29 Lab Results 08/17/24 Range/Units 15:29 WBC 8.46 (4.8-10.8) K/ul RBC 4.12 L (4.20-5.40) M/uL Hgb 10.9 L (12.0-16.0) g/dl Hct 33.7 L (37.0-47.0) % MCV 81.8 (80.0-100.0) fL MCH 26.5 (25.0-34.0) pg MCHC 32.3 (32.0-36.0) g/dL RDW Std Deviation 43.3 (36.4-46.3) fL RDW Coeff of Lion 14.6 H (11.5-14.5) % Plt Count 389 (130-400) K/uL MPV 9.4 (9.4-12.4) fL Immature Gran % (Auto) 0.8 % Neut % (Auto) 83.8 % Lymph % (Auto) 10.6 % Mayes % (Auto) 4.5 % Eos % (Auto) 0.2 % Baso % (Auto) 0.1 % Neut # (Auto) 7.08 H (1.40-6.50) K/uL Lymph # (Auto) 0.90 L (1.20-3.40) K/uL Mayes # (Auto) 0.38 (0.11-0.59) K/uL Eos # (Auto) 0.02 (0.00-0.50) K/uL Baso # (Auto) 0.01 (0.00-0.20) K/uL Immature Gran # (Auto) 0.07 (0.01-0.20) K/uL PT 12.4 H (9.0-12.0) Seconds INR 1.2 H (0.9-1.1) VBG pH 7.39 (7.36-7.41) VBG pCO2 45 (38-50) mmHg VBG pO2 28 mmHg VBG HCO3 27 mmol/L VBG O2 Saturation < 60.0 % VBG Base Excess 1.7 mEq/L Sodium 130 L (136-145) mmol/L Potassium 4.0 (3.5-5.1) mmol/L Chloride 96 L (98-107) mmol/L Carbon Dioxide 27 (21-32) mmol/L Anion Gap 7 (3-11) BUN 18 (6-23) mg/dl Creatinine 0.77 (0.6-1.2) mg/dl Est Cr Clr Drug Dosing 55.4 ml/min eGFR 80.90 BUN/Creatinine Ratio 23.4 H (10-20) Glucose 110 H (70-99(Fasting)) mg/dl Lactate 1.5 (0.4-2.0) mmol/L Calcium 10.1 (8.6-10.3) mg/dl Magnesium 1.9 (1.7-2.4) mg/dl Total Bilirubin 0.6 (0.2-1.0) mg/dl AST 31 (13-39) U/L ALT 29 (7-52) U/L Alkaline Phosphatase 57 (34-104) U/L Troponin I High Sens 14.0 (0-14) pg/ml B-Natriuretic Peptide 676 H (0-100) pg/ml Total Protein 7.7 (6.0-8.3) gm/dl Albumin 3.9 (3.4-5.0) gm/dl Globulin 3.8 (2.5-4.0) gm/dl Albumin/Globulin Ratio 1.0 (0.9-2) Adenovirus (PCR) Not Detected (NotDetected) B. pertussis DNA (PCR) Not Detected (NotDetected) B.parapertussis DNA PCR Not Detected (NotDetected) C. pneumoniae DNA (PCR) Not Detected (NotDetected) Coronavirus OC43 (PCR) Not Detected (NotDetected) Coronavirus HKU1 (PCR) Not Detected (NotDetected) Coronavirus 229E (PCR) Not Detected (NotDetected) SARS-CoV-2 (PCR) Not Detected (NotDetected) Coronavirus NL63 (PCR) Not Detected (NotDetected) Human Metapneumovir PCR Not Detected (NotDetected) Influenza Type A (PCR) Not Detected (NotDetected) Influenza Type B (PCR) Not Detected (NotDetected) M. pneumoniae (PCR) Not Detected (NotDetected) Parainfluenza 1 (PCR) Not Detected (NotDetected) Parainfluenza 2 (PCR) Not Detected (NotDetected) Parainfluenza 3 (PCR) Not Detected (NotDetected) Parainfluenza 4 (PCR) Not Detected (NotDetected) RSV (PCR) Not Detected (NotDetected) Entero/Rhino (PCR) Not Detected (NotDetected) Administered Medications Discontinued Medications Dexamethasone Sodium Phosphate (DexamethasonePf 10 Mg/Ml Vial) 10 mg IV NOW ONE Stop: 08/17/24 15:18 Last Admin: 08/17/24 15:35 Dose: 10 mg Documented By: MCKENNA Diphenhydramine HCl (Diphenhydramine 50 Mg/Ml Vial) 50 mg IV NOW STA Stop: 08/17/24 15:18 Last Admin: 08/17/24 15:35 Dose: 50 mg Documented By: MCKENNA Ioversol (Optiray 320 125ml) 119 ml IV ONCE ONE Stop: 08/17/24 16:12 Last Admin: 08/17/24 16:12 Dose: 119 ml Documented By: EDK Imaging Data Radiologist's Impression: Chest CTA 08/17/24 15:17 CT pulmonary angiogram with IV contrast History: Shortness of breath COMPARISON: 08/15/2024 TECHNIQUE: CT angiography of the chest was performed without IV contrast followed by IV contrast, including 3D post processing CTA image reconstruction. Dose reduction techniques were achieved by using automatic exposure control and/or adjustment of mA and/or kV according to patient size and/or use of iterative reconstruction technique. FINDINGS: Diagnostic quality: Adequate There is no evidence for pulmonary embolism. The heart is markedly enlarged. There is a left chest wall dual-lead AICD. Left atrial appendage Watchman device. Heavy coronary calcifications. There is a small pericardial effusion. There are no abnormally enlarged hilar or mediastinal lymph nodes. The central tracheobronchial tree is clear. Severe emphysema. Diffuse, multifocal areas of groundglass density, and mild scattered patchy nodular centrilobular densities in the periphery of both lung bases. Confluent atelectasis in the lingula in the anterior basilar left lower lobe, are likely postobstructive. There is no pleural effusion. Limited visualized upper abdomen. No destructive osseous changes are seen. IMPRESSION: No evidence for pulmonary embolism. Multifocal patchy areas of groundglass and a few regions of nodular opacity, most consistent with an atypical infectious process. The findings are significantly increased from 08/15/2024. There is also mild superimposed interstitial pulmonary edema. Note that the heart is significantly enlarged. There is a small pericardial effusion. Electronically signed by Rubén Langley 08-17-2024 4:27 PM Chest X-Ray 08/17/24 15:17 EXAM: Radiograph of the Chest 1 View INDICATION: Dyspnea. TECHNIQUE: Frontal view of the chest. COMPARISON: 06/29/2024 FINDINGS: Lungs and pleural spaces: There is underlying chronic interstitial scarring. There is acute superimposed increased interstitial density and groundglass opacity in the right base. Chronic airway thickening left base. No pleural effusion or pneumothorax. Heart: Stable enlargement and pacing device. Mediastinum: Normal contour. Bones/joints: No fracture, erosion or dislocation. Soft tissues: No abnormality noted. No radiopaque foreign body noted. Tubes, lines and devices: Stable Watchman device. Upper abdomen: No abnormality noted. IMPRESSION: 1. Groundglass infiltrate right base concerning for pneumonia which could be infectious or related to aspiration. Correlate clinically. 2. Acute on chronic interstitial changes. Consider pulmonary edema and infectious pneumonitis. ACT 112: Negative or not required by law. Electronically signed by Britany Joseph 08-17-2024 3:44 PM Discharge Plan Visit Data Chief Complaint: Hypertension Stated Complaint: HYPERTENSION, OX LOW, RECENT STROKE ED Provider: Neelam Adam Discharge Problem: Acute dyspnea, Pulmonary edema, Acute hypoxemic respiratory failure, Elevated brain natriuretic peptide (BNP) level Forms Stand Alone Forms: [employer] Prescriptions Prescriptions: No Action Trelegy Ellipta 100-62.5-25 mcg blister with device 1 inh inhalation DAILY Qty: 3 3RF prednisone 50 mg tablet 50 mg PO DAILY Qty: 3 0RF Rx Instructions: Take [address] chest, then [address] chest and [address] chest fluticasone propionate [Flonase Allergy Relief] 50 mcg/actuation spray,suspension 2 spray intranasal DAILY PRN (Reason: Allergy Symptoms) Rx Instructions: administer into each nostril Zyrtec 10 mg capsule 10 mg PO DAILY PRN (Reason: Allergy Symptoms) albuterol sulfate [Ventolin HFA] 90 mcg/actuation HFA aerosol inhaler 2 puff inhalation Q4H PRN (Reason: Shortness Of Breath) Qty: 3 3RF multivitamin Tablet 1 tab PO DAILY levetiracetam [Keppra] 500 mg Tablet 500 mg PO BID aspirin 81 mg Tablet,Chewable 81 mg PO DAILY folic acid 1 mg tablet 1 mg PO BID hydralazine 50 mg Tablet 100 mg PO TID Qty: 90 0RF cholecalciferol (vitamin D3) 50 mcg (2,000 unit) Capsule 50 mcg PO DAILY metoprolol succinate [Toprol XL] 50 mg tablet extended release 24 hr 50 mg PO DAILY Qty: 30 0RF magnesium oxide 400 mg (241.3 mg magnesium) Tablet 400 mg PO QAM Qty: 0 0RF metformin 500 mg tablet 200 mg PO BID olmesartan 40 mg tablet 40 mg PO DAILY metoclopramide HCl 10 mg tablet Referrals Referrals: Becky Tavarez MD [Primary Care Provider] -
[2024-08-17 15:45] LABS: Basophils # (auto) 0.01 K/uL (0.00-0.20); Basophils % (auto) 0.1 %; Eosinophils # (auto) 0.02 K/uL (0.00-0.50); Eosinophils % (auto) 0.2 %; Hematocrit (blood only) 33.7 % (37.0-47.0); Hemoglobin 10.9 g/dl (12.0-16.0); Immature Granulocytes # (auto) 0.07 K/uL (0.01-0.20); Immature Granulocytes % (auto) 0.8 %; Lymphocytes % (auto) 10.6 %; Mean Corpuscular Hemoglobin 26.5 pg (25.0-34.0); Mean Corpuscular Hgb Conc 32.3 g/dL (32.0-36.0); Mean Corpuscular Volume 81.8 fL (80.0-100.0); Mean Platelet Volume 9.4 fL (9.4-12.4); Monocytes # (auto) 0.38 K/uL (0.11-0.59); Monocytes % (auto) 4.5 %; Neutrophils # (auto) 7.08 K/uL (1.40-6.50); Neutrophils % (auto) 83.8 %; Platelet Count 389 K/uL (130-400); RDW Coefficient of Variation 14.6 % (11.5-14.5); RDW Standard Deviation 43.3 fL (36.4-46.3); Red Blood Count 4.12 M/uL (4.20-5.40); White Blood Count 8.46 K/ul (4.8-10.8)
--- NOTE | 2024-08-17 15:45 | XRay Report ---
EXAM: Radiograph of the Chest 1 View INDICATION: Dyspnea. TECHNIQUE: Frontal view of the chest. COMPARISON: 06/29/2024 FINDINGS: Lungs and pleural spaces: There is underlying chronic interstitial scarring. There is acute superimposed increased interstitial density and groundglass opacity in the right base. Chronic airway thickening left base. No pleural effusion or pneumothorax. Heart: Stable enlargement and pacing device. Mediastinum: Normal contour. Bones/joints: No fracture, erosion or dislocation. Soft tissues: No abnormality noted. No radiopaque foreign body noted. Tubes, lines and devices: Stable Watchman device. Upper abdomen: No abnormality noted. IMPRESSION: 1. Groundglass infiltrate right base concerning for pneumonia which could be infectious or related to aspiration. Correlate clinically. 2. Acute on chronic interstitial changes. Consider pulmonary edema and infectious pneumonitis. ACT 112: Negative or not required by law. Electronically signed by Britany Joseph 08-17-2024 3:44 PM
[2024-08-17 16:01] LABS: Albumin Level 3.9 gm/dl (3.4-5.0); BUN Creatinine Ratio 23.4 (10-20); Bilirubin,Total 0.6 mg/dl (0.2-1.0); Calcium 10.1 mg/dl (8.6-10.3); Creatinine Clr Calc Pharmacy 55.4 ml/min; Globulin 3.8 gm/dl (2.5-4.0); Magnesium 1.9 mg/dl (1.7-2.4); Total Protein 7.7 gm/dl (6.0-8.3)
[2024-08-17 16:09] LABS: INR 1.2 (0.9-1.1); Prothrombin Time 12.4 Seconds (9.0-12.0)
[2024-08-17] MEDS: OPTIRAY 320 125ml IV ONE (16:12)
--- NOTE | 2024-08-17 16:27 | CT Scan Report ---
CT pulmonary angiogram with IV contrast History: Shortness of breath COMPARISON: 08/15/2024 TECHNIQUE: CT angiography of the chest was performed without IV contrast followed by IV contrast, including 3D post processing CTA image reconstruction. Dose reduction techniques were achieved by using automatic exposure control and/or adjustment of mA and/or kV according to patient size and/or use of iterative reconstruction technique. FINDINGS: Diagnostic quality: Adequate There is no evidence for pulmonary embolism. The heart is markedly enlarged. There is a left chest wall dual-lead AICD. Left atrial appendage Watchman device. Heavy coronary calcifications. There is a small pericardial effusion. There are no abnormally enlarged hilar or mediastinal lymph nodes. The central tracheobronchial tree is clear. Severe emphysema. Diffuse, multifocal areas of groundglass density, and mild scattered patchy nodular centrilobular densities in the periphery of both lung bases. Confluent atelectasis in the lingula in the anterior basilar left lower lobe, are likely postobstructive. There is no pleural effusion. Limited visualized upper abdomen. No destructive osseous changes are seen. IMPRESSION: No evidence for pulmonary embolism. Multifocal patchy areas of groundglass and a few regions of nodular opacity, most consistent with an atypical infectious process. The findings are significantly increased from 08/15/2024. There is also mild superimposed interstitial pulmonary edema. Note that the heart is significantly enlarged. There is a small pericardial effusion. Electronically signed by Rubén Langley 08-17-2024 4:27 PM
[2024-08-17 16:31] LABS: Adenovirus PCR Not Detected (NotDetected); Bordetella parapertussis PCR Not Detected (NotDetected); Bordetella pertussis PCR Not Detected (NotDetected); Chlamydia pneumoniae PCR Not Detected (NotDetected); Coronavirus 229E PCR Not Detected (NotDetected); Coronavirus CoV-2 (COVID19)PCR Not Detected (NotDetected); Coronavirus HKU1 PCR Not Detected (NotDetected); Coronavirus NL63 PCR Not Detected (NotDetected); Coronavirus OC43PCR Not Detected (NotDetected); Human Metapneumovirus PCR Not Detected (NotDetected); Influenza A PCR Not Detected (NotDetected); Influenza B PCR Not Detected (NotDetected); Mycoplasma pneumoniae PCR Not Detected (NotDetected); Parainfluenza Virus 1 PCR Not Detected (NotDetected); Parainfluenza Virus 2 PCR Not Detected (NotDetected); Parainfluenza Virus 3 PCR Not Detected (NotDetected); Parainfluenza Virus 4 PCR Not Detected (NotDetected); Respiratory Syncytial VirusPCR Not Detected (NotDetected); Rhinovirus/Enterovirus PCR Not Detected (NotDetected)
--- NOTE | 2024-08-17 17:20 | History & Physical Report ---
Date of Service August 17, 2024 Assessment & Plan (1) Acute hypoxemic respiratory failure: Plan: Suspected secondary to HF as below with increasing BNP and CT with possible pulmonary edema although no leg edema and CT non conclusive, will diurese and reassess Procalcitonin negative therefore antibiotics deferred on admission Biofire PCR negative (2) Acute heart failure with preserved ejection fraction: Plan: Not clear why she has ended up with increasing BNP other than she was on salt tabs for SIADH which were discontinued 2 weeks ago. Perhaps she continued to gain weight after this vs. uncontrolled BP. No significant leg edema to suggest right sided heart failure Recent TTE in July, will get limited TTE to assess for pericardial effusion but no recent chest pain event to suggest need to repeat UA ordered to assess for proteinuria No prior liver problems and LFTs normal Start Lasix 40mg IV daily Strict I&Os Daily weights Plan Chronic medical conditions: HTN - continue current medications with addition of Lasix as above pAfib - presence of Watchman SIADH - monitor Na for improvement with Lasix JG - CPAP HS VTE Prophylaxis - SCDs, deferred chemical due to recurrent hemorrhagic strokes Diet - low Na Disposition - admit to PCU Admission and Anticipated Discharge Date Admission Date: August 17, 2024 History of Present Illness Chief Complaint: Shortness of breath Primary Care Provider: Becky Tavarez MD Danielle Pulliam is a 74 year old female presents to the ER with shortness of breath and hypertension. provides history at bedside due to patient expressive aphasia from prior stroke. Her notes her blood pressure was well controlled up until a couple of days ago. No recent change in medications. BP 190/96 this morning. She has been short of breath since her previous stroke. She saw pulmonology 3 days ago for this and under went CT chest. However since then her breathing has become much worse and today her O2 sats were dropping to 74% on room air. She has oxygen prescribed but only has been needing this intermittently throughout the day and her O2 sats have never dropped this low on room air. She denies any choking or coughing after eating. No chest pain, nasal congestion, cough, sinus pain. No fever or chills. No gastrointestinal or urinary symptoms. Only recent medication change has been to come off her sodium pill which she was taking for SIADH to help with her blood pressure which she stopped around 3 weeks ago. No prior history of heart failure. Allergies Allergy/AdvReac Type Severity Reaction Status Date / Time Iodinated Contrast Media Allergy Intermediate Hives Verified 08/12/24 16:23 mold Allergy Intermediate SNEEZING/CO Verified 08/12/24 16:23 NGESTION moxifloxacin [From Avelox] Allergy Intermediate ITCHING/YEAST Verified 08/12/24 16:23 INFECTION Tetracyclines Allergy Intermediate ? ITCH ALL Verified 08/12/24 16:23 OVER, PT NOT SURE adhesive Allergy Mild ITCHY RASH Verified 08/12/24 16:23 Penicillins Allergy Rash Verified 08/12/24 16:23 Sulfa (Sulfonamide Allergy Swelling Verified 08/12/24 16:23 Antibiotics) of Lip/Tongue/Throat amlodipine AdvReac Intermediate FATIGUE/CON Verified 08/12/24 16:23 STIPATION cefuroxime AdvReac Intermediate CAUSED C. Verified 08/12/24 16:23 DIFF INFECTION Home Medications Medication Instructions Recorded Confirmed Type fluticasone propionate 50 2 spray intranasal DAILY PRN 04/13/22 08/17/24 History mcg/actuation nasal Allergy Symptoms spray,suspension (Flonase Allergy Relief) albuterol sulfate 90 mcg/actuation 2 puff inhalation Q4H PRN 10/25/22 08/17/24 Rx aerosol inhaler (Ventolin HFA) Shortness Of Breath #3 Inhalers fluticasone fur. 100 mcg-umeclid 1 inh inhalation DAILY #3 Inhalers 12/25/23 08/17/24 Rx 62.5 mcg-vilant 25 mcg inhalat.powder (Trelegy Ellipta) aspirin 81 mg chewable tablet 81 mg PO DAILY 02/07/24 08/17/24 History levetiracetam 500 mg tablet 500 mg PO BID 02/07/24 08/17/24 History (Keppra) multivitamin 1 tab PO DAILY 02/07/24 08/17/24 History folic acid 1 mg tablet 1 mg PO BID 04/26/24 08/17/24 History hydralazine 50 mg tablet 100 mg (2 x 50 mg) PO TID #90 tabs 05/21/24 08/17/24 Rx cholecalciferol (vitamin D3) 50 50 mcg PO DAILY 06/29/24 08/17/24 History mcg (2,000 unit) capsule magnesium oxide 400 mg (241.3 mg 400 mg PO QAM #0 tabs 07/01/24 08/17/24 Rx magnesium) tablet metoprolol succinate 50 mg 50 mg PO DAILY #30 tabs 07/01/24 08/17/24 Rx tablet,extended release 24 hr (Toprol XL) metformin 500 mg tablet 200 mg PO BID 08/12/24 08/17/24 History prednisone 50 mg tablet 50 mg PO DAILY #3 tabs 08/14/24 08/17/24 Rx olmesartan 40 mg tablet 40 mg PO DAILY 08/17/24 08/17/24 History Past Med/Surg History Problem List (Updated 08/17/24 @ 17:54 by Jens Sanchez MD) Acute heart failure with preserved ejection fraction Elevated brain natriuretic peptide (BNP) level (Acute) Acute hypoxemic respiratory failure (Acute) Pulmonary edema (Acute) Acute dyspnea (Acute) Tachypnea H/O: stroke with residual effects Hypoxia Type 2 diabetes mellitus Intraparenchymal hemorrhage of brain (Acute) Constipation Clavicle fracture (Acute) Closed fracture of superior pubic ramus (Acute) Fracture of inferior pubic ramus (Acute) Fall Closed fracture of distal clavicle Fracture of superior pubic ramus Osteoporosis Presence of Watchman left atrial appendage closure device Paroxysmal atrial fibrillation Effusion, pericardium (Acute) Atrial fibrillation with rapid ventricular response (Acute) CVA (cerebral vascular accident) GERD (gastroesophageal reflux disease) Hyperlipidemia Ischemic cerebrovascular accident (CVA) FSH (facioscapulohumeral muscular dystrophy) COPD (chronic obstructive pulmonary disease) SIADH (syndrome of inappropriate ADH production) HTN (hypertension) Prediabetes (Chronic) Dysphagia (Acute) Liver lesion, right lobe (Acute) LVH (left ventricular hypertrophy) Diastolic dysfunction Tremor Carcinoid syndrome Hypoglycemia Obstructive sleep apnea Medical History (Updated 08/17/24 @ 17:54 by Jens Sanchez MD) Subarachnoid hemorrhage Acute intracerebral hemorrhage Shoulder pain, right Former smoker IBS (irritable bowel syndrome) Vitamin D deficiency History of small bowel obstruction (~2013) History of colon polyps History of skin cancer Antibiotic-induced yeast infection PRONE TO YEAST INFECTIONS WITH ANTIBIOTIC USE Seasonal allergies Lung nodules MONITORS Adrenal adenoma Carcinoid tumor of colon History of claustrophobia MILD Nasal cavity polyp Mild obstructive sleep apnea CPAP Chronic rhinitis Langerhans cell histiocytosis ? Gastroparesis DENIES GERD (gastroesophageal reflux disease) Surgical History History of surgery REMOTE HX FOR REMOVAL OF SKIN CA History of Mohs micrographic surgery for skin cancer History of lung biopsy H/O hysterectomy with oophorectomy S/P thoracotomy DENIES , REPORTS HX LUNG BIOPSY Hx of exploratory laparotomy HX BOWEL OBSTRUCTION S/P appendectomy H/O: hysterectomy TOTAL Family History Father Myocardial infarction Hypertension Mother Congestive heart failure Hypertension Grandfather (Paternal) Myocardial infarction Grandfather (Maternal) Myocardial infarction Grandmother Colorectal cancer Other Atrial fibrillation Family history of diabetes mellitus Social History Smoking Status: Never smoker Tobacco Type: Cigarettes Age Started Using Tobacco: 16; Age Quit Using Tobacco: 63; packs per day: 0.75; Second Hand Exposure: No; Do You Dip or Chew Tobacco: No; Hx Alcohol Use: Yes Alcohol type: wine Hx Substance Use: No Preferred Language: Croatian Communication Ability: Effective Superintendent Radio Communications Required: No Beliefs That Will Affect Care: None marital status: Current Living Situation: Spouse current occupational status: retired Other Information That Helps Us Care for You: No Feels Safe at Home: Yes Safety Concerns: Feels Safe At This Time Seatbelt Use: always Sunscreen Use: Yes Assistive Devices: Cane, CPAP, Glasses, Oxygen - at Night, Oxygen - Continuous and Walker Assistive Devices Comment: oxygen PRN Physical Exam Constitutional: WD/WN, vitals as above Respiratory: + labored breathing and + uses accessory muscles Auscultation: + crackles (bibasal) and + wheezes (mild end expiratory anteriorly) Cardiovascular: RRR, no murmur, no edema Gastrointestinal (Abdomen): normal bowel sounds, soft, nontender, no hepatosplenomegaly Skin: no rashes, warm and dry Neurologic: awake; not confused Speech / Cognition: + expressive aphasia Psychiatric: Orientation: alert Results & Data Results & Data Vital Signs (Past 12 Hours) Vital Signs Temp Pulse Resp BP Pulse Ox O2 Del Method O2 Flow Rate 08/17/24 16:00 90 08/17/24 15:17 95 Nasal Cannula 5 08/17/24 15:12 78 L Room Air 08/17/24 15:07 36.4 C L 90 34 H 170/96 H 78 L Room Air Laboratory Results Abnormal lab results 08/17/24 Range/Units 15:29 RBC 4.12 L (4.20-5.40) M/uL Hgb 10.9 L (12.0-16.0) g/dl Hct 33.7 L (37.0-47.0) % RDW Coeff of Lion 14.6 H (11.5-14.5) % Neut # (Auto) 7.08 H (1.40-6.50) K/uL Lymph # (Auto) 0.90 L (1.20-3.40) K/uL PT 12.4 H (9.0-12.0) Seconds INR 1.2 H (0.9-1.1) Sodium 130 L (136-145) mmol/L Chloride 96 L (98-107) mmol/L BUN/Creatinine Ratio 23.4 H (10-20) Glucose 110 H (70-99(Fasting)) mg/dl B-Natriuretic Peptide 676 H (0-100) pg/ml Diagnostic Findings Radiograph of the Chest 1 View INDICATION: Dyspnea. TECHNIQUE: Frontal view of the chest. COMPARISON: 06/29/2024 FINDINGS: Lungs and pleural spaces: There is underlying chronic interstitial scarring. There is acute superimposed increased interstitial density and groundglass opacity in the right base. Chronic airway thickening left base. No pleural effusion or pneumothorax. Heart: Stable enlargement and pacing device. Mediastinum: Normal contour. Bones/joints: No fracture, erosion or dislocation. Soft tissues: No abnormality noted. No radiopaque foreign body noted. Tubes, lines and devices: Stable Watchman device. Upper abdomen: No abnormality noted. IMPRESSION: 1. Groundglass infiltrate right base concerning for pneumonia which could be infectious or related to aspiration. Correlate clinically. 2. Acute on chronic interstitial changes. Consider pulmonary edema and infectious pneumonitis. CT pulmonary angiogram with IV contrast History: Shortness of breath COMPARISON: 08/15/2024 TECHNIQUE: CT angiography of the chest was performed without IV contrast followed by IV contrast, including 3D post processing CTA image reconstruction. Dose reduction techniques were achieved by using automatic exposure control and/or adjustment of mA and/or kV according to patient size and/or use of iterative reconstruction technique. FINDINGS: Diagnostic quality: Adequate There is no evidence for pulmonary embolism. The heart is markedly enlarged. There is a left chest wall dual-lead AICD. Left atrial appendage Watchman device. Heavy coronary calcifications. There is a small pericardial effusion. There are no abnormally enlarged hilar or mediastinal lymph nodes. The central tracheobronchial tree is clear. Severe emphysema. Diffuse, multifocal areas of groundglass density, and mild scattered patchy nodular centrilobular densities in the periphery of both lung bases. Confluent atelectasis in the lingula in the anterior basilar left lower lobe, are likely postobstructive. There is no pleural effusion. Limited visualized upper abdomen. No destructive osseous changes are seen. IMPRESSION: No evidence for pulmonary embolism. Medications Administered ER Medications Given: Dexamethasone 10mg IV Diphendydramine 50mg IV ECG Rate (beats per minute): 90 Rhythm: other (ventricular paced rhythm) Findings: no acute ischemic change Comparison ECG Date: from (June 29, 2024) Change: no significant change Code Status & VTE Plan Code Status Full VTE Prophylaxis Plan VTE Prophylaxis will be ordered: Yes PG Care Time/CCT Total # of Minutes Spent Total Time Spent with Patient: Total time spent is greater than 50% in coordination of care (as documented) at patient's floor/unit and/or counseling patient: Coding Level of Care Code 63325 INT INP/OBS CARE 3/75MIN Diagnoses Acute hypoxemic respiratory failure J96.01 Acute heart failure with preserved ejection fraction I50.31
[2024-08-17] MEDS: ALBUT/IPRATROP 3MG/0.5MG NEB 3 ML VIAL NEB STA (18:06)
[2024-08-17] MEDS: FUROSEMIDE 40 MG/4 ML VIAL IV STA (18:07)
[2024-08-17 18:25] LABS: Appearance Urine Clear (Clear); Bacteria Urine Automated 4+ (None Seen); Bilirubin Urine Negative (Negative); Blood Urine 2+ (Negative); Cast Urine Automated 0-2 /lpf (0-2); Color Urine Yellow; Epithelial Cell Urine Auto 0-2 /hpf (0-2); Glucose Urine UA Negative (Negative); Ketones Urine Negative (Negative); Leukocyte Esterase Urine Negative (Negative); Nitrite Urine Negative (Negative); Protein Urine Trace (Negative); RBC Urine Automated >20 /hpf (0-2); Specific Gravity Urine 1.021 (1.000-1.030); Urobilinogen Urine Negative (Negative); WBC Urine Automated 0-5 /hpf (0-5)
[2024-08-17] MEDS: hydrALAZINE TAB 50 MG TAB PO SCH (21:08)
[2024-08-17] MEDS: levETIRAcetam 500 MG TAB PO SCH (21:08)
[2024-08-17] MEDS: FOLIC ACID 1 MG TAB PO SCH (21:08)
[2024-08-18] MEDS: FLUTICASONE FUROATE 100MCG 14 PUFFS/INHALER INH SCH (08:32)
[2024-08-18] MEDS: METOPROLOL SUCC 50MG EXT REL TAB PO SCH (08:34)
[2024-08-18] MEDS: UMECLIDINIUM/VILANTEROL 62.5/25MCG 7 PUFFS/INHALER INH SCH (08:34)
[2024-08-18] MEDS: MAGNESIUM OXIDE 400 MG TAB PO SCH (08:34)
[2024-08-18] MEDS: LOSARTAN POTASSIUM 50 MG TAB PO SCH (08:34)
[2024-08-18] MEDS: FUROSEMIDE 40 MG/4 ML VIAL IV SCH (08:48)
[2024-08-18] MEDS ORDERED: NON-FORMULARY MEDICATION (Fluticasone-Umeclidin-Vilanter [Trelegy Ellipta] 100-62.5-25 mcg INH SCH (09:00)
[2024-08-18] MEDS: ASPIRIN 81 MG CHEW PO SCH (09:35)
[2024-08-18 10:21] LABS: BUN Creatinine Ratio 36.8 (10-20); Calcium 9.4 mg/dl (8.6-10.3); Creatinine Clr Calc Pharmacy 56.1 ml/min; Magnesium 1.7 mg/dl (1.7-2.4); Potassium 3.9 mmol/L (3.5-5.1)
[2024-08-18] MEDS: OXYMETAZOLINE 0.05% 30 ML BTL ONE (10:32)
[2024-08-18] MEDS: CEFEPIME 2000MG 2,000 MG/20 ML SYR IV STA (10:43)
--- NOTE | 2024-08-18 11:39 | Cardiology Consultation ---
Date of Consultation August 18, 2024 Assessment & Plan (1) Right lower lobe pneumonia: (2) Atrial flutter: (3) Cardiac pacemaker in situ: (4) S/P AV martell ablation: (5) Abnormal echocardiogram: (6) Prolonged QT interval: Plan Right lower lobe pneumonia. - As per Hospitalist. Prolonged QT interval - Past trial of beta-kell therapy very poorly tolerated. - Avoid QTc prolonging medications if possible Pericardial effusion. Suspect secondary to infection process. Resting echocardiography pending. Volume Status: Normovolemic. Permanent atrial flutter/fibrillation. - Status post January 30, 2024 31 mm Watchman implantation - March 14, 2024 MINH with a well seated device without evidence of perivalvular leak or thrombus; study terminated early due to excessive secretions - Status post March 05, 2024 radiofrequency ablation of the AV junction. 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 - August 14, 2024 Device Interrogation: 8.7 to 9.5 years. DDDR. AP 18%. GENERAL OFFICE CLERK > 99%. AMS Rate 90 bpm. - Rothman Car Shifter contacted for reprogramming, ? decrease AMS rate to 80 bpm. Abnormal Echocardiogram. ? Infiltrative process. Outpatient Cardiac MRI pending. 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 Supervising Physician Co-Signing Physician Notes Attending attestation: Case reviewed with the advanced practitioner. I have personally performed a history and physical examination on the patient. I have reviewed the advanced practitioner's documentation on the date of service referenced in note, and I agree with, and take responsibility for the plan of care. EKG performed today 08/18/2024 reviewed/interpreted independently with underlying atrial fibrillation/flutter and ventricular pacing, 90 bpm. Is difficult to calculate the corrected QT interval with regards to distinguishing between the atrial activity in the T wave. Lead I may be the best lead with regards to seeing a clear T wave. Historically when the patient was in sinus rhythm the corrected QT interval was prolonged which prevented titration of dofetilide. With difficulty calculating and monitoring the QT interval I think would be most prudent to QT prolonging agents such as azithromycin all possible. I spent a total of 20 minutes coordinating, documenting, and providing care for this patient excluding time spent in the performance of separately billed services or time spent by another provider. Homer Franklin DO History of Present Illness Reason for Consultation: Prolonged QT, needs azithromycin Requesting Physician: Dr. Anisa Guajardo MD Attending Physician: Dr. Anisa Guajardo MD History of Present Illness Danielle Pulliam is a complex 74-year-old female who awoke this morning around 5 AM with acute shortness of breath, SpO2 readings in the 70s. Imaging of the chest with multifocal patchy areas of ground glass and a few regions of nodular opacity most consistent with atypical infectious process per radiological interpretation. History from patient limited due to expressive aphasia. not present at bedside at time of consultation. No chest pain. No palpitations. No orthopnea, PND, peripheral edema, or abrupt weight change. No syncope. 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 Past trial of beta-ekll therapy very poorly tolerated. Prolonged QT interval Permanent atrial fibrillation/flutter status post March 05, 2024 radiofrequency ablation of the AV junction. Muscular dystrophy COPD Obstructive sleep apnea, CPAP therapy Hypertension Dyslipidemia. SIADH Carcinoid syndrome GERD Prediabetes Prior small bowel obstruction Nasal surgery, polyp and spur Mohs surgery Lung biopsy S/P thoracotomy Hysterectomy with oophorectomy Appendectomy Cataract extraction Hospitalized at [facility] April 26, 2024 to April 30, 2024 with stroke-like symptoms attributed to dehydration, physiologic stress from UTI. Brain MRI with chronic findings. Chest x-ray revealed emphysema without acute process in the chest. Right apical nodular foci noted possibly representing scarring versus pulmonary nodule, new/progressed since February with radiology recommending three- month follow-up chest CT. Hospitalized at [facility] May 06, 2024 to May 20, 2024 after sustaining a witnessed ground level fall, tripping on her chair, without loss of consciousness, resultant distal left clavicular fracture and superior/inferior pubic ramus fracture Family History: Positive for CAD in father. Mother with CHF Social History: Former smoker, smoking from the age of 16 to 63. . Retired Allergies Allergy/AdvReac Type Severity Reaction Status Date / Time Iodinated Contrast Media Allergy Intermediate Hives Verified 08/12/24 16:23 mold Allergy Intermediate SNEEZING/CO Verified 08/12/24 16:23 NGESTION moxifloxacin [From Avelox] Allergy Intermediate ITCHING/YEAST Verified 08/12/24 16:23 INFECTION Tetracyclines Allergy Intermediate ? ITCH ALL Verified 08/12/24 16:23 OVER, PT NOT SURE adhesive Allergy Mild ITCHY RASH Verified 08/12/24 16:23 Penicillins Allergy Rash Verified 08/12/24 16:23 Sulfa (Sulfonamide Allergy Swelling Verified 08/12/24 16:23 Antibiotics) of Lip/Tongue/Throat amlodipine AdvReac Intermediate FATIGUE/CON Verified 08/12/24 16:23 STIPATION cefuroxime AdvReac Intermediate CAUSED C. Verified 08/12/24 16:23 DIFF INFECTION Home Medications Medication Instructions Recorded Confirmed Type fluticasone propionate 50 2 spray intranasal DAILY PRN 04/13/22 08/17/24 History mcg/actuation nasal Allergy Symptoms spray,suspension (Flonase Allergy Relief) albuterol sulfate 90 mcg/actuation 2 puff inhalation Q4H PRN 10/25/22 08/17/24 Rx aerosol inhaler (Ventolin HFA) Shortness Of Breath #3 Inhalers fluticasone fur. 100 mcg-umeclid 1 inh inhalation DAILY #3 Inhalers 12/25/23 08/17/24 Rx 62.5 mcg-vilant 25 mcg inhalat.powder (Trelegy Ellipta) aspirin 81 mg chewable tablet 81 mg PO DAILY 02/07/24 08/17/24 History levetiracetam 500 mg tablet 500 mg PO BID 02/07/24 08/17/24 History (Keppra) multivitamin 1 tab PO DAILY 02/07/24 08/17/24 History folic acid 1 mg tablet 1 mg PO BID 04/26/24 08/17/24 History hydralazine 50 mg tablet 100 mg (2 x 50 mg) PO TID #90 tabs 05/21/24 08/17/24 Rx cholecalciferol (vitamin D3) 50 50 mcg PO DAILY 06/29/24 08/17/24 History mcg (2,000 unit) capsule magnesium oxide 400 mg (241.3 mg 400 mg PO QAM #0 tabs 07/01/24 08/17/24 Rx magnesium) tablet metoprolol succinate 50 mg 50 mg PO DAILY #30 tabs 07/01/24 08/17/24 Rx tablet,extended release 24 hr (Toprol XL) metformin 500 mg tablet 200 mg PO BID 08/12/24 08/17/24 History prednisone 50 mg tablet 50 mg PO DAILY #3 tabs 08/14/24 08/17/24 Rx olmesartan 40 mg tablet 40 mg PO DAILY 08/17/24 08/17/24 History Patient History Medical History Subarachnoid hemorrhage Acute intracerebral hemorrhage Shoulder pain, right Former smoker IBS (irritable bowel syndrome) Vitamin D deficiency History of small bowel obstruction (~2013) History of colon polyps History of skin cancer Antibiotic-induced yeast infection PRONE TO YEAST INFECTIONS WITH ANTIBIOTIC USE Seasonal allergies Lung nodules MONITORS Adrenal adenoma Carcinoid tumor of colon History of claustrophobia MILD Nasal cavity polyp Mild obstructive sleep apnea CPAP Chronic rhinitis Langerhans cell histiocytosis ? Gastroparesis DENIES GERD (gastroesophageal reflux disease) Surgical History History of surgery REMOTE HX FOR REMOVAL OF SKIN CA History of Mohs micrographic surgery for skin cancer History of lung biopsy H/O hysterectomy with oophorectomy S/P thoracotomy DENIES , REPORTS HX LUNG BIOPSY Hx of exploratory laparotomy HX BOWEL OBSTRUCTION S/P appendectomy H/O: hysterectomy TOTAL Family History Father Myocardial infarction Hypertension Mother Congestive heart failure Hypertension Grandfather (Paternal) Myocardial infarction Grandfather (Maternal) Myocardial infarction Grandmother Colorectal cancer Other Atrial fibrillation Family history of diabetes mellitus Social History Smoking Status: Never smoker Tobacco Type: Cigarettes Age Started Using Tobacco: 16; Age Quit Using Tobacco: 63; packs per day: 0.75; Second Hand Exposure: No; Do You Dip or Chew Tobacco: No; Hx Alcohol Use: Yes Alcohol type: wine Hx Substance Use: No Preferred Language: Slovenian Communication Ability: Effective Electric Meter Inspector Required: No Beliefs That Will Affect Care: None marital status: Current Living Situation: Spouse current occupational status: retired Feels Safe at Home: Yes Seatbelt Use: always Sunscreen Use: Yes Assistive Devices: Cane, CPAP, Glasses, Oxygen - at Night, Oxygen - Continuous and Walker Review of Systems Review of Systems: Complete Review of Systems is as stated above, negative, or noncontributory. Physical Exam Physical Exam: General: Fatigued. Tachypneic. Cooperative. Skin: No rash. The left subclavian incision/pocket looks OK. Eyes: PER. Conjunctiva pink, sclera clear. HENT: Normocephalic. Atraumatic. Neck: No JVD. Heart: Regular at 90 bpm. No murmur. No rub. Lungs: Diminished. Decreased. Right sided rhonchi. No wheeze. Abdomen: +BS. Soft. Nontender. No masses. No organomegaly. Extremities: No clubbing, cyanosis, or edema. Pulses: Posterior tibial=2/4. Results & Data Vital Signs (Past 12 Hours) Vital Signs Temp Pulse Pulse Resp BP Pulse Ox O2 Del Method 08/18/24 11:09 36.5 C 88 20 107/64 96 Nasal Cannula 08/18/24 08:00 Nasal Cannula 08/18/24 07:00 36.5 C 90 20 153/86 H 91 Oxymask 08/18/24 03:09 36.6 C 90 18 142/83 H 95 Oxymask 08/17/24 23:59 90 08/17/24 23:52 86 34 H 97 O2 Flow Rate 08/18/24 11:09 5 08/18/24 08:00 5 08/18/24 07:00 5 08/18/24 03:09 5 08/17/24 23:59 08/17/24 23:52 5 Laboratory Results Cardiac Enzymes 08/17/24 Range/Units 15:29 AST 31 (13-39) U/L Troponin I High Sens 14.0 (0-14) pg/ml B-Natriuretic Peptide 676 H (0-100) pg/ml Coagulation 08/17/24 Range/Units 15:29 PT 12.4 H (9.0-12.0) Seconds B-Natriuretic Peptide 676 H (0-100) pg/ml CBC 08/17/24 Range/Units 15:29 WBC 8.46 (4.8-10.8) K/ul RBC 4.12 L (4.20-5.40) M/uL Hgb 10.9 L (12.0-16.0) g/dl Hct 33.7 L (37.0-47.0) % Plt Count 389 (130-400) K/uL Neut # (Auto) 7.08 H (1.40-6.50) K/uL Lymph # (Auto) 0.90 L (1.20-3.40) K/uL Cass # (Auto) 0.38 (0.11-0.59) K/uL Eos # (Auto) 0.02 (0.00-0.50) K/uL Baso # (Auto) 0.01 (0.00-0.20) K/uL Comprehensive Metabolic Panel 08/17/24 08/18/24 Range/Units 15:29 09:37 Sodium 130 L 132 L (136-145) mmol/L Potassium 4.0 3.9 (3.5-5.1) mmol/L Chloride 96 L 98 (98-107) mmol/L Carbon Dioxide 27 26 (21-32) mmol/L BUN 18 28 H (6-23) mg/dl Creatinine 0.77 0.76 (0.6-1.2) mg/dl Glucose 110 H 110 H (70-99(Fasting)) mg/dl Calcium 10.1 9.4 (8.6-10.3) mg/dl AST 31 (13-39) U/L ALT 29 (7-52) U/L Alkaline Phosphatase 57 (34-104) U/L Total Protein 7.7 (6.0-8.3) gm/dl Albumin 3.9 (3.4-5.0) gm/dl Intake and Output 08/17/24 08/18/24 08/18/24 22:59 06:59 14:59 Intake Total 400 / 400 Output Total 1700 / 2600 900 / 2600 Balance -1700 / -2200 -500 / -2200 Intake: Oral 400 / 400 Output: Urine Amount (Catheter) 1700 / 2600 900 / 2600 Arevalo/Indwelling 1700 / 2600 900 / 2600 Other: Weight 60.9 kg 61 kg Weight Measurement Method [facility] Diagnostic Findings March 14, 2024 [facility] at [facility] revealed a well seated 31 mm Watchman device with no evidence of perivalvular leak or thrombus formation. Study terminated early due to excessive secretions, in order to minimize risk of aspiration. LV size and function were normal, EF 55 to 60%, without regional wall motion abnormalities. RV size and function normal. Biventricular hypertrophy noted along with lipomatous hypertrophy of the atrial septum. Resting echocardiography on April 27, 2024 revealed a small pericardial e ffusion without tamponade. Bubble study was negative for [id number] shunt. July 15, 2024 TTE Interpretation Summary (as per Dr. Grady): A small posterior loculated pericardial effusion is present. Cardiac tamponade is absent. The left ventricular cavity size is normal. The LV wall thickness is moderately increased (concentric). Myocardium is hyperechogenic The left ventricular wall motion is normal. The qualitative LV ejection fraction is 60- 64% (normal). The left ventricular diastolic function is mildly abnormal (grade I). There is no significant valvular disease August 14, 2024 Device Interrogation: 8.7 to 9.5 years. DDDR. AP 18%. GENERAL OFFICE CLERK > 99%. AMS Rate 90 bpm. August 18, 2024 TTE: Complete, pending interpretation EKG obtained on presentation revealed atrial flutter with a ventricular paced rhythm at 90 bpm
--- NOTE | 2024-08-18 15:21 | Hospitalist Progress Note ---
Date of Service August 18, 2024 Assessment & Plan (1) Acute hypoxemic respiratory failure: Plan: Suspected secondary to HF with increasing BNP and CT with possible pulmonary edema although no leg edema Also secondary to pneumonia which is worsening on CT here compared to CT from 08/15 as an outpatient with nodules Consult pulmonology Procalcitonin negative therefore antibiotics deferred on admission, but will start cefepime. She is allergic to tetracycline as well as moxifloxacin and her QT is prolonged thus prohibiting addition of azithromycin or levofloxacin or doxycycline for atypicals. However, her bio fire is negative for mycoplasma which is reassuring Biofire PCR negative Continue to wean off O2 as able-currently on 5L NC Add on bronchodilator nebs, continue inhaled fluticasone, umeclidinium/vilanterol Continue IV diuresis Afrin and humidification added to O2 for nosebleed secondary to this nasal cannula (2) Pneumonia: Plan: With increasing nodular opacities and groundglass opacities diffusely on CT, treatment noted as above Start cefepime, cannot treat for atypicals due to allergies and prolonged QT Pulmonary toilet Check sputum sample, MRSA nasal swab, and Legionella urine antigen (3) Acute heart failure with preserved ejection fraction: Plan: Could possibly be due to previous salt tablets No significant leg edema to suggest right sided heart failure Echo from outpatient in 07/2024 shows EF 60-64%, moderate LVH, small posterior loculated pericardial effusion without tamponade Repeat echo here pending UA with only trace protein, no prior liver problems and LFTs normal Diuresing well with Lasix 40mg IV daily-continue Strict I&Os, daily weights, low-sodium diet (4) Prolonged QT interval: Plan: QT difficult to interpret on EKG here even on repeat on 08/18 which shows paced rhythm atrial flutter. Appreciate cardiology consultation-historically when in sinus rhythm, she also had prolonged QT, hence they recommend avoiding QT prolonging agents Plan Chronic medical conditions: HTN -BPs normal, continue home hydralazine, losartan, Toprol-XL, and IV Lasix pAfib/flutter- presence of Watchman hence no anticoagulation, permanent, appreciate cardiology consultation, continue Toprol XL Hyponatremia-sodium 130 on arrival and now improved to 132 with diuresis-follow BMP, continue diuresis JG - CPAP HS Recent hemorrhagic stroke-has repeat head CT as an outpatient scheduled for 09/05, follows with neurology VTE Prophylaxis - SCDs, deferred chemical due to recurrent hemorrhagic strokes Disposition -continued stay PCU Admission and Anticipated Discharge Date Admission Date: August 17, 2024 Subjective Patient still somewhat short of breath. Is not producing much sputum. Had 2 nosebleeds this morning that resolved with Afrin spray. Remains on 5L NC O2. She denies diarrhea. Denies chest pain I discussed her care with pulmonology. Telemetry with paced rhythm and atrial flutter, PVCs, rates in the 90s Physical Exam Constitutional: well developed; no acute distress Respiratory: + tachypneic Auscultation: + crackles (Bibasilar); no rhonchi and no wheezes Cardiovascular: Rate/Rhythm: regular rate and regular rhythm Extremities: no edema Gastrointestinal (Abdomen): normal bowel sounds, soft, nontender, no hepatosplenomegaly Psychiatric: Orientation: alert and oriented x 3 Genitourinary: + abnormal external appearance (Arevalo ca theter in place) Results & Data Results & Data Vital Signs (Past 12 Hours) Vital Signs Temp Pulse Resp BP Pulse Ox O2 Del Method O2 Flow Rate 08/18/24 14:12 80 137/78 08/18/24 11:09 36.5 C 88 20 107/64 96 Nasal Cannula 5 08/18/24 08:00 Nasal Cannula 5 08/18/24 07:00 36.5 C 90 20 153/86 H 91 Oxymask 5 Laboratory Results BMP, magnesium reviewed PG Care Time/CCT Total # of Minutes Spent Total Time Spent with Patient: Total time spent is greater than 50% in coordination of care (as documented) at patient's floor/unit and/or counseling patient: Coding Level of Care Code 56818 SUB INP/OBS CARE 3/50MIN Diagnoses Acute hypoxemic respiratory failure J96.01 Pneumonia J18.9 Acute heart failure with preserved ejection fraction I50.31 Prolonged QT interval R94.31
--- NOTE | 2024-08-18 15:59 | Pulmonary Consultation ---
Date of Consultation August 18, 2024 Assessment & Plan (1) Pneumonia: (2) Prolonged QT interval: (3) Pulmonary edema: (4) Elevated brain natriuretic peptide (BNP) level: (5) Tachypnea: (6) Hypoxia: (7) Obstructive sleep apnea: Plan 74-year-old female with a complex past medical history including myotonic dystrophy, hemorrhagic strokes, atrial fibrillation, hypertension, emphysematous lung disease and neuromuscular weakness presenting to the hospital for dyspnea and increased hypoxemia. CT chest findings suggestive of aspiration pneumonitis versus pneumonia. Procalcitonin was negative which is reassuring suggesting against atypical bacterial pneumonia process. Obtain sputum cultures if able. Start hypertonic saline twice daily. Transition from powdered inhalers to nebulized formoterol and budesonide while inpatient. Start pulmonary toilet with incentive spiromet er and flutter valve. Continue cefepime. Suggest infectious disease consult to discuss atypical antibiotic coverage given prolonged QTc and intolerance to tetracyclines in the past. Follow-up urine Legionella antigen. Respiratory viral panel was negative. Recommend speech evaluation for aspiration (ordered). Discussed possible bronchoscopy to evaluate infiltrates if no clinical improvement. Would like to avoid bronchoscopy at this time given significant history of cardiac disease and previous strokes. Recommend utilizing CPAP given her history of JG. Wean supplemental oxygen as able. Will likely need to step prior to discharge and a nocturnal O2 study on CPAP when she is closer to discharge. Continue to maintain euvolemia. Pulmonary will continue to follow. Thank you for the consult. Discussed with hospitalist service, bedside nursing, patient's at bedside and patient at bedside. History of Present Illness Reason for Consultation: Hypoxia and abnormal chest x-ray and CT chest Attending Physician: Anisa Guajardo MD History of Present Illness 74-year-old female with a history of hemorrhagic stroke, myotonic dystrophy, prolonged QT, cardiac pacemaker, type 2 diabetes mellitus and COPD who presented to the hospital due to increasing shortness of breath and cough over the last 2 days. She was seen by me as an outpatient in the pulmonary clinic last week. She was doing relatively well on Sunday and then suddenly developed shortness of breath the following morning. She has been dealing with tachypnea since her previous stroke. She has supplemental oxygen which she uses at home on an as- needed basis and she has CPAP at home for obstructive sleep apnea. She had a CTA x 2 on 08/17/2024 and 08/15/2024. Latest CT chest reveals bilateral groundglass opacities and bronchiolitis, most significant groundglass opacities in the right lower lobe. She has a [id number] smoking history. Allergies Allergy/AdvReac Type Severity Reaction Status Date / Time Iodinated Contrast Media Allergy Intermediate Hives Verified 08/12/24 16:23 mold Allergy Intermediate SNEEZING/CO Verified 08/12/24 16:23 NGESTION moxifloxacin [From Avelox] Allergy Intermediate ITCHING/YEAST Verified 08/12/24 16:23 INFECTION Tetracyclines Allergy Intermediate ? ITCH ALL Verified 08/12/24 16:23 OVER, PT NOT SURE adhesive Allergy Mild ITCHY RASH Verified 08/12/24 16:23 Penicillins Allergy Rash Verified 08/12/24 16:23 Sulfa (Sulfonamide Allergy Swelling Verified 08/12/24 16:23 Antibiotics) of Lip/Tongue/Throat amlodipine AdvReac Intermediate FATIGUE/CON Verified 08/12/24 16:23 STIPATION cefuroxime AdvReac Intermediate CAUSED C. Verified 08/12/24 16:23 DIFF INFECTION Home Medications Medication Instructions Recorded Confirmed Type fluticasone propionate 50 2 spray intranasal DAILY PRN 04/13/22 08/17/24 History mcg/actuation nasal Allergy Symptoms spray,suspension (Flonase Allergy Relief) albuterol sulfate 90 mcg/actuation 2 puff inhalation Q4H PRN 10/25/22 08/17/24 Rx aerosol inhaler (Ventolin HFA) Shortness Of Breath #3 Inhalers fluticasone fur. 100 mcg-umeclid 1 inh inhalation DAILY #3 Inhalers 12/25/23 08/17/24 Rx 62.5 mcg-vilant 25 mcg inhalat.powder (Trelegy Ellipta) aspirin 81 mg chewable tablet 81 mg PO DAILY 02/07/24 08/17/24 History levetiracetam 500 mg tablet 500 mg PO BID 02/07/24 08/17/24 History (Keppra) multivitamin 1 tab PO DAILY 02/07/24 08/17/24 History folic acid 1 mg tablet 1 mg PO BID 04/26/24 08/17/24 History hydralazine 50 mg tablet 100 mg (2 x 50 mg) PO TID #90 tabs 05/21/24 08/17/24 Rx cholecalciferol (vitamin D3) 50 50 mcg PO DAILY 06/29/24 08/17/24 History mcg (2,000 unit) capsule magnesium oxide 400 mg (241.3 mg 400 mg PO QAM #0 tabs 07/01/24 08/17/24 Rx magnesium) tablet metoprolol succinate 50 mg 50 mg PO DAILY #30 tabs 07/01/24 08/17/24 Rx tablet,extended release 24 hr (Toprol XL) metformin 500 mg tablet 200 mg PO BID 08/12/24 08/17/24 History prednisone 50 mg tablet 50 mg PO DAILY #3 tabs 08/14/24 08/17/24 Rx olmesartan 40 mg tablet 40 mg PO DAILY 08/17/24 08/17/24 History Patient History Medical History Subarachnoid hemorrhage Acute intracerebral hemorrhage Shoulder pain, right Former smoker IBS (irritable bowel syndrome) Vitamin D deficiency History of small bowel obstruction (~2013) History of colon polyps History of skin cancer Antibiotic-induced yeast infection PRONE TO YEAST INFECTIONS WITH ANTIBIOTIC USE Seasonal allergies Lung nodules MONITORS Adrenal adenoma Carcinoid tumor of colon History of claustrophobia MILD Nasal cavity polyp Mild obstructive sleep apnea CPAP Chronic rhinitis Langerhans cell histiocytosis ? Gastroparesis DENIES GERD (gastroesophageal reflux disease) Surgical History History of surgery REMOTE HX FOR REMOVAL OF SKIN CA History of Mohs micrographic surgery for skin cancer History of lung biopsy H/O hysterectomy with oophorectomy S/P thoracotomy DENIES , REPORTS HX LUNG BIOPSY Hx of exploratory laparotomy HX BOWEL OBSTRUCTION S/P appendectomy H/O: hysterectomy TOTAL Family History Father Myocardial infarction Hypertension Mother Congestive heart failure Hypertension Grandfather (Paternal) Myocardial infarction Grandfather (Maternal) Myocardial infarction Grandmother Colorectal cancer Other Atrial fibrillation Family history of diabetes mellitus Social History Smoking Status: Never smoker Tobacco Type: Cigarettes Age Started Using Tobacco: 16; Age Quit Using Tobacco: 63; packs per day: 0.75; Second Hand Exposure: No; Do You Dip or Chew Tobacco: No; Hx Alcohol Use: Yes Alcohol type: wine Hx Substance Use: No Preferred Language: Belarusian Communication Ability: Effective Therapist Rrt Required: No Beliefs That Will Affect Care: None marital status: Current Living Situation: Spouse current occupational status: retired Feels Safe at Home: Yes Seatbelt Use: always Sunscreen Use: Yes Assistive Devices: CPAP, Oxygen - Continuous and Walker Review of Systems Review of Systems: All systems reviewed & are unremarkable except as noted in HPI & below Physical Exam Physical Exam: Constitutional: Patient appears to be of their stated age. Patient is in no apparent distress. Patient is well-developed. Eyes: Pupils are equal round and reactive to light. Conjunctivae are normal. Anicteric sclera. Ears nose, mouth and throat: No perioral cyanosis. Neck: Trachea is midline. Visual inspection is normal. Respiratory: Prolonged phase of exhalation. Tachypneic at baseline. Crackles at the base of the lungs, right greater than left. Cardiovascular: Regular rate and rhythm. No murmurs. No edema. Gastrointestinal: Normal bowel sounds, soft, nontender and nondistended. No hepatosplenomegaly noted. Musculoskeletal: No cyanosis. Patient is able to move all extremities. Skin: No rashes, warm dry and intact. Neurologic: Expressive aphasia. Weak upper extremities bilaterally. Psychiatric: Alert and oriented x3 with a euthymic affect. Results & Data Results & Data Vital Signs (Past 12 Hours) Vital Signs Temp Pulse Resp BP Pulse Ox O2 Del Method O2 Flow Rate 08/18/24 15:00 36.6 C 80 16 104/73 95 Nasal Cannula 08/18/24 14:12 80 137/78 08/18/24 11:09 36.5 C 88 20 107/64 96 Nasal Cannula 5 08/18/24 08:00 Nasal Cannula 5 08/18/24 07:00 36.5 C 90 20 153/86 H 91 Oxymask 5 PG Care Time/CCT Total # of Minutes Spent Total Time Spent with Patient: Total time spent is greater than 50% in coordination of care (as documented) at patient's floor/unit and/or counseling patient: Coding Level of Care Code 76731 INT INP/OBS CARE 3/75MIN Diagnoses Pneumonia J18.9 Prolonged QT interval R94.31 Pulmonary edema J81.1 Elevated brain natriuretic peptide (BNP) level R79.89 Tachypnea R06.82 Hypoxia R09.02 Obstructive sleep apnea G47.33
[2024-08-18] MEDS: FORMOTEROL 20 MCG/2 ML VIAL NEB SCH (20:28)
[2024-08-18] MEDS: BUDESONIDE 0.5 MG/2 ML VIAL (PULMICORT) NEB SCH (20:28)
[2024-08-18] MEDS: SODIUM CHLOR 7% 4 ML NEB NEB SCH (20:28)
[2024-08-18] MEDS: CEFEPIME 2000MG 2,000 MG/20 ML SYR IV SCH (20:48)
[2024-08-19 07:34] LABS: Basophils # (auto) 0.02 K/uL (0.00-0.20); Basophils % (auto) 0.2 %; Eosinophils # (auto) 0.09 K/uL (0.00-0.50); Eosinophils % (auto) 0.9 %; Hematocrit (blood only) 30.3 % (37.0-47.0); Hemoglobin 9.9 g/dl (12.0-16.0); Immature Granulocytes # (auto) 0.08 K/uL (0.01-0.20); Immature Granulocytes % (auto) 0.8 %; Lymphocytes # (auto) 1.51 K/uL (1.20-3.40); Mean Corpuscular Hgb Conc 32.7 g/dL (32.0-36.0); Mean Corpuscular Volume 82.6 fL (80.0-100.0); Mean Platelet Volume 9.4 fL (9.4-12.4); Monocytes # (auto) 0.59 K/uL (0.11-0.59); Monocytes % (auto) 5.9 %; Neutrophils # (auto) 7.79 K/uL (1.40-6.50); Neutrophils % (auto) 77.2 %; Platelet Count 407 K/uL (130-400); RDW Coefficient of Variation 14.7 % (11.5-14.5); RDW Standard Deviation 43.8 fL (36.4-46.3); Red Blood Count 3.67 M/uL (4.20-5.40); White Blood Count 10.08 K/ul (4.8-10.8)
[2024-08-19 07:51] LABS: Albumin Level 3.4 gm/dl (3.4-5.0); BUN Creatinine Ratio 35.2 (10-20); Bilirubin,Total 0.7 mg/dl (0.2-1.0); Calcium 9.4 mg/dl (8.6-10.3); Creatinine Clr Calc Pharmacy 48.4 ml/min; Globulin 3.3 gm/dl (2.5-4.0); Potassium 4.2 mmol/L (3.5-5.1); Total Protein 6.7 gm/dl (6.0-8.3)
--- NOTE | 2024-08-19 09:54 | Pulmonology Progress Note ---
Date of Service August 19, 2024 Assessment & Plan (1) Pneumonia: (2) Prolonged QT interval: (3) Pulmonary edema: (4) Elevated brain natriuretic peptide (BNP) level: (5) Tachypnea: (6) Hypoxia: (7) Obstructive sleep apnea: Plan 74-year-old female with a complex past medical history including myotonic dystrophy, hemorrhagic strokes, atrial fibrillation, hypertension, emphysematous lung disease and neuromuscular weakness presenting to the hospital for dyspnea and increased hypoxemia. CT chest findings suggestive of aspiration pneumonitis versus pneumonia. Procalcitonin was negative which is reassuring suggesting against typical bacterial pneumonia process. Unable to produce sputum for cultures so far. Continue hypertonic saline twice daily. Encouraged to use of flutter valve and incentive spirometry for pulmonary toileting. Nebulized formoterol and budesonid e while inpatient. Continue cefepime. Suggest infectious disease consult to discuss atypical antibiotic coverage given prolonged QTc and intolerance to tetracyclines in the past. Urine Legionella negative. Respiratory viral panel was negative. No need for bronchoscopic evaluation currently. Will continue to evaluate. Recommend removal of Arevalo catheter and patient to be out of bed to chair is much as possible. Increase exercise tolerance and ambulation as able. M[employer] BRANCH MANAGER evaluation reviewed. To undergo video swallow tomorrow. Recommend utilizing CPAP given her history of JG. Wean supplemental oxygen as able. Will likely need to step prior to discharge and a nocturnal O2 study on CPAP when she is closer to discharge. Continue to maintain euvolemia. Thank you for allowing us to participate in the care of this pleasant patient. Pulmonary medicine will continue to follow. Admission and Anticipated Discharge Date Admission Date: August 17, 2024 Supervising Physician Co-Signing Physician Notes Patient seen separately from the [facility]. Agree with the note as outlined above unless otherwise specified: Dyspnea slightly improved compared to yesterday. No significant fevers or chills overnight. Patient denies any chest pain. Does have occasional cough with minimal sputum. Continue to wean oxygen as able. Continue cefepime for the time being. Will defer additional antibiotic recommendations to infectious disease at this time. Echo noted with preserved EF. As stated previously, patient poor candidate for bronchoscopy underlying comorbidities. Patient undergo speech therapy evaluation tomorrow. Subjective Patient seen and evaluated at bedside. Her is present as well. She states that she feels about the same. She has not been out of bed much. She is not using her incentive spirometer or flutter valve. She offers no complaints of chest pain. She has a nonproductive cough. She was seen by MORTGAGE BRANCH MANAGER and has a diet ordered. She will have a swallow study performed tomorrow. Review of Systems Review of Systems: As per HPI Physical Exam Physical Exam: VITAL SIGNS Vital signs and nursing notes were reviewed. GENERAL 74-year-old female appearing her stated age who is in no acute distress. Communicates well with provider and answers questions appropriately. NOSE Midline and without cyanosis. MOUTH/OROPHARYNX Without perioral cyanosis. LUNGS Chest wall evaluation demonstrates normal chest wall A:P diameter. Auscultation reveals bibasilar rales. CARDIAC RRR with S1/S2. No murmur, rubs, or gallops appreciated. EXTREMITIES Nail clubbing not present. No peripheral cyanosis. No pretibial edema present. +3/5 radial palpated throughout. PSYCH A&Ox3 and cooperates fully with examiner. Pt is very pleasant and interacts well with examiner. Results & Data Results & Data Vital Signs (Past 12 Hours) Vital Signs Temp Pulse Pulse Resp BP Pulse Ox O2 Del Method 08/19/24 07:20 68 22 98 CPAP 08/19/24 07:00 36.6 C 72 22 133/84 97 Nasal Cannula 08/19/24 03:51 36.4 C L 79 20 122/82 97 CPAP 08/19/24 03:39 80 19 98 08/19/24 00:22 80 08/18/24 23:38 36.8 C 80 18 121/79 92 CPAP 08/18/24 23:22 80 20 96 O2 Flow Rate 08/19/24 07:20 4 08/19/24 07:00 5 08/19/24 03:51 08/19/24 03:39 4 08/19/24 00:22 08/18/24 23:38 08/18/24 23:22 4 PG Care Time/CCT Total # of Minutes Spent Total Time Spent with Patient: Total time spent is greater than 50% in coordination of care (as documented) at patient's floor/unit and/or counseling patient: Coding Level of Care Code 89307 SUB INP/OBS CARE 2/35MIN Diagnoses Pneumonia J18.9 Prolonged QT interval R94.31 Pulmonary edema J81.1 Elevated brain natriuretic peptide (BNP) level R79.89 Tachypnea R06.82 Hypoxia R09.02 Obstructive sleep apnea G47.33
--- NOTE | 2024-08-19 10:31 | Cardiology Progress Note ---
Date of Service August 19, 2024 Assessment & Plan (1) Right lower lobe pneumonia: (2) Atrial flutter: (3) Cardiac pacemaker in situ: (4) S/P AV martell ablation: (5) Abnormal echocardiogram: (6) Prolonged QT interval: Plan Right lower lobe pneumonia. - As per Hospitalist. Prolonged QT interval - Avoid QTc prolonging medications if possible Pericardial effusion. - Echo on 08/18/2024 with trace pericardial fluid adjacent to the right atrium and right ventricle on subcostal views, without tamponade HFpEF. Hyponatremia/SIADH. - Prescribed IV furosemide 40 mg/day since admission. - Hyponatremia improved. - Volume status appears normovolemic to minimally hypervolemic. - Arevalo catheter remains in place. - Consider transitioning to oral furosemide 20 mg/day for SIADH, fluid retention, hypertension. Atrial flutter/fibrillation. 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 [id number] Score 7 points. - Status post January 30, 2024 31 mm Watchman implantation - March 14, 2024 MINH with a well seated device without evidence of perivalvular leak or thrombus; study terminated early due to excessive secretions - Status post March 05, 2024 radiofrequency ablation of the AV junction. 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 - Base rate decreased from 90 bpm to 80 bpm on 08/18/2024 by Rothman Diamond Mounter Hypertension - Prescribed losartan, hydralazine, and metoprolol succinate 50 mg/day which was prescribed when hospitalized with stroke like symptoms in June 2024. - Patient with past poor tolerance to beta-kell therapy when hospitalized in February 2024 - See above. Abnormal Echocardiogram - Echo on 07/15/2024 with small posterior loculated pericardial effusion, moderately LVH, hyperechogenic myocardium, grade I diastolic dysfunction. - ? Infiltrative process. - Outpatient Cardiac MRI Please contact with any cardiac questions or concerns. Admission and Anticipated Discharge Date Admission Date: August 17, 2024 Supervising Physician Co-Signing Physician Notes Attending attestation: Case reviewed with the advanced practitioner. I have personally performed a history and physical examination on the patient. I have reviewed the advanced practitioner's documentation on the date of service referenced in note, and I agree with, and take responsibility for the plan of care. Patient felt to have multifactorial shortness of breath. She has a history of dual-chamber permanent pacemaker implantation and AV node ablation. Per historical pacemaker data she is in sinus rhythm a brief amount of time, however on her echocardiogram she has severe left atrial enlargement, and she has proven to be intolerant to past trials of antiarrhythmic therapy with noted QT prolongation with dofetilide initiation. At the time previous cardiology evaluations as inpatient, the patient was felt to be intolerant of beta-kell which seem to worsen her wheezing and there are also underlying concerns of beta-kell therapy in the setting of neuromuscular disease. Per review of chart, it appears that in June, metoprolol added for treatment of hypertension. At this time I am hesitant to stop her metoprolol abruptly, but recommend weaning down the metoprolol succinate from 50 mg to 25 mg with future plans to discontinue it again depending on how she does. Although she is in sinus rhythm today, ultimately given findings of severe left atrial lodgment I do not think it is going to be possible to maintain sinus rhythm. I spent a total of 20 minutes coordinating, documenting, and providing care for this patient excluding time spent in the performance of separately billed services or time spent by another provider. Hmoer Franklin, DO Subjective Patient seen and examined. Chart, medications, and telemetry reviewed. at bedside. Feeling a little better today. + Mild neck pain. + Cough and chest congestion. Breathing has improved. No chest pain. No palpitations. No peripheral edema. Arevalo catheter remains in place. Review of Systems Review of Systems: Complete Review of Systems is as stated above, negative, or noncontributory. Physical Exam Physical Exam: General: Fatigued. More comfortable. NAD. Skin: + Pallor Neck: No JVD. Heart: Regular at 80 bpm. No murmur. No rub. Lungs: Diminished. Decreased. Right sided rales and rhonchi. No wheeze. Abdomen: +BS. Soft. Nontender. No masses. No organomegaly. Extremities: No edema. Pulses: Posterior tibial=2/4. Results & Data Vital Signs (Past 12 Hours) Vital Signs Temp Pulse Pulse Resp BP Pulse Ox O2 Del Method 08/19/24 07:20 68 22 98 CPAP 08/19/24 07:00 36.6 C 72 22 133/84 97 Nasal Cannula 08/19/24 03:51 36.4 C L 79 20 122/82 97 CPAP 08/19/24 03:39 80 19 98 08/19/24 00:22 80 08/18/24 23:38 36.8 C 80 18 121/79 92 CPAP 08/18/24 23:22 80 20 96 O2 Flow Rate 08/19/24 07:20 4 08/19/24 07:00 5 08/19/24 03:51 08/19/24 03:39 4 08/19/24 00:22 08/18/24 23:38 08/18/24 23:22 4 Laboratory Results Cardiac Enzymes 08/19/24 Range/Units 07:18 AST 25 (13-39) U/L CBC 08/19/24 Range/Units 07:18 WBC 10.08 (4.8-10.8) K/ul RBC 3.67 L (4.20-5.40) M/uL Hgb 9.9 L (12.0-16.0) g/dl Hct 30.3 L (37.0-47.0) % Plt Count 407 H (130-400) K/uL Neut # (Auto) 7.79 H (1.40-6.50) K/uL Lymph # (Auto) 1.51 (1.20-3.40) K/uL [place] # (Auto) 0.59 (0.11-0.59) K/uL Eos # (Auto) 0.09 (0.00-0.50) K/uL Baso # (Auto) 0.02 (0.00-0.20) K/uL Comprehensive Metabolic Panel 08/19/24 Range/Units 07:18 Sodium 133 L (136-145) mmol/L Potassium 4.2 (3.5-5.1) mmol/L Chloride 99 (98-107) mmol/L Carbon Dioxide 30 (21-32) mmol/L BUN 31 H (6-23) mg/dl Creatinine 0.88 (0.6-1.2) mg/dl Glucose 106 H (70-99(Fasting)) mg/dl Calcium 9.4 (8.6-10.3) mg/dl AST 25 (13-39) U/L ALT 27 (7-52) U/L Alkaline Phosphatase 43 (34-104) U/L Total Protein 6.7 (6.0-8.3) gm/dl Albumin 3.4 (3.4-5.0) gm/dl Intake and Output 08/18/24 08/19/24 08/19/24 22:59 06:59 14:59 Intake Total 700 / 700 0 / 700 Output Total 1550 / 1800 250 / 1800 Balance -850 / -1100 -250 / -1100 Intake: Oral 700 / 700 0 / 700 Output: Urine Amount (Catheter) 1550 / 1800 250 / 1800 Arevalo/Indwelling 1550 / 1800 250 / 1800 Other: Weight 60.1 kg Weight Measurement Method Built in [facility] Diagnostic Findings August 18, 2024 [facility]TE ([facility], Dr. Franklin): Trace pericardial fluid adjacent to the right atrium and right ventricle on subcostal view. Tamponade is absent. Overall, improved compared to prior studies in February and April 2024. Normal LV wall motion. Normal LV systolic function. EF 60-65%. Normal RV size and function. Severely dilated LA. Mild MR. Telemetry: Atrial fibrillation, ventricular paced at 80. + Periods of sinus (atrial pacing) overnight.
--- NOTE | 2024-08-19 13:19 | Hospitalist Progress Note ---
Date of Service August 19, 2024 Assessment & Plan (1) Acute hypoxemic respiratory failure: Plan: Suspected secondary to pneumonia and some component of acute on chronic HFpEF- with increasing BNP and CT with possible pulmonary edema although no leg edema Pneumonia is worsening on CT here compared to CT from 08/15 as an outpatient with increasing nodular opacities Consult pulmonology appreciated Procalcitonin negative therefore antibiotics deferred on admission, but have since started cefepime. She is allergic to tetracycline as well as moxifloxacin and her QT is prolonged thus prohibiting addition of azithromycin or levofloxacin or doxycycline for atypicals. However, her bio fire is negative for mycoplasma which is reassuring. Legionella urine antigen negative Appreciate ID consult-continue cefepime only for now and if worsens or decompensates, consider bronchoscopy and adding Flagyl versus switching to meropenem. Could also consider desensitization to doxycycline if concern for atypical pneumonia. Check sputum culture, Legionella culture Continue to wean off O2 as able-currently on 5L NC Continue bronchodilator nebs, continue inhaled fluticasone, umeclidinium/vilanterol Received IV diuresis for 2 days and now convert to p.o. Lasix 20 mg daily Continue Afrin and humidification to O2 for nosebleed secondary to nasal cannula (2) Pneumonia: Plan: With increasing nodular opacities and groundglass opacities diffusely on CT, treatment noted as above (3) Acute heart failure with preserved ejection fraction: Plan: Could possibly be due to previous salt tablets No significant leg edema to suggest right sided heart failure Echo from outpatient in 07/2024 shows EF 60-64%, moderate LVH, small posterior loculated pericardial effusion without tamponade Repeat echo here with preserved EF, no significant valvular disease UA with only trace protein, no prior liver problems and LFTs normal Diuresed over 3 L net negative. Convert IV Lasix to p.o. 20 mg daily Strict I&Os, daily weights, low-sodium diet (4) Prolonged QT interval: Plan: QT difficult to interpret on EKG here even on repeat on 08/18 which shows paced rhythm atrial flutter. Appreciate cardiology consultation-historically when in sinus rhythm, she also had prolonged QT, hence they recommend avoiding QT prolonging agents Plan Chronic medical conditions: HTN -BPs normal, continue home hydralazine, losartan, Toprol-XL, and now p.o. Lasix pAfib/flutter- presence of Watchman hence no anticoagulation, permanent, appreciate cardiology consultation, continue Toprol XL Hyponatremia-sodium 130 on arrival and now improved to 133 with diuresis-follow BMP, continue diuresis JG - CPAP HS Recent hemorrhagic stroke-has repeat head CT as an outpatient scheduled for 09/05, follows with neurology VTE Prophylaxis - SCDs, deferred chemical due to recurrent hemorrhagic strokes Disposition -continued stay PCU Admission and Anticipated Discharge Date Admission Date: August 17, 2024 Subjective Patient remains short of breath. Is oriented to person and place but not to t arielle. Has some expressive aphasia. Telemetry with atrial fibrillation and paced rhythm in the 80s I discussed his care with the speech therapist and pulmonology. Physical Exam Constitutional: well developed; no acute distress Respiratory: + tachypneic Auscultation: + crackles (Bibasilar); no rhonchi and no wheezes Cardiovascular: Rate/Rhythm: regular rate and regular rhythm Extremities: no edema Gastrointestinal (Abdomen): normal bowel sounds, soft, nontender, no hepatosplenomegaly Psychiatric: Orientation: alert, oriented to person and oriented to place; + not oriented to time Genitourinary: + abnormal external appearance ([place]o ca theter in place) Results & Data Results & Data Vital Signs (Past 12 Hours) Vital Signs Temp Pulse Pulse Resp BP Pulse Ox O2 Del Method 08/19/24 11:00 36.7 C 59 L 20 113/66 96 Room Air 08/19/24 08:00 Nasal Cannula 08/19/24 07:20 68 22 98 CPAP 08/19/24 07:00 36.6 C 72 22 133/84 97 Nasal Cannula 08/19/24 03:51 36.4 C L 79 20 122/82 97 CPAP 08/19/24 03:39 80 19 98 O2 Flow Rate 08/19/24 11:00 08/19/24 08:00 4 08/19/24 07:20 4 08/19/24 07:00 5 08/19/24 03:51 08/19/24 03:39 4 Laboratory Results CBC, BMP, MRSA swab, urine culture, Legionella urine antigen reviewed Diagnostic Findings Echocardiogram reviewed PG Care Time/CCT Total # of Minutes Spent Total Time Spent with Patient: Total time spent is greater than 50% in coordination of care (as documented) at patient's floor/unit and/or counseling patient: Coding Level of Care Code 87750 SUB INP/OBS CARE 350MIN Diagnoses Acute hypoxemic respiratory failure J96.01 Pneumonia J18.9 Acute heart failure with preserved ejection fraction I50.31 Prolonged QT interval R94.31
--- NOTE | 2024-08-19 14:46 | Infectious Disease Consult ---
Date of Consultation August 19, 2024 Assessment & Plan (1) Prolonged QT interval: (2) Pneumonia: Plan This is a 74-year-old female with a past medical history of myotonic dystrophy, atrial fibrillation, CVAs, hypertension, emphysematous lung disease, neuromuscular weakness who presents to the ED with shortness of breath and hypoxia. She is on oxygen at home as needed. She denies any fevers, chills, nausea, vomiting. Denies any aspiration events. Sats at home were in the 70s. In the ED temperature 36.4, pulse 90, RR 34, blood pressure 170/96, O2 sat 78% on room air-->95% on 5l . Labs: WBC 8.46, hemoglobin 10.9, hematocrit 33.7, platelets 389, BUN 18, creatinine 0.77. Respiratory viral panel negative. Urine Legionella antigen negative, MRSA screen negative.. Procalcitonin 0.06. CTA chest with no pulmonary embolism; + groundglass opacities and nodular densities which may represent infectious/inflammatory airway disease. Repeat imaging shows multifocal patchy areas of groundglass and a few regions of nodular opacities most consistent with an atypical infectious process. Findings were increased from 05/2025. There is mild superimposed interstitial pulmonary edema. Chest x-ray shows no glass infiltrate on the right base concerning for pneumonia which could be infectious or related to aspiration. There is acute on chronic interstitial changes ; c/f pulmonary edema or infectious pneumonitis. TTE with trace pericardial effuion. She is currently on cefepime ( started yesterday 08/18). ID consulted for possible atypical pneumonia as patient is unable to receive azithromycin and doxycycline. Per her chart, she documented allergies listed: Itching/yeast infections with moxifloxacin, itching with tetracyclines, rash with penicillins, anaphylaxis with sulfa. When asked if she remembers exactly what occurs when she received these antibiotics, she does not remember. She is not certain if these allergies are accurate. An EKG shows an prolonged QTc; 604 on 08/18 and 523 on 08/17. Pulmonology is following: There are no plans for bronchoscopy given underlying comorbidities. She is pending speech therapy evaluation. Micro UCx 08/17 >100K E faecalis ( amp S), Pseudomonas Aero ( Pending Sensitivity) Abx Cefepime 08/18-ongoing # Acute hypoxic respiratory failure # Pneumonia vs Pneumonitis # Abx allergies - PCN : rash -Tetracycline: itching -Moxifloxacin: itching -Sulfa- swelling # Prolonged QTC # Myotonic dystrophy #PPM in place #Asymptomatic bacteriuria Discussion- Procalcitonin is low at 0.06. She is afebrile. unclear if presentation is 2/2 pneumonia vs pneumonitis. There is c/f atypical infection and aspiration on imagin. Urine legionella ag negative. Mycoplasma pna and Chlamydia pna pcr negative ( on RVP). MRSA screen negative She is has documented allergies as per above, but is unclear to the reactions. Recommendations; Continue Cefepime 2 g IV q12 for now. If continued concern for atypical pneumonia, can consider desensitization to doxycycline. Would hold azithromycin or floroquinolones for now as QTC is prolonged If worsens, decompensates, may need to reconsider bronchoscopy. At that time, will consider adding Flagyl vs switching abx to Meropenem. If able to produce sputum; send for bacterial routine culture AND legionella culture. Thank you for this consult. ID will continue to follow. Efraín Toth MD, MPH Infectious Disease [facility], [facility] Call [phone] with questions Consultation Information Consultation was provided via telemedicine using two-way real-time interactive telecommunication between the patient and the telemedicine provider. For the duration of the visit, the provider was performing the assessment from a different facility than the patient. This includesuse of bluetooth stethoscope forauscultationperformed by the telepresenter that the telemedicine provider can hear if described in the physical exam. [employer] contact information: Please call [facility] Center . (Phone Number For Physician Use Only) After establishing a telemedicine visit, patient was: Patient was verified with two unique identifiers Time Spent with Patient: Initial => 75 min History of Present Illness Reason for Consultation: Possible atypical pneumonia, abx Requesting Physician: Bruce Melo MD Attending Physician: Anisa Guajardo MD History of Present Illness This is a 74-year-old female with a past medical history of myotonic dystrophy, atrial fibrillation, CVAs, hypertension, emphysematous lung disease, neuromuscular weakness who presents to the ED with shortness of breath and hypoxia. She is on oxygen at home as needed. She denies any fevers, chills, nausea, vomiting. Denies any aspiration events. Sats at home were in the 70s. In the ED temperature 36.4, pulse 90, RR 34, blood pressure 170/96, O2 sat 78% on room air-->95% on 5l . Labs: WBC 8.46, hemoglobin 10.9, hematocrit 33.7, platelets 389, BUN 18, creatinine 0.77. Respiratory viral panel negative. Urine Legionella antigen negative, MRSA screen negative.. Procalcitonin 0.06. CTA chest with no pulmonary embolism; + groundglass opacities and nodular densities which may represent infectious/inflammatory airway disease. Repeat imaging shows multifocal patchy areas of groundglass and a few regions of nodular opacities most consistent with an atypical infectious process. Findings were increased from 05/2025. There is mild superimposed interstitial pulmonary edema. Chest x-ray shows no glass infiltrate on the right base concerning for pneumonia which could be infectious or related to aspiration. There is acute on chronic interstitial changes ; c/f pulmonary edema or infec tious pneumonitis. TTE with trace pericardial effuion. She is currently on cefepime ( started yesterday 08/18). ID consulted for possible atypical pneumonia as patient is unable to receive azithromycin and doxycycline. Per her chart, she documented allergies listed: Itching/yeast infections with moxifloxacin, itching with tetracyclines, rash with penicillins, anaphylaxis with sulfa. When asked if she remembers exactly what occurs when she received these antibiotics, she does not remember. She is not certain if these allergies are accurate. An EKG shows an prolonged QTc; 604 on 08/18 and 523 on 08/17. Pulmonology is following: There are no plans for bronchoscopy given underlying comorbidities. She is pending speech therapy evaluation. Allergies Allergy/AdvReac Type Severity Reaction Status Date / Time Iodinated Contrast Media Allergy Intermediate Hives Verified 08/12/24 16:23 mold Allergy Intermediate SNEEZING/CO Verified 08/12/24 16:23 NGESTION moxifloxacin [From Avelox] Allergy Intermediate ITCHING/YEAST Verified 08/12/24 16:23 INFECTION Tetracyclines Allergy Intermediate ? ITCH ALL Verified 08/12/24 16:23 OVER, PT NOT SURE adhesive Allergy Mild ITCHY RASH Verified 08/12/24 16:23 Penicillins Allergy Rash Verified 08/12/24 16:23 Sulfa (Sulfonamide Allergy Swelling Verified 08/12/24 16:23 Antibiotics) of Lip/Tongue/Throat amlodipine AdvReac Intermediate FATIGUE/CON Verified 08/12/24 16:23 STIPATION cefuroxime AdvReac Intermediate CAUSED C. Verified 08/12/24 16:23 DIFF INFECTION Home Medications Medication Instructions Recorded Confirmed Type fluticasone propionate 50 2 spray intranasal DAILY PRN 04/13/22 08/17/24 History mcg/actuation nasal Allergy Symptoms spray,suspension (Flonase Allergy Relief) albuterol sulfate 90 mcg/actuation 2 puff inhalation Q4H PRN 10/25/22 08/17/24 Rx aerosol inhaler (Ventolin HFA) Shortness Of Breath #3 Inhalers fluticasone fur. 100 mcg-umeclid 1 inh inhalation DAILY #3 Inhalers 12/25/23 08/17/24 Rx 62.5 mcg-vilant 25 mcg inhalat.powder (Trelegy Ellipta) aspirin 81 mg chewable tablet 81 mg PO DAILY 02/07/24 08/17/24 History levetiracetam 500 mg tablet 500 mg PO BID 02/07/24 08/17/24 History (Keppra) multivitamin 1 tab PO DAILY 02/07/24 08/17/24 History folic acid 1 mg tablet 1 mg PO BID 04/26/24 08/17/24 History hydralazine 50 mg tablet 100 mg (2 x 50 mg) PO TID #90 tabs 05/21/24 08/17/24 Rx cholecalciferol (vitamin D3) 50 50 mcg PO DAILY 06/29/24 08/17/24 History mcg (2,000 unit) capsule magnesium oxide 400 mg (241.3 mg 400 mg PO QAM #0 tabs 07/01/24 08/17/24 Rx magnesium) tablet metoprolol succinate 50 mg 50 mg PO DAILY #30 tabs 07/01/24 08/17/24 Rx tablet,extended release 24 hr (Toprol XL) metformin 500 mg tablet 200 mg PO BID 08/12/24 08/17/24 History prednisone 50 mg tablet 50 mg PO DAILY #3 tabs 08/14/24 08/17/24 Rx olmesartan 40 mg tablet 40 mg PO DAILY 08/17/24 08/17/24 History Patient History Medical History Subarachnoid hemorrhage Acute intracerebral hemorrhage Shoulder pain, right Former smoker IBS (irritable bowel syndrome) Vitamin D deficiency History of small bowel obstruction (~2013) History of colon polyps History of skin cancer Antibiotic-induced yeast infection PRONE TO YEAST INFECTIONS WITH ANTIBIOTIC USE Seasonal allergies Lung nodules MONITORS Adrenal adenoma Carcinoid tumor of colon History of claustrophobia MILD Nasal cavity polyp Mild obstructive sleep apnea CPAP Chronic rhinitis Langerhans cell histiocytosis ? Gastroparesis DENIES GERD (gastroesophageal reflux disease) Surgical History History of surgery REMOTE HX FOR REMOVAL OF SKIN CA History of Mohs micrographic surgery for skin cancer History of lung biopsy H/O hysterectomy with oophorectomy S/P thoracotomy DENIES , REPORTS HX LUNG BIOPSY Hx of exploratory laparotomy HX BOWEL OBSTRUCTION S/P appendectomy H/O: hysterectomy TOTAL Family History Father Myocardial infarction Hypertension Mother Congestive heart failure Hypertension Grandfather (Paternal) Myocardial infarction Grandfather (Maternal) Myocardial infarction Grandmother Colorectal cancer Other Atrial fibrillation Family history of diabetes mellitus Social History Smoking Status: Never smoker Tobacco Type: Cigarettes Age Started Using Tobacco: 16; Age Quit Using Tobacco: 63; packs per day: 0.75; Second Hand Exposure: No; Do You Dip or Chew Tobacco: No; Hx Alcohol Use: Yes Alcohol type: wine Hx Substance Use: No Preferred Language: Taiwanese Communication Ability: Effective Endocrinology Nurse Required: No Beliefs That Will Affect Care: None marital status: Current Living Situation: Spouse current occupational status: retired Feels Safe at Home: Yes Seatbelt Use: always Sunscreen Use: Yes Assistive Devices: CPAP, Oxygen - Continuous and Walker Review of System pertinent positives as per HPI Physical Exam Physical Exam: Gen- NAD HEENT- ATNC, anicteric sclera Neck- supple Lungs- Decreased BS at bases, on 5L NC Abdomen- soft, NT Neuro- AAO times 3 Psych- Cooperative Results & Data Vital Signs (Past 12 Hours) Vital Signs Temp Pulse Pulse Resp BP Pulse Ox O2 Del Method 08/19/24 13:37 104/64 08/19/24 11:00 36.7 C 59 L 20 113/66 96 Room Air 08/19/24 08:00 Nasal Cannula 08/19/24 07:20 68 22 98 CPAP 08/19/24 07:00 36.6 C 72 22 133/84 97 Nasal Cannula 08/19/24 03:51 36.4 C L 79 20 122/82 97 CPAP 08/19/24 03:39 80 19 98 O2 Flow Rate 08/19/24 13:37 08/19/24 11:00 08/19/24 08:00 4 08/19/24 07:20 4 08/19/24 07:00 5 08/19/24 03:51 08/19/24 03:39 4 Laboratory Results Laboratory Results - last 48 hr 08/17/24 08/17/24 08/18/24 15:29 18:12 09:37 WBC 8.46 RBC 4.12 L Hgb 10.9 L Hct 33.7 L MCV 81.8 MCH 26.5 MCHC 32.3 RDW Std Deviation 43.3 RDW Coeff of Lion 14.6 H Plt Count 389 MPV 9.4 Immature Gran % (Auto) 0.8 Neut % (Auto) 83.8 Lymph % (Auto) 10.6 Knox % (Auto) 4.5 Eos % (Auto) 0.2 Baso % (Auto) 0.1 Neut # (Auto) 7.08 H Lymph # (Auto) 0.90 L Knox # (Auto) 0.38 Eos # (Auto) 0.02 Baso # (Auto) 0.01 Immature Gran # (Auto) 0.07 PT 12.4 H INR 1.2 H VBG pH 7.39 VBG pCO2 45 VBG pO2 28 VBG HCO3 27 VBG O2 Saturation < 60.0 VBG Base Excess 1.7 Sodium 130 L 132 L Potassium 4.0 3.9 Chloride 96 L 98 Carbon Dioxide 27 26 Anion Gap 7 8 BUN 18 28 H Creatinine 0.77 0.76 Est Cr Clr Drug Dosing 55.4 56.1 eGFR 80.90 82.17 BUN/Creatinine Ratio 23.4 H 36.8 H Glucose 110 H 110 H Lactate 1.5 Calcium 10.1 9.4 Magnesium 1.9 1.7 Total Bilirubin 0.6 AST 31 ALT 29 Alkaline Phosphatase 57 Troponin I High Sens 14.0 B-Natriuretic Peptide 676 H Total Protein 7.7 Albumin 3.9 Globulin 3.8 Albumin/Globulin Ratio 1.0 Procalcitonin 0.06 Urine Color Yellow Urine Appearance Clear Urine pH 7.0 Ur Specific [place] 1.021 Urine Protein Trace H Urine Glucose (UA) Negative Urine Ketones Negative Urine Blood 2+ H Urine Nitrite Negative Urine Bilirubin Negative Urine Urobilinogen Negative Ur Leukocyte Esterase Negative Urine WBC (Auto) 0-5 Urine RBC (Auto) >20 H U Hyaline Cast (Auto) 0-2 U Epithel Cells (Auto) 0-2 Urine Bacteria (Auto) 4+ H Nasal Screen MRSA (PCR) Adenovirus (PCR) Not Detected B. pertussis DNA (PCR) Not Detected B.parapertussis DNA PCR Not Detected C. pneumoniae DNA (PCR) Not Detected Coronavirus OC43 (PCR) Not Detected Coronavirus HKU1 (PCR) Not Detected Coronavirus 229E (PCR) Not Detected SARS-CoV-2 (PCR) Not Detected Coronavirus NL63 (PCR) Not Detected Human Metapneumovir PCR Not Detected Influenza Type A (PCR) Not Detected Influenza Type B (PCR) Not Detected Urine Legionella Ag M. pneumoniae (PCR) Not Detected Parainfluenza 1 (PCR) Not Detected Parainfluenza 2 (PCR) Not Detected Parainfluenza 3 (PCR) Not Detected Parainfluenza 4 (PCR) Not Detected RSV (PCR) Not Detected Entero/Rhino (PCR) Not Detected 08/18/24 08/18/24 08/19/24 10:45 11:24 07:18 WBC 10.08 RBC 3.67 L Hgb 9.9 L Hct 30.3 L MCV 82.6 MCH 27.0 MCHC 32.7 RDW Std Deviation 43.8 RDW Coeff of Lion 14.7 H Plt Count 407 H MPV 9.4 Immature Gran % (Auto) 0.8 Neut % (Auto) 77.2 Lymph % (Auto) 15.0 Knox % (Auto) 5.9 Eos % (Auto) 0.9 Baso % (Auto) 0.2 Neut # (Auto) 7.79 H Lymph # (Auto) 1.51 Knox # (Auto) 0.59 Eos # (Auto) 0.09 Baso # (Auto) 0.02 Immature Gran # (Auto) 0.08 PT INR VBG pH VBG pCO2 VBG pO2 VBG HCO3 VBG O2 Saturation VBG Base Excess Sodium 133 L Potassium 4.2 Chloride 99 Carbon Dioxide 30 Anion Gap 4 BUN 31 H Creatinine 0.88 Est Cr Clr Drug Dosing 48.4 eGFR 68.92 BUN/Creatinine Ratio 35.2 H Glucose 106 H Lactate Calcium 9.4 Magnesium 2.0 Total Bilirubin 0.7 AST 25 ALT 27 Alkaline Phosphatase 43 Troponin I High Sens B-Natriuretic Peptide Total Protein 6.7 Albumin 3.4 Globulin 3.3 Albumin/Globulin Ratio 1.0 Procalcitonin Urine Color Urine Appearance Urine pH Ur Specific [place] Urine Protein Urine Glucose (UA) Urine Ketones Urine Blood Urine Nitrite Urine Bilirubin Urine Urobilinogen Ur Leukocyte Esterase Urine WBC (Auto) Urine RBC (Auto) U Hyaline Cast (Auto) U Epithel Cells (Auto) Urine Bacteria (Auto) Nasal Screen MRSA (PCR) Negative Adenovirus (PCR) B. pertussis DNA (PCR) B.parapertussis DNA PCR C. pneumoniae DNA (PCR) Coronavirus OC43 (PCR) Coronavirus HKU1 (PCR) Coronavirus 229E (PCR) SARS-CoV-2 (PCR) Coronavirus NL63 (PCR) Human Metapneumovir PCR Influenza Type A (PCR) Influenza Type B (PCR) Urine Legionella Ag SEE NOTE M. pneumoniae (PCR) Parainfluenza 1 (PCR) Parainfluenza 2 (PCR) Parainfluenza 3 (PCR) Parainfluenza 4 (PCR) RSV (PCR) Entero/Rhino (PCR) Diagnostic Findings Microbiology 08/17/24 18:12 Urine,Straight Cath Urine Culture - Preliminary Enterococcus faecalis Pseudomonas aeruginosa Chest CTA 08/17/24 15:17 CT pulmonary angiogram with IV contrast History: Shortness of breath COMPARISON: 08/15/2024 TECHNIQUE: CT angiography of the chest was performed without IV contrast followed by IV contrast, including 3D post processing CTA image reconstruction. Dose reduction techniques were achieved by using automatic exposure control and/or adjustment of mA and/or kV according to patient size and/or use of iterative reconstruction technique. FINDINGS: Diagnostic quality: Adequate There is no evidence for pulmonary embolism. The heart is markedly enlarged. There is a left chest wall dual-lead AICD. Left atrial appendage Watchman device. Heavy coronary calcifications. There is a small pericardial effusion. There are no abnormally enlarged hilar or mediastinal lymph nodes. The central tracheobronchial tree is clear. Severe emphysema. Diffuse, multifocal areas of groundglass density, and mild scattered patchy nodular centrilobular densities in the periphery of both lung bases. Confluent atelectasis in the lingula in the anterior basilar left lower lobe, are likely postobstructive. There is no pleural effusion. Limited visualized upper abdomen. No destructive osseous changes are seen. IMPRESSION: No evidence for pulmonary embolism. Multifocal patchy areas of groundglass and a few regions of nodular opacity, most consistent with an atypical infectious process. The findings are significantly increased from 08/15/2024. There is also mild superimposed interstitial pulmonary edema. Note that the heart is significantly enlarged. There is a small pericardial effusion. Electronically signed by Rubén Langley 08-17-2024 4:27 PM Chest X-Ray 08/17/24 15:17 EXAM: Radiograph of the Chest 1 View INDICATION: Dyspnea. TECHNIQUE: Frontal view of the chest. COMPARISON: 06/29/2024 FINDINGS: Lungs and pleural spaces: There is underlying chronic interstitial scarring. There is acute superimposed increased interstitial density and groundglass opacity in the right base. Chronic airway thickening left base. No pleural effusion or pneumothorax. Heart: Stable enlargement and pacing device. Mediastinum: Normal contour. Bones/joints: No fracture, erosion or dislocation. Soft tissues: No abnormality noted. No radiopaque foreign body noted. Tubes, lines and devices: Stable Watchman device. Upper abdomen: No abnormality noted. IMPRESSION: 1. Groundglass infiltrate right base concerning for pneumonia which could be infectious or related to aspiration. Correlate clinically. 2. Acute on chronic interstitial changes. Consider pulmonary edema and infectious pneumonitis. ACT 112: Negative or not required by law. Electronically signed by Britany Joseph 08-17-2024 3:44 PM Medications Administered Home Medications Medication Instructions Recorded Confirmed Last Taken fluticasone propionate 50 2 spray intranasal DAILY PRN 04/13/22 08/17/24 03/05/24 mcg/actuation nasal Allergy Symptoms spray,suspension (Flonase Allergy Relief) albuterol sulfate 90 mcg/actuation 2 puff inhalation Q4H PRN 10/25/22 08/17/24 Unknown aerosol inhaler (Ventolin HFA) Shortness Of Breath #3 Inhalers fluticasone fur. 100 mcg-umeclid 1 inh inhalation DAILY #3 Inhalers 12/25/23 08/17/24 04/26/24 62.5 mcg-vilant 25 mcg inhalat.powder (Trelegy Ellipta) aspirin 81 mg chewable tablet 81 mg PO DAILY 02/07/24 08/17/24 04/26/24 levetiracetam 500 mg tablet 500 mg PO BID 02/07/24 08/17/24 04/26/24 (Keppra) multivitamin 1 tab PO DAILY 02/07/24 08/17/24 04/26/24 folic acid 1 mg tablet 1 mg PO BID 04/26/24 08/17/24 04/26/24 hydralazine 50 mg tablet 100 mg (2 x 50 mg) PO TID #90 tabs 05/21/24 08/17/24 Unknown cholecalciferol (vitamin D3) 50 50 mcg PO DAILY 06/29/24 08/17/24 Unknown mcg (2,000 unit) capsule magnesium oxide 400 mg (241.3 mg 400 mg PO QAM #0 tabs 07/01/24 08/17/24 Unknown magnesium) tablet metoprolol succinate 50 mg 50 mg PO DAILY #30 tabs 07/01/24 08/17/24 Unknown tablet,extended release 24 hr (Toprol XL) metformin 500 mg tablet 200 mg PO BID 08/12/24 08/17/24 Unknown prednisone 50 mg tablet 50 mg PO DAILY #3 tabs 08/14/24 08/17/24 Unknown olmesartan 40 mg tablet 40 mg PO DAILY 08/17/24 08/17/24 Unknown Active Medications Generic Name Dose Route Start Last Admin Trade Name Brayanq PRN Reason Stop Dose Admin Aspirin 81 mg 08/18/24 09:00 08/19/24 08:23 Aspirin 81 Mg Chew PO 09/17/24 08:59 81 mg DAILY DOREEN Administration Budesonide 0.5 mg 08/18/24 19:00 08/19/24 07:20 Budesonide 0.5 Mg/2 Ml Vial (Pulmicort) NEB 09/17/24 18:59 0.5 mg BIDR DOREEN Administration Folic Acid 1 mg 08/17/24 21:00 08/19/24 08:19 Folic Acid 1 Mg Tab PO 09/16/24 20:59 1 mg BID DOREEN Administration Formoterol Fumarate 20 mcg 08/18/24 19:00 08/19/24 07:20 Formoterol 20 Mcg/2 Ml Vial NEB 09/17/24 18:59 20 mcg BIDR DOREEN Administration Hydralazine HCl 100 mg 08/17/24 21:00 08/19/24 13:37 Hydralazine Tab 50 Mg Tab PO 09/16/24 20:59 Not Given TID DOREEN Cefepime HCl 2,000 mg in 20 mls @ 5 mls/min 08/18/24 22:00 08/19/24 09:50 Maxipime 2000mg IV 08/23/24 21:59 5 mls/min Q12H DOREEN Administration Protocol Levetiracetam 500 mg 08/17/24 21:00 08/19/24 08:19 Levetiracetam 500 Mg Tab PO 09/16/24 20:59 500 mg BID DOREEN Administration Losartan Potassium 100 mg 08/18/24 09:00 08/19/24 08:19 Losartan Potassium 50 Mg Tab PO 09/17/24 08:59 100 mg DAILY DOREEN Administration Protocol Magnesium Oxide 400 mg 08/18/24 09:00 08/19/24 08:19 Magnesium Oxide 400 Mg Tab PO 09/17/24 08:59 400 mg QAM DOREEN Administration Sodium Chloride 4 ml 08/18/24 19:00 08/19/24 07:20 Sodium Chlor 7% 4 Ml Neb [facility] 09/17/24 18:59 4 ml BIDR DOREEN Administration
--- NOTE | 2024-08-19 22:40 | Electrocardiogram Report ---
Test Reason : Blood Pressure : */* mmHG Vent. Rate : 90 BPM Atrial Rate : 330 BPM P-R Int : * ms QRS Dur : 114 ms QT Int : 428 ms P-R-T Axes : * 56 -2 degrees QTcB Int : 523 ms Ventricular-paced rhythm Abnormal ECG When compared with ECG of 29-Jun-2024 08:56, Vent. rate has decreased by 2 bpm Confirmed by Pedro Hamilton ([id number]) on 08/19/2024 10:40:10 PM Referred By: REFERRED SELF Confirmed By: Pedro Hamilton
[2024-08-20] MEDS: ALBUT/IPRATROP 3MG/0.5MG NEB 3 ML VIAL NEB PRN (00:16)
[2024-08-20] MEDS ORDERED: MELATONIN 3 MG TAB PO PRN (00:56)
--- NOTE | 2024-08-20 06:02 | Electrocardiogram Report ---
Test Reason : Blood Pressure : */* mmHG Vent. Rate : 90 BPM Atrial Rate : 337 BPM P-R Int : * ms QRS Dur : 130 ms QT Int : 494 ms P-R-T Axes : * 79 -8 degrees QTcB Int : 604 ms Poor data quality, interpretation may be adversely affected Ventricular-paced rhythm Abnormal ECG When compared with ECG of 17-Aug-2024 15:18, No significant change was found Confirmed by Pedro Hamilton ([id number]) on 08/20/2024 6:02:48 AM Referred By: REFERRED SELF Confirmed By: Pedro Hamilton
[2024-08-20 07:18] LABS: Basophils # (auto) 0.02 K/uL (0.00-0.20); Basophils % (auto) 0.2 %; Eosinophils # (auto) 0.06 K/uL (0.00-0.50); Eosinophils % (auto) 0.7 %; Hematocrit (blood only) 28.7 % (37.0-47.0); Hemoglobin 9.3 g/dl (12.0-16.0); Immature Granulocytes # (auto) 0.12 K/uL (0.01-0.20); Immature Granulocytes % (auto) 1.5 %; Lymphocytes # (auto) 0.79 K/uL (1.20-3.40); Lymphocytes % (auto) 9.6 %; Mean Corpuscular Hemoglobin 26.2 pg (25.0-34.0); Mean Corpuscular Hgb Conc 32.4 g/dL (32.0-36.0); Mean Corpuscular Volume 80.8 fL (80.0-100.0); Monocytes # (auto) 0.53 K/uL (0.11-0.59); Monocytes % (auto) 6.4 %; Neutrophils % (auto) 81.6 %; Platelet Count 317 K/uL (130-400); RDW Coefficient of Variation 14.7 % (11.5-14.5); RDW Standard Deviation 43.1 fL (36.4-46.3); Red Blood Count 3.55 M/uL (4.20-5.40); White Blood Count 8.22 K/ul (4.8-10.8)
[2024-08-20 07:37] LABS: Albumin Level 3.4 gm/dl (3.4-5.0); BUN Creatinine Ratio 34.2 (10-20); Bilirubin Direct 0.3 mg/dl (0-0.2); Calcium 9.3 mg/dl (8.6-10.3); Creatinine Clr Calc Pharmacy 56.1 ml/min; Magnesium 1.9 mg/dl (1.7-2.4); Potassium 3.7 mmol/L (3.5-5.1); Total Protein 6.6 gm/dl (6.0-8.3)
[2024-08-20 07:54] LABS: Ferritin 38.6 ng/ml (8-388)
[2024-08-20 08:00] LABS: Folate (Folic Acid),Ser orPlas > 22.30 ng/ml (>5.38)
[2024-08-20 08:01] LABS: Vitamin B12 382 pg/ml (180-914)
[2024-08-20 08:26] LABS: Base Excess VBG 3.6 mEq/L; HCO3 VBG 28 mmol/L; Oxygen Saturation VBG 62.7 %; PCO2 VBG 39 mmHg (38-50); PO2 VBG 40 mmHg; pH VBG 7.46 (7.36-7.41)
--- NOTE | 2024-08-20 08:41 | Hospitalist Progress Note ---
Date of Service August 20, 2024 Assessment & Plan (1) Acute hypoxemic respiratory failure: Plan: Suspected secondary to pneumonia and some component of acute on chronic HFpEF- with increasing BNP and CT with possible pulmonary edema although no leg edema Pneumonia is worsening on CT here compared to CT from 08/15 as an outpatient with increasing nodular opacities Consult pulmonology appreciated Procalcitonin negative therefore antibiotics deferred on admission, but have since started cefepime. She is allergic to tetracycline as well as moxifloxacin and her QT is prolonged thus prohibiting addition of azithromycin or levofloxacin or doxycycline for atypicals. However, her bio fire is negative for mycoplasma which is reassuring. Legionella urine antigen negative Appreciate ID consult-initially recommended continue cefepime only for now and if worsens or decompensates, consider bronchoscopy and adding Flagyl versus switching to meropenem. Could also consider desensitization to doxycycline if concern for atypical pneumonia. However, with worsening confusion on 08/20, switch cefepime to meropenem Check sputum culture, Legionella culture if can give sputum sample Continue to wean off O2 as able-currently on 4L NC which is an improvement Continue bronchodilator nebs, continue inhaled fluticasone, umeclidinium/vilanterol Received IV diuresis for 2 days and have since converted to p.o. Lasix 20 mg daily on 08/19 Continue Afrin and humidification to O2 for nosebleed secondary to nasal cannula (2) Acute encephalopathy: Plan: Patient with worsening confusion since hospitalization as per family members. She does have baseline moderate expressive aphasia and some cognitive deficits. She did have a fall in the a.m. of 08/20-repeat head CT negative for hemorrhage, no new focal neurodeficits Cefepime to be switched to meropenem in case cefepime causing worsening delirium Continue supportive care, promote good sleep-wake cycles This may be hospital delirium Treating infection of pneumonia and likely asymptomatic bacteriuria with antibiotics Continue supplemental O2 to keep pulse ox greater than 90% Remove Arevalo catheter (3) Pneumonia: Plan: With increasing nodular opacities and groundglass opacities diffusely on CT, treatment noted as above (4) Fall: Plan: Got out of bed on her own on 08/20 a.m. and fell and struck her head on the metal register as witnessed by environmental services Has a very minor abrasion on left upper back otherwise no injuries CT head negative Follow clinically (5) UTI (urinary tract infection): Plan: May be asymptomatic bacteriuria but urine culture with Enterococcus faecalis and Pseudomonas aeruginosa Discussed with ID-treating anyway with meropenem (6) Iron deficiency anemia: Plan: Hemoglobin 9.3, iron studies show transferrin saturation very low at 5% B12 and folate normal Start oral iron supplement Does have hematuria microscopic-follow as an outpatient Consider GI workup if not done recently (7) Acute heart failure with preserved ejection fraction: Plan: Could possibly be due to previous salt tablets No significant leg edema to suggest right sided heart failure Echo from outpatient in 07/2024 shows EF 60-64%, moderate LVH, small posterior loculated pericardial effusion without tamponade Repeat echo here with preserved EF, no significant valvular disease UA with only trace protein, no prior liver problems and LFTs normal Diuresed over 3 L net negative. Converted IV Lasix to p.o. 20 mg daily on 08/19 Strict I&Os, daily weights, low-sodium diet BNP normal Plan Other medical conditions: Prolonged QT interval-QT difficult to interpret on EKG here even on repeat on 08/18 which shows paced rhythm atrial flutter. Appreciate cardiology consultation-historically when in sinus rhythm, she also had prolonged QT, hence they recommend avoiding QT prolonging agents HTN -BPs normal, continue home hydralazine, losartan, Toprol-XL, and now p.o. Lasix pAfib/flutter- presence of Watchman hence no anticoagulation, permanent, appreciate cardiology consultation, continue Toprol XL Hyponatremia-sodium 130 on arrival and now improved to 13-1332 with diuresis- follow BMP, continue diuresis JG - CPAP HS Recent hemorrhagic stroke-has repeat head CT as an outpatient scheduled for 09/05, follows with neurology. Repeat head CT here after fall in 08/20 negative for acute VTE Prophylaxis - SCDs, deferred chemical due to recurrent hemorrhagic strokes Disposition -continued stay PCU Admission and Anticipated Discharge Date Admission Date: August 17, 2024 Subjective Patient had a fall this morning and hit her head off the register-witnessed by environmental specialist. She denies pain in the head or pain anywhere else. She remains on 4 L nasal cannula. I discussed her care with her son at the bedside later in the day on a second round. Patient son reports that she is definitely more confused than her baseline and not as interactive. The patient is able to answer questions for me mostly with yes and no answers. Telemetry with atrial fibrillation x 12 hours, converted back to normal sinus rhythm with PACs and paced rhythm this morning with rates in the 60s to 80s I discussed her care with infectious disease, pulmonology Physical Exam Constitutional: well developed; no acute distress Respiratory: + tachypneic Auscultation: + crackles (Bibasilar); no rhonchi and no wheezes Cardiovascular: Rate/Rhythm: regular rate and regular rhythm Extremities: no edema Gastrointestinal (Abdomen): normal bowel sounds, soft, nontender, no hepatosplenomegaly Psychiatric: Orientation: alert, oriented to person and oriented to place; + not oriented to time Results & Data Results & Data Vital Signs (Past 12 Hours) Vital Signs Temp Pulse Pulse Resp BP Pulse Ox O2 Del Method 08/20/24 08:09 36.5 C 80 22 133/56 L 94 Nasal Cannula 08/20/24 07:24 72 20 92 Nasal Cannula 08/20/24 03:23 36.3 C L 84 16 157/71 H 91 Nasal Cannula 08/20/24 00:18 64 22 93 Nasal Cannula 08/19/24 23:20 85 24 97 08/19/24 22:49 36.6 C 68 16 120/67 91 Nasal Cannula 08/19/24 22:11 65 124/64 08/19/24 21:00 Nasal Cannula O2 Flow Rate 08/20/24 08:09 4 08/20/24 07:24 4 08/20/24 03:23 5 08/20/24 00:18 4 08/19/24 23:20 4 08/19/24 22:49 5 08/19/24 22:11 08/19/24 21:00 4 Laboratory Results CBC, BMP, B12, folate, iron studies, magnesium, LFTs, BNP, procalcitonin, VBG, urine culture reviewed PG Care Time/CCT Total # of Minutes Spent Total Time Spent with Patient: Total time spent is greater than 50% in coordination of care (as documented) at patient's floor/unit and/or counseling patient: Coding Level of Care Code 32913 SUB INP/OBS CARE 3/50MIN Diagnoses Acute hypoxemic respiratory failure J96.01 Acute encephalopathy G93.40 Pneumonia J18.9 Fall, initial encounter W19.XXXA Encounter type: initial encounter Urinary tract infection without hematuria, site unspecified N39.0 Hematuria presence: without hematuria Urinary tract infection type: site unspecified Iron deficiency anemia D50.9 Acute heart failure with preserved ejection fraction I50.31 (4) Fall Encounter type: initial encounter Qualified Code(s): W19.XXXA - Unspecified fall, initial encounter (5) UTI (urinary tract infection) Hematuria presence: without hematuria Urinary tract infection type: site unspecified Qualified Code(s): N39.0 - Urinary tract infection, site not specified
--- NOTE | 2024-08-20 08:48 | CT Scan Report ---
CT head/brain wo con CLINICAL HISTORY: fall with head trauma, h/o SAH Technique: Contiguous axial CT images of the head were acquired from the base of the skull to the adwoa mere without intravenous contrast administration. Images were viewed in brain, subdural and bone windo ws. Automated dose lowering techniques and/or adjustment according to patient size were utilized for this exam. Comparison: None available at the time of this dictation. Findings: Exam is limited by patient motion. Focal encephalomalacia in the left parietal lobe is unchanged. No acute abnormality and in particular no evidence of intracranial hemorrhage. Imaged portions of the paranasal sinuses and mastoid air cells are clear. The orbits appear normal. There are no acute fractures of the calvaria or scalp swelling. Impression: No acute abnormality and in particular no intracranial hemorrhage. ACT 112: Negative or not required by law. Electronically signed by: Gagandeep Fernandez M.D. 08/20/2024 8:47 AM
[2024-08-20] MEDS: METOPROLOL SUCC 25MG EXT REL TAB PO SCH (08:54)
[2024-08-20] MEDS: FUROSEMIDE 20 MG TAB PO SCH (08:54)
--- NOTE | 2024-08-20 09:08 | Cardiology Progress Note ---
Date of Service August 20, 2024 Assessment & Plan (1) Right lower lobe pneumonia: (2) Atrial flutter: (3) Cardiac pacemaker in situ: (4) S/P AV martell ablation: (5) Abnormal echocardiogram: (6) Prolonged QT interval: Plan Right lower lobe pneumonia. - As per Hospitalist. Prolonged QT interval - Avoid QTc prolonging medications if possible Pericardial effusion. - Echo on 08/18/2024 with trace pericardial fluid adjacent to the right atrium and right ventricle on subcostal views, without tamponade HFpEF. Hyponatremia/SIADH. - Prescribed IV furosemide 40 mg/day since admission. - Hyponatremia improved. - Volume status appears normovolemic to minimally hypervolemic. - Arevalo catheter remains in place. - Consider transitioning to oral furosemide 20 mg/day for SIADH, fluid retention, hypertension. Atrial flutter/fibrillation. 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 [id number] Score 7 points. - Status post January 30, 2024 31 mm Watchman implantation - March 14, 2024 MINH with a well seated device without evidence of perivalvular leak or thrombus; study terminated early due to excessive secretions - Status post March 05, 2024 radiofrequency ablation of the AV junction. 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 - Base rate decreased from 90 bpm to 80 bpm on 08/18/2024 by Rothman Brilliandeer Looper Hypertension - Prescribed losartan, hydralazine, and metoprolol succinate 50 mg/day which was prescribed when hospitalized with stroke like symptoms in June 2024. - Patient with past poor tolerance to beta-kell therapy when hospitalized in February 2024 - See above. Abnormal Echocardiogram - Echo on 07/15/2024 with small posterior loculated pericardial effusion, moderately LVH, hyperechogenic myocardium, grade I diastolic dysfunction. - ? Infiltrative process. - Outpatient Cardiac MRI Please contact with any cardiac questions or concerns. 08/20/2024: Pneumonia -Continued treatment as per primary team, pulmonary and infectious disease Prolonged QT interval: -Continue to refrain from use of Prolonging medications if possible. HFpEF/Hyponatremia/SIDAH -Hyponatremia stable when compared to yesterday (132) -Patient appear euvolemic on exam today -Continue furosemide 20mg daily Atrial fibrillation/flutter/ Tachy-Isacc syndrome. -No episodes of A-fib overnight. -s/p Rothman PPM February 2024. -history of ischemic CVA with hemorrhagic conversion in november 2023, patient has since undergone watchman implantation January 2024 -history of prior RFA of AV junction February 2024 HTN: -Well controlled today -Continue losartan, hydralizine and reduced dose of Toprol xl. Abnormal Echo -small posterior loculated pericardial effusion, moderate LVH, possible infiltrative process, consider cardiac MRI outpatient pending patient's clinical path. Case has been discussed with Dr. Franklin. Further recommendations regarding plan of care as per his assessment. I spent a total of 30 minutes on the date of service in preparation, delivery, documentation of the care provided to the patient excluding any time spent in the performance of separately billed services. [facility] Cardiology [facility] Admission and Anticipated Discharge Date Admission Date: August 17, 2024 Supervising Physician Co-Signing Physician Notes Attending attestation: Case reviewed with the advanced practitioner. I have personally performed a history and physical examination on the patient. I have reviewed the advanced practitioner's documentation on the date of service referenced in note, and I agree with, and take responsibility for the plan of care. I spent a total of 20 minutes coordinating, documenting, and providing care for this patient excluding time spent in the performance of separately billed services or time spent by another provider. Homer Franklin, Subjective 08/20/2024: Patient seen and examined in follow up today. Feeling fair. She denies any chest pain, pressure or palpitations. continues with increased work of breathing although unchanged. Patient did sustain a mechanical fall this morning. She had gotten herself out of bed and was standing in the room, when she states that her legs had become weak resulting in her fall. Patient did not strike her head. She was taken down for imaging post fall. Labs, vitals, diagnostics, telemetry and documentation reviewed. Telemetry reviewed showing paced/SR with occasional PAC's. Rates 60-70 bpm There was a brief notation of atrial fibrillation noted on yesterday's telemetry, but none overnight and none observed today. Review of Systems Review of Systems: All systems reviewed & are unremarkable except as noted in HPI & below Physical Exam Constitutional: + ill appearing, + thin and + cachectic; no acute distress Neck: normal visual inspection and trachea midline Respiratory: normal respiratory effort; no respiratory distress Auscultation: + wheezes (faint exp wheezes in bilateral bases ); no crackles, no rales and no rhonchi Cardiovascular: RRR, no murmur, no edema Heart Sounds: normal S1 and normal S2; no murmur Vessels: dorsalis pedis pulses present; no JVD Extremities: no edema Skin: no rashes, warm and dry Results & Data Vital Signs (Past 12 Hours) Vital Signs Temp Pulse Pulse Resp BP Pulse Ox O2 Del Method 08/20/24 08:09 36.5 C 80 22 133/56 L 94 Nasal Cannula 08/20/24 07:24 72 20 92 Nasal Cannula 08/20/24 03:23 36.3 C L 84 16 157/71 H 91 Nasal Cannula 08/20/24 00:18 64 22 93 Nasal Cannula 08/19/24 23:20 85 24 97 08/19/24 22:49 36.6 C 68 16 120/67 91 Nasal Cannula 08/19/24 22:11 65 124/64 O2 Flow Rate 08/20/24 08:09 4 08/20/24 07:24 4 08/20/24 03:23 5 08/20/24 00:18 4 08/19/24 23:20 4 08/19/24 22:49 5 08/19/24 22:11 Laboratory Results Cardiac Enzymes 08/20/24 08/20/24 Range/Units 07:01 08:10 AST 25 (13-39) U/L B-Natriuretic Peptide 49 (0-100) pg/ml Coagulation 08/20/24 Range/Units 08:10 B-Natriuretic Peptide 49 (0-100) pg/ml CBC 08/20/24 Range/Units 07:01 WBC 8.22 (4.8-10.8) K/ul RBC 3.55 L (4.20-5.40) M/uL Hgb 9.3 L (12.0-16.0) g/dl Hct 28.7 L (37.0-47.0) % Plt Count 317 (130-400) K/uL Neut # (Auto) 6.70 H (1.40-6.50) K/uL Lymph # (Auto) 0.79 L (1.20-3.40) K/uL [place] # (Auto) 0.53 (0.11-0.59) K/uL Eos # (Auto) 0.06 (0.00-0.50) K/uL Baso # (Auto) 0.02 (0.00-0.20) K/uL Comprehensive Metabolic Panel 08/20/24 Range/Units 07:01 Sodium 132 L (136-145) mmol/L Potassium 3.7 (3.5-5.1) mmol/L Chloride 98 (98-107) mmol/L Carbon Dioxide 27 (21-32) mmol/L BUN 26 H (6-23) mg/dl Creatinine 0.76 (0.6-1.2) mg/dl Glucose 102 H (70-99(Fasting)) mg/dl Calcium 9.3 (8.6-10.3) mg/dl Direct Bilirubin 0.3 H (0-0.2) mg/dl AST 25 (13-39) U/L ALT 28 (7-52) U/L Alkaline Phosphatase 44 (34-104) U/L Total Protein 6.6 (6.0-8.3) gm/dl Albumin 3.4 (3.4-5.0) gm/dl Intake and Output 08/19/24 08/20/24 08/20/24 22:59 06:59 14:59 Other: Other Intake Source Sips # Unmeasured Voids 1 Weight 61.7 kg Weight Measurement Method Built in [facility]
[2024-08-20] MEDS: DAPTOmycin 325 MG in SYRINGE 0 ML IV SCH (09:40)
--- NOTE | 2024-08-20 10:39 | Pulmonology Progress Note ---
Date of Service August 20, 2024 Assessment & Plan (1) Pneumonia: (2) Prolonged QT interval: (3) Pulmonary edema: (4) Elevated brain natriuretic peptide (BNP) level: (5) Tachypnea: (6) Hypoxia: (7) Obstructive sleep apnea: Plan 74-year-old female with a complex past medical history including myotonic dystrophy, hemorrhagic strokes, atrial fibrillation, hypertension, emphysematous lung disease and neuromuscular weakness presenting to the hospital for dyspnea and increased hypoxemia. CT chest findings suggestive of aspiration pneumonitis versus pneumonia. No sputum cultures to date. Continue hypertonic saline twice daily. Encouraged to use of flutter valve and incentive spirometry for pulmonary toileting. Nebulized formoterol and budesonide while inpatient. Appreciate ID consult. Unfortunately, the patient appears to be somewhat confused today. She apparentl y was so prior to her fall. Head CT was unremarkable which is encouraging in a patient with ICH x 2. Question contribution of cefepime for her confusion as well. Reviewing her urine cultures, patient growing Enterococcus and pseudomonas. Consider changing to Meropenem per sensitivities. Defer to enterococcus treatment to ID. Thankfully, from a pulmonary perspective, the patient appears to be proving. She is saturating 95% on 3 L at this time. Continue to encourage pulmonary toileting and out of bed to chair as tolerated. Certainly would be cautious given the patient's recent fall. No need for bronchoscopic evaluation currently. Will continue to evaluate. TELEVISION MECHANIC/video swallow evaluation reviewed. Recommend utilizing CPAP given her history of JG. Wean supplemental oxygen as able. Will likely need to step prior to discharge and a nocturnal O2 study on CPAP when she is closer to discharge. Continue to maintain euvolemia. Thank you for allowing us to participate in the care of this pleasant patient. Admission and Anticipated Discharge Date Admission Date: August 17, 2024 Subjective Patient seen and evaluated at bedside. She reportedly had a fall around 8 AM. The fall was apparently witnessed. She underwent head CT which was unremarkable. The patient apparently was anxious last night. She is confused today on exam. Review of Systems Review of Systems: As per HPI Physical Exam Physical Exam: VITAL SIGNS Vital signs and nursing notes were reviewed. GENERAL 74-year-old female appearing her stated age who is in no acute distress. NOSE Midline and without cyanosis. MOUTH/OROPHARYNX Without perioral cyanosis. LUNGS Chest wall evaluation demonstrates normal chest wall A:P diameter. Auscultation reveals bibasilar rales. CARDIAC RRR with S1/S2. No murmur, rubs, or gallops appreciated. EXTREMITIES Nail clubbing not present. No peripheral cyanosis. No pretibial edema present. +3/5 radial palpated throughout. PSYCH A&Ox3 and cooperates fully with examiner. Pt is very pleasant and interacts well with examiner. Results & Data Results & Data Vital Signs (Past 12 Hours) Vital Signs Temp Pulse Pulse Resp BP Pulse Ox O2 Del Method 08/20/24 08:15 Nasal Cannula 08/20/24 08:09 36.5 C 80 22 133/56 L 94 Nasal Cannula 08/20/24 07:24 72 20 92 Nasal Cannula 08/20/24 03:23 36.3 C L 84 16 157/71 H 91 Nasal Cannula 08/20/24 00:18 64 22 93 Nasal Cannula 08/19/24 23:20 85 24 97 08/19/24 22:49 36.6 C 68 16 120/67 91 Nasal Cannula O2 Flow Rate 08/20/24 08:15 4 08/20/24 08:09 4 08/20/24 07:24 4 08/20/24 03:23 5 08/20/24 00:18 4 08/19/24 23:20 4 08/19/24 22:49 5 PG Care Time/CCT Total # of Minutes Spent Total Time Spent with Patient: Total time spent is greater than 50% in coordination of care (as documented) at patient's floor/unit and/or counseling patient: Coding Level of Care Code 92342 SUB INP/OBS CARE 2/35MIN Diagnoses Pneumonia J18.9 Prolonged QT interval R94.31 Pulmonary edema J81.1 Elevated brain natriuretic peptide (BNP) level R79.89 Tachypnea R06.82 Hypoxia R09.02 Obstructive sleep apnea G47.33
--- NOTE | 2024-08-20 10:49 | Fluoroscopy Report ---
FL video swallow CLINICAL HISTORY: 74 years-old Female with assess for aspiration. Dysphagia. TECHNIQUE: Video fluoroscopic evaluation of swallowing was performed in the AP and lateral projection s by the speech pathology staff. The patient is fed varying consistencies of barium. FLUOROSCOPY TIME: 1.26 minutes. 2602 images were obtained. 6.81 mGy COMPARISON STUDY: CT chest 08/17/2024 FINDINGS: There is normal hyoid excursion and epiglottic deflection. No significant penetration or as piration identified. Swallowing function is within normal limits however there is mild esophageal dys motility. IMPRESSION: 1. No aspiration identified. 2. Please see the speech pathologist report for detailed findings and recommendations. ACT 112: Negative or not required by law. Electronically signed by: Maxwell Romero M.D. 08/20/2024 10:48 AM
--- NOTE | 2024-08-20 11:29 | XRay Report ---
XR chest 1V portable CLINICAL HISTORY: follow up pna TECHNIQUE: Single frontal radiograph of the chest was obtained. Comparison: Comparison is made to chest radiograph 08/17/2024 and CTA chest 08/17/2024 FINDINGS: An implanted pacemaker is seen. Cardiomegaly is noted. The aortic arch is calcified. Right lower lung airspace opacity is again seen with interstitial changes. No evidence of pleural effusion or pneumot horax. IMPRESSION: 1. Stable appearance of right lower lobe airspace opacities concerning for pneumonia. 2. Emphysema and interstitial thickening. ACT 112: Negative or not required by law. Electronically signed by: Gagandeep Fernandez M.D. 08/20/2024 11:28 AM
--- NOTE | 2024-08-20 13:57 | Infectious Disease Progress Nt ---
Date of Service August 20, 2024 Assessment & Plan (1) Prolonged QT interval: (2) Pneumonia: Plan This is a 74-year-old female with a past medical history of myotonic dystrophy, atrial fibrillation, CVAs, hypertension, emphysematous lung disease, neuromuscular weakness who presents to the ED with shortness of breath and hypoxia. She is on oxygen at home as needed. She denies any fevers, chills, nausea, vomiting. Denies any aspiration events. Sats at home were in the 70s. In the ED temperature 36.4, pulse 90, RR 34, blood pressure 170/96, O2 sat 78% on room air-->95% on 5l . Labs: WBC 8.46, hemoglobin 10.9, hematocrit 33.7, platelets 389, BUN 18, creatinine 0.77. Respiratory viral panel negative. Urine Legionella antigen negative, MRSA screen negative.. Procalcitonin 0.06. CTA chest with no pulmonary embolism; + groundglass opacities and nodular densities which may represent infectious/inflammatory airway disease. Repeat imaging shows multifocal patchy areas of groundglass and a few regions of nodular opacities most consistent with an atypical infectious process. Findings were increased from 05/2025. There is mild superimposed interstitial pulmonary edema. Chest x-ray shows no glass infiltrate on the right base concerning for pneumonia which could be infectious or related to aspiration. There is acute on chronic interstitial changes ; c/f pulmonary edema or infectious pneumonitis. TTE with trace pericardial effuion. She is currently on cefepime ( started yesterday 08/18). ID consulted for possible atypical pneumonia as patient is unable to receive azithromycin and doxycycline. Per her chart, she documented allergies listed: Itching/yeast infections with moxifloxacin, itching with tetracyclines, rash with penicillins, anaphylaxis with sulfa. When asked if she remembers exactly what occurs when she received these antibiotics, she does not remember. She is not certain if these allergies are accurate. An EKG shows an prolonged QTc; 604 on 08/18 and 523 on 08/17. Pulmonology is following: There are no plans for bronchoscopy given underlying comorbidities. She is pending speech therapy evaluation. Micro UCx 08/17 >100K E faecalis ( amp S), Pseudomonas Aer Abx Cefepime 08/18-ongoing # Acute hypoxic respiratory failure # Pneumonia vs Pneumonitis # Abx allergies - PCN : rash -Tetracycline: itching -Moxifloxacin: itching -Sulfa- swelling # Prolonged QTC # Myotonic dystrophy #PPM in place #Asymptomatic bacteriuria Discussion- Procalcitonin is low at 0.06. She is afebrile. unclear if presentation is 2/2 pneumonia vs pneumonitis. There is c/f atypical infection and aspiration on imagin. Urine legionella ag negative. Mycoplasma pna and Chlamydia pna pcr negative ( on RVP). MRSA screen negative She is has documented allergies as per above, but is unclear to the reactions. She has psa and e feacalis in urine. Asymptomatic for UTI. Feel over night now with increased confusion. Concern for Cefepime effects Recommendations; Dced Cefepime given increased confusion and started Meropenem for PNA coverage. This will also cover E feacalis although no coverage needed with asymptomatic bacteriuria. If continued concern for atypical pneumonia, can consider desensitization to doxycycline. Would hold azithromycin or floroquinolones for now as QTC is prolonged If worsens, decompensates, may need to reconsider bronchoscopy. If able to produce sputum; send for bacterial routine culture AND legionella culture. will be givne hypertonic saline. ID will continue to follow. Efraín Toth MD, MPH Infectious Disease ID Connect [facility], ID Division Call [phone] with questions Admission and Anticipated Discharge Date Admission Date: August 17, 2024 Subjective This patient recommendation is based on a telemedicine consult request which was completed asynchronously through chart review and information provided by the primary physician. The patient was not seen or examined today. The evaluation is consultative in nature and all patient care and treatment decisions can either be accepted or rejected by the patient's primary hospital-based treating physi sharda using their own independent medical judgment for their patient. Time Spent Reviewing Chart: 21 - 30 minutes sp fall last night more confused today on 2-3 L NC Results & Data Vital Signs (Past 12 Hours) Vital Signs Temp Pulse Resp BP Pulse Ox O2 Del Method O2 Flow Rate 08/20/24 12:27 37.1 C 78 20 129/69 93 Nasal Cannula 2 08/20/24 08:15 Nasal Cannula 4 08/20/24 08:09 36.5 C 80 22 133/56 L 94 Nasal Cannula 4 08/20/24 07:24 72 20 92 Nasal Cannula 4 08/20/24 03:23 36.3 C L 84 16 157/71 H 91 Nasal Cannula 5 Laboratory Results Short CBC 08/20/24 Range/Units 07:01 WBC 8.22 (4.8-10.8) K/ul Hgb 9.3 L (12.0-16.0) g/dl Hct 28.7 L (37.0-47.0) % Plt Count 317 (130-400) K/uL BMP 08/20/24 07:01 Sodium 132 L Potassium 3.7 Chloride 98 Carbon Dioxide 27 BUN 26 H Creatinine 0.76 Glucose 102 H Calcium 9.3 Liver Function 08/20/24 Range/Units 07:01 Total Bilirubin 1.0 (0.2-1.0) mg/dl Direct Bilirubin 0.3 H (0-0.2) mg/dl AST 25 (13-39) U/L ALT 28 (7-52) U/L Alkaline Phosphatase 44 (34-104) U/L Albumin 3.4 (3.4-5.0) gm/dl Diagnostic Findings Microbiology 08/17/24 18:12 Urine,Straight Cath Urine Culture - Final Enterococcus faecalis Pseudomonas aeruginosa Head CT 08/20/24 08:10 CT head/brain wo con CLINICAL HISTORY: fall with head trauma, h/o SAH Technique: Contiguous axial CT images of the head were acquired from the base of the skull to the vertex without intravenous contrast administration. Images were viewed in brain, subdural and bone windows. Automated dose lowering techniques and/or adjustment according to patient size were utilized for this exam. Comparison: None available at the time of this dictation. Findings: Exam is limited by patient motion. Focal encephalomalacia in the left parietal lobe is unchanged. No acute abnormality and in particular no evidence of intracranial hemorrhage. Imaged portions of the paranasal sinuses and mastoid air cells are clear. The orbits appear normal. There are no acute fractures of the calvaria or scalp swelling. Impression: No acute abnormality and in particular no intracranial hemorrhage. ACT 112: Negative or not required by law. Electronically signed by: Gagandeep Fernandez M.D. 08/20/2024 8:47 AM Videofluoroscopic Swallow 08/20/24 09:30 FL video swallow CLINICAL HISTORY: 74 years-old Female with assess for aspiration. Dysphagia. TECHNIQUE: Video fluoroscopic evaluation of swallowing was performed in the AP and lateral projections by the speech pathology staff. The patient is fed varying consistencies of barium. FLUOROSCOPY TIME: 1.26 minutes. 2602 images were obtained. 6.81 mGy COMPARISON STUDY: CT chest 08/17/2024 FINDINGS: There is normal hyoid excursion and epiglottic deflection. No significant penetration or aspiration identified. Swallowing function is within normal limits however there is mild esophageal dysmotility. IMPRESSION: 1. No aspiration identified. 2. Please see the speech pathologist report for detailed findings and recommendations. ACT 112: Negative or not required by law. Electronically signed by: Maxwell Romero M.D. 08/20/2024 10:48 AM Chest X-Ray 08/20/24 11:00 XR chest 1V portable CLINICAL HISTORY: follow up pna TECHNIQUE: Single frontal radiograph of the chest was obtained. Comparison: Comparison is made to chest radiograph 08/17/2024 and CTA chest 08/17/2024 FINDINGS: An implanted pacemaker is seen. Cardiomegaly is noted. The aortic arch is calcified. Right lower lung airspace opacity is again seen with interstitial changes. No evidence of pleural effusion or pneumothorax. IMPRESSION: 1. Stable appearance of right lower lobe airspace opacities concerning for pneumonia. 2. Emphysema and interstitial thickening. ACT 112: Negative or not required by law. Electronically signed by: Gagandeep Fernandez M.D. 08/20/2024 11:28 AM
[2024-08-20] MEDS ORDERED: MEROPENEM 2,000 MG in SODIUM CHLORIDE 0.9% 60 ML IV SCH (14:00)
[2024-08-20] MEDS: FERROUS SULFATE 325 MG TAB PO SCH (16:03)
[2024-08-20] MEDS: MEROPENEM 500 MG in SYRINGE 0 ML IV SCH (16:03)
[2024-08-20] MEDS ORDERED: ACETAMINOPHEN 325 MG TAB PO PRN (19:44)
[2024-08-20] MEDS: ACETAMINOPHEN 1,000 MG/100 ML VIAL IV PRN (21:00)
--- NOTE | 2024-08-21 08:58 | Cardiology Progress Note ---
Date of Service August 21, 2024 Assessment & Plan (1) Right lower lobe pneumonia: (2) Atrial flutter: (3) Cardiac pacemaker in situ: (4) S/P AV martell ablation: (5) Abnormal echocardiogram: (6) Prolonged QT interval: Plan Right lower lobe pneumonia. - As per Hospitalist. Prolonged QT interval - Avoid QTc prolonging medications if possible Pericardial effusion. - Echo on 08/18/2024 with trace pericardial fluid adjacent to the right atrium and right ventricle on subcostal views, without tamponade HFpEF. Hyponatremia/SIADH. - Prescribed IV furosemide 40 mg/day since admission. - Hyponatremia improved. - Volume status appears normovolemic to minimally hypervolemic. - Arevalo catheter remains in place. - Consider transitioning to oral furosemide 20 mg/day for SIADH, fluid retention, hypertension. Atrial flutter/fibrillation. 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 [id number] Score 7 points. - Status post January 30, 2024 31 mm Watchman implantation - March 14, 2024 MINH with a well seated device without evidence of perivalvular leak or thrombus; study terminated early due to excessive secretions - Status post March 05, 2024 radiofrequency ablation of the AV junction. 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 - Base rate decreased from 90 bpm to 80 bpm on 08/18/2024 by Rothman [employer] Advisor Hypertension - Prescribed losartan, hydralazine, and metoprolol succinate 50 mg/day which was prescribed when hospitalized with stroke like symptoms in June 2024. - Patient with past poor tolerance to beta-kell therapy when hospitalized in February 2024 - See above. Abnormal Echocardiogram - Echo on 07/15/2024 with small posterior loculated pericardial effusion, moderately LVH, hyperechogenic myocardium, grade I diastolic dysfunction. - ? Infiltrative process. - Outpatient Cardiac MRI Please contact with any cardiac questions or concerns. 08/20/2024: Pneumonia -Continued treatment as per primary team, pulmonary and infectious disease Prolonged QT interval: -Continue to refrain from use of Prolonging medications if possible. HFpEF/Hyponatremia/SIDAH -Hyponatremia stable when compared to yesterday (132) -Patient appear euvolemic on exam today -Continue furosemide 20mg daily Atrial fibrillation/flutter/ Tachy-Isacc syndrome. -No episodes of A-fib overnight. -s/p Rothman PPM February 2024. -history of ischemic CVA with hemorrhagic conversion in november 2023, patient has since undergone watchman implantation January 2024 -history of prior RFA of AV junction February 2024 HTN: -Well controlled today -Continue losartan, hydralizine and reduced dose of Toprol xl. Abnormal Echo -small posterior loculated pericardial effusion, moderate LVH, possible infiltrative process, consider cardiac MRI outpatient pending patient's clinical path. Case has been discussed with Dr. Franklin. Further recommendations regarding plan of care as per his assessment. 08/21/2024: Acute mental Status change: -Etiology unclear, patient was taken for repeat head CT with no acute findings -? infection -? response to new antibiotics started yesterday -Continued management per primary team. Pneumonia -Continued treatment as per primary team, pulmonary and infectious disease Prolonged QT interval: -Continue to refrain from use of Prolonging medications if possible. HFpEF/Hyponatremia/SIDAH -Hyponatremia stable when compared to yesterday (132) -Patient appear euvolemic on exam today -Continue furosemide 20mg daily Atrial fibrillation/flutter/ Tachy-Isacc syndrome. -s/p Rothman PPM February 2024. -history of ischemic CVA with hemorrhagic conversion in november 2023, patient has since undergone watchman implantation January 2024 -history of prior RFA of AV junction February 2024 HTN: -Well controlled today -Continue losartan, hydralazine. Stop Toprol xl Abnormal Echo -small posterior loculated pericardial effusion, moderate LVH, possible infiltrative process, consider cardiac MRI outpatient pending patient's clinical path. I spent a total of 30 minutes on the date of service in preparation, delivery, documentation of the care provided to the patient excluding any time spent in the performance of separately billed services. [facility] Admission and Anticipated Discharge Date Admission Date: August 17, 2024 Supervising Physician Co-Signing Physician Notes Attending attestation: Case reviewed with the advanced practitioner. I have personally performed a history and physical examination on the patient. I have reviewed the advanced practitioner's documentation on the date of service referenced in note, and I agree with, and take responsibility for the plan of care. Patient had an episode of atrial fibrillation yesterday but is now back in sinus rhythm atrial sensed, ventricular paced. Stat CT of the brain without acute intracranial pathology today. Discontinue metoprolol with thoughts that perhaps it is worsening her pulmonary status. I spent a total of 20 minutes coordinating, documenting, and providing care for this patient excluding time spent in the performance of separately billed services or time spent by another provider. Homer Franklin DO Subjective 08/21/2024: Patient seen and examined in follow up today. She is notably lethargic in comparison to yesterday. She arouses to verbal stimuli, but does not answer any questions. Patient's nurse is at bedside and reports that staff had noticed some increased confusion this morning with increased lethargy. No repeat falls since yesterday. The only change for patient is the change in antibiotics. She has just returned from a CT head which again shows no acute findings. Labs, vitals, diagnostics, telemetry and documentation reviewed. Telemetry reviewed showing A sensed, V paced rhythm rates in the 70's. No acute events overnight Review of Systems Review of Systems: Unobtainable due to cognitive status lethargic and does not answer questions, arouses to verbal stimuli Physical Exam Constitutional: + ill appearing, + thin and + cachectic; no acute distress Neck: normal visual inspection and trachea midline Respiratory: normal respiratory effort; no respiratory distress Auscultation: + wheezes (faint exp wheezes in bilateral bases ); no crackles, no rales and no rhonchi Cardiovascular: RRR, no murmur, no edema Heart Sounds: normal S1 and normal S2; no murmur Vessels: dorsalis pedis pulses present; no JVD Extremities: no edema Skin: no rashes, warm and dry Psychiatric: Orientation: + not alert and + not oriented x 3 lethargic, does not answer questions, but responds to her name Results & Data Vital Signs (Past 12 Hours) Vital Signs Temp Pulse Pulse Resp BP Pulse Ox O2 Del Method 08/21/24 08:32 36.9 C 76 22 135/45 L 92 Nasal Cannula 08/21/24 07:36 76 16 96 Nasal Cannula 08/21/24 03:54 37.0 C 88 18 133/78 96 CPAP 08/21/24 02:57 84 20 93 08/21/24 00:07 Nasal Cannula, CPAP 08/21/24 00:06 90 08/20/24 23:48 37.2 C 98 H 20 121/67 89 L CPAP 08/20/24 22:35 84 24 95 O2 Flow Rate 08/21/24 08:32 4 08/21/24 07:36 4 08/21/24 03:54 08/21/24 02:57 4 08/21/24 00:07 4 08/21/24 00:06 08/20/24 23:48 08/20/24 22:35 4 Laboratory Results Intake and Output 08/20/24 08/21/24 08/21/24 22:59 06:59 14:59 Intake Total 200 / 200 Balance 200 / 200 Intake: IV 100 / 100 Acetaminophen 1,000 mg In 100 100 / 100 ml @ 400 mls/hr IV Q8H PRN Rx#: [id number] Oral 100 / 100 Other: # Unmeasured Voids 1 1 Weight 56.2 kg Weight Measurement Method Built in [facility]
--- NOTE | 2024-08-21 09:35 | Hospitalist Progress Note ---
Date of Service August 21, 2024 Assessment & Plan (1) Acute hypoxemic respiratory failure: Plan: Suspected secondary to pneumonia and some component of acute on chronic HFpEF- with increasing BNP and CT with possible pulmonary edema although no leg edema Pneumonia is worsening on CT here compared to CT from 08/15 as an outpatient with increasing nodular opacities Consult pulmonology appreciated Procalcitonin negative therefore antibiotics deferred on admission, but have since started cefepime. She is allergic to tetracycline as well as moxifloxacin and her QT is prolonged thus prohibiting addition of azithromycin or levofloxacin or doxycycline for atypicals. However, her bio fire is negative for mycoplasma which is reassuring. Legionella urine antigen negative Appreciate ID consult-initially recommended continue cefepime only for now and if worsens or decompensates, consider bronchoscopy and adding Flagyl versus switching to meropenem. Could also consider desensitization to doxycycline if concern for atypical pneumonia. However, with worsening confusion on 08/20, switch cefepime to meropenem Check sputum culture, Legionella culture if can give sputum sample hide and she has not been able to give a sample Continue to wean off O2 as able-currently on 2L NC which is a huge improvement Continue bronchodilator nebs, continue inhaled fluticasone, umeclidinium/vilanterol Received IV diuresis for 2 days and have since converted to p.o. Lasix 20 mg daily on 08/19 Continue Afrin and humidification to O2 for nosebleed secondary to nasal cannula Discontinuing metoprolol as per discussion with cardiology as this has caused h er bronchospasm and shortness of breath in the past-she has been short of breath since resuming metoprolol low-dose 3 months prior (2) Acute encephalopathy: Plan: Patient with worsening confusion since hospitalization as per family members. She does have baseline moderate expressive aphasia and some cognitive deficits. She did have a fall in the a.m. of 08/20-repeat head CT negative for hemorrhage, no new focal neuro deficits Cefepime switched to meropenem in case cefepime causing worsening delirium She has not moved her bowels in at least 4 days-add on bisacodyl as needed Senokot On the morning of 08/21 patient was even more lethargic and confused-repeat head CT again performed due to head trauma yesterday and history of intracranial hemorrhage-negative Most likely hospital delirium versus delirium from cefepime and infection Continue supportive care, promote good sleep-wake cycles Continue treating infection of pneumonia Continue supplemental O2 to keep pulse ox greater than 90% (3) Pneumonia: Plan: With increasing nodular opacities and groundglass opacities diffusely on CT, treatment noted as above (4) Fall: Plan: Got out of bed on her own on 08/20 a.m. and fell and struck her head on the metal register as witnessed by environmental services Has a very minor abrasion on left upper back otherwise no injuries CT head negative to Follow clinically (5) UTI (urinary tract infection): Plan: May be asymptomatic bacteriuria but urine culture with Enterococcus faecalis and Pseudomonas aeruginosa Discussed with ID-treating anyway with meropenem (6) Iron deficiency anemia: Plan: Hemoglobin 9.3-9.6, iron studies show transferrin saturation very low at 5% B12 and folate normal Started oral iron supplement Does have hematuria microscopic-follow as an outpatient Consider GI workup if not done recently (7) Acute heart failure with preserved ejection fraction: Plan: Could possibly be due to previous salt tablets No significant leg edema to suggest right sided heart failure Echo from outpatient in 07/2024 shows EF 60-64%, moderate LVH, small posterior loculated pericardial effusion without tamponade Repeat echo here with preserved EF, no significant valvular disease UA with only trace protein, no prior liver problems and LFTs normal Diuresed over 3 L net negative. Converted IV Lasix to p.o. 20 mg daily on 08/19 Strict I&Os, daily weights, low-sodium diet BNP normal Plan Other medical conditions: Prolonged QT interval-QT difficult to interpret on EKG here even on repeat on 08/18 which shows paced rhythm atrial flutter. Appreciate cardiology consultation-historically when in sinus rhythm, she also had prolonged QT, hence they recommend avoiding QT prolonging agents HTN -BPs normal, continue hydralazine, losartan, and Lasix, but discontinuing Toprol-XL pAfib/flutter- presence of Watchman hence no anticoagulation, permanent, appreciate cardiology consultation discontinue Toprol-XL due to shortness of breath Hyponatremia-sodium 130 on arrival and now improved to 132-133 with diuresis- follow BMP, continue diuresis JG - CPAP HS Recent hemorrhagic stroke-has repeat head CT as an outpatient scheduled for 09/05, follows with neurology. Repeat head CT here after fall in 08/20 and again on 08/21 negative for acute VTE Prophylaxis - SCDs, deferred chemical due to recurrent hemorrhagic strokes Disposition -continued stay PCU Admission and Anticipated Discharge Date Admission Date: August 17, 2024 Subjective Patient much more lethargic today than previous. at bedside is also concerned. Patient unable to really tell me much at all. She did sleep through the night with CPAP. Telemetry with atrial fibrillation and paced rhythm with rates in the 70s to 80s She has not moved her bowels in 4 days at least I discussed her care with pulmonology PA and cardiology Physical Exam Constitutional: well developed; no acute distress Eyes: PERRL, conjunctivae normal, anicteric sclerae Respiratory: + tachypneic Auscultation: + crackles (Bibasilar); no rhonchi and no wheezes Cardiovascular: Rate/Rhythm: regular rate and regular rhythm Extremities: no edema Gastrointestinal (Abdomen): normal bowel sounds, soft, nontender, no hepatosplenomegaly Neurologic: No facial droop, moving all extremities Psychiatric: Orientation: + not alert (Drowsy), + not oriented to person, + not oriented to place and + not oriented to time Results & Data Results & Data Vital Signs (Past 12 Hours) Vital Signs Temp Pulse Pulse Resp BP Pulse Ox O2 Del Method 08/21/24 08:32 36.9 C 76 22 135/45 L 92 Nasal Cannula 08/21/24 07:36 76 16 96 Nasal Cannula 08/21/24 03:54 37.0 C 88 18 133/78 96 CPAP 08/21/24 02:57 84 20 93 08/21/24 00:07 Nasal Cannula, CPAP 08/21/24 00:06 90 08/20/24 23:48 37.2 C 98 H 20 121/67 89 L CPAP 08/20/24 22:35 84 24 95 O2 Flow Rate 08/21/24 08:32 4 08/21/24 07:36 4 08/21/24 03:54 08/21/24 02:57 4 08/21/24 00:07 4 08/21/24 00:06 08/20/24 23:48 08/20/24 22:35 4 Laboratory Results CBC, BMP, CRP, magnesium, ABG, urine culture reviewed Diagnostic Findings CT head reviewed PG Care Time/CCT Total # of Minutes Spent Total Time Spent with Patient: Total time spent is greater than 50% in coordination of care (as documented) at patient's floor/unit and/or counseling patient: Coding Level of Care Code 51749 SUB INP/OBS CARE 50MIN Diagnoses Acute hypoxemic respiratory failure J96.01 Acute encephalopathy G93.40 Pneumonia J18.9 Fall, initial encounter W19.XXXA Encounter type: initial encounter Urinary tract infection without hematuria, site unspecified N39.0 Hematuria presence: without hematuria Urinary tract infection type: site unspecified Iron deficiency anemia D50.9 Acute heart failure with preserved ejection fraction I50.31 (4) Fall Encounter type: initial encounter Qualified Code(s): W19.XXXA - Unspecified fall, initial encounter (5) UTI (urinary tract infection) Hematuria presence: without hematuria Urinary tract infection type: site unspecified Qualified Code(s): N39.0 - Urinary tract infection, site not specified
[2024-08-21 09:54] LABS: Hematocrit (blood only) 29.4 % (37.0-47.0); Hemoglobin 9.6 g/dl (12.0-16.0); Mean Corpuscular Hemoglobin 26.4 pg (25.0-34.0); Mean Corpuscular Hgb Conc 32.7 g/dL (32.0-36.0); Mean Platelet Volume 9.5 fL (9.4-12.4); Platelet Count 333 K/uL (130-400); RDW Coefficient of Variation 14.9 % (11.5-14.5); RDW Standard Deviation 43.7 fL (36.4-46.3); Red Blood Count 3.63 M/uL (4.20-5.40); White Blood Count 11.87 K/ul (4.8-10.8)
[2024-08-21 10:05] LABS: BUN Creatinine Ratio 28.7 (10-20); C Reactive Protein 9.39 mg/dl (0-0.5); Calcium 9.5 mg/dl (8.6-10.3); Magnesium 1.9 mg/dl (1.7-2.4); Potassium 4.1 mmol/L (3.5-5.1)
[2024-08-21 10:11] LABS: Basophils # (auto) 0.02 K/uL (0.00-0.20); Basophils % (auto) 0.2 %; Eosinophils # (auto) 0.01 K/uL (0.00-0.50); Eosinophils % (auto) 0.1 %; Immature Granulocytes # (auto) 0.13 K/uL (0.01-0.20); Immature Granulocytes % (auto) 1.1 %; Lymphocytes # (auto) 0.23 K/uL (1.20-3.40); Lymphocytes % (auto) 1.9 %; Monocytes % (auto) 3.4 %; Neutrophils # (auto) 11.08 K/uL (1.40-6.50); Neutrophils % (auto) 93.3 %; Ovalocytes 1+; Toxic Vacuolation 1+
--- NOTE | 2024-08-21 10:14 | CT Scan Report ---
CT head/brain wo con CLINICAL HISTORY: lethargy,head trauma,r/o ICH Technique: Contiguous axial CT images of the head were acquired from the base of the skull to the adwoa mere without intravenous contrast administration. Images were viewed in brain, subdural and [facility]. Automated dose lowering techniques and/or adjustment according to patient size were utilized for this exam. Comparison: None available at the time of this dictation. Findings: Areas of decreased attenuation are present in the periventricular and subcortical white matter bilate rally consistent with small vessel ischemic disease. Generalized cerebral atrophy with commensurate e nlargement of the ventricles, sulci, and cisterns is also present. There is no acute intracranial hem orrhage or evidence of acute territorial infarction. No shift of the midline structures, mass effect, or extra-axial abnormalities are shown. Atherosclerotic calcifications are present in the intracran ial segments of the internal carotid arteries. Focal encephalomalacia in the left parietal region is seen. Encephalomalacia is also seen in the left internal capsule. Soft tissue thickening seen in the sinuses most prominently in the right maxillary sinus. The orbits appear normal. There are no acute fractures of the calvaria or scalp swelling. Impression: No acute abnormality and in particular no evidence of intracranial hemorrhage. ACT 112: Negative or not required by law. Electronically signed by: Gagandeep Fernandez M.D. 08/21/2024 10:13 AM
[2024-08-21 10:41] LABS: iSTAT Arterial Blood Gas HCO3 27 meg/L (19-24); iSTAT Arterial Blood Gas pCO2 32 mmHg (35-46); iSTAT Arterial Blood Gas pH 7.53 (7.35-7.45); iSTAT Arterial Blood Gas pO2 62 mmHg (80-95); iSTAT Carbon Dioxide 28 mmol/L (24-31); iSTAT Hematocrit 29 % (37-47); iSTAT Hemoglobin 9.9 g/dl (12.0-16.0); iSTAT Potassium 3.9 mmol/L (3.3-5.0); iSTAT Sample Type Arterial; iSTAT Sodium 134 mmol/L (135-144)
[2024-08-21] MEDS: bisacodyL 10 MG SUPP PR STA (11:33)
[2024-08-21] MEDS: levETIRAcetam 500 MG/5 ML VIAL IV SCH (12:43)
--- NOTE | 2024-08-21 13:30 | Pulmonology Progress Note ---
Date of Service August 21, 2024 Assessment & Plan (1) Pneumonia: (2) Prolonged QT interval: (3) Pulmonary edema: (4) Elevated brain natriuretic peptide (BNP) level: (5) Tachypnea: (6) Hypoxia: (7) Obstructive sleep apnea: Plan 74-year-old female with a complex past medical history including myotonic dystrophy, hemorrhagic strokes, atrial fibrillation, hypertension, emphysematous lung disease and neuromuscular weakness presenting to the hospital for dyspnea and increased hypoxemia. CT chest findings suggestive of aspiration pneumonitis versus pneumonia. No sputum cultures to date. Continue hypertonic saline twice daily. Encouraged to use of flutter valve and incentive spirometry for pulmonary toileting. Nebulized formoterol and budesonide while inpatient. Appreciate ID consult. Unfortunately, the patient appears to be somewhat confused today. She apparentl y was so prior to her fall. Head CT was unremarkable which is encouraging in a patient with ICH x 2. Question contribution of cefepime for her confusion as well. Reviewing her urine cultures, patient growing Enterococcus and pseudomonas. Consider changing to Meropenem per sensitivities. Thankfully, from a pulmonary perspective, the patient appears to be proving. She is saturating 95% on 3 L at this time. Continue to encourage pulmonary toileting and out of bed to chair as tolerated. No need for bronchoscopic evaluation currently. Will continue to evaluate. BAR CAPTAIN/video swallow evaluation reviewed. Recommend utilizing CPAP given her history of JG. Wean supplemental oxygen as able. Will likely need to step prior to discharge and a nocturnal O2 study on CPAP when she is closer to discharge. Continue to maintain euvolemia. Thank you for allowing us to participate in the care of this pleasant patient. Pulmonary will sign off at this time. Admission and Anticipated Discharge Date Admission Date: August 17, 2024 Subjective Patient seen and evaluated at bedside. She is more confused today. No distress. Review of Systems Review of Systems: As per HPI Physical Exam Physical Exam: VITAL SIGNS Vital signs and nursing notes were reviewed. GENERAL 74-year-old female appearing her stated age who is in no acute distress. NOSE Midline and without cyanosis. MOUTH/OROPHARYNX Without perioral cyanosis. LUNGS Chest wall evaluation demonstrates normal chest wall A:P diameter. Auscultation reveals bibasilar rales. CARDIAC RRR with S1/S2. No murmur, rubs, or gallops appreciated. EXTREMITIES Nail clubbing not present. No peripheral cyanosis. No pretibial edema present. +3/5 radial palpated throughout. PSYCH A&Ox3 and cooperates fully with examiner. Pt is very pleasant and interacts well with examiner. Results & Data Results & Data Vital Signs (Past 12 Hours) Vital Signs Temp Pulse Pulse Resp BP Pulse Ox O2 Del Method 08/21/24 12:16 36.9 C 104 H 20 123/68 94 Nasal Cannula 08/21/24 08:32 36.9 C 76 22 135/45 L 92 Nasal Cannula 08/21/24 08:00 87 08/21/24 08:00 Nasal Cannula 08/21/24 07:36 76 16 96 Nasal Cannula 08/21/24 03:54 37.0 C 88 18 133/78 96 CPAP 08/21/24 02:57 84 20 93 O2 Flow Rate 08/21/24 12:16 3 08/21/24 08:32 4 08/21/24 08:00 08/21/24 08:00 3 08/21/24 07:36 4 08/21/24 03:54 08/21/24 02:57 4 PG Care Time/CCT Total # of Minutes Spent Total Time Spent with Patient: Total time spent is greater than 50% in coordination of care (as documented) at patient's floor/unit and/or counseling patient: Coding Level of Care Code 33482 SUB INP/OBS CARE 2/35MIN Diagnoses Pneumonia J18.9 Prolonged QT interval R94.31 Pulmonary edema J81.1 Elevated brain natriuretic peptide (BNP) level R79.89 Tachypnea R06.82 Hypoxia R09.02 Obstructive sleep apnea G47.33
--- NOTE | 2024-08-21 16:59 | Infectious Disease Progress Nt ---
Date of Service August 21, 2024 Assessment & Plan (1) Prolonged QT interval: (2) Pneumonia: Plan This is a 74-year-old female with a past medical history of myotonic dystrophy, atrial fibrillation, CVAs, hypertension, emphysematous lung disease, neuromuscular weakness who presents to the ED with shortness of breath and hypoxia. She is on oxygen at home as needed. She denies any fevers, chills, nausea, vomiting. Denies any aspiration events. Sats at home were in the 70s. In the ED temperature 36.4, pulse 90, RR 34, blood pressure 170/96, O2 sat 78% on room air-->95% on 5l . Labs: WBC 8.46, hemoglobin 10.9, hematocrit 33.7, platelets 389, BUN 18, creatinine 0.77. Respiratory viral panel negative. Urine Legionella antigen negative, MRSA screen negative.. Procalcitonin 0.06. CTA chest with no pulmonary embolism; + groundglass opacities and nodular densities which may represent infectious/inflammatory airway disease. Repeat imaging shows multifocal patchy areas of groundglass and a few regions of nodular opacities most consistent with an atypical infectious process. Findings were increased from 05/2025. There is mild superimposed interstitial pulmonary edema. Chest x-ray shows no glass infiltrate on the right base concerning for pneumonia which could be infectious or related to aspiration. There is acute on chronic interstitial changes ; c/f pulmonary edema or infectious pneumonitis. TTE with trace pericardial effusion. She is currently on cefepime ( started 08/18). ID consulted for possible atypical pneumonia as patient is unable to receive azithromycin and doxycycline. Per her chart, she documented allergies listed: Itching/yeast infections with moxifloxacin, itching with tetracyclines, rash with penicillins, anaphylaxis with sulfa. When asked if she remembers exactly what occurs when she received these antibiotics, she does not remember. She is not certain if these allergies are accurate. An EKG shows an prolonged QTc; 604 on 08/18 and 523 on 08/17. Pulmonology is following: There are no plans for bronchoscopy given underlying comorbidities. She is pending speech therapy evaluation. Micro UCx 08/17 >100K E faecalis ( amp S), Pseudomonas Aer Abx Cefepime 08/18-08/20 Meropenem 08/21- ongoing # Acute hypoxic respiratory failure # Pneumonia vs Pneumonitis # Abx allergies - PCN : rash -Tetracycline: itching -Moxifloxacin: itching -Sulfa- swelling # Prolonged QTC # Myotonic dystrophy #PPM in place #Asymptomatic bacteriuria Discussion- Procalcitonin is low at 0.06. She is afebrile. unclear if presentation is 2/2 pneumonia vs pneumonitis. There was c/f atypical infection and aspiration on imaging Urine legionella ag negative. Mycoplasma pna and Chlamydia pna pcr negative ( on RVP). MRSA screen negative. She has documented allergies as per above, but she is not sure ofthe reactions. If continued concern for atypical pneumonia, can consider desensitization to doxycycline. Would hold azithromycin or fluoroquinolones for now as QTC is prolonged 08/20 She has psa and e faecalis in urine. Asymptomatic for UTI. Fell over night now with increased confusion. Concern for Cefepime effects Dced Cefepime given increased confusion and started Meropenem for PNA coverage. This will also cover E faecalis although no coverage needed with asymptomatic bacteriuria. 08/21 she is clinically improving and has less o2 requirements. Now on 3LNC, No plan for bronch.Clinically improving. Recommendations; -Continue Meropenem. Anticipate 7 days of coverage for Pna ( 08/18- 08/25). ID will sign off. Call with questions. . Efraín Toth MD, MPH Infectious Disease [facility], ID Division Call [phone] with questions Admission and Anticipated Discharge Date Admission Date: August 17, 2024 Subjective This patient recommendation is based on a telemedicine consult request which was completed asynchronously through chart review and information provided by the primary physician. The patient was not seen or examined today. The evaluation is consultative in nature and all patient care and treatment decisions can either be accepted or rejected by the patient's primary hospital-based treating physician using their own independent medical judgment for their patient. Time Spent Reviewing Chart: 21 - 30 minutes on 3l NC Results & Data Vital Signs (Past 12 Hours) Vital Signs Temp Pulse Pulse Resp BP Pulse Ox O2 Del Method 08/21/24 15:33 36.8 C 103 H 18 168/74 H 92 Oxymask 08/21/24 15:17 86 08/21/24 12:16 36.9 C 104 H 20 123/68 94 Nasal Cannula 08/21/24 08:32 36.9 C 76 22 135/45 L 92 Nasal Cannula 08/21/24 08:00 87 08/21/24 08:00 Nasal Cannula 08/21/24 07:36 76 16 96 Nasal Cannula O2 Flow Rate 08/21/24 15:33 2 08/21/24 15:17 08/21/24 12:16 3 08/21/24 08:32 4 08/21/24 08:00 08/21/24 08:00 3 08/21/24 07:36 4 Laboratory Results Short CBC 08/21/24 Range/Units 09:33 WBC 11.87 H (4.8-10.8) K/ul Hgb 9.6 L (12.0-16.0) g/dl Hct 29.4 L (37.0-47.0) % Plt Count 333 (130-400) K/uL BMP 08/21/24 09:33 Sodium 132 L Potassium 4.1 Chloride 97 L Carbon Dioxide 27 BUN 25 H Creatinine 0.87 Glucose 150 H Calcium 9.5 Diagnostic Findings Microbiology 08/17/24 18:12 Urine,Straight Cath Urine Culture - Final Enterococcus faecalis Pseudomonas aeruginosa Head CT 08/20/24 08:10 CT head/brain wo con CLINICAL HISTORY: fall with head trauma, h/o SAH Technique: Contiguous axial CT images of the head were acquired from the base of the skull to the vertex without intravenous contrast administration. Images were viewed in brain, subdural and bone windows. Automated dose lowering techniques and/or adjustment according to patient size were utilized for this exam. Comparison: None available at the time of this dictation. Findings: Exam is limited by patient motion. Focal encephalomalacia in the left parietal lobe is unchanged. No acute abnormality and in particular no evidence of intracranial hemorrhage. Imaged portions of the paranasal sinuses and mastoid air cells are clear. The orbits appear normal. There are no acute fractures of the calvaria or scalp swelling. Impression: No acute abnormality and in particular no intracranial hemorrhage. ACT 112: Negative or not required by law. Electronically signed by: Gagandeep Fernandez M.D. 08/20/2024 8:47 AM Videofluoroscopic Swallow 08/20/24 09:30 FL video swallow CLINICAL HISTORY: 74 years-old Female with assess for aspiration. Dysphagia. TECHNIQUE: Video fluoroscopic evaluation of swallowing was performed in the AP and lateral projections by the speech pathology staff. The patient is fed varying consistencies of barium. FLUOROSCOPY TIME: 1.26 minutes. 2602 images were obtained. 6.81 mGy COMPARISON STUDY: CT chest 08/17/2024 FINDINGS: There is normal hyoid excursion and epiglottic deflection. No significant penetration or aspiration identified. Swallowing function is within normal limits however there is mild esophageal dysmotility. IMPRESSION: 1. No aspiration identified. 2. Please see the speech pathologist report for detailed findings and recommendations. ACT 112: Negative or not required by law. Electronically signed by: Maxwell Romero M.D. 08/20/2024 10:48 AM Chest X-Ray 08/20/24 11:00 XR chest 1V portable CLINICAL HISTORY: follow up pna TECHNIQUE: Single frontal radiograph of the chest was obtained. Comparison: Comparison is made to chest radiograph 08/17/2024 and CTA chest 08/17/2024 FINDINGS: An implanted pacemaker is seen. Cardiomegaly is noted. The aortic arch is calcified. Right lower lung airspace opacity is again seen with interstitial changes. No evidence of pleural effusion or pneumothorax. IMPRESSION: 1. Stable appearance of right lower lobe airspace opacities concerning for pneumonia. 2. Emphysema and interstitial thickening. ACT 112: Negative or not required by law. Electronically signed by: Gagandeep Fernandez M.D. 08/20/2024 11:[address] 08/21/24 09:32 CT head/brain wo con CLINICAL HISTORY: lethargy,head trauma,r/o ICH Technique: Contiguous axial CT images of the head were acquired from the base of the skull to the vertex without intravenous contrast administration. Images were viewed in brain, subdural and bone windows. Automated dose lowering techniques and/or adjustment according to patient size were utilized for this exam. Comparison: None available at the time of this dictation. Findings: Areas of decreased attenuation are present in the periventricular and subcortical white matter bilaterally consistent with small vessel ischemic disease. Generalized cerebral atrophy with commensurate enlargement of the ventricles, sulci, and cisterns is also present. There is no acute intracranial hemorrhage or evidence of acute territorial infarction. No shift of the midline structures, mass effect, or extra-axial abnormalities are shown. Atherosclerotic calcifications are present in the intracranial segments of the internal carotid arteries. Focal encephalomalacia in the left parietal region is seen. Encephalomalacia is also seen in the left internal capsule. Soft tissue thickening seen in the sinuses most prominently in the right maxillary sinus. The orbits appear normal. There are no acute fractures of the calvaria or scalp swelling. Impression: No acute abnormality and in particular no evidence of intracranial hemorrhage. ACT 112: Negative or not required by law. Electronically signed by: Gagandeep Feranndez M.D. 08/21/2024 10:13 AM Medications Administered Home Medications Medication Instructions Recorded Confirmed Last Taken fluticasone propionate 50 2 spray intranasal DAILY PRN 04/13/22 08/17/24 03/05/24 mcg/actuation nasal Allergy Symptoms spray,suspension (Flonase Allergy Relief) albuterol sulfate 90 mcg/actuation 2 puff inhalation Q4H PRN 10/25/22 08/17/24 Unknown aerosol inhaler (Ventolin HFA) Shortness Of Breath #3 Inhalers fluticasone fur. 100 mcg-umeclid 1 inh inhalation DAILY #3 Inhalers 12/25/23 08/17/24 04/26/24 62.5 mcg-vilant 25 mcg inhalat.powder (Trelegy Ellipta) aspirin 81 mg chewable tablet 81 mg PO DAILY 02/07/24 08/17/24 04/26/24 levetiracetam 500 mg tablet 500 mg PO BID 02/07/24 08/17/24 04/26/24 (Keppra) multivitamin 1 tab PO DAILY 02/07/24 08/17/24 04/26/24 folic acid 1 mg tablet 1 mg PO BID 04/26/24 08/17/24 04/26/24 hydralazine 50 mg tablet 100 mg (2 x 50 mg) PO TID #90 tabs 05/21/24 08/17/24 Unknown cholecalciferol (vitamin D3) 50 50 mcg PO DAILY 06/29/24 08/17/24 Unknown mcg (2,000 unit) capsule magnesium oxide 400 mg (241.3 mg 400 mg PO QAM #0 tabs 07/01/24 08/17/24 Unknown magnesium) tablet metoprolol succinate 50 mg 50 mg PO DAILY #30 tabs 07/01/24 08/17/24 Unknown tablet,extended release 24 hr (Toprol XL) metformin 500 mg tablet 200 mg PO BID 08/12/24 08/17/24 Unknown prednisone 50 mg tablet 50 mg PO DAILY #3 tabs 08/14/24 08/17/24 Unknown olmesartan 40 mg tablet 40 mg PO DAILY 08/17/24 08/17/24 Unknown Active Medications Generic Name Dose Route Start Last Admin Trade Name Cedrick PRN Reason Stop Dose Admin Albuterol 3 ml 08/18/24 07:18 08/20/24 00:16 Albut/Ipratrop 3mg/0.5mg Neb 3 Ml Vial NEB 09/17/24 07:17 3 ml Q6R PRN Administration Shortness of breath, wheezing Protocol Aspirin 81 mg 08/18/24 09:00 08/21/24 08:32 Aspirin 81 Mg Chew PO 09/17/24 08:59 81 mg DAILY DOREEN Administration Budesonide 0.5 mg 08/18/24 19:00 08/21/24 07:35 Budesonide 0.5 Mg/2 Ml Vial (Pulmicort) [facility] 09/17/24 18:59 0.5 mg BIDR DOREEN Administration Ferrous Sulfate 325 mg 08/20/24 17:00 08/21/24 08:25 Ferrous Sulfate 325 Mg Tab PO 09/19/24 16:59 325 mg BIDM DOREEN Administration Folic Acid 1 mg 08/17/24 21:00 08/21/24 08:26 Folic Acid 1 Mg Tab PO 09/16/24 20:59 1 mg BID DOREEN Administration Formoterol Fumarate 20 mcg 08/18/24 19:00 08/21/24 07:35 Formoterol 20 Mcg/2 Ml Vial [facility] 09/17/24 18:59 20 mcg BIDR DOREEN Administration Furosemide 20 mg 08/20/24 09:00 08/21/24 08:26 Furosemide 20 Mg Tab PO 09/19/24 08:59 20 mg QAM DOREEN Administration Hydralazine HCl 100 mg 08/17/24 21:00 08/21/24 13:36 Hydralazine Tab 50 Mg Tab PO 09/16/24 20:59 100 mg TID DOREEN Administration Meropenem 500 mg/ Syringe 10 mls @ 2 mls/min 08/20/24 15:00 08/21/24 08:32 IV 08/25/24 14:59 2 mls/min Q6H DOREEN Administration Protocol Acetaminophen 1,000 mg in 100 mls @ 400 mls/hr 08/20/24 20:50 08/20/24 21:18 Ofirmev IV 08/23/24 20:49 Infused Q8H PRN Infusion Pain or Fever Levetiracetam 500 mg 08/17/24 21:00 08/21/24 10:35 Levetiracetam 500 Mg Tab PO 09/16/24 20:59 Not Given BID DOREEN Levetiracetam 500 mg 08/21/24 10:00 08/21/24 12:43 Levetiracetam 500 Mg/5 Ml Vial IV 09/20/24 09:59 500 mg Q12H DOREEN Administration Losartan Potassium 100 mg 08/18/24 09:00 08/21/24 08:29 Losartan Potassium 50 Mg Tab PO 09/17/24 08:59 100 mg DAILY DOREEN Administration Protocol Magnesium Oxide 400 mg 08/18/24 09:00 08/21/24 08:30 Magnesium Oxide 400 Mg Tab PO 09/17/24 08:59 400 mg QAM DOREEN Administration Sodium Chloride 4 ml 08/18/24 19:00 08/21/24 07:35 Sodium Chlor 7% 4 Ml Neb NEB 09/17/24 18:59 4 ml BIDR DOREEN Administration
[2024-08-21] MEDS: DOCUSATE SODIUM/SENNA 50/8.6MG TAB PO SCH (17:14)
[2024-08-22 06:29] LABS: Basophils # (auto) 0.03 K/uL (0.00-0.20); Basophils % (auto) 0.3 %; Eosinophils # (auto) 0.05 K/uL (0.00-0.50); Eosinophils % (auto) 0.5 %; Hematocrit (blood only) 31.4 % (37.0-47.0); Hemoglobin 9.9 g/dl (12.0-16.0); Immature Granulocytes % (auto) 1.1 %; Lymphocytes # (auto) 0.55 K/uL (1.20-3.40); Lymphocytes % (auto) 5.9 %; Mean Corpuscular Hemoglobin 26.5 pg (25.0-34.0); Mean Corpuscular Hgb Conc 31.5 g/dL (32.0-36.0); Mean Corpuscular Volume 84.2 fL (80.0-100.0); Mean Platelet Volume 9.9 fL (9.4-12.4); Monocytes # (auto) 0.45 K/uL (0.11-0.59); Monocytes % (auto) 4.8 %; Neutrophils # (auto) 8.16 K/uL (1.40-6.50); Neutrophils % (auto) 87.4 %; Platelet Count 309 K/uL (130-400); RDW Standard Deviation 45.9 fL (36.4-46.3); Red Blood Count 3.73 M/uL (4.20-5.40); White Blood Count 9.34 K/ul (4.8-10.8)
[2024-08-22 06:40] LABS: Calcium 9.5 mg/dl (8.6-10.3); Creatinine Clr Calc Pharmacy 45.3 ml/min; Magnesium 2.1 mg/dl (1.7-2.4)
[2024-08-22] MEDS: POLYETHYLENE (MIRALAX) 17 GM PACK PO SCH (09:41)
[2024-08-22] MEDS: bisacodyL 10 MG SUPP PR STA (09:47)
--- NOTE | 2024-08-22 13:26 | Cardiology Progress Note ---
Date of Service August 22, 2024 Assessment & Plan (1) Right lower lobe pneumonia: (2) Atrial flutter: (3) Cardiac pacemaker in situ: (4) S/P AV martell ablation: (5) Abnormal echocardiogram: (6) Prolonged QT interval: Plan Right lower lobe pneumonia. - As per Hospitalist. Prolonged QT interval - Avoid QTc prolonging medications if possible Pericardial effusion. - Echo on 08/18/2024 with trace pericardial fluid adjacent to the right atrium and right ventricle on subcostal views, without tamponade HFpEF. Hyponatremia/SIADH. - Prescribed IV furosemide 40 mg/day since admission. - Hyponatremia improved. - Volume status appears normovolemic to minimally hypervolemic. - Arevalo catheter remains in place. - Consider transitioning to oral furosemide 20 mg/day for SIADH, fluid retention, hypertension. Atrial flutter/fibrillation. 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 [id number] Score 7 points. - Status post January 30, 2024 31 mm Watchman implantation - March 14, 2024 MINH with a well seated device without evidence of perivalvular leak or thrombus; study terminated early due to excessive secretions - Status post March 05, 2024 radiofrequency ablation of the AV junction. 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 - Base rate decreased from 90 bpm to 80 bpm on 08/18/2024 by Rothman Dry Molder Hypertension - Prescribed losartan, hydralazine, and metoprolol succinate 50 mg/day which was prescribed when hospitalized with stroke like symptoms in June 2024. - Patient with past poor tolerance to beta-kell therapy when hospitalized in February 2024 - See above. Abnormal Echocardiogram - Echo on 07/15/2024 with small posterior loculated pericardial effusion, moderately LVH, hyperechogenic myocardium, grade I diastolic dysfunction. - ? Infiltrative process. - Outpatient Cardiac MRI Please contact with any cardiac questions or concerns. 08/20/2024: Pneumonia -Continued treatment as per primary team, pulmonary and infectious disease Prolonged QT interval: -Continue to refrain from use of Prolonging medications if possible. HFpEF/Hyponatremia/SIDAH -Hyponatremia stable when compared to yesterday (132) -Patient appear euvolemic on exam today -Continue furosemide 20mg daily Atrial fibrillation/flutter/ Tachy-Isacc syndrome. -No episodes of A-fib overnight. -s/p Rothman PPM February 2024. -history of ischemic CVA with hemorrhagic conversion in november 2023, patient has since undergone watchman implantation January 2024 -history of prior RFA of AV junction February 2024 HTN: -Well controlled today -Continue losartan, hydralizine and reduced dose of Toprol xl. Abnormal Echo -small posterior loculated pericardial effusion, moderate LVH, possible infiltrative process, consider cardiac MRI outpatient pending patient's clinical path. Case has been discussed with Dr. Franklin. Further recommendations regarding plan of care as per his assessment. 08/21/2024: Acute mental Status change: -Etiology unclear, patient was taken for repeat head CT with no acute findings -? infection -? response to new antibiotics started yesterday -Continued management per primary team. Pneumonia -Continued treatment as per primary team, pulmonary and infectious disease Prolonged QT interval: -Continue to refrain from use of Prolonging medications if possible. HFpEF/Hyponatremia/SIDAH -Hyponatremia stable when compared to yesterday (132) -Patient appear euvolemic on exam today -Continue furosemide 20mg daily Atrial fibrillation/flutter/ Tachy-Isacc syndrome. -s/p Rothman PPM February 2024. -history of ischemic CVA with hemorrhagic conversion in november 2023, patient has since undergone watchman implantation January 2024 -history of prior RFA of AV junction February 2024 HTN: -Well controlled today -Continue losartan, hydralazine. Stop Toprol xl Abnormal Echo -small posterior loculated pericardial effusion, moderate LVH, possible infiltrative process, consider cardiac MRI outpatient pending patient's clinical path. 08/22/2024: Acute mental status changed: -mild improvement in comparison to yesterday, but remains quite lethargic and does not answer questions. -Continued management per primary team. Pneumonia: -As per management of primary team and infectious disease. -patient is limited to antibiotic choices s/t prolonged QT interval. Prolonged QT interval: -Continue to refrain from use of Prolonging medications if possible. HFpEF/Hyponatremia/SIDAH -Hyponatremia, now stabilized per AM labs. -Patient appear euvolemic on exam today -Continue furosemide 20mg daily Atrial fibrillation/flutter/ Tachy-Isacc syndrome. -s/p Rothman PPM February 2024. -history of ischemic CVA with hemorrhagic conversion in november 2023, patient has since undergone watchman implantation January 2024 -history of prior RFA of AV junction February 2024 HTN: -Well controlled today -Continue losartan, hydralazine. Toprol xl was discontinued yesterday. Abnormal Echo -small posterior loculated pericardial effusion, moderate LVH, possible infiltrative process, consider cardiac MRI outpatient pending patient's clinical path. Case has been discussed with Dr. Franklin. Further recommendations regarding plan of care as per his assessment. I spent a total of 30 minutes on the date of service in preparation, delivery, documentation of the care provided to the patient excluding any time spent in the performance of separately billed services. CONCEPC[facility] Dy[facility] Admission and Anticipated Discharge Date Admission Date: August 17, 2024 Supervising Physician Co-Signing Physician Notes Attending attestation: Case reviewed with the advanced practitioner. I have personally performed a history and physical examination on the patient. I have reviewed the advanced practitioner's documentation on the date of service referenced in note, and I agree with, and take responsibility for the plan of care. Discontinue metoprolol with thoughts that perhaps it is worsening her pulmonary status. Treatment of encephalopathy as per primary team. As previously noted not on anticoagulation due to past intracranial hemorrhage and has had a Watchman device. I spent a total of 20 minutes coordinating, documenting, and providing care for this patient excluding time spent in the performance of separately billed services or time spent by another provider. Homer Franklin DO Subjective 08/22/2024: Patient seen and examined in follow up today. She is resting in bed, spouse at bedside. She remains lethargic, but opens her eyes and says "yes" to her name. Unable to provider any further ROS. Respiratory rate improved in comparison to yesterday. Labs, vitals, diagnostics, telemetry and documentation reviewed. Telemetry reviewed showing V-paced with underlying Atrial flutter noted yesterday around 5pm. No acute events overnight. Review of Systems Review of Systems: Unobtainable due to cognitive status Physical Exam Constitutional: + ill appearing, + thin and + cachectic; no acute distress Neck: normal visual inspection and trachea midline Respiratory: normal respiratory effort; no respiratory distress Auscultation: + wheezes (faint exp wheezes in bilateral bases ); no crackles, no rales and no rhonchi Cardiovascular: RRR, no murmur, no edema Heart Sounds: normal S1 and normal S2; no murmur Vessels: dorsalis pedis pulses present; no JVD Extremities: no edema Skin: no rashes, warm and dry Psychiatric: Orientation: + not alert and + not oriented x 3 Results & Data Vital Signs (Past 12 Hours) Vital Signs Temp Pulse Pulse Resp BP BP Pulse Ox 08/22/24 10:45 37.3 C 80 20 148/72 H 91 08/22/24 08:00 08/22/24 07:30 81 20 154/80 H 92 08/22/24 06:49 08/22/24 06:49 90 24 99 08/22/24 03:51 36.4 C L 80 20 153/82 H 95 08/22/24 03:15 91 H 25 H 98 08/22/24 02:10 O2 Del Method O2 Flow Rate 08/22/24 10:45 Nasal Cannula 08/22/24 08:00 CPAP 5 08/22/24 07:30 CPAP 08/22/24 06:49 CPAP 08/22/24 06:49 08/22/24 03:51 CPAP 08/22/24 03:15 4 08/22/24 02:10 Nasal Cannula, CPAP 3 Laboratory Results CBC 08/22/24 Range/Units 05:43 WBC 9.34 (4.8-10.8) K/ul RBC 3.73 L (4.20-5.40) M/uL Hgb 9.9 L (12.0-16.0) g/dl Hct 31.4 L (37.0-47.0) % Plt Count 309 (130-400) K/uL Neut # (Auto) 8.16 H (1.40-6.50) K/uL Lymph # (Auto) 0.55 L (1.20-3.40) K/uL [place] # (Auto) 0.45 (0.11-0.59) K/uL Eos # (Auto) 0.05 (0.00-0.50) K/uL Baso # (Auto) 0.03 (0.00-0.20) K/uL Comprehensive Metabolic Panel 08/22/24 Range/Units 05:43 Sodium 136 (136-145) mmol/L Potassium 4.0 (3.5-5.1) mmol/L Chloride 99 (98-107) mmol/L Carbon Dioxide 30 (21-32) mmol/L BUN 32 H (6-23) mg/dl Creatinine 0.94 (0.6-1.2) mg/dl Glucose 112 H (70-99(Fasting)) mg/dl Calcium 9.5 (8.6-10.3) mg/dl Intake and Output 08/21/24 08/22/24 08/22/24 22:59 06:59 14:59 Intake Total 100 / 100 Balance 100 / 100 Intake: IV 100 / 100 Acetaminophen 1,000 mg In 100 100 / 100 ml @ 400 mls/hr IV Q8H PRN Rx#: [id number] Other: # Unmeasured Voids 1 Weight 55.8 kg Weight Measurement Method Built in [facility]
[2024-08-22] MEDS: ACETAMINOPHEN 1,000 MG/100 ML VIAL IV PRN (15:41)
--- NOTE | 2024-08-22 15:42 | Hospitalist Progress Note ---
Date of Service August 22, 2024 Assessment & Plan (1) Acute hypoxemic respiratory failure: Plan: Pneumonia/Influenza A/ Acute respiratory failure with hypoxia/---> 2/2 pneumonia and some component of acute on chronic HFpEF-with increasing BNP and CT with possible pulmonary edema although no leg edema Pneumonia is worsening on CT on admission 08/[address] from 08/15 as an outpatient with increasing nodular opacities Consult pulmonology appreciated-added antibiotics and steroids Procalcitonin negative therefore antibiotics deferred on admission, but then started cefepime. She is allergic to tetracycline as well as moxifloxacin and her QT is prolonged thus prohibiting addition of azithromycin or levofloxacin or doxycycline for atypicals. However, her bio fire is negative for mycoplasma which is reassuring. Legionella urine antigen negative Appreciate ID consult-initially recommended continue cefepime only for now and if worsens or decompensates, consider bronchoscopy and adding Flagyl versus switching to meropenem. Could also consider desensitization to doxycycline if concern for atypical pneumonia. However, with worsening confusion on 08/20, switched cefepime to meropenem 08/22 developed fever, worsening hypoxia requiring 6LNC, became obtunded. Repeat CXR shows worsening multifocal PNA. CT A/P with nodular infiltrates at lung bases but otherwise no acute issues. CT head with maxillary sinusitis. UA neg for infection. Procal neg. Biofire now POSITIVE for Influenza A ABG c/w acute respiratory alkalosis Now intubated on 08/22 for being obtunded with severe encephalopathy. COnsidering bronchoscopy now that is on vent Check sputum culture or BAL if bronch; check Legionella culture if bronhc performed Continue bronchodilator nebs, continue inhaled fluticasone, umeclidinium/vilanterol Received IV diuresis for 2 days and have since converted to p.o. Lasix 20 mg daily on 08/19-hold now for being NPO and febrile, giving gentle IVFs-Plasmalyte 70mL/hr Discontinued metoprolol as per discussion with cardiology as this has caused her bronchospasm and shortness of breath in the past-she has been short of breath since resuming metoprolol low-dose 3 months prior Follow CXR Appreciate ICU management (2) Acute encephalopathy: Plan: Patient with worsening confusion since hospitalization as per family members. She does have baseline moderate expressive aphasia and some cognitive deficits. She did have a fall in the a.m. of 08/20-repeat head CT negative for hemorrhage, no new focal neuro deficits Cefepime switched to meropenem in case cefepime causing worsening delirium She has not moved her bowels in at least 5 days-added on bisacodyl as needed, added on Senokot On the morning of 08/21 patient was even more lethargic and confused-repeat head CT again performed due to head trauma the day before and history of intracranial hemorrhage-negative 08/22 became obtunded as above, repeat CT head neg for acute. With Influenza A + as above hospital delirium versus delirium from cefepime and infection Continue supportive care, promote good sleep-wake cycles Continue treating infection of pneumonia Continue supplemental O2 to keep pulse ox greater than 90%-currently on vent (3) Pneumonia: Plan: With increasing nodular opacities and groundglass opacities diffusely on CT, treatment noted as above (4) Fall: Plan: Got out of bed on her own on 08/20 a.m. and fell and struck her head on the metal register as witnessed by environmental services Has a very minor abrasion on left upper back otherwise no injuries CT head negative (5) UTI (urinary tract infection): Plan: Likely asymptomatic bacteriuria- urine culture with Enterococcus faecalis and Pseudomonas aeruginosa Discussed with ID-treating anyway with meropenem (6) Iron deficiency anemia: Plan: Hemoglobin 9.3-9.9, iron studies show transferrin saturation very low at 5% B12 and folate normal Started oral iron supplement Does have hematuria microscopic-follow as an outpatient Consider GI workup if not done recently (7) Acute heart failure with preserved ejection fraction: Plan: Could possibly be due to previous salt tablets No significant leg edema to suggest right sided heart failure Echo from outpatient in 07/2024 shows EF 60-64%, moderate LVH, small posterior loculated pericardial effusion without tamponade Repeat echo here with preserved EF, no significant valvular disease UA with only trace protein, no prior liver problems and LFTs normal Diuresed over 3 L net negative. Converted IV Lasix to p.o. 20 mg daily on 08/19 Strict I&Os, daily weights, low-sodium diet BNP normal Plan Other medical conditions: Prolonged QT interval-QT difficult to interpret on EKG here even on repeat on 08/18 which shows paced rhythm atrial flutter. Appreciate cardiology consultation-historically when in sinus rhythm, she also had prolonged QT, hence they recommend avoiding QT prolonging agents HTN -BPs normal, continue hydralazine, losartan, and Lasix, but discontinued Toprol-XL pAfib/flutter- presence of Watchman hence no anticoagulation, permanent, appreciate cardiology consultation discontinue Toprol-XL due to shortness of breath Hyponatremia-sodium 130 on arrival and now improved to 132-133 with diuresis- follow BMP, continue diuresis JG - CPAP HS Recent hemorrhagic stroke-has repeat head CT as an outpatient scheduled for 09/05, follows with neurology. Repeat head CT here after fall in 08/20 and again on 08/21 negative for acute VTE Prophylaxis - SCDs, deferred chemical due to recurrent hemorrhagic strokes Disposition -continued stay but transfer to ICU Admission and Anticipated Discharge Date Admission Date: August 17, 2024 Subjective Pt with ongoing lethargy throughout the day and not eating or drinking. Then, spiked a fever mid afternoon. She was minimally responsive, nonverbal, obtunded. I discussed her care with her at bedside. I discussed her care with ID, PULM/ICU, and Cardiology Decision made to transfer to ICU in case of need for intubation and for LP given fever and being obtunded. Tele with atrial flutter, aced rhythm, normal rates Physical Exam Constitutional: + ill appearing and + lethargic Eyes: PERRL, conjunctivae normal, anicteric sclerae Respiratory: + tachypneic Auscultation: + crackles (Bibasilar) and + rhonc hi; no wheezes Cardiovascular: Rate/Rhythm: regular rate and regular rhythm Extremities: no edema Gastrointestinal (Abdomen): normal bowel sounds, soft, nontender, no hepatosplenomegaly Psychiatric: Orientation: + not alert (obtunded), + not oriented to person, + not oriented to place and + not oriented to time Results & Data Results & Data Vital Signs (Past 12 Hours) Vital Signs Temp Pulse Pulse Resp BP BP Pulse Ox 08/22/24 14:54 88 L 08/22/24 14:46 38.1 C H 80 26 H 152/77 H 91 08/22/24 10:45 37.3 C 80 20 148/72 H 91 08/22/24 08:00 08/22/24 07:30 81 20 154/80 H 92 08/22/24 06:49 08/22/24 06:49 90 24 99 08/22/24 03:51 36.4 C L 80 20 153/82 H 95 O2 Del Method O2 Flow Rate 08/22/24 14:54 Nasal Cannula 3 08/22/24 14:46 Nasal Cannula 5 08/22/24 10:45 Nasal Cannula 08/22/24 08:00 CPAP 5 08/22/24 07:30 CPAP 08/22/24 06:49 CPAP 08/22/24 06:49 08/22/24 03:51 CPAP Laboratory Results CBC, CMP, procal, UA, CRP, Biofire , Lyme, Anaplasmosis/Babesiosis smear reviewed Diagnostic Findings CT head and CXR images personally reviewed by la CT A/P reviewed PG Care Time/CCT Total # of Minutes Spent Total Time Spent with Patient: Total time spent is greater than 50% in coordination of care (as documented) at patient's floor/unit and/or counseling patient: Coding Level of Care Code 72165 SUB INP/OBS CARE 3/50MIN Diagnoses Acute hypoxemic respiratory failure J96.01 Acute encephalopathy G93.40 Pneumonia J18.9 Fall, initial encounter W19.XXXA Encounter type: initial encounter Urinary tract infection without hematuria, site unspecified N39.0 Hematuria presence: without hematuria Urinary tract infection type: site unspecified Iron deficiency anemia D50.9 Acute heart failure with preserved ejection fraction I50.31 (4) Fall Encounter type: initial encounter Qualified Code(s): W19.XXXA - Unspecified fall, initial encounter (5) UTI (urinary tract infection) Hematuria presence: without hematuria Urinary tract infection type: site unspecified Qualified Code(s): N39.0 - Urinary tract infection, site not specified
[2024-08-22] MEDS: MEROPENEM 500 MG in SYRINGE 0 ML IV SCH (15:53)
[2024-08-22 16:18] LABS: iSTAT Arterial Blood Gas HCO3 27 meg/L (19-24); iSTAT Arterial Blood Gas pCO2 35 mmHg (35-46); iSTAT Arterial Blood Gas pH 7.49 (7.35-7.45); iSTAT Arterial Blood Gas pO2 63 mmHg (80-95); iSTAT Carbon Dioxide 28 mmol/L (24-31); iSTAT Hematocrit 29 % (37-47); iSTAT Hemoglobin 9.9 g/dl (12.0-16.0); iSTAT Sodium 137 mmol/L (135-144)
--- NOTE | 2024-08-22 16:19 | Infectious Disease Progress Nt ---
Date of Service August 22, 2024 Assessment & Plan (1) Prolonged QT interval: (2) Pneumonia: Plan This is a 74-year-old female with a past medical history of myotonic dystrophy, atrial fibrillation, CVAs, hypertension, emphysematous lung disease, neuromuscular weakness who presents to the ED with shortness of breath and hypoxia. She is on oxygen at home as needed. She denies any fevers, chills, nausea, vomiting. Denies any aspiration events. Sats at home were in the 70s. In the ED temperature 36.4, pulse 90, RR 34, blood pressure 170/96, O2 sat 78% on room air-->95% on 5l . Labs: WBC 8.46, hemoglobin 10.9, hematocrit 33.7, platelets 389, BUN 18, creatinine 0.77. Respiratory viral panel negative. Urine Legionella antigen negative, MRSA screen negative.. Procalcitonin 0.06. CTA chest with no pulmonary embolism; + groundglass opacities and nodular densities which may represent infectious/inflammatory airway disease. Repeat imaging shows multifocal patchy areas of groundglass and a few regions of nodular opacities most consistent with an atypical infectious process. Findings were increased from 05/2025. There is mild superimposed interstitial pulmonary edema. Chest x-ray shows no glass infiltrate on the right base concerning for pneumonia which could be infectious or related to aspiration. There is acute on chronic interstitial changes ; c/f pulmonary edema or infectious pneumonitis. TTE with trace pericardial effusion. She was started on cefepime 08/18. ID consulted for possible atypical pneumonia as patient is unable to receive azithromycin and doxycycline. Per her chart, she has documented allergies listed: Itching/yeast infections with moxifloxacin, itching with tetracyclines, rash with penicillins, anaphylaxis with sulfa. When asked if she remembers exactly what occurs when she received these antibiotics, she does not remember. She is not certain if these allergies are accurate. An EKG shows an prolonged QTc; 604 on 08/18 and 523 on 08/17. Pulmonology is following: There are no plans for bronchoscopy given underlying comorbidities. Micro UCx 08/17 >100K E faecalis ( amp S), Pseudomonas Aer Abx Cefepime 08/18-08/20 Meropenem 08/21- ongoing # Acute hypoxic respiratory failure # Pneumonia vs Pneumonitis # Abx allergies - PCN : rash -Tetracycline: itching -Moxifloxacin: itching -Sulfa- swelling # Prolonged QTC # Myotonic dystrophy #PPM in place #Asymptomatic bacteriuria Discussion- Procalcitonin on admission is low at 0.06 and she remained afebrile. Unclear if presentation is 2/2 pneumonia vs pneumonitis. There was c/f atypical infection and aspiration on imaging. Urine legionella ag negative. Mycoplasma pna and Chlamydia pna pcr negative ( on RVP). MRSA screen negative. She has documented allergies as per above, but she is not sure of the reactions. If continued concern for atypical pneumonia, can consider desensitization to doxycycline. Would hold azithromycin or fluoroquinolones for now as QTC is prolonged 08/20 She has psa and e faecalis in urine. Asymptomatic for UTI. Fell over night now with increased confusion. Concern for Cefepime effects Discontinued Cefepime given increased confusion and started Meropenem for PNA coverage. This will also cover E faecalis although no coverage needed with asymptomatic bacteriuria. 08/21 she is clinically improving and has less o2 requirements.Now on 3LNC (from 5L). No plans for bronch per pulm as clinically improving. ID recommended 7 days of abx. 08/22 asked to reeval as had fevers Tm 39 and worsening respiratory status as well as worsening mental status. No mention of new rash or ulcer per d/w t eam. Recommendations; -Continue Meropenem but change dosing to 1 g IV q 8h ( [employer]IOR [employer] FELLOW and lung dosing, renal adjustment for cr cl 45) -Add back IV vancomycin per pharm protocol -Add Acyclovir 10 mg/kg IV q 12 ( renal adjustment for cr cl 45) with IVF -Check CT lung -Follow up CT head -Follow up repeat BC -Follow up repeat procalcitonin -Pulmonary re-eval . May need bronchoscopy with BAL . - May need desensitization for Doxycycline if true allergy in ICU - Check legionella Sputum Culture. -Less likely to have developed a nosocomial SENIOR RESEARCH FELLOW infection, but she is pending LP to rule this out: send CSF fluid for cell count with diff, protein, glucose, Meningitis/Encephalitis panal ( includes HSV 1/2 and VZV pcr), CSF culture. I discussed case with Dr Guajardo ID will continue to follow. ID will not round or review the chart over the weekend. Call covering provider at [facility] at [phone] with questions. I will return on service , Sunday08/25/24 Efraín Toth MD, MPH Infectious Disease [facility], [facility] Admission and Anticipated Discharge Date Admission Date: August 17, 2024 Subjective This patient recommendation is based on a telemedicine consult request which was completed asynchronously through chart review and information provided by the primary physician. The patient was not seen or examined today. The evaluation is consultative in nature and all patient care and treatment decisions can either be accepted or rejected by the patient's primary hospital-based treating physician using their own independent medical judgment for their patient. Time Spent Reviewing Chart: 31+ minutes Decompensated with fevers, ams and worsening respiratory status. E-consult follow up done as no available cable television line technician to see via video Discussed with hospitalist . Results & Data Vital Signs (Past 12 Hours) Vital Signs Temp Pulse Pulse Resp BP BP Pulse Ox 08/22/24 15:59 37.7 C H 08/22/24 14:54 88 L 08/22/24 14:46 38.1 C H 80 26 H 152/77 H 91 08/22/24 10:45 37.3 C 80 20 148/72 H 91 08/22/24 08:00 08/22/24 07:30 81 20 154/80 H 92 08/22/24 06:49 08/22/24 06:49 90 24 99 O2 Del Method O2 Flow Rate 08/22/24 15:59 08/22/24 14:54 Nasal Cannula 3 08/22/24 14:46 Nasal Cannula 5 08/22/24 10:45 Nasal Cannula 08/22/24 08:00 CPAP 5 08/22/24 07:30 CPAP 08/22/24 06:49 CPAP 08/22/24 06:49 Laboratory Results Short CBC 08/22/24 Range/Units 05:43 WBC 9.34 (4.8-10.8) K/ul Hgb 9.9 L (12.0-16.0) g/dl Hct 31.4 L (37.0-47.0) % Plt Count 309 (130-400) K/uL BMP 08/22/24 05:43 Sodium 136 Potassium 4.0 Chloride 99 Carbon Dioxide 30 BUN 32 H Creatinine 0.94 Glucose 112 H Calcium 9.5 Diagnostic Findings Microbiology 08/17/24 18:12 Urine,Straight Cath Urine Culture - Final Enterococcus faecalis Pseudomonas aeruginosa Head CT 08/20/24 08:10 CT head/brain wo con CLINICAL HISTORY: fall with head trauma, h/o SAH Technique: Contiguous axial CT images of the head were acquired from the base of the skull to the vertex without intravenous contrast administration. Images were viewed in brain, subdural and bone windows. Automated dose lowering techniques and/or adjustment according to patient size were utilized for this exam. Comparison: None available at the time of this dictation. Findings: Exam is limited by patient motion. Focal encephalomalacia in the left parietal lobe is unchanged. No acute abnormality and in particular no evidence of intracranial hemorrhage. Imaged portions of the paranasal sinuses and mastoid air cells are clear. The orbits appear normal. There are no acute fractures of the calvaria or scalp swelling. Impression: No acute abnormality and in particular no intracranial hemorrhage. ACT 112: Negative or not required by law. Electronically signed by: Gagandeep Fernandez M.D. 08/20/2024 8:47 AM Videofluoroscopic Swallow 08/20/24 09:30 FL video swallow CLINICAL HISTORY: 74 years-old Female with assess for aspiration. Dysphagia. TECHNIQUE: Video fluoroscopic evaluation of swallowing was performed in the AP and lateral projections by the speech pathology staff. The patient is fed varying consistencies of barium. FLUOROSCOPY TIME: 1.26 minutes. 2602 images were obtained. 6.81 mGy COMPARISON STUDY: CT chest 08/17/2024 FINDINGS: There is normal hyoid excursion and epiglottic deflection. No significant penetration or aspiration identified. Swallowing function is within normal limits however there is mild esophageal dysmotility. IMPRESSION: 1. No aspiration identified. 2. Please see the speech pathologist report for detailed findings and recommendations. ACT 112: Negative or not required by law. Electronically signed by: Maxwell Romero M.D. 08/20/2024 10:48 AM Chest X-Ray 08/20/24 11:00 XR chest 1V portable CLINICAL HISTORY: follow up pna TECHNIQUE: Single frontal radiograph of the chest was obtained. Comparison: Comparison is made to chest radiograph 08/17/2024 and CTA chest 08/17/2024 FINDINGS: An implanted pacemaker is seen. Cardiomegaly is noted. The aortic arch is calcified. Right lower lung airspace opacity is again seen with interstitial changes. No evidence of pleural effusion or pneumothorax. IMPRESSION: 1. Stable appearance of right lower lobe airspace opacities concerning for pneumonia. 2. Emphysema and interstitial thickening. ACT 112: Negative or not required by law. Electronically signed by: Gagandeep Fernandez M.D. 08/20/2024 11:[address] 08/21/24 09:32 CT head/brain wo con CLINICAL HISTORY: lethargy,head trauma,r/o ICH Technique: Contiguous axial CT images of the head were acquired from the base of the skull to the vertex without intravenous contrast administration. Images were viewed in brain, subdural and bone windows. Automated dose lowering techniques and/or adjustment according to patient size were utilized for this exam. Comparison: None available at the time of this dictation. Findings: Areas of decreased attenuation are present in the periventricular and subcortic al white matter bilaterally consistent with small vessel ischemic disease. Generalized cerebral atrophy with commensurate enlargement of the ventricles, sulci, and cisterns is also present. There is no acute intracranial hemorrhage or evidence of acute territorial infarction. No shift of the midline structures, mass effect, or extra-axial abnormalities are shown. Atherosclerotic calcifications are present in the intracranial segments of the internal carotid arteries. Focal encephalomalacia in the left parietal region is seen. Encephalomalacia is also seen in the left internal capsule. Soft tissue thickening seen in the sinuses most prominently in the right maxillary sinus. The orbits appear normal. There are no acute fractures of the calvaria or scalp swelling. Impression: No acute abnormality and in particular no evidence of intracranial hemorrhage. ACT 112: Negative or not required by law. Electronically signed by: Gagandeep Fernandez M.D. 08/21/2024 10:13 AM Medications Administered Home Medications Medication Instructions Recorded Confirmed Last Taken fluticasone propionate 50 2 spray intranasal DAILY PRN 04/13/22 08/17/24 03/05/24 mcg/actuation nasal Allergy Symptoms spray,suspension (Flonase Allergy Relief) albuterol sulfate 90 mcg/actuation 2 puff inhalation Q4H PRN 10/25/22 08/17/24 Unknown aerosol inhaler (Ventolin HFA) Shortness Of Breath #3 Inhalers fluticasone fur. 100 mcg-umeclid 1 inh inhalation DAILY #3 Inhalers 12/25/23 08/17/24 04/26/24 62.5 mcg-vilant 25 mcg inhalat.powder (Trelegy Ellipta) aspirin 81 mg chewable tablet 81 mg PO DAILY 02/07/24 08/17/24 04/26/24 levetiracetam 500 mg tablet 500 mg PO BID 02/07/24 08/17/24 04/26/24 (Igor) multivitamin 1 tab PO DAILY 02/07/24 08/17/24 04/26/24 folic acid 1 mg tablet 1 mg PO BID 04/26/24 08/17/24 04/26/24 hydralazine 50 mg tablet 100 mg (2 x 50 mg) PO TID #90 tabs 05/21/24 08/17/24 Unknown cholecalciferol (vitamin D3) 50 50 mcg PO DAILY 06/29/24 08/17/24 Unknown mcg (2,000 unit) capsule magnesium oxide 400 mg (241.3 mg 400 mg PO QAM #0 tabs 07/01/24 08/17/24 Unknown magnesium) tablet metoprolol succinate 50 mg 50 mg PO DAILY #30 tabs 07/01/24 08/17/24 Unknown tablet,extended release 24 hr (Toprol XL) metformin 500 mg tablet 200 mg PO BID 08/12/24 08/17/24 Unknown prednisone 50 mg tablet 50 mg PO DAILY #3 tabs 08/14/24 08/17/24 Unknown olmesartan 40 mg tablet 40 mg PO DAILY 08/17/24 08/17/24 Unknown Active Medications Generic Name Dose Route Start Last Admin Trade Name Freq PRN Reason Stop Dose Admin Albuterol 3 ml 08/18/24 07:18 08/20/24 00:16 Albut/Ipratrop 3mg/0.5mg Neb 3 Ml Vial NEB 09/17/24 07:17 3 ml Q6R PRN Administration Shortness of breath, wheezing Protocol Aspirin 81 mg 08/18/24 09:00 08/22/24 09:53 Aspirin 81 Mg Chew PO 09/17/24 08:59 81 mg DAILY DOREEN Administration Budesonide 0.5 mg 08/18/24 19:00 08/22/24 06:48 Budesonide 0.5 Mg/2 Ml Vial (Pulmicort) NEB 09/17/24 18:59 0.5 mg BIDR DOREEN Administration Ferrous Sulfate 325 mg 08/20/24 17:00 08/22/24 16:01 Ferrous Sulfate 325 Mg Tab PO 09/19/24 16:59 Not Given BIDM DOREEN Folic Acid 1 mg 08/17/24 21:00 08/22/24 09:53 Folic Acid 1 Mg Tab PO 09/16/24 20:59 1 mg BID DOREEN Administration Formoterol Fumarate 20 mcg 08/18/24 19:00 08/22/24 06:48 Formoterol 20 Mcg/2 Ml Vial NEB 09/17/24 18:59 20 mcg BIDR DOREEN Administration Furosemide 20 mg 08/20/24 09:00 08/22/24 09:56 Furosemide 20 Mg Tab PO 09/19/24 08:59 20 mg QAM DOREEN Administration Hydralazine HCl 100 mg 08/17/24 21:00 08/22/24 15:40 Hydralazine Tab 50 Mg Tab PO 09/16/24 20:59 Not Given TID DOREEN Acetaminophen 1,000 mg in 100 mls @ 400 mls/hr 08/22/24 14:55 08/22/24 15:52 Ofirmev IV 08/25/24 14:54 Infused Q8H PRN Infusion Pain or Fever Meropenem 500 mg/ Syringe 10 mls @ 2 mls/min 08/22/24 15:00 08/22/24 15:53 IV 08/25/24 14:59 2 mls/min Q8H DOREEN Administration Protocol Levetiracetam 500 mg 08/17/24 21:00 08/22/24 09:58 Levetiracetam 500 Mg Tab PO 09/16/24 20:59 500 mg BID DOREEN Administration Losartan Potassium 100 mg 08/18/24 09:00 08/22/24 09:56 Losartan Potassium 50 Mg Tab PO 09/17/24 08:59 100 mg DAILY DOREEN Administration Protocol Magnesium Oxide 400 mg 08/18/24 09:00 08/22/24 09:56 Magnesium Oxide 400 Mg Tab PO 09/17/24 08:59 400 mg QAM DOREEN Administration Polyethylene Glycol 17 gm 08/22/24 09:00 08/22/24 09:41 Polyethylene (Miralax) 17 Gm Pack PO 09/21/24 08:59 17 gm DAILY DOREEN Administration Senna/Docusate Sodium 1 tab 08/21/24 17:00 08/22/24 09:56 Docusate Sodium/Senna 50/8.6mg Tab PO 09/20/24 16:59 1 tab QAM DOREEN Administration Sodium Chloride 4 ml 08/18/24 19:00 08/22/24 06:48 Sodium Chlor 7% 4 Ml Neb NEB 09/17/24 18:59 4 ml BIDR DOREEN Administration
[2024-08-22 16:39] LABS: Appearance Urine Cloudy (Clear); Bacteria Urine Automated None Seen (None Seen); Bilirubin Urine Negative (Negative); Blood Urine 2+ (Negative); Color Urine Yellow; Epithelial Cell Urine Auto 0-2 /hpf (0-2); Glucose Urine UA Negative (Negative); Ketones Urine Trace (Negative); Leukocyte Esterase Urine Negative (Negative); Nitrite Urine Negative (Negative); Protein Urine 3+ (Negative); RBC Urine Automated >20 /hpf (0-2); Specific Gravity Urine 1.022 (1.000-1.030); Urobilinogen Urine Negative (Negative); WBC Urine Automated 0-5 /hpf (0-5); pH Urine 5.5 (4.5-7.5)
[2024-08-22] MEDS ORDERED: VANCOMYCIN CONSULT ACTIVE PRN (16:43)
[2024-08-22 16:49] LABS: Albumin Level 3.5 gm/dl (3.4-5.0); Bilirubin Direct 0.2 mg/dl (0-0.2); Bilirubin,Total 0.7 mg/dl (0.2-1.0); C Reactive Protein 12.24 mg/dl (0-0.5); Total Protein 7.1 gm/dl (6.0-8.3)
[2024-08-22 16:59] LABS: Procalcitonin 0.45 ng/ml (0-0.5)
[2024-08-22] MEDS ORDERED: dexAMETHasone**PF** 10 MG/ML VIAL IV SCH (17:00)
--- NOTE | 2024-08-22 17:11 | CT Scan Report ---
CT head without contrast History: Altered mental status Comparison: None Technique: Using multidetector thin collimation helical acquisition technique, axial, coronal and sagittal CT images from the skull base to the vertex were obtained without intravenous contrast. Dose reduction techniques were achieved by using automatic exposure control and/or adjustment of mA and/or kV according to patient size and/or use of iterative reconstruction technique. Findings: No intracranial hemorrhage, mass-effect, or midline shift. The ventricles are proportionate to the cerebral sulci. Chronic appearing infarct in the left parieto-occipital lobe, as well as chronic lacunar infarct in the right basal ganglia, otherwise the remaining wang to white matter differentiation of the cerebral hemispheres is preserved. The basal cisterns are patent. Small area/fluid level suggesting right maxillary sinusitis. Mastoid air cells are clear. Impression: No acute intracranial pathology. Scattered chronic infarcts are seen, as above. Electronically signed by Rubén Langley 08-22-2024 5:11 PM
--- NOTE | 2024-08-22 17:11 | CT Scan Report ---
EXAMINATION: CT of the abdomen and pelvis performed without contrast TECHNIQUE: Helical CT images from the lung bases through the symphysis pubis were obtained without contrast. Coronal and sagittal reformatted images were generated at a workstation for further assessment. Dose reduction techniques were achieved by using automatic exposure control and/or adjustment of mA and/or kV according to patient size and/or use of iterative reconstruction technique. COMPARISON: 05/06/2024 HISTORY: Abdominal pain FINDINGS: Lower chest: Mild patchy bibasilar opacities seen in the lungs. There is mild bibasilar subsegmental atelectasis which is possibly postobstructive. The heart is enlarged. AICD leads are in place. Liver: There is a right hepatic lobe cyst. No suspicious liver lesions. Gallbladder: No gallstones. No evidence of acute cholecystitis. Spleen: Normal size. Pancreas: No suspicious pancreatic lesions. The pancreatic duct is not dilated. Adrenal glands: No adrenal nodules. Kidneys: No hydronephrosis or obstructing renal stones. Few, punctate bilateral nonobstructing renal stones. Bladder / Pelvic organs: Unremarkable. Bowel: No bowel obstruction. No abnormal bowel wall thickening. The appendix is not definitely well-seen. Sigmoid diverticulosis without diverticulitis. Lymph nodes: No retroperitoneal, mesenteric, or pelvic lymphadenopathy. Peritoneum / Retroperitoneum: No free fluid or air within the abdomen. Vessels: No infrarenal aortic aneurysm. Heavy aortoiliac calcification. Bones and soft tissues: No suspicious lesion in the bones. Healing callus and bony remodeling for known fractures of the left inferior and superior pubic rami. Left sacral insufficiency fracture. IMPRESSION: Mild patchy bibasilar opacities seen in the lower lungs, most consistent with an atypical infectious process. No evidence for an infectious process in the abdomen or pelvis. Electronically signed by Rubén Langley 08-22-2024 5:11 PM
[2024-08-22 17:24] LABS: Lyme Screen Rflx Confirmation Negative (Negative)
[2024-08-22] MEDS ORDERED: VANCOMYCIN HCL 1,250 MG in SODIUM CHLORIDE 0.9% 250 ML IV ONE (17:30)
[2024-08-22] MEDS ORDERED: VANCOMYCIN HCL 1,250 MG in SODIUM CHLORIDE 0.9% 250 ML IV SCH (17:30)
--- NOTE | 2024-08-22 17:57 | XRay Report ---
EXAM:Radiograph of the Chest 1 View INDICATION: Hypoxia. TECHNIQUE: Frontal view of the chest. COMPARISON:08/20/2024 FINDINGS: Lungs and pleural spaces: Hyperinflation with increased patchy airspace disease in the right lung base superimposed on generalized at least partially chronic interstitial scarring. There is stable left basilar airway thickening and atelectasis. No pleural effusion or pneumothorax. Heart:Stable enlargement and pacing device. Mediastinum: Normal contour. Bones/joints: No fracture, erosion or dislocation. Soft tissues: No abnormality noted. No radiopaque foreign body noted. Upper abdomen: No abnormality noted. IMPRESSION: 1. Worsening patchy infiltrate in the right lung base. 2. Diffuse interstitial thickening, left basilar airway thickening and atelectasis are stable. Interstitial changes may be chronic or could reflect acute on chronic change such as superimposed vascular congestion or pneumonitis. ACT 112: Negative or not required by law. Electronically signed by Britany Joseph 08-22-2024 4:47 PM
[2024-08-22] MEDS ORDERED: MEROPENEM 2,000 MG in SYRINGE 0 ML IV SCH (18:00)
[2024-08-22] MEDS: PLASMA-LYTE A 1,000 ML IV SCH (18:05)
[2024-08-22] MEDS: ACYCLOVIR SOD 550 MG in DEXTROSE 5% 100 ML IV SCH (18:06)
[2024-08-22] MEDS: DEXAMETHASONE IV SCH (18:07)
[2024-08-22] MEDS: MEROPENEM 2,000 MG in SODIUM CHLORIDE 0.9% 60 ML IV SCH (18:09)
[2024-08-22 18:29] LABS: Adenovirus PCR Not Detected (NotDetected); Bordetella parapertussis PCR Not Detected (NotDetected); Bordetella pertussis PCR Not Detected (NotDetected); Chlamydia pneumoniae PCR Not Detected (NotDetected); Coronavirus 229E PCR Not Detected (NotDetected); Coronavirus CoV-2 (COVID19)PCR Not Detected (NotDetected); Coronavirus HKU1 PCR Not Detected (NotDetected); Coronavirus NL63 PCR Not Detected (NotDetected); Coronavirus OC43PCR Not Detected (NotDetected); Human Metapneumovirus PCR Not Detected (NotDetected); Influenza A (H3) PCR DETECTED (NotDetected); Influenza B PCR Not Detected (NotDetected); Mycoplasma pneumoniae PCR Not Detected (NotDetected); Parainfluenza Virus 1 PCR Not Detected (NotDetected); Parainfluenza Virus 2 PCR Not Detected (NotDetected); Parainfluenza Virus 3 PCR Not Detected (NotDetected); Parainfluenza Virus 4 PCR Not Detected (NotDetected); Respiratory Syncytial VirusPCR Not Detected (NotDetected); Rhinovirus/Enterovirus PCR Not Detected (NotDetected)
[2024-08-22] MEDS ORDERED: PROPOFOL BOLUS FROM BAG IV PRN (18:31)
[2024-08-22] MEDS ORDERED: STAT IV Infusion **Titration per Protocol STA (18:31)
--- NOTE | 2024-08-22 18:38 | Procedure Note ---
Procedure Note Date of Service August 22, 2024 INTUBATION PROCEDURE NOTE: Dr. Bruce Melo A time-out was completed verifying correct patient, procedure, site, positioning. Patient was evaluated and required intubation for metabolic encephalopathy and hypoxemia. Sedative agent used: 60 mg of ketamine Paralysis agent used: 50 mg of rocuronium Emergent consent was implied given patients rapidly declining clinical status and need for airway protection. Number of attempts: 1 The patient was prepared in the appropriate fashion. Sedation was achieved utilizing ketamine and rocuronium. The patient was easily ventilated using [id number] to achieve adequate oxygenation. A 7.5 [place] endotracheal tube was placed under glide scope guidance to 24 cm at the lip. The stylette was removed and balloon was inflated with 10mL of air. Appropriate Colorimetric change was appreciated. Bilateral breath sounds were heard without air sounds in the abdomen. Post Intubation Chest X-ray ordered. [facility] [place] Procedure Codes (Charges) Resuscitation Resuscitation: 07783 Endotracheal Intubation, emergency Coding CPT Codes Resuscitation - Resuscitation: 41260 Endotracheal Intubation, emergency ([id number]) Additional Codes Date of Service (PG.[email or web address])
[2024-08-22] MEDS: RAPID SEQUENCE INDUCTION BAG ONE (18:47)
[2024-08-22] MEDS: propofoL 1,000 MG/100 ML VIAL IV SCH (18:47)
[2024-08-22] MEDS: fentaNYL citrate 2,500 MCG/250 ML BAG IV SCH (18:49)
[2024-08-22] MEDS: PROPOFOL IV EMULSION 10 MG/ML 100 ML VIAL IV ONE (18:49)
[2024-08-22] MEDS: fentaNYL citrate 2,500 MCG/250 ML BAG IV ONE (18:49)
--- NOTE | 2024-08-22 18:59 | Critical Care Consultation ---
Date of Consultation August 22, 2024 Assessment & Plan (1) Acute encephalopathy: (2) Acute hypoxemic respiratory failure: (3) Sepsis: (4) Influenza: (5) Pneumonitis: Plan Patient with worsening sepsis and encephalopathy presenting to the ICU. Patient intubated for airway protection. Lumbar puncture performed by me was unsuccessful. Requesting anesthesiology assistance who is attempting lumbar puncture now to evaluate for encephalitis and meningitis. Initiating meningitis dosing of antibiotics and antiviral therapy. Also initiating dexamethasone for potential meningitis. Repeat bio fire today was positive for influenza A. Will hold on initiating Tamiflu given QTc prolongation. Will add doxycycline to her regimen for atypical coverage. She does have a history of potential hives related to doxycycline, but benefits outweigh risk at this point and this was discussed with the patient's who is in agreement. Additionally, patient is protecting airway at this time and has been started on dexamethasone which should hopefully mitigate any potential allergic reaction related to doxycycline. As the patient is now ventilated for airway protection and hypoxemia, will proceed with lung protective ventilation strategy and pulmonary toileting. Consider bronchoscopy tomorrow depending on clinical picture to evaluate for superimposed bacterial infection. Patient with a history of ischemic stroke and intracranial hemorrhage. Will continue low-dose aspirin for the time being. Will continue Keppra and check Keppra level. Patient's was extensively updated regarding the patient's condition and current intubation status. Greatly appreciate the input of the hospitalist service, anesthesia with assistance of lumbar puncture and infectious disease input. CRITICAL CARE TIME I have personally spent 68 minutes of critical care time in the direct management of this patient. This is a life/limb threatening event. This includes time spent evaluating patient, direct bedside care, chart review, placing orders, interpretation of diagnostic studies, discussion with consultants, patient, and family members, as well as other required patient management activities. This time is exclusive of all separately billable procedures, and teaching time and separate from and in addition to any other critical care service time. History of Present Illness Reason for Consultation: Worsening metabolic encephalopathy and hypoxemia Attending Physician: Anisa Guajardo MD History of Present Illness 74-year-old female with a history of myotonic dystrophy, pacemaker, QTc prolongation, atrial flutter, type 2 diabetes mellitus, intraparenchymal brain hemorrhage, emphysema and JG who is presenting to the ICU due to worsening metabolic encephalopathy throughout the day and worsening hypoxemia. Patient minimally responsive on my evaluation and will occasionally open her eyes spontaneously when her name is called. She has been having spiking fevers throughout the day. She has moved to the ICU status post CT head today for closer monitoring and potential intubation. CT head today revealed no evidence of intracranial hemorrhage or mass effect. Small area of an air-fluid level in the right maxillary sinus. Allergies Allergy/AdvReac Type Severity Reaction Status Date / Time Iodinated Contrast Media Allergy Intermediate Hives Verified 08/12/24 16:23 mold Allergy Intermediate SNEEZING/CO Verified 08/12/24 16:23 NGESTION moxifloxacin [From Avelox] Allergy Intermediate ITCHING/YEAST Verified 08/12/24 16:23 INFECTION Tetracyclines Allergy Intermediate ? ITCH ALL Verified 08/12/24 16:23 OVER, PT NOT SURE adhesive Allergy Mild ITCHY RASH Verified 08/12/24 16:23 Penicillins Allergy Rash Verified 08/12/24 16:23 Sulfa (Sulfonamide Allergy Swelling Verified 08/12/24 16:23 Antibiotics) of Lip/Tongue/Throat amlodipine AdvReac Intermediate FATIGUE/CON Verified 08/12/24 16:23 STIPATION cefuroxime AdvReac Intermediate CAUSED C. Verified 08/12/24 16:23 DIFF INFECTION Home Medications Medication Instructions Recorded Confirmed Type fluticasone propionate 50 2 spray intranasal DAILY PRN 04/13/22 08/17/24 History mcg/actuation nasal Allergy Symptoms spray,suspension (Flonase Allergy Relief) albuterol sulfate 90 mcg/actuation 2 puff inhalation Q4H PRN 10/25/22 08/17/24 Rx aerosol inhaler (Ventolin HFA) Shortness Of Breath #3 Inhalers fluticasone fur. 100 mcg-umeclid 1 inh inhalation DAILY #3 Inhalers 12/25/23 08/17/24 Rx 62.5 mcg-vilant 25 mcg inhalat.powder (Trelegy Ellipta) aspirin 81 mg chewable tablet 81 mg PO DAILY 02/07/24 08/17/24 History levetiracetam 500 mg tablet 500 mg PO BID 02/07/24 08/17/24 History (Keppra) multivitamin 1 tab PO DAILY 02/07/24 08/17/24 History folic acid 1 mg tablet 1 mg PO BID 04/26/24 08/17/24 History hydralazine 50 mg tablet 100 mg (2 x 50 mg) PO TID #90 tabs 05/21/24 08/17/24 Rx cholecalciferol (vitamin D3) 50 50 mcg PO DAILY 06/29/24 08/17/24 History mcg (2,000 unit) capsule magnesium oxide 400 mg (241.3 mg 400 mg PO QAM #0 tabs 07/01/24 08/17/24 Rx magnesium) tablet metoprolol succinate 50 mg 50 mg PO DAILY #30 tabs 07/01/24 08/17/24 Rx tablet,extended release 24 hr (Toprol XL) metformin 500 mg tablet 200 mg PO BID 08/12/24 08/17/24 History prednisone 50 mg tablet 50 mg PO DAILY #3 tabs 08/14/24 08/17/24 Rx olmesartan 40 mg tablet 40 mg PO DAILY 08/17/24 08/17/24 History Patient History Medical History Subarachnoid hemorrhage Acute intracerebral hemorrhage Shoulder pain, right Former smoker IBS (irritable bowel syndrome) Vitamin D deficiency History of small bowel obstruction (~2013) History of colon polyps History of skin cancer Antibiotic-induced yeast infection PRONE TO YEAST INFECTIONS WITH ANTIBIOTIC USE Seasonal allergies Lung nodules MONITORS Adrenal adenoma Carcinoid tumor of colon History of claustrophobia MILD Nasal cavity polyp Mild obstructive sleep apnea CPAP Chronic rhinitis Langerhans cell histiocytosis ? Gastroparesis DENIES GERD (gastroesophageal reflux disease) Surgical History History of surgery REMOTE HX FOR REMOVAL OF SKIN CA History of Mohs micrographic surgery for skin cancer History of lung biopsy H/O hysterectomy with oophorectomy S/P thoracotomy DENIES , REPORTS HX LUNG BIOPSY Hx of exploratory laparotomy HX BOWEL OBSTRUCTION S/P appendectomy H/O: hysterectomy TOTAL Family History Father Myocardial infarction Hypertension Mother Congestive heart failure Hypertension Grandfather (Paternal) Myocardial infarction Grandfather (Maternal) Myocardial infarction Grandmother Colorectal cancer Other Atrial fibrillation Family history of diabetes mellitus Social History Smoking Status: Never smoker Tobacco Type: Cigarettes Age Started Using Tobacco: 16; Age Quit Using Tobacco: 63; packs per day: 0.75; Second Hand Exposure: No; Do You Dip or Chew Tobacco: No; Hx Alcohol Use: Yes Alcohol type: wine Hx Substance Use: No Preferred Language: Guamanian Communication Ability: Effective Night Manager Required: No Beliefs That Will Affect Care: None marital status: Current Living Situation: Spouse current occupational status: retired Feels Safe at Home: Yes Seatbelt Use: always Sunscreen Use: Yes Assistive Devices: CPAP, Oxygen - Continuous and Walker Review of Systems Review of Systems: Unobtainable due to reduced consciousness Physical Exam Physical Exam: Constitutional: Patient in severe distress and obtunded. Eyes: Pupils are equal round and reactive to light. Conjunctivae are normal. Anicteric sclera. Ears nose, mouth and throat: Mallampati class 2. Normal posterior oropharynx. Uvula is midline. Neck: Trachea is midline. Visual inspection is normal. Respiratory: Bilateral crackles and rales. Tachypneic. Mild retractions. Cardiovascular: Regular rate and rhythm. No murmurs. No edema. Gastrointestinal: Normal bowel sounds, soft, nontender and nondistended. No hepatosplenomegaly noted. Musculoskeletal: No cyanosis. Patient is able to move all extremities. Strength is 5 out of 5 in the upper and lower extremities. Skin: No rashes, warm dry and intact. Neurologic: Obtunded with flaccid paralysis diffusely. Does open her eyes spontaneously to vocal command. Psychiatric: Unable to assess. Results & Data Results & Data Vital Signs (Past 12 Hours) Vital Signs Temp Pulse Pulse Resp BP BP BP 08/22/24 17:33 38.3 C H 82 26 H 08/22/24 17:32 08/22/24 17:09 80 26 H 08/22/24 17:03 134/57 L 08/22/24 15:59 37.7 C H 08/22/24 14:54 08/22/24 14:46 38.1 C H 80 26 H 152/77 H 08/22/24 10:45 37.3 C 80 20 148/72 H 08/22/24 08:00 08/22/24 07:30 81 20 154/80 H Pulse Ox O2 Del Method O2 Flow Rate 08/22/24 17:33 96 Nasal Cannula 6 08/22/24 17:32 Nasal Cannula 6 08/22/24 17:09 94 08/22/24 17:03 08/22/24 15:59 08/22/24 14:54 88 L Nasal Cannula 3 08/22/24 14:46 91 Nasal Cannula 5 08/22/24 10:45 91 Nasal Cannula 08/22/24 08:00 CPAP 5 08/22/24 07:30 92 CPAP Coding Level of Care Code 81743 CRITICAL CARE 1ST 30-74M Diagnoses Acute encephalopathy G93.40 Acute hypoxemic respiratory failure J96.01 Sepsis A41.9 Influenza J11.1 Pneumonitis J98.4
--- NOTE | 2024-08-22 19:06 | XRay Report ---
EXAM: Radiograph of the Chest 1 View INDICATION: Intubation. TECHNIQUE: Frontal view of the chest. COMPARISON: 08/17/2024 FINDINGS: Lungs and pleural spaces: Stable interstitial pending and right basilar infiltrate. Probable infiltrate left midlung. No pleural effusion or pneumothorax. Heart: Stable enlargement and pacing device. Mediastinum: Normal contour. Bones/joints: No fracture, erosion or dislocation. Soft tissues: No abnormality noted. No radiopaque foreign body noted. Tubes, lines and devices: The endotracheal tube terminates 3.6 cm above the ángela. Watchman device present. Upper abdomen: No abnormality noted. IMPRESSION: 1. Lines and tubes as above. 2. Stable diffuse interstitial and right basilar infiltrate. 3. Question new small infiltrate in the left midlung. ACT 112: Negative or not required by law. Electronically signed by Britany Joseph 08-22-2024 7:05 PM
--- NOTE | 2024-08-22 19:13 | Anesthesia Procedure Note ---
Anesthesia Procedure Note Neuraxial Placement Note Consent: Risk / Benefits Reviewed With: Informed Consent Obtained Monitors attached: Blood Pressure Oxygen delivery method: Other (intubated) Premedication: None Position: Right lateral Surgical Prep: Hand hygeine: Soap and water Equipment/Supplies: Cap, Mask, Sterile gloves, Sterile drapes and Sterile procedures used Skin prep: Chloraprep Site: Midline Neuraxial placement technique: Other (lumbar puncture) Needle: 22g x 3.5 inch Sprotte (from lp kit) Attempts: 2 Procedure Summary: consulted by icu for failed LP. obtained csf at l34 without complication. Post-Procedure: Pt hemodynamically stable and No complication
[2024-08-22 19:33] LABS: Total Protein CSF 57.7 mg/dl (15-45)
--- NOTE | 2024-08-22 19:37 | Procedure Note ---
Procedure Note Date of Service August 22, 2024 Procedure: Internal Jugular Central Line Placement Proceduralist: Yuval JAVIER ([facility] Attending: Dr. Melo Indication: Central Drug Administration, Poor Venous Access, Multiple Lab Draws Necessary, etc. Anesthesia:[x]Lidocaine 1% Consent was obtained over phone, signed and witnessed, by Attending Dr. Melo Indication, risks, and benefits were explained at length. A time-out was completed verifying correct patient, procedure, site, po sitioning, and implants(s) or special equipment if applicable. Patients RIGHT Neck was scouted with ultrasound, once appropriate target vessel was identified, the site was cleansed and draped in the typical sterile fashion using Chloraprep. The Internal Jugular Vein and Carotid Artery were oce again identified using ultrasound. The superficial tissue was anesthetized using 5 mL of 1% lidocaine without epinephrine under direct visualization with the ultrasound. After adequate anesthetization was achieved, the Internal Jugular vein was cannulated under direct ultrasound guidance using an introducer needle on a syringe. Good venous blood return was maintained prior to removal of syringe from introducer needle. Using Seldinger Technique, a guide wire was advanced through the introducer needle without resistance. The introducer needle was removed and ultrasound images were obtained of the guide wire within the Internal Jugular Vein. A small incision was made in penetrating fashion at the guide wire insertion site utilizing an 11 blade scalpel. The dilator was advanced to the vessel without resistance. The dilator was exchanged for the triple lumen catheter which was advanced into the vessel without resistance. The guide wire was removed intact from the catheter without issue. Claves were placed on each catheter tip with confirmation of good blood flow from each lumen. Each port was easily flushed with sterile saline. The catheter was placed at 18 cm and sutured in place. BioPatch was applied to the catheter and a sterile Tegaderm dressing was applied over the catheter with careful attention to sterility. Patient tolerated procedure well. No immediate complications were met. Post procedure x-ray was completed, placement was appropriate and no pneumothorax was noted. Images obtained are saved for permanent record Artery AND Vein visualized: YES Compressible Vein: YES Guidewire or Short Catheter seen in vein prior to dilation: YES Images obtained are saved NOT saved to the permanent record. [facility] [place] Procedure Codes (Charges) Tubes, Drains, and Vasc Access Procedure 1: Tubes, Drains, and Vasc Access: [id number] Insertion Of Non-tunneled Catheter Age 5 Yrs> Coding CPT Codes Tubes, Drains, and Vasc Access - Tubes, Drains, and Vasc Access: [id number] Insertion Of Non-tunneled Catheter Age 5 Yrs> ([id number]) Additional Codes Date of Service ([facility].[email or web address])
[2024-08-22 19:45] LABS: Appearance CSF Clear; CSF Count Tube # 3; CSF Xanthrochromic No xanthochromia; Color CSF Colorless; Red Blood Cell CSF Manual 53 (0-); White Blood Cell CSF Manual 0 (0-5)
[2024-08-22 20:30] LABS: iSTAT Allen Test Pass; iSTAT Art Bld Gas pCO2 Correct 55 mmHg (35-46); iSTAT Art Bld Gas pH Corrected 7.339 (7.35-7.45); iSTAT Arterial Blood Gas HCO3 29 meg/L (19-24); iSTAT Arterial Blood Gas pCO2 55 mmHg (35-46); iSTAT Arterial Blood Gas pH 7.34 (7.35-7.45); iSTAT Arterial Blood Gas pO2 102 mmHg (80-95); iSTAT Arterial Blood Gas pO2 C 101; iSTAT Carbon Dioxide 31 mmol/L (24-31); iSTAT FiO2 60 %; iSTAT Hematocrit 29 % (37-47); iSTAT Hemoglobin 9.9 g/dl (12.0-16.0); iSTAT Potassium 3.8 mmol/L (3.3-5.0); iSTAT Sample Type Arterial; iSTAT Site L Radial; iSTAT Sodium 138 mmol/L (135-144); iSTAT SpO2 95
[2024-08-22] MEDS: DOXYCYCLINE HYCLATE 100 MG in DEXTROSE 5% MINI-B 100 ML IV SCH (20:58)
[2024-08-22] MEDS: levETIRAcetam 500 MG/5 ML VIAL IV SCH (20:58)
[2024-08-22] MEDS ORDERED: OSELTAMIVIR PHOSPHATE 75 MG CAP PO SCH (21:00)
[2024-08-22] MEDS: VANCOMYCIN HCL 1,000 MG/270 ML BAG IV SCH (21:01)
[2024-08-22 21:10] LABS: Cryptococcus neoformans/ga PCR Not Detected (NotDetected); Cytomegalovirus PCR Not Detected (NotDetected); Enterovirus PCR Not Detected (NotDetected); Escherichia coli K1 PCR Not Detected (NotDetected); Haemophilius influenzae PCR Not Detected (NotDetected); Herpes Simplex Virus 1 PCR Not Detected (NotDetected); Herpes Simplex Virus 2 PCR Not Detected (NotDetected); Human Herpes Virus 6 PCR Not Detected (NotDetected); Human Parechovirus PCR Not Detected (NotDetected); Listeria monocytogenes PCR Not Detected (NotDetected); Neisseria meningitidis PCR Not Detected (NotDetected); Streptococcus agalactiae PCR Not Detected (NotDetected); Streptococcus pneumoniae PCR Not Detected (NotDetected); Varicella Zoster Virus PCR Not Detected (NotDetected)
--- NOTE | 2024-08-22 22:45 | XRay Report ---
Exam(s): XR CXR 1 VIEW EXAM: XR Chest, 1 View CLINICAL HISTORY: Reason for exam: s/p line placment rt. IJ- eval line and lungs. TECHNIQUE: Frontal view of the chest. COMPARISON: Earlier on the same date FINDINGS: Lungs: Right basilar atelectasis. Pleural space: Unremarkable. No pneumothorax. Heart: Unremarkable. No cardiomegaly. Mediastinum: Unremarkable. Normal mediastinal contour. Bones/joints: Advanced degenerative changes of the left AC joint. No acute fracture. Tubes, lines and devices: Endotracheal tube with the tip above the ángela. Right-sided catheter with its tip upper SVC. Left chest wall dual lead intracardiac device. IMPRESSION: No acute findings in the chest. Electronically signed by: Steve Vila MD 08/22/24 22:43 PM
[2024-08-23 04:46] LABS: Hematocrit (blood only) 27.1 % (37.0-47.0); Hemoglobin 8.5 g/dl (12.0-16.0); Immature Granulocytes # (auto) 0.13 K/uL (0.01-0.20); Immature Granulocytes % (auto) 1.5 %; Lymphocytes # (auto) 0.44 K/uL (1.20-3.40); Mean Corpuscular Hemoglobin 26.5 pg (25.0-34.0); Mean Corpuscular Hgb Conc 31.4 g/dL (32.0-36.0); Mean Corpuscular Volume 84.4 fL (80.0-100.0); Monocytes # (auto) 0.33 K/uL (0.11-0.59); Monocytes % (auto) 3.7 %; Neutrophils # (auto) 7.94 K/uL (1.40-6.50); Neutrophils % (auto) 89.8 %; Platelet Count 279 K/uL (130-400); RDW Coefficient of Variation 14.7 % (11.5-14.5); RDW Standard Deviation 45.9 fL (36.4-46.3); Red Blood Count 3.21 M/uL (4.20-5.40); White Blood Count 8.84 K/ul (4.8-10.8)
[2024-08-23 04:58] LABS: Albumin Level 3.3 gm/dl (3.4-5.0); BUN Creatinine Ratio 41.7 (10-20); Bilirubin,Total 0.5 mg/dl (0.2-1.0); Calcium 8.8 mg/dl (8.6-10.3); Creatinine Clr Calc Pharmacy 41.4 ml/min; Globulin 3.3 gm/dl (2.5-4.0); Magnesium 2.4 mg/dl (1.7-2.4); Phosphorus 3.4 mg/dl (2.5-4.9); Potassium 3.9 mmol/L (3.5-5.1); Total Protein 6.6 gm/dl (6.0-8.3)
[2024-08-23] MEDS ORDERED: bisacodyL 10 MG SUPP PR PRN (07:41)
--- NOTE | 2024-08-23 08:11 | XRay Report ---
EXAM: XR chest 1V portable CLINICAL HISTORY: AM F/U. TECHNIQUE: X-ray images of the chest obtained in frontal projection. COMPARISON: Prior X-ray dated 08/22/2024 for comparison. FINDINGS: ETT with tip 3.6 cm above the ángela. Right CVL and NG tube in situ. Left side cardiac pacemaker. Pulmonary Parenchyma: Stable prominent markings in bilateral lungs and subtle opacities in basal zone. No pulmonary nodules identified. No evidence of pleural effusion or pleural thickening. Heart and Mediastinum: Cardiomegaly. No mediastinal widening or masses. No hilar or mediastinal lymphadenopathy. Bony Thorax: Bony thorax appears intact without fractures or deformities. Soft Tissues: Soft tissues overlying the chest wall are unremarkable. IMPRESSION: 1. ETT with tip 3.6 cm above the ángela. 2. Right CVL and NG tube in situ. 3. Left side cardiac pacemaker. 4. Cardiomegaly. 5. Stable prominent markings in bilateral lungs and subtle opacities in basal zones. Electronically signed by Yas Jenkins 08-23-2024 08:11 AM
--- NOTE | 2024-08-23 09:55 | Critical Care Progress Note ---
Date of Service August 23, 2024 Assessment & Plan (1) Acute encephalopathy: (2) Acute hypoxemic respiratory failure: (3) Sepsis: (4) Influenza: (5) Pneumonitis: Plan Patient intubated 08/22/2024 due to hypoxemia and severe encephalopathy. She tested positive for influenza A. Holding on Tamiflu given significant QTc prolongation and minimal ventilator settings. 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 Fortunately, fever curve is decreasing. Discontinued meningitis dose of antibiotics and antivirals as CSF panel was negative. Protein and glucose was mildly elevated on CSF suggestive of possible encephalitis/inflammation. Patient receiving IV Keppra for prior history of seizure related to hemorrhagic stroke. Continue aspirin for prior history of ischemic stroke. Will start tube feeds while intubated. Continue meropenem and doxycycline for pneumonia. Urine cultures earlier this admission revealed Enterococcus and Pseudomonas. Appreciate ID input regarding treatment of UTI. Chest x-ray reviewed from today reveals endotracheal tube and central line in appropriate positions. Stable prominent bilateral lung markings. No discrete infiltrate noted. Discussed bronchoscopy with the patient's for airway clearance and culture sampling. Patient's understands risks and benefits and we will proceed with bronchoscopy today. Chemical DVT prophylaxis on hold due to traumatic lumbar puncture yesterday. Will initiate DVT prophylaxis likely tomorrow. Continue SCDs for the time being. Fortunately, repeated CT head imaging this hospitalization has not shown any recurrence of hemorrhagic bleed or mass effect. Antihypertensives on hold while patient is intubated and sedated. Continue nebulized bronchodilator therapy to help with airway clearance. Start tube feeds as above. Patient discussed on multidisciplinary rounds with respiratory therapy, bedside nursing, ICU pharmacist and patient's . CRITICAL CARE TIME I have personally spent 44 minutes of critical care time in the direct management of this patient. This is a life/limb threatening event. This includes time spent evaluating patient, direct bedside care, chart review, placing orders, interpretation of diagnostic studies, discussion with consultants, patient, and family members, as well as other required patient management activities. This time is exclusive of all separately billable procedures, and teaching time and separate from and in addition to any other critical care service time. Admission and Anticipated Discharge Date Admission Date: August 17, 2024 Subjective Patient seen and examined. Fever curve is improved. Patient was positive for influenza A. CSF was negative for meningitis. Hemodynamically stable not requiring pressors. Central line in place. Sedation has been discontinued and patient becomes agitated and combative with sedation off. Spontaneously moves her limbs. at bedside. Urine output has been adequate. Review of Systems Review of Systems: All systems reviewed & are unremarkable except as noted in HPI & below Physical Exam Physical Exam: Constitutional: Frail and elderly appearing. Thin. Eyes: Pupils are equal round and reactive to light. Conjunctivae are normal. Anicteric sclera. Ears nose, mouth and throat: Intubated on the ventilator. Neck: Trachea is midline. Visual inspection is normal. Respiratory: Bilateral crackles. No significant wheezes. Cardiovascular: Regular rate and rhythm. No murmurs. No edema. Gastrointestinal: Normal bowel sounds, soft, nontender and nondistended. No hepatosplenomegaly noted. Musculoskeletal: No cyanosis. Patient is able to move all extremities. Strength is 5 out of 5 in the upper and lower extremities. Skin: No rashes, warm dry and intact. Neurologic: Spontaneously moves extremities with sedation off. Psychiatric: Unable to assess given intubation and sedation status. Results & Data Results & Data Vital Signs (Past 12 Hours) Vital Signs Temp Pulse Resp BP Pulse Ox Pulse Ox O2 Del Method 08/23/24 07:30 80 22 95 08/23/24 05:36 36.7 C 80 20 95 08/23/24 05:30 107/60 08/23/24 05:30 107/60 08/23/24 05:30 107/60 08/23/24 05:27 36.7 C 80 20 96 08/23/24 05:15 111/62 08/23/24 05:15 111/62 08/23/24 05:15 36.7 C 80 21 95 08/23/24 05:03 36.7 C 80 21 96 08/23/24 05:00 113/57 L 08/23/24 04:51 36.7 C 80 20 96 08/23/24 04:45 105/58 L 08/23/24 04:42 36.7 C 80 21 96 08/23/24 04:30 36.7 C 80 23 95 08/23/24 04:30 111/60 08/23/24 04:15 103/64 08/23/24 04:15 103/64 08/23/24 04:15 103/64 08/23/24 04:09 36.7 C 80 21 96 08/23/24 04:00 36.7 C 80 22 95 08/23/24 04:00 112/59 L 08/23/24 04:00 112/59 L 08/23/24 03:55 08/23/24 03:55 96 Mechanical Vent 08/23/24 03:45 109/61 08/23/24 03:38 22 96 08/23/24 03:33 36.7 C 80 20 95 08/23/24 03:30 36.7 C 80 21 95 08/23/24 03:30 107/64 08/23/24 03:30 107/64 08/23/24 03:30 107/64 08/23/24 03:30 107/64 08/23/24 03:15 36.6 C 80 21 08/23/24 03:15 107/62 08/23/24 03:03 36.6 C 80 20 94 08/23/24 03:00 134/74 08/23/24 03:00 134/74 08/23/24 03:00 134/74 08/23/24 03:00 134/74 08/23/24 02:45 107/61 08/23/24 02:45 107/61 08/23/24 02:45 107/61 08/23/24 02:24 36.7 C 80 23 96 08/23/24 02:09 36.7 C 80 23 96 08/23/24 01:45 105/57 L 08/23/24 01:45 105/57 L 08/23/24 01:36 36.7 C 80 20 97 08/23/24 01:33 36.7 C 80 21 96 08/23/24 01:30 109/60 08/23/24 01:21 36.7 C 80 21 96 08/23/24 01:06 36.7 C 80 22 97 08/23/24 00:45 36.7 C 80 23 96 08/23/24 00:45 111/60 08/23/24 00:15 106/62 08/23/24 00:12 36.8 C 80 24 96 08/23/24 00:00 109/60 08/23/24 00:00 08/23/24 00:00 96 Mechanical Vent 08/22/24 23:33 36.9 C 82 19 96 08/22/24 23:30 36.9 C 80 22 95 08/22/24 23:30 110/61 08/22/24 23:22 80 08/22/24 23:15 36.9 C 80 20 94 08/22/24 23:15 106/59 L 08/22/24 23:15 106/59 L 08/22/24 23:03 37.0 C 80 19 95 08/22/24 23:03 80 21 95 08/22/24 23:00 109/63 08/22/24 23:00 109/63 08/22/24 22:51 36.9 C 80 20 94 08/22/24 22:45 111/60 08/22/24 22:45 111/60 08/22/24 22:39 36.9 C 80 22 94 08/22/24 22:03 36.9 C 82 21 93 08/22/24 22:00 112/65 08/22/24 22:00 112/65 FiO2 08/23/24 07:30 50 08/23/24 05:36 08/23/24 05:30 08/23/24 05:30 08/23/24 05:30 08/23/24 05:27 08/23/24 05:15 08/23/24 05:15 08/23/24 05:15 08/23/24 05:03 08/23/24 05:00 08/23/24 04:51 08/23/24 04:45 08/23/24 04:42 08/23/24 04:30 08/23/24 04:30 08/23/24 04:15 08/23/24 04:15 08/23/24 04:15 08/23/24 04:09 08/23/24 04:00 08/23/24 04:00 08/23/24 04:00 08/23/24 03:55 50 08/23/24 03:55 08/23/24 03:45 08/23/24 03:38 50 08/23/24 03:33 08/23/24 03:30 08/23/24 03:30 08/23/24 03:30 08/23/24 03:30 08/23/24 03:30 08/23/24 03:15 08/23/24 03:15 08/23/24 03:03 08/23/24 03:00 08/23/24 03:00 08/23/24 03:00 08/23/24 03:00 08/23/24 02:45 08/23/24 02:45 08/23/24 02:45 08/23/24 02:24 08/23/24 02:09 08/23/24 01:45 08/23/24 01:45 08/23/24 01:36 08/23/24 01:33 08/23/24 01:30 08/23/24 01:21 08/23/24 01:06 08/23/24 00:45 08/23/24 00:45 08/23/24 00:15 08/23/24 00:12 08/23/24 00:00 08/23/24 00:00 50 08/23/24 00:00 08/22/24 23:33 08/22/24 23:30 08/22/24 23:30 08/22/24 23:22 08/22/24 23:15 08/22/24 23:15 08/22/24 23:15 08/22/24 23:03 08/22/24 23:03 50 08/22/24 23:00 08/22/24 23:00 08/22/24 22:51 08/22/24 22:45 08/22/24 22:45 08/22/24 22:39 08/22/24 22:03 08/22/24 22:00 08/22/24 22:00 Coding Level of Care Code 83282 CRITICAL CARE 1ST 30-74M Diagnoses Acute encephalopathy G93.40 Acute hypoxemic respiratory failure J96.01 Sepsis A41.9 Influenza J11.1 Pneumonitis J98.4
[2024-08-23] MEDS: fentaNYL BOLUS from BAG IV PRN (10:02)
--- NOTE | 2024-08-23 11:01 | Procedure Note ---
Supervising Physician Co-Signing Physician Notes PREOPERATIVE DIAGNOSIS: Multifocal pneumonia POSTOPERATIVE DIAGNOSIS: Multifocal pneumonia PROCEDURE PERFORMED: Flexible fiberoptic bronchoscopy with bronchial washings from the right lower lobe and left lower lobe which were combined and sent to the lab COMPLICATIONS: None. INDICATION: Rule out infectious etiology and evaluate for lesions or other abnormalities. PROCEDURE: Informed written consent was obtained from the patient's as the patient is currently intubated and sedated. Timeout performed immediately prior to the procedure. Patient was orally intubated and sedated prior to the procedure. She was placed on 100% FiO2 via the ventilator. Endotracheal tube adapter was placed. Bronchoscope was inserted via the endotracheal tube adapter. Patient was sedated throughout the procedure on continuous fentanyl. Bilateral tracheal bronchial tree inspection was performed. There appears to be bilateral friable tissue with thick white mucoid secretions emanating from all lobes. Washings were performed of the right lower lobe and left lower lobe and combined and sent to the lab for further testing. We then performed washings of the right upper lobe, right middle lobe and left upper lobe to clear secretions. No significant bleeding was seen. Approximately 200 mL of saline was used throughout the course of the procedure for washings and clearance of secretions. Approximately 100 mL of fluid was aspirated back. The fluid is aspirated back appear to be red-tinged. Recommendations: Follow cultures, cytology and cell counts from the bilateral right lower lobe and left lower lobe lung washings. [facility] [place] (Charges) Pulmonary/Thoracic Procedure 1: Pulmonary and Thoracic: 27703 Dx bronchoscopy/wash
[2024-08-23] MEDS ORDERED: VANCOMYCIN HCL 1,000 MG/270 ML BAG IV SCH (12:00)
[2024-08-23 14:26] LABS: Neutrophil Body Fluid Man 82 %
[2024-08-23 14:27] LABS: Fluid Mono/Macrophage 16 %; Lymphocyte Body Fluid Man 2 %
--- NOTE | 2024-08-23 14:40 | Hospitalist Progress Note ---
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 Found to be hypoxic on arrival and CT chest showed PNA. Initial BioFire neg for Influenza and everything else. #Pneumonia/Influenza A/ Acute respiratory failure with hypoxia---> 2/2 pneumonia and some component of acute on chronic HFpEF-with increasing BNP and CT with possible pulmonary edema. Procal negative on admission Pneumonia worse on CT from admission 08/[address] from 08/15 as an outpatient with increasing nodular opacities Consult pulmonology appreciated-added Cefepime and steroids Allergies and prolonged QT prevented addition of atypical coverage although her bio fire is negative for mycoplasma, Legionella urine antigen negative Appreciate ID consult-initially recommended continue cefepime only for now and if worsens or decompensates, consider bronchoscopy and adding Flagyl versus switching to meropenem. Could also consider desensitization to doxycycline if concern for atypical pneumonia. However, with worsening confusion on 08/20, switched cefepime to meropenem 08/22 developed fever, worsening hypoxia requiring 6LNC, became obtunded with ABG c/w acute resp alkalosis from sepsis. Repeat CXR shows worsening multifocal PNA. CT A/P with nodular infiltrates at lung bases but otherwise no acute issues. CT head with maxillary sinusitis. UA neg for infection. Procal neg. Biofire now POSITIVE for Influenza A ABG c/w acute respiratory alkalosis. SHe was intubated on 08/22 for being obtunded with severe encephalopathy. Had LP with no evidence of meningitis Bronchoscopy 08/23 showed multilobar PNA, BALs collected from bilateral lower lobes, no diffuse hemorrhage -Continue meropenem and doxycycline (no signs of allergic reaction thus far) -Continue bronchodilator nebs, continue inhaled fluticasone, umeclidinium/vilanterol -Received IV diuresis for 2 days and then converted to p.o. Lasix 20 mg daily on 08/19-hold now for being NPO and febrile, giving gentle IVFs-Plasmalyte 70mL/hr -Discontinued metoprolol as per discussion with cardiology as this has caused her bronchospasm and shortness of breath in the past-she has been short of breath since -resuming metoprolol low-dose 3 months prior -Follow CXR -Follow blood, BAL cultures, Legionella culture -Appreciate ICU management-on vent (2) Pneumonia: Plan: With increasing nodular opacities and groundglass opacities diffusely on CT, treatment noted as above (3) Influenza: Plan: no Tamiflu to be given due to case reports of prolonged QT (4) Acute encephalopathy: Plan: Patient with worsening confusion since hospitalization as per family members. She does have baseline moderate expressive aphasia and some cognitive deficits. She did have a fall in the a.m. of 08/20-repeat head CT negative for hemorrhage, no new focal neuro deficits Cefepime switched to meropenem in case cefepime causing worsening delirium She has not moved her bowels in at least 5 days-added on bisacodyl as needed, added on Senokot On the morning of 08/21 patient was even more lethargic and confused-repeat head CT again performed due to head trauma the day before and history of intracranial hemorrhage-negative 08/22 became obtunded as above, repeat CT head neg for acute. With Influenza A + most likely cause of delirium Continue supportive care, promote good sleep-wake cycles once off sedation Continue treating infection of pneumonia and influenza Continue supplemental O2 to keep pulse ox greater than 90%-currently on vent (5) Fall: Plan: Got out of bed on her own on 08/20 a.m. and fell and struck her head on the metal register as witnessed by environmental services Has a very minor abrasion on left upper back otherwise no injuries CT head negative (6) UTI (urinary tract infection): Plan: Likely asymptomatic bacteriuria- urine culture with Enterococcus faecalis and Pseudomonas aeruginosa Discussed with ID-treating anyway with meropenem (7) Iron deficiency anemia: Plan: Hemoglobin 9.3-9.9, iron studies show transferrin saturation very low at 5% B12 and folate normal Started oral iron supplement Does have hematuria microscopic-follow as an outpatient Consider GI workup if not done recently (8) Acute heart failure with preserved ejection fraction: Plan: Could possibly be due to previous salt tablets No significant leg edema to suggest right sided heart failure Echo from outpatient in 07/2024 shows EF 60-64%, moderate LVH, small posterior loculated pericardial effusion without tamponade Repeat echo here with preserved EF, no significant valvular disease UA with only trace protein, no prior liver problems and LFTs normal Diuresed over 3 L net negative. Converted IV Lasix to p.o. 20 mg daily on 08/19 but now on hold while NPO on vent Strict I&Os, daily weights, low-sodium diet BNP normal Plan #Prolonged QT interval-QT difficult to interpret on EKG here even on repeat on 08/18 which shows paced rhythm atrial flutter. Appreciate cardiology consultation-historically when in sinus rhythm, she also had prolonged QT, hence they recommend avoiding QT prolonging agents #HTN -BPs normal, continue hydralazine, losartan, and Lasix, but discontinued Toprol-XL #pAfib/flutter- presence of Watchman hence no anticoagulation, permanent, appreciate cardiology consultation discontinue Toprol-XL due to shortness of breath #Hyponatremia-sodium 130 on arrival and now improved to 139 with diuresis-follow BMP #JG - CPAP HS once off vent #Recent hemorrhagic stroke-has repeat head CT as an outpatient scheduled for 09/05, follows with neurology. Repeat head CT here after fall in 08/20 and again on 08/21 negative for acute VTE Prophylaxis - SCDs, deferred chemical due to recent bloody LP Disposition -continued stay in ICU Admission and Anticipated Discharge Date Admission Date: August 17, 2024 Subjective Pt remains on vent but is awake when I saw her. Her eyes are open but she does not follow commands and is sitting up and bending knees towards chest. SHe had a bronchoscopy this AM with PULM. Tele with atrial flutter, paced rhythm, normal rates I discussed her care with PULM/ICU. Physical Exam Constitutional: well developed and + mechanically ventilated; no acute distress Eyes: + anicteric sclerae Respiratory: Auscultation: + crackles (bibasilar); no wheezes Cardiovascular: Rate/Rhythm: regular rate and regular rhythm Extremities: no edema Gastrointestinal (Abdomen): normal bowel sounds, soft, nontender, no hepatosplenomegaly Neurologic: moves all extremities, awake and + confused Genitourinary: + abnormal external appearance (Arevalo ca theter in place) Results & Data Results & Data Vital Signs (Past 12 Hours) Vital Signs Temp Pulse Resp BP Pulse Ox Pulse Ox O2 Del Method 08/23/24 14:34 80 08/23/24 12:40 102/54 L 08/23/24 12:40 102/54 L 08/23/24 12:40 102/54 L 08/23/24 12:40 102/54 L 08/23/24 12:39 36.5 C 80 20 95 Mechanical Vent 08/23/24 12:30 105/56 L 08/23/24 12:30 105/56 L 08/23/24 12:20 100/53 L 08/23/24 12:12 36.5 C 80 20 94 Mechanical Vent 08/23/24 12:10 99/54 L 08/23/24 12:06 36.5 C 80 21 93 Mechanical Vent 08/23/24 12:00 104/56 L 08/23/24 12:00 08/23/24 11:57 36.6 C 80 25 H 93 Mechanical Vent 08/23/24 11:50 114/57 L 08/23/24 11:50 114/57 L 08/23/24 11:50 114/57 L 08/23/24 11:45 36.6 C 80 22 93 08/23/24 11:40 116/59 L 08/23/24 11:40 116/59 L 08/23/24 11:40 116/59 L 08/23/24 11:39 36.7 C 80 23 92 Mechanical Vent 08/23/24 11:36 36.7 C 81 22 92 Mechanical Vent 08/23/24 11:12 36.7 C 80 22 08/23/24 11:10 118/64 08/23/24 11:10 118/64 08/23/24 11:10 118/64 08/23/24 11:09 36.7 C 80 19 90 Mechanical Vent 08/23/24 11:00 111/60 08/23/24 11:00 111/60 08/23/24 10:57 36.7 C 80 20 97 Mechanical Vent 08/23/24 10:45 80 25 H 95 08/23/24 10:40 127/71 08/23/24 10:40 127/71 08/23/24 10:39 36.6 C 80 25 H 99 Mechanical Vent 08/23/24 10:30 36.7 C 80 28 H 94 Mechanical Vent 08/23/24 10:30 128/91 08/23/24 10:30 128/91 08/23/24 10:30 128/91 08/23/24 10:20 126/70 08/23/24 10:15 36.6 C 80 18 95 Mechanical Vent 08/23/24 10:03 36.6 C 80 22 95 08/23/24 10:00 127/69 08/23/24 09:51 36.7 C 80 18 95 08/23/24 09:42 36.7 C 80 26 H 96 08/23/24 09:00 36.8 C 80 21 97 08/23/24 09:00 107/59 L 08/23/24 09:00 107/59 L 08/23/24 08:38 103/60 08/23/24 08:36 36.9 C 80 21 97 08/23/24 08:33 36.9 C 80 16 97 08/23/24 08:30 101/60 08/23/24 08:30 101/60 08/23/24 08:30 101/60 08/23/24 08:27 36.9 C 80 20 97 08/23/24 08:00 08/23/24 08:00 Mechanical Vent 08/23/24 08:00 80 08/23/24 08:00 36.9 C 80 21 95 08/23/24 08:00 111/61 08/23/24 08:00 111/61 08/23/24 08:00 111/61 08/23/24 07:39 36.7 C 80 22 94 08/23/24 07:30 107/58 L 08/23/24 07:30 107/58 L 08/23/24 07:30 107/58 L 08/23/24 07:30 80 22 95 08/23/24 07:21 36.7 C 80 24 95 08/23/24 07:00 110/59 L 08/23/24 07:00 110/59 L 08/23/24 07:00 36.7 C 80 20 96 08/23/24 05:36 36.7 C 80 20 95 08/23/24 05:30 107/60 08/23/24 05:30 107/60 08/23/24 05:30 107/60 08/23/24 05:27 36.7 C 80 20 96 08/23/24 05:15 111/62 08/23/24 05:15 111/62 08/23/24 05:15 36.7 C 80 21 95 08/23/24 05:03 36.7 C 80 21 96 08/23/24 05:00 113/57 L 08/23/24 04:51 36.7 C 80 20 96 08/23/24 04:45 105/58 L 08/23/24 04:42 36.7 C 80 21 96 08/23/24 04:30 36.7 C 80 23 95 08/23/24 04:30 111/60 08/23/24 04:15 103/64 08/23/24 04:15 103/64 08/23/24 04:15 103/64 08/23/24 04:09 36.7 C 80 21 96 08/23/24 04:00 36.7 C 80 22 95 08/23/24 04:00 112/59 L 08/23/24 04:00 112/59 L 08/23/24 03:55 08/23/24 03:55 96 08/23/24 03:45 109/61 08/23/24 03:38 22 96 08/23/24 03:33 36.7 C 80 20 95 08/23/24 03:30 36.7 C 80 21 95 08/23/24 03:30 107/64 08/23/24 03:30 107/64 08/23/24 03:30 107/64 08/23/24 03:30 107/64 08/23/24 03:15 36.6 C 80 21 08/23/24 03:15 107/62 08/23/24 03:03 36.6 C 80 20 94 08/23/24 03:00 134/74 08/23/24 03:00 134/74 08/23/24 03:00 134/74 08/23/24 03:00 134/74 08/23/24 02:45 107/61 08/23/24 02:45 107/61 08/23/24 02:45 107/61 O2 Del Method FiO2 08/23/24 14:34 08/23/24 12:40 08/23/24 12:40 08/23/24 12:40 08/23/24 12:40 08/23/24 12:39 50 08/23/24 12:30 08/23/24 12:30 08/23/24 12:20 08/23/24 12:12 50 08/23/24 12:10 08/23/24 12:06 50 08/23/24 12:00 08/23/24 12:00 40 08/23/24 11:57 50 08/23/24 11:50 08/23/24 11:50 08/23/24 11:50 08/23/24 11:45 08/23/24 11:40 08/23/24 11:40 08/23/24 11:40 08/23/24 11:39 50 08/23/24 11:36 50 08/23/24 11:12 08/23/24 11:10 08/23/24 11:10 08/23/24 11:10 08/23/24 11:09 40 08/23/24 11:00 08/23/24 11:00 08/23/24 10:57 40 08/23/24 10:45 50 08/23/24 10:40 08/23/24 10:40 08/23/24 10:39 50 08/23/24 10:30 50 08/23/24 10:30 08/23/24 10:30 08/23/24 10:30 08/23/24 10:20 08/23/24 10:15 08/23/24 10:03 08/23/24 10:00 08/23/24 09:51 08/23/24 09:42 08/23/24 09:00 08/23/24 09:00 08/23/24 09:00 08/23/24 08:38 08/23/24 08:36 08/23/24 08:33 08/23/24 08:30 08/23/24 08:30 08/23/24 08:30 08/23/24 08:27 08/23/24 08:00 50 08/23/24 08:00 50 08/23/24 08:00 08/23/24 08:00 08/23/24 08:00 08/23/24 08:00 08/23/24 08:00 08/23/24 07:39 08/23/24 07:30 08/23/24 07:30 08/23/24 07:30 08/23/24 07:30 50 08/23/24 07:21 08/23/24 07:00 08/23/24 07:00 08/23/24 07:00 08/23/24 05:36 08/23/24 05:30 08/23/24 05:30 08/23/24 05:30 08/23/24 05:27 08/23/24 05:15 08/23/24 05:15 08/23/24 05:15 08/23/24 05:03 08/23/24 05:00 08/23/24 04:51 08/23/24 04:45 08/23/24 04:42 08/23/24 04:30 08/23/24 04:30 08/23/24 04:15 08/23/24 04:15 08/23/24 04:15 08/23/24 04:09 08/23/24 04:00 08/23/24 04:00 08/23/24 04:00 08/23/24 03:55 50 08/23/24 03:55 Mechanical Vent 08/23/24 03:45 08/23/24 03:38 50 08/23/24 03:33 08/23/24 03:30 08/23/24 03:30 08/23/24 03:30 08/23/24 03:30 08/23/24 03:30 08/23/24 03:15 08/23/24 03:15 08/23/24 03:03 08/23/24 03:00 08/23/24 03:00 08/23/24 03:00 08/23/24 03:00 08/23/24 02:45 08/23/24 02:45 08/23/24 02:45 Laboratory Results CBC, CMP, mag,phos, UA, CSF cx, BCxs, BNP reviewed Diagnostic Findings CXR image personally reviewed by ca PG Care Time/CCT Total # of Minutes Spent Total Time Spent with Patient: Total time spent is greater than 50% in coordination of care (as documented) at patient's floor/unit and/or counseling patient: Coding Level of Care Code 37583 SUB INP/OBS CARE 3/50MIN Diagnoses Acute hypoxemic respiratory failure J96.01 Pneumonia J18.9 Influenza J11.1 Acute encephalopathy G93.40 Fall, initial encounter W19.XXXA Encounter type: initial encounter Urinary tract infection without hematuria, site unspecified N39.0 Hematuria presence: without hematuria Urinary tract infection type: site unspecified Iron deficiency anemia D50.9 Acute heart failure with preserved ejection fraction I50.31 (5) Fall Encounter type: initial encounter Qualified Code(s): W19.XXXA - Unspecified fall, initial encounter (6) UTI (urinary tract infection) Hematuria presence: without hematuria Urinary tract infection type: site unspecified Qualified Code(s): N39.0 - Urinary tract infection, site not specified
[2024-08-23] MEDS ORDERED: STAT IV Infusion **Titration per Protocol STA (15:07)
[2024-08-23] MEDS: TUBE FEEDING WATER FLUSH NG SCH (15:24)
[2024-08-23] MEDS: dexMEDEtomidine 200 MCG/50 ML BAG IV SCH (15:25)
[2024-08-23] MEDS: PEPTAMEN 1.5 CAL 1,000 ML BAG NG SCH (16:11)
[2024-08-23] MEDS: MEROPENEM 500 MG in SYRINGE 0 ML IV SCH (18:12)
[2024-08-23 19:45] LABS: A calco-baum cmplx NotReported Not Detected (NotDetected); Bact fragilis Not Reported Not Detected (NotDetected); Blood Culture Id Panel See PCR Comment (NotDetected); C auris Not Reported Not Detected (NotDetected); Calbicans Not Reported Not Detected (NotDetected); Candida glabrata Not Reported Not Detected (NotDetected); Candida krusei Not Reported Not Detected (NotDetected); Cneoformans/gatti Not Reported Not Detected (NotDetected); Cparapsilosis Not Reported Not Detected (NotDetected); E cloacae compx Not Reported Not Detected (NotDetected); Efaecalis Not Reported Not Detected (NotDetected); Efaecium Not Reported Not Detected (NotDetected); Enterobacterales Not Reported Not Detected (NotDetected); Escherichia coli Not Reported Not Detected (NotDetected); H influenzae Not Reported Not Detected (NotDetected); K aerogenes Not Reported Not Detected (NotDetected); Koxytoca Not Reported Not Detected (NotDetected); Kpneumoniae grp Not Reported Not Detected (NotDetected); Lmonocyt Not Reported Not Detected (NotDetected); N meningitidis Not Reported Not Detected (NotDetected); P aeruginosa Not Reported Not Detected (NotDetected); Proteus spp Not Reported Not Detected (NotDetected); Salmonella spp Not Reported Not Detected (NotDetected); Staph lugdunensis Not Reported Not Detected (NotDetected); Staph spp. Not Reported DETECTED (NotDetected); Staphaureus Not Reported Not Detected (NotDetected); Staphepi Not Reported DETECTED (NotDetected); Staphylococcus spp. DETECTED (NotDetected); Stenmaltophilia Not Reported Not Detected (NotDetected); Strep agal(GrpB) Not Reported Not Detected (NotDetected); Strep pneum Not Reported Not Detected (NotDetected); Strep pyog (GrpA) Not Reported Not Detected (NotDetected); Strep spp Not Reported Not Detected (NotDetected); mecAC Resistant Gene DETECTED (NotDetected)
[2024-08-23 20:22] LABS: Staphylococcus epidermidis DETECTED (NotDetected)
[2024-08-24 04:45] LABS: Basophils # (auto) 0.01 K/uL (0.00-0.20); Basophils % (auto) 0.1 %; Eosinophils # (auto) 0.06 K/uL (0.00-0.50); Eosinophils % (auto) 0.7 %; Hematocrit (blood only) 24.1 % (37.0-47.0); Hemoglobin 7.6 g/dl (12.0-16.0); Immature Granulocytes # (auto) 0.05 K/uL (0.01-0.20); Immature Granulocytes % (auto) 0.6 %; Lymphocytes # (auto) 0.59 K/uL (1.20-3.40); Lymphocytes % (auto) 7.1 %; Mean Corpuscular Hemoglobin 26.7 pg (25.0-34.0); Mean Corpuscular Hgb Conc 31.5 g/dL (32.0-36.0); Mean Corpuscular Volume 84.6 fL (80.0-100.0); Mean Platelet Volume 10.1 fL (9.4-12.4); Neutrophils # (auto) 7.11 K/uL (1.40-6.50); Neutrophils % (auto) 85.5 %; Platelet Count 253 K/uL (130-400); RDW Coefficient of Variation 14.6 % (11.5-14.5); RDW Standard Deviation 45.3 fL (36.4-46.3); Red Blood Count 2.85 M/uL (4.20-5.40); White Blood Count 8.32 K/ul (4.8-10.8)
[2024-08-24 05:00] LABS: Albumin Level 2.9 gm/dl (3.4-5.0); Bilirubin,Total 0.4 mg/dl (0.2-1.0); Calcium 9.1 mg/dl (8.6-10.3); Creatinine Clr Calc Pharmacy 39.5 ml/min; Globulin 2.8 gm/dl (2.5-4.0); Magnesium 2.5 mg/dl (1.7-2.4); Phosphorus 2.6 mg/dl (2.5-4.9); Potassium 3.5 mmol/L (3.5-5.1); Total Protein 5.7 gm/dl (6.0-8.3)
[2024-08-24 05:15] LABS: Hypochromasia Present
[2024-08-24] MEDS ORDERED: ROCURONIUM BROMIDE 10 MG/ML 5 ML VIAL IV ONE (07:12)
[2024-08-24] MEDS ORDERED: KETAMINE HCL INJ 50 MG/ML 10 ML VIAL IV ONE (07:12)
--- NOTE | 2024-08-24 07:31 | Electrocardiogram Report ---
Test Reason : Blood Pressure : */* mmHG Vent. Rate : 80 BPM Atrial Rate : 96 BPM P-R Int : * ms QRS Dur : 122 ms QT Int : 446 ms P-R-T Axes : * 78 -39 degrees QTcB Int : 514 ms Ventricular-paced rhythm Abnormal ECG When compared with ECG of 18-Aug-2024 10:00, Vent. rate has decreased by 10 bpm Confirmed by Rubén Ojeda ([id number]) on 08/24/2024 7:31:43 AM Referred By: REFERRED SELF Confirmed By: Rubén Ojeda
--- NOTE | 2024-08-24 08:27 | XRay Report ---
EXAM: XR chest 1V portable CLINICAL HISTORY: WHILE INTUBATED, EVAL TUBES/LINES/LUNG ROGERS. TECHNIQUE: X-ray image of the chest obtained in 1 frontal projection. COMPARISON: Prior X-ray dated 08/23/2024 for comparison. FINDINGS: ETT with tip 3.2 cm above ángela. Right CVL and NG tube in situ. Left side cardiac pacemaker. Pulmonary Parenchyma: Mild interval increase in air space opacities in right lower zone. Stable prominent markings in bilateral lungs. No evidence of pleural effusion or pleural thickening. Heart and Mediastinum: Cardiomegaly. No mediastinal widening or masses. No hilar or mediastinal lymphadenopathy. Bony Thorax: Bony thorax appears intact without fractures or deformities. Soft Tissues: Soft tissues overlying the chest wall are unremarkable. IMPRESSION: 1. ETT with tip 3.2 cm above the ángela. 2. Right CVL and NG tube in situ. 3. Left side cardiac pacemaker. 4. Cardiomegaly. 5. Mild interval increase in air space opacities in the right lower zone. 6. Stable prominent markings in bilateral lungs. Electronically signed by Yas Jenkins 08-24-2024 08:27 AM
--- NOTE | 2024-08-24 09:59 | Hospitalist Progress Note ---
Date of Service August 24, 2024 Assessment & Plan (1) Acute hypoxemic respiratory failure: Plan: This pt is a 74 yo female with a h/o ischemic CVA with hemorrhagic conversion s/p TNK, spontaneous ICH, HTN, PAF with pacer, DMII, muscular dystrophy, SIADH,who p/w worsening SOB and hypoxia. Found to be hypoxic on arrival and CT chest showed PNA. Initial BioFire neg for Influenza and everything else. #Pneumonia/Influenza A/ Acute respiratory failure with hypoxia---> 2/2 pneumonia and some component of acute on chronic HFpEF-with increasing BNP and CT with possible pulmonary edema. Procal negative on admission Pneumonia worse on CT from admission 08/[address] from 08/15 as an outpatient with increasing nodular opacities Consult pulmonology appreciated-added Cefepime and steroids Allergies and prolonged QT prevented addition of atypical coverage although her bio fire is negative for mycoplasma, Legionella urine antigen negative Appreciate ID consult-initially recommended continue cefepime only for now and if worsens or decompensates, consider bronchoscopy and adding Flagyl versus switching to meropenem. Could also consider desensitization to doxycycline if concern for atypical pneumonia. However, with worsening confusion on 08/20, switched cefepime to meropenem 08/22 developed fever, worsening hypoxia requiring 6LNC, became obtunded with ABG c/w acute resp alkalosis from sepsis. Repeat CXR shows worsening multifocal PNA. CT A/P with nodular infiltrates at lung bases but otherwise no acute issues. CT head with maxillary sinusitis. UA neg for infection. Procal neg. Biofire now POSITIVE for Influenza A ABG c/w acute respiratory alkalosis. SHe was intubated on 08/22 for being obtunded with severe encephalopathy. Had LP with no evidence of meningitis Bronchoscopy 08/23 showed multilobar PNA, BALs collected from bilateral lower lobes, no diffuse hemorrhage -still intubated 08/24 -likely 2nd to influenza A -Continue meropenem and doxycycline for possible superimposed bacterial PNA -Continue bronchodilator nebs, continue inhaled fluticasone, umeclidinium/vilanterol -follow up bronchoscopy culture results, still pending -critical care following (2) Pneumonia: Plan: With increasing nodular opacities and groundglass opacities diffusely on CT, treatment noted as above -on Meropenem and doxycycline (3) Influenza: Plan: no Tamiflu to be given due to case reports of prolonged QT (4) Acute encephalopathy: Plan: Patient with worsening confusion since hospitalization as per family members. She does have baseline moderate expressive aphasia and some cognitive deficits. She did have a fall in the a.m. of 08/20-repeat head CT negative for hemorrhage, no new focal neuro deficits Cefepime switched to meropenem in case cefepime causing worsening delirium She has not moved her bowels in at least 5 days-added on bisacodyl as needed, added on Senokot On the morning of 08/21 patient was even more lethargic and confused-repeat head CT again performed due to head trauma the day before and history of intracranial hemorrhage-negative 08/22 became obtunded as above, repeat CT head neg for acute. With Influenza A + most likely cause of delirium Continue supportive care, promote good sleep-wake cycles once off sedation Continue treating infection of pneumonia and influenza Continue supplemental O2 to keep pulse ox greater than 90%-currently on vent Encephalopathy likely 2nd to Influenza A (5) Fall: Plan: Got out of bed on her own on 08/20 a.m. and fell and struck her head on the metal register as witnessed by environmental services Has a very minor abrasion on left upper back otherwise no injuries CT head negative PT/OT evaluation once condition improves. (6) UTI (urinary tract infection): Plan: Likely asymptomatic bacteriuria- urine culture with Enterococcus faecalis and Pseudomonas aeruginosa Discussed with ID-treating anyway with meropenem -con't meropenum (7) Iron deficiency anemia: Plan: Hemoglobin 9.3-9.9, iron studies show transferrin saturation very low at 5% B12 and folate normal Started oral iron supplement Does have hematuria microscopic-follow as an outpatient Consider GI workup if not done recently Heme decreased from 8.5 o 7.6 today 08/24 (8) Acute heart failure with preserved ejection fraction: Plan: Could possibly be due to previous salt tablets No significant leg edema to suggest right sided heart failure Echo from outpatient in 07/2024 shows EF 60-64%, moderate LVH, small posterior loculated pericardial effusion without tamponade Repeat echo here with preserved EF, no significant valvular disease UA with only trace protein, no prior liver problems and LFTs normal Diuresed over 3 L net negative. Converted IV Lasix to p.o. 20 mg daily on 08/19 but now on hold while NPO on vent Strict I&Os, daily weights, low-sodium diet BNP normal Lasix on hold 2nd to intubation Plan #Prolonged QT interval-QT difficult to interpret on EKG here even on repeat on 08/18 which shows paced rhythm atrial flutter. Appreciate cardiology consultation-historically when in sinus rhythm, she also had prolonged QT, hence they recommend avoiding QT prolonging agents #HTN -BPs normal, continue hydralazine, losartan, and Lasix, but discontinued Toprol-XL #pAfib/flutter- presence of Watchman hence no anticoagulation, permanent, appreciate cardiology consultation discontinue Toprol-XL due to shortness of breath #Hyponatremia-sodium 130 on arrival and now improved to 139 with diuresis-follow BMP #JG - CPAP HS once off vent #Recent hemorrhagic stroke-has repeat head CT as an outpatient scheduled for 09/05, follows with neurology. Repeat head CT here after fall in 08/20 and again on 08/21 negative for acute VTE Prophylaxis - SCDs, deferred chemical due to recent bloody LP Acute respiratory failure requiring intubation 2nd to Influenza A with multi lobar PNA, s/p bronchoscopy on 08/23 Encephalopathy 2nd to influenza A Disposition -continued stay in ICU Critical care following Admission and Anticipated Discharge Date Admission Date: August 17, 2024 Subjective Pt intubated, sedated. Review of Systems Review of Systems: Intubated, sedated. Physical Exam Physical Exam: GENERAL APPEARANCE Intubated, sedated EYES lids/conjunctiva normal. EARS/NOSE/THROAT Mucous membranes moist, nares normal, lips/teeth normal uvula midline without oral pharyngeal erythema, exudate or swelling TMs normal bilaterally. No lymphangitis/lymphedema. HEAD/NECK normocephalic atraumatic, no facial trauma, neck is supple. RESPIRATORY decreased breath sounds at bases b/l CARDIAC Regular rate and rhythm, no edema. ABDOMINAL Soft, ND/NT. No evidence of fluid wave. No pulsatile masses on exam, rebound tenderness, Reddy sign or pain over Mcburney's point. MUSCLES/EXTREMITIES No abnormal range of motion, no swelling. SKIN Warm, pink and dry. No rashes, dermatoses, petechiae or lesions. NEUROLOGICAL Speech is clear and appropriate. Normal level of consciousness. Gait and coordination are normal. 5/5 strength in all extremities. PSYCH Normal mood and affect. Judgement/competence is appropriate Results & Data Results & Data Vital Signs (Past 12 Hours) Vital Signs Temp Pulse Resp BP Pulse Ox O2 Del Method FiO2 08/24/24 08:30 97/55 L 08/24/24 08:30 37.2 C 80 20 93 Mechanical Vent 40 08/24/24 08:00 37.2 C 80 19 91 Mechanical Vent 40 08/24/24 08:00 99/52 L 08/24/24 08:00 40 08/24/24 07:50 Mechanical Vent 40 08/24/24 07:45 37.1 C 80 22 88 L Mechanical Vent 40 08/24/24 07:30 103/63 08/24/24 07:27 37.0 C 80 17 93 Mechanical Vent 40 08/24/24 07:11 80 08/24/24 07:05 80 23 92 40 08/24/24 07:02 36.8 C 80 19 92 Mechanical Vent 40 08/24/24 07:00 104/62 08/24/24 05:05 36.9 C 80 20 94 08/24/24 05:00 109/66 08/24/24 04:56 36.9 C 80 20 94 08/24/24 04:30 37.0 C 80 20 95 08/24/24 04:30 107/64 08/24/24 04:30 107/64 08/24/24 04:00 105/64 08/24/24 04:00 105/64 08/24/24 04:00 37.1 C 80 20 96 08/24/24 04:00 40 08/24/24 03:33 37.3 C 80 20 94 08/24/24 03:30 97/58 L 08/24/24 03:26 37.4 C 80 20 94 08/24/24 03:08 37.4 C 80 21 93 08/24/24 03:00 80 20 95 40 08/24/24 02:41 37.5 C 80 20 91 08/24/24 02:30 96/58 L 08/24/24 02:27 37.5 C 80 20 91 08/24/24 02:00 37.5 C 80 23 92 08/24/24 02:00 103/59 L 08/24/24 02:00 103/59 L 08/24/24 02:00 103/59 L 08/24/24 01:46 126/71 08/24/24 01:39 37.5 C 80 23 93 08/24/24 01:30 37.4 C 80 19 08/24/24 00:51 37.4 C 80 19 96 08/24/24 00:30 94/57 L 08/24/24 00:21 37.4 C 80 20 95 08/24/24 00:03 37.5 C 80 20 94 08/24/24 00:00 94/56 L 08/24/24 00:00 40 08/24/24 00:00 80 08/24/24 00:00 80 24 94 40 08/23/24 23:54 37.5 C 80 20 94 08/23/24 23:30 37.5 C 80 20 94 08/23/24 23:30 89/55 L 08/23/24 23:30 89/55 L 08/23/24 23:06 37.5 C 80 20 93 08/23/24 22:03 37.5 C 80 22 95 08/23/24 22:00 98/56 L 08/23/24 22:00 98/56 L 08/23/24 21:57 37.5 C 80 20 95 PG Care Time/CCT Total # of Minutes Spent Total Time Spent with Patient: Total time spent is greater than 50% in coordination of care (as documented) at patient's floor/unit and/or counseling patient: Coding Level of Care Code 52145 SUB INP/OBS CARE 2/35MIN Diagnoses Acute hypoxemic respiratory failure J96.01 Pneumonia J18.9 Influenza J11.1 Acute encephalopathy G93.40 Fall, initial encounter W19.XXXA Encounter type: initial encounter Urinary tract infection without hematuria, site unspecified N39.0 Urinary tract infection type: site unspecified Hematuria presence: without hematuria Iron deficiency anemia D50.9 Acute heart failure with preserved ejection fraction I50.31 (5) Fall Encounter type: initial encounter Qualified Code(s): W19.XXXA - Unspecified fall, initial encounter (6) UTI (urinary tract infection) Urinary tract infection type: site unspecified Hematuria presence: without hematuria Qualified Code(s): N39.0 - Urinary tract infection, site not s pecified
--- NOTE | 2024-08-24 10:13 | Critical Care Progress Note ---
Date of Service August 24, 2024 Assessment & Plan (1) Acute encephalopathy: (2) Acute hypoxemic respiratory failure: (3) Sepsis: (4) Influenza: (5) Pneumonitis: Plan Patient intubated 08/22/2024 due to hypoxemia and severe encephalopathy. She tested positive for influenza A. Holding on Tamiflu given significant QTc prolongation and minimal ventilator settings. 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 Fortunately, fever curve is decreasing. Discontinued meningitis dose of antibiotics and antivirals as CSF panel was negative. Protein and glucose was mildly elevated on CSF suggestive of possible encephalitis/inflammation. Patient receiving IV Keppra for prior history of seizure related to hemorrhagic stroke. Continue aspirin for prior history of ischemic stroke. Holding tube feeds for extubation. Continue meropenem and doxycycline for pneumonia. Urine cultures earlier this admission revealed Enterococcus and Pseudomonas. Appreciate ID input regarding treatment of UTI. Holding Tamiflu given QTc prolongation and history of seizure. Hypoxemia relatively mild at this time. Bronchoscopy completed 08/24/2024 with culture sent from bilateral tracheobronchial tree. Culture results pending. Bronchial washings neutrophilic. Continue antibiotics as above. Chest x-ray today with new right lower lobe infiltrate possibly due to evolving aspiration. Chemical DVT prophylaxis on hold due to traumatic lumbar puncture 08/22/2024 and dropping hemoglobin. Continue SCDs for the time being. Fortunately, repeated CT head imaging this hospitalization has not shown any recurrence of hemorrhagic bleed or mass effect. Antihypertensives on hold while patient is intubated and sedated. Given patient's delirium will use as needed IV antihypertensives and maintain n.p.o. status. Continue nebulized bronchodilator therapy to help with airway clearance. Will need to consider NG tube depending on level of delirium and ability to tolerate p.o. intake. CRITICAL CARE TIME I have personally spent 38 minutes of critical care time in the direct management of this patient. This is a life/limb threatening event. This includes time spent evaluating patient, direct bedside care, chart review, placing orders, interpretation of diagnostic studies, discussion with consultants, patient, and family members, as well as other required patient management activities. This time is exclusive of all separately billable procedures, and teaching time and separate from and in addition to any other critical care service time. Admission and Anticipated Discharge Date Admission Date: August 17, 2024 Subjective Patient seen and examined. Remains delirious but follows commands intermittently. Oxygen requirements minimal on the ventilator. Respiratory mechanics on SBT are good and she is eligible for extubation. Review of Systems Review of Systems: Unobtainable due to endotracheal tube Physical Exam Physical Exam: Constitutional: Frail and elderly appearing. Thin. Eyes: Pupils are equal round and reactive to light. Conjunctivae are normal. Anicteric sclera. Ears nose, mouth and throat: Intubated on the ventilator. Neck: Trachea is midline. Visual inspection is normal. Respiratory: Bilateral crackles. No significant wheezes. Cardiovascular: Regular rate and rhythm. No murmurs. No edema. Gastrointestinal: Normal bowel sounds, soft, nontender and nondistended. No hepatosplenomegaly noted. Musculoskeletal: No cyanosis. Patient is able to move all extremities. Strength is 5 out of 5 in the upper and lower extremities. Skin: No rashes, warm dry and intact. Neurologic: Spontaneously moves extremities with sedation off. Appears delirious. Psychiatric: Unable to assess given intubation and sedation status. Anxious appearing. Results & Data Results & Data Vital Signs (Past 12 Hours) Vital Signs Temp Pulse Resp BP Pulse Ox O2 Del Method FiO2 08/24/24 08:30 97/55 L 08/24/24 08:30 37.2 C 80 20 93 Mechanical Vent 40 08/24/24 08:00 37.2 C 80 19 91 Mechanical Vent 40 08/24/24 08:00 99/52 L 08/24/24 08:00 40 08/24/24 07:50 Mechanical Vent 40 08/24/24 07:45 37.1 C 80 22 88 L Mechanical Vent 40 08/24/24 07:30 103/63 08/24/24 07:27 37.0 C 80 17 93 Mechanical Vent 40 08/24/24 07:11 80 08/24/24 07:05 80 23 92 40 08/24/24 07:02 36.8 C 80 19 92 Mechanical Vent 40 08/24/24 07:00 104/62 08/24/24 05:05 36.9 C 80 20 94 08/24/24 05:00 109/66 08/24/24 04:56 36.9 C 80 20 94 08/24/24 04:30 37.0 C 80 20 95 08/24/24 04:30 107/64 08/24/24 04:30 107/64 08/24/24 04:00 105/64 08/24/24 04:00 105/64 08/24/24 04:00 37.1 C 80 20 96 08/24/24 04:00 40 08/24/24 03:33 37.3 C 80 20 94 08/24/24 03:30 97/58 L 08/24/24 03:26 37.4 C 80 20 94 08/24/24 03:08 37.4 C 80 21 93 08/24/24 03:00 80 20 95 40 08/24/24 02:41 37.5 C 80 20 91 08/24/24 02:30 96/58 L 08/24/24 02:27 37.5 C 80 20 91 08/24/24 02:00 37.5 C 80 23 92 08/24/24 02:00 103/59 L 08/24/24 02:00 103/59 L 08/24/24 02:00 103/59 L 08/24/24 01:46 126/71 08/24/24 01:39 37.5 C 80 23 93 08/24/24 01:30 37.4 C 80 19 08/24/24 00:51 37.4 C 80 19 96 08/24/24 00:30 94/57 L 08/24/24 00:21 37.4 C 80 20 95 08/24/24 00:03 37.5 C 80 20 94 08/24/24 00:00 94/56 L 08/24/24 00:00 40 08/24/24 00:00 80 08/24/24 00:00 80 24 94 40 08/23/24 23:54 37.5 C 80 20 94 08/23/24 23:30 37.5 C 80 20 94 08/23/24 23:30 89/55 L 08/23/24 23:30 89/55 L 08/23/24 23:06 37.5 C 80 20 93 Coding Level of Care Code 60142 CRITICAL CARE 1ST 30-74M Diagnoses Acute encephalopathy G93.40 Acute hypoxemic respiratory failure J96.01 Sepsis A41.9 Influenza J11.1 Pneumonitis J98.4
[2024-08-24] MEDS: ACETAMINOPHEN 1,000 MG/100 ML VIAL IV PRN (11:31)
[2024-08-24] MEDS: ACETAMINOPHEN 1000 MG/100 ML IV IV ONE (11:31)
[2024-08-24] MEDS: PLASMA-LYTE A 1,000 ML IV SCH (16:00)
--- NOTE | 2024-08-24 17:27 | Procedure Note ---
Procedure Note Date of Service August 24, 2024 INTUBATION PROCEDURE NOTE: Dr. Bruce Melo A time-out was completed verifying correct patient, procedure, site, positioning. Patient was evaluated and required intubation for hypoxemic respiratory failure and encephalopathy. Sedative agent used: Ketamine 80 mg Paralysis agent used: Rocuronium 50 mg Emergent consent was implied given patients rapidly declining clinical status and need for airway protection. Number of attempts: 1 Grade view: The patient was prepared in the appropriate fashion. Sedation was achieved utilizing ketamine and rocuronium. The patient was easily ventilated using [id number] to achieve adequate oxygenation. A 7.5 [place] endotracheal tube was placed under glide scope guide to 24 cm at the lip. The stylette was removed and balloon was inflated with 10mL of air. Appropriate Colorimetric change was appreciated. Bilateral breath sounds were heard without air sounds in the abdomen. Post Intubation Chest X-ray ordered. Patient tolerated the procedure well and there were no immediate complications. [facility] Procedure Codes (Charges) Resuscitation Resuscitation: 87536 Endotracheal Intubation, emergency Coding CPT Codes Resuscitation - Resuscitation: 66795 Endotracheal Intubation, emergency ([id number]) Additional Codes Date of Service (PG.SURGERY)
--- NOTE | 2024-08-24 17:28 | Procedure Note ---
Procedure Note Date of Service August 24, 2024 Patient has been battling a fever throughout the day with worsening encephalopathy and hypoxemia. She was emergently reintubated due to requiring higher amounts of oxygen and ultimately requiring [id number] ventilation. OG tube will be inserted and the patient will be started on Tamiflu for severe viral pneumonia from influenza. Voicemail left on 's phone to call the ICU back for an update. Coding Additional Codes Date of Service (PG.SURGERY)
[2024-08-24] MEDS: RAPID SEQUENCE INDUCTION BAG ONE (17:55)
[2024-08-24] MEDS ORDERED: PROPOFOL BOLUS FROM BAG IV PRN (18:03)
[2024-08-24] MEDS ORDERED: STAT IV Infusion **Titration per Protocol STA ×2 (18:03→19:44)
[2024-08-24] MEDS: PROPOFOL IV EMULSION 10 MG/ML 100 ML VIAL IV ONE (18:09)
[2024-08-24] MEDS: propofoL 1,000 MG/100 ML VIAL IV SCH (18:10)
--- NOTE | 2024-08-24 18:14 | XRay Report ---
EXAM: Radiograph of the Chest 1 View INDICATION: Intubation. TECHNIQUE: Frontal view of the chest. Image obtained at 5:59 PM. COMPARISON: 7:20 AM the same day FINDINGS: Lungs and pleural spaces: Worsening interstitial thickening and increased patchy bilateral basilar infiltrates. New small bilateral pleural effusions present. No evident pneumothorax. Impression . Heart: Stable large cardiac shadow. Mediastinum: Normal contour. Bones/joints: No fracture, erosion or dislocation. Soft tissues: No abnormality noted. No radiopaque foreign body noted. Tubes, lines and devices: The endotracheal tube terminates 4.3 cm above the ángela. Nasogastric tube tip in the gastric fundus. Right internal jugular catheter terminates at the cavoatrial junction. Upper abdomen: No abnormality noted. IMPRESSION: 1. Worsening CHF and/or pneumonia 2. Lines and tubes as above. ACT 112: Negative or not required by law. Electronically signed by Britany Joseph 08-24-2024 6:13 PM
[2024-08-24] MEDS: OSELTAMIVIR PHOSPHATE SUSP 30 MG/5 ML UDP PO SCH (20:55)
[2024-08-25] MEDS: PANTOprazole 40 MG/10 ML SYR IV ONE (03:08)
[2024-08-25 05:03] LABS: Eosinophils # (auto) 0.02 K/uL (0.00-0.50); Eosinophils % (auto) 0.3 %; Hematocrit (blood only) 25.4 % (37.0-47.0); Hemoglobin 7.9 g/dl (12.0-16.0); Immature Granulocytes # (auto) 0.06 K/uL (0.01-0.20); Immature Granulocytes % (auto) 0.8 %; Lymphocytes # (auto) 0.62 K/uL (1.20-3.40); Lymphocytes % (auto) 8.4 %; Mean Corpuscular Hemoglobin 26.5 pg (25.0-34.0); Mean Corpuscular Hgb Conc 31.1 g/dL (32.0-36.0); Mean Corpuscular Volume 85.2 fL (80.0-100.0); Mean Platelet Volume 9.6 fL (9.4-12.4); Monocytes # (auto) 0.25 K/uL (0.11-0.59); Monocytes % (auto) 3.4 %; Neutrophils # (auto) 6.46 K/uL (1.40-6.50); Neutrophils % (auto) 87.1 %; Platelet Count 237 K/uL (130-400); RDW Coefficient of Variation 14.6 % (11.5-14.5); RDW Standard Deviation 45.9 fL (36.4-46.3); Red Blood Count 2.98 M/uL (4.20-5.40); White Blood Count 7.41 K/ul (4.8-10.8)
[2024-08-25 05:14] LABS: Anion Gap 3 (3-11); BUN Creatinine Ratio 47.3 (10-20); Blood Urea Nitrogen 43 mg/dl (6-23); Calcium 9.1 mg/dl (8.6-10.3); Carbon Dioxide 34 mmol/L (21-32); Chloride 102 mmol/L (98-107); Creatinine Clr Calc Pharmacy 46.8 ml/min; Glucose 92 mg/dl (70-99(Fasting)); Magnesium 2.2 mg/dl (1.7-2.4); Potassium 3.5 mmol/L (3.5-5.1); Sodium 139 mmol/L (136-145)
[2024-08-25 05:37] LABS: Ovalocytes 1+; Polychromasia 1+
[2024-08-25] MEDS: PANTOprazole 40 MG/10 ML SYR IV SCH (08:07)
--- NOTE | 2024-08-25 08:43 | XRay Report ---
EXAM: XR chest 1V portable CLINICAL HISTORY: While intubated, eval tubes, lines, lung kinsey TECHNIQUE: An X-ray image of the chest is obtained in AP projection. COMPARISON: 08/24/2024 FINDINGS: ETT with tip 5.4 cm above ángela (satisfactory). Right CVL and NG tube in situ. Left side cardiac pacemaker. Pulmonary Parenchyma: Mild interval increase in air space opacities in right lower zone. Stable prominent markings in bilateral lungs. No evidence of pleural effusion or pleural thickening. Heart and Mediastinum: Cardiomegaly. No mediastinal widening or masses. No hilar or mediastinal lymphadenopathy. Bony Thorax: Bony thorax appears intact without fractures or deformities. Soft Tissues: Soft tissues overlying the chest wall are unremarkable. IMPRESSION: 1. ETT with tip 5.4 cm above ángela (satisfactory). 2. Right CVL and NG tube in situ. 3. Left side cardiac pacemaker. 4. Mild interval increase in air space opacities in right lower zone. 5. Stable prominent markings in bilateral lungs. 6. Cardiomegaly. Electronically signed by Yas Jenkins 08-25-2024 08:43 AM
[2024-08-25] MEDS: NOREPINEPHRINE/D5W 4 MG/250 ML PLCT IV SCH (09:15)
--- NOTE | 2024-08-25 10:32 | Critical Care Progress Note ---
Date of Service August 25, 2024 Assessment & Plan (1) Acute encephalopathy: (2) Acute hypoxemic respiratory failure: (3) Sepsis: (4) Influenza: (5) Pneumonitis: Plan Reason Critically Ill: [] PLAN: Neuro: Encephalopathy: Likely multifactorial to include prior CVAs and sepsis -Expressive aphasia at baseline -Lives at home with Resp: Acute hypoxic respiratory failure in the setting of influenza A -Failed extubation yesterday -Will discuss with long-term goals if patient would desire tracheostomy if she were to fail versus terminal extubation CV: Prolonged QT C on EKG -Supplemental potassium with 40 mg p.o. and 40 mg IV Fluids/Renal: 5 kg increase in weight -Stop Plasma-Lyte gentle diuresis with 20 mg IV Lasix ID: Influenza A -Tamiflu high dose Possible secondary bacterial infection: -Meropenem and doxycycline day 7 today, extend today 10 -Infectious diseases reconsulted Simple urinary tract infection: Treating a E faecalis and Pseudomonas urinary tract infection for 7 days GI/Nutrition: Protonix IV for GI prophylaxis -Initiate tube feeding On bowel regimen last BM on 08/22 Heme: Anemia: NOS likely multifactorial initial anemia was diagnosed back in June -Send anemia labs DVT prophylaxis: SCDs -Start Lovenox patient's lumbar puncture has been completed Endocrine: ICU hyperglycemia protocol Vascular access: Right IJ CVC placed 08/24 Code Status: Full code -Will discuss with goals of care Disposition: ICU Attempted to contact patient's at preferred phone number listed in chart, left message for them to call back Admission and Anticipated Discharge Date Admission Date: August 17, 2024 Supervising Physician Co-Signing Physician Notes I have personally spent 50 minutes of critical care time in the direct management of this patient. This is a life/limb threatening event. This includes time spent evaluating patient, direct bedside care, chart review, placing orders, interpretation of diagnostic studies, discussion with consultants, patient, and/or family members regarding treatment decisions, as well as other required patient management activities. This time is exclusive of all separately billable procedures, and teaching time and separate from and in addition to any other critical care service time. Subjective Failed trial of extubation yesterday, no events overnight Physical Exam Physical Exam: General: Sedated. nontoxic. Skin: Warm, dry, Head: Atraumatic Ears, nose, mouth and throat: airway obscured by endotracheal tube Cardiovascular: Normal peripheral perfusion Respiratory: Ventilator settings reviewed Gastrointestinal: Non distended Musculoskeletal: No deformity Results & Data Results & Data Vital Signs (Past 12 Hours) Vital Signs Temp Pulse Resp BP Pulse Ox FiO2 08/25/24 08:45 145/110 H 08/25/24 08:45 37.7 C H 80 21 96 08/25/24 08:30 167/84 H 08/25/24 08:30 167/84 H 08/25/24 08:30 37.7 C H 80 14 93 08/25/24 08:00 166/83 H 08/25/24 08:00 37.6 C H 80 20 97 08/25/24 08:00 40 08/25/24 07:45 146/73 H 08/25/24 07:36 37.5 C 80 20 96 08/25/24 07:30 149/74 H 08/25/24 07:21 37.4 C 80 32 H 96 08/25/24 07:15 145/71 H 08/25/24 07:15 145/71 H 08/25/24 07:06 80 20 97 40 08/25/24 07:00 147/70 H 08/25/24 06:45 135/66 08/25/24 06:45 135/66 08/25/24 06:42 37.3 C 80 20 95 08/25/24 06:30 37.3 C 80 20 96 08/25/24 06:30 125/64 08/25/24 06:30 125/64 08/25/24 06:15 126/65 08/25/24 06:15 126/65 08/25/24 06:12 37.3 C 80 20 95 08/25/24 06:00 127/69 08/25/24 06:00 37.2 C 80 20 94 08/25/24 05:39 37.2 C 80 20 95 08/25/24 05:30 161/72 H 08/25/24 05:30 161/72 H 08/25/24 05:15 158/75 H 08/25/24 05:15 158/75 H 08/25/24 05:06 37.0 C 80 19 95 08/25/24 05:00 36.9 C 80 18 95 08/25/24 05:00 163/84 H 08/25/24 05:00 163/84 H 08/25/24 04:45 152/74 H 08/25/24 04:45 152/74 H 08/25/24 04:45 152/74 H 08/25/24 04:45 36.9 C 80 25 H 96 08/25/24 04:36 36.9 C 80 20 96 08/25/24 04:15 113/62 08/25/24 04:15 113/62 08/25/24 04:00 122/66 08/25/24 04:00 40 08/25/24 03:45 36.8 C 80 20 97 08/25/24 03:42 36.7 C 80 20 96 08/25/24 03:39 80 20 100 40 08/25/24 03:30 143/74 H 08/25/24 03:30 143/74 H 08/25/24 03:24 36.6 C 80 21 100 08/25/24 03:21 36.5 C 80 21 100 08/25/24 03:00 113/63 08/25/24 03:00 113/63 08/25/24 03:00 113/63 08/25/24 02:54 36.6 C 80 20 98 08/25/24 02:51 36.6 C 80 20 98 08/25/24 02:45 114/66 08/25/24 02:30 127/70 08/25/24 02:15 134/72 08/25/24 02:15 134/72 08/25/24 02:15 134/72 08/25/24 02:15 134/72 08/25/24 02:15 134/72 08/25/24 02:15 36.5 C 80 20 100 08/25/24 02:09 36.4 C L 80 20 100 08/25/24 02:00 113/65 08/25/24 02:00 113/65 08/25/24 01:57 36.4 C L 80 20 99 08/25/24 01:45 113/65 08/25/24 01:45 113/65 08/25/24 01:45 113/65 08/25/24 01:42 36.4 C L 80 20 99 08/25/24 01:30 36.4 C L 80 20 99 08/25/24 01:30 110/62 08/25/24 01:30 110/62 08/25/24 01:21 36.4 C L 80 20 99 08/25/24 01:15 110/62 08/25/24 01:15 110/62 08/25/24 00:57 36.4 C L 80 20 100 08/25/24 00:45 36.4 C L 80 20 99 08/25/24 00:45 111/62 08/25/24 00:36 36.4 C L 80 20 98 08/25/24 00:15 112/63 08/25/24 00:15 112/63 08/25/24 00:06 36.4 C L 80 20 98 08/25/24 00:00 113/64 08/24/24 23:57 50 08/24/24 23:57 80 08/24/24 23:48 36.4 C L 80 20 97 08/24/24 23:45 111/60 08/24/24 23:45 111/60 08/24/24 23:45 111/60 08/24/24 23:45 111/60 08/24/24 23:45 111/60 08/24/24 23:36 36.5 C 80 20 97 08/24/24 23:34 80 20 96 50 08/24/24 23:15 36.5 C 80 20 100 08/24/24 23:15 119/68 08/24/24 23:15 119/68 08/24/24 23:15 119/68 08/24/24 23:03 36.5 C 80 20 99 08/24/24 23:00 115/63 08/24/24 23:00 115/63 08/24/24 22:57 36.5 C 80 20 99 08/24/24 22:51 36.6 C 80 20 99 08/24/24 22:45 133/70 08/24/24 22:45 133/70 08/24/24 22:30 111/61 08/24/24 22:24 36.6 C 80 20 100 Critical Care Results & Data Vital Signs (Past 12 Hours) Vital Signs Temp Pulse Resp BP Pulse Ox FiO2 08/25/24 08:45 145/110 H 08/25/24 08:45 37.7 C H 80 21 96 08/25/24 08:30 167/84 H 08/25/24 08:30 167/84 H 08/25/24 08:30 37.7 C H 80 14 93 08/25/24 08:00 166/83 H 08/25/24 08:00 37.6 C H 80 20 97 08/25/24 08:00 40 08/25/24 07:45 146/73 H 08/25/24 07:36 37.5 C 80 20 96 08/25/24 07:30 149/74 H 08/25/24 07:21 37.4 C 80 32 H 96 08/25/24 07:15 145/71 H 08/25/24 07:15 145/71 H 08/25/24 07:06 80 20 97 40 08/25/24 07:00 147/70 H 08/25/24 06:45 135/66 08/25/24 06:45 135/66 08/25/24 06:42 37.3 C 80 20 95 08/25/24 06:30 37.3 C 80 20 96 08/25/24 06:30 125/64 08/25/24 06:30 125/64 08/25/24 06:15 126/65 08/25/24 06:15 126/65 08/25/24 06:12 37.3 C 80 20 95 08/25/24 06:00 127/69 08/25/24 06:00 37.2 C 80 20 94 08/25/24 05:39 37.2 C 80 20 95 08/25/24 05:30 161/72 H 08/25/24 05:30 161/72 H 08/25/24 05:15 158/75 H 08/25/24 05:15 158/75 H 08/25/24 05:06 37.0 C 80 19 95 08/25/24 05:00 36.9 C 80 18 95 08/25/24 05:00 163/84 H 08/25/24 05:00 163/84 H 08/25/24 04:45 152/74 H 08/25/24 04:45 152/74 H 08/25/24 04:45 152/74 H 08/25/24 04:45 36.9 C 80 25 H 96 08/25/24 04:36 36.9 C 80 20 96 08/25/24 04:15 113/62 08/25/24 04:15 113/62 08/25/24 04:00 122/66 08/25/24 04:00 40 08/25/24 03:45 36.8 C 80 20 97 08/25/24 03:42 36.7 C 80 20 96 08/25/24 03:39 80 20 100 40 08/25/24 03:30 143/74 H 08/25/24 03:30 143/74 H 08/25/24 03:24 36.6 C 80 21 100 08/25/24 03:21 36.5 C 80 21 100 08/25/24 03:00 113/63 08/25/24 03:00 113/63 08/25/24 03:00 113/08/25/24 02:54 36.6 C 80 20 98 08/25/24 02:51 36.6 C 80 20 98 08/25/24 02:45 114/66 08/25/24 02:30 127/70 08/25/24 02:15 134/72 08/25/24 02:15 134/72 08/25/24 02:15 134/72 08/25/24 02:15 134/72 08/25/24 02:15 134/72 08/25/24 02:15 36.5 C 80 20 100 08/25/24 02:09 36.4 C L 80 20 100 08/25/24 02:00 113/65 08/25/24 02:00 113/65 08/25/24 01:57 36.4 C L 80 20 99 08/25/24 01:45 11308/25/24 01:45 113/08/25/24 01:45 113/65 08/25/24 01:42 36.4 C L 80 20 99 08/25/24 01:30 36.4 C L 80 20 99 08/25/24 01:30 11008/25/24 01:30 11008/25/24 01:21 36.4 C L 80 20 99 08/25/24 01:15 110/08/25/24 01:15 110/08/25/24 00:57 36.4 C L 80 20 100 08/25/24 00:45 36.4 C L 80 20 99 08/25/24 00:45 111/62 08/25/24 00:36 36.4 C L 80 20 98 08/25/24 00:15 112/63 08/25/24 00:15 112/63 08/25/24 00:06 36.4 C L 80 20 98 08/25/24 00:00 113/64 08/24/24 23:57 50 08/24/24 23:57 80 08/24/24 23:48 36.4 C L 80 20 97 08/24/24 23:45 111/60 08/24/24 23:45 111/60 08/24/24 23:45 111/60 08/24/24 23:45 111/60 08/24/24 23:45 111/60 08/24/24 23:36 36.5 C 80 20 97 08/24/24 23:34 80 20 96 50 08/24/24 23:15 36.5 C 80 20 100 08/24/24 23:15 119/68 08/24/24 23:15 119/68 08/24/24 23:15 119/68 08/24/24 23:03 36.5 C 80 20 99 08/24/24 23:00 115/63 08/24/24 23:00 115/63 08/24/24 22:57 36.5 C 80 20 99 08/24/24 22:51 36.6 C 80 20 99 08/24/24 22:45 133/70 08/24/24 22:45 133/70 08/24/24 22:30 111/61 08/24/24 22:24 36.6 C 80 20 100 Lab & Micro Results (Past 24 Hours) RBC 2.98 M/uL (4.20-5.40) L 08/25/24 WBC 7.41 K/ul (4.8-10.8) 08/25/24 Hgb 7.9 g/dl (12.0-16.0) L 08/25/24 Hct 25.4 % (37.0-47.0) L 08/25/24 MCV 85.2 fL (80.0-100.0) 08/25/24 MCH 26.5 pg (25.0-34.0) 08/25/24 MCHC 31.1 g/dL (32.0-36.0) L 08/25/24 RDW Standard Deviation 45.9 fL (36.4-46.3) 08/25/24 RDW Coefficient of Variation 14.6 % (11.5-14.5) H 08/25/24 Plt Count 237 K/uL (130-400) 08/25/24 MPV 9.6 fL (9.4-12.4) 08/25/24 Neutrophils (%) (Auto) 87.1 % 08/25/24 Lymphocytes (%) (Auto) 8.4 % 08/25/24 Monocytes # (Auto) 0.25 K/uL (0.11-0.59) 08/25/24 Eosinophils # (Auto) 0.02 K/uL (0.00-0.50) 08/25/24 Immature Granulocyte % (Auto) 0.8 % 08/25/24 Neutrophils # (Auto) 6.46 K/uL (1.40-6.50) 08/25/24 Lymphocytes # (Auto) 0.62 K/uL (1.20-3.40) L 08/25/24 Monocytes # (Auto) 0.25 K/uL (0.11-0.59) 08/25/24 Eosinophils # (Auto) 0.02 K/uL (0.00-0.50) 08/25/24 Basophils # (Auto) 0.00 K/uL (0.00-0.20) 08/25/24 Immature Granulocyte # (Auto) 0.06 K/uL (0.01-0.20) 5 Polychromasia 1+ 08/25/24 Ovalocytes 1+ 08/25/24 Na 139 mmol/L (136-145) 08/25/24 K 3.5 mmol/L (3.5-5.1) 08/25/24 Cl 102 mmol/L (98-107) 08/25/24 CO2 34 mmol/L (21-32) H 08/25/24 Anion Gap 3 (3-11) 08/25/24 BUN 43 mg/dl (6-23) H 08/25/24 Creatinine 0.91 mg/dl (0.6-1.2) 08/25/24 BUN/Creatinine Ratio 47.3 (10-20) H 08/25/24 Glu 92 mg/dl (70-99(Fasting)) 08/25/24 Ca 9.1 mg/dl (8.6-10.3) 08/25/24 Mg 2.2 mg/dl (1.7-2.4) 08/25/24 04:44 Calcium Level 9.1 mg/dl (8.6-10.3) 08/25/24 04:44 Microbiology 08/23/24 11:00 Gram Stain - Final Bronch Wash, Trach Tree Bronchial Culture - Final Scant normal graham. 08/22/24 22:30 Gram Stain - Final Sputum, Expectorated Sputum Culture - Final Light normal graham. 08/22/24 15:39 Aerobic Blood Culture - Preliminary Blood Staphylococcus epidermidis Anaerobic Blood Culture - Preliminary Staphylococcus epidermidis 08/22/24 16:00 Aerobic Blood Culture - Preliminary Blood No growth in Aerobic bottle after 48 hours. Anaerobic Blood Culture - Final 08/23/24 11:00 Acid Fast Bacilli Smear - Final Bronch Wash, Trach Tree 08/22/24 19:00 Gram Stain - Final Cerebral Spinal Fluid CSF Culture - Final No growth Diagnostic Findings (Past 24 Hours) Chest X-Ray 08/24/24 17:24 EXAM: Radiograph of the Chest 1 View INDICATION: Intubation. TECHNIQUE: Frontal view of the chest. Image obtained at 5:59 PM. COMPARISON: 7:20 AM the same day FINDINGS: Lungs and pleural spaces: Worsening interstitial thickening and increased patchy bilateral basilar infiltrates. New small bilateral pleural effusions present. No evident pneumothorax. Impression . Heart: Stable large cardiac shadow. Mediastinum: Normal contour. Bones/joints: No fracture, erosion or dislocation. Soft tissues: No abnormality noted. No radiopaque foreign body noted. Tubes, lines and devices: The endotracheal tube terminates 4.3 cm above the ángela. Nasogastric tube tip in the gastric fundus. Right internal jugular catheter terminates at the cavoatrial junction. Upper abdomen: No abnormality noted. IMPRESSION: 1. Worsening CHF and/or pneumonia 2. Lines and tubes as above. ACT 112: Negative or not required by law. Electronically signed by Britany Joseph 08-24-2024 6:13 PM Chest X-Ray 08/25/24 06:00 EXAM: XR chest 1V portable CLINICAL HISTORY: While intubated, eval tubes, lines, lung kinsey TECHNIQUE: An X-ray image of the chest is obtained in AP projection. COMPARISON: 08/24/2024 FINDINGS: ETT with tip 5.4 cm above ángela (satisfactory). Right CVL and NG tube in situ. Left side cardiac pacemaker. Pulmonary Parenchyma: Mild interval increase in air space opacities in right lower zone. Stable prominent markings in bilateral lungs. No evidence of pleural effusion or pleural thickening. Heart and Mediastinum: Cardiomegaly. No mediastinal widening or masses. No hilar or mediastinal lymphadenopathy. Bony Thorax: Bony thorax appears intact without fractures or deformities. Soft Tissues: Soft tissues overlying the chest wall are unremarkable. IMPRESSION: 1. ETT with tip 5.4 cm above ángela (satisfactory). 2. Right CVL and NG tube in situ. 3. Left side cardiac pacemaker. 4. Mild interval increase in air space opacities in right lower zone. 5. Stable prominent markings in bilateral lungs. 6. Cardiomegaly. Electronically signed by Yas Jenkins 08-25-2024 08:43 AM I & O Totals 24 Hours 08/24/24 08/25/24 08/26/24 06:59 06:59 06:59 Intake Total 1581.543 / 1581.543 520.593 / 688.231 7490.996 / 1217.996 Output Total 1085 / 1085 1295 / 1295 Balance 496.543 / 496.543 -774.407 / -125.928 3421.996 / 1217.996 Cumulative 08/17/24 14:49 thru 08/25/24 09:39 Intake Total 6089.008 Output Total 7630 Balance -1540.992 RT Ventilator Mngmt (Last Documented) Ventilator Ordered Settings Ventilator Support Mode Assist Control 08/25/24 08 :00 Respiratory Rate 21 08/25/24 08:45 Ventilator Tidal Volume 340 08/25/24 08:00 Setting Minute Ventilation 7 08/25/24 07:06 Positive End Expiratory 5 08/25/24 08:00 Pressure Fraction of Inspired Oxygen 40 08/25/24 08:00 Machine Comment Placed on vent post-intubation, 08/24/24 15:27 weaned to 70% Ventilator - PT Measurements Respiratory Rate 21 Exhaled Tidal Volume 344 Minute Ventilation 7 Peak Inspiratory Airway 16 Pressure Plateau Pressure 11 Respiratory Cycle Inspiratory: 1:3.3 Expiratory Ratio Inspiratory Phase Time 0.7 End-Tidal CO2 39 Static Lung Compliance 57.33 Dynamic Lung Compliance 31.27 Normal Static Lung Compliance 47.00 Patient Measurements Comment fiO2 decreased to 40% at this time. Coding Level of Care Code 69582 CRITICAL CARE 1ST 30-74M Diagnoses Acute encephalopathy G93.40 Acute hypoxemic respiratory failure J96.01 Sepsis A41.9 Influenza J11.1 Pneumonitis J98.4
[2024-08-25 10:44] LABS: Reticulocyte % 1.84 % (0.50-2.00)
[2024-08-25] MEDS: POTASSIUM CHLORIDE 20 MEQ/15 ML UDC NG ONE (10:58)
[2024-08-25 10:59] LABS: Iron < 10 mcg/dl (35-150); Transferrin 186 mg/dl (200-360)
[2024-08-25] MEDS: FUROSEMIDE INJ 20 MG/2 ML VIAL IV ONE (10:59)
[2024-08-25] MEDS: POTASSIUM CHLORIDE / WTR 20 MEQ/100 ML PLCT IV SCH (11:00)
[2024-08-25] MEDS: ENOXAPARIN INJ 40 MG/0.4 ML SYR SQ SCH (11:10)
[2024-08-25 11:15] LABS: Ferritin 735.5 ng/ml (8-388)
[2024-08-25 11:40] LABS: Folate (Folic Acid),Ser orPlas > 22.30 ng/ml (>5.38)
[2024-08-25 11:41] LABS: Vitamin B12 586 pg/ml (180-914)
--- NOTE | 2024-08-25 15:10 | Electrocardiogram Report ---
Test Reason : Blood Pressure : */* mmHG Vent. Rate : 80 BPM Atrial Rate : 56 BPM P-R Int : * ms QRS Dur : 114 ms QT Int : 456 ms P-R-T Axes : * 57 25 degrees QTcB Int : 525 ms Ventricular-paced rhythm Abnormal ECG When compared with ECG of 23-Aug-2024 09:44, No significant change was found Confirmed by Rubén Ojeda ([id number]) on 08/25/2024 3:09:50 PM Referred By: REFERRED SELF Confirmed By: Rubén Ojeda
[2024-08-25] MEDS: TUBE FEEDING WATER FLUSH OG SCH (17:18)
--- NOTE | 2024-08-25 21:29 | Hospitalist Progress Note ---
Date of Service August 25, 2024 Assessment & Plan (1) Acute hypoxemic respiratory failure: Plan: This pt is a 74 yo female with a h/o ischemic CVA with hemorrhagic conversion s/p TNK, spontaneous ICH, HTN, PAF with pacer, DMII, muscular dystrophy, SIADH,who p/w worsening SOB and hypoxia. Found to be hypoxic on arrival and CT chest showed PNA. Initial BioFire neg for Influenza and everything else. #Pneumonia/Influenza A/ Acute respiratory failure with hypoxia---> 2/2 pneumonia and some component of acute on chronic HFpEF-with increasing BNP and CT with possible pulmonary edema. Procal negative on admission Pneumonia worse on CT from admission 08/[address] from 08/15 as an outpatient with increasing nodular opacities Consult pulmonology appreciated-added Cefepime and steroids Allergies and prolonged QT prevented addition of atypical coverage although her bio fire is negative for mycoplasma, Legionella urine antigen negative Appreciate ID consult-initially recommended continue cefepime only for now and if worsens or decompensates, consider bronchoscopy and adding Flagyl versus switching to meropenem. Could also consider desensitization to doxycycline if concern for atypical pneumonia. However, with worsening confusion on 08/20, switched cefepime to meropenem 08/22 developed fever, worsening hypoxia requiring 6LNC, became obtunded with ABG c/w acute resp alkalosis from sepsis. Repeat CXR shows worsening multifocal PNA. CT A/P with nodular infiltrates at lung bases but otherwise no acute issues. CT head with maxillary sinusitis. UA neg for infection. Procal neg. Biofire now POSITIVE for Influenza A ABG c/w acute respiratory alkalosis. SHe was intubated on 08/22 for being obtunded with severe encephalopathy. Had LP with no evidence of meningitis Bronchoscopy 08/23 showed multilobar PNA, BALs collected from bilateral lower lobes, no diffuse hemorrhage -still intubated 08/25 -failed extubation on 08/24 -likely 2nd to influenza A Given 5 kg increase in wieght, IVF stopped and placed on IV lasix. -Continue meropenem and doxycycline for possible superimposed bacterial PNA -Continue bronchodilator nebs, continue inhaled fluticasone, umeclidinium/vilanterol -follow up bronchoscopy culture results, still pending -critical care following (2) Pneumonia: Plan: With increasing nodular opacities and groundglass opacities diffusely on CT, treatment noted as above -on Meropenem and doxycycline (3) Influenza: Plan: no Tamiflu to be given due to case reports of prolonged QT (4) Acute encephalopathy: Plan: Patient with worsening confusion since hospitalization as per family members. She does have baseline moderate expressive aphasia and some cognitive deficits. She did have a fall in the a.m. of 08/20-repeat head CT negative for hemorrhage, no new focal neuro deficits Cefepime switched to meropenem in case cefepime causing worsening delirium She has not moved her bowels in at least 5 days-added on bisacodyl as needed, added on Senokot On the morning of 08/21 patient was even more lethargic and confused-repeat head CT again performed due to head trauma the day before and history of intracranial hemorrhage-negative 08/22 became obtunded as above, repeat CT head neg for acute. With Influenza A + most likely cause of delirium Continue supportive care, promote good sleep-wake cycles once off sedation Continue treating infection of pneumonia and influenza Continue supplemental O2 to keep pulse ox greater than 90%-currently on vent Encephalopathy likely 2nd to Influenza A (5) Fall: Plan: Got out of bed on her own on 08/20 a.m. and fell and struck her head on the metal register as witnessed by environmental services Has a very minor abrasion on left upper back otherwise no injuries CT head negative PT/OT evaluation once condition improves. (6) UTI (urinary tract infection): Plan: Likely asymptomatic bacteriuria- urine culture with Enterococcus faecalis and Pseudomonas aeruginosa Discussed with ID-treating anyway with meropenem -con't meropenum (7) Iron deficiency anemia: Plan: Hemoglobin 9.3-9.9, iron studies show transferrin saturation very low at 5% B12 and folate normal Started oral iron supplement Does have hematuria microscopic-follow as an outpatient Consider GI workup if not done recently Heme is now 7.9 (8) Acute heart failure with preserved ejection fraction: Plan: Could possibly be due to previous salt tablets No significant leg edema to suggest right sided heart failure Echo from outpatient in 07/2024 shows EF 60-64%, moderate LVH, small posterior loculated pericardial effusion without tamponade Repeat echo here with preserved EF, no significant valvular disease UA with only trace protein, no prior liver problems and LFTs normal Diuresed over 3 L net negative. Converted IV Lasix to p.o. 20 mg daily on 08/19 but now on hold while NPO on vent Strict I&Os, daily weights, low-sodium diet BNP normal resumed lasix Plan #Prolonged QT interval-QT difficult to interpret on EKG here even on repeat on 08/18 which shows paced rhythm atrial flutter. Appreciate cardiology consultation-historically when in sinus rhythm, she also had prolonged QT, hence they recommend avoiding QT prolonging agents #HTN -BPs normal, continue hydralazine, losartan, and Lasix, but discontinued Toprol-XL #pAfib/flutter- presence of Watchman hence no anticoagulation, permanent, appreciate cardiology consultation discontinue Toprol-XL due to shortness of breath #Hyponatremia-sodium 130 on arrival and now improved to 139 with diuresis-follow BMP #JG - CPAP HS once off vent #Recent hemorrhagic stroke-has repeat head CT as an outpatient scheduled for 09/05, follows with neurology. Repeat head CT here after fall in 08/20 and again on 08/21 negative for acute VTE Prophylaxis - SCDs, deferred chemical due to recent bloody LP Acute respiratory failure requiring intubation 2nd to Influenza A with multilobar PNA, s/p bronchoscopy on 08/23 Encephalopathy 2nd to influenza A Disposition -continued stay in ICU Critical care following Admission and Anticipated Discharge Date Admission Date: August 17, 2024 Subjective Patient is intubated. Physical Exam Physical Exam: Patient is intubated. Heart: RRR lungs: vent settings reviewed during rounds Abd: ND, soft extremities: no edema. Results & Data Results & Data Vital Signs (Past 12 Hours) Vital Signs Temp Pulse Resp BP Pulse Ox FiO2 08/25/24 20:33 80 21 96 40 08/25/24 17:38 80 08/25/24 17:30 37.1 C 80 25 H 95 08/25/24 17:30 145/77 H 08/25/24 17:15 143/71 H 08/25/24 17:09 37.1 C 80 19 96 08/25/24 17:06 37.1 C 80 20 95 08/25/24 17:00 124/67 08/25/24 17:00 124/67 08/25/24 16:30 116/68 08/25/24 16:27 37.1 C 80 20 97 08/25/24 16:15 113/68 08/25/24 16:06 37.1 C 80 20 96 08/25/24 16:00 37.1 C 80 20 97 08/25/24 16:00 114/67 08/25/24 16:00 114/67 08/25/24 16:00 114/67 08/25/24 16:00 40 08/25/24 15:45 107/62 08/25/24 15:45 107/62 08/25/24 15:39 37.1 C 80 20 96 08/25/24 15:30 37.1 C 80 20 96 08/25/24 15:30 111/64 08/25/24 15:30 111/64 08/25/24 15:30 111/64 08/25/24 15:30 111/64 08/25/24 15:15 111/63 08/25/24 15:12 37.1 C 80 20 96 08/25/24 15:06 37.2 C 80 20 97 08/25/24 15:00 106/60 08/25/24 14:54 37.1 C 80 20 96 08/25/24 14:50 80 20 96 40 08/25/24 14:45 37.2 C 80 20 96 08/25/24 14:45 109/61 08/25/24 14:45 109/61 08/25/24 14:45 109/61 08/25/24 14:45 109/61 08/25/24 14:30 108/62 08/25/24 14:27 37.2 C 80 20 95 08/25/24 14:15 108/61 08/25/24 14:15 108/61 08/25/24 14:15 37.2 C 80 20 96 08/25/24 14:06 37.2 C 80 20 96 08/25/24 14:00 117/64 08/25/24 14:00 117/64 08/25/24 13:51 37.2 C 80 20 96 08/25/24 13:45 108/60 08/25/24 13:33 37.3 C 80 20 95 08/25/24 13:30 134/73 08/25/24 13:30 134/73 08/25/24 13:30 134/73 08/25/24 13:30 37.2 C 80 21 97 08/25/24 13:15 109/60 08/25/24 13:12 37.3 C 80 20 97 08/25/24 13:00 111/60 08/25/24 13:00 37.3 C 80 20 96 08/25/24 12:45 102/56 L 08/25/24 12:39 37.4 C 80 20 95 08/25/24 12:30 37.5 C 80 20 93 08/25/24 12:30 104/57 L 08/25/24 12:24 37.5 C 80 20 93 08/25/24 12:00 40 08/25/24 11:45 127/72 08/25/24 11:45 37.7 C H 80 20 93 08/25/24 11:15 167/79 H 08/25/24 11:09 38.0 C H 80 19 92 08/25/24 11:04 164/71 H 08/25/24 11:00 37.9 C H 80 28 H 93 08/25/24 10:52 80 22 93 40 08/25/24 10:45 181/82 H 08/25/24 10:39 37.8 C H 80 32 H 96 08/25/24 10:00 37.9 C H 80 21 143/73 H 96 08/25/24 10:00 143/73 H 08/25/24 09:45 37.9 C H 80 20 96 08/25/24 09:33 37.8 C H 80 24 96 08/25/24 09:30 156/105 H 08/25/24 09:30 37.8 C H 80 17 97 PG Care Time/CCT Total # of Minutes Spent Total Time Spent with Patient: Total time spent is greater than 50% in coordination of care (as documented) at patient's floor/unit and/or counseling patient: Coding Level of Care Code 04431 SUB INP/OBS CARE 3/50MIN Diagnoses Acute hypoxemic respiratory failure J96.01 Pneumonia J18.9 Influenza J11.1 Acute encephalopathy G93.40 Fall, initial encounter W19.XXXA Encounter type: initial encounter Urinary tract infection without hematuria, site unspecified N39.0 Hematuria presence: without hematuria Urinary tract infection type: site unspecified Iron deficiency anemia D50.9 Acute heart failure with preserved ejection fraction I50.31 (5) Fall Encounter type: initial encounter Qualified Code(s): W19.XXXA - Unspecified fall, initial encounter (6) UTI (urinary tract infection) Hematuria presence: without hematuria Urinary tract infection type: site unspecified Qualified Code(s): N39.0 - Urinary tract infection, site not specified
[2024-08-26 05:34] LABS: Basophils # (auto) 0.01 K/uL (0.00-0.20); Basophils % (auto) 0.2 %; Eosinophils # (auto) 0.11 K/uL (0.00-0.50); Eosinophils % (auto) 1.8 %; Hematocrit (blood only) 24.2 % (37.0-47.0); Hemoglobin 7.4 g/dl (12.0-16.0); Immature Granulocytes # (auto) 0.06 K/uL (0.01-0.20); Lymphocytes # (auto) 0.57 K/uL (1.20-3.40); Lymphocytes % (auto) 9.5 %; Mean Corpuscular Hemoglobin 26.1 pg (25.0-34.0); Mean Corpuscular Hgb Conc 30.6 g/dL (32.0-36.0); Mean Corpuscular Volume 85.2 fL (80.0-100.0); Mean Platelet Volume 10.2 fL (9.4-12.4); Monocytes # (auto) 0.12 K/uL (0.11-0.59); Neutrophils # (auto) 5.15 K/uL (1.40-6.50); Neutrophils % (auto) 85.5 %; Platelet Count 233 K/uL (130-400); RDW Coefficient of Variation 14.7 % (11.5-14.5); RDW Standard Deviation 45.4 fL (36.4-46.3); Red Blood Count 2.84 M/uL (4.20-5.40); White Blood Count 6.02 K/ul (4.8-10.8)
[2024-08-26 05:35] LABS: BUN Creatinine Ratio 47.4 (10-20); Calcium 9.5 mg/dl (8.6-10.3); Creatinine Clr Calc Pharmacy 56.1 ml/min; Magnesium 1.9 mg/dl (1.7-2.4); Potassium 4.4 mmol/L (3.5-5.1)
[2024-08-26 06:04] LABS: RBC Morphology Unremarkable
--- NOTE | 2024-08-26 06:57 | Critical Care Progress Note ---
Date of Service August 26, 2024 Assessment & Plan (1) Acute hypoxemic respiratory failure: (2) Pneumonia: (3) Influenza: (4) Acute encephalopathy: (5) Fall: (6) UTI (urinary tract infection): (7) Iron deficiency anemia: (8) Acute heart failure with preserved ejection fraction: Plan Reason Critically Ill: Acute respiratory failure requiring intubation 2/2 to Influenza A with multilobar pneumonia and recent decrease in mental status prompting ICU admission PLAN: Neuro: Encephalopathy: Likely multifactorial to include prior CVAs and sepsis -Expressive aphasia at baseline -Lives at home with Resp: Acute hypoxic respiratory failure in the setting of influenza A -Failed extubation yesterday, currently FiO2 40%, planning for terminal extubation tomorrow morning, 08/27/24 at 8am with family present -Continue bronchodilator nebs, continue inhaled fluticasone, umeclidinium/vilanterol -follow up bronchoscopy culture results, still pending - JG, CPAP HS once off ventilator CV: Prolonged QTc on EKG - potassium resolved to 4.4 - avoid QT-prolonging drugs when possible Fluids/Renal: 5 kg increase in weight - 20 mg IV Lasix given yesterday 08/25/24, consider again today upon reassessment of fluid status - eGFR improving, creatinine WNL ID: Influenza A -Tamiflu high dose, watch for prolonged QTc Possible secondary bacterial infection: -Meropenem and doxycycline day 8 today, extend to day 10 -Infectious diseases reconsulted: recommended to continue meropenem, doxy, and tamiflu for the time being. - pending less common pulmonary infectious etiologies Simple urinary tract infection: Treating a E faecalis and Pseudomonas urinary tract infection for 7 days GI/Nutrition: Protonix IV for GI prophylaxis - Tube feeds initiated yesterday 08/25/24 - checking LFTs for possible elevation as we are still investigating source of possible infection considering fever, 08/26/24 abdominal exam unremarkable On bowel regimen last BM on 08/22 Heme: Anemia: NOS likely multifactorial initial anemia was diagnosed back in June -Send anemia labs - hemoglobin 7.6 -> 7.9 -> 7.4 - continue monitoring DVT prophylaxis: Lovenox Endocrine: ICU hyperglycemia protocol Vascular access: Right IJ CVC placed 08/24 Code Status: DNR/DNI Disposition: ICU VTE Prophylaxis - on lovenox Admission and Anticipated Discharge Date Admission Date: August 17, 2024 Supervising Physician Co-Signing Physician Notes Dr. Thomas was resident physician during care of patient. I separately evaluated patient for angel portions of the history and the exam. I was present during the critical portion of medical decision making, and I discussed the case with the resident. I generally agree with the findings and plan. Bedside discussion with patient's , son, [id number], sister all in agreement that patient would not want to undergo tracheostomy for inability to liberate from ventilator. Discussed prognosis and treatment pathways for liberation from ventilator. Patient appears somewhat agitated and mildly tachypneic today we will defer extubation today and attempt tomorrow at 8:00, family would like to be present. Believe patient's prior CVAs put her at risk for aspiration and difficulty with managing secretion clearance. Described process of utilizing narcotic for oxygen hunger and also the double effect of oversedation. Patient critically ill secondary to pneumonia secondary to influenza A. Subjective Patient was seen and evaluated at bedside this AM, sedated, intubated with ventilator on control-assist, FiO2 40% currently. Not currently opening eyes or following any commands, but not currently appearing to be in any significant distress. Physical Exam Physical Exam: General: Sedated, nontoxic in appearance, not alert and unable to gauge orientation. Skin: b/l hands slightly cool to touch, 1+ pitting edema b/l hands, areas of ecchymosis R>L dorsal hands Head: NC/AT Eyes: pupils constricted b/l, minimal change with and without pen light, unable to assess EOM Ears, nose, mouth and throat: airway obscured by endotracheal tube Cardiovascular: RRR, no murmurs/rubs/gallops heard on auscultation; 2+ radial pulses, 2+ dorsalis pedis pulses, no cyanosis/clubbing seen Respiratory: mechanical ventilation, lungs clear to auscultation b/l, no wheezes/rales/rhonchi heard on auscultation, Ventilator settings reviewed- FiO2 40% Gastrointestinal: Non distended, +BS, nontender to palpation based on lack of patient response though may be blunted by sedation, no ecchymoses seen, negative beltrán's sign, no hepatosplenomegaly observed Musculoskeletal: b/l LE SCDs in place, no gross deformity of extremities Results & Data Results & Data Vital Signs (Past 12 Hours) Vital Signs Temp Pulse Resp BP Pulse Ox O2 Del Method FiO2 08/26/24 06:45 114/62 08/26/24 06:30 106/57 L 08/26/24 06:21 37.7 C H 80 20 95 08/26/24 06:15 96/53 L 08/26/24 06:15 96/53 L 08/26/24 06:15 96/53 L 08/26/24 06:03 37.7 C H 80 20 94 08/26/24 06:00 98/54 L 08/26/24 06:00 98/54 L 08/26/24 05:45 98/55 L 08/26/24 05:39 37.6 C H 80 20 96 08/26/24 05:33 37.6 C H 80 20 96 08/26/24 05:30 103/55 L 08/26/24 05:15 112/60 08/26/24 05:15 112/60 08/26/24 05:12 37.6 C H 80 19 96 08/26/24 05:06 37.5 C 80 18 95 08/26/24 05:00 128/64 08/26/24 05:00 128/64 08/26/24 04:54 37.5 C 80 19 96 08/26/24 04:45 137/72 08/26/24 04:45 137/72 08/26/24 04:45 137/72 08/26/24 04:45 37.5 C 80 19 97 08/26/24 04:30 37.4 C 80 20 96 08/26/24 04:30 132/70 08/26/24 04:30 132/70 08/26/24 04:15 37.4 C 80 20 97 08/26/24 04:15 124/65 08/26/24 04:00 120/62 08/26/24 04:00 120/62 08/26/24 04:00 120/62 08/26/24 04:00 120/62 08/26/24 04:00 37.5 C 80 20 97 08/26/24 04:00 40 08/26/24 03:45 115/62 08/26/24 03:45 115/62 08/26/24 03:39 37.4 C 80 20 96 08/26/24 03:33 37.4 C 80 20 96 08/26/24 03:30 98/53 L 08/26/24 03:30 98/53 L 08/26/24 03:27 37.4 C 80 20 96 08/26/24 03:15 37.4 C 80 18 96 08/26/24 03:15 93/51 L 08/26/24 03:15 93/51 L 08/26/24 03:04 80 20 96 40 08/26/24 03:03 37.4 C 80 20 96 08/26/24 03:00 88/47 L 08/26/24 02:45 89/47 L 08/26/24 02:39 37.5 C 80 21 96 08/26/24 02:03 37.5 C 80 20 95 08/26/24 02:00 89/46 L 08/26/24 02:00 89/46 L 08/26/24 01:45 89/49 L 08/26/24 01:45 89/49 L 08/26/24 01:30 37.6 C H 80 22 97 08/26/24 01:30 92/49 L 08/26/24 01:30 92/49 L 08/26/24 01:15 37.7 C H 80 20 96 08/26/24 01:15 93/50 L 08/26/24 01:15 93/50 L 08/26/24 01:15 93/50 L 08/26/24 01:15 93/50 L 08/26/24 01:03 37.7 C H 80 20 95 08/26/24 01:00 88/47 L 08/26/24 01:00 88/47 L 08/26/24 01:00 88/47 L 08/26/24 00:42 37.9 C H 80 20 95 08/26/24 00:15 38.1 C H 80 20 94 08/26/24 00:15 93/47 L 08/26/24 00:15 93/47 L 08/26/24 00:00 40 08/26/24 00:00 80 08/26/24 00:00 38.3 C H 80 20 93 08/26/24 00:00 95/47 L 08/26/24 00:00 95/47 L 08/26/24 00:00 95/47 L 08/25/24 23:45 95/47 L 08/25/24 23:30 38.6 C H 80 19 92 08/25/24 23:30 100/50 L 08/25/24 23:30 100/50 L 08/25/24 23:06 38.7 C H 80 19 95 08/25/24 23:00 80 20 93 40 08/25/24 22:45 38.7 C H 80 20 97 08/25/24 22:45 146/70 H 08/25/24 22:30 143/66 H 08/25/24 22:24 38.7 C H 80 23 96 08/25/24 22:15 137/67 08/25/24 22:15 137/67 08/25/24 22:15 137/67 08/25/24 22:09 38.6 C H 80 20 96 08/25/24 22:03 38.6 C H 80 21 96 08/25/24 22:00 143/67 H 08/25/24 22:00 143/67 H 08/25/24 22:00 143/67 H 08/25/24 21:54 38.5 C H 80 19 96 08/25/24 21:45 38.5 C H 80 20 96 08/25/24 21:45 144/71 H 08/25/24 21:45 144/71 H 08/25/24 21:39 38.4 C H 80 22 96 08/25/24 21:30 164/76 H 08/25/24 21:21 38.4 C H 80 20 97 08/25/24 21:15 38.3 C H 80 18 97 08/25/24 21:15 148/69 H 08/25/24 21:09 38.3 C H 80 21 97 08/25/24 21:00 146/67 H 08/25/24 20:57 38.2 C H 80 20 97 08/25/24 20:45 127/62 08/25/24 20:45 127/62 08/25/24 20:45 127/62 08/25/24 20:39 38.1 C H 80 26 H 95 08/25/24 20:33 80 21 96 40 08/25/24 20:30 38.0 C H 80 20 95 08/25/24 20:30 126/62 08/25/24 20:30 126/62 01/20/25 20:30 126/62 08/25/24 20:00 132/64 08/25/24 20:00 132/64 08/25/24 20:00 132/64 08/25/24 20:00 132/64 08/25/24 20:00 37.8 C H 80 20 96 08/25/24 20:00 40 08/25/24 20:00 Mechanical Vent 40 08/25/24 19:45 132/67 08/25/24 19:39 37.6 C H 80 17 95 08/25/24 19:30 169/75 H 08/25/24 19:30 169/75 H 08/25/24 19:15 37.5 C 80 20 96 08/25/24 19:15 159/81 H 08/25/24 19:15 159/81 H 08/25/24 19:15 159/81 H 08/25/24 19:00 37.4 C 80 20 96 08/25/24 19:00 152/74 H 08/25/24 19:00 152/74 H Resident Activity Tracking Resident Involvement: Resident Care Provided Care Provided: Adult Hospital Medicine (5) Fall Encounter type: initial encounter Qualified Code(s): W19.XXXA - Unspecified fall, initial encounter (6) UTI (urinary tract infection) Hematuria presence: without hematuria Urinary tract infection type: site unspecified Qualified Code(s): N39.0 - Urinary tract infection, site not specified
--- NOTE | 2024-08-26 09:08 | Infectious Disease Progress Nt ---
Date of Service August 26, 2024 Assessment & Plan (1) Prolonged QT interval: (2) Pneumonia: Plan This is a 74-year-old female with a past medical history of myotonic dystrophy, atrial fibrillation, CVAs, hypertension, emphysematous lung disease, neuromuscular weakness who presents to the ED with shortness of breath and hypoxia. She is on oxygen at home as needed. She denies any fevers, chills, nausea, vomiting. Denies any aspiration events. Sats at home were in the 70s. In the ED temperature 36.4, pulse 90, RR 34, blood pressure 170/96, O2 sat 78% on room air-->95% on 5l . Labs: WBC 8.46, hemoglobin 10.9, hematocrit 33.7, platelets 389, BUN 18, creatinine 0.77. Respiratory viral panel negative. Urine Legionella antigen negative, MRSA screen negative.. Procalcitonin 0.06. CTA chest with no pulmonary embolism; + groundglass opacities and nodular densities which may represent infectious/inflammatory airway disease. Repeat imaging shows multifocal patchy areas of groundglass and a few regions of nodular opacities most consistent with an atypical infectious process. Findings were increased from 05/2025. There is mild superimposed interstitial pulmonary edema. Chest x-ray shows no glass infiltrate on the right base concerning for pneumonia which could be infectious or related to aspiration. There is acute on chronic interstitial changes ; c/f pulmonary edema or infectious pneumonitis. TTE with trace pericardial effusion. She was started on cefepime 08/18. ID consulted for possible atypical pneumonia as patient is unable to receive azithromycin and doxycycline. Per her chart, she has documented allergies listed: Itching/yeast infections with moxifloxacin, itching with tetracyclines, rash with penicillins, anaphylaxis with sulfa. When asked if she remembers exactly what occurs when she received these antibiotics, she does not remember. She is not certain if these allergies are accurate. An EKG shows an prolonged QTc; 604 on 08/18 and 523 on 08/17. Pulmonology is following: Initially there were no plans for bronchoscopy given underlying comorbidities. Micro UCx 08/17 >100K E faecalis ( amp S), Pseudomonas Aer Blood culture 08/22 staph epi and 2 out of 4 bottles CSF culture 08/22 no growth Bronc culture 08/22 many polys on Gram stain, no organisms, no growth: Scant normal graham, no yeast or hyphae seen Legionella culture 08/22 pending Legionella species 08/23 PCR pending Pneumocystis jirovecii/ PCR pending Abx Cefepime 08/18-08/20 Meropenem 08/20- ongoing Acyclovir 08/22 vanco 08/22 Tamiflu 08/24-ongoing Doxycycline 08/22- ongoing # Acute hypoxic respiratory failure # Pneumonia vs Pneumonitis # Staph epi bacteremia, likely contaminant #Influenza A infection # Abx allergies - PCN : rash -Tetracycline: itching -Moxifloxacin: itching -Sulfa- swelling # Prolonged QTC # Myotonic dystrophy #PPM in place #Asymptomatic bacteriuria Discussion- Procalcitonin on admission was low at 0.06 and she remained afebrile. It was initailly unclear if presentation was 2/2 pneumonia vs pneumonitis. There was c/f atypical infection and aspiration on imaging. Urine legionella ag negative. Mycoplasma pna and Chlamydia pna pcr negative ( on RVP). MRSA screen negative. She has documented allergies as per above, but she was not sure of the reactions. Recommended that if continued concern for atypical pneumonia, can consider desensitization to doxycycline but would hold azithromycin or fluoroquinolones for now as QTC is prolonged 08/20 Pseudomonas and Enterococcus faecals grew in urine. Asymptomatic for UTI. Fell over night now with increased confusion. There was concern for Cefepime effects, so discontinued Cefepime given increased confusion. Started Meropenem instead for PNA coverage. This will also cover E faecalis although no coverage needed with asymptomatic bacteriuria. 08/21 She was clinically improving and has less o2 requirements. Now on 3LNC (from 5L). No plans for bronch per pulm as clinically improving. ID recommended 7 days of antibiotics. 08/22 ID asked to reeval as she had fevers Tm 39, worsening respiratory status and worsening mental status. No mention of new rash or ulcer per d/w team. Changed Meropenem to [employer] dosing , added vanco and acyclovir pending LP although it was less likely that she developed a nosocomial [employer] infection. CT head with no acute pathology. CTAP showed. CTAB mild patchy bibasilar opacities in the lower lungs consistent with an atypical infectious process. No infectious process seen in the abdomen or pelvis. Intubated and mechanically vented. Procal 0.46. Doxycycline started. 08/26 long weekend events reviewed . CSF not c/w meningitis. CSF fluid with 0 WBC, 53 RBC, 87 glucose, 57 protein, meningitis encephalitis panel negative Repeat respiratory viral panel positive for influenza A (H3) on PCR. On tamiflu now. failed extubation on 08/24 and remains intubated. She underwent bronch on 08/23: There appeared to be bilateral friable tissue with thick white mucoid secretions emanating from all lobes . Recommendations Continue Meropenem 500 mg q8h, IF crcl > 50, then 1 g IV q8 h Anticipate a total of 10-14 days based on clincal picture Continue doxycycline 100 mg Iv q12h . Duration depends of results of Legionella cx Continue [id number] mg q12 (cr cl 46.5) for 5-10 days based on clinical picture. If crcl > 50, can increase to 75 mg IV q12h Follow up legionella culture, legionella pcr, aspergillus pcr and PJP pcr from 08/23 bronch ID will continue to follow. Efraín Toth MD, MPH Infectious Disease [facility] Call [phone] with questions. Admission and Anticipated Discharge Date Admission Date: August 17, 2024 Subjective Subsequent visit was provided via telemedicine using two-way real-time interactive telecommunication between the patient and the telemedicine provider. For the duration of the visit, the provider was performing the assessment from a different facility than the patient. This includesuse of bluetooth stethoscope forauscultationperformed by the telepresenter that the telemedicine provider can hear if described in the physical exam. Paper Twister Tender contact information: Please call [facility] Center [phone]. (Phone Number For Physician Use Only) After establishing a telemedicine visit, patient was: Patient was verified with two unique identifiers Time Spent with Patient: Subsequent => 35 min intubated, on breathing trial, not communicative Influenza A + on tamiflu Physical Exam Physical Exam: Gen- Intubated HEENT- ATNC, anicteric sclera Neck- supple Lungs- Intubated, mech ventilated. Abdomen- soft, NT Ext- No edema Neuro- sedated Results & Data Vital Signs (Past 12 Hours) Vital Signs Temp Pulse Resp BP Pulse Ox FiO2 08/26/24 08:12 80 21 96 40 08/26/24 06:45 114/62 08/26/24 06:30 106/57 L 08/26/24 06:21 37.7 C H 80 20 95 08/26/24 06:15 96/53 L 08/26/24 06:15 96/53 L 08/26/24 06:15 96/53 L 08/26/24 06:03 37.7 C H 80 20 94 08/26/24 06:00 98/54 L 08/26/24 06:00 98/54 L 08/26/24 05:45 98/55 L 08/26/24 05:39 37.6 C H 80 20 96 08/26/24 05:33 37.6 C H 80 20 96 08/26/24 05:30 103/55 L 08/26/24 05:15 112/60 08/26/24 05:15 112/60 08/26/24 05:12 37.6 C H 80 19 96 08/26/24 05:06 37.5 C 80 18 95 08/26/24 05:00 128/64 08/26/24 05:00 128/64 08/26/24 04:54 37.5 C 80 19 96 08/26/24 04:45 137/72 08/26/24 04:45 137/72 08/26/24 04:45 137/72 08/26/24 04:45 37.5 C 80 19 97 08/26/24 04:30 37.4 C 80 20 96 08/26/24 04:30 132/70 08/26/24 04:30 132/70 08/26/24 04:15 37.4 C 80 20 97 08/26/24 04:15 124/65 08/26/24 04:00 120/62 08/26/24 04:00 120/62 08/26/24 04:00 120/62 08/26/24 04:00 120/62 08/26/24 04:00 37.5 C 80 20 97 08/26/24 04:00 40 08/26/24 03:45 115/62 08/26/24 03:45 115/62 08/26/24 03:39 37.4 C 80 20 96 08/26/24 03:33 37.4 C 80 20 96 08/26/24 03:30 98/53 L 08/26/24 03:30 98/53 L 08/26/24 03:27 37.4 C 80 20 96 08/26/24 03:15 37.4 C 80 18 96 08/26/24 03:15 93/51 L 08/26/24 03:15 93/51 L 08/26/24 03:04 80 20 96 40 08/26/24 03:03 37.4 C 80 20 96 08/26/24 03:00 88/47 L 08/26/24 02:45 89/47 L 08/26/24 02:39 37.5 C 80 21 96 08/26/24 02:03 37.5 C 80 20 95 08/26/24 02:00 89/46 L 08/26/24 02:00 89/46 L 08/26/24 01:45 89/49 L 08/26/24 01:45 89/49 L 08/26/24 01:30 37.6 C H 80 22 97 08/26/24 01:30 92/49 L 08/26/24 01:30 92/49 L 08/26/24 01:15 37.7 C H 80 20 96 08/26/24 01:15 93/50 L 08/26/24 01:15 93/50 L 08/26/24 01:15 93/50 L 08/26/24 01:15 93/50 L 08/26/24 01:03 37.7 C H 80 20 95 08/26/24 01:00 88/47 L 08/26/24 01:00 88/47 L 08/26/24 01:00 88/47 L 08/26/24 00:42 37.9 C H 80 20 95 08/26/24 00:15 38.1 C H 80 20 94 08/26/24 00:15 93/47 L 08/26/24 00:15 93/47 L 08/26/24 00:00 40 08/26/24 00:00 80 08/26/24 00:00 38.3 C H 80 20 93 08/26/24 00:00 95/47 L 08/26/24 00:00 95/47 L 08/26/24 00:00 95/47 L 08/25/24 23:45 95/47 L 08/25/24 23:30 38.6 C H 80 19 92 08/25/24 23:30 100/50 L 08/25/24 23:30 100/50 L 08/25/24 23:06 38.7 C H 80 19 95 08/25/24 23:00 80 20 93 40 08/25/24 22:45 38.7 C H 80 20 97 08/25/24 22:45 146/70 H 08/25/24 22:30 143/66 H 08/25/24 22:24 38.7 C H 80 23 96 08/25/24 22:15 137/67 08/25/24 22:15 137/67 08/25/24 22:15 137/67 08/25/24 22:09 38.6 C H 80 20 96 08/25/24 22:03 38.6 C H 80 21 96 08/25/24 22:00 143/67 H 08/25/24 22:00 143/67 H 08/25/24 22:00 143/67 H 08/25/24 21:54 38.5 C H 80 19 96 08/25/24 21:45 38.5 C H 80 20 96 08/25/24 21:45 144/71 H 08/25/24 21:45 144/71 H 08/25/24 21:39 38.4 C H 80 22 96 08/25/24 21:30 164/76 H 08/25/24 21:21 38.4 C H 80 20 97 08/25/24 21:15 38.3 C H 80 18 97 08/25/24 21:15 148/69 H 08/25/24 21:09 38.3 C H 80 21 97 Laboratory Results Laboratory Results - last 48 hr 08/24/24 08/25/24 08/26/24 09:12 04:44 04:20 WBC 7.41 6.02 RBC 2.98 L 2.84 L Hgb 7.9 L 7.4 L Hct 25.4 L 24.2 L MCV 85.2 85.2 MCH 26.5 26.1 MCHC 31.1 L 30.6 L RDW Std Deviation 45.9 45.4 RDW Coeff of Lion 14.6 H 14.7 H Plt Count 237 233 MPV 9.6 10.2 Immature Gran % (Auto) 0.8 1.0 Neut % (Auto) 87.1 85.5 Lymph % (Auto) 8.4 9.5 Pine % (Auto) 3.4 2.0 Eos % (Auto) 0.3 1.8 Baso % (Auto) 0.0 0.2 Reticulocyte % (Auto) 1.84 Neut # (Auto) 6.46 5.15 Lymph # (Auto) 0.62 L 0.57 L Pine # (Auto) 0.25 0.12 Eos # (Auto) 0.02 0.11 Baso # (Auto) 0.00 0.01 Reticulocyte # 0.050 Immature Gran # (Auto) 0.06 0.06 RBC Morphology Unremarkable Polychromasia 1+ Ovalocytes 1+ Sodium 139 139 Potassium 3.5 4.4 D Chloride 102 104 Carbon Dioxide 34 H 32 Anion Gap 3 3 BUN 43 H 36 H Creatinine 0.91 0.76 Est Cr Clr Drug Dosing 46.8 56.1 eGFR 66.20 82.17 BUN/Creatinine Ratio 47.3 H 47.4 H Glucose 92 103 H POC Glucose 111 H Calcium 9.1 9.5 Magnesium 2.2 1.9 Iron < 10 L Transferrin 186 L Ferritin 735.5 H Vitamin B12 586 Folate > 22.30 Diagnostic Findings Microbiology 08/23/24 11:00 Bronch Wash, Trach Tree Fungal Smear - Final 08/23/24 11:00 Bronch Wash, Trach Tree Fungal Culture - Preliminary No yeast or fungus isolated - Report 1, Additional Report to Follow. 08/23/24 11:00 Bronch Wash, Trach Tree Gram Stain - Final 08/23/24 11:00 Bronch Wash, Trach Tree Bronchial Culture - Final Scant normal graham. 08/22/24 22:30 Sputum, Expectorated Gram Stain - Final 08/22/24 22:30 Sputum, Expectorated Sputum Culture - Final Light normal graham. 08/22/24 15:39 Blood Aerobic Blood Culture - Preliminary Staphylococcus epidermidis 08/22/24 15:39 Blood Anaerobic Blood Culture - Preliminary Staphylococcus epidermidis 08/22/24 16:00 Blood Aerobic Blood Culture - Preliminary No growth in Aerobic bottle after 48 hours. 08/22/24 16:00 Blood Anaerobic Blood Culture - Final 08/23/24 11:00 Bronch Wash, Trach Tree Acid Fast Bacilli Smear - Final 08/22/24 19:00 Cerebral Spinal Fluid Gram Stain - Final 08/22/24 19:00 Cerebral Spinal Fluid CSF Culture - Final No growth 08/17/24 18:12 Urine,Straight Cath Urine Culture - Final Enterococcus faecalis Pseudomonas aeruginosa Chest X-Ray 08/24/24 06:00 EXAM: XR chest 1V portable CLINICAL HISTORY: WHILE INTUBATED, EVAL TUBES/LINES/LUNG ROGERS. TECHNIQUE: X-ray image of the chest obtained in 1 frontal projection. COMPARISON: Prior X-ray dated 08/23/2024 for comparison. FINDINGS: ETT with tip 3.2 cm above ángela. Right CVL and NG tube in situ. Left side cardiac pacemaker. Pulmonary Parenchyma: Mild interval increase in air space opacities in right lower zone. Stable prominent markings in bilateral lungs. No evidence of pleural effusion or pleural thickening. Heart and Mediastinum: Cardiomegaly. No mediastinal widening or masses. No hilar or mediastinal lymphadenopathy. Bony Thorax: Bony thorax appears intact without fractures or deformities. Soft Tissues: Soft tissues overlying the chest wall are unremarkable. IMPRESSION: 1. ETT with tip 3.2 cm above the ángela. 2. Right CVL and NG tube in situ. 3. Left side cardiac pacemaker. 4. Cardiomegaly. 5. Mild interval increase in air space opacities in the right lower zone. 6. Stable prominent markings in bilateral lungs. Electronically signed by Yas Jenkins 08-24-2024 08:27 AM Chest X-Ray 08/24/24 17:24 EXAM: Radiograph of the Chest 1 View INDICATION: Intubation. TECHNIQUE: Frontal view of the chest. Image obtained at 5:59 PM. COMPARISON: 7:20 AM the same day FINDINGS: Lungs and pleural spaces: Worsening interstitial thickening and increased patchy bilateral basilar infiltrates. New small bilateral pleural effusions present. No evident pneumothorax. Impression . Heart: Stable large cardiac shadow. Mediastinum: Normal contour. Bones/joints: No fracture, erosion or dislocation. Soft tissues: No abnormality noted. No radiopaque foreign body noted. Tubes, lines and devices: The endotracheal tube terminates 4.3 cm above the ángela. Nasogastric tube tip in the gastric fundus. Right internal jugular catheter terminates at the cavoatrial junction. Upper abdomen: No abnormality noted. IMPRESSION: 1. Worsening CHF and/or pneumonia 2. Lines and tubes as above. ACT 112: Negative or not required by law. Electronically signed by Britany Joseph 08-24-2024 6:13 PM Chest X-Ray 08/25/24 06:00 EXAM: XR chest 1V portable CLINICAL HISTORY: While intubated, eval tubes, lines, lung rogers TECHNIQUE: An X-ray image of the chest is obtained in AP projection. COMPARISON: 08/24/2024 FINDINGS: ETT with tip 5.4 cm above ángela (satisfactory). Right CVL and NG tube in situ. Left side cardiac pacemaker. Pulmonary Parenchyma: Mild interval increase in air space opacities in right lower zone. Stable prominent markings in bilateral lungs. No evidence of pleural effusion or pleural thickening. Heart and Mediastinum: Cardiomegaly. No mediastinal widening or masses. No hilar or mediastinal lymphadenopathy. Bony Thorax: Bony thorax appears intact without fractures or deformities. Soft Tissues: Soft tissues overlying the chest wall are unremarkable. IMPRESSION: 1. ETT with tip 5.4 cm above ángela (satisfactory). 2. Right CVL and NG tube in situ. 3. Left side cardiac pacemaker. 4. Mild interval increase in air space opacities in right lower zone. 5. Stable prominent markings in bilateral lungs. 6. Cardiomegaly. Electronically signed by Yas Jenkins 08-25-2024 08:43 AM Medications Administered Home Medications Medication Instructions Recorded Confirmed Last Taken fluticasone propionate 50 2 spray intranasal DAILY PRN 04/13/22 08/17/24 03/05/24 mcg/actuation nasal Allergy Symptoms spray,suspension (Flonase Allergy Relief) albuterol sulfate 90 mcg/actuation 2 puff inhalation Q4H PRN 10/25/22 08/17/24 Unknown aerosol inhaler (Ventolin HFA) Shortness Of Breath #3 Inhalers fluticasone fur. 100 mcg-umeclid 1 inh inhalation DAILY #3 Inhalers 12/25/23 08/17/24 04/26/24 62.5 mcg-vilant 25 mcg inhalat.powder (Trelegy Ellipta) aspirin 81 mg chewable tablet 81 mg PO DAILY 02/07/24 08/17/24 04/26/24 levetiracetam 500 mg tablet 500 mg PO BID 02/07/24 08/17/24 04/26/24 (Keppra) multivitamin 1 tab PO DAILY 02/07/24 08/17/24 04/26/24 folic acid 1 mg tablet 1 mg PO BID 04/26/24 08/17/24 04/26/24 hydralazine 50 mg tablet 100 mg (2 x 50 mg) PO TID #90 tabs 05/21/24 08/17/24 Unknown cholecalciferol (vitamin D3) 50 50 mcg PO DAILY 06/29/24 08/17/24 Unknown mcg (2,000 unit) capsule magnesium oxide 400 mg (241.3 mg 400 mg PO QAM #0 tabs 07/01/24 08/17/24 Unknown magnesium) tablet metoprolol succinate 50 mg 50 mg PO DAILY #30 tabs 07/01/24 08/17/24 Unknown tablet,extended release 24 hr (Toprol XL) metformin 500 mg tablet 200 mg PO BID 08/12/24 08/17/24 Unknown prednisone 50 mg tablet 50 mg PO DAILY #3 tabs 08/14/24 08/17/24 Unknown olmesartan 40 mg tablet 40 mg PO DAILY 08/17/24 08/17/24 Unknown Active Medications Generic Name Dose Route Start Last Admin Trade Name Freq PRN Reason Stop Dose Admin Albuterol 3 ml 08/18/24 07:18 08/20/24 00:16 Albut/Ipratrop 3mg/0.5mg Neb 3 Ml Vial NEB 09/17/24 07:17 3 ml Q6R PRN Administration Shortness of breath, wheezing Protocol Aspirin 81 mg 08/18/24 09:00 08/25/24 08:12 Aspirin 81 Mg Chew PO 09/17/24 08:59 81 mg DAILY DOREEN Administration Enoxaparin Sodium 40 mg 08/25/24 11:00 08/26/24 08:09 Enoxaparin Inj 40 Mg/0.4 Ml Syr SQ 09/24/24 10:59 40 mg QAM DOREEN Administration Fentanyl Citrate 50 mcg 08/22/24 18:31 08/24/24 17:15 Fentanyl Bolus From Bag IV 09/05/24 18:30 25 mcg Q60M PRN Administration Pain or Agitation Ferrous Sulfate 325 mg 08/20/24 17:00 08/26/24 08:09 Ferrous Sulfate 325 Mg Tab PO 09/19/24 16:59 325 mg BIDM DOREEN Administration Folic Acid 1 mg 08/17/24 21:00 08/26/24 08:09 Folic Acid 1 Mg Tab PO 09/16/24 20:59 1 mg BID DOREEN Administration Formoterol Fumarate 20 mcg 08/18/24 19:00 08/26/24 08:00 Formoterol 20 Mcg/2 Ml Vial NEB 09/17/24 18:59 20 mcg BIDR DOREEN Administration Furosemide 20 mg 08/20/24 09:00 08/22/24 09:56 Furosemide 20 Mg Tab PO 09/19/24 08:59 20 mg QAM DOREEN Administration Hydralazine HCl 100 mg 08/17/24 21:00 08/23/24 08:57 Hydralazine Tab 50 Mg Tab PO 09/16/24 20:59 Not Given TID DOREEN Doxycycline Hyclate 100 mg/ 100 mls @ 50 mls/hr 08/22/24 18:30 08/26/24 08:58 Dextrose IV 08/31/24 18:29 Infused Q12H DOREEN Infusion Fentanyl Citrate 2,500 mcg in 250 mls @ 10 mls/hr 08/22/24 18:45 08/26/24 08:59 Fentanyl Citrate IV 09/05/24 18:44 0 mcg/hr .Q25H DOREEN 0 mls/hr Titration Protocol 100 MCG/HR Meropenem 500 mg/ Syringe 10 mls @ 2 mls/min 08/23/24 18:00 08/26/24 01:14 IV 08/28/24 17:59 2 mls/min Q8H DOREEN Administration Protocol Acetaminophen 1,000 mg in 100 mls @ 400 mls/hr 08/24/24 10:57 08/25/24 23:00 Ofirmev IV 08/27/24 10:56 Infused Q8H PRN Infusion fever Propofol 1,000 mg in 100 mls @ 12.39 mls/hr 08/24/24 18:15 08/26/24 07:55 Diprivan IV 08/27/24 18:14 0 mcg/kg/min .Q8H5M DOREEN 0 mls/hr Titration Protocol 35 MCG/KG/MIN Norepinephrine Bitartrate 4 mg in 250 mls @ 11.063 mls/hr 08/24/24 19:45 08/25/24 09:15 Levophed/D5w IV 09/23/24 19:44 Not Given .[id number] DOREEN Protocol 0.05 MCG/KG/MIN Pantoprazole Sodium 40 mg in 10 mls @ 5 mls/min 08/25/24 09:00 08/26/24 08:08 Protonix IV 09/24/24 08:59 5 mls/min BID DOREEN Administration Levetiracetam 500 mg 08/17/24 21:00 08/22/24 09:58 Levetiracetam 500 Mg Tab PO 09/16/24 20:59 500 mg BID DOREEN Administration Levetiracetam 500 mg 08/22/24 21:00 08/26/24 08:11 Levetiracetam 500 Mg/5 Ml Vial IV 09/21/24 20:59 500 mg Q12H DOREEN Administration Losartan Potassium 100 mg 08/18/24 09:00 08/23/24 08:58 Losartan Potassium 50 Mg Tab PO 09/17/24 08:59 Not Given DAILY DOREEN Protocol Magnesium Oxide 400 mg 08/18/24 09:00 08/26/24 08:12 Magnesium Oxide 400 Mg Tab PO 09/17/24 08:59 400 mg QAM DOREEN Administration Oseltamivir Phosphate 30 mg 08/24/24 21:00 08/26/24 08:08 Oseltamivir Phosphate Susp 30 Mg/5 Ml Udp PO 08/29/24 20:59 30 mg BID DOREEN Administration Protocol Polyethylene Glycol 17 gm 08/22/24 09:00 08/26/24 08:12 Polyethylene (Miralax) 17 Gm Pack PO 09/21/24 08:59 17 gm DAILY DOREEN Administration Senna/Docusate Sodium 1 tab 08/21/24 17:00 08/26/24 08:12 Docusate Sodium/Senna 50/8.6mg Tab PO 09/20/24 16:59 1 tab QAM DOREEN Administration Sterile Water 30 ml 08/25/24 14:30 08/26/24 06:44 Tube Feeding Water Flush OG 09/24/24 14:29 30 ml Q4H DOREEN Administration
--- NOTE | 2024-08-26 09:50 | Billing Data ---
Date of Service August 26, 2024 Coding Level of Care Code 89551 CRITICAL CARE
[2024-08-26 10:21] LABS: Albumin Level 2.8 gm/dl (3.4-5.0); Bilirubin Direct 0.1 mg/dl (0-0.2); Bilirubin,Total 0.4 mg/dl (0.2-1.0); Total Protein 5.7 gm/dl (6.0-8.3)
--- NOTE | 2024-08-26 10:25 | XRay Report ---
XR chest 1V portable CLINICAL HISTORY: intubation TECHNIQUE: Single frontal radiograph of the chest was obtained. Comparison: Comparison is made to chest radiograph 08/25/2024 FINDINGS: Lines and tubes are stable. Cardiomegaly is noted. The aortic arch is calcified. Bilateral lower lung predominant airspace opacities are seen. Trace right pleural effusion is again seen. IMPRESSION: 1. Stable satisfactory appearance of lines and tubes. 2. Bilateral pleural effusions and airspace opacities are seen. ACT 112: Negative or not required by law. Electronically signed by: Gagandeep Fernandez M.D. 08/26/2024 10:23 AM
[2024-08-26] MEDS: PEPTAMEN INTENSE VHP 1.0 CAL 1,000 ML BAG OG SCH (21:59)
--- NOTE | 2024-08-26 22:48 | Hospitalist Progress Note ---
Date of Service August 26, 2024 Assessment & Plan (1) Acute hypoxemic respiratory failure: Plan: This pt is a 74 yo female with a h/o ischemic CVA with hemorrhagic conversion s/p TNK, spontaneous ICH, HTN, PAF with pacer, DMII, muscular dystrophy, SIADH,who p/w worsening SOB and hypoxia. Found to be hypoxic on arrival and CT chest showed PNA. Initial BioFire neg for Influenza and everything else. #Pneumonia/Influenza A/ Acute respiratory failure with hypoxia---> 2/2 pneumonia and some component of acute on chronic HFpEF-with increasing BNP and CT with possible pulmonary edema. Procal negative on admission Pneumonia worse on CT from admission 08/[address] from 08/15 as an outpatient with increasing nodular opacities Consult pulmonology appreciated-added Cefepime and steroids Allergies and prolonged QT prevented addition of atypical coverage although her bio fire is negative for mycoplasma, Legionella urine antigen negative Appreciate ID consult-initially recommended continue cefepime only for now and if worsens or decompensates, consider bronchoscopy and adding Flagyl versus switching to meropenem. Could also consider desensitization to doxycycline if concern for atypical pneumonia. However, with worsening confusion on 08/20, switched cefepime to meropenem 08/22 developed fever, worsening hypoxia requiring 6LNC, became obtunded with ABG c/w acute resp alkalosis from sepsis. Repeat CXR shows worsening multifocal PNA. CT A/P with nodular infiltrates at lung bases but otherwise no acute issues. CT head with maxillary sinusitis. UA neg for infection. Procal neg. Biofire now POSITIVE for Influenza A ABG c/w acute respiratory alkalosis. SHe was intubated on 08/22 for being obtunded with severe encephalopathy. Had LP with no evidence of meningitis Bronchoscopy 08/23 showed multilobar PNA, BALs collected from bilateral lower lobes, no diffuse hemorrhage -still intubated 08/25 -likely 2nd to influenza A -Plan for terminal extubation on 08/27 -Continue meropenem and doxycycline for possible superimposed bacterial PNA -Continue bronchodilator nebs, continue inhaled fluticasone, umeclidinium/vilanterol -follow up bronchoscopy culture results, still pending -critical care following (2) Pneumonia: Plan: With increasing nodular opacities and groundglass opacities diffusely on CT, treatment noted as above -on Meropenem and doxycycline extend to 10 days D/W academic administrator (3) Influenza: Plan: no Tamiflu to be given due to case reports of prolonged QT (4) Acute encephalopathy: Plan: Patient with worsening confusion since hospitalization as per family members. She does have baseline moderate expressive aphasia and some cognitive deficits. She did have a fall in the a.m. of 08/20-repeat head CT negative for hemorrhage, no new focal neuro deficits Cefepime switched to meropenem in case cefepime causing worsening delirium She has not moved her bowels in at least 5 days-added on bisacodyl as needed, added on Senokot On the morning of 08/21 patient was even more lethargic and confused-repeat head CT again performed due to head trauma the day before and history of intracranial hemorrhage-negative 08/22 became obtunded as above, repeat CT head neg for acute. With Influenza A + most likely cause of delirium Continue supportive care, promote good sleep-wake cycles once off sedation Continue treating infection of pneumonia and influenza Continue supplemental O2 to keep pulse ox greater than 90%-currently on vent Encephalopathy likely 2nd to Influenza A (5) Fall: Plan: Got out of bed on her own on 08/20 a.m. and fell and struck her head on the metal register as witnessed by environmental services Has a very minor abrasion on left upper back otherwise no injuries CT head negative PT/OT evaluation once condition improves. (6) UTI (urinary tract infection): Plan: Likely asymptomatic bacteriuria- urine culture with Enterococcus faecalis and Pseudomonas aeruginosa Discussed with ID-treating anyway with meropenem -con't meropenum (7) Iron deficiency anemia: Plan: Hemoglobin 9.3-9.9, iron studies show transferrin saturation very low at 5% B12 and folate normal Started oral iron supplement Does have hematuria microscopic-follow as an outpatient Consider GI workup if not done recently Heme is now 7.9 (8) Acute heart failure with preserved ejection fraction: Plan: Could possibly be due to previous salt tablets No significant leg edema to suggest right sided heart failure Echo from outpatient in 07/2024 shows EF 60-64%, moderate LVH, small posterior loculated pericardial effusion without tamponade Repeat echo here with preserved EF, no significant valvular disease UA with only trace protein, no prior liver problems and LFTs normal Diuresed over 3 L net negative. Converted IV Lasix to p.o. 20 mg daily on 08/19 but now on hold while NPO on vent Strict I&Os, daily weights, low-sodium diet Plan #Prolonged QT interval-QT difficult to interpret on EKG here even on repeat on 08/18 which shows paced rhythm atrial flutter. Appreciate cardiology consultation-historically when in sinus rhythm, she also had prolonged QT, hence they recommend avoiding QT prolonging agents #HTN -BPs normal, continue hydralazine, losartan, and Lasix, but discontinued Toprol-XL #pAfib/flutter- presence of Watchman hence no anticoagulation, permanent, appreciate cardiology consultation discontinue Toprol-XL due to shortness of breath #Hyponatremia-sodium 130 on arrival and now improved to 139 with diuresis-follow BMP #JG - CPAP HS once off vent #Recent hemorrhagic stroke-has repeat head CT as an outpatient scheduled for 09/05, follows with neurology. Repeat head CT here after fall in 08/20 and again on 08/21 negative for acute VTE Prophylaxis - SCDs, deferred chemical due to recent bloody LP Acute respiratory failure requiring intubation 2nd to Influenza A with multilobar PNA, s/p bronchoscopy on 08/23 Encephalopathy 2nd to influenza A Disposition -continued stay in ICU Critical care following Admission and Anticipated Discharge Date Admission Date: August 17, 2024 Subjective Patient is intubated. Physical Exam Physical Exam: Patient is intubated. Heart: RRR lungs: vent settings reviewed during rounds Abd: ND, soft extremities: no edema. Results & Data Results & Data Vital Signs (Past 12 Hours) Vital Signs Temp Pulse Resp BP Pulse Ox FiO2 08/26/24 19:45 80 25 H 100 30 08/26/24 19:30 125/64 08/26/24 19:27 36.9 C 80 22 98 08/26/24 19:00 124/65 08/26/24 19:00 124/65 08/26/24 18:42 36.9 C 80 20 98 08/26/24 18:16 80 08/26/24 18:09 36.9 C 80 21 98 08/26/24 17:30 114/61 08/26/24 17:30 114/61 08/26/24 17:27 36.8 C 80 20 99 08/26/24 17:09 36.8 C 80 21 99 08/26/24 16:30 36.9 C 80 20 97 08/26/24 16:30 108/57 L 08/26/24 16:30 108/57 L 08/26/24 16:30 108/57 L 08/26/24 16:00 122/62 08/26/24 16:00 36.9 C 80 20 97 08/26/24 16:00 40 08/26/24 15:45 80 22 97 40 08/26/24 15:30 101/53 L 08/26/24 15:30 101/53 L 08/26/24 15:30 101/53 L 08/26/24 15:21 36.9 C 80 20 96 08/26/24 15:00 36.9 C 80 21 96 08/26/24 15:00 100/53 L 08/26/24 14:38 92/48 L 08/26/24 14:38 92/48 L 08/26/24 14:38 92/48 L 08/26/24 14:33 37.0 C 80 21 95 08/26/24 14:30 37.0 C 80 20 95 08/26/24 14:30 95/49 L 08/26/24 14:30 95/49 L 08/26/24 14:30 95/49 L 08/26/24 14:30 95/49 L 08/26/24 14:30 95/49 L 08/26/24 14:06 37.0 C 80 20 96 08/26/24 14:00 95/51 L 08/26/24 14:00 95/51 L 08/26/24 13:54 37.1 C 80 21 95 08/26/24 13:03 37.2 C 80 18 98 08/26/24 13:00 139/65 08/26/24 13:00 139/65 08/26/24 12:57 37.1 C 80 22 97 08/26/24 12:30 37.5 C 80 17 96 08/26/24 12:30 134/66 08/26/24 12:30 134/66 08/26/24 12:00 37.6 C H 80 22 95 08/26/24 12:00 137/61 08/26/24 12:00 137/61 08/26/24 12:00 40 08/26/24 11:30 132/60 08/26/24 11:30 132/60 08/26/24 11:21 38.0 C H 80 20 94 08/26/24 11:12 38.0 C H 80 18 96 PG Care Time/CCT Total # of Minutes Spent Total Time Spent with Patient: Total time spent is greater than 50% in coordination of care (as documented) at patient's floor/unit and/or counseling patient: Coding Level of Care Code 76649 SUB INP/OBS CARE 3/50MIN Diagnoses Acute hypoxemic respiratory failure J96.01 Pneumonia J18.9 Influenza J11.1 Acute encephalopathy G93.40 Fall, initial encounter W19.XXXA Encounter type: initial encounter Urinary tract infection without hematuria, site unspecified N39.0 Hematuria presence: without hematuria Urinary tract infection type: site unspecified Iron deficiency anemia D50.9 Acute heart failure with preserved ejection fraction I50.31 (5) Fall Encounter type: initial encounter Qualified Code(s): W19.XXXA - Unspecified fall, initial encounter (6) UTI (urinary tract infection) Hematuria presence: without hematuria Urinary tract infection type: site unspecified Qualified Code(s): N39.0 - Urinary tract infection, site not specified
[2024-08-27 04:51] LABS: Basophils # (auto) 0.01 K/uL (0.00-0.20); Basophils % (auto) 0.2 %; Eosinophils # (auto) 0.16 K/uL (0.00-0.50); Eosinophils % (auto) 2.9 %; Hematocrit (blood only) 22.7 % (37.0-47.0); Hemoglobin 7.1 g/dl (12.0-16.0); Immature Granulocytes % (auto) 1.8 %; Lymphocytes % (auto) 17.9 %; Mean Corpuscular Hemoglobin 26.3 pg (25.0-34.0); Mean Corpuscular Hgb Conc 31.3 g/dL (32.0-36.0); Mean Corpuscular Volume 84.1 fL (80.0-100.0); Mean Platelet Volume 10.1 fL (9.4-12.4); Monocytes # (auto) 0.19 K/uL (0.11-0.59); Monocytes % (auto) 3.4 %; Neutrophils # (auto) 4.12 K/uL (1.40-6.50); Neutrophils % (auto) 73.8 %; Platelet Count 244 K/uL (130-400); RDW Coefficient of Variation 14.7 % (11.5-14.5); RDW Standard Deviation 45.2 fL (36.4-46.3); White Blood Count 5.58 K/ul (4.8-10.8)
[2024-08-27 05:07] LABS: BUN Creatinine Ratio 64.9 (10-20); Calcium 9.4 mg/dl (8.6-10.3); Creatinine Clr Calc Pharmacy 74.8 ml/min; Magnesium 1.5 mg/dl (1.7-2.4); Potassium 4.2 mmol/L (3.5-5.1)
[2024-08-27 05:16] LABS: Polychromasia 1+
[2024-08-27] MEDS: MAGNESIUM SULFATE / D5W 1 GM/100 ML BAG IV SCH (06:32)
--- NOTE | 2024-08-27 07:19 | Critical Care Progress Note ---
Date of Service August 27, 2024 Assessment & Plan (1) Acute hypoxemic respiratory failure: (2) Pneumonia: (3) Influenza: (4) Acute encephalopathy: (5) Fall: (6) UTI (urinary tract infection): (7) Iron deficiency anemia: (8) Acute heart failure with preserved ejection fraction: Plan Reason Critically Ill: Acute respiratory failure requiring intubation 2/2 to Influenza A with multilobar pneumonia and recent decrease in mental status prompting ICU admission PLAN: Neuro: Encephalopathy: Likely multifactorial to include prior CVAs and sepsis -Expressive aphasia at baseline -Lives at home with - slight improvement in alertness, likely 2/2 weaning sedation per plan to extubate, still unable to gauge orientation, recheck tomorrow - PT/OT tomorrow 08/28/24 Resp: Acute hypoxic respiratory failure in the setting of influenza A -Last ventilator setting FiO2 30%, terminal extubation this morning 08/27/24 with family present - > oxymask at 4L/min satting mid 90s -Continue bronchodilator nebs, inhaled fluticasone, umeclidinium/vilanterol - bronch culture results negative for growth - JG, CPAP HS once off ventilator CV: recent elevation of BP: 140-180 / 70- low 100s -> started on Hydralazine 10mg IV q4 prn for SBP >180, DBP >90 - also has metoprolol 5mg IV q6 on board as she has metoprolol succinate 50mg PO as a home med, consider resuming ARB tomorrow if BP remains elevated Prolonged QTc on EKG - potassium resolved - avoid QT-prolonging drugs when possible Fluids/Renal: 20 mg IV Lasix given on 08/25/24 but has been discontinued, reconsider upon reassessment of fluid status - electrolytes grossly resolved - eGFR improving, creatinine resolved - BMP in AM - magnesium repletion ordered, mag level in AM ID: Influenza A -Tamiflu high dose, watch for prolonged QTc Possible secondary bacterial infection: Meropenem and doxycycline day 9 today, extend to day 10 -Infectious diseases reconsulted: recommended to continue meropenem, doxy, and tamiflu for the time being; pharmacy increasing meropenem and tamiflu as creatinine has sufficiently decreased - pending less common pulmonary infectious etiologies Simple urinary tract infection: Treating a E faecalis and Pseudomonas urinary tract infection for 7 days GI/Nutrition: Protonix IV for GI prophylaxis - Tube feeds initiated 08/25/24, continue while NPO - LFTs unremarkable, abdominal exam unremarkable - On bowel regimen, last BM on 08/22/24 Heme: Anemia: NOS likely multifactorial initial anemia was diagnosed back in June 2024 - hemoglobin 7.6 -> 7.9 -> 7.4 ->7.1 -> transfused 1U PRBC today, 08/27/24 - CBC in AM DVT prophylaxis: Lovenox Endocrine: ICU hyperglycemia protocol Vascular access: Right IJ CVC placed 08/24 Code Status: DNR/DNI Disposition: ICU VTE Prophylaxis - on lovenox Admission and Anticipated Discharge Date Admission Date: August 17, 2024 Supervising Physician Co-Signing Physician Notes Dr. Thomas was resident physician during care of patient. I separately evaluated patient for angel portions of the history and the exam. I was present during the critical portion of medical decision making, and I discussed the case with the resident. I generally agree with the findings and plan. Discussed with family members present at bedside. Clinically patient appears relatively the same as yesterday. Spontaneous breathing trial parameters adequate, no significant secretion clearance requirements. Discussed benefits of proceeding with extubation versus waiting additional day, all in agreement we would likely not see significant improvement waiting an additional day. Will proceed with extubation. Then patient will be DNR/DNI in event of cardiac arrest and DNI in event of respiratory insufficiency. Accordingly I do not believe there would be significant therapeutic benefit should the patient decompensate and require noninvasive chemical ventilation given its short-term nature and the patient's pre-existing neurodeficits from prior hemorrhagic CVAs. Patient was liberated from the ventilator. Requiring oxime mask. If patient decompensates would transition to comfort measures for air hunger, no intubation in event of respiratory insufficiency. Close observation, patient remains crit ically ill. H&H downtrending, suspect this anemia is secondary to anemia of chronic disease bone marrow suppression underlying disease process, wears oxygen at baseline will give 1 unit packed red blood cells to increase oxygen carrying capacity. Jame Santos was seen and evaluated at bedside this AM, intubated and sedated but being prepared for removal of ET tube. She was appearing slightly more alert than day prior, with eyes slightly more open at baseline. Still not answering questions or following simple commands. Family present in the room at time of evaluation, on board with terminal extubation. signed consent for blood transfusion, verbalized understanding of risks and benefits. Physical Exam Physical Exam: General: Sedated, nontoxic in appearance, improvement in alertness compared to day prior, still unable to gauge orientation. Skin: b/l hands slightly cool to touch, 1+ pitting edema b/l hands, areas of ecchymosis R>L dorsal hands Head: NC/AT Eyes: pupils mildly constricted b/l, slight further constriction upon shining pen light, unable to assess EOM Ears, nose, mouth and throat: airway obscured by endotracheal tube, oral mucus membranes appearing dry Cardiovascular: RRR, no murmurs/rubs/gallops heard on auscultation; 2+ radial pulses, 2+ dorsalis pedis pulses, no cyanosis/clubbing seen Respiratory: mechanical ventilation, lungs clear to auscultation b/l, no wheezes/rales/rhonchi heard on auscultation - ventilator settings reviewed- FiO2 30% Gastrointestinal: Non distended, +BS, nontender to palpation based on lack of patient response though may be blunted by sedation, no ecchymoses seen, negative beltrán's sign, no hepatosplenomegaly observed Musculoskeletal: b/l LE SCDs in place, no gross deformity of extremities Results & Data Results & Data Vital Signs (Past 12 Hours) Vital Signs Temp Pulse Resp BP Pulse Ox O2 Del Method FiO2 08/27/24 06:30 120/60 08/27/24 06:30 120/60 08/27/24 06:30 120/60 08/27/24 06:30 120/60 08/27/24 06:30 120/60 08/27/24 06:30 37.5 C 80 23 93 08/27/24 06:03 37.6 C H 80 19 94 08/27/24 06:00 124/61 08/27/24 05:51 37.6 C H 80 20 92 08/27/24 05:30 37.7 C H 80 22 92 08/27/24 05:30 127/64 08/27/24 05:06 37.7 C H 80 21 92 08/27/24 05:00 149/70 H 08/27/24 04:57 37.7 C H 80 19 92 08/27/24 04:30 157/77 H 08/27/24 04:30 157/77 H 08/27/24 04:21 37.7 C H 80 19 93 08/27/24 04:06 37.6 C H 80 24 95 08/27/24 04:00 158/76 H 08/27/24 04:00 30 08/27/24 03:45 80 24 93 30 08/27/24 03:39 37.6 C H 80 22 94 08/27/24 03:30 149/72 H 08/27/24 03:30 149/72 H 08/27/24 03:18 37.6 C H 80 23 91 08/27/24 03:00 124/62 08/27/24 03:00 37.6 C H 80 22 91 08/27/24 02:30 134/64 08/27/24 02:30 134/64 08/27/24 02:21 37.5 C 80 17 92 08/27/24 02:00 37.3 C 80 22 91 08/27/24 02:00 149/77 H 08/27/24 01:30 160/75 H 08/27/24 01:30 37.2 C 80 18 91 08/27/24 01:00 37.2 C 80 18 92 08/27/24 01:00 153/73 H 08/27/24 01:00 153/73 H 08/27/24 00:39 37.1 C 80 18 91 08/27/24 00:00 144/72 H 08/27/24 00:00 30 08/27/24 00:00 80 08/26/24 23:57 37.0 C 80 20 92 08/26/24 23:42 37.0 C 80 18 92 08/26/24 23:30 148/67 H 08/26/24 23:24 36.9 C 80 20 92 08/26/24 23:12 37.2 C 80 20 93 08/26/24 23:00 80 26 H 92 30 08/26/24 23:00 112/58 L 08/26/24 22:54 37.1 C 80 23 93 08/26/24 22:30 37.1 C 80 20 94 08/26/24 22:30 112/59 L 08/26/24 22:30 112/59 L 08/26/24 22:30 112/59 L 01/21/25 22:15 37.1 C 80 21 94 08/26/24 21:30 113/58 L 08/26/24 21:24 37.1 C 80 21 92 08/26/24 21:00 121/62 08/26/24 21:00 121/62 08/26/24 21:00 121/62 08/26/24 21:00 37.0 C 80 20 92 08/26/24 20:30 36.9 C 80 18 93 08/26/24 20:30 132/74 08/26/24 20:30 132/74 08/26/24 20:00 146/79 H 08/26/24 20:00 146/79 H 08/26/24 20:00 36.8 C 80 19 99 08/26/24 20:00 30 08/26/24 20:00 Mechanical Vent 30 08/26/24 19:45 80 25 H 100 30 08/26/24 19:30 125/64 08/26/24 19:27 36.9 C 80 22 98 Critical Care Time I have personally spent 55 minutes of critical care time in the direct management of this patient. This is a life/limb threatening event. This includes time spent evaluating patient, direct bedside care, chart review, placing orders, interpretation of diagnostic studies, discussion with consultants, patient, and/or family members regarding treatment decisions, as well as other required patient management activities. This time is exclusive of all separately billable procedures, and teaching time and separate from and in addition to any other critical care service time. Resident Activity Tracking Resident Involvement: Resident Care Provided Care Provided: Adult Hospital Medicine (5) Fall Encounter type: initial encounter Qualified Code(s): W19.XXXA - Unspecified fall, initial encounter (6) UTI (urinary tract infection) Hematuria presence: without hematuria Urinary tract infection type: site unspecified Qualified Code(s): N39.0 - Urinary tract infection, site not specified
--- NOTE | 2024-08-27 08:32 | XRay Report ---
EXAM: XR chest 1V portable CLINICAL HISTORY: INTUBATION TECHNIQUE: An X-ray image of the chest is obtained in 1 AP projection. COMPARISON: Prior study dated 08/25/2024. FINDINGS: ETT with tip 4.4 cm above ángela (satisfactory). Stable Right CVL and NG tube in situ. Left side ICD device Pulmonary Parenchyma: Prominent bilateral alveolar opacities involving bilateral middle and right lower lung zone Left lower lung zone and costophrenic angle obscured by cardiac shadow. No evidence of right pleural effusion or pleural thickening. Heart and Mediastinum: Cardiomegaly with dilated unfolded aorta and calcific atherosclerotic plaques. No mediastinal widening or masses. No hilar or mediastinal lymphadenopathy. Bony Thorax: Bony thorax appears intact without fractures or deformities. Soft Tissues: Soft tissues overlying the chest wall are unremarkable. IMPRESSION: 1. ETT with tip 4.4 cm above ángela (satisfactory). 2. Stable Right CVL and NG tube in situ. 3. Left side ICD device. 4. Prominent bilateral alveolar opacities involving bilateral middle and right lower lung zone. 5. Cardiomegaly with dilated unfolded aorta and calcific atherosclerotic plaques. 6. No significant time interval changes. Electronically signed by Yas Jenkins 08-27-2024 08:32 AM
--- NOTE | 2024-08-27 10:04 | Billing Data ---
Date of Service August 27, 2024 Coding Level of Care Code 99611 CRITICAL CARE
[2024-08-27] MEDS: METOPROLOL TARTRATE 1 MG/ML VIAL IV ONE (10:45)
[2024-08-27] MEDS: METOPROLOL TARTRATE 1 MG/ML VIAL IV STA ×2 (10:56→13:15)
[2024-08-27] MEDS ORDERED: Nursing to Pharmacy Communication SCH (11:15)
[2024-08-27] MEDS ORDERED: SODIUM CHLORIDE 0.9% 50 ML IV PRN ×2 (11:16→13:57)
[2024-08-27] MEDS ORDERED: SODIUM CHLORIDE 0.9% 100 ML IV PRN ×2 (11:16→13:57)
[2024-08-27] MEDS: hydrALAZINE HCL 20 MG/ML VIAL ONE (15:02)
[2024-08-27] MEDS: hydrALAZINE HCL 20 MG/ML VIAL IV ONE (15:06)
[2024-08-27 15:32] LABS: Babesia microti DNA Not Detected (Not Detected)
--- NOTE | 2024-08-27 15:38 | Infectious Disease Progress Nt ---
Date of Service August 27, 2024 Assessment & Plan (1) Prolonged QT interval: (2) Pneumonia: Plan This is a 74-year-old female with a past medical history of myotonic dystrophy, atrial fibrillation, CVAs, hypertension, emphysematous lung disease, neuromuscular weakness who presents to the ED with shortness of breath and hypoxia. She is on oxygen at home as needed. She denies any fevers, chills, nausea, vomiting. Denies any aspiration events. Sats at home were in the 70s. In the ED temperature 36.4, pulse 90, RR 34, blood pressure 170/96, O2 sat 78% on room air-->95% on 5l . Labs: WBC 8.46, hemoglobin 10.9, hematocrit 33.7, platelets 389, BUN 18, creatinine 0.77. Respiratory viral panel negative. Urine Legionella antigen negative, MRSA screen negative.. Procalcitonin 0.06. CTA chest with no pulmonary embolism; + groundglass opacities and nodular densities which may represent infectious/inflammatory airway disease. Repeat imaging shows multifocal patchy areas of groundglass and a few regions of nodular opacities most consistent with an atypical infectious process. Findings were increased from 05/2025. There is mild superimposed interstitial pulmonary edema. Chest x-ray shows no glass infiltrate on the right base concerning for pneumonia which could be infectious or related to aspiration. There is acute on chronic interstitial changes ; c/f pulmonary edema or infectious pneumonitis. TTE with trace pericardial effusion. She was started on cefepime 08/18. ID consulted for possible atypical pneumonia as patient is unable to receive azithromycin and doxycycline. Per her chart, she has documented allergies listed: Itching/yeast infections with moxifloxacin, itching with tetracyclines, rash with penicillins, anaphylaxis with sulfa. When asked if she remembers exactly what occurs when she received these antibiotics, she does not remember. She is not certain if these allergies are accurate. An EKG shows an prolonged QTc; 604 on 08/18 and 523 on 08/17. Pulmonology is following: Initially there were no plans for bronchoscopy given underlying comorbidities. Micro UCx 08/17 >100K E faecalis ( amp S), Pseudomonas Aer Blood culture 08/22 staph epi and 2 out of 4 bottles CSF culture 08/22 no growth Bronc culture 08/22 many polys on Gram stain, no organisms, no growth: Scant normal graham, no yeast or hyphae seen Legionella culture 08/22 pending Legionella species 08/23 PCR pending Pneumocystis jirovecii/ PCR pending Abx Cefepime 08/18-08/20 Meropenem 08/20- ongoing Acyclovir 08/22 vanco 08/22 Tamiflu 08/24-ongoing Doxycycline 08/22- ongoing # Acute hypoxic respiratory failure # Pneumonia vs Pneumonitis # Staph epi bacteremia, likely contaminant #Influenza A infection # Abx allergies - PCN : rash -Tetracycline: itching -Moxifloxacin: itching -Sulfa- swelling # Prolonged QTC # Myotonic dystrophy #PPM in place #Asymptomatic bacteriuria Discussion- Procalcitonin on admission was low at 0.06 and she remained afebrile. It was initailly unclear if presentation was 2/2 pneumonia vs pneumonitis. There was c/f atypical infection and aspiration on imaging. Urine legionella ag negative. Mycoplasma pna and Chlamydia pna pcr negative ( on RVP). MRSA screen negative. She has documented allergies as per above, but she was not sure of the reactions. Recommended that if continued concern for atypical pneumonia, can consider desensitization to doxycycline but would hold azithromycin or fluoroquinolones for now as QTC is prolonged 08/20 Pseudomonas and Enterococcus faecals grew in urine. Asymptomatic for UTI. Fell over night now with increased confusion. There was concern for Cefepime effects, so discontinued Cefepime given increased confusion. Started Meropenem instead for PNA coverage. This will also cover E faecalis although no coverage needed with asymptomatic bacteriuria. 08/21 She was clinically improving and has less o2 requirements. Now on 3LNC (from 5L). No plans for bronch per pulm as clinically improving. ID recommended 7 days of antibiotics. 08/22 ID asked to reeval as she had fevers Tm 39, worsening respiratory status and worsening mental status. No mention of new rash or ulcer per d/w team. Changed Meropenem to [employer] dosing , added vanco and acyclovir pending LP although it was less likely that she developed a nosocomial [employer] infection. CT head with no acute pathology. CTAP showed. CTAB mild patchy bibasilar opacities in the lower lungs consistent with an atypical infectious process. No infectious process seen in the abdomen or pelvis. Intubated and mechanically vented. Procal 0.46. Doxycycline started. 08/26 long weekend events reviewed . CSF not c/w meningitis. CSF fluid with 0 WBC, 53 RBC, 87 glucose, 57 protein, meningitis encephalitis panel negative Repeat respiratory viral panel positive for influenza A (H3) on PCR. On tamiflu now. failed extubation on 08/24 and remains intubated. She underwent bronch on 08/23: There appeared to be bilateral friable tissue with thick white mucoid secretions emanating from all lobes . 08/27 Extubated on 4l NC hypertensive , Completed 5 d of tamiflu today Recommendations Continue Meropenem 500 mg q8h, IF crcl > 50, then 1 g IV q8 h Anticipate a total of 10-14 days based on clincal picture Continue doxycycline 100 mg Iv q12h . Duration depends of results of Legionella cx Follow up legionella culture, legionella pcr, aspergillus pcr and PJP pcr from 08/23 bronch ID will continue to follow. Efraín Toth MD, MPH Infectious Disease [facility], ID Division Call [phone] with questions. Admission and Anticipated Discharge Date Admission Date: August 17, 2024 Subjective This patient recommendation is based on a telemedicine consult request which was completed asynchronously through chart review and information provided by the primary physician. The patient was not seen or examined today. The evaluation is consultative in nature and all patient care and treatment decisions can either be accepted or rejected by the patient's primary hospital-based treating physician using their own independent medical judgment for their patient. Time Spent Reviewing Chart: 21 - 30 minutes Extubated Results & Data Vital Signs (Past 12 Hours) Vital Signs Temp Pulse Resp BP Pulse Ox O2 Del Method O2 Flow Rate 08/27/24 15:20 80 22 185/86 H 94 4 08/27/24 15:12 37.4 C 80 20 183/93 H 96 4 08/27/24 14:50 37.4 C 80 22 183/85 H 95 4 08/27/24 14:35 37.4 C 80 19 178/82 H 95 4 08/27/24 14:17 37.1 C 80 24 175/82 H 95 08/27/24 13:30 80 174/81 H 08/27/24 13:15 80 173/85 H 08/27/24 11:09 37.4 C 80 19 92 08/27/24 11:00 80 170/81 H 08/27/24 10:45 80 188/75 H 08/27/24 10:30 37.2 C 80 20 90 08/27/24 10:30 188/75 H 08/27/24 10:00 37.3 C 80 17 89 L 08/27/24 10:00 177/75 H 08/27/24 09:03 37.1 C 80 24 80 L 08/27/24 09:00 170/77 H 08/27/24 08:57 37.3 C 80 23 93 08/27/24 08:30 149/70 H 08/27/24 08:27 37.3 C 80 23 92 08/27/24 08:06 37.3 C 80 14 94 08/27/24 08:00 Mechanical Vent 08/27/24 08:00 08/27/24 07:40 92 H 21 94 08/27/24 07:35 80 26 H 92 08/27/24 07:30 149/69 H 08/27/24 07:09 37.4 C 80 21 92 08/27/24 07:00 37.5 C 80 19 92 08/27/24 07:00 158/72 H 08/27/24 06:30 120/60 08/27/24 06:30 120/60 08/27/24 06:30 120/60 08/27/24 06:30 120/60 08/27/24 06:30 120/60 08/27/24 06:30 37.5 C 80 23 93 08/27/24 06:03 37.6 C H 80 19 94 08/27/24 06:00 124/61 08/27/24 05:51 37.6 C H 80 20 92 08/27/24 05:30 37.7 C H 80 22 92 08/27/24 05:30 127/64 08/27/24 05:06 37.7 C H 80 21 92 08/27/24 05:00 149/70 H 08/27/24 04:57 37.7 C H 80 19 92 08/27/24 04:30 157/77 H 08/27/24 04:30 157/77 H 08/27/24 04:21 37.7 C H 80 19 93 08/27/24 04:06 37.6 C H 80 24 95 08/27/24 04:00 158/76 H 08/27/24 04:00 08/27/24 03:45 80 24 93 08/27/24 03:39 37.6 C H 80 22 94 FiO2 08/27/24 15:20 08/27/24 15:12 08/27/24 14:50 08/27/24 14:35 08/27/24 14:17 08/27/24 13:30 08/27/24 13:15 08/27/24 11:09 08/27/24 11:00 08/27/24 10:45 08/27/24 10:30 08/27/24 10:30 08/27/24 10:00 08/27/24 10:00 08/27/24 09:03 08/27/24 09:00 08/27/24 08:57 08/27/24 08:30 08/27/24 08:27 08/27/24 08:06 08/27/24 08:00 08/27/24 08:00 08/27/24 07:40 30 08/27/24 07:35 30 08/27/24 07:30 08/27/24 07:09 08/27/24 07:00 08/27/24 07:00 08/27/24 06:30 08/27/24 06:30 08/27/24 06:30 08/27/24 06:30 08/27/24 06:30 08/27/24 06:30 08/27/24 06:03 08/27/24 06:00 08/27/24 05:51 08/27/24 05:30 08/27/24 05:30 08/27/24 05:06 08/27/24 05:00 08/27/24 04:57 08/27/24 04:30 08/27/24 04:30 08/27/24 04:21 08/27/24 04:06 08/27/24 04:00 08/27/24 04:00 30 08/27/24 03:45 30 08/27/24 03:39 Laboratory Results Laboratory Results - last 48 hr 08/22/24 08/22/24 08/26/24 15:39 19:55 04:20 WBC 6.02 RBC 2.84 L Hgb 7.4 L Hct 24.2 L MCV 85.2 MCH 26.1 MCHC 30.6 L RDW Std Deviation 45.4 RDW Coeff of Lion 14.7 H Plt Count 233 MPV 10.2 Immature Gran % (Auto) 1.0 Neut % (Auto) 85.5 Lymph % (Auto) 9.5 Morris % (Auto) 2.0 Eos % (Auto) 1.8 Baso % (Auto) 0.2 Neut # (Auto) 5.15 Lymph # (Auto) 0.57 L Morris # (Auto) 0.12 Eos # (Auto) 0.11 Baso # (Auto) 0.01 Immature Gran # (Auto) 0.06 RBC Morphology Unremarkable Polychromasia Sodium 139 Potassium 4.4 D Chloride 104 Carbon Dioxide 32 Anion Gap 3 BUN 36 H Creatinine 0.76 Est Cr Clr Drug Dosing 56.1 eGFR 82.17 BUN/Creatinine Ratio 47.4 H Glucose 103 H Calcium 9.5 Magnesium 1.9 Total Bilirubin 0.4 Direct Bilirubin 0.1 AST 35 ALT 21 Alkaline Phosphatase 42 Total Protein 5.7 L Albumin 2.8 L Lipase 26 Levetiracetam 31.8 A. phagocytophilum DNA Negative Babesia microti DNA PCR Not Detected Blood Type Antibody Screen Crossmatch 08/27/24 08/27/24 04:23 12:46 WBC 5.58 RBC 2.70 L Hgb 7.1 L Hct 22.7 L MCV 84.1 MCH 26.3 MCHC 31.3 L RDW Std Deviation 45.2 RDW Coeff of Lion 14.7 H Plt Count 244 MPV 10.1 Immature Gran % (Auto) 1.8 Neut % (Auto) 73.8 Lymph % (Auto) 17.9 Morris % (Auto) 3.4 Eos % (Auto) 2.9 Baso % (Auto) 0.2 Neut # (Auto) 4.12 Lymph # (Auto) 1.00 L Morris # (Auto) 0.19 Eos # (Auto) 0.16 Baso # (Auto) 0.01 Immature Gran # (Auto) 0.10 RBC Morphology Polychromasia 1+ Sodium 136 Potassium 4.2 Chloride 101 Carbon Dioxide 32 Anion Gap 3 BUN 37 H Creatinine 0.57 L Est Cr Clr Drug Dosing 74.8 eGFR 95.30 BUN/Creatinine Ratio 64.9 H Glucose 100 H Calcium 9.4 Magnesium 1.5 L Total Bilirubin Direct Bilirubin AST ALT Alkaline Phosphatase Total Protein Albumin Lipase Levetiracetam A. phagocytophilum DNA Babesia microti DNA PCR Blood Type O Positive Antibody Screen NEGATIVE Crossmatch See Detail Diagnostic Findings Microbiology 08/23/24 11:00 Bronch Wash, Trach Tree Fungal Smear - Final 08/23/24 11:00 Bronch Wash, Trach Tree Fungal Culture - Preliminary No yeast or fungus isolated - Report 1, Additional Report to Follow. 08/23/24 11:00 Bronch Wash, Trach Tree Gram Stain - Final 08/23/24 11:00 Bronch Wash, Trach Tree Bronchial Culture - Final Scant normal graham. 08/22/24 22:30 Sputum, Expectorated Gram Stain - Final 08/22/24 22:30 Sputum, Expectorated Sputum Culture - Final Light normal graham. 08/22/24 15:39 Blood Aerobic Blood Culture - Preliminary Staphylococcus epidermidis 08/22/24 15:39 Blood Anaerobic Blood Culture - Preliminary Staphylococcus epidermidis 08/22/24 16:00 Blood Aerobic Blood Culture - Preliminary No growth in Aerobic bottle after 48 hours. 08/22/24 16:00 Blood Anaerobic Blood Culture - Final 08/23/24 11:00 Bronch Wash, Trach Tree Acid Fast Bacilli Smear - Final 08/22/24 19:00 Cerebral Spinal Fluid Gram Stain - Final 08/22/24 19:00 Cerebral Spinal Fluid CSF Culture - Final No growth 08/17/24 18:12 Urine,Straight Cath Urine Culture - Final Enterococcus faecalis Pseudomonas aeruginosa Chest X-Ray 08/24/24 17:24 EXAM: Radiograph of the Chest 1 View INDICATION: Intubation. TECHNIQUE: Frontal view of the chest. Image obtained at 5:59 PM. COMPARISON: 7:20 AM the same day FINDINGS: Lungs and pleural spaces: Worsening interstitial thickening and increased patchy bilateral basilar infiltrates. New small bilateral pleural effusions present. No evident pneumothorax. Impression . Heart: Stable large cardiac shadow. Mediastinum: Normal contour. Bones/joints: No fracture, erosion or dislocation. Soft tissues: No abnormality noted. No radiopaque foreign body noted. Tubes, lines and devices: The endotracheal tube terminates 4.3 cm above the ángela. Nasogastric tube tip in the gastric fundus. Right internal jugular catheter terminates at the cavoatrial junction. Upper abdomen: No abnormality noted. IMPRESSION: 1. Worsening CHF and/or pneumonia 2. Lines and tubes as above. ACT 112: Negative or not required by law. Electronically signed by Britany Joseph 08-24-2024 6:13 PM Chest X-Ray 08/25/24 06:00 EXAM: XR chest 1V portable CLINICAL HISTORY: While intubated, eval tubes, lines, lung kinsey TECHNIQUE: An X-ray image of the chest is obtained in AP projection. COMPARISON: 08/24/2024 FINDINGS: ETT with tip 5.4 cm above ángela (satisfactory). Right CVL and NG tube in situ. Left side cardiac pacemaker. Pulmonary Parenchyma: Mild interval increase in air space opacities in right lower zone. Stable prominent markings in bilateral lungs. No evidence of pleural effusion or pleural thickening. Heart and Mediastinum: Cardiomegaly. No mediastinal widening or masses. No hilar or mediastinal lymphadenopathy. Bony Thorax: Bony thorax appears intact without fractures or deformities. Soft Tissues: Soft tissues overlying the chest wall are unremarkable. IMPRESSION: 1. ETT with tip 5.4 cm above ángela (satisfactory). 2. Right CVL and NG tube in situ. 3. Left side cardiac pacemaker. 4. Mild interval increase in air space opacities in right lower zone. 5. Stable prominent markings in bilateral lungs. 6. Cardiomegaly. Electronically signed by Yas Jenkins 08-25-2024 08:43 AM Chest X-Ray 08/26/24 09:50 XR chest 1V portable CLINICAL HISTORY: intubation TECHNIQUE: Single frontal radiograph of the chest was obtained. Comparison: Comparison is made to chest radiograph 08/25/2024 FINDINGS: Lines and tubes are stable. Cardiomegaly is noted. The aortic arch is calcified. Bilateral lower lung predominant airspace opacities are seen. Trace right pleural effusion is again seen. IMPRESSION: 1. Stable satisfactory appearance of lines and tubes. 2. Bilateral pleural effusions and airspace opacities are seen. ACT 112: Negative or not required by law. Electronically signed by: Gagandeep Fernandez M.D. 08/26/2024 10:23 AM Chest X-Ray 08/27/24 06:00 EXAM: XR chest 1V portable CLINICAL HISTORY: INTUBATION TECHNIQUE: An X-ray image of the chest is obtained in 1 AP projection. COMPARISON: Prior study dated 08/25/2024. FINDINGS: ETT with tip 4.4 cm above ángela (satisfactory). Stable Right CVL and NG tube in situ. Left side ICD device Pulmonary Parenchyma: Prominent bilateral alveolar opacities involving bilateral middle and right lower lung zone Left lower lung zone and costophrenic angle obscured by cardiac shadow. No evidence of right pleural effusion or pleural thickening. Heart and Mediastinum: Cardiomegaly with dilated unfolded aorta and calcific atherosclerotic plaques. No mediastinal widening or masses. No hilar or mediastinal lymphadenopathy. Bony Thorax: Bony thorax appears intact without fractures or deformities. Soft Tissues: Soft tissues overlying the chest wall are unremarkable. IMPRESSION: 1. ETT with tip 4.4 cm above ángela (satisfactory). 2. Stable Right CVL and NG tube in situ. 3. Left side ICD device. 4. Prominent bilateral alveolar opacities involving bilateral middle and right lower lung zone. 5. Cardiomegaly with dilated unfolded aorta and calcific atherosclerotic plaques. 6. No significant time interval changes. Electronically signed by Yas Jenkins 08-27-2024 08:32 AM Medications Administered Home Medications Medication Instructions Recorded Confirmed Last Taken fluticasone propionate 50 2 spray intranasal DAILY PRN 04/13/22 08/17/24 03/05/24 mcg/actuation nasal Allergy Symptoms spray,suspension (Flonase Allergy Relief) albuterol sulfate 90 mcg/actuation 2 puff inhalation Q4H PRN 10/25/22 08/17/24 Unknown aerosol inhaler (Ventolin HFA) Shortness Of Breath #3 Inhalers fluticasone fur. 100 mcg-umeclid 1 inh inhalation DAILY #3 Inhalers 12/25/23 08/17/24 04/26/24 62.5 mcg-vilant 25 mcg inhalat.powder (Trelegy Ellipta) aspirin 81 mg chewable tablet 81 mg PO DAILY 02/07/24 08/17/24 04/26/24 levetiracetam 500 mg tablet 500 mg PO BID 02/07/24 08/17/24 04/26/24 (Keppra) multivitamin 1 tab PO DAILY 02/07/24 08/17/24 04/26/24 folic acid 1 mg tablet 1 mg PO BID 04/26/24 08/17/24 04/26/24 hydralazine 50 mg tablet 100 mg (2 x 50 mg) PO TID #90 tabs 05/21/24 08/17/24 Unknown cholecalciferol (vitamin D3) 50 50 mcg PO DAILY 06/29/24 08/17/24 Unknown mcg (2,000 unit) capsule magnesium oxide 400 mg (241.3 mg 400 mg PO QAM #0 tabs 07/01/24 08/17/24 Unknown magnesium) tablet metoprolol succinate 50 mg 50 mg PO DAILY #30 tabs 07/01/24 08/17/24 Unknown tablet,extended release 24 hr (Toprol XL) metformin 500 mg tablet 200 mg PO BID 08/12/24 08/17/24 Unknown prednisone 50 mg tablet 50 mg PO DAILY #3 tabs 08/14/24 08/17/24 Unknown olmesartan 40 mg tablet 40 mg PO DAILY 08/17/24 08/17/24 Unknown Active Medications Generic Name Dose Route Start Last Admin Trade Name Freq PRN Reason Stop Dose Admin Albuterol 3 ml 08/18/24 07:18 08/20/24 00:16 Albut/Ipratrop 3mg/0.5mg Neb 3 Ml Vial NEB 09/17/24 07:17 3 ml Q6R PRN Administration Shortness of breath, wheezing Protocol Aspirin 81 mg 08/18/24 09:00 08/27/24 08:32 Aspirin 81 Mg Chew PO 09/17/24 08:59 81 mg DAILY DOREEN Administration Enoxaparin Sodium 40 mg 08/25/24 11:00 08/27/24 08:31 Enoxaparin Inj 40 Mg/0.4 Ml Syr SQ 09/24/24 10:59 40 mg QAM DOREEN Administration Ferrous Sulfate 325 mg 08/20/24 17:00 08/27/24 08:02 Ferrous Sulfate 325 Mg Tab PO 09/19/24 16:59 Not Given BIDM DOREEN Folic Acid 1 mg 08/17/24 21:00 08/27/24 08:09 Folic Acid 1 Mg Tab PO 09/16/24 20:59 1 mg BID DOREEN Administration Formoterol Fumarate 20 mcg 08/18/24 19:00 08/27/24 07:40 Formoterol 20 Mcg/2 Ml Vial NEB 09/17/24 18:59 20 mcg BIDR DOREEN Administration Furosemide 20 mg 08/20/24 09:00 08/22/24 09:56 Furosemide 20 Mg Tab PO 09/19/24 08:59 20 mg QAM DOREEN Administration Hydralazine HCl 100 mg 08/17/24 21:00 08/23/24 08:57 Hydralazine Tab 50 Mg Tab PO 09/16/24 20:59 Not Given TID DOREEN Doxycycline Hyclate 100 mg/ 100 mls @ 50 mls/hr 08/22/24 18:30 08/27/24 08:40 Dextrose IV 08/31/24 18:29 Infused Q12H DOREEN Infusion Pantoprazole Sodium 40 mg in 10 mls @ 5 mls/min 08/25/24 09:00 08/27/24 08:14 Protonix IV 09/24/24 08:59 5 mls/min BID DOREEN Administration Levetiracetam 500 mg 08/17/24 21:00 08/22/24 09:58 Levetiracetam 500 Mg Tab PO 09/16/24 20:59 500 mg BID DOREEN Administration Levetiracetam 500 mg 08/22/24 21:00 08/27/24 08:14 Levetiracetam 500 Mg/5 Ml Vial IV 09/21/24 20:59 500 mg Q12H DOREEN Administration Losartan Potassium 100 mg 08/18/24 09:00 08/23/24 08:58 Losartan Potassium 50 Mg Tab PO 09/17/24 08:59 Not Given DAILY DOREEN Protocol Nutritional Formula 1,000 ml 08/25/24 14:30 08/26/24 21:59 Peptamen Intense Vhp 1.0 Presley 1,000 Ml Bag OG 09/24/24 14:29 1,000 ml .See Protocol DOREEN Administration Protocol Polyethylene Glycol 17 gm 08/22/24 09:00 08/27/24 08:15 Polyethylene (Miralax) 17 Gm Pack PO 09/21/24 08:59 17 gm DAILY DOREEN Administration Senna/Docusate Sodium 1 tab 08/21/24 17:00 08/27/24 08:14 Docusate Sodium/Senna 50/8.6mg Tab PO 09/20/24 16:59 Not Given QAM DOREEN
[2024-08-27] MEDS: MEROPENEM 500 MG in SYRINGE 0 ML IV SCH (16:53)
[2024-08-27] MEDS: METOPROLOL TARTRATE 1 MG/ML VIAL IV SCH (18:05)
[2024-08-27] MEDS: OSELTAMIVIR PHOSPHATE SUSP 75 MG/12.5 ML UDP PO SCH (19:54)
[2024-08-27] MEDS: hydrALAZINE HCL 20 MG/ML VIAL IV PRN (19:56)
--- NOTE | 2024-08-27 22:27 | Hospitalist Progress Note ---
Date of Service August 27, 2024 Assessment & Plan (1) Acute hypoxemic respiratory failure: Plan: This pt is a 74 yo female with a h/o ischemic CVA with hemorrhagic conversion s/p TNK, spontaneous ICH, HTN, PAF with pacer, DMII, muscular dystrophy, SIADH,who p/w worsening SOB and hypoxia. Found to be hypoxic on arrival and CT chest showed PNA. Initial BioFire neg for Influenza and everything else. #Pneumonia/Influenza A/ Acute respiratory failure with hypoxia---> 2/2 pneumonia and some component of acute on chronic HFpEF-with increasing BNP and CT with possible pulmonary edema. Procal negative on admission Pneumonia worse on CT from admission 08/[address] from 08/15 as an outpatient with increasing nodular opacities Consult pulmonology appreciated-added Cefepime and steroids Allergies and prolonged QT prevented addition of atypical coverage although her bio fire is negative for mycoplasma, Legionella urine antigen negative Appreciate ID consult-initially recommended continue cefepime only for now and if worsens or decompensates, consider bronchoscopy and adding Flagyl versus switching to meropenem. Could also consider desensitization to doxycycline if concern for atypical pneumonia. However, with worsening confusion on 08/20, switched cefepime to meropenem 08/22 developed fever, worsening hypoxia requiring 6LNC, became obtunded with ABG c/w acute resp alkalosis from sepsis. Repeat CXR shows worsening multifocal PNA. CT A/P with nodular infiltrates at lung bases but otherwise no acute issues. CT head with maxillary sinusitis. UA neg for infection. Procal neg. Biofire now POSITIVE for Influenza A ABG c/w acute respiratory alkalosis. SHe was intubated on 08/22 for being obtunded with severe encephalopathy. Had LP with no evidence of meningitis Bronchoscopy 08/23 showed multilobar PNA, BALs collected from bilateral lower lobes, no diffuse hemorrhage - extubated 08/27, will not reintubate -likely 2nd to influenza A -Continue meropenem and doxycycline for possible superimposed bacterial PNA -Continue bronchodilator nebs, continue inhaled fluticasone, umeclidinium/vi lanterol -follow up bronchoscopy culture results, still pending -critical care following: poor prognosis discussed with cable installer repairer (2) Pneumonia: Plan: With increasing nodular opacities and groundglass opacities diffusely on CT, treatment noted as above -on Meropenem and doxycycline extend to 10 days D/W cable installer repairer (3) Influenza: Plan: no Tamiflu to be given due to case reports of prolonged QT (4) Acute encephalopathy: Plan: Patient with worsening confusion since hospitalization as per family members. She does have baseline moderate expressive aphasia and some cognitive deficits. She did have a fall in the a.m. of 08/20-repeat head CT negative for hemorrhage, no new focal neuro deficits Cefepime switched to meropenem in case cefepime causing worsening delirium She has not moved her bowels in at least 5 days-added on bisacodyl as needed, added on Senokot On the morning of 08/21 patient was even more lethargic and confused-repeat head CT again performed due to head trauma the day before and history of intracranial hemorrhage-negative 08/22 became obtunded as above, repeat CT head neg for acute. With Influenza A + most likely cause of delirium Continue supportive care, promote good sleep-wake cycles once off sedation Continue treating infection of pneumonia and influenza Continue supplemental O2 to keep pulse ox greater than 90%-currently on vent Encephalopathy likely 2nd to Influenza A (5) Fall: Plan: Got out of bed on her own on 08/20 a.m. and fell and struck her head on the metal register as witnessed by environmental services Has a very minor abrasion on left upper back otherwise no injuries CT head negative PT/OT evaluation once condition improves. (6) UTI (urinary tract infection): Plan: Likely asymptomatic bacteriuria- urine culture with Enterococcus faecalis and Pseudomonas aeruginosa Discussed with ID-treating anyway with meropenem -con't meropenum (7) Iron deficiency anemia: Plan: Hemoglobin 9.3-9.9, iron studies show transferrin saturation very low at 5% B12 and folate normal Started oral iron supplement Does have hematuria microscopic-follow as an outpatient Consider GI workup if not done recently Heme is now 7.9 (8) Acute heart failure with preserved ejection fraction: Plan: Could possibly be due to previous salt tablets No significant leg edema to suggest right sided heart failure Echo from outpatient in 07/2024 shows EF 60-64%, moderate LVH, small posterior loculated pericardial effusion without tamponade Repeat echo here with preserved EF, no significant valvular disease UA with only trace protein, no prior liver problems and LFTs normal Diuresed over 3 L net negative. Converted IV Lasix to p.o. 20 mg daily on 08/19 but now on hold while NPO on vent Strict I&Os, daily weights, low-sodium diet Plan #Prolonged QT interval-QT difficult to interpret on EKG here even on repeat on 08/18 which shows paced rhythm atrial flutter. Appreciate cardiology consultation-historically when in sinus rhythm, she also had prolonged QT, hence they recommend avoiding QT prolonging agents #HTN -BPs normal, continue hydralazine, losartan, and Lasix, but discontinued Toprol-XL #pAfib/flutter- presence of Watchman hence no anticoagulation, permanent, appreciate cardiology consultation discontinue Toprol-XL due to shortness of breath #Hyponatremia-sodium 130 on arrival and now improved to 139 with diuresis-follow BMP #JG - CPAP HS once off vent #Recent hemorrhagic stroke-has repeat head CT as an outpatient scheduled for 09/05, follows with neurology. Repeat head CT here after fall in 08/20 and again on 08/21 negative for acute VTE Prophylaxis - SCDs, deferred chemical due to recent bloody LP Acute respiratory failure requiring intubation 2nd to Influenza A with multilobar PNA, s/p bronchoscopy on 08/23 Encephalopathy 2nd to influenza A Disposition -continued stay in ICU Critical care following Admission and Anticipated Discharge Date Admission Date: August 17, 2024 Subjective Patient is a poor historian. Family at bedside. Physical Exam Physical Exam: Patient is extubated Heart: RRR lungs: vent settings reviewed during rounds Abd: ND, soft extremities: no edema. Results & Data Results & Data Vital Signs (Past 12 Hours) Vital Signs Temp Pulse Pulse Resp BP Pulse Ox O2 Del Method 08/27/24 22:06 37.4 C 80 23 92 08/27/24 22:00 169/93 H 08/27/24 21:54 37.4 C 80 22 91 08/27/24 21:08 37.4 C 80 26 H 91 08/27/24 21:00 171/107 H 08/27/24 20:59 37.4 C 80 23 92 08/27/24 20:02 37.4 C 80 17 98 08/27/24 20:00 181/89 H 08/27/24 20:00 181/89 H 08/27/24 20:00 Oxymask 08/27/24 19:53 37.4 C 80 22 96 08/27/24 19:44 37.5 C 80 20 95 08/27/24 19:00 189/98 H 08/27/24 19:00 189/98 H 08/27/24 19:00 189/98 H 08/27/24 18:20 80 173/104 H 08/27/24 18:06 80 20 94 Oxymask 08/27/24 18:05 80 184/94 H 08/27/24 17:06 37.3 C 80 21 183/89 H 94 08/27/24 17:05 37.3 C 80 21 183/89 H 94 08/27/24 16:20 37.1 C 80 22 184/79 H 93 08/27/24 15:20 80 22 185/86 H 94 08/27/24 15:12 37.4 C 80 20 183/93 H 96 08/27/24 14:50 37.4 C 80 22 183/85 H 95 08/27/24 14:35 37.4 C 80 19 178/82 H 95 08/27/24 14:17 37.1 C 80 24 175/82 H 95 08/27/24 13:30 80 174/81 H 08/27/24 13:15 80 173/85 H 08/27/24 11:09 37.4 C 80 19 92 08/27/24 11:00 80 170/81 H 08/27/24 10:45 80 188/75 H 08/27/24 10:30 37.2 C 80 20 90 08/27/24 10:30 188/75 H O2 Flow Rate 08/27/24 22:06 08/27/24 22:00 08/27/24 21:54 08/27/24 21:08 08/27/24 21:00 08/27/24 20:59 08/27/24 20:02 08/27/24 20:00 08/27/24 20:00 08/27/24 20:00 4 08/27/24 19:53 08/27/24 19:44 08/27/24 19:00 08/27/24 19:00 08/27/24 19:00 08/27/24 18:20 08/27/24 18:06 4 08/27/24 18:05 08/27/24 17:06 4 08/27/24 17:05 4 08/27/24 16:20 4 08/27/24 15:20 4 08/27/24 15:12 4 08/27/24 14:50 4 08/27/24 14:35 4 08/27/24 14:17 08/27/24 13:30 08/27/24 13:15 08/27/24 11:09 08/27/24 11:00 08/27/24 10:45 08/27/24 10:30 08/27/24 10:30 PG Care Time/CCT Total # of Minutes Spent Total Time Spent with Patient: Total time spent is greater than 50% in coordination of care (as documented) at patient's floor/unit and/or counseling patient: Coding Level of Care Code 71538 SUB INP/OBS CARE 3/50MIN Diagnoses Acute hypoxemic respiratory failure J96.01 Pneumonia J18.9 Influenza J11.1 Acute encephalopathy G93.40 Fall, initial encounter W19.XXXA Encounter type: initial encounter Urinary tract infection without hematuria, site unspecified N39.0 Hematuria presence: without hematuria Urinary tract infection type: site unspecified Iron deficiency anemia D50.9 Acute heart failure with preserved ejection fraction I50.31 (5) Fall Encounter type: initial encounter Qualified Code(s): W19.XXXA - Unspecified fall, initial encounter (6) UTI (urinary tract infection) Hematuria presence: without hematuria Urinary tract infection type: site unspecified Qualified Code(s): N39.0 - Urinary tract infection, site not specified
[2024-08-28 03:33] LABS: Legionella DNA, Source BAL; Legionella Species DNA NOT DETECTED; Legionella pneumophila DNA NOT DETECTED
[2024-08-28 05:11] LABS: Hematocrit (blood only) 26.6 % (37.0-47.0); Hemoglobin 8.8 g/dl (12.0-16.0); Mean Corpuscular Hemoglobin 27.1 pg (25.0-34.0); Mean Corpuscular Hgb Conc 33.1 g/dL (32.0-36.0); Mean Corpuscular Volume 81.8 fL (80.0-100.0); Mean Platelet Volume 9.8 fL (9.4-12.4); Platelet Count 298 K/uL (130-400); RDW Coefficient of Variation 14.6 % (11.5-14.5); RDW Standard Deviation 43.5 fL (36.4-46.3); Red Blood Count 3.25 M/uL (4.20-5.40); White Blood Count 7.17 K/ul (4.8-10.8)
[2024-08-28 05:27] LABS: BUN Creatinine Ratio 44.1 (10-20); Calcium 8.9 mg/dl (8.6-10.3); Creatinine Clr Calc Pharmacy 72.2 ml/min; Magnesium 1.6 mg/dl (1.7-2.4); Potassium 3.6 mmol/L (3.5-5.1)
--- NOTE | 2024-08-28 06:49 | Critical Care Progress Note ---
Date of Service August 28, 2024 Assessment & Plan (1) Acute hypoxemic respiratory failure: (2) Pneumonia: (3) Influenza: (4) Acute encephalopathy: (5) Fall: (6) UTI (urinary tract infection): (7) Iron deficiency anemia: (8) Acute heart failure with preserved ejection fraction: Plan Reason Critically Ill: Acute respiratory failure requiring intubation 2/2 to Influenza A with multilobar pneumonia and recent decrease in mental status prompting ICU admission PLAN: Neuro: Encephalopathy: Likely multifactorial to include prior CVAs and sepsis -Expressive aphasia at baseline, lives at home with - slight improvement in alertness, moving all extremities, continue assessing for improvement - PT/OT: starting out with bed activity and balance while seated, will advance as tolerated Resp: Acute hypoxic respiratory failure in the setting of influenza A -terminal extubation this morning 08/27/24 with family present - > oxymask at 3L/min satting low-mid 90s -Continue bronchodilator nebs, inhaled fluticasone, umeclidinium/vilanterol - bronch culture results negative for growth - history of JG, CPAP nightly CV: recent elevation of BP: 140-180 / 70- low 100s -> started on Hydralazine 10mg IV q4 prn for SBP >180, DBP >90 - now has metoprolol 10mg IV q6 (previously 5mg) on board as she has metoprolol succinate 50mg PO as a home med, not currently ready for PO Prolonged QTc on EKG - potassium resolved, repleting mag - avoid QT-prolonging drugs when possible Fluids/Renal: 20 mg IV Lasix given on 08/25/24 but has been discontinued, currently net -1.7L fluids, 600cc urine in mares bag this AM - electrolytes grossly resolved - eGFR improving, creatinine resolved - BMP in AM - magnesium repletion ordered, mag level in AM ID: Influenza A -Tamiflu high dose, watch for prolonged QTc Possible secondary bacterial infection: Meropenem day 10 today, extending for another 4 days; d/c doxy due to neg legionella - pending less common pulmonary infectious etiologies Simple urinary tract infection: Treating E faecalis and Pseudomonas UTI GI/Nutrition: 08/28/24 speech/swallow eval ordered as pt has high aspiration risk Protonix IV for GI prophylaxis - Tube feeds initiated 08/25/24, continue while NPO - LFTs unremarkable, abdominal exam unremarkable - On bowel regimen, last BM on 08/22/24 Heme: Anemia: NOS likely multifactorial initial anemia was diagnosed back in June 2024 - hemoglobin transfused 1U PRBC 08/27/24: 7.1 -> 8.8 on 08/28/24 DVT prophylaxis: Lovenox, SCDs Endocrine: ICU hyperglycemia protocol Vascular access: Right IJ CVC placed 08/24/24 Code Status: DNR/DNI Disposition: ICU VTE Prophylaxis - on lovenox and SCDs Admission and Anticipated Discharge Date Admission Date: August 17, 2024 Supervising Physician Co-Signing Physician Notes Dr. Thomas was resident physician during care of patient. I separately evaluated patient for angel portions of the history and the exam. I was present during the critical portion of medical decision making, and I discussed the case with the resident. I generally agree with the findings and plan. Requiring CPAP of 9, wears this at night and patient tolerated well. 24 hours out from extubation. Patient will require speech evaluation given high risk for aspiration. I do not feel a NG tube for supplemental feeding is necessarily appropriate this time as the patient requires CPAP nightly, this may need to be readdressed in 24 to 72 hours. IV metoprolol as she is unable to take her routine p.o. medications at this time. Increasing scheduled IV metoprolol from 5 mg to 10 mg, patient has as needed hydralazine as needed, takes oral hydralazine which has very significant pharmacodynamics IV versus oral. DNR DNI in event of arrest or respiratory insufficiency. Critical care needs have by enlarge resolved. Discontinuing doxycycline Legionella negative, continue meropenem 14 days based off ID recommendations and clinical results. Patient is DNI in event of respiratory insufficiency therefore I feel empiric treatment of possible pneumonia is warranted. Patient stable for downgrade out of ICU. Subjective Patient was seen and evaluated at bedside this AM, trying to take CPAP mask off from overnight. Removed with RN assistance and replaced with oxymask at 5L/min, satting low-mid 90s. present, acknowledges that Hgb has improved since transfusion but still working on getting her more alert. Said "no, no" this morning when removing CPAP, but ultimately settled down when oxymask was on. Physical Exam Physical Exam: Constitutional: lethargic, nontoxic in appearance, improvement in alertness compared to day prior, still unable to gauge orientation Head: NC/AT Eyes: pupils mildly constricted b/l, slight further constriction upon shining pen light, unable to assess EOM ENT: oral mucus membranes appearing dry Cardiovascular: RRR, no murmurs/rubs/gallops heard on auscultation; 2+ radial pulses, 2+ dorsalis pedis pulses, no cyanosis/clubbing seen Respiratory: lungs clear to auscultation b/l, no wheezes/rales/rhonchi heard on auscultation Gastrointestinal: Non distended, +BS, nontender to palpation, no ecchymoses seen, negative beltrán's sign, no hepatosplenomegaly observed Musculoskeletal: b/l LE SCDs in place, no gross deformity of extremities Skin: b/l hands and feet slightly cool to touch, 1+ edema b/l hands slightly improved from day prior, areas of ecchymosis R>L dorsal hands Results & Data Results & Data Vital Signs (Past 12 Hours) Vital Signs Temp Pulse Resp BP Pulse Ox O2 Del Method O2 Flow Rate 08/28/24 06:12 80 179/80 H 08/28/24 06:05 80 179/80 H 08/28/24 06:00 179/80 H 08/28/24 06:00 179/80 H 08/28/24 06:00 36.8 C 80 29 H 91 08/28/24 05:12 37.1 C 80 25 H 93 08/28/24 05:00 181/86 H 08/28/24 05:00 181/86 H 08/28/24 05:00 181/86 H 08/28/24 04:39 37.2 C 80 26 H 94 08/28/24 04:12 37.3 C 80 21 95 08/28/24 03:25 80 24 96 3 08/28/24 03:06 37.6 C H 80 29 H 95 08/28/24 03:00 165/91 H 08/28/24 02:57 37.6 C H 80 26 H 96 08/28/24 02:00 164/83 H 08/28/24 02:00 164/83 H 08/28/24 02:00 164/83 H 08/28/24 02:00 37.6 C H 80 27 H 94 08/28/24 01:00 170/76 H 08/28/24 01:00 170/76 H 08/28/24 01:00 37.6 C H 80 27 H 95 08/28/24 00:31 80 24 98 3 08/28/24 00:27 80 165/82 H 08/28/24 00:16 80 165/82 H 08/28/24 00:12 37.6 C H 80 22 94 08/28/24 00:00 165/82 H 08/28/24 00:00 165/82 H 08/27/24 23:54 37.6 C H 80 26 H 96 08/27/24 23:24 37.6 C H 80 22 95 08/27/24 23:00 163/80 H 08/27/24 22:48 37.5 C 80 22 94 08/27/24 22:06 37.4 C 80 23 92 08/27/24 22:00 169/93 H 08/27/24 21:54 37.4 C 80 22 91 08/27/24 21:08 37.4 C 80 26 H 91 08/27/24 21:00 171/107 H 08/27/24 20:59 37.4 C 80 23 92 08/27/24 20:02 37.4 C 80 17 98 08/27/24 20:00 181/89 H 08/27/24 20:00 181/89 H 08/27/24 20:00 Oxymask 4 08/27/24 19:53 37.4 C 80 22 96 08/27/24 19:44 37.5 C 80 20 95 08/27/24 19:00 189/98 H 08/27/24 19:00 189/98 H 08/27/24 19:00 189/98 H Resident Activity Tracking Resident Involvement: Resident Care Provided Care Provided: Adult Hospital Medicine (5) Fall Encounter type: initial encounter Qualified Code(s): W19.XXXA - Unspecified fall, initial encounter (6) UTI (urinary tract infection) Hematuria presence: without hematuria Urinary tract infection type: site unspecified Qualified Code(s): N39.0 - Urinary tract infection, site not specified
--- NOTE | 2024-08-28 08:08 | XRay Report ---
EXAM: XR chest 1V portable CLINICAL HISTORY: INTUBATION JMT/SHREYA. TECHNIQUE: An X-ray image of the chest is obtained in 1 AP projection. COMPARISON: 08/27/2024 X-Ray Chest. FINDINGS: The endotracheal tube cannot be visualized. Stable Right CVL and NG tube in situ. Normopositioned left bicameral pacemaker. Pulmonary Parenchyma: Prominent bilateral alveolar opacities involving bilateral middle and right lower lung zone. Left lower lung zone and costophrenic angle obscured by cardiac shadow. No evidence of right pleural effusion or pleural thickening. Heart and Mediastinum: Cardiomegaly with dilated unfolded aorta and calcific atherosclerotic plaques. No mediastinal widening or masses. No hilar or mediastinal lymphadenopathy. Bony Thorax: Bony thorax appears intact without fractures or deformities. Soft Tissues: Soft tissues overlying the chest wall are unremarkable. IMPRESSION: 1. The endotracheal tube cannot be visualized. 2. Stable Right CVL and NG tube in situ. 3. Prominent bilateral alveolar opacities involving bilateral middle and right lower lung zone. Stable. Clinical correlation and follow-up chest x-ray advised. 4. Cardiomegaly with dilated unfolded aorta and calcific atherosclerotic plaques. Stable. Electronically signed by Yas Jenkins 08-28-2024 08:07 AM
--- NOTE | 2024-08-28 09:42 | Billing Data ---
Date of Service August 28, 2024 Coding Level of Care Code 98282 SUB INP/OBS CARE MIN
[2024-08-28] MEDS: METOPROLOL TARTRATE 1 MG/ML VIAL IV STA (09:49)
[2024-08-28] MEDS: MULTI VIT W/MINERALS LIQUID 15 ML UDC NG SCH (10:24)
[2024-08-28] MEDS: METOPROLOL TARTRATE 1 MG/ML VIAL IV SCH (11:19)
--- NOTE | 2024-08-28 16:42 | Infectious Disease Progress Nt ---
Date of Service August 28, 2024 Assessment & Plan (1) Prolonged QT interval: (2) Pneumonia: Plan This is a 74-year-old female with a past medical history of myotonic dystrophy, atrial fibrillation, CVAs, hypertension, emphysematous lung disease, neuromuscular weakness who presents to the ED with shortness of breath and hypoxia. She is on oxygen at home as needed. She denies any fevers, chills, nausea, vomiting. Denies any aspiration events. Sats at home were in the 70s. In the ED temperature 36.4, pulse 90, RR 34, blood pressure 170/96, O2 sat 78% on room air-->95% on 5l . Labs: WBC 8.46, hemoglobin 10.9, hematocrit 33.7, platelets 389, BUN 18, creatinine 0.77. Respiratory viral panel negative. Urine Legionella antigen negative, MRSA screen negative.. Procalcitonin 0.06. CTA chest with no pulmonary embolism; + groundglass opacities and nodular densities which may represent infectious/inflammatory airway disease. Repeat imaging shows multifocal patchy areas of groundglass and a few regions of nodular opacities most consistent with an atypical infectious process. Findings were increased from 05/2025. There is mild superimposed interstitial pulmonary edema. Chest x-ray shows no glass infiltrate on the right base concerning for pneumonia which could be infectious or related to aspiration. There is acute on chronic interstitial changes ; c/f pulmonary edema or infectious pneumonitis. TTE with trace pericardial effusion. She was started on cefepime 08/18. ID consulted for possible atypical pneumonia as patient is unable to receive azithromycin and doxycycline. Per her chart, she has documented allergies listed: Itching/yeast infections with moxifloxacin, itching with tetracyclines, rash with penicillins, anaphylaxis with sulfa. When asked if she remembers exactly what occurs when she received these antibiotics, she does not remember. She is not certain if these allergies are accurate. An EKG shows an prolonged QTc; 604 on 08/18 and 523 on 08/17. Pulmonology is following: Initially there were no plans for bronchoscopy given underlying comorbidities. Micro UCx 08/17 >100K E faecalis ( amp S), Pseudomonas Aer Blood culture 08/22 staph epi and 2 out of 4 bottles CSF culture 08/22 no growth Bronc culture 08/22 many polys on Gram stain, no organisms, no growth: Scant normal graham, no yeast or hyphae seen Legionella culture 08/22 pending Legionella species 08/23 PCR pending Pneumocystis jirovecii/ PCR pending Abx Cefepime 08/18-08/20 Meropenem 08/20- ongoing Acyclovir 08/22 vanco 08/22 Tamiflu 08/24-ongoing Doxycycline 08/22- ongoing # Acute hypoxic respiratory failure # Pneumonia vs Pneumonitis # Staph epi bacteremia, likely contaminant #Influenza A infection # Abx allergies - PCN : rash -Tetracycline: itching -Moxifloxacin: itching -Sulfa- swelling # Prolonged QTC # Myotonic dystrophy #PPM in place #Asymptomatic bacteriuria Discussion- Procalcitonin on admission was low at 0.06 and she remained afebrile. It was initailly unclear if presentation was 2/2 pneumonia vs pneumonitis. There was c/f atypical infection and aspiration on imaging. Urine legionella ag negative. Mycoplasma pna and Chlamydia pna pcr negative ( on RVP). MRSA screen negative. She has documented allergies as per above, but she was not sure of the reactions. Recommended that if continued concern for atypical pneumonia, can consider desensitization to doxycycline but would hold azithromycin or fluoroquinolones for now as QTC is prolonged 08/20 Pseudomonas and Enterococcus faecals grew in urine. Asymptomatic for UTI. Fell over night now with increased confusion. There was concern for Cefepime effects, so discontinued Cefepime given increased confusion. Started Meropenem instead for PNA coverage. This will also cover E faecalis although no coverage needed with asymptomatic bacteriuria. 08/21 She was clinically improving and has less o2 requirements. Now on 3LNC (from 5L). No plans for bronch per pulm as clinically improving. ID recommended 7 days of antibiotics. 08/22 ID asked to reeval as she had fevers Tm 39, worsening respiratory status and worsening mental status. No mention of new rash or ulcer per d/w team. Changed Meropenem to GRAIN OILSEED OR PASTURE GROWER dosing , added vanco and acyclovir pending LP although it was less likely that she developed a nosocomial GRAIN OILSEED OR PASTURE GROWER infection. CT head with no acute pathology. CTAP showed. CTAB mild patchy bibasilar opacities in the lower lungs consistent with an atypical infectious process. No infectious process seen in the abdomen or pelvis. Intubated and mechanically vented. Procal 0.46. Doxycycline started. 08/26 long weekend events reviewed . CSF not c/w meningitis. CSF fluid with 0 WBC, 53 RBC, 87 glucose, 57 protein, meningitis encephalitis panel negative Repeat respiratory viral panel positive for influenza A (H3) on PCR. On tamiflu now. failed extubation on 08/24 and remains intubated. She underwent bronch on 08/23: There appeared to be bilateral friable tissue with thick white mucoid secretions emanating from all lobes . 08/27 Extubated on 4l NC hypertensive , On day 5 tamiflu today 08/28 On 3LNC. Afebrile. hypertensive. Legionella pCR BAL negative Recommendations Continue Tamiflu times 10 days given clinical picture Continue Meropenem Anticipate a total of 10d ( 08/20-08/30) May need to extend to 14 days based on clinical picture. Continue doxycycline 100 mg Iv q12h for 10 d ( 08/22-09/01). Final Duration depe nds of results of Legionella cx and clinical picture ( PCR + but cx pending) Follow up legionella culture, aspergillus ag, coccidioides, histo and PJP pcr from 08/23 bronch Efraín Toth MD, MPH Infectious Disease [facility], ID Division Call [phone] with questions. Admission and Anticipated Discharge Date Admission Date: August 17, 2024 Subjective This patient recommendation is based on a telemedicine consult request which was completed asynchronously through chart review and information provided by the primary physician. The patient was not seen or examined today. The evaluation is consultative in nature and all patient care and treatment decisions can either be accepted or rejected by the patient's primary hospital-based treating physician using their own independent medical judgment for their patient. Time Spent Reviewing Chart: 21 - 30 minutes Afebrile. On 3LNC oximask Hypertensive Results & Data Vital Signs (Past 12 Hours) Vital Signs Temp Pulse Pulse Resp BP Pulse Ox Pulse Ox 08/28/24 14:00 37.1 C 80 28 H 94 08/28/24 13:00 194/82 H 08/28/24 12:54 37.2 C 80 22 95 08/28/24 12:09 37.1 C 80 27 H 96 08/28/24 11:51 173/85 H 08/28/24 11:51 93 08/28/24 11:49 81 173/85 H 08/28/24 11:48 37.2 C 80 30 H 96 08/28/24 11:30 177/91 H 08/28/24 11:30 177/91 H 08/28/24 11:30 37.2 C 80 23 95 08/28/24 11:19 80 179/117 H 08/28/24 10:30 175/92 H 08/28/24 10:25 80 172/84 H 08/28/24 10:15 37.2 C 80 29 H 94 08/28/24 10:00 37.2 C 80 32 H 95 08/28/24 10:00 172/84 H 08/28/24 10:00 172/84 H 08/28/24 09:49 80 183/85 H 08/28/24 09:30 183/85 H 08/28/24 09:03 37.3 C 80 24 92 08/28/24 09:00 166/84 H 08/28/24 08:57 37.3 C 80 27 H 08/28/24 08:30 37.4 C 80 29 H 94 08/28/24 08:30 180/81 H 08/28/24 08:18 37.4 C 80 31 H 96 08/28/24 08:00 189/94 H 08/28/24 08:00 08/28/24 07:41 80 08/28/24 07:00 37.2 C 80 28 H 95 08/28/24 06:59 80 28 H 94 08/28/24 06:59 80 28 H 94 08/28/24 06:12 80 179/80 H 08/28/24 06:05 80 179/80 H 08/28/24 06:00 179/80 H 08/28/24 06:00 179/80 H 08/28/24 06:00 179/80 H 08/28/24 06:00 36.8 C 80 29 H 91 08/28/24 05:12 37.1 C 80 25 H 93 08/28/24 05:00 181/86 H 08/28/24 05:00 181/86 H 08/28/24 05:00 181/86 H 08/28/24 04:39 37.2 C 80 26 H 94 O2 Del Method O2 Flow Rate O2 Flow Rate 08/28/24 14:00 Oxymask 3 08/28/24 13:00 08/28/24 12:54 Oxymask 3 08/28/24 12:09 Oxymask 3 08/28/24 11:51 08/28/24 11:51 3 08/28/24 11:49 08/28/24 11:48 Oxymask 3 08/28/24 11:30 08/28/24 11:30 08/28/24 11:30 Oxymask 3 08/28/24 11:19 08/28/24 10:30 08/28/24 10:25 08/28/24 10:15 Oxymask 08/28/24 10:00 CPAP 08/28/24 10:00 08/28/24 10:00 08/28/24 09:49 08/28/24 09:30 08/28/24 09:03 CPAP 08/28/24 09:00 08/28/24 08:57 08/28/24 08:30 CPAP 08/28/24 08:30 08/28/24 08:18 CPAP 08/28/24 08:00 08/28/24 08:00 CPAP 08/28/24 07:41 08/28/24 07:00 CPAP 08/28/24 06:59 CPAP 4 08/28/24 06:59 4 08/28/24 06:12 08/28/24 06:05 08/28/24 06:00 08/28/24 06:00 08/28/24 06:00 08/28/24 06:00 08/28/24 05:12 08/28/24 05:00 08/28/24 05:00 08/28/24 05:00 08/28/24 04:39 Laboratory Results Short CBC 08/28/24 Range/Units 04:37 WBC 7.17 (4.8-10.8) K/ul Hgb 8.8 L (12.0-16.0) g/dl Hct 26.6 L (37.0-47.0) % Plt Count 298 (130-400) K/uL BMP 08/28/24 04:37 Sodium 139 Potassium 3.6 Chloride 102 Carbon Dioxide 30 BUN 26 H Creatinine 0.59 L Glucose 87 Calcium 8.9 Diagnostic Findings Microbiology 08/22/24 16:00 Blood Aerobic Blood Culture - Final No growth in Aerobic bottle after 5 days. 08/22/24 16:00 Blood Anaerobic Blood Culture - Final 08/23/24 11:00 Bronch Wash, Trach Tree Fungal Smear - Final 08/23/24 11:00 Bronch Wash, Trach Tree Fungal Culture - Preliminary No yeast or fungus isolated - Report 1, Additional Report to Follow. 08/23/24 11:00 Bronch Wash, Trach Tree Gram Stain - Final 08/23/24 11:00 Bronch Wash, Trach Tree Bronchial Culture - Final Scant normal graham. 08/22/24 22:30 Sputum, Expectorated Gram Stain - Final 08/22/24 22:30 Sputum, Expectorated Sputum Culture - Final Light normal graham. 08/22/24 15:39 Blood Aerobic Blood Culture - Preliminary Staphylococcus epidermidis 08/22/24 15:39 Blood Anaerobic Blood Culture - Preliminary Staphylococcus epidermidis 08/23/24 11:00 Bronch Wash, Trach Tree Acid Fast Bacilli Smear - Final 08/22/24 19:00 Cerebral Spinal Fluid Gram Stain - Final 08/22/24 19:00 Cerebral Spinal Fluid CSF Culture - Final No growth 08/17/24 18:12 Urine,Straight Cath Urine Culture - Final Enterococcus faecalis Pseudomonas aeruginosa Chest X-Ray 08/26/24 09:50 XR chest 1V portable CLINICAL HISTORY: intubation TECHNIQUE: Single frontal radiograph of the chest was obtained. Comparison: Comparison is made to chest radiograph 08/25/2024 FINDINGS: Lines and tubes are stable. Cardiomegaly is noted. The aortic arch is calcified. Bilateral lower lung predominant airspace opacities are seen. Trace right pleural effusion is again seen. IMPRESSION: 1. Stable satisfactory appearance of lines and tubes. 2. Bilateral pleural effusions and airspace opacities are seen. ACT 112: Negative or not required by law. Electronically signed by: Gagandeep Fernandez M.D. 08/26/2024 10:23 AM Chest X-Ray 08/27/24 06:00 EXAM: XR chest 1V portable CLINICAL HISTORY: INTUBATION TECHNIQUE: An X-ray image of the chest is obtained in 1 AP projection. COMPARISON: Prior study dated 08/25/2024. FINDINGS: ETT with tip 4.4 cm above ángela (satisfactory). Stable Right CVL and NG tube in situ. Left side ICD device Pulmonary Parenchyma: Prominent bilateral alveolar opacities involving bilateral middle and right lower lung zone Left lower lung zone and costophrenic angle obscured by cardiac shadow. No evidence of right pleural effusion or pleural thickening. Heart and Mediastinum: Cardiomegaly with dilated unfolded aorta and calcific atherosclerotic plaques. No mediastinal widening or masses. No hilar or mediastinal lymphadenopathy. Bony Thorax: Bony thorax appears intact without fractures or deformities. Soft Tissues: Soft tissues overlying the chest wall are unremarkable. IMPRESSION: 1. ETT with tip 4.4 cm above ángela (satisfactory). 2. Stable Right CVL and NG tube in situ. 3. Left side ICD device. 4. Prominent bilateral alveolar opacities involving bilateral middle and right lower lung zone. 5. Cardiomegaly with dilated unfolded aorta and calcific atherosclerotic plaques. 6. No significant time interval changes. Electronically signed by Yas Jenkins 08-27-2024 08:32 AM Chest X-Ray 08/28/24 06:00 EXAM: XR chest 1V portable CLINICAL HISTORY: INTUBATION JMT/SHREYA. TECHNIQUE: An X-ray image of the chest is obtained in 1 AP projection. COMPARISON: 08/27/2024 X-Ray Chest. FINDINGS: The endotracheal tube cannot be visualized. Stable Right CVL and NG tube in situ. Normopositioned left bicameral pacemaker. Pulmonary Parenchyma: Prominent bilateral alveolar opacities involving bilateral middle and right lower lung zone. Left lower lung zone and costophrenic angle obscured by cardiac shadow. No evidence of right pleural effusion or pleural thickening. Heart and Mediastinum: Cardiomegaly with dilated unfolded aorta and calcific atherosclerotic plaques. No mediastinal widening or masses. No hilar or mediastinal lymphadenopathy. Bony Thorax: Bony thorax appears intact without fractures or deformities. Soft Tissues: Soft tissues overlying the chest wall are unremarkable. IMPRESSION: 1. The endotracheal tube cannot be visualized. 2. Stable Right CVL and NG tube in situ. 3. Prominent bilateral alveolar opacities involving bilateral middle and right lower lung zone. Stable. Clinical correlation and follow-up chest x-ray advised. 4. Cardiomegaly with dilated unfolded aorta and calcific atherosclerotic plaques. Stable. Electronically signed by Yas Jenkins 08-28-2024 08:07 AM Medications Administered Home Medications Medication Instructions Recorded Confirmed Last Taken fluticasone propionate 50 2 spray intranasal DAILY PRN 04/13/22 08/17/24 03/05/24 mcg/actuation nasal Allergy Symptoms spray,suspension (Flonase Allergy Relief) albuterol sulfate 90 mcg/actuation 2 puff inhalation Q4H PRN 10/25/22 08/17/24 Unknown aerosol inhaler (Ventolin HFA) Shortness Of Breath #3 Inhalers fluticasone fur. 100 mcg-umeclid 1 inh inhalation DAILY #3 Inhalers 12/25/23 08/17/24 04/26/24 62.5 mcg-vilant 25 mcg inhalat.powder (Trelegy Ellipta) aspirin 81 mg chewable tablet 81 mg PO DAILY 02/07/24 08/17/24 04/26/24 levetiracetam 500 mg tablet 500 mg PO BID 02/07/24 08/17/24 04/26/24 (Keppra) multivitamin 1 tab PO DAILY 02/07/24 08/17/24 04/26/24 folic acid 1 mg tablet 1 mg PO BID 04/26/24 08/17/24 04/26/24 hydralazine 50 mg tablet 100 mg (2 x 50 mg) PO TID #90 tabs 05/21/24 08/17/24 Unknown cholecalciferol (vitamin D3) 50 50 mcg PO DAILY 06/29/24 08/17/24 Unknown mcg (2,000 unit) capsule magnesium oxide 400 mg (241.3 mg 400 mg PO QAM #0 tabs 07/01/24 08/17/24 Unknown magnesium) tablet metoprolol succinate 50 mg 50 mg PO DAILY #30 tabs 07/01/24 08/17/24 Unknown tablet,extended release 24 hr (Toprol XL) metformin 500 mg tablet 200 mg PO BID 08/12/24 08/17/24 Unknown prednisone 50 mg tablet 50 mg PO DAILY #3 tabs 08/14/24 08/17/24 Unknown olmesartan 40 mg tablet 40 mg PO DAILY 08/17/24 08/17/24 Unknown Active Medications Generic Name Dose Route Start Last Admin Trade Name Freq PRN Reason Stop Dose Admin Albuterol 3 ml 08/18/24 07:18 08/20/24 00:16 Albut/Ipratrop 3mg/0.5mg Neb 3 Ml Vial NEB 09/17/24 07:17 3 ml Q6R PRN Administration Shortness of breath, wheezing Protocol Aspirin 81 mg 08/18/24 09:00 08/28/24 10:24 Aspirin 81 Mg Chew PO 09/17/24 08:59 Not Given DAILY DOREEN Enoxaparin Sodium 40 mg 08/25/24 11:00 08/28/24 08:23 Enoxaparin Inj 40 Mg/0.4 Ml Syr SQ 09/24/24 10:59 40 mg QAM DOREEN Administration Ferrous Sulfate 325 mg 08/20/24 17:00 08/28/24 10:24 Ferrous Sulfate 325 Mg Tab PO 09/19/24 16:59 Not Given BIDM DOREEN Folic Acid 1 mg 08/17/24 21:00 08/28/24 10:24 Folic Acid 1 Mg Tab PO 09/16/24 20:59 Not Given BID DOREEN Formoterol Fumarate 20 mcg 08/18/24 19:00 08/28/24 06:59 Formoterol 20 Mcg/2 Ml Vial NEB 09/17/24 18:59 20 mcg BIDR DOREEN Administration Furosemide 20 mg 08/20/24 09:00 08/22/24 09:56 Furosemide 20 Mg Tab PO 09/19/24 08:59 20 mg QAM DOREEN Administration Hydralazine HCl 100 mg 08/17/24 21:00 08/23/24 08:57 Hydralazine Tab 50 Mg Tab PO 09/16/24 20:59 Not Given TID DOREEN Hydralazine HCl 10 mg 08/27/24 18:24 08/28/24 08:17 Hydralazine Hcl 20 Mg/Ml Vial IV 09/26/24 18:23 10 mg Q4H PRN Administration SBP > 180 and/or DBP >90 Pantoprazole Sodium 40 mg in 10 mls @ 5 mls/min 08/25/24 09:00 08/28/24 08:24 Protonix IV 09/24/24 08:59 5 mls/min BID DOREEN Administration Meropenem 500 mg/ Syringe 10 mls @ 2 mls/min 08/27/24 16:00 08/28/24 15:39 IV 09/03/24 23:59 2 mls/min Q6H DOREEN Administration Protocol Levetiracetam 500 mg 08/17/24 21:00 08/22/24 09:58 Levetiracetam 500 Mg Tab PO 09/16/24 20:59 500 mg BID DOREEN Administration Levetiracetam 500 mg 08/22/24 21:00 08/28/24 08:23 Levetiracetam 500 Mg/5 Ml Vial IV 09/21/24 20:59 500 mg Q12H DOREEN Administration Losartan Potassium 100 mg 08/18/24 09:00 08/23/24 08:58 Losartan Potassium 50 Mg Tab PO 09/17/24 08:59 Not Given DAILY [facility] Protocol Metoprolol Tartrate 10 mg 08/28/24 12:00 08/28/24 11:19 Metoprolol Tartrate 1 Mg/Ml Vial IV 09/27/24 11:59 10 mg Q6 DOREEN Administration Multivitamins/Minerals 15 ml 08/28/24 09:00 08/28/24 10:24 Multi Vit W/Minerals Liquid 15 Ml Udc NG 09/27/24 08:59 Not Given QAM [facility] Nutritional Formula 1,000 ml 08/25/24 14:30 08/26/24 21:59 Peptamen Intense Vhp 1.0 Presley 1,000 Ml Bag OG 09/24/24 14:29 1,000 ml .See Protocol DOREEN Administration Protocol Oseltamivir Phosphate 75 mg 08/27/24 21:00 08/28/24 10:24 Oseltamivir Phosphate Susp 75 Mg/12.5 Ml Udp PO 08/29/24 20:59 Not Given BID DOREEN Polyethylene Glycol 17 gm 08/22/24 09:00 08/28/24 10:24 Polyethylene (Miralax) 17 Gm Pack PO 09/21/24 08:59 Not Given DAILY DOREEN Senna/Docusate Sodium 1 tab 08/21/24 17:00 08/28/24 10:24 Docusate Sodium/Senna 50/8.6mg Tab PO 09/20/24 16:59 Not Given QAM [facility]
[2024-08-28] MEDS: MAGNESIUM SULFATE / D5W 1 GM/100 ML BAG IV SCH (16:43)
--- NOTE | 2024-08-28 23:08 | Hospitalist Progress Note ---
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 Found to be hypoxic on arrival and CT chest showed PNA. Initial BioFire neg for Influenza and everything else. #Pneumonia/Influenza A/ Acute respiratory failure with hypoxia---> 2/2 pneumonia and some component of acute on chronic HFpEF-with increasing BNP and CT with possible pulmonary edema. Procal negative on admission Pneumonia worse on CT from admission 08/[address] from 08/15 as an outpatient with increasing nodular opacities Consult pulmonology appreciated-added Cefepime and steroids Allergies and prolonged QT prevented addition of atypical coverage although her bio fire is negative for mycoplasma, Legionella urine antigen negative Appreciate ID consult-initially recommended continue cefepime only for now and if worsens or decompensates, consider bronchoscopy and adding Flagyl versus switching to meropenem. Could also consider desensitization to doxycycline if concern for atypical pneumonia. However, with worsening confusion on 08/20, switched cefepime to meropenem 08/22 developed fever, worsening hypoxia requiring 6LNC, became obtunded with ABG c/w acute resp alkalosis from sepsis. Repeat CXR shows worsening multifocal PNA. CT A/P with nodular infiltrates at lung bases but otherwise no acute issues. CT head with maxillary sinusitis. UA neg for infection. Procal neg. Biofire now POSITIVE for Influenza A ABG c/w acute respiratory alkalosis. SHe was intubated on 08/22 for being obtunded with severe encephalopathy. Had LP with no evidence of meningitis Bronchoscopy 08/23 showed multilobar PNA, BALs collected from bilateral lower lobes, no diffuse hemorrhage - extubated 08/27, will not reintubate -likely 2nd to influenza A -Continue meropenem and doxycycline for possible superimposed bacterial PNA -Continue bronchodilator nebs, continue inhaled fluticasone, umeclidinium/vi lanterol -follow up bronchoscopy culture results, still pending -critical care following: poor prognosis discussed with usability engineer/ downgraded on 08/28 between 3-4 liters nasal cannula (2) Pneumonia: Plan: With increasing nodular opacities and groundglass opacities diffusely on CT, treatment noted as above -on Meropenem and doxycycline extend to 10 days D/W usability engineer (3) Influenza: Plan: no Tamiflu to be given due to case reports of prolonged QT (4) Acute encephalopathy: Plan: Patient with worsening confusion since hospitalization as per family members. She does have baseline moderate expressive aphasia and some cognitive deficits. She did have a fall in the a.m. of 08/20-repeat head CT negative for hemorrhage, no new focal neuro deficits Cefepime switched to meropenem in case cefepime causing worsening delirium She has not moved her bowels in at least 5 days-added on bisacodyl as needed, added on Senokot On the morning of 08/21 patient was even more lethargic and confused-repeat head CT again performed due to head trauma the day before and history of intracranial hemorrhage-negative 08/22 became obtunded as above, repeat CT head neg for acute. With Influenza A + most likely cause of delirium Continue supportive care, promote good sleep-wake cycles once off sedation Continue treating infection of pneumonia and influenza Continue supplemental O2 to keep pulse ox greater than 90%-currently on vent Encephalopathy likely 2nd to Influenza A (5) Fall: Plan: Got out of bed on her own on 08/20 a.m. and fell and struck her head on the metal register as witnessed by environmental services Has a very minor abrasion on left upper back otherwise no injuries CT head negative PT/OT evaluation once condition improves. (6) UTI (urinary tract infection): Plan: Likely asymptomatic bacteriuria- urine culture with Enterococcus faecalis and Pseudomonas aeruginosa Discussed with ID-treating anyway with meropenem -con't meropenum (7) Iron deficiency anemia: Plan: Hemoglobin 9.3-9.9, iron studies show transferrin saturation very low at 5% B12 and folate normal Started oral iron supplement Does have hematuria microscopic-follow as an outpatient Consider GI workup if not done recently Heme is now 7.9 (8) Acute heart failure with preserved ejection fraction: Plan: Could possibly be due to previous salt tablets No significant leg edema to suggest right sided heart failure Echo from outpatient in 07/2024 shows EF 60-64%, moderate LVH, small posterior loculated pericardial effusion without tamponade Repeat echo here with preserved EF, no significant valvular disease UA with only trace protein, no prior liver problems and LFTs normal Diuresed over 3 L net negative. Converted IV Lasix to p.o. 20 mg daily on 08/19 but now on hold while NPO on vent Strict I&Os, daily weights, low-sodium diet Plan #Prolonged QT interval-QT difficult to interpret on EKG here even on repeat on 08/18 which shows paced rhythm atrial flutter. Appreciate cardiology consultation-historically when in sinus rhythm, she also had prolonged QT, hence they recommend avoiding QT prolonging agents #HTN -BPs normal, continue hydralazine, losartan, and Lasix, but discontinued Toprol-XL #pAfib/flutter- presence of Watchman hence no anticoagulation, permanent, appreciate cardiology consultation discontinue Toprol-XL due to shortness of breath #Hyponatremia-sodium 130 on arrival and now improved to 139 with diuresis-follow BMP #JG - CPAP HS once off vent #Recent hemorrhagic stroke-has repeat head CT as an outpatient scheduled for 09/05, follows with neurology. Repeat head CT here after fall in 08/20 and again on 08/21 negative for acute VTE Prophylaxis - SCDs, deferred chemical due to recent bloody LP Acute respiratory failure requiring intubation 2nd to Influenza A with multilobar PNA, s/p bronchoscopy on 08/23 Encephalopathy 2nd to influenza A Disposition -continued stay in ICU Critical care following Admission and Anticipated Discharge Date Admission Date: August 17, 2024 Subjective Patient denies pain Physical Exam Physical Exam: Patient is extubated, more awake, says yes no Heart: RRR lungs: vent settings reviewed during rounds Abd: ND, soft extremities: no edema. Results & Data Results & Data Vital Signs (Past 12 Hours) Vital Signs Temp Pulse Resp BP Pulse Ox Pulse Ox O2 Del Method 08/28/24 22:21 37.0 C 80 20 95 08/28/24 22:00 166/81 H 08/28/24 21:27 37.1 C 80 18 96 08/28/24 21:00 176/80 H 08/28/24 21:00 176/80 H 08/28/24 21:00 37.0 C 80 22 96 08/28/24 20:30 177/81 H 08/28/24 20:30 177/81 H 08/28/24 20:21 37.0 C 80 26 H 98 08/28/24 20:00 37.0 C 80 30 H 95 08/28/24 19:12 37.1 C 80 31 H 93 08/28/24 19:00 174/81 H 08/28/24 19:00 174/81 H 08/28/24 18:42 37.1 C 80 29 H 94 08/28/24 18:30 165/81 H 08/28/24 18:30 165/81 H 08/28/24 18:30 165/81 H 08/28/24 18:26 164/83 H 08/28/24 18:26 80 164/83 H 08/28/24 18:09 37.2 C 80 25 H 95 08/28/24 18:03 37.2 C 80 34 H 94 08/28/24 18:00 172/79 H 08/28/24 18:00 172/79 H 08/28/24 17:57 37.2 C 80 32 H 94 08/28/24 17:57 80 172/79 H 08/28/24 17:21 37.2 C 80 21 97 08/28/24 17:00 176/92 H 08/28/24 16:06 37.3 C 80 25 H 96 08/28/24 16:00 182/96 H 08/28/24 16:00 182/96 H 08/28/24 16:00 80 08/28/24 15:57 37.1 C 80 30 H 94 08/28/24 15:30 37.3 C 80 31 H 94 08/28/24 15:00 173/77 H 08/28/24 15:00 37.3 C 80 28 H 93 08/28/24 14:30 183/86 H 08/28/24 14:24 37.2 C 80 29 H 95 08/28/24 14:00 37.1 C 80 28 H 94 Oxymask 08/28/24 13:00 194/82 H 08/28/24 12:54 37.2 C 80 22 95 Oxymask 08/28/24 12:09 37.1 C 80 27 H 96 Oxymask 08/28/24 11:51 173/85 H 08/28/24 11:51 93 08/28/24 11:49 81 173/85 H 08/28/24 11:48 37.2 C 80 30 H 96 Oxymask 08/28/24 11:30 177/91 H 08/28/24 11:30 177/91 H 08/28/24 11:30 37.2 C 80 23 95 Oxymask 08/28/24 11:19 80 179/117 H O2 Flow Rate O2 Flow Rate 08/28/24 22:21 08/28/24 22:00 08/28/24 21:27 08/28/24 21:00 08/28/24 21:00 08/28/24 21:00 08/28/24 20:30 08/28/24 20:30 08/28/24 20:21 08/28/24 20:00 08/28/24 19:12 08/28/24 19:00 08/28/24 19:00 08/28/24 18:42 08/28/24 18:30 08/28/24 18:30 08/28/24 18:30 08/28/24 18:26 08/28/24 18:26 08/28/24 18:09 08/28/24 18:03 08/28/24 18:00 08/28/24 18:00 08/28/24 17:57 08/28/24 17:57 08/28/24 17:21 08/28/24 17:00 08/28/24 16:06 08/28/24 16:00 08/28/24 16:00 08/28/24 16:00 08/28/24 15:57 08/28/24 15:30 08/28/24 15:00 08/28/24 15:00 08/28/24 14:30 08/28/24 14:24 08/28/24 14:00 3 08/28/24 13:00 08/28/24 12:54 3 08/28/24 12:09 3 08/28/24 11:51 08/28/24 11:51 3 08/28/24 11:49 08/28/24 11:48 3 08/28/24 11:30 08/28/24 11:30 08/28/24 11:30 3 08/28/24 11:19 PG Care Time/CCT Total # of Minutes Spent Total Time Spent with Patient: Total time spent is greater than 50% in coordination of care (as documented) at patient's floor/unit and/or counseling patient: Coding Level of Care Code 78669 SUB INP/OBS CARE 3/50MIN Diagnoses Acute hypoxemic respiratory failure J96.01 Pneumonia J18.9 Influenza J11.1 Acute encephalopathy G93.40 Fall, initial encounter W19.XXXA Encounter type: initial encounter Urinary tract infection without hematuria, site unspecified N39.0 Hematuria presence: without hematuria Urinary tract infection type: site unspecified Iron deficiency anemia D50.9 Acute heart failure with preserved ejection fraction I50.31 (5) Fall Encounter type: initial encounter Qualified Code(s): W19.XXXA - Unspecified fall, initial encounter (6) UTI (urinary tract infection) Hematuria presence: without hematuria Urinary tract infection type: site unspecified Qualified Code(s): N39.0 - Urinary tract infection, site not specified
[2024-08-29 06:24] LABS: Hematocrit (blood only) 28.4 % (37.0-47.0); Hemoglobin 9.3 g/dl (12.0-16.0); Mean Corpuscular Hemoglobin 26.9 pg (25.0-34.0); Mean Corpuscular Hgb Conc 32.7 g/dL (32.0-36.0); Mean Corpuscular Volume 82.1 fL (80.0-100.0); Mean Platelet Volume 9.9 fL (9.4-12.4); Platelet Count 342 K/uL (130-400); RDW Coefficient of Variation 14.7 % (11.5-14.5); RDW Standard Deviation 44.2 fL (36.4-46.3); Red Blood Count 3.46 M/uL (4.20-5.40); White Blood Count 6.15 K/ul (4.8-10.8)
[2024-08-29 06:32] LABS: BUN Creatinine Ratio 42.6 (10-20); C Reactive Protein 4.83 mg/dl (0-0.5); Calcium 9.5 mg/dl (8.6-10.3); Creatinine Clr Calc Pharmacy 78.9 ml/min; Potassium 3.3 mmol/L (3.5-5.1)
--- NOTE | 2024-08-29 07:58 | XRay Report ---
EXAM: XR chest 1V portable CLINICAL HISTORY: INTUBATION SHREYA/JMT. TECHNIQUE: An X-ray image of the chest is obtained in 1 AP projection. COMPARISON: 08/28/2024 X-ray Chest. FINDINGS: Stable Right CVL in situ. Normopositioned left bicameral pacemaker. Pulmonary Parenchyma: Prominent bilateral alveolar opacities involving bilateral middle and right lower lung zone. Left lower lung zone and costophrenic angle obscured by cardiac shadow. No evidence of right pleural effusion or pleural thickening. Heart and Mediastinum: Cardiomegaly. No mediastinal widening or masses. No hilar or mediastinal lymphadenopathy. Bony Thorax: The bony thorax appears intact without fractures or deformities. Soft Tissues: Soft tissues overlying the chest wall are unremarkable. IMPRESSION: Mild increase in prominent bilateral alveolar opacities involving bilateral lungs respect the prior study. Correlate with clinical and follow-up. Electronically signed by Yas Jenkins 08-29-2024 07:58 AM
[2024-08-29] MEDS: DOXYCYCLINE HYCLATE 100 MG in DEXTROSE 5% MINI-B 100 ML IV SCH (09:40)
[2024-08-29] MEDS: POTASSIUM CHLORIDE / WTR 10 MEQ/100 ML PLCT IV SCH (10:55)
--- NOTE | 2024-08-29 17:20 | Infectious Disease Progress Nt ---
Date of Service August 29, 2024 Assessment & Plan (1) Prolonged QT interval: (2) Pneumonia: Plan This is a 74-year-old female with a past medical history of myotonic dystrophy, atrial fibrillation, CVAs, hypertension, emphysematous lung disease, neuromuscular weakness who presents to the ED with shortness of breath and hypoxia. She is on oxygen at home as needed. She denies any fevers, chills, nausea, vomiting. Denies any aspiration events. Sats at home were in the 70s. In the ED temperature 36.4, pulse 90, RR 34, blood pressure 170/96, O2 sat 78% on room air-->95% on 5l . Labs: WBC 8.46, hemoglobin 10.9, hematocrit 33.7, platelets 389, BUN 18, creatinine 0.77. Respiratory viral panel negative. Urine Legionella antigen negative, MRSA screen negative.. Procalcitonin 0.06. CTA chest with no pulmonary embolism; + groundglass opacities and nodular densities which may represent infectious/inflammatory airway disease. Repeat imaging shows multifocal patchy areas of groundglass and a few regions of nodular opacities most consistent with an atypical infectious process. Findings were increased from 05/2025. There is mild superimposed interstitial pulmonary edema. Chest x-ray shows no glass infiltrate on the right base concerning for pneumonia which could be infectious or related to aspiration. There is acute on chronic interstitial changes ; c/f pulmonary edema or infectious pneumonitis. TTE with trace pericardial effusion. She was started on cefepime 08/18. ID consulted for possible atypical pneumonia as patient is unable to receive azithromycin and doxycycline. Per her chart, she has documented allergies listed: Itching/yeast infections with moxifloxacin, itching with tetracyclines, rash with penicillins, anaphylaxis with sulfa. When asked if she remembers exactly what occurs when she received these antibiotics, she does not remember. She is not certain if these allergies are accurate. An EKG shows an prolonged QTc; 604 on 08/18 and 523 on 08/17. Pulmonology is following: Initially there were no plans for bronchoscopy given underlying comorbidities. Micro UCx 08/17 >100K E faecalis ( amp S), Pseudomonas Aer Blood culture 08/22 staph epi and 2 out of 4 bottles CSF culture 08/22 no growth Bronc culture 08/22 many polys on Gram stain, no organisms, no growth: Scant normal graham, no yeast or hyphae seen Legionella culture 08/22 pending Legionella species 08/23 PCR pending Pneumocystis jirovecii PCR pending Abx Cefepime 08/18-08/20 Meropenem 08/20- ongoing Acyclovir 08/22 vanco 08/22 Tamiflu 08/24-08/29 Doxycycline 08/22- 08/28 # Acute hypoxic respiratory failure # Pneumonia vs Pneumonitis # Staph epi bacteremia, likely contaminant #Influenza A infection # Abx allergies - PCN : rash -Tetracycline: itching -Moxifloxacin: itching -Sulfa- swelling # Prolonged QTC # Myotonic dystrophy #PPM in place #Asymptomatic bacteriuria Discussion- Procalcitonin on admission was low at 0.06 and she remained afebrile. It was initially unclear if presentation was 2/2 pneumonia vs pneumonitis. There was c/f atypical infection and aspiration on imaging. Urine legionella ag negative. Mycoplasma pna and Chlamydia pna pcr negative ( on RVP). MRSA screen negative. She has documented allergies as per above, but she was not sure of the reactions. Recommended that if continued concern for atypical pneumonia, can consider desensitization to doxycycline but would hold azithromycin or fluoroquinolones for now as QTC is prolonged 08/20 Pseudomonas and Enterococcus faecalis grew in urine. Asymptomatic for UTI. Fell over night now with increased confusion. There was concern for Cefepime effects, so discontinued Cefepime given increased confusion. Started Meropenem instead for PNA coverage. This maría provided coverage for E faecalis although no coverage needed with asymptomatic bacteriuria. 08/21 She was clinically improving and has less o2 requirements. Was on 3LNC (from 5L). No plans for bronch per pulm as clinically improving. ID recommended 7 days of antibiotics. 08/22 ID asked to reeval as she had fevers Tm 39, worsening respiratory status and worsening mental status. No mention of new rash or ulcer per d/w team. Changed Meropenem to SACK MAKER dosing , added vanco and acyclovir pending LP although it was less likely that she developed a nosocomial SACK MA[employer]ER infection. CT head with no acute pathology. CTAP showed mild patchy bibasilar opacities in the lower lungs consistent with an atypical infectious process. No infectious process seen in the abdomen or pelvis. Intubated and mechanically vented. Procal 0.46. Doxycycline started. 08/26 long weekend events reviewed . CSF not c/w meningitis. CSF fluid with 0 WBC, 53 RBC, 87 glucose, 57 protein, meningitis encephalitis panel negative. Vanco and acyclovir discontinued. Repeat respiratory viral panel positive for influenza A (H3) on PCR. On tamiflu now. Failed extubation on 08/24 and remains intubated. She underwent bronch on 08/23: There appeared to be bilateral friable tissue with thick white mucoid secretions emanating from all lobes . 08/27 Extubated on 4l NC hypertensive , On day 5 tamiflu today. No plans for reintubation. Poor prognosis per pulm 08/28 On 3LNC. Afebrile. hypertensive. Legionella pCR BAL negative. bacterial cultures negative 08/29 Team stopped Tamiflu at day 7. Team stopped Doxycycline as Legionella PCR negative. Recommendations Continue Meropenem Anticipate a total of 10d ( 08/20-08/30) May need to extend to 14 days based on clinical picture. Follow up legionella culture, aspergillus ag, coccidioides, histo and PJP pcr from 08/23 bronch ID will sign off. Please call with questions. Efraín Toth MD, MPH Infectious Disease [facility], ID [facility] Call [phone] with questions. Admission and Anticipated Discharge Date Admission Date: August 17, 2024 Subjective This patient recommendation is based on a telemedicine consult request which was completed asynchronously through chart review and information provided by the primary physician. The patient was not seen or examined today. The evaluation is consultative in nature and all patient care and treatment decisions can either be accepted or rejected by the patient's primary hospital-based treating physician using their own independent medical judgment for their patient. Time Spent Reviewing Chart: 21 - 30 minutes On oximask Downgraded out of ICU Doxycycline discontinued by team Tamiflu completed Results & Data Vital Signs (Past 12 Hours) Vital Signs Temp Pulse Pulse Resp BP Pulse Ox O2 Del Method 08/29/24 13:25 80 08/29/24 12:26 80 167/93 H 08/29/24 12:01 167/93 H 08/29/24 11:46 80 165/94 H 08/29/24 11:45 80 08/29/24 11:23 36.8 C 80 16 165/94 H 96 08/29/24 10:27 165/94 H 08/29/24 09:23 182/118 H 08/29/24 07:51 36.8 C 89 18 119/72 95 08/29/24 07:19 88 16 94 CPAP 08/29/24 07:19 88 16 94 08/29/24 06:17 80 182/118 H 08/29/24 05:51 80 186/107 H 08/29/24 05:40 80 O2 Flow Rate 08/29/24 13:25 08/29/24 12:26 08/29/24 12:01 08/29/24 11:46 08/29/24 11:45 08/29/24 11:23 08/29/24 10:27 08/29/24 09:23 08/29/24 07:51 08/29/24 07:19 4 08/29/24 07:19 4 08/29/24 06:17 08/29/24 05:51 08/29/24 05:40 Laboratory Results Short CBC 08/29/24 Range/Units 05:53 WBC 6.15 (4.8-10.8) K/ul Hgb 9.3 L (12.0-16.0) g/dl Hct 28.4 L (37.0-47.0) % Plt Count 342 (130-400) K/uL BMP 08/29/24 05:53 Sodium 138 Potassium 3.3 L Chloride 100 Carbon Dioxide 30 BUN 23 Creatinine 0.54 L Glucose 88 Calcium 9.5 Diagnostic Findings Microbiology 08/22/24 16:00 Blood Aerobic Blood Culture - Final No growth in Aerobic bottle after 5 days. 08/22/24 16:00 Blood Anaerobic Blood Culture - Final 08/23/24 11:00 Bronch Wash, Trach Tree Fungal Smear - Final 08/23/24 11:00 Bronch Wash, Trach Tree Fungal Culture - Preliminary No yeast or fungus isolated - Report 1, Additional Report to Follow. 08/23/24 11:00 Bronch Wash, Trach Tree Gram Stain - Final 08/23/24 11:00 Bronch Wash, Trach Tree Bronchial Culture - Final Scant normal graham. 08/22/24 22:30 Sputum, Expectorated Gram Stain - Final 08/22/24 22:30 Sputum, Expectorated Sputum Culture - Final Light normal graham. 08/22/24 15:39 Blood Aerobic Blood Culture - Preliminary Staphylococcus epidermidis 08/22/24 15:39 Blood Anaerobic Blood Culture - Preliminary Staphylococcus epidermidis 08/23/24 11:00 Bronch Wash, Trach Tree Acid Fast Bacilli Smear - Final 08/22/24 19:00 Cerebral Spinal Fluid Gram Stain - Final 08/22/24 19:00 Cerebral Spinal Fluid CSF Culture - Final No growth 08/17/24 18:12 Urine,Straight Cath Urine Culture - Final Enterococcus faecalis Pseudomonas aeruginosa Chest X-Ray 08/27/24 06:00 EXAM: XR chest 1V portable CLINICAL HISTORY: INTUBATION TECHNIQUE: An X-ray image of the chest is obtained in 1 AP projection. COMPARISON: Prior study dated 08/25/2024. FINDINGS: ETT with tip 4.4 cm above ángela (satisfactory). Stable Right CVL and NG tube in situ. Left side ICD device Pulmonary Parenchyma: Prominent bilateral alveolar opacities involving bilateral middle and right lower lung zone Left lower lung zone and costophrenic angle obscured by cardiac shadow. No evidence of right pleural effusion or pleural thickening. Heart and Mediastinum: Cardiomegaly with dilated unfolded aorta and calcific atherosclerotic plaques. No mediastinal widening or masses. No hilar or mediastinal lymphadenopathy. Bony Thorax: Bony thorax appears intact without fractures or deformities. Soft Tissues: Soft tissues overlying the chest wall are unremarkable. IMPRESSION: 1. ETT with tip 4.4 cm above ángela (satisfactory). 2. Stable Right CVL and NG tube in situ. 3. Left side ICD device. 4. Prominent bilateral alveolar opacities involving bilateral middle and right lower lung zone. 5. Cardiomegaly with dilated unfolded aorta and calcific atherosclerotic plaques. 6. No significant time interval changes. Electronically signed by Yas Jenkins 08-27-2024 08:32 AM Chest X-Ray 08/28/24 06:00 EXAM: XR chest 1V portable CLINICAL HISTORY: INTUBATION JMT/SHREYA. TECHNIQUE: An X-ray image of the chest is obtained in 1 AP projection. COMPARISON: 08/27/2024 X-Ray Chest. FINDINGS: The endotracheal tube cannot be visualized. Stable Right CVL and NG tube in situ. Normopositioned left bicameral pacemaker. Pulmonary Parenchyma: Prominent bilateral alveolar opacities involving bilateral middle and right lower lung zone. Left lower lung zone and costophrenic angle obscured by cardiac shadow. No evidence of right pleural effusion or pleural thickening. Heart and Mediastinum: Cardiomegaly with dilated unfolded aorta and calcific atherosclerotic plaques. No mediastinal widening or masses. No hilar or mediastinal lymphadenopathy. Bony Thorax: Bony thorax appears intact without fractures or deformities. Soft Tissues: Soft tissues overlying the chest wall are unremarkable. IMPRESSION: 1. The endotracheal tube cannot be visualized. 2. Stable Right CVL and NG tube in situ. 3. Prominent bilateral alveolar opacities involving bilateral middle and right lower lung zone. Stable. Clinical correlation and follow-up chest x-ray advised. 4. Cardiomegaly with dilated unfolded aorta and calcific atherosclerotic plaques. Stable. Electronically signed by Yas Jenkins 08-28-2024 08:07 AM Chest X-Ray 08/29/24 06:00 EXAM: XR chest 1V portable CLINICAL HISTORY: INTUBATION SHREYA/JMT. TECHNIQUE: An X-ray image of the chest is obtained in 1 AP projection. COMPARISON: 08/28/2024 X-ray Chest. FINDINGS: Stable Right CVL in situ. Normopositioned left bicameral pacemaker. Pulmonary Parenchyma: Prominent bilateral alveolar opacities involving bilateral middle and right lower lung zone. Left lower lung zone and costophrenic angle obscured by cardiac shadow. No evidence of right pleural effusion or pleural thickening. Heart and Mediastinum: Cardiomegaly. No mediastinal widening or masses. No hilar or mediastinal lymphadenopathy. Bony Thorax: The bony thorax appears intact without fractures or deformities. Soft Tissues: Soft tissues overlying the chest wall are unremarkable. IMPRESSION: Mild increase in prominent bilateral alveolar opacities involving bilateral lungs respect the prior study. Correlate with clinical and follow-up. Electronically signed by Yas Jenkins 08-29-2024 07:58 AM Medications Administered Home Medications Medication Instructions Recorded Confirmed Last Taken fluticasone propionate 50 2 spray intranasal DAILY PRN 04/13/22 08/17/24 03/05/24 mcg/actuation nasal Allergy Symptoms spray,suspension (Flonase Allergy Relief) albuterol sulfate 90 mcg/actuation 2 puff inhalation Q4H PRN 10/25/22 08/17/24 Unknown aerosol inhaler (Ventolin HFA) Shortness Of Breath #3 Inhalers fluticasone fur. 100 mcg-umeclid 1 inh inhalation DAILY #3 Inhalers 12/25/23 08/17/24 04/26/24 62.5 mcg-vilant 25 mcg inhalat.powder (Trelegy Ellipta) aspirin 81 mg chewable tablet 81 mg PO DAILY 02/07/24 08/17/24 04/26/24 levetiracetam 500 mg tablet 500 mg PO BID 02/07/24 08/17/24 04/26/24 (Keppra) multivitamin 1 tab PO DAILY 02/07/24 08/17/24 04/26/24 folic acid 1 mg tablet 1 mg PO BID 04/26/24 08/17/24 04/26/24 hydralazine 50 mg tablet 100 mg (2 x 50 mg) PO TID #90 tabs 05/21/24 08/17/24 Unknown cholecalciferol (vitamin D3) 50 50 mcg PO DAILY 06/29/24 08/17/24 Unknown mcg (2,000 unit) capsule magnesium oxide 400 mg (241.3 mg 400 mg PO QAM #0 tabs 07/01/24 08/17/24 Unknown magnesium) tablet metoprolol succinate 50 mg 50 mg PO DAILY #30 tabs 07/01/24 08/17/24 Unknown tablet,extended release 24 hr (Toprol XL) metformin 500 mg tablet 200 mg PO BID 08/12/24 08/17/24 Unknown prednisone 50 mg tablet 50 mg PO DAILY #3 tabs 08/14/24 08/17/24 Unknown olmesartan 40 mg tablet 40 mg PO DAILY 08/17/24 08/17/24 Unknown Active Medications Generic Name Dose Route Start Last Admin Trade Name Freq PRN Reason Stop Dose Admin Albuterol 3 ml 08/18/24 07:18 08/20/24 00:16 Albut/Ipratrop 3mg/0.5mg Neb 3 Ml Vial NEB 09/17/24 07:17 3 ml Q6R PRN Administration Shortness of breath, wheezing Protocol Aspirin 81 mg 08/18/24 09:00 08/29/24 08:27 Aspirin 81 Mg Chew PO 09/17/24 08:59 Not Given DAILY DOREEN Enoxaparin Sodium 40 mg 08/25/24 11:00 08/29/24 08:20 Enoxaparin Inj 40 Mg/0.4 Ml Syr SQ 09/24/24 10:59 40 mg QAM DOREEN Administration Ferrous Sulfate 325 mg 08/20/24 17:00 08/29/24 17:13 Ferrous Sulfate 325 Mg Tab PO 09/19/24 16:59 Not Given BIDM DOREEN Folic Acid 1 mg 08/17/24 21:00 08/29/24 08:27 Folic Acid 1 Mg Tab PO 09/16/24 20:59 Not Given BID DOREEN Formoterol Fumarate 20 mcg 08/18/24 19:00 08/29/24 07:19 Formoterol 20 Mcg/2 Ml Vial NEB 09/17/24 18:59 20 mcg BIDR DOREEN Administration Furosemide 20 mg 08/20/24 09:00 08/22/24 09:56 Furosemide 20 Mg Tab PO 09/19/24 08:59 20 mg QAM DOREEN Administration Hydralazine HCl 100 mg 08/17/24 21:00 08/23/24 08:57 Hydralazine Tab 50 Mg Tab PO 09/16/24 20:59 Not Given TID DOREEN Hydralazine HCl 10 mg 08/27/24 18:24 08/29/24 09:25 Hydralazine Hcl 20 Mg/Ml Vial IV 09/26/24 18:23 10 mg Q4H PRN Administration SBP > 180 and/or DBP >90 Pantoprazole Sodium 40 mg in 10 mls @ 5 mls/min 08/25/24 09:00 08/29/24 08:14 Protonix IV 09/24/24 08:59 5 mls/min BID DOREEN Administration Meropenem 500 mg/ Syringe 10 mls @ 2 mls/min 08/27/24 16:00 08/29/24 17:12 IV 09/03/24 23:59 2 mls/min Q6H DOREEN Administration Protocol Levetiracetam 500 mg 08/17/24 21:00 08/22/24 09:58 Levetiracetam 500 Mg Tab PO 09/16/24 20:59 500 mg BID DOREEN Administration Levetiracetam 500 mg 08/22/24 21:00 08/29/24 09:21 Levetiracetam 500 Mg/5 Ml Vial IV 09/21/24 20:59 500 mg Q12H DOREEN Administration Losartan Potassium 100 mg 08/18/24 09:00 08/23/24 08:58 Losartan Potassium 50 Mg Tab PO 09/17/24 08:59 Not Given DAILY DOREEN Protocol Metoprolol Tartrate 10 mg 08/28/24 12:00 08/29/24 11:46 Metoprolol Tartrate 1 Mg/Ml Vial IV 09/27/24 11:59 10 mg Q6 DOREEN Administration Multivitamins/Minerals 15 ml 08/28/24 09:00 08/29/24 08:27 Multi Vit W/Minerals Liquid 15 Ml Udc NG 09/27/24 08:59 Not Given QAM [facility] Nutritional Formula 1,000 ml 08/25/24 14:30 08/26/24 21:59 Peptamen Intense Vhp 1.0 Presley 1,000 Ml Bag OG 09/24/24 14:29 1,000 ml .See Protocol DOREEN Administration Protocol Oseltamivir Phosphate 75 mg 08/27/24 21:00 08/29/24 08:27 Oseltamivir Phosphate Susp 75 Mg/12.5 Ml Udp PO 08/29/24 20:59 Not Given BID DOREEN Polyethylene Glycol 17 gm 08/22/24 09:00 08/29/24 08:31 Polyethylene (Miralax) 17 Gm Pack PO 09/21/24 08:59 Not Given DAILY [facility] Senna/Docusate Sodium 1 tab 08/21/24 17:00 08/29/24 08:27 Docusate Sodium/Senna 50/8.6mg Tab PO 09/20/24 16:59 Not Given QAM [facility]
--- NOTE | 2024-08-29 23:59 | Hospitalist Progress Note ---
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 Found to be hypoxic on arrival and CT chest showed PNA. Initial BioFire neg for Influenza and everything else. #Pneumonia/Influenza A/ Acute respiratory failure with hypoxia---> 2/2 pneumonia and some component of acute on chronic HFpEF-with increasing BNP and CT with possible pulmonary edema. Procal negative on admission Pneumonia worse on CT from admission 08/[address] from 08/15 as an outpatient with increasing nodular opacities Consult pulmonology appreciated-added Cefepime and steroids Allergies and prolonged QT prevented addition of atypical coverage although her bio fire is negative for mycoplasma, Legionella urine antigen negative Appreciate ID consult-initially recommended continue cefepime only for now and if worsens or decompensates, consider bronchoscopy and adding Flagyl versus switching to meropenem. Could also consider desensitization to doxycycline if concern for atypical pneumonia. However, with worsening confusion on 08/20, switched cefepime to meropenem 08/22 developed fever, worsening hypoxia requiring 6LNC, became obtunded with ABG c/w acute resp alkalosis from sepsis. Repeat CXR shows worsening multifocal PNA. CT A/P with nodular infiltrates at lung bases but otherwise no acute issues. CT head with maxillary sinusitis. UA neg for infection. Procal neg. Biofire now POSITIVE for Influenza A ABG c/w acute respiratory alkalosis. SHe was intubated on 08/22 for being obtunded with severe encephalopathy. Had LP with no evidence of meningitis Bronchoscopy 08/23 showed multilobar PNA, BALs collected from bilateral lower lobes, no diffuse hemorrhage - extubated 08/27, will not reintubate -likely 2nd to influenza A -Continue meropenem and doxycycline for possible superimposed bacterial PNA -Continue bronchodilator nebs, continue inhaled fluticasone, umeclidinium/vi lanterol -follow up bronchoscopy culture results, still pending -critical care following: poor prognosis discussed with billboard poster helper/ downgraded on 08/28 between 3-4 liters nasal cannula (2) Pneumonia: Plan: With increasing nodular opacities and groundglass opacities diffusely on CT, treatment noted as above -on Meropenem and doxycycline extend to 10 days D/W billboard poster helper (3) Influenza: Plan: no Tamiflu to be given due to case reports of prolonged QT (4) Acute encephalopathy: Plan: Patient with worsening confusion since hospitalization as per family members. She does have baseline moderate expressive aphasia and some cognitive deficits. She did have a fall in the a.m. of 08/20-repeat head CT negative for hemorrhage, no new focal neuro deficits Cefepime switched to meropenem in case cefepime causing worsening delirium She has not moved her bowels in at least 5 days-added on bisacodyl as needed, added on Senokot On the morning of 08/21 patient was even more lethargic and confused-repeat head CT again performed due to head trauma the day before and history of intracranial hemorrhage-negative 08/22 became obtunded as above, repeat CT head neg for acute. With Influenza A + most likely cause of delirium Continue supportive care, promote good sleep-wake cycles once off sedation Continue treating infection of pneumonia and influenza Continue supplemental O2 to keep pulse ox greater than 90%-currently on vent Encephalopathy likely 2nd to Influenza A Concern over her nutrition, given need for CPAP at night, she may not be compatible with NG tube feedings. Now that she is more awake, will obtain a speech consult. (5) Fall: Plan: Got out of bed on her own on 08/20 a.m. and fell and struck her head on the metal register as witnessed by environmental services Has a very minor abrasion on left upper back otherwise no injuries CT head negative PT/OT evaluation once condition improves. (6) UTI (urinary tract infection): Plan: Likely asymptomatic bacteriuria- urine culture with Enterococcus faecalis and Pseudomonas aeruginosa Discussed with ID-treating anyway with meropenem -con't meropenum (7) Iron deficiency anemia: Plan: Hemoglobin 9.3-9.9, iron studies show transferrin saturation very low at 5% B12 and folate normal Started oral iron supplement Does have hematuria microscopic-follow as an outpatient Consider GI workup if not done recently Heme is now 7.9 (8) Acute heart failure with preserved ejection fraction: Plan: Could possibly be due to previous salt tablets No significant leg edema to suggest right sided heart failure Echo from outpatient in 07/2024 shows EF 60-64%, moderate LVH, small posterior loculated pericardial effusion without tamponade Repeat echo here with preserved EF, no significant valvular disease UA with only trace protein, no prior liver problems and LFTs normal Diuresed over 3 L net negative. Converted IV Lasix to p.o. 20 mg daily on 08/19 Strict I&Os, daily weights, low-sodium diet Plan #Prolonged QT interval-QT difficult to interpret on EKG here even on repeat on 08/18 which shows paced rhythm atrial flutter. Appreciate cardiology consultation-historically when in sinus rhythm, she also had prolonged QT, hence they recommend avoiding QT prolonging agents #HTN -BPs normal, continue hydralazine, losartan, and Lasix, but discontinued Toprol-XL #pAfib/flutter- presence of Watchman hence no anticoagulation, permanent, appreciate cardiology consultation discontinue Toprol-XL due to shortness of breath #Hyponatremia-sodium 130 on arrival and now improved to 139 with diuresis-follow BMP #JG - CPAP HS once off vent #Recent hemorrhagic stroke-has repeat head CT as an outpatient scheduled for 09/05, follows with neurology. Repeat head CT here after fall in 08/20 and again on 08/21 negative for acute VTE Prophylaxis - SCDs, deferred chemical due to recent bloody LP Acute respiratory failure requiring intubation 2nd to Influenza A with multilobar PNA, s/p bronchoscopy on 08/23 Encephalopathy 2nd to influenza A Disposition -now in PCU Admission and Anticipated Discharge Date Admission Date: August 17, 2024 Subjective Patient is more awake now. Was lethargic earlier. Physical Exam Physical Exam: Patient is more awake, says yes no Heart: RRR lungs: coarse breath sounds Abd: ND, soft extremities: no edema. Results & Data Results & Data Vital Signs (Past 12 Hours) Vital Signs Temp Pulse Pulse Resp BP BP Pulse Ox 08/29/24 23:40 80 39 H 92 08/29/24 22:04 36.8 C 80 18 179/93 H 93 08/29/24 20:31 83 23 96 08/29/24 20:17 83 18 96 08/29/24 20:00 08/29/24 19:37 36.8 C 80 20 178/107 H 95 08/29/24 19:18 80 179/95 H 08/29/24 18:53 80 180/88 H 08/29/24 13:25 80 08/29/24 12:26 80 167/93 H 08/29/24 12:01 167/93 H O2 Del Method O2 Flow Rate 08/29/24 23:40 4 08/29/24 22:04 BiPAP 08/29/24 20:31 4 08/29/24 20:17 CPAP 4 08/29/24 20:00 Oxymask, BiPAP 4 08/29/24 19:37 Oxymask 4 08/29/24 19:18 08/29/24 18:53 08/29/24 13:25 08/29/24 12:26 08/29/24 12:01 PG Care Time/CCT Total # of Minutes Spent Total Time Spent with Patient: Total time spent is greater than 50% in coordination of care (as documented) at patient's floor/unit and/or counseling patient: Coding Level of Care Code 06739 SUB INP/OBS CARE 3/50MIN Diagnoses Acute hypoxemic respiratory failure J96.01 Pneumonia J18.9 Influenza J11.1 Acute encephalopathy G93.40 Fall, initial encounter W19.XXXA Encounter type: initial encounter Urinary tract infection without hematuria, site unspecified N39.0 Hematuria presence: without hematuria Urinary tract infection type: site unspecified Iron deficiency anemia D50.9 Acute heart failure with preserved ejection fraction I50.31 (5) Fall Encounter type: initial encounter Qualified Code(s): W19.XXXA - Unspecified fall, initial encounter (6) UTI (urinary tract infection) Hematuria presence: without hematuria Urinary tract infection type: site unspecified Qualified Code(s): N39.0 - Urinary tract infection, site not specified
[2024-08-30 01:09] LABS: Base Excess VBG 7.8 mEq/L; HCO3 VBG 32 mmol/L; Oxygen Saturation VBG 60.8 %; PCO2 VBG 42 mmHg (38-50); PO2 VBG 36 mmHg; pH VBG 7.49 (7.36-7.41)
[2024-08-30] MEDS: FUROSEMIDE 40 MG/4 ML VIAL IV ONE (01:10)
[2024-08-30] MEDS: LORazepam 2 MG/1 ML VIAL IV STA (04:05)
[2024-08-30 07:20] LABS: Hematocrit (blood only) 28.1 % (37.0-47.0); Mean Corpuscular Hemoglobin 26.6 pg (25.0-34.0); Mean Corpuscular Volume 83.1 fL (80.0-100.0); Mean Platelet Volume 9.7 fL (9.4-12.4); Platelet Count 333 K/uL (130-400); RDW Coefficient of Variation 14.8 % (11.5-14.5); RDW Standard Deviation 44.7 fL (36.4-46.3); Red Blood Count 3.38 M/uL (4.20-5.40); White Blood Count 6.46 K/ul (4.8-10.8)
[2024-08-30 07:31] LABS: BUN Creatinine Ratio 40.7 (10-20); C Reactive Protein 3.19 mg/dl (0-0.5); Creatinine Clr Calc Pharmacy 72.2 ml/min; Potassium 2.9 mmol/L (3.5-5.1)
[2024-08-30] MEDS: POTASSIUM CHLORIDE / WTR 10 MEQ/100 ML PLCT IV SCH (14:21)
--- NOTE | 2024-08-30 23:14 | Hospitalist Progress Note ---
Date of Service August 30, 2024 Assessment & Plan (1) Acute hypoxemic respiratory failure: Plan: This pt is a 74 yo female with a h/o ischemic CVA with hemorrhagic conversion s/p TNK, spontaneous ICH, HTN, PAF with pacer, DMII, muscular dystrophy, SIADH,who p/w worsening SOB and hypoxia. Found to be hypoxic on arrival and CT chest showed PNA. Initial BioFire neg for Influenza and everything else. #Pneumonia/Influenza A/ Acute respiratory failure with hypoxia---> 2/2 pneumonia and some component of acute on chronic HFpEF-with increasing BNP and CT with possible pulmonary edema. Procal negative on admission Pneumonia worse on CT from admission 08/[address] from 08/15 as an outpatient with increasing nodular opacities Consult pulmonology appreciated-added Cefepime and steroids Allergies and prolonged QT prevented addition of atypical coverage although her bio fire is negative for mycoplasma, Legionella urine antigen negative Appreciate ID consult-initially recommended continue cefepime only for now and if worsens or decompensates, consider bronchoscopy and adding Flagyl versus switching to meropenem. Could also consider desensitization to doxycycline if concern for atypical pneumonia. However, with worsening confusion on 08/20, switched cefepime to meropenem 08/22 developed fever, worsening hypoxia requiring 6LNC, became obtunded with ABG c/w acute resp alkalosis from sepsis. Repeat CXR shows worsening multifocal PNA. CT A/P with nodular infiltrates at lung bases but otherwise no acute issues. CT head with maxillary sinusitis. UA neg for infection. Procal neg. Biofire now POSITIVE for Influenza A ABG c/w acute respiratory alkalosis. SHe was intubated on 08/22 for being obtunded with severe encephalopathy. Had LP with no evidence of meningitis Bronchoscopy 08/23 showed multilobar PNA, BALs collected from bilateral lower lobes, no diffuse hemorrhage - extubated 08/27, will not reintubate -likely 2nd to influenza A -Continue meropenem and doxycycline for possible superimposed bacterial PNA -Continue bronchodilator nebs, continue inhaled fluticasone, umeclidinium/vi lanterol -follow up bronchoscopy culture results, still pending -critical care following: poor prognosis discussed with mining technician/ downgraded on 08/28 between 3-4 liters nasal cannula Now cleared to eat. However, oral intake does appear to be limited. overall prognosis appears to be poor espeically if patient continues poor oral intake. (2) Pneumonia: Plan: With increasing nodular opacities and groundglass opacities diffusely on CT, treatment noted as above -on Meropenem extend to 10 days (3) Influenza: Plan: no Tamiflu to be given due to case reports of prolonged QT (4) Acute encephalopathy: Plan: Patient with worsening confusion since hospitalization as per family members. She does have baseline moderate expressive aphasia and some cognitive deficits. She did have a fall in the a.m. of 08/20-repeat head CT negative for hemorrhage, no new focal neuro deficits Cefepime switched to meropenem in case cefepime causing worsening delirium She has not moved her bowels in at least 5 days-added on bisacodyl as needed, added on Senokot On the morning of 08/21 patient was even more lethargic and confused-repeat head CT again performed due to head trauma the day before and history of intracranial hemorrhage-negative 08/22 became obtunded as above, repeat CT head neg for acute. With Influenza A + most likely cause of delirium Continue supportive care, promote good sleep-wake cycles once off sedation Continue treating infection of pneumonia and influenza Continue supplemental O2 to keep pulse ox greater than 90%-currently on vent Encephalopathy likely 2nd to Influenza A Concern over her nutrition, given need for CPAP at night, she may not be compatible with NG tube feedings. Now that she is more awake, will obtain a speech consult. (5) Fall: Plan: Got out of bed on her own on 08/20 a.m. and fell and struck her head on the metal register as witnessed by environmental services Has a very minor abrasion on left upper back otherwise no injuries CT head negative PT/OT evaluation once condition improves. (6) UTI (urinary tract infection): Plan: Likely asymptomatic bacteriuria- urine culture with Enterococcus faecalis and Pseudomonas aeruginosa Discussed with ID-treating anyway with meropenem -con't meropenum (7) Iron deficiency anemia: Plan: Hemoglobin 9.3-9.9, iron studies show transferrin saturation very low at 5% B12 and folate normal Started oral iron supplement Does have hematuria microscopic-follow as an outpatient Consider GI workup if not done recently Heme is now 9 (8) Acute heart failure with preserved ejection fraction: Plan: Could possibly be due to previous salt tablets No significant leg edema to suggest right sided heart failure Echo from outpatient in 07/2024 shows EF 60-64%, moderate LVH, small posterior loculated pericardial effusion without tamponade Repeat echo here with preserved EF, no significant valvular disease UA with only trace protein, no prior liver problems and LFTs normal Diuresed over 3 L net negative. Converted IV Lasix to p.o. 20 mg daily on 08/19 Strict I&Os, daily weights, low-sodium diet Plan #Prolonged QT interval-QT difficult to interpret on EKG here even on repeat on 08/18 which shows paced rhythm atrial flutter. Appreciate cardiology consultation-historically when in sinus rhythm, she also had prolonged QT, hence they recommend avoiding QT prolonging agents #HTN -BPs normal, continue hydralazine, losartan, and Lasix, but discontinued Toprol-XL #pAfib/flutter- presence of Watchman hence no anticoagulation, permanent, appreciate cardiology consultation discontinue Toprol-XL due to shortness of breath #Hyponatremia-sodium 130 on arrival and now improved to 139 with diuresis-follow BMP #JG - CPAP HS once off vent #Recent hemorrhagic stroke-has repeat head CT as an outpatient scheduled for 09/05, follows with neurology. Repeat head CT here after fall in 08/20 and again on 08/21 negative for acute VTE Prophylaxis - SCDs, deferred chemical due to recent bloody LP Acute respiratory failure requiring intubation 2nd to Influenza A with multilobar PNA, s/p bronchoscopy on 08/23 Encephalopathy 2nd to influenza A Disposition -now in PCU Admission and Anticipated Discharge Date Admission Date: August 17, 2024 Subjective Patient awake, though not eating much. Physical Exam Physical Exam: Patient is more awake, says yes no Heart: RRR lungs: coarse breath sounds Abd: ND, soft extremities: no edema. Results & Data Results & Data Vital Signs (Past 12 Hours) Vital Signs Temp Pulse Pulse Resp BP BP BP 08/30/24 22:25 80 32 H 08/30/24 22:12 36.7 C 80 18 168/80 H 08/30/24 20:04 80 18 08/30/24 20:00 08/30/24 19:38 37.0 C 80 18 183/96 H 08/30/24 19:13 80 170/100 H 08/30/24 18:18 80 154/77 H 08/30/24 17:18 80 18 154/77 H 08/30/24 15:45 37.1 C 80 19 186/102 H 08/30/24 13:03 80 08/30/24 12:46 80 169/88 H 08/30/24 12:32 80 169/88 H 08/30/24 12:05 80 167/82 H 08/30/24 11:59 36.9 C 79 18 167/82 H Pulse Ox O2 Del Method O2 Flow Rate 08/30/24 22:25 96 4 08/30/24 22:12 97 CPAP 08/30/24 20:04 94 Nasal Cannula 4 08/30/24 20:00 Nasal Cannula 6 08/30/24 19:38 94 Nasal Cannula 4 08/30/24 19:13 08/30/24 18:18 08/30/24 17:18 95 Nasal Cannula 4 08/30/24 15:45 97 Oxymask 4 08/30/24 13:03 08/30/24 12:46 08/30/24 12:32 08/30/24 12:05 08/30/24 11:59 95 Oxymask 4 PG Care Time/CCT Total # of Minutes Spent Total Time Spent with Patient: Total time spent is greater than 50% in coordination of care (as documented) at patient's floor/unit and/or counseling patient: Coding Level of Care Code 22933 SUB INP/OBS CARE 3/50MIN Diagnoses Acute hypoxemic respiratory failure J96.01 Pneumonia J18.9 Influenza J11.1 Acute encephalopathy G93.40 Fall, initial encounter W19.XXXA Encounter type: initial encounter Urinary tract infection without hematuria, site unspecified N39.0 Hematuria presence: without hematuria Urinary tract infection type: site unspecified Iron deficiency anemia D50.9 Acute heart failure with preserved ejection fraction I50.31 (5) Fall Encounter type: initial encounter Qualified Code(s): W19.XXXA - Unspecified fall, initial encounter (6) UTI (urinary tract infection) Hematuria presence: without hematuria Urinary tract infection type: site unspecified Qualified Code(s): N39.0 - Urinary tract infection, site not specified
[2024-08-31 07:16] LABS: Hematocrit (blood only) 28.1 % (37.0-47.0); Hemoglobin 9.1 g/dl (12.0-16.0); Mean Corpuscular Hemoglobin 26.7 pg (25.0-34.0); Mean Corpuscular Hgb Conc 32.4 g/dL (32.0-36.0); Mean Corpuscular Volume 82.4 fL (80.0-100.0); Mean Platelet Volume 9.8 fL (9.4-12.4); Platelet Count 325 K/uL (130-400); RDW Coefficient of Variation 15.3 % (11.5-14.5); Red Blood Count 3.41 M/uL (4.20-5.40); White Blood Count 7.49 K/ul (4.8-10.8)
[2024-08-31 07:42] LABS: BUN Creatinine Ratio 43.5 (10-20); C Reactive Protein 2.92 mg/dl (0-0.5); Calcium 10.3 mg/dl (8.6-10.3); Creatinine Clr Calc Pharmacy 68.7 ml/min; Magnesium 1.6 mg/dl (1.7-2.4); Phosphorus 3.1 mg/dl (2.5-4.9); Potassium 3.3 mmol/L (3.5-5.1)
[2024-08-31] MEDS: POTASSIUM CHLORIDE / WTR 10 MEQ/100 ML PLCT IV SCH (13:21)
[2024-08-31] MEDS ORDERED: Nursing to Pharmacy Communication SCH (13:30)
[2024-08-31] MEDS: MAGNESIUM SULFATE / D5W 1 GM/100 ML BAG IV SCH (15:49)
--- NOTE | 2024-08-31 22:53 | Hospitalist Progress Note ---
Date of Service August 31, 2024 Assessment & Plan (1) Acute hypoxemic respiratory failure: Plan: This pt is a 74 yo female with a h/o ischemic CVA with hemorrhagic conversion s/p TNK, spontaneous ICH, HTN, PAF with pacer, DMII, muscular dystrophy, SIADH,who p/w worsening SOB and hypoxia. Found to be hypoxic on arrival and CT chest showed PNA. Initial BioFire neg for Influenza and everything else. #Pneumonia/Influenza A/ Acute respiratory failure with hypoxia---> 2/2 pneumonia and some component of acute on chronic HFpEF-with increasing BNP and CT with possible pulmonary edema. Procal negative on admission Pneumonia worse on CT from admission 08/[address] from 08/15 as an outpatient with increasing nodular opacities Consult pulmonology appreciated-added Cefepime and steroids Allergies and prolonged QT prevented addition of atypical coverage although her bio fire is negative for mycoplasma, Legionella urine antigen negative Appreciate ID consult-initially recommended continue cefepime only for now and if worsens or decompensates, consider bronchoscopy and adding Flagyl versus switching to meropenem. Could also consider desensitization to doxycycline if concern for atypical pneumonia. However, with worsening confusion on 08/20, switched cefepime to meropenem 08/22 developed fever, worsening hypoxia requiring 6LNC, became obtunded with ABG c/w acute resp alkalosis from sepsis. Repeat CXR shows worsening multifocal PNA. CT A/P with nodular infiltrates at lung bases but otherwise no acute issues. CT head with maxillary sinusitis. UA neg for infection. Procal neg. Biofire now POSITIVE for Influenza A ABG c/w acute respiratory alkalosis. SHe was intubated on 08/22 for being obtunded with severe encephalopathy. Had LP with no evidence of meningitis Bronchoscopy 08/23 showed multilobar PNA, BALs collected from bilateral lower lobes, no diffuse hemorrhage - extubated 08/27, will not reintubate -likely 2nd to influenza A -Continue meropenem and doxycycline for possible superimposed bacterial PNA -Continue bronchodilator nebs, continue inhaled fluticasone, umeclidinium/vi lanterol -follow up bronchoscopy culture results, still pending -critical care following: poor prognosis discussed with bookseamer blindstitch/ downgraded on 08/28 Now cleared to eat. However, oral intake does appear to be limited. overall prognosis appears to be poor espeically if patient continues poor oral intake. Patient with failure to thrive on 08/31, this may be due to encephalopathy secondary to antibiotics. Patient is now on 2 liters nasal cannula. No fevers for 5 days. Will stop antibiotics at this point. (2) Pneumonia: Plan: With increasing nodular opacities and groundglass opacities diffusely on CT, treatment noted as above -on Meropenem extend to 10 days (3) Influenza: Plan: no Tamiflu to be given due to case reports of prolonged QT (4) Acute encephalopathy: Plan: Patient with worsening confusion since hospitalization as per family members. She does have baseline moderate expressive aphasia and some cognitive deficits. She did have a fall in the a.m. of 08/20-repeat head CT negative for hemorrhage, no new focal neuro deficits Cefepime switched to meropenem in case cefepime causing worsening delirium She has not moved her bowels in at least 5 days-added on bisacodyl as needed, added on Senokot On the morning of 08/21 patient was even more lethargic and confused-repeat head CT again performed due to head trauma the day before and history of intracranial hemorrhage-negative 08/22 became obtunded as above, repeat CT head neg for acute. With Influenza A + most likely cause of delirium Continue supportive care, promote good sleep-wake cycles once off sedation Continue treating infection of pneumonia and influenza Continue supplemental O2 to keep pulse ox greater than 90%-currently on vent Encephalopathy likely 2nd to Influenza A Concern over her nutrition, given need for CPAP at night, she may not be compatible with NG tube feedings. Now that she is more awake, will obtain a speech consult. (5) Fall: Plan: Got out of bed on her own on 08/20 a.m. and fell and struck her head on the metal register as witnessed by environmental services Has a very minor abrasion on left upper back otherwise no injuries CT head negative PT/OT evaluation once condition improves. (6) UTI (urinary tract infection): Plan: Likely asymptomatic bacteriuria- urine culture with Enterococcus faecalis and Pseudomonas aeruginosa Discussed with ID-treating anyway with meropenem -con't meropenum (7) Iron deficiency anemia: Plan: Hemoglobin 9.3-9.9, iron studies show transferrin saturation very low at 5% B12 and folate normal Started oral iron supplement Does have hematuria microscopic-follow as an outpatient Consider GI workup if not done recently Heme is now 9 (8) Acute heart failure with preserved ejection fraction: Plan: Could possibly be due to previous salt tablets No significant leg edema to suggest right sided heart failure Echo from outpatient in 07/2024 shows EF 60-64%, moderate LVH, small posterior loculated pericardial effusion without tamponade Repeat echo here with preserved EF, no significant valvular disease UA with only trace protein, no prior liver problems and LFTs normal Diuresed over 3 L net negative. Converted IV Lasix to p.o. 20 mg daily on 08/19 Strict I&Os, daily weights, low-sodium diet Plan #Prolonged QT interval-QT difficult to interpret on EKG here even on repeat on 08/18 which shows paced rhythm atrial flutter. Appreciate cardiology consultation-historically when in sinus rhythm, she also had prolonged QT, hence they recommend avoiding QT prolonging agents #HTN -BPs normal, continue hydralazine, losartan, and Lasix, but discontinued Toprol-XL #pAfib/flutter- presence of Watchman hence no anticoagulation, permanent, appreciate cardiology consultation discontinue Toprol-XL due to shortness of breath #Hyponatremia-sodium 130 on arrival and now improved to 139 with diuresis-follow BMP #JG - CPAP HS once off vent #Recent hemorrhagic stroke-has repeat head CT as an outpatient scheduled for 09/05, follows with neurology. Repeat head CT here after fall in 08/20 and again on 08/21 negative for acute VTE Prophylaxis - SCDs, deferred chemical due to recent bloody LP Acute respiratory failure requiring intubation 2nd to Influenza A with multilobar PNA, s/p bronchoscopy on 08/23 Encephalopathy 2nd to influenza A Disposition -now in PCU Admission and Anticipated Discharge Date Admission Date: August 17, 2024 Subjective Patient is lethargic. Physical Exam Physical Exam: Patient is lethargic, says yes no Heart: RRR lungs: coarse breath sounds Abd: ND, soft extremities: no edema. Results & Data Results & Data Vital Signs (Past 12 Hours) Vital Signs Temp Pulse Pulse Resp BP BP BP 08/31/24 22:41 37.0 C 80 24 171/90 H 08/31/24 21:25 08/31/24 20:11 83 18 08/31/24 19:38 36.7 C 80 21 160/84 H 08/31/24 18:43 80 156/90 H 08/31/24 18:03 80 148/88 H 08/31/24 15:17 36.7 C 80 18 166/84 H 08/31/24 13:18 139/71 08/31/24 13:00 80 08/31/24 11:25 37.3 C 80 22 159/91 H Pulse Ox O2 Del Method O2 Flow Rate 08/31/24 22:41 94 Nasal Cannula 3 08/31/24 21:25 Nasal Cannula 3 08/31/24 20:11 92 Nasal Cannula 2 08/31/24 19:38 95 Nasal Cannula 3 08/31/24 18:43 08/31/24 18:03 08/31/24 15:17 97 Nasal Cannula 4 08/31/24 13:18 08/31/24 13:00 08/31/24 11:25 96 Nasal Cannula 4 PG Care Time/CCT Total # of Minutes Spent Total Time Spent with Patient: Total time spent is greater than 50% in coordination of care (as documented) at patient's floor/unit and/or counseling patient: Coding Level of Care Code 68599 SUB INP/OBS CARE 3/50MIN Diagnoses Acute hypoxemic respiratory failure J96.01 Pneumonia J18.9 Influenza J11.1 Acute encephalopathy G93.40 Fall, initial encounter W19.XXXA Encounter type: initial encounter Urinary tract infection without hematuria, site unspecified N39.0 Hematuria presence: without hematuria Urinary tract infection type: site unspecified Iron deficiency anemia D50.9 Acute heart failure with preserved ejection fraction I50.31 (5) Fall Encounter type: initial encounter Qualified Code(s): W19.XXXA - Unspecified fall, initial encounter (6) UTI (urinary tract infection) Hematuria presence: without hematuria Urinary tract infection type: site unspecified Qualified Code(s): N39.0 - Urinary tract infection, site not specified
[2024-09-01 07:08] LABS: Hematocrit (blood only) 30.4 % (37.0-47.0); Hemoglobin 9.7 g/dl (12.0-16.0); Mean Corpuscular Hemoglobin 26.6 pg (25.0-34.0); Mean Corpuscular Hgb Conc 31.9 g/dL (32.0-36.0); Mean Corpuscular Volume 83.3 fL (80.0-100.0); Mean Platelet Volume 9.5 fL (9.4-12.4); Platelet Count 336 K/uL (130-400); RDW Coefficient of Variation 15.4 % (11.5-14.5); RDW Standard Deviation 47.1 fL (36.4-46.3); Red Blood Count 3.65 M/uL (4.20-5.40); White Blood Count 8.17 K/ul (4.8-10.8)
[2024-09-01 07:36] LABS: BUN Creatinine Ratio 41.6 (10-20); C Reactive Protein 3.68 mg/dl (0-0.5); Calcium 10.5 mg/dl (8.6-10.3); Creatinine Clr Calc Pharmacy 55.4 ml/min
[2024-09-01] MEDS: ACETAMINOPHEN 325 MG TAB PO PRN (17:10)
--- NOTE | 2024-09-01 22:59 | Hospitalist Progress Note ---
Date of Service September 01, 2024 Assessment & Plan (1) Acute hypoxemic respiratory failure: Plan: This pt is a 74 yo female with a h/o ischemic CVA with hemorrhagic conversion s/p TNK, spontaneous ICH, HTN, PAF with pacer, DMII, muscular dystrophy, SIADH,who p/w worsening SOB and hypoxia. Found to be hypoxic on arrival and CT chest showed PNA. Initial BioFire neg for Influenza and everything else. #Pneumonia/Influenza A/ Acute respiratory failure with hypoxia---> 2/2 pneumonia and some component of acute on chronic HFpEF-with increasing BNP and CT with possible pulmonary edema. Procal negative on admission Pneumonia worse on CT from admission 08/[address] from 08/15 as an outpatient with increasing nodular opacities Consult pulmonology appreciated-added Cefepime and steroids Allergies and prolonged QT prevented addition of atypical coverage although her bio fire is negative for mycoplasma, Legionella urine antigen negative Appreciate ID consult-initially recommended continue cefepime only for now and if worsens or decompensates, consider bronchoscopy and adding Flagyl versus switching to meropenem. Could also consider desensitization to doxycycline if concern for atypical pneumonia. However, with worsening confusion on 08/20, switched cefepime to meropenem 08/22 developed fever, worsening hypoxia requiring 6LNC, became obtunded with ABG c/w acute resp alkalosis from sepsis. Repeat CXR shows worsening multifocal PNA. CT A/P with nodular infiltrates at lung bases but otherwise no acute issues. CT head with maxillary sinusitis. UA neg for infection. Procal neg. Biofire now POSITIVE for Influenza A ABG c/w acute respiratory alkalosis. SHe was intubated on 08/22 for being obtunded with severe encephalopathy. Had LP with no evidence of meningitis Bronchoscopy 08/23 showed multilobar PNA, BALs collected from bilateral lower lobes, no diffuse hemorrhage - extubated 08/27, will not reintubate -likely 2nd to influenza A -Continue meropenem and doxycycline for possible superimposed bacterial PNA -Continue bronchodilator nebs, continue inhaled fluticasone, umeclidinium/vi lanterol -follow up bronchoscopy culture results, still pending -critical care following: poor prognosis discussed with tricot knitter/ downgraded on 08/28 Now cleared to eat. However, oral intake does appear to be limited. overall prognosis appears to be poor espeically if patient continues poor oral intake. Patient with failure to thrive, this may be due to encephalopathy present since admission perhpas complicated by antibiotics/ intubation , severe illnesss. Patient is now on 3 liters nasal cannula. No fevers for 5 days. Stopped antibiotics on 08/31 consulted palliative care for goals of care discussion: wanted to know what they can offer in case of lack of improvement. (2) Pneumonia: Plan: With increasing nodular opacities and groundglass opacities diffusely on CT, treatment noted as above -on Meropenem sstopped on 08/31 completed over 10 days. (3) Influenza: Plan: no Tamiflu to be given due to case reports of prolonged QT (4) Acute encephalopathy: Plan: Patient with worsening confusion since hospitalization as per family members. She does have baseline moderate expressive aphasia and some cognitive deficits. She did have a fall in the a.m. of 08/20-repeat head CT negative for hemorrhage, no new focal neuro deficits Cefepime switched to meropenem in case cefepime causing worsening delirium She has not moved her bowels in at least 5 days-added on bisacodyl as needed, added on Senokot On the morning of 08/21 patient was even more lethargic and confused-repeat head CT again performed due to head trauma the day before and history of intracranial hemorrhage-negative 08/22 became obtunded as above, repeat CT head neg for acute. With Influenza A + most likely cause of delirium Continue supportive care, promote good sleep-wake cycles once off sedation Continue treating infection of pneumonia and influenza Continue supplemental O2 to keep pulse ox greater than 90%-currently on vent Encephalopathy likely 2nd to Influenza A Concern over her nutrition, given need for CPAP at night, she may not be compatible with NG tube feedings. Now that she is more awake, tolerating diet, but still oral intake remains limited. (5) Fall: Plan: Got out of bed on her own on 08/20 a.m. and fell and struck her head on the metal register as witnessed by environmental services Has a very minor abrasion on left upper back otherwise no injuries CT head negative PT/OT evaluation once condition improves. (6) UTI (urinary tract infection): Plan: Likely asymptomatic bacteriuria- urine culture with Enterococcus faecalis and Pseudomonas aeruginosa Discussed with ID-treating anyway with meropenem -completed meropenum (7) Iron deficiency anemia: Plan: Hemoglobin 9.3-9.9, iron studies show transferrin saturation very low at 5% B12 and folate normal Started oral iron supplement Does have hematuria microscopic-follow as an outpatient Consider GI workup if not done recently Heme is now 9.7 (8) Acute heart failure with preserved ejection fraction: Plan: Could possibly be due to previous salt tablets No significant leg edema to suggest right sided heart failure Echo from outpatient in 07/2024 shows EF 60-64%, moderate LVH, small posterior loculated pericardial effusion without tamponade Repeat echo here with preserved EF, no significant valvular disease UA with only trace protein, no prior liver problems and LFTs normal Diuresed over 3 L net negative. Converted IV Lasix to p.o. 20 mg daily on 08/19 Strict I&Os, daily weights, low-sodium diet Plan #Prolonged QT interval-QT difficult to interpret on EKG here even on repeat on 08/18 which shows paced rhythm atrial flutter. Appreciate cardiology consultation-historically when in sinus rhythm, she also had prolonged QT, hence they recommend avoiding QT prolonging agents #HTN -BPs normal, continue hydralazine, losartan, and Lasix, but discontinued Toprol-XL #pAfib/flutter- presence of Watchman hence no anticoagulation, permanent, appreciate cardiology consultation discontinue Toprol-XL due to shortness of breath #Hyponatremia-sodium 130 on arrival and now improved to 139 with diuresis-follow BMP #JG - CPAP HS once off vent #Recent hemorrhagic stroke-has repeat head CT as an outpatient scheduled for 09/05, follows with neurology. Repeat head CT here after fall in 08/20 and again on 08/21 negative for acute VTE Prophylaxis - SCDs, deferred chemical due to recent bloody LP Acute respiratory failure requiring intubation 2nd to Influenza A with multilobar PNA, s/p bronchoscopy on 08/23 Encephalopathy 2nd to influenza A Disposition -now in PCU Admission and Anticipated Discharge Date Admission Date: August 17, 2024 Subjective Patient is more awake, remains with aphasia. at [facility], reports she is eating but very little. He inquires about palliative care. Physical Exam Physical Exam: Patient is lethargic, says yes no Heart: RRR lungs: coarse breath sounds Abd: ND, soft extremities: no edema. Results & Data Results & Data Vital Signs (Past 12 Hours) Vital Signs Temp Pulse Pulse Resp BP BP BP 09/01/24 22:53 80 09/01/24 20:00 09/01/24 19:58 84 22 09/01/24 19:51 36.8 C 80 16 146/55 H 09/01/24 18:28 80 150/78 H 09/01/24 17:56 80 145/78 H 09/01/24 17:45 80 30 H 145/78 H 09/01/24 17:29 80 28 H 180/80 H 09/01/24 17:13 801 H 22 182/82 H 09/01/24 16:55 80 34 H 183/84 H 09/01/24 13:27 80 156/84 H 09/01/24 13:08 80 09/01/24 11:52 80 171/89 H 09/01/24 11:44 36.9 C 80 28 H 171/89 H Pulse Ox O2 Del Method O2 Flow Rate 09/01/24 22:53 09/01/24 20:00 Nasal Cannula, CPAP 4 09/01/24 19:58 96 Nasal Cannula 5 09/01/24 19:51 96 Nasal Cannula 4.0 09/01/24 18:28 09/01/24 17:56 09/01/24 17:45 91 Nasal Cannula 4 09/01/24 17:29 Nasal Cannula 4 09/01/24 17:13 92 Nasal Cannula 3 09/01/24 16:55 97 Oxymask 8 09/01/24 13:27 09/01/24 13:08 09/01/24 11:52 09/01/24 11:44 95 Nasal Cannula 3 PG Care Time/CCT Total # of Minutes Spent Total Time Spent with Patient: Total time spent is greater than 50% in coordination of care (as documented) at patient's floor/unit and/or counseling patient: Coding Level of Care Code 33771 SUB INP/OBS CARE 3/50MIN Diagnoses Acute hypoxemic respiratory failure J96.01 Pneumonia J18.9 Influenza J11.1 Acute encephalopathy G93.40 Fall, initial encounter W19.XXXA Encounter type: initial encounter Urinary tract infection without hematuria, site unspecified N39.0 Hematuria presence: without hematuria Urinary tract infection type: site unspecified Iron deficiency anemia D50.9 Acute heart failure with preserved ejection fraction I50.31 (5) Fall Encounter type: initial encounter Qualified Code(s): W19.XXXA - Unspecified fall, initial encounter (6) UTI (urinary tract infection) Hematuria presence: without hematuria Urinary tract infection type: site unspecified Qualified Code(s): N39.0 - Urinary tract infection, site not specified
[2024-09-02 07:55] LABS: Basophils # (auto) 0.02 K/uL (0.00-0.20); Basophils % (auto) 0.3 %; Eosinophils # (auto) 0.09 K/uL (0.00-0.50); Eosinophils % (auto) 1.3 %; Hematocrit (blood only) 26.9 % (37.0-47.0); Hemoglobin 8.5 g/dl (12.0-16.0); Immature Granulocytes # (auto) 0.05 K/uL (0.01-0.20); Immature Granulocytes % (auto) 0.7 %; Lymphocytes # (auto) 0.82 K/uL (1.20-3.40); Lymphocytes % (auto) 11.4 %; Mean Corpuscular Hemoglobin 26.8 pg (25.0-34.0); Mean Corpuscular Hgb Conc 31.6 g/dL (32.0-36.0); Mean Corpuscular Volume 84.9 fL (80.0-100.0); Monocytes # (auto) 0.35 K/uL (0.11-0.59); Monocytes % (auto) 4.9 %; Neutrophils # (auto) 5.84 K/uL (1.40-6.50); Neutrophils % (auto) 81.4 %; Platelet Count 344 K/uL (130-400); RDW Coefficient of Variation 15.3 % (11.5-14.5); RDW Standard Deviation 46.8 fL (36.4-46.3); Red Blood Count 3.17 M/uL (4.20-5.40); White Blood Count 7.17 K/ul (4.8-10.8)
[2024-09-02 08:14] LABS: BUN Creatinine Ratio 47.9 (10-20); C Reactive Protein 3.52 mg/dl (0-0.5); Calcium 10.3 mg/dl (8.6-10.3); Potassium 3.2 mmol/L (3.5-5.1)
[2024-09-02] MEDS: MULTI VIT W/MINERALS LIQUID 15 ML UDC PO SCH (08:49)
[2024-09-02] MEDS: POTASSIUM CHLORIDE / WTR 10 MEQ/100 ML PLCT IV SCH (09:57)
--- NOTE | 2024-09-02 11:32 | Palliative Care Consultation ---
Date of Consultation September 02, 2024 Assessment & Plan (1) Palliative care by specialist: (2) Counseling regarding advanced directives and goals of care: Plan Danielle Pulliam is a 74 year old female presents to the ER 08/17 with shortness of breath and hypertension, admission has been c/b progressive respiratory failure requiring JO x2; now extubated and DNR/DNI. Pt has a baseline expressive aphasia and on my assessment she did not make any attempt to communicate nor follow simple commands. Pt does require a proxy for medical decisions. Patient has exhibited current lack of decisional capacity based on the inability to convey understanding of personal PMHx, current medical condition, treatment options nor the risks / benefits of those options, and lack of ability to make decisions based on such knowledge. Hospital does not have written documentation of patient wishes concerning her chosen proxy for medical decisions. Per PA [id number], in absence of written documentation of patient wishes, pt's proxy for medical decisions would be her spouse Misbah Pulliam ([phone]). Phone contact made with pt's spouse, Misbah. Introduced Palliative Medicine and explained our role in advanced care planning, symptom management and navigation through the progression of life limiting disease. Misbah was receptive to palliative services for goals of care discussions. Misbah shared that he will be visiting with pt this evening and all day tomorrow. [facility] mtg scheduled with spouse for 09:00 on 09/03/24. Plan discussed with FAN OLIVA and attending. History of Present Illness Reason for Consultation: goals of care Requesting Physician: Anisa Guajardo MD Attending Physician: Anisa Guajardo MD History of Present Illness Danielle Pulliam is a 74 year old female presents to the ER 08/17 with shortness of breath and hypertension. She is followed by pulmonology and has home O2 used for BERMAN. Imaging of the chest with multifocal patchy areas of ground glass and a few regions of nodular opacity most consistent with atypical infectious process per radiological interpretation. Pt admitted for PNA, and had progressively increased oxygen requirements. Patient intubated 08/22/2024 due to hypoxemia and severe encephalopathy. She tested positive for influenza A. Tamiflu held given significant QTc prolo ngation and minimal ventilator settings. Pt was extubated on 08/24 but required reintubation same day due to ongoing respiratory failure. SHe was again extubated on 08/27 with transition to DNR/DNI. 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 Hospitalized at [facility] April 26, 2024 to April 30, 2024 with stroke-like symptoms attributed to dehydration, physiologic stress from UTI. Brain MRI with chronic findings. Chest x-ray revealed emphysema without acute process in the chest. Right apical nodular foci noted possibly representing scarring versus pulmonary nodule, new/progressed since February with radiology recommending three- month follow-up chest CT. Hospitalized at [facility] May 06, 2024 to May 20, 2024 after sustaining a witnessed ground level fall, tripping on her chair, without loss of consciousness, resultant distal left clavicular fracture and superior/inferior pubic ramus fracture. Palliative care consulted for assistance with GOC. Allergies Allergy/AdvReac Type Severity Reaction Status Date / Time Iodinated Contrast Media Allergy Intermediate Hives Verified 08/12/24 16:23 mold Allergy Intermediate SNEEZING/CO Verified 08/12/24 16:23 NGESTION moxifloxacin [From Avelox] Allergy Intermediate ITCHING/YEAST Verified 08/12/24 16:23 INFECTION Tetracyclines Allergy Intermediate ? ITCH ALL Verified 08/12/24 16:23 OVER, PT NOT SURE adhesive Allergy Mild ITCHY RASH Verified 08/12/24 16:23 Penicillins Allergy Rash Verified 08/12/24 16:23 Sulfa (Sulfonamide Allergy Swelling Verified 08/12/24 16:23 Antibiotics) of Lip/Tongue/Throat amlodipine AdvReac Intermediate FATIGUE/CON Verified 08/12/24 16:23 STIPATION cefuroxime AdvReac Intermediate CAUSED C. Verified 08/12/24 16:23 DIFF INFECTION lactose AdvReac Unknown Verified 08/29/24 12:41 Home Medications Medication Instructions Recorded Confirmed Type fluticasone propionate 50 2 spray intranasal DAILY PRN 04/13/22 08/17/24 History mcg/actuation nasal Allergy Symptoms spray,suspension (Flonase Allergy Relief) albuterol sulfate 90 mcg/actuation 2 puff inhalation Q4H PRN 10/25/22 08/17/24 Rx aerosol inhaler (Ventolin HFA) Shortness Of Breath #3 Inhalers fluticasone fur. 100 mcg-umeclid 1 inh inhalation DAILY #3 Inhalers 12/25/23 08/17/24 Rx 62.5 mcg-vilant 25 mcg inhalat.powder (Trelegy Ellipta) aspirin 81 mg chewable tablet 81 mg PO DAILY 02/07/24 08/17/24 History levetiracetam 500 mg tablet 500 mg PO BID 02/07/24 08/17/24 History (Keppra) multivitamin 1 tab PO DAILY 02/07/24 08/17/24 History folic acid 1 mg tablet 1 mg PO BID 04/26/24 08/17/24 History hydralazine 50 mg tablet 100 mg (2 x 50 mg) PO TID #90 tabs 05/21/24 08/17/24 Rx cholecalciferol (vitamin D3) 50 50 mcg PO DAILY 06/29/24 08/17/24 History mcg (2,000 unit) capsule magnesium oxide 400 mg (241.3 mg 400 mg PO QAM #0 tabs 07/01/24 08/17/24 Rx magnesium) tablet metoprolol succinate 50 mg 50 mg PO DAILY #30 tabs 07/01/24 08/17/24 Rx tablet,extended release 24 hr (Toprol XL) metformin 500 mg tablet 200 mg PO BID 08/12/24 08/17/24 History prednisone 50 mg tablet 50 mg PO DAILY #3 tabs 08/14/24 08/17/24 Rx olmesartan 40 mg tablet 40 mg PO DAILY 08/17/24 08/17/24 History Patient History Medical History Subarachnoid hemorrhage Acute intracerebral hemorrhage Shoulder pain, right Former smoker IBS (irritable bowel syndrome) Vitamin D deficiency History of small bowel obstruction (~2013) History of colon polyps History of skin cancer Antibiotic-induced yeast infection PRONE TO YEAST INFECTIONS WITH ANTIBIOTIC USE Seasonal allergies Lung nodules MONITORS Adrenal adenoma Carcinoid tumor of colon History of claustrophobia MILD Nasal cavity polyp Mild obstructive sleep apnea CPAP Chronic rhinitis Langerhans cell histiocytosis ? Gastroparesis DENIES GERD (gastroesophageal reflux disease) Surgical History History of surgery REMOTE HX FOR REMOVAL OF SKIN CA History of Mohs micrographic surgery for skin cancer History of lung biopsy H/O hysterectomy with oophorectomy S/P thoracotomy DENIES , REPORTS HX LUNG BIOPSY Hx of exploratory laparotomy HX BOWEL OBSTRUCTION S/P appendectomy H/O: hysterectomy TOTAL Family History Father Myocardial infarction Hypertension Mother Congestive heart failure Hypertension Grandfather (Paternal) Myocardial infarction Grandfather (Maternal) Myocardial infarction Grandmother Colorectal cancer Other Atrial fibrillation Family history of diabetes mellitus Social History Smoking Status: Never smoker Tobacco Type: Cigarettes Age Started Using Tobacco: 16; Age Quit Using Tobacco: 63; packs per day: 0.75; Second Hand Exposure: No; Do You Dip or Chew Tobacco: No; Hx Alcohol Use: Yes Alcohol type: wine Hx Substance Use: No Preferred Language: Vietnamese Communication Ability: Effective Welfare Analyst Required: No Beliefs That Will Affect Care: None marital status: Current Living Situation: Spouse current occupational status: retired Feels Safe at Home: Yes Seatbelt Use: always Sunscreen Use: Yes Assistive Devices: CPAP, Oxygen - Continuous and Walker Review of Systems Review of Systems: Unobtainable due to cognitive status Physical Exam Constitutional: + ill appearing, + thin, + altered menta l status and + lethargic Pt lying in bed, eyes open spontaneously, did not make effort to follow commands nor communicate. Eyes: PERRL, conjunctivae normal, anicteric sclerae Neck: trachea midline, no thyromegaly Respiratory: no respiratory distress lung sounds diminished bilaterally, scattered rhonchi noted Cardiovascular: Rate/Rhythm: regular rate and + tachycardic Heart Sounds: normal S1 and normal S2 Extremities: + edema Gastrointestinal (Abdomen): normal bowel sounds, soft, nontender, no hepatosplenomegaly Skin: + turgor decreased and + pallor Neurologic: moves all extremities eyes open spontaneously,does not make effort to follow commands / communicate Results & Data Vital Signs (Past 12 Hours) Vital Signs Temp Pulse Pulse Resp BP BP Pulse Ox 09/02/24 10:45 36.5 C 80 19 177/83 H 91 01/28/25 07:56 36.6 C 80 17 182/90 H 95 09/02/24 07:22 79 20 95 09/02/24 05:29 80 172/92 H 09/02/24 05:14 80 172/92 H 09/02/24 03:17 36.7 C 78 16 175/101 H 93 09/02/24 00:00 80 35 H 92 09/01/24 23:50 80 163/86 H O2 Del Method O2 Flow Rate 09/02/24 10:45 Nasal Cannula 2 09/02/24 07:56 Nasal Cannula 4 09/02/24 07:22 Nasal Cannula 4 09/02/24 05:29 09/02/24 05:14 09/02/24 03:17 Nasal Cannula 4.0 09/02/24 00:00 5 09/01/24 23:50 Laboratory Results Abnormal lab results 09/02/24 Range/Units 07:42 RBC 3.17 L (4.20-5.40) M/uL Hgb 8.5 L (12.0-16.0) g/dl Hct 26.9 L (37.0-47.0) % MCHC 31.6 L (32.0-36.0) g/dL RDW Std Deviation 46.8 H (36.4-46.3) fL RDW Coeff of Lion 15.3 H (11.5-14.5) % Lymph # (Auto) 0.82 L (1.20-3.40) K/uL Sodium 147 H (136-145) mmol/L Potassium 3.2 L (3.5-5.1) mmol/L Chloride 108 H (98-107) mmol/L Carbon Dioxide 33 H (21-32) mmol/L BUN 34 H (6-23) mg/dl BUN/Creatinine Ratio 47.9 H (10-20) C-Reactive Protein 3.52 H (0-0.5) mg/dl Diagnostic Findings Chest CTA 08/17/24 15:17 CT pulmonary angiogram with IV contrast History: Shortness of breath COMPARISON: 08/15/2024 TECHNIQUE: CT angiography of the chest was performed without IV contrast followed by IV contrast, including 3D post processing CTA image reconstruction. Dose reduction techniques were achieved by using automatic exposure control and/or adjustment of mA and/or kV according to patient size and/or use of iterative reconstruction technique. FINDINGS: Diagnostic quality: Adequate There is no evidence for pulmonary embolism. The heart is markedly enlarged. There is a left chest wall dual-lead AICD. Left atrial appendage Watchman device. Heavy coronary calcifications. There is a small pericardial effusion. There are no abnormally enlarged hilar or mediastinal lymph nodes. The central tracheobronchial tree is clear. Severe emphysema. Diffuse, multifocal areas of groundglass density, and mild scattered patchy nodular centrilobular densities in the periphery of both lung bases. Confluent atelectasis in the lingula in the anterior basilar left lower lobe, are likely postobstructive. There is no pleural effusion. Limited visualized upper abdomen. No destructive osseous changes are seen. IMPRESSION: No evidence for pulmonary embolism. Multifocal patchy areas of groundglass and a few regions of nodular opacity, most consistent with an atypical infectious process. The findings are significantly increased from 08/15/2024. There is also mild superimposed interstitial pulmonary edema. Note that the heart is significantly enlarged. There is a small pericardial effusion. Electronically signed by Rubén Langley 08-17-2024 4:27 PM Videofluoroscopic Swallow 08/20/24 09:30 FL video swallow CLINICAL HISTORY: 74 years-old Female with assess for aspiration. Dysphagia. TECHNIQUE: Video fluoroscopic evaluation of swallowing was performed in the AP and lateral projections by the speech pathology staff. The patient is fed varying consistencies of barium. FLUOROSCOPY TIME: 1.26 minutes. 2602 images were obtained. 6.81 mGy COMPARISON STUDY: CT chest 08/17/2024 FINDINGS: There is normal hyoid excursion and epiglottic deflection. No significant penetration or aspiration identified. Swallowing function is within normal limits however there is mild esophageal dysmotility. IMPRESSION: 1. No aspiration identified. 2. Please see the speech pathologist report for detailed findings and recommendations. ACT 112: Negative or not required by law. Electronically signed by: Maxwell Romero M.D. 08/20/2024 10:48 AM Abdomen/Pelvis CT 08/22/24 15:05 EXAMINATION: CT of the abdomen and pelvis performed without contrast TECHNIQUE: Helical CT images from the lung bases through the symphysis pubis were obtained without contrast. Coronal and sagittal reformatted images were generated at a workstation for further assessment. Dose reduction techniques were achieved by using automatic exposure control and/or adjustment of mA and/or kV according to patient size and/or use of iterative reconstruction technique. COMPARISON: 05/06/2024 HISTORY: Abdominal pain FINDINGS: Lower chest: Mild patchy bibasilar opacities seen in the lungs. There is mild bibasilar subsegmental atelectasis which is possibly postobstructive. The heart is enlarged. AICD leads are in place. Liver: There is a right hepatic lobe cyst. No suspicious liver lesions. Gallbladder: No gallstones. No evidence of acute cholecystitis. Spleen: Normal size. Pancreas: No suspicious pancreatic lesions. The pancreatic duct is not dilated. Adrenal glands: No adrenal nodules. Kidneys: No hydronephrosis or obstructing renal stones. Few, punctate bilateral nonobstructing renal stones. Bladder / Pelvic organs: Unremarkable. Bowel: No bowel obstruction. No abnormal bowel wall thickening. The appendix is not definitely well-seen. Sigmoid diverticulosis without diverticulitis. Lymph nodes: No retroperitoneal, mesenteric, or pelvic lymphadenopathy. Peritoneum / Retroperitoneum: No free fluid or air within the abdomen. Vessels: No infrarenal aortic aneurysm. Heavy aortoiliac calcification. Bones and soft tissues: No suspicious lesion in the bones. Healing callus and bony remodeling for known fractures of the left inferior and superior pubic rami. Left sacral insufficiency fracture. IMPRESSION: Mild patchy bibasilar opacities seen in the lower lungs, most consistent with an atypical infectious process. No evidence for an infectious process in the abdomen or pelvis. Electronically signed by Rubén Langley 08-22-2024 5:[address] 08/22/24 16:31 CT head without contrast History: Altered mental status Comparison: None Technique: Using multidetector thin collimation helical acquisition technique, axial, coronal and sagittal CT images from the skull base to the vertex were obtained without intravenous contrast. Dose reduction techniques were achieved by using automatic exposure control and/or adjustment of mA and/or kV according to patient size and/or use of iterative reconstruction technique. Findings: No intracranial hemorrhage, mass-effect, or midline shift. The ventricles are proportionate to the cerebral sulci. Chronic appearing infarct in the left parieto-occipital lobe, as well as chronic lacunar infarct in the right basal ganglia, otherwise the remaining wang to white matter differentiation of the cerebral hemispheres is preserved. The basal cisterns are patent. Small area/fluid level suggesting right maxillary sinusitis. Mastoid air cells are clear. Impression: No acute intracranial pathology. Scattered chronic infarcts are seen, as above. Electronically signed by Rubén Langley 08-22-2024 5:11 PM Chest X-Ray 08/29/24 06:00 EXAM: XR chest 1V portable CLINICAL HISTORY: INTUBATION SHREYA/JMT. TECHNIQUE: An X-ray image of the chest is obtained in 1 AP projection. COMPARISON: 08/28/2024 X-ray Chest. FINDINGS: Stable Right CVL in situ. Normopositioned left bicameral pacemaker. Pulmonary Parenchyma: Prominent bilateral alveolar opacities involving bilateral middle and right lower lung zone. Left lower lung zone and costophrenic angle obscured by cardiac shadow. No evidence of right pleural effusion or pleural thickening. Heart and Mediastinum: Cardiomegaly. No mediastinal widening or masses. No hilar or mediastinal lymphadenopathy. Bony Thorax: The bony thorax appears intact without fractures or deformities. Soft Tissues: Soft tissues overlying the chest wall are unremarkable. IMPRESSION: Mild increase in prominent bilateral alveolar opacities involving bilateral lungs respect the prior study. Correlate with clinical and follow-up. Electronically signed by Yas Jenkins 08-29-2024 07:58 AM Medications Administered Current Inpatient Medications Acetaminophen (Acetaminophen 325 Mg Tab) 650 mg PO Q4H PRN PRN Reason: Pain Stop: 09/21/24 08:07 Last Admin: 09/01/24 17:10 Dose: 650 mg Albuterol (Albut/Ipratrop 3mg/0.5mg Neb 3 Ml Vial) 3 ml NEB Q6R PRN; Protocol PRN Reason: Shortness of breath, wheezing Stop: 09/17/24 07:17 Last Admin: 08/30/24 01:55 Dose: 3 ml Aspirin (Aspirin 81 Mg Chew) 81 mg PO DAILY DOREEN Stop: 09/17/24 08:59 Last Admin: 09/02/24 07:30 Dose: 81 mg Bisacodyl (Bisacodyl 10 Mg Supp) [address] DAILY PRN PRN Reason: Constipation Stop: 09/22/24 07:40 Enoxaparin Sodium (Enoxaparin Inj 40 Mg/0.4 Ml Syr) 40 mg SQ QAM DOREEN Stop: 09/24/24 10:59 Last Admin: 09/02/24 08:49 Dose: 40 mg Ferrous Sulfate (Ferrous Sulfate 325 Mg Tab) 325 mg PO BIDM [facility] Stop: 09/19/24 16:59 Last Admin: 09/02/24 07:30 Dose: 325 mg Folic Acid (Folic Acid 1 Mg Tab) 1 mg PO BID DOREEN Stop: 09/16/24 20:59 Last Admin: 09/02/24 11:22 Dose: 1 mg Formoterol Fumarate (Formoterol 20 Mcg/2 Ml Vial) 20 mcg NEB BIDR DOREEN Stop: 09/17/24 18:59 Last Admin: 09/02/24 07:15 Dose: 20 mcg Hydralazine HCl (Hydralazine Hcl 20 Mg/Ml Vial) 10 mg IV Q4H PRN PRN Reason: SBP > 180 and/or DBP >90 Stop: 09/26/24 18:23 Last Admin: 08/30/24 16:18 Dose: 10 mg Pantoprazole Sodium (Protonix) 40 mg in 10 mls @ 5 mls/min IV BID [facility] Stop: 09/24/24 08:59 Last Admin: 09/02/24 08:49 Dose: 5 mls/min Potassium Chloride (K Gary / Wtr) 10 meq in 100 mls @ 100 mls/hr IV Q1H [facility] Stop: 09/02/24 13:14 Last Admin: 09/02/24 11:29 Dose: 80 mls/hr Levetiracetam (Levetiracetam 500 Mg Tab) 500 mg PO BID [facility] Stop: 09/16/24 20:59 Last Admin: 08/22/24 09:58 Dose: 500 mg Levetiracetam (Levetiracetam 500 Mg/5 Ml Vial) 500 mg IV Q12H [facility] Stop: 09/21/24 20:59 Last Admin: 09/02/24 08:49 Dose: 500 mg Losartan Potassium (Losartan Potassium 50 Mg Tab) 100 mg PO DAILY [facility]; Protocol Stop: 09/17/24 08:59 Last Admin: 09/02/24 11:22 Dose: 100 mg Melatonin (Melatonin 3 Mg Tab) 3 mg PO HS PRN PRN Reason: Sleep Stop: 09/19/24 00:55 Metoprolol Tartrate (Metoprolol Tartrate 1 Mg/Ml Vial) 10 mg IV Q6 [facility] Stop: 09/27/24 11:59 Last Admin: 09/02/24 11:31 Dose: 10 mg Multivitamins/Minerals (Multi Vit W/Minerals Liquid 15 Ml Udc) 15 ml PO QAM [facility] Stop: 10/02/24 08:59 Last Admin: 09/02/24 08:49 Dose: 15 ml PG Care Time/CCT Total # of Minutes Spent Total Time Spent with Patient: Total time spent is greater than 50% in coordination of care (as documented) at patient's floor/unit and/or counseling patient: [place] [address] IN/OBS CONSULT LVL 4,60M Patient Type New History Problem Focused Exam Problem Focused Medical Decision Making Low Complexity Diagnoses Palliative care by specialist Z51.5 Counseling regarding advanced directives and goals of care Z71.89
--- NOTE | 2024-09-02 13:22 | Hospitalist Progress Note ---
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 Found to be hypoxic on arrival and CT chest showed PNA. Initial BioFire neg for Influenza and everything else. She then developed a severe encephalopathy and worsening respiratory failure, fever, and tested positive for influenza A. 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 She has since been extubated and is slowly improving with her encephalopathy, respiratory failure, pneumonia, and ability to take p.o. #Acute respiratory failure with hypoxia requiring intubation 2nd to Influenza A with multilobar PNA, s/p bronchoscopy on 08/23- Procal negative on admission and initial BioFire negative, but 5 days in her hospital stay, spiked a fever and became encephalopathic-repeat BioFire was positive for influenza A. Pneumonia worse on CT from admission 08/[address] from 08/15 as an outpatient with increasing nodular opacities Consult pulmonology appreciated-added Cefepime and steroids, recommended ID consult Allergies and prolonged QT prevented addition of atypical coverage although her bio fire was negative for mycoplasma, and Legionella urine antigen negative Appreciate ID consult-switched cefepime to meropenem due to encephalopathy She was intubated on 08/22 for being obtunded with severe encephalopathy. Had LP with no evidence of meningitis and she was started on doxycycline with no allergic reaction Bronchoscopy 08/23 showed multilobar PNA, BALs collected from bilateral lower lobes, no diffuse hemorrhage-all cultures were negative. She was extubated 08/27, will not reintubate She finished out a course of meropenem and doxycycline -Continue bronchodilator nebs, continue inhaled fluticasone, umeclidinium /vilanterol -She is slowly advancing her diet-appreciate speech consultation -Continue to wean off O2 -Check chest x-ray in the morning and follow to resolution -Continue CPAP at night -Follow CBC, BMP, magnesium-replace potassium for hypokalemia #Acute Encephalopathy 2nd to influenza A: Developed worsening confusion about 2 to 3 days into her hospitalization- does have baseline moderate expressive aphasia and some cognitive deficits. She had a fall in the a.m. of 08/20-repeat head CT negative for hemorrhage, no new focal neuro deficits. Cefepime switched to meropenem in case cefepime causing worsening delirium but had no improvement. She had constipation which was treated and resolved and had no improvement. She tested positive for influenza A and had severe encephalopathy worsening. CSF was obtained through LP and was negative for infection She is definitely improved since the time she was intubated, however is definitely not back at her baseline mentation -Continue supportive care, promote good sleep-wake cycles -Continue supplemental O2 to keep pulse ox greater than 90% -Continue to ensure bowels are moving, oral intake improves, and electrolyte abnormalities are corrected #Fall: Got out of bed on her own on 08/20 a.m. and fell and struck her head on the metal register as witnessed by environmental services Has a very minor abrasion on left upper back otherwise no injuries CT head negative PT/OT evaluation reordered on 09/02 #Asymptomatic bacteriuria- urine culture with Enterococcus faecalis and Pseudomonas aeruginosa Discussed with ID-was treated anyway with meropenem Arevalo catheter remains in place-plan to remove in the next day or so #Iron deficiency anemia: Hemoglobin 9.3-9.9, iron studies show transferrin saturation very low at 5%. B12 and folate normal, Started oral iron supplement. Does have hematuria microscopic-follow as an outpatient Consider GI workup if not done recently. Hgb slightly dropped to 8.5 -Follow CBC -Continue ferrous sulfate twice daily #Acute HFpEF-Could possibly be due to previous salt tablets that she was on, however no significant leg edema to suggest right sided heart failure. Echo from outpatient in 07/2024 shows EF 60-64%, moderate LVH, small posterior loculated pericardial effusion without tamponade. Repeat echo here with preserved EF, no significant valvular disease. UA with only trace protein, no prior liver problems and LFTs normal Diuresed over 3 L net negative initially with IV Lasix. Converted IV Lasix to p.o. 20 mg daily on 08/19 -Continue strict I&Os, daily weights, low-sodium diet -Continue to hold Lasix until has improved p.o. intake #Prolonged QT interval-QT difficult to interpret on EKG here even on repeat on 08/18 which shows paced rhythm atrial flutter. Appreciate cardiology consultation-historically when in sinus rhythm, she also had prolonged QT, hence they recommend avoiding QT prolonging agents #HTN -BPs quite elevated. She has been off of her oral medications since she was intubated for the most part -Resume home losartan and p.o. metoprolol, DC scheduled IV Lopressor -Continue to hold Lasix and hydralazine from home and add back as needed #pAfib/flutter- presence of Watchman hence no anticoagulation, permanent, appreciate cardiology consultation-earlier did recommend to discontinue Toprol- XL due to shortness of breath but has since been on IV Lopressor for rate control #Hyponatremia/hypernatremia-sodium 130 on arrival and now elevated at 147 due to poor p.o. intake -Continue to follow BMP and add D5W if remains hypernatremic #JG -continue CPAP HS #Recent hemorrhagic stroke-had multiple repeat head CTs during this admission which were negative for recurrent hemorrhagic stroke. Follows with neurology. VTE Prophylaxis - SCDs, Lovenox SQ Disposition -continued stay on PCU, discussed care with palliative medicine, clayton carcamo improvements, will likely need SNF placement Admission and Anticipated Discharge Date Admission Date: August 17, 2024 Subjective Patient much more awake and alert than when I last saw her 8 days prior. She denies pain or shortness of breath. She is on 4 L nasal cannula. Nursing reports she did eat more for lunch today than she has in the previous week. She was not able to tell me where she was. Telemetry with atrial fibrillation with rates in the 80s to 90s I discussed her care with palliative medicine nurse practitioner Physical Exam Constitutional: well developed; no acute distress Eyes: + anicteric sclerae Respiratory: Auscultation: + crackles (Left base); no rhonchi and no wheezes Cardiovascular: Rate/Rhythm: regular rate and regular rhythm Extremities: no edema Gastrointestinal (Abdomen): normal bowel sounds, soft, nontender, no hepatosplenomegaly Neurologic: moves all extremities, awake and + confused Psychiatric: Orientation: + not oriented to place and + not oriented to time Genitourinary: + abnormal external appearance (Arevalo ca theter in place) Results & Data Results & Data Vital Signs (Past 12 Hours) Vital Signs Temp Pulse Pulse Resp BP BP Pulse Ox 09/02/24 12:55 165/114 H 09/02/24 12:11 80 180/98 H 09/02/24 11:31 80 161/93 H 09/02/24 10:45 36.5 C 80 19 177/83 H 91 09/02/24 07:56 36.6 C 80 17 182/90 H 95 09/02/24 07:22 79 20 95 09/02/24 05:29 80 172/92 H 09/02/24 05:14 80 172/92 H 09/02/24 03:17 36.7 C 78 16 175/101 H 93 O2 Del Method O2 Flow Rate 09/02/24 12:55 09/02/24 12:11 09/02/24 11:31 09/02/24 10:45 Nasal Cannula 2 09/02/24 07:56 Nasal Cannula 4 09/02/24 07:22 Nasal Cannula 4 09/02/24 05:29 09/02/24 05:14 09/02/24 03:17 Nasal Cannula 4.0 Laboratory Results CBC, BMP, procalcitonin, CRP reviewed PG Care Time/CCT Total # of Minutes Spent Total Time Spent with Patient: Total time spent is greater than 50% in coordination of care (as documented) at patient's floor/unit and/or counseling patient: Coding Level of Care Code 30388 SUB INP/OBS CARE 3/50MIN Diagnoses Acute hypoxemic respiratory failure J96.01 Pneumonia J18.9 Influenza J11.1 Acute encephalopathy G93.40
[2024-09-02] MEDS: METOPROLOL SUCC 50MG EXT REL TAB PO SCH (14:04)
[2024-09-03 06:49] LABS: Basophils # (auto) 0.04 K/uL (0.00-0.20); Basophils % (auto) 0.5 %; Eosinophils # (auto) 0.08 K/uL (0.00-0.50); Eosinophils % (auto) 1.1 %; Hemoglobin 9.6 g/dl (12.0-16.0); Immature Granulocytes # (auto) 0.06 K/uL (0.01-0.20); Immature Granulocytes % (auto) 0.8 %; Lymphocytes # (auto) 1.17 K/uL (1.20-3.40); Mean Corpuscular Hemoglobin 26.6 pg (25.0-34.0); Mean Corpuscular Volume 83.1 fL (80.0-100.0); Mean Platelet Volume 10.1 fL (9.4-12.4); Monocytes # (auto) 0.45 K/uL (0.11-0.59); Monocytes % (auto) 6.2 %; Neutrophils % (auto) 75.4 %; Platelet Count 366 K/uL (130-400); RDW Coefficient of Variation 15.3 % (11.5-14.5); RDW Standard Deviation 46.6 fL (36.4-46.3); Red Blood Count 3.61 M/uL (4.20-5.40)
[2024-09-03 07:05] LABS: Albumin Level 3.3 gm/dl (3.4-5.0); Bilirubin,Total 0.8 mg/dl (0.2-1.0); Calcium 10.6 mg/dl (8.6-10.3); Magnesium 1.6 mg/dl (1.7-2.4); Potassium 3.8 mmol/L (3.5-5.1)
[2024-09-03 07:11] LABS: Albumin Globulin Ratio 0.8 (0.9-2); BUN Creatinine Ratio 45.7 (10-20); Creatinine Clr Calc Pharmacy 60.9 ml/min; Total Protein 7.3 gm/dl (6.0-8.3)
--- NOTE | 2024-09-03 08:06 | XRay Report ---
EXAM: XR chest 1V portable CLINICAL HISTORY: F/U KAB SJB TECHNIQUE: An X-ray image of the chest is obtained in AP projection. COMPARISON: Prior study dated 08/29/2024. FINDINGS: Right CVL removed. Pulmonary Parenchyma: Prominent bilateral alveolar opacities involving bilateral middle and right lower lung zone. Left lower lung zone and costophrenic angle obscured by cardiac shadow. Blunting of right costophrenic angles Heart and Mediastinum: Cardiomegaly. ICD device seen No mediastinal widening or masses. No hilar or mediastinal lymphadenopathy. Bony Thorax: The bony thorax appears intact without fractures or deformities. Soft Tissues: Soft tissues overlying the chest wall are unremarkable. IMPRESSION: 1. Right CVL removed. 2. Prominent bilateral alveolar opacities involving bilateral middle and right lower lung zone. (stable) 3. Left lower lung zone and costophrenic angle obscured by cardiac shadow. (stable) 4. Blunting of right costophrenic angles (new finding) 5. Cardiomegaly. (stable) 6. ICD device seen (stable) Electronically signed by Yas Jenkins 09-03-2024 08:06 AM
[2024-09-03] MEDS: MAGNESIUM SULFATE / D5W 1 GM/100 ML BAG IV SCH (08:54)
[2024-09-03] MEDS: hydrALAZINE HCL 25 MG TAB PO SCH (10:16)
--- NOTE | 2024-09-03 10:33 | Palliative Care Progress Note ---
Date of Service September 03, 2024 Assessment & Plan (1) Palliative care by specialist: (2) Counseling regarding advanced directives and goals of care: (3) Encounter for hospice care discussion: Plan Danielle Pulliam is a 74 year old female presents to the ER 08/17 with shortn ess of breath and hypertension, admission has been c/b progressive respiratory failure requiring JO x2; now extubated and DNR/DNI. Pt has a baseline expressive aphasia and on my assessment she did not make any attempt to communicate nor follow simple commands. Plan: Spouse would like to continue current level of care at this time, with plan for discharge to SNF for hospice care upon discharge. He does request that we begin process of SNF placement without delay, case management aware. ACP meeting summary: Met with pt's spouse Misbah at bedside for scheduled [facility] meeting from 09:00 - 09:40. Introduced Palliative Medicine and explained our role in advanced care planning, symptom management and navigation through the progression of life limiting disease. Misbah remains receptive to palliative services for goals of care discussions. Reviewed we are different from hospice, a home health nurse visiting service. Helped Misbah understand that Pt does require a proxy for medical decisions. Patient has exhibited current lack of decisional capacity based on the inability to convey understanding of personal PMHx, current medical condition, treatment options nor the risks / benefits of those options, and lack of ability to make decisions based on such knowledge. Hospital does not have written d ocumentation of patient wishes concerning her chosen proxy for medical decisions. Per PA [id number], in absence of written documentation of patient wishes, pt's proxy for medical decisions would be her spouse Misbah Pulliam. Misbah expressed concern that he has not seen improvement in the pt's cognitive or functional ability since admission. He shared concern that in her given state he will not be able to care for her properly at home and that this is not fitting with what his would consider an acceptable quality of life. He shared that he would like her to be evaluated for possible SNF placement after discharge and that he wants to focus on "just making sure she is comfortable and does not suffer in what time she has left". We discussed options of continuing current level of care including likely feeding tube placement and SNF with unlikely cognitive/functional recovery vs transition to comfort directed care. Misbah expressed that he has "come to realize she will not improve to the point of returning to a life she would want" and requests transition to hospice care once pt is discharged to SNF. Discussed hospice benefit: an interdisciplinary program offered by nurses, nurses aides, social workers, chaplains and a biomedical engineering aide for patients with a terminal condition and a life expectancy of less than 6 months. This is covered by Medicare at 100%/no out of pocket expense to patient and all meds/supplies needed by patient for the reason they are on hospice are paid for/covered by hospice. The goal is assure quality of life of the patient in the ir home setting (home, snf, inpatient hospice setting) by providing symptoms management, psychosocial and spiritual support. However, they cannot offer 24 hours care and if the family is unable to provide that care, they will have to consider personal care with out of pocket cost vs. snf placement. We discussed the goals of hospice as a patient service and the goals of care; we discussed EOL trajectories and transitions eugene the emotional impact of realizing mortality as a concrete reality from prior abstract considerations. Pt was reassured that no matter where they are along this trajectory, they are not alone - their medical team will remain by their side through their journey. Discussed the pros/cons of accepting help when especially weakened and distressed by pain-which would also help provide relief/decrease caregiver burden/strain. Anticipatory guidance offered. Discussed changes pt may move through in the dying process including but not limited to sleeping more, disorientation when awake, restlessness, diminished senses/inability to respond to stimulus although ability to be aware of them remains intact longer, and changes in body temperatures, skin changes/mottling/cyanosis, respiratory pattern changes, and oral secretions. Family verbalized understanding. The goal is to assure a peaceful . Discussed possible transition to [employer] at this time, Misbah shared that he would need to discuss this with other family members. He reinforced desire for discharge to SNF with hospice when pt medically cleared for Dc, but requests current level of care continue for now. Misbah will discuss further with additional family members tonight, we agreed to revisit discussion tomorrow morning. Plan of care discussed with HAZEL, Dr Guajardo (attdg) and CM. Admission and Anticipated Discharge Date Admission Date: August 17, 2024 Subjective Assessed pt at bedside, she remains awake, with eyes open spontaneously. She again made no attempt to follow commands nor communicate with me. BSRN reports intermittent vocalization to yes/no questions. Review of Systems Review of Systems: Unobtainable due to cognitive status Physical Exam Constitutional: + ill appearing, + thin, + altered menta l status and + lethargic Pt lying in bed, eyes open spontaneously, did not make effort to follow commands nor communicate. Eyes: PERRL, conjunctivae normal, anicteric sclerae Neck: trachea midline, no thyromegaly Respiratory: no respiratory distress lung sounds diminished bilaterally, scattered rhonchi noted Cardiovascular: Rate/Rhythm: regular rate and + tachycardic Heart Sounds: normal S1 and normal S2 Extremities: + edema Gastrointestinal (Abdomen): normal bowel sounds, soft, nontender, no hepatosplenomegaly Skin: + turgor decreased and + pallor Neurologic: moves all extremities eyes open spontaneously,does not make effort to follow commands / communicate Results & Data Vital Signs (Past 12 Hours) Vital Signs Temp Pulse Pulse Resp BP Pulse Ox O2 Del Method 09/03/24 07:15 37.1 C 80 24 164/73 H 91 Nasal Cannula 09/03/24 06:57 80 18 98 Nasal Cannula 09/03/24 03:50 36.8 C 68 18 187/64 H 92 BiPAP 09/03/24 03:32 82 34 H 96 09/02/24 23:36 80 09/02/24 22:56 36.9 C 80 24 170/87 H 95 CPAP 09/02/24 22:37 79 28 H 94 O2 Flow Rate 09/03/24 07:15 3.0 09/03/24 06:57 3.5 09/03/24 03:50 09/03/24 03:32 4 09/02/24 23:36 09/02/24 22:56 4 09/02/24 22:37 4 Laboratory Results Abnormal lab results 09/03/24 Range/Units 06:20 RBC 3.61 L (4.20-5.40) M/uL Hgb 9.6 L (12.0-16.0) g/dl Hct 30.0 L (37.0-47.0) % RDW Std Deviation 46.6 H (36.4-46.3) fL RDW Coeff of Lion 15.3 H (11.5-14.5) % Lymph # (Auto) 1.17 L (1.20-3.40) K/uL BUN 32 H (6-23) mg/dl BUN/Creatinine Ratio 45.7 H (10-20) Calcium 10.6 H (8.6-10.3) mg/dl Magnesium 1.6 L (1.7-2.4) mg/dl Albumin 3.3 L (3.4-5.0) gm/dl Albumin/Globulin Ratio 0.8 L (0.9-2) Diagnostic Findings Chest CTA 08/17/24 15:17 CT pulmonary angiogram with IV contrast History: Shortness of breath COMPARISON: 08/15/2024 TECHNIQUE: CT angiography of the chest was performed without IV contrast followed by IV contrast, including 3D post processing CTA image reconstruction. Dose reduction techniques were achieved by using automatic exposure control and/or adjustment of mA and/or kV according to patient size and/or use of iterative reconstruction technique. FINDINGS: Diagnostic quality: Adequate There is no evidence for pulmonary embolism. The heart is markedly enlarged. There is a left chest wall dual-lead AICD. Left atrial appendage Watchman device. Heavy coronary calcifications. There is a small pericardial effusion. There are no abnormally enlarged hilar or mediastinal lymph nodes. The central tracheobronchial tree is clear. Severe emphysema. Diffuse, multifocal areas of groundglass density, and mild scattered patchy nodular centrilobular densities in the periphery of both lung bases. Confluent atelectasis in the lingula in the anterior basilar left lower lobe, are likely postobstructive. There is no pleural effusion. Limited visualized upper abdomen. No destructive osseous changes are seen. IMPRESSION: No evidence for pulmonary embolism. Multifocal patchy areas of groundglass and a few regions of nodular opacity, most consistent with an atypical infectious process. The findings are significantly increased from 08/15/2024. There is also mild superimposed interstitial pulmonary edema. Note that the heart is significantly enlarged. There is a small pericardial effusion. Electronically signed by Rubén Langley 08-17-2024 4:27 PM Videofluoroscopic Swallow 08/20/24 09:30 FL video swallow CLINICAL HISTORY: 74 years-old Female with assess for aspiration. Dysphagia. TECHNIQUE: Video fluoroscopic evaluation of swallowing was performed in the AP and lateral projections by the speech pathology staff. The patient is fed varyi ng consistencies of barium. FLUOROSCOPY TIME: 1.26 minutes. 2602 images were obtained. 6.81 mGy COMPARISON STUDY: CT chest 08/17/2024 FINDINGS: There is normal hyoid excursion and epiglottic deflection. No significant penetration or aspiration identified. Swallowing function is within normal limits however there is mild esophageal dysmotility. IMPRESSION: 1. No aspiration identified. 2. Please see the speech pathologist report for detailed findings and recommendations. ACT 112: Negative or not required by law. Electronically signed by: Maxwell Romero M.D. 08/20/2024 10:48 AM Abdomen/Pelvis CT 08/22/24 15:05 EXAMINATION: CT of the abdomen and pelvis performed without contrast TECHNIQUE: Helical CT images from the lung bases through the symphysis pubis were obtained without contrast. Coronal and sagittal reformatted images were generated at a workstation for further assessment. Dose reduction techniques were achieved by using automatic exposure control and/or adjustment of mA and/or kV according to patient size and/or use of iterative reconstruction technique. COMPARISON: 05/06/2024 HISTORY: Abdominal pain FINDINGS: Lower chest: Mild patchy bibasilar opacities seen in the lungs. There is mild bibasilar subsegmental atelectasis which is possibly postobstructive. The heart is enlarged. AICD leads are in place. Liver: There is a right hepatic lobe cyst. No suspicious liver lesions. Gallbladder: No gallstones. No evidence of acute cholecystitis. Spleen: Normal size. Pancreas: No suspicious pancreatic lesions. The pancreatic duct is not dilated. Adrenal glands: No adrenal nodules. Kidneys: No hydronephrosis or obstructing renal stones. Few, punctate bilateral nonobstructing renal stones. Bladder / Pelvic organs: Unremarkable. Bowel: No bowel obstruction. No abnormal bowel wall thickening. The appendix is not definitely well-seen. Sigmoid diverticulosis without diverticulitis. Lymph nodes: No retroperitoneal, mesenteric, or pelvic lymphadenopathy. Peritoneum / Retroperitoneum: No free fluid or air within the abdomen. Vessels: No infrarenal aortic aneurysm. Heavy aortoiliac calcification. Bones and soft tissues: No suspicious lesion in the bones. Healing callus and bony remodeling for known fractures of the left inferior and superior pubic rami. Left sacral insufficiency fracture. IMPRESSION: Mild patchy bibasilar opacities seen in the lower lungs, most consistent with an atypical infectious process. No evidence for an infectious process in the abdomen or pelvis. Electronically signed by Rubén Langley 08-22-2024 5:[address] 08/22/24 16:31 CT head without contrast History: Altered mental status Comparison: None Technique: Using multidetector thin collimation helical acquisition technique, axial, coronal and sagittal CT images from the skull base to the vertex were obtained without intravenous contrast. Dose reduction techniques were achieved by using automatic exposure control and/or adjustment of mA and/or kV according to patient size and/or use of iterative reconstruction technique. Findings: No intracranial hemorrhage, mass-effect, or midline shift. The ventricles are proportionate to the cerebral sulci. Chronic appearing infarct in the left parieto-occipital lobe, as well as chronic lacunar infarct in the right basal ganglia, otherwise the remaining wang to white matter differentiation of the cerebral hemispheres is preserved. The basal cisterns are patent. Small area/fluid level suggesting right maxillary sinusitis. Mastoid air cells are clear. Impression: No acute intracranial pathology. Scattered chronic infarcts are seen, as above. Electronically signed by Rubén Langley 08-22-2024 5:11 PM Chest X-Ray 09/03/24 07:00 EXAM: XR chest 1V portable CLINICAL HISTORY: F/U KAB SJB TECHNIQUE: An X-ray image of the chest is obtained in AP projection. COMPARISON: Prior study dated 08/29/2024. FINDINGS: Right CVL removed. Pulmonary Parenchyma: Prominent bilateral alveolar opacities involving bilateral middle and right lower lung zone. Left lower lung zone and costophrenic angle obscured by cardiac shadow. Blunting of right costophrenic angles Heart and Mediastinum: Cardiomegaly. ICD device seen No mediastinal widening or masses. No hilar or mediastinal lymphadenopathy. Bony Thorax: The bony thorax appears intact without fractures or deformities. Soft Tissues: Soft tissues overlying the chest wall are unremarkable. IMPRESSION: 1. Right CVL removed. 2. Prominent bilateral alveolar opacities involving bilateral middle and right lower lung zone. (stable) 3. Left lower lung zone and costophrenic angle obscured by cardiac shadow. (stable) 4. Blunting of right costophrenic angles (new finding) 5. Cardiomegaly. (stable) 6. ICD device seen (stable) Electronically signed by Yas Jenkins 09-03-2024 08:06 AM Medications Administered Current Inpatient Medications Acetaminophen (Acetaminophen 325 Mg Tab) 650 mg PO Q4H PRN PRN Reason: Pain Stop: 09/21/24 08:07 Last Admin: 09/01/24 17:10 Dose: 650 mg Albuterol (Albut/Ipratrop 3mg/0.5mg Neb 3 Ml Vial) 3 ml NEB Q6R PRN; Protocol PRN Reason: Shortness of breath, wheezing Stop: 09/17/24 07:17 Last Admin: 08/30/24 01:55 Dose: 3 ml Aspirin (Aspirin 81 Mg Chew) 81 mg PO DAILY [facility] Stop: 09/17/24 08:59 Last Admin: 09/03/24 10:15 Dose: 81 mg Bisacodyl (Bisacodyl 10 Mg Supp) 10 mg ID DAILY PRN PRN Reason: Constipation Stop: 09/22/24 07:40 Enoxaparin Sodium (Enoxaparin Inj 40 Mg/0.4 Ml Syr) 40 mg SQ QAM [facility] Stop: 09/24/24 10:59 Last Admin: 09/03/24 10:17 Dose: 40 mg Ferrous Sulfate (Ferrous Sulfate 325 Mg Tab) 325 mg PO BIDM [facility] Stop: 09/19/24 16:59 Last Admin: 09/03/24 10:18 Dose: 325 mg Folic Acid (Folic Acid 1 Mg Tab) 1 mg PO BID [facility] Stop: 09/16/24 20:59 Last Admin: 09/03/24 10:17 Dose: 1 mg Formoterol Fumarate (Formoterol 20 Mcg/2 Ml Vial) 20 mcg NEB BIDR [facility] Stop: 09/17/24 18:59 Last Admin: 09/03/24 06:57 Dose: 20 mcg Hydralazine HCl (Hydralazine Hcl 20 Mg/Ml Vial) 10 mg IV Q4H PRN PRN Reason: SBP > 180 and/or DBP >90 Stop: 09/26/24 18:23 Last Admin: 09/03/24 04:01 Dose: 10 mg Hydralazine HCl (Hydralazine Hcl 25 Mg Tab) 25 mg PO TID [facility] Stop: 10/03/24 08:59 Last Admin: 09/03/24 10:16 Dose: 25 mg Pantoprazole Sodium (Protonix) 40 mg in 10 mls @ 5 mls/min IV BID [facility] Stop: 09/24/24 08:59 Last Admin: 09/03/24 08:56 Dose: 5 mls/min Magnesium Sulfate/Dextrose (Magnesium Sulfate / D5w) 1 gm in 100 mls @ 50 mls/hr IV Q2H [facility] Stop: 09/03/24 11:44 Last Admin: 09/03/24 08:54 Dose: 50 mls/hr Levetiracetam (Levetiracetam 500 Mg Tab) 500 mg PO BID [facility] Stop: 09/16/24 20:59 Last Admin: 09/03/24 10:16 Dose: 500 mg Losartan Potassium (Losartan Potassium 50 Mg Tab) 100 mg PO DAILY [facility]; Protocol Stop: 09/17/24 08:59 Last Admin: 09/03/24 10:17 Dose: 100 mg Melatonin (Melatonin 3 Mg Tab) 3 mg PO HS PRN PRN Reason: Sleep Stop: 09/19/24 00:55 Metoprolol Succinate (Metoprolol Succ 50mg Ext Rel Tab) 50 mg PO QAM [facility] Stop: 10/02/24 13:29 Last Admin: 09/03/24 10:16 Dose: 50 mg Multivitamins/Minerals (Multi Vit W/Minerals Liquid 15 Ml Udc) 15 ml PO QAM [facility] Stop: 10/02/24 08:59 Last Admin: 09/03/24 10:16 Dose: 15 ml PG Care Time/CCT Total # of Minutes Spent Total Time Spent with Patient: Total time spent is greater than 50% in coordination of care (as documented) at patient's floor/unit and/or counseling patient: Advanced Care Planning 20406 Advanced Care Planning 30 Min C[place] [address] SUB INP/OBS CARE 2/35MIN Patient Type Established Medical Decision Making Low Complexity Diagnoses Palliative care by specialist Z51.5 Counseling regarding advanced directives and goals of care Z71.89 Encounter for hospice care discussion Z71.89 Additional Codes Advanced Care Planning - 15207 Advanced Care Planning 30 Min: 39770 Advanced Care Planning 30 Min ([id number])
[2024-09-03] MEDS: POTASSIUM CHLORIDE CRTAB 20 MEQ TABCR PO STA (11:19)
--- NOTE | 2024-09-03 11:28 | Hospitalist Progress Note ---
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 Found to be hypoxic on arrival and CT chest showed PNA. Initial BioFire neg for Influenza and everything else. She then developed a severe encephalopathy and worsening respiratory failure, fever, and tested positive for influenza A several days into her hospital admission. 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 She has since been extubated and is making a very slow recovery with her ongoing encephalopathy, respiratory failure, pneumonia, and poor ability to take p.o. #Acute respiratory failure with hypoxia requiring intubation 2nd to Influenza A with multilobar PNA, s/p bronchoscopy on 08/23- Procal negative on admission and initial BioFire negative, but 5 days in her hospital stay, spiked a fever and became encephalopathic-repeat BioFire was positive for influenza A. Pneumonia worse on CT from admission 08/[address] from 08/15 as an outpatient with increasing nodular opacities Consult pulmonology appreciated-added Cefepime and steroids, recommended ID consult Allergies and prolonged QT prevented addition of atypical coverage initially although her bio fire was negative for mycoplasma, and Legionella urine antigen negative Appreciate ID consult-switched cefepime to meropenem due to encephalopathy She was intubated on 08/22 for being obtunded with severe encephalopathy. Had LP with no evidence of meningitis and she was started on doxycycline with no allergic reaction noted Bronchoscopy 08/23 showed multilobar PNA, BALs collected from bilateral lower lobes, no diffuse hemorrhage-all cultures were negative. She was extubated 08/27, will not reintubate She finished out a course of meropenem and doxycycline Repeat CXR 09/03 remains with stable bilateral multilobar pneumonia and small pleural effusion -Continue bronchodilator nebs, continue inhaled fluticasone, umeclidinium/vilanterol -Tolerating pured diet but not eating much, appreciate speech consultation -Continue to wean off O2 if possible -Would follow CXR to resolution, but has been now opting for hospice -Continue CPAP at night -Follow CBC, BMP, magnesium-replace potassium and magnesium for hypokalemia, hypomagnesemia #Acute Encephalopathy 2nd to influenza A: Developed worsening confusion about 2 to 3 days into her hospitalization- does have baseline moderate expressive aphasia and some cognitive deficits. She had a fall in the a.m. of 08/20-repeat head CT negative for hemorrhage, no new focal neuro deficits. Cefepime switched to meropenem in case cefepime causing worsening delirium but had no improvement. She had constipation which was treated and resolved and had no improvement. She tested positive for influenza A and had severe encephalopathy worsening. CSF was obtained through LP and was negative for infection She is definitely improved since the time she was intubated, however is definitely not back at her baseline mentation. She remains confused, much less verbal than previous, and is unable to express her needs. Her reports that this is not her desired quality of life and now is desiring transition to hospice at a nursing facility Palliative medicine consultation appreciated, case management [facility] -Continue supportive care, promote good sleep-wake cycles -Continue supplemental O2 to keep pulse ox greater than 90% -Continue to ensure bowels are moving, oral intake improves, and electrolyte abnormalities are corrected - is okay with ongoing continued treatment but no escalation of care and transition to comfort measures only in the hospital would be appropriate if has further decline prior to discharge #Fall: Got out of bed on her own on 08/20 a.m. and fell and struck her head on the metal register as witnessed by environmental services Has a very minor abrasion on left upper back otherwise no injuries CT head negative PT/OT evaluation reordered on 09/02 #Asymptomatic bacteriuria- urine culture with Enterococcus faecalis and Pseudomonas aeruginosa Discussed with ID-was treated anyway with meropenem Arevalo catheter removed on 09/03 #Iron deficiency anemia: Hemoglobin 9.3-9.9, iron studies show transferrin saturation very low at 5%. B12 and folate normal, Started oral iron supplement. Does have hematuria microscopic-follow as an outpatient ordinarily recommended but now pursuing hospice. Would not pursue GI workup also as will be on hospice Hgb stable at 9.6 -Follow CBC -Continue ferrous sulfate and folic acid twice daily for now but can discontinue on hospice #Acute HFpEF-Could possibly be due to previous salt tablets that she was on, however no significant leg edema to suggest right sided heart failure. Echo from outpatient in 07/2024 shows EF 60-64%, moderate LVH, small posterior loculated pericardial effusion without tamponade. Repeat echo here with preserved EF, no significant valvular disease. UA with only trace protein, no prior liver problems and LFTs normal Diuresed over 3 L net negative initially with IV Lasix. Converted IV Lasix to p.o. 20 mg daily on 08/19 -CXR 09/03 shows slightly increased pleural effusion -Continue strict I&Os, daily weights, and will discontinue low-sodium diet as she will be on hospice -Continue to hold Lasix and pursuing hospice #Prolonged QT interval-QT difficult to interpret on EKG here even on repeat on 08/18 which shows paced rhythm atrial flutter. Appreciate cardiology consultation-historically when in sinus rhythm, she also had prolonged QT, hence they recommend avoiding QT prolonging agents #HTN -BPs remain quite elevated. She was off of her oral medications since she was intubated and home losartan and metoprolol were resumed on 09/02. -Resume hydralazine at lower dose of 25 Mg p.o. 3 times daily #pAfib/flutter- presence of Watchman hence no anticoagulation, permanent, appreciate cardiology consultation #Hyponatremia/hypernatremia-sodium 130 on arrival and then was briefly hypernatremic from poor p.o. intake. Sodium now normalized -Continue to follow BMP periodically #JG -continue CPAP HS #Recent hemorrhagic stroke-had multiple repeat head CTs during this admission which were negative for recurrent hemorrhagic stroke. Follows with neurology. VTE Prophylaxis - SCDs, Lovenox SQ Disposition -downgrade to medical/surgical unit, will be pursuing hospice at a [facility] on discharge. Continue current care for now but no escalation of care and transition to comfort measures only if has acute decline in the hospital. Hopeful to discharge to [facility] with comfort measures as soon as possible Admission and Anticipated Discharge Date Admission Date: August 17, 2024 Subjective Patient still waxes and wanes with being very lethargic and sleepy and at times is awake and somewhat interactive but still remains quite confused. She denies pain. I met with her at the bedside and he says that her quality of life is not optimal given everything she has been through over the last 6 months with her strokes and now this prolonged hospitalization and he is interested in pursuing hospice at a nursing facility. I discussed her care with palliative medicine as well as case management. Telemetry with atrial flutter and paced rhythm with rates in the 80s. Physical Exam Constitutional: well developed; no acute distress Eyes: + anicteric sclerae Respiratory: + tachypneic (Mild, at rest) Ausculta tion: + crackles (Left base); no rhonchi and no wheezes Cardiovascular: Rate/Rhythm: regular rate and regular rhythm Extremities: no edema Gastrointestinal (Abdomen): normal bowel sounds, soft, nontender, no hepatosplenomegaly Neurologic: moves all extremities, awake and + confused Psychiatric: Orientation: + not oriented to place and + not oriented to time Results & Data Results & Data Vital Signs (Past 12 Hours) Vital Signs Temp Pulse Pulse Resp BP Pulse Ox O2 Del Method 09/03/24 07:15 37.1 C 80 24 164/73 H 91 Nasal Cannula 09/03/24 06:57 80 18 98 Nasal Cannula 09/03/24 03:50 36.8 C 68 18 187/64 H 92 BiPAP 09/03/24 03:32 82 34 H 96 09/02/24 23:36 80 O2 Flow Rate 09/03/24 07:15 3.0 09/03/24 06:57 3.5 09/03/24 03:50 09/03/24 03:32 4 09/02/24 23:36 Laboratory Results CBC, BMP, LFTs, magnesium reviewed Diagnostic Findings Chest x-ray image personally reviewed by me PG Care Time/CCT Total # of Minutes Spent Total Time Spent with Patient: Total time spent is greater than 50% in coordination of care (as documented) at patient's floor/unit and/or counseling patient: Coding Level of Care Code 10696 SUB INP/OBS CARE 3/50MIN Diagnoses Acute hypoxemic respiratory failure J96.01 Pneumonia J18.9 Influenza J11.1 Acute encephalopathy G93.40
[2024-09-04 08:42] LABS: Legionella Culture Source SP
--- NOTE | 2024-09-04 09:06 | Palliative Care Progress Note ---
Date of Service September 04, 2024 Assessment & Plan (1) Palliative care by specialist: (2) Encounter for hospice care discussion: Plan Danielle Pulliam is a 74 year old female presents to the ER 08/17 with shortness of breath and hypertension, admission has been c/b progressive respiratory failure requiring JO x2; now extubated and DNR/DNI. Pt has a baseline expressive aphasia and on my assessment she did not make any attempt to communicate nor follow simple commands. Plan: Spouse would like to continue current level of care at this time, with plan for discharge to SNF for hospice care upon discharge. He does request that we begin process of SNF placement without delay, case management aware. ACP meeting summary: Met with pt's spouse Misbah at bedside for scheduled [facility] meeting from 09:00 - 09:40. Introduced Palliative Medicine and explained our role in advanced care planning, symptom management and navigation through the progression of life limiting disease. Misbah remains receptive to palliative services for goals of care d iscussions. Reviewed we are different from hospice, a home health nurse visiting service. Helped Misbah understand that Pt does require a proxy for medical decisions. Patient has exhibited current lack of decisional capacity based on the inability to convey understanding of personal PMHx, current medical condition, treatment options nor the risks / benefits of those options, and lack of ability to make decisions based on such knowledge. Hospital does not have written documentation of patient wishes concerning her chosen proxy for medical decisions. Per PA [id number], in absence of written documentation of patient wishes, pt's proxy for medical decisions would be her spouse Misbah Pulliam. Misbah expressed concern that he has not seen improvement in the pt's cognitive or functional ability since admission. He shared concern that in her given state he will not be able to care for her properly at home and that this is not fitting with what his would consider an acceptable quality of life. He shared that he would like her to be evaluated for possible SNF placement after discharge and that he wants to focus on "just making sure she is comfortable and does not suffer in what time she has left". We discussed options of continuing current level of care including likely feeding tube placement and SNF with unlikely cognitive/functional recovery vs transition to comfort directed care. Misbah expressed that he has "come to realize she will not improve to the point of returning to a life she would want" and requests transition to hospice care once pt is discharged to SNF. Discussed hospice benefit: an interdisciplinary program offered by nurses, nurses aides, social workers, chaplains and a medical billing manager for patients with a terminal condition and a life expectancy of less than 6 months. This is covered by Medicare at 100%/no out of pocket expense to patient and all meds/supplies needed by patient for the reason they are on hospice are paid for/covered by hospice. The goal is assure quality of life of the patient in their home setting (home, senior care, inpatient hospice setting) by providing symptoms management, psychosocial and spiritual support. However, they cannot offer 24 hours care and if the family is unable to provide that care, they will have to consider personal care with out of pocket cost vs. senior care placement. We discussed the goals of hospice as a patient service and the goals of care; we discussed EOL trajectories and transitions eugene the emotional impact of realizing mortality as a concrete reality from prior abstract considerations. Pt was reassured that no matter where they are along this trajectory, they are not alone - their medical team will remain by their side through their journey. Discussed the pros/cons of accepting help when especially weakened and distressed by pain-which would also help provide relief/decrease caregiver burden/strain. Anticipatory guidance offered. Discussed changes pt may move through in the dying process including but not limited to sleeping more, disorientation when awake, restlessness, diminished senses/inability to respond to stimulus although ability to be aware of them remains intact longer, and changes in body temperatures, skin changes/mottling/cyanosis, respiratory pattern changes, and oral secretions. Family verbalized understanding. The goal is to assure a peaceful . Discussed possible transition to [employer]ECUT[employer] at this time, Misbah shared that he would need to discuss this with other family members. He reinforced desire for discharge to SNF with hospice when pt medically cleared for Dc, but requests current level of care continue for now. Misbah will discuss further with additional family members tonight, we agreed to revisit discussion tomorrow morning. Plan of care discussed with HAZEL, Dr Guajardo (att) and CM. Admission and Anticipated Discharge Date Admission Date: August 17, 2024 Review of Systems Review of Systems: Unobtainable due to cognitive status Physical Exam Constitutional: + ill appearing, + thin, + altered menta l status and + lethargic Pt lying in bed, eyes open spontaneously, did not make effort to follow commands nor communicate. Eyes: PERRL, conjunctivae normal, anicteric sclerae Neck: trachea midline, no thyromegaly Respiratory: no respiratory distress lung sounds diminished bilaterally, scattered rhonchi noted Cardiovascular: Rate/Rhythm: regular rate and + tachycardic Heart Sounds: normal S1 and normal S2 Extremities: + edema Gastrointestinal (Abdomen): normal bowel sounds, soft, nontender, no hepatosplenomegaly Skin: + turgor decreased and + pallor Neurologic: moves all extremities eyes open spontaneously,does not make effort to follow commands / communicate Results & Data Vital Signs (Past 12 Hours) Vital Signs Temp Pulse Pulse Resp BP BP Pulse Ox 09/04/24 07:44 80 32 H 95 09/04/24 07:43 80 32 H 95 09/04/24 07:24 36.9 C 79 18 149/86 H 94 09/04/24 04:13 80 181/86 H 95 09/04/24 02:49 80 26 H 99 09/03/24 23:48 81 173/81 H 98 09/03/24 23:19 92 H 35 H 91 09/03/24 22:06 187/83 H O2 Del Method O2 Flow Rate 09/04/24 07:44 4 09/04/24 07:43 CPAP 4 09/04/24 07:24 BiPAP 09/04/24 04:13 CPAP 09/04/24 02:49 6 09/03/24 23:48 CPAP 09/03/24 23:19 8 09/03/24 22:06 Laboratory Results No further labs or diagnostics in concert with comfort directed care. Diagnostic Findings No further labs or diagnostics in concert with comfort directed care. Medications Administered Current Inpatient Medications Acetaminophen (Acetaminophen 325 Mg Tab) 650 mg PO Q4H PRN PRN Reason: Pain Stop: 09/21/24 08:07 Last Admin: 09/01/24 17:10 Dose: 650 mg Albuterol (Albut/Ipratrop 3mg/0.5mg Neb 3 Ml Vial) 3 ml NEB Q6R PRN; Protocol PRN Reason: Shortness of breath, wheezing Stop: 09/17/24 07:17 Last Admin: 08/30/24 01:55 Dose: 3 ml Aspirin (Aspirin 81 Mg Chew) 81 mg PO DAILY DOREEN Stop: 09/17/24 08:59 Last Admin: 09/04/24 09:22 Dose: 81 mg Bisacodyl (Bisacodyl 10 Mg Supp) 10 mg GA DAILY PRN PRN Reason: Constipation Stop: 09/22/24 07:40 Enoxaparin Sodium (Enoxaparin Inj 40 Mg/0.4 Ml Syr) 40 mg SQ QAM [facility] Stop: 09/24/24 10:59 Last Admin: 09/04/24 09:13 Dose: 40 mg Ferrous Sulfate (Ferrous Sulfate 325 Mg Tab) 325 mg PO BIDM [facility] Stop: 09/19/24 16:59 Last Admin: 09/04/24 09:13 Dose: 325 mg Folic Acid (Folic Acid 1 Mg Tab) 1 mg PO BID [facility] Stop: 09/16/24 20:59 Last Admin: 09/04/24 09:13 Dose: 1 mg Formoterol Fumarate (Formoterol 20 Mcg/2 Ml Vial) 20 mcg NEB BIDR [facility] Stop: 09/17/24 18:59 Last Admin: 09/04/24 07:43 Dose: 20 mcg Hydralazine HCl (Hydralazine Hcl 20 Mg/Ml Vial) 10 mg IV Q4H PRN PRN Reason: SBP > 180 and/or DBP >90 Stop: 09/26/24 18:23 Last Admin: 09/04/24 04:16 Dose: 10 mg Hydralazine HCl (Hydralazine Hcl 25 Mg Tab) 25 mg PO TID [facility] Stop: 10/03/24 08:59 Last Admin: 09/04/24 09:13 Dose: 25 mg Levetiracetam (Levetiracetam 500 Mg Tab) 500 mg PO BID [facility] Stop: 09/16/24 20:59 Last Admin: 09/04/24 09:13 Dose: 500 mg Losartan Potassium (Losartan Potassium 50 Mg Tab) 100 mg PO DAILY [facility]; Protocol Stop: 09/17/24 08:59 Last Admin: 09/04/24 09:13 Dose: 100 mg Melatonin (Melatonin 3 Mg Tab) 3 mg PO HS PRN PRN Reason: Sleep Stop: 09/19/24 00:55 Metoprolol Succinate (Metoprolol Succ 50mg Ext Rel Tab) 50 mg PO QAM [facility] Stop: 10/02/24 13:29 Last Admin: 09/04/24 09:14 Dose: 50 mg Multivitamins/Minerals (Multi Vit W/Minerals Liquid 15 Ml Udc) 15 ml PO QAM DOREEN Stop: 10/02/24 08:59 Last Admin: 09/04/24 09:12 Dose: 15 ml PG Care Time/CCT Total # of Minutes Spent Total Time Spent with Patient: Total time spent is greater than 50% in coordination of care (as documented) at patient's floor/unit and/or counseling patient: Coding Diagnoses Palliative care by specialist Z51.5 Encounter for hospice care discussion Z71.89
--- NOTE | 2024-09-04 16:14 | Hospitalist Progress Note ---
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 Found to be hypoxic on arrival and CT chest showed PNA. Initial BioFire neg for Influenza and everything else. She then developed a severe encephalopathy and worsening respiratory failure, fever, and tested positive for influenza A several days into her hospital admission. She was on a ventilator for several days and had a workup for [facility] [employer] infection with LP which was negative. She has since been extubated and is making a very slow recovery with her ongoing encephalopathy, respiratory failure, pneumonia, and poor ability to take p.o. #Acute respiratory failure with hypoxia requiring intubation 2nd to Influenza A with multilobar PNA, s/p bronchoscopy on 08/23- Procal negative on admission and initial BioFire negative, but 5 days in her hospital stay, spiked a fever and became encephalopathic-repeat BioFire was positive for influenza A. Pneumonia worse on CT from admission 08/[address] from 08/15 as an outpatient with increasing nodular opacities Consult pulmonology appreciated-added Cefepime and steroids, recommended ID consult Allergies and prolonged QT prevented addition of atypical coverage initially although her bio fire was negative for mycoplasma, and Legionella urine antigen negative Appreciate ID consult-switched cefepime to meropenem due to encephalopathy She was intubated on 08/22 for being obtunded with severe encephalopathy. Had LP with no evidence of meningitis and she was started on doxycycline with no allergic reaction noted Bronchoscopy 08/23 showed multilobar PNA, BALs collected from bilateral lower lobes, no diffuse hemorrhage-all cultures were negative. She was extubated 08/27, will not reintubate She finished out a course of meropenem and doxycycline Repeat CXR 09/03 remains with stable bilateral multilobar pneumonia and small pleural effusion -Continue bronchodilator nebs, stopped maintenance inhalers -Tolerating pured diet but not eating much, appreciate speech consultation -continue supplemental O2 -Would follow CXR to resolution, but has been now opting for hospice -Continue CPAP at night if tolerated -no further labs needed, pursuing [facility] #Acute Encephalopathy 2nd to influenza A: Developed worsening confusion about 2 to 3 days into her hospitalization- does have baseline moderate expressive aphasia and some cognitive deficits. She had a fall in the a.m. of 08/20-repeat head CT negative for hemorrhage, no new focal neuro deficits. Cefepime switched to meropenem in case cefepime causing worsening delirium but had no improvement. She had constipation which was treated and resolved and had no improvement. She tested positive for influenza A and had severe encephalopathy worsening. CSF was obtained through LP and was negative for infection She improved since the time she was intubated, however is definitely not back at her baseline mentation. She remains confused, much less verbal than previous, and is unable to express her needs. Her reports that this is not her desired quality of life and now is desiring transition to hospice at a nursing facility Palliative medicine consultation appreciated, case management making referrals to senior care for hospice placement -Continue supportive care, promote good sleep-wake cycles -Continue supplemental O2 to keep pulse ox greater than 90% or for comfort -Continue to ensure bowels are moving, oral intake improves, and electrolyte abnormalities are corrected - is okay with ongoing continued treatment but no escalation of care and transition to comfort measures only in the hospital would be appropriate if has further decline prior to discharge #Fall: Got out of bed on her own on 08/20 a.m. and fell and struck her head on the metal register as witnessed by environmental services Has a very minor abrasion on left upper back otherwise no injuries CT head negative #Asymptomatic bacteriuria- urine culture with Enterococcus faecalis and Pseudomonas aeruginosa Discussed with ID-was treated anyway with meropenem Arevalo catheter removed on 09/03 #Iron deficiency anemia: Hemoglobin 9.3-9.9, iron studies show transferrin saturation very low at 5%. B12 and folate normal, Started oral iron supplement. Does have hematuria microscopic-follow as an outpatient ordinarily recommended but now pursuing hospice. Would not pursue GI workup also as will be on hospice Hgb stable at 9.6 -Continue ferrous sulfate and folic acid twice daily for now but can discontinue on hospice #Acute HFpEF-Could possibly be due to previous salt tablets that she was on, however no significant leg edema to suggest right sided heart failure. Echo from outpatient in 07/2024 shows EF 60-64%, moderate LVH, small posterior loculated pericardial effusion without tamponade. Repeat echo here with preserved EF, no significant valvular disease. UA with only trace protein, no prior liver problems and LFTs normal Diuresed over 3 L net negative initially with IV Lasix. Converted IV Lasix to p.o. 20 mg daily on 08/19 -CXR 09/03 shows slightly increased pleural effusion -Continue to hold Lasix and pursuing hospice #Prolonged QT interval-QT difficult to interpret on EKG here even on repeat on 08/18 which shows paced rhythm atrial flutter. Appreciate cardiology consultation-historically when in sinus rhythm, she also had prolonged QT, hence they recommend avoiding QT prolonging agents #HTN -BPs remain quite elevated. She was off of her oral medications since she was intubated and home losartan and metoprolol were resumed on 09/02. -increase hydralazine to 50 Mg p.o. 3 times daily -can dc meds on hospice if having trouble continuing to take meds #pAfib/flutter- presence of Watchman hence no anticoagulation, permanent, appreciate cardiology consultation #Hyponatremia/hypernatremia-sodium 130 on arrival and then was briefly hypernatremic from poor p.o. intake. Sodium now normalized #JG -continue CPAP HS #Recent hemorrhagic stroke-had multiple repeat head CTs during this admission which were negative for recurrent hemorrhagic stroke. Follows with neurology. VTE Prophylaxis - SCDs, Lovenox SQ Disposition -continue medical/surgical unit, will be pursuing hospice at a senior care on discharge. Continue current care for now but no escalation of care and transition to comfort measures only if has acute decline in the hospital. Plan to [facility] to [facility] with comfort measures on 09/05 Admission and Anticipated Discharge Date Admission Date: August 17, 2024 Anticipated date of discharge: 09/05/24 Subjective Pt lethargic and confused. Has been frequently pulling off her supplemental O2 Physical Exam Constitutional: well developed and + lethargic; no acute distress Eyes: + anicteric sclerae Respiratory: Auscultation: + crackles (Left base); no rhonchi and no wheezes Cardiovascular: Rate/Rhythm: regular rate and regular rhythm Extremities: no edema Gastrointestinal (Abdomen): normal bowel sounds, soft, nontender, no hep atosplenomegaly Neurologic: moves all extremities, awake and + confused Psychiatric: Orientation: + not oriented to person, + not oriented to place and + not oriented to time Results & Data Results & Data Vital Signs (Past 12 Hours) Vital Signs Temp Pulse Pulse Resp BP BP Pulse Ox 09/04/24 15:23 36.6 C 82 20 172/78 H 98 09/04/24 13:58 36.7 C 79 26 H 172/73 H 95 09/04/24 12:55 92 09/04/24 09:15 09/04/24 07:44 80 32 H 95 09/04/24 07:43 80 32 H 95 09/04/24 07:24 36.9 C 79 18 149/86 H 94 09/04/24 04:13 80 181/86 H 95 O2 Del Method O2 Flow Rate 09/04/24 15:23 Oxymask 5 09/04/24 13:58 Oxymask 6 09/04/24 12:55 Oxymask 6 09/04/24 09:15 Oxymask 4 09/04/24 07:44 4 09/04/24 07:43 CPAP 4 09/04/24 07:24 BiPAP 09/04/24 04:13 CPAP PG Care Time/CCT Total # of Minutes Spent Total Time Spent with Patient: Total time spent is greater than 50% in coordination of care (as documented) at patient's floor/unit and/or counseling patient: Coding Level of Care Code 68749 SUB INP/OBS CARE 08/30MIN Diagnoses Acute hypoxemic respiratory failure J96.01 Pneumonia J18.9 Influenza J11.1 Acute encephalopathy G93.40
[2024-09-04] MEDS: hydrALAZINE TAB 50 MG TAB PO SCH (23:03)
[2024-09-05 06:50] VITALS: BP 168/78; TEMP 96.8
[2024-09-05 07:42] VITALS: PULSE 83; RESP 28
[2024-09-05 09:01] VITALS: O2SAT 90
[2024-09-05] MEDS: LORazepam 0.5 MG TAB PO STA (10:13)
--- NOTE | 2024-09-05 10:40 | Palliative Care Progress Note ---
Date of Service September 05, 2024 Assessment & Plan (1) Need for comfort care: Plan: Pt to transition at [facility] at [facility] on arrival, per [facility] conversation with spouse on 09/03/24. (2) Anxiety: Plan: Pt scheduled for discharge to SNF with hospice today at 12:30. Orders placed for 05.mg ativan PO x1 now. Plan Danielle Pulliam is a 74 year old female presents to the ER 08/17 with shortness of breath and hypertension, admission has been c/b progressive respiratory failure requiring JO x2; now extubated and DNR/DNI. Pt has a baseline expressive aphasia and is more alert and communicative today. Plan: Spouse requests to continue current level of care at this time, with plan for discharge [facility] with transition to hospice/comfort directed care at SNF. Pt scheduled for transportation at 12:30 today. Orders placed for ativan x1 now, for anxiety as well as premedication with zofran to prevent nausea during transportation. Plan of care discussed with [facility], Dr Guajardo ([facility]) and CM. Admission and Anticipated Discharge Date Admission Date: August 17, 2024 Subjective Assessed pt at bedside, She was transitioned to [facility] on 09/03/24. Pt is awake and alert, sitting upright in bed. She appears comfortable, NAD on RA, warm skin, extremities well perfused. Respiratory effort nonlabored, rate 14/min . No visitors at bedside. Pt c/o "feeling scared" but denies any physical discomfort. She was oriented to person and place only. Review of Systems Review of Systems: All systems reviewed & are unremarkable except as noted in Subjective Physical Exam Constitutional: + ill appearing, + thin, + altered menta l status and + lethargic Pt lying in bed, eyes open spontaneously, did not make effort to follow commands nor communicate. Eyes: PERRL, conjunctivae normal, anicteric sclerae Neck: trachea midline, no thyromegaly Respiratory: no respiratory distress lung sounds diminished bilaterally, scattered rhonchi noted Cardiovascular: Rate/Rhythm: regular rate and + tachycardic Heart Sounds: normal S1 and normal S2 Extremities: + edema Gastrointestinal (Abdomen): normal bowel sounds, soft, nontender, no hepatosplenomegaly Skin: + turgor decreased and + pallor Neurologic: moves all extremities eyes open spontaneously,does not make effort to follow commands / communicate Results & Data Vital Signs (Past 12 Hours) Vital Signs Temp Pulse Pulse Resp BP Pulse Ox O2 Del Method 09/05/24 09:00 90 Nasal Cannula 09/05/24 07:42 83 28 H 95 09/05/24 07:41 83 28 H 95 CPAP 09/05/24 07:20 Nasal Cannula 09/05/24 06:47 36.0 C L 80 16 168/78 H 95 CPAP 09/05/24 02:10 79 23 91 09/04/24 23:28 80 36 H 91 09/04/24 23:00 Nasal Cannula O2 Flow Rate 09/05/24 09:00 5 09/05/24 07:42 4 09/05/24 07:41 4 09/05/24 07:20 4 09/05/24 06:47 4 09/05/24 02:10 4 09/04/24 23:28 4 09/04/24 23:00 4 Laboratory Results No further labs or diagnostics in concert with comfort directed care. Diagnostic Findings No further labs or diagnostics in concert with comfort directed care. Medications Administered Current Inpatient Medications Acetaminophen (Acetaminophen 325 Mg Tab) 650 mg PO Q4H PRN PRN Reason: Pain Stop: 09/21/24 08:07 Last Admin: 09/01/24 17:10 Dose: 650 mg Albuterol (Albut/Ipratrop 3mg/0.5mg Neb 3 Ml Vial) 3 ml NEB Q6R PRN; Protocol PRN Reason: Shortness of breath, wheezing Stop: 09/17/24 07:17 Last Admin: 08/30/24 01:55 Dose: 3 ml Aspirin (Aspirin 81 Mg Chew) 81 mg PO DAILY [facility] Stop: 09/17/24 08:59 Last Admin: 09/05/24 08:52 Dose: 81 mg Bisacodyl (Bisacodyl 10 Mg Supp) 10 mg SC DAILY PRN PRN Reason: Constipation Stop: 09/22/24 07:40 Enoxaparin Sodium (Enoxaparin Inj 40 Mg/0.4 Ml Syr) 40 mg SQ QAM [facility] Stop: 09/24/24 10:59 Last Admin: 09/05/24 08:52 Dose: 40 mg Ferrous Sulfate (Ferrous Sulfate 325 Mg Tab) 325 mg PO BIDM [facility] Stop: 09/19/24 16:59 Last Admin: 09/05/24 08:53 Dose: 325 mg Folic Acid (Folic Acid 1 Mg Tab) 1 mg PO BID [facility] Stop: 09/16/24 20:59 Last Admin: 09/05/24 08:53 Dose: 1 mg Formoterol Fumarate (Formoterol 20 Mcg/2 Ml Vial) 20 mcg NEB BIDR [facility] Stop: 09/17/24 18:59 Last Admin: 09/05/24 07:41 Dose: 20 mcg Hydralazine HCl (Hydralazine Hcl 20 Mg/Ml Vial) 10 mg IV Q4H PRN PRN Reason: SBP > 180 and/or DBP >90 Stop: 09/26/24 18:23 Last Admin: 09/04/24 04:16 Dose: 10 mg Hydralazine HCl (Hydralazine Tab 50 Mg Tab) 50 mg PO TID [facility] Stop: 10/04/24 20:59 Last Admin: 09/05/24 08:53 Dose: 50 mg Levetiracetam (Levetiracetam 500 Mg Tab) 500 mg PO BID [facility] Stop: 09/16/24 20:59 Last Admin: 09/05/24 08:53 Dose: 500 mg Losartan Potassium (Losartan Potassium 50 Mg Tab) 100 mg PO DAILY [facility]; Protocol Stop: 09/17/24 08:59 Last Admin: 09/05/24 08:53 Dose: 100 mg Melatonin (Melatonin 3 Mg Tab) 3 mg PO HS PRN PRN Reason: Sleep Stop: 09/19/24 00:55 Metoprolol Succinate (Metoprolol Succ 50mg Ext Rel Tab) 50 mg PO QAM [facility] Stop: 10/02/24 13:29 Last Admin: 09/05/24 08:53 Dose: 50 mg Multivitamins/Minerals (Multi Vit W/Minerals Liquid 15 Ml Udc) 15 ml PO QAM [facility] Stop: 10/02/24 08:59 Last Admin: 09/05/24 10:13 Dose: 15 ml Ondansetron HCl (Ondansetron 4 Mg Od Tab) 4 mg PO ONCE ONE Stop: 09/05/24 12:01 PG Care Time/CCT Total # of Minutes Spent Total Time Spent with Patient: Total time spent is greater than 50% in coordination of care (as documented) at patient's floor/unit and/or counseling patient: [place] [address] SUB INP/OBS CARE 35MIN Patient Type Established History Expanded Problem Focused Exam Expanded Problem Focused Medical Decision Making Moderate Complexity Diagnoses Need for comfort care Anxiety F41.9
--- NOTE | 2024-09-05 11:17 | Discharge Summary ---
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 Found to be hypoxic on arrival and CT chest showed PNA. Initial BioFire neg for Influenza and everything else. She then developed a severe encephalopathy and worsening respiratory failure, fever, and tested positive for influenza A several days into her hospital admission. She was on a ventilator for several days and had a workup for C[employer] infection with LP which was negative. She has since been extubated and is making a very slow recovery with her ongoing encephalopathy, respiratory failure, pneumonia, and poor ability to take p.o. #Acute respiratory failure with hypoxia requiring intubation 2nd to Influenza A with multilobar PNA, s/p bronchoscopy on 08/23- Procal negative on admission and initial BioFire negative, but 5 days in her hospital stay, spiked a fever and became encephalopathic-repeat BioFire was positive for influenza A. Pneumonia worse on CT from admission 08/[address] from 08/15 as an outpatient with increasing nodular opacities Consult pulmonology appreciated-added Cefepime and steroids, recommended ID consult Allergies and prolonged QT prevented addition of atypical coverage initially although her bio fire was negative for mycoplasma, and Legionella urine antigen negative Appreciate ID consult-switched cefepime to meropenem due to encephalopathy She was intubated on 08/22 for being obtunded with severe encephalopathy. Had LP with no evidence of meningitis and she was started on doxycycline with no allergic reaction noted Bronchoscopy 08/23 showed multilobar PNA, BALs collected from bilateral lower lobes, no diffuse hemorrhage-all cultures were negative. She was extubated 08/27, will not reintubate She finished out a course of meropenem and doxycycline Repeat CXR 09/03 remains with stable bilateral multilobar pneumonia and small pleural effusion -Continue maintenance inhaler, albuterol INH prn -Tolerating pured diet but not eating much, appreciate speech consultation -continue supplemental O2 -Would follow CXR to resolution, but now opting for hospice so not necessary -Continue CPAP at night if tolerated -no further labs needed, pursuing [employer]ER -can use ativn prn anxiety-got one dose on day of discharge and worked well -can use roxanol prn SOB or pain but she has not required any doses throughout her hospitalization #Acute Encephalopathy 2nd to influenza A: Developed worsening confusion about 2 to 3 days into her hospitalization- does have baseline moderate expressive aphasia and some cognitive deficits. She had a fall in the a.m. of 08/20-repeat head CT negative for hemorrhage, no new focal neuro deficits. Cefepime switched to meropenem in case cefepime causing worsening delirium but had no improvement. She had constipation which was treated and resolved and had no improvement. She tested positive for influenza A and had severe encephalopathy worsening. CSF was obtained through LP and was negative for infection She improved since the time she was intubated, however is definitely not back at her baseline mentation. She remains confused, much less verbal than previous, and is unable to express her needs. Her reports that this is not her desired quality of life and now is desiring transition to hospice at a nursing facility Palliative medicine consultation appreciated, case management making referrals to group home for hospice placement -Continue supportive care, promote good sleep-wake cycles -Continue supplemental O2 for comfort -Continue to ensure bowels are moving, oral intake improves, and electrolyte abnormalities are corrected - is okay with ongoing continued treatment but no escalation of care and transition to comfort measures only #Fall: Got out of bed on her own on 08/20 a.m. and fell and struck her head on the metal register as witnessed by environmental services Has a very minor abrasion on left upper back otherwise no injuries CT head negative #Asymptomatic bacteriuria- urine culture with Enterococcus faecalis and Pseudomonas aeruginosa Discussed with ID-was treated anyway with meropenem Arevalo catheter removed on 09/03 #Iron deficiency anemia: Hemoglobin 9.3-9.9, iron studies show transferrin saturation very low at 5%. B12 and folate normal, Started oral iron supplement. Does have hematuria microscopic-follow as an outpatient ordinarily recommended but now pursuing hospice. Would not pursue GI workup also as will be on hospice Hgb stable at 9.6 -dc ferrous sulfate and folic acid twice daily on hospice #Acute HFpEF-Could possibly be due to previous salt tablets that she was on, however no significant leg edema to suggest right sided heart failure. Echo from outpatient in 07/2024 shows EF 60-64%, moderate LVH, small posterior loculated pericardial effusion without tamponade. Repeat echo here with preserved EF, no significant valvular disease. UA with only trace protein, no prior liver problems and LFTs normal Diuresed over 3 L net negative initially with IV Lasix. Converted IV Lasix to p.o. 20 mg daily on 08/19 -CXR 09/03 shows slightly increased pleural effusion -no further Lasix on hospice #Prolonged QT interval-QT difficult to interpret on EKG here even on repeat on 08/18 which shows paced rhythm atrial flutter. Appreciate cardiology consultation-historically when in sinus rhythm, she also had prolonged QT, hence they recommend avoiding QT prolonging agents #HTN -BPs remain quite elevated. She was off of her oral medications since she was intubated and home losartan and metoprolol were resumed on 09/02. -increased hydralazine further to 50 Mg p.o. 3 times daily after resuming it- continue this dose for now -can dc meds on hospice if has difficulty taking meds #pAfib/flutter- presence of Watchman hence no anticoagulation, permanent, appreciate cardiology consultation #Hyponatremia/hypernatremia-sodium 130 on arrival and then was briefly hypernatremic from poor p.o. intake. Sodium now normalized #JG -continue CPAP HS #Recent hemorrhagic stroke-had multiple repeat head CTs during this admission which were negative for recurrent hemorrhagic stroke. Follows with neurology. VTE Prophylaxis - SCDs, Lovenox SQ Disposition -dc to [facility] with hospice Notes For Next Care Provider Medication Changes From Visit See list Admission HPI Per Admitting Provider Danielle Pulliam is a 74 year old female presents to the ER with shortness of breath and hypertension. provides history at bedside due to patient expressive aphasia from prior stroke. Her notes her blood pressure was well controlled up until a couple of days ago. No recent change in medications. BP 190/96 this morning. She has been short of breath since her previous stroke. She saw pulmonology 3 days ago for this and under went CT chest. However since then her breathing has become much worse and today her O2 sats were dropping to 74% on room air. She has oxygen prescribed but only has been needing this intermittently throughout the day and her O2 sats have never dropped this low on room air. She denies any choking or coughing after eating. No chest pain, nasal congestion, cough, sinus pain. No fever or chills. No gastrointestinal or urinary symptoms. Only recent medication change has been to come off her sodium pill which she was taking for SIADH to help with her blood pressure which she stopped around 3 weeks ago. No prior history of heart failure. Discharge Exam Constitutional well developed; no acute distress Eyes + anicteric sclerae Respiratory Auscultation: + crackles (Left base); no rhonchi and no wheezes Cardiovascular Rate/Rhythm: regular rate and regular rhythm Extremities: no edema Gastrointestinal (Abdomen) normal bowel sounds, soft, nontender, no hepatosplenomegaly Neurologic moves all extremities, awake and + confused Psychiatric Orientation: + not oriented to person, + not oriented to place and + not oriented to time Discharge Plan Discharge Items Patient Disposition: Hospice - Medical Facility Reason For Visit: ACUTE ON CHRONIC HFpEF Discharge Diagnosis: Influenza A, pneumonia Ventilator dependent respiratory failure Severe acute encephalopathy Acute on chronic HFpEF Activity: As commented below Bathing: No limitations Exercise/Sports: As tolerated Non-emergency contact: Primary Care Provider Call non-emergency contact if: you have any medication questions and your symptoms worsen Follow-up/Referrals: Becky Tavarez MD [Primary Care Provider] - (You do not need to follow-up with your PCP as you are transitioning to hospice care.) Diet: Regular Diet Texture: Pureed (blended smooth) Addtl Attending Provider Instructions: You had a prolonged hospitalization for severe pneumonia, respiratory failure, influenza A, and encephalopathy/confusion. You have still not made a complete recovery and you will now go to a group home with a focus on comfort measures. Some of your medications have been discontinued that are not necessary for comfort. You do not need any further blood work while you are on comfort measures only. You can take lorazepam as needed for anxiety, and Roxanol as needed for pain or shortness of breath. Pending Studies at Discharge: No Stand-Alone Forms: My [facility] Skilled Items Patient informed of condition?: Yes DNR: Yes Discharge Level of Care: Other Communicable Disease: No Discharge Prognosis: Stable Lines: None Urinary Catheter: No Medications and DC Order Prescriptions: New lorazepam 0.5 mg tablet 0.5 mg PO Q8H PRN (Reason: anxiety) Qty: 9 0RF morphine concentrate 100 mg/5 mL (20 mg/mL) solution 5 mg PO Q6H PRN (Reason: pain or shortness of breath) Qty: 15 0RF Continued metoprolol succinate [Toprol XL] 50 mg tablet extended release 24 hr 50 mg PO DAILY Qty: 30 0RF levetiracetam [Keppra] 500 mg Tablet 500 mg PO BID Qty: 60 0RF aspirin 81 mg Tablet,Chewable 81 mg PO DAILY Qty: 30 0RF albuterol sulfate [Ventolin HFA] 90 mcg/actuation HFA aerosol inhaler 2 puff inhalation Q4H PRN (Reason: Shortness Of Breath) Qty: 1 0RF olmesartan 40 mg tablet 40 mg PO DAILY Qty: 30 0RF Trelegy Ellipta 100-62.5-25 mcg blister with device 1 inh inhalation DAILY Qty: 1 0RF Changed hydralazine 50 mg Tablet 50 mg PO TID Qty: 90 0RF Discontinued prednisone 50 mg tablet 50 mg PO DAILY Qty: 3 0RF Rx Instructions: Take [address] chest, then [address] chest and [address] chest fluticasone propionate [Flonase Allergy Relief] 50 mcg/actuation spray,suspension 2 spray intranasal DAILY PRN (Reason: Allergy Symptoms) Rx Instructions: administer into each nostril multivitamin Tablet 1 tab PO DAILY folic acid 1 mg tablet 1 mg PO BID cholecalciferol (vitamin D3) 50 mcg (2,000 unit) Capsule 50 mcg PO DAILY magnesium oxide 400 mg (241.3 mg magnesium) Tablet 400 mg PO QAM Qty: 0 0RF metformin 500 mg tablet 200 mg PO BID Discharge Orders: Discharge Order (Routine); Ordered 09/05/24 Ordered By: Anisa Guajardo Admission Data Admit Date/Time: 08/17/24 18:03 Attending Provider: Anisa Guajardo Admit Provider: Jens aSnchez Primary Care Provider: Becky Tavarez Other Providers: Macario Urrutia Coffey; Jens Sanchez; Susan Servin; January José; [facility] Other Interventions: Discharge Summary Assessment (RN) Last Done: 09/05/24 10:47 Hospital Stay Data Consultations 08/17/24 17:12 ED Decision to Admit Stat 08/18/24 10:19 Consult Cardiology Routine 09/01/24 15:39 Consult Palliative Care Routine Diagnostic Imagining Performed 08/17/24 15:17 CT angio chest PE protocol Stat 08/20/24 08:10 CT head/brain wo con Stat 08/20/24 09:30 FL video swallow Routine 08/21/24 09:32 CT head/brain wo con Stat 08/22/24 15:05 CT abd pelvis wo con Urgent 08/22/24 16:31 CT head/brain wo con Stat Pending Results Patient Have Any Pending Studies at Discharge: No Discharge Instructions Given to Patient (Per Discharging Provider) You had a prolonged hospitalization for severe pneumonia, respiratory failure, influenza A, and encephalopathy/confusion. You have still not made a complete recovery and you will now go to a group home with a focus on comfort measures. Some of your medications have been discontinued that are not necessary for comfort. You do not need any further blood work while you are on comfort measures only. You can take lorazepam as needed for anxiety, and Roxanol as needed for pain or shortness of breath. Total Time Total Time Spent Total Time Spent (In Minutes): 35 min Total Time Includes: Examination of the Patient, Discharge Planning, Medication Reconciliation and Communication With Other Providers Coding Level of Care Code 44916 INP/OBS DISCH >30 MIN Diagnoses Acute hypoxemic respiratory failure J96.01 Pneumonia J18.9 Influenza J11.1 Acute encephalopathy G93.40
[2024-09-05] MEDS: ONDANSETRON 4 MG OD TAB PO ONE (11:32)
--- NOTE | 2024-09-08 15:27 | Coding Query ---
CODING QUERY To promote full compliance with coding requirements relating to patient care, provider participation is requested in all cases of inpatient coder uncertainty. Please assist us with the question(s) below: Coding Question(s): Pt admitted in acute respiratory failure, intubated on 08/22 . Dx'd with influenzal pneumonia. Progress note on 08/22 documented Sepsisand subsequent notes. Please check below the phrase that describes the Sepsis present on admission status. Thanks for your help! Suman Aleman [employer]NAGER [employer] [facility] Physician's Response(s): ____x___ Pt was diagnosed/treated for Sepsis NOT Present on Admission Pt was diagnosed/treated for Sepsis PRESENT on Admission Principal Diagnosis: "that condition established after study, to be chiefly responsible for occasioning the admission of the patient to the hospital for care." Co-Existing Principal Diagnosis: "when two or more diagnoses equally meet the criteria for principal diagnosis as determined by the circumstances of admission, diagnostic work up, and/or therapy provided, and the Alphabetic Index, Tabular List, or another coding guideline does not provide sequencing direction, any one of the diagnoses may be sequenced first." "When the physician has documented what appears to be a current diagnosis in the body of the record, but has not included the diagnosis in the final diagnostic statement, the physician should be asked whether the diagnosis should be added." (Source Coding Clinic 2 QTR90. p3-4) [facility]
== END 2024-09-05 12:27 | disposition hospice, inpatient (51) | DRG 208 ==
LOC: ED 14:49 → 4W 18:03 → SUATTDRO 18:03 → 4W 19:44 → 1E 08-22 17:24 → 2E 08-28 22:57 → 3N 09-03 17:45